=== PATIENT | female | born 1945 | race Caucasian/White ===

== ENCOUNTER 2017-09-01 11:33 | Inpatient (IN) | payer MEDICARE, OTHER ==
[~2017-09-01] VITALS: Ht 165.1 cm; Wt 70.7 kg
[~2017-09-01 11:33] MED LIST: ARAVA20 MG PO; METOPROLOL TART25 MG PO; PREDNISONE5 MG PO; XARELTO20 MG PO; ZOLOFT100 MG PO
[2017-09-01] MEDS ORDERED: PACERONE200 MG PO (12:06)
[2017-09-01] MEDS ORDERED: TOPROL XL100 MG PO (12:07)
[2017-09-01] MEDS ORDERED: ULTRAM50 MG PO (12:08)
[2017-09-01] MEDS ORDERED: CARTIA XT120 MG PO (12:08)
[2017-09-01] MEDS ORDERED: ELIQUIS5 MG PO (12:09)
--- NOTE | 2017-09-02 08:02 | EKG ---
[facility] [address] [place], [place] [address] Signed Atrial fibrillation Left bundle branch block Abnormal ECG When compared with ECG of 01-SEP-2017 12:01, (Unconfirmed) No significant change was found Confirmed by MADELIN COLVIN MD ([id number]) on 09/02/2017 8:02:37 AM Electronically Signed By: MADELIN COLVIN MD 09/02/17 0802 PATIENT NAME: KATTY QUINN DEBRA Electrocardiogram DATE OF : 45 PHYSICIAN: MADELIN COLVIN MD REPORT #: [id number] REPORT IS CONFIDENTIAL AND NOT TO BE RELEASED WITHOUT AUTHORIZATION
[2017-09-07] MEDS ORDERED: SULFAMETHOXAZO1 EAC1 PO (11:07)
== END 2017-09-07 16:06 | disposition home or self-care (01) | DRG 291 ==
LOC: ED 11:33 → CCU 16:25 → MS 09-04 16:00
PROVIDERS: ADMIT Internal Medicine
DX: I11.0 Hypertensive heart disease with heart failure (principal); J96.01 Acute respiratory failure with hypoxia; G93.40 Encephalopathy, unspecified; N39.0 Urinary tract infection, site not specified; I50.33 Acute on chronic diastolic (congestive) heart failure; K75.89 Other specified inflammatory liver diseases; I48.0 Paroxysmal atrial fibrillation; M06.9 Rheumatoid arthritis, unspecified; F41.9 Anxiety disorder, unspecified; B96.1 Klebsiella pneumoniae [K. pneumoniae] as the cause of diseases classified elsewhere; F17.210 Nicotine dependence, cigarettes, uncomplicated
CPT/HCPCS: 36415; 36600; 71010; 71020; 74177; 80048; 80053; 80069; 80076; 81001; 82803; 83605; 83690; 83735; 83880; 84100; 84425; 84439; 84443; 84484; 85025; 85610; 85730; 87040; 87077; 87088; 87186; 93005; 93010; 93306; 94640; 94660; 94667; 94668; 94762; 97110; 97116; 97161; J0295; J0696; J2405; J3475; J3480; J7040; J7120; J7512; Q9967

== ENCOUNTER 2019-07-27 13:53 | Emergency (ER) | payer MEDICARE, OTHER ==
[~2019-07-27] VITALS: Ht 167.6 cm; Wt 61.6 kg
[~2019-07-27 13:53] MED LIST changes: +CARTIA XT120 MG PO; +ELIQUIS5 MG PO; +PACERONE200 MG PO; +SULFAMETHOXAZO1 EAC1 PO; +TOPROL XL100 MG PO; +ULTRAM50 MG PO
[2019-07-27] MEDS ORDERED: NORCO 5-325 TA1 EACH PO (16:29)
== END 2019-07-27 17:19 | disposition home or self-care (01) ==
LOC: ED 13:53
DX: S59.202A Unspecified physeal fracture of lower end of radius, left arm, initial encounter for closed fracture (principal); X58.XXXA Exposure to other specified factors, initial encounter; I48.91 Unspecified atrial fibrillation; F17.200 Nicotine dependence, unspecified, uncomplicated; Z88.5 Allergy status to narcotic agent; Z91.048 Other nonmedicinal substance allergy status; Z79.899 Other long term (current) drug therapy; Z79.52 Long term (current) use of systemic steroids
CPT/HCPCS: 73110; 73130; 99283; 99406

== ENCOUNTER 2020-04-03 09:20 | Emergency (ER) | payer MEDICARE, OTHER ==
[~2020-04-03] VITALS: Ht 167.6 cm; Wt 61.2 kg
--- OUTSIDE RECORDS SUMMARY | ~2020-04-03 | XMS | Encounter Summary ---
Demographics + + + | Address | [address] | | | [place] [address] | + + + | Home Phone | | + + + | Preferred Language | Unknown | + + + | Marital Status | | + + + | Mormonism Affiliation | 1041 | + + + | Race | Unknown | + + + | Ethnic Group | Unknown | + + + Author + + + | Author | [facility] | | | and [place] | + + + | Organization | [facility] | | | and [place] | + + + | Address | Unknown | + + + | Phone | Unavailable | + + + Support + + + + + | Name | Relationship | Address | Phone | + + + + + | Juanita Espinal | ECON | [address] | | | | | [place] | | | | | [address] | | + + + + + Care Team Providers + +------+ + | Care Order Make Up Clerk Name | Role | Phone | + +------+ + | Hemanth Lima PCP | | | MD | | | + +------+ + Reason for Referral Evaluate & Treat (Routine) +--------+ + + + + + | Status | Reason | Specialty | Diagnoses / | Referred By | Referred To | | | | | Procedures | Contact | Contact | +--------+ + + + + + | Closed | Specialty | Podiatry | Diagnoses | [facility], | [facility], | | | Services | | Fracture of | Omi | Jaswant Huizar DPM | | | Required | | left foot, | MD Rm | [address] | | | | | closed, | [address] | [place] | | | | | initial | [place] | [place], [place] | | | | | encounter | [place], [place] | [address] | | | | | | [address] | Phone: | | | | | | Phone: | [phone] | | | | | | [phone] | Fax: | | | | | | Fax: | [phone] | | | | | | [phone] | | +--------+ + + + + + Evaluate & Treat (Routine) +--------+ + + + + + | Status | Reason | Specialty | Diagnoses / | Referred By | Referred To | | | | | Procedures | Contact | Contact | +--------+ + + + + + | Closed | Specialty | Orthopedic | Diagnoses | [place], | [place], | | | Services | Surgery | Fracture of | Omi | Chalino, DO | | | Required | | left foot, | MD Rm | [address] | | | | | closed, | [address] | [place] | | | | | initial | [place] | [place] | | | | | encounter | [place] | [address] | | | | | | [address] | Phone: | | | | | | Phone: | [phone] | | | | | | [phone] | Fax: | | | | | | Fax: | [phone] | | | | | | [phone] | | +--------+ + + + + + Reason for Visit + + + | Reason | Comments | + + + | Foot Pain | | + + + Encounter Details +--------+ + + + + | Date | Type | Department | Care Team | Description | +--------+ + + + + | 07/17/ | Emergency | [facility] | [facility]i Omi | Fracture of left | | 2017 | | [facility] | MD mR [address] | foot, closed, | | | | CENTER [address] | [address] [place] | initial encounter | | | | [place], [place] | [place] [address] | (Primary Dx); Fall, | | | | [address] | [phone] | initial encounter; | | | | [phone] | | Acute pain | +--------+ + + + + Social History + + + +--------+ + | Tobacco Use | Types | Packs/Day | Years | Date | | | | | Used | | + + + +--------+ + | Former Smoker | Cigarettes | 0.5 | 20 | Quit: 11/18/2016 | + + + +--------+ + + +---+---+---+ | Smokeless Tobacco: | | | | | Never Used | | | | + +---+---+---+ + + | Comments: On and off for 20yrs | + + + + +---------+ + | Alcohol Use | Drinks/Week | oz/Week | Comments | + + +---------+ + | No | 0 Standard drinks | 0.0 | | | | or equivalent | | | + + +---------+ + + + + | Sex Assigned at | Date Recorded | | | | + + + | Not on file | | + + + + + + + | Job Start Date | Occupation | Industry | + + + + | Not on file | Not on file | Not on file | + + + + + + + + | Travel History | Travel Start | Travel End | + + + + + + | No recent travel history available. | + + documented as of this encounter Last Filed Vital Signs + + + + + | Vital Sign | Reading | Time Taken | Comments | + + + + + | Blood Pressure | 149/69 | 07/17/2017 10:29 AM | | | | | PDT | | + + + + + | Pulse | 81 | 07/17/2017 10:29 AM | | | | | PDT | | + + + + + | Temperature | 36.8 C (98.3 F) | 07/17/2017 9:27 AM | | | | | PDT | | + + + + + | Respiratory Rate | 16 | 07/17/2017 10:29 AM | | | | | PDT | | + + + + + | Oxygen Saturation | 97% | 07/17/2017 10:29 AM | | | | | PDT | | + + + + + | Inhaled Oxygen | - | - | | | Concentration | | | | + + + + + | Weight | 68 kg (150 lb) | 07/17/2017 9:27 AM | | | | | PDT | | + + + + + | Height | - | - | | + + + + + | Body Mass Index | 24.21 | 07/17/2017 8:18 AM | | | | | PDT | | + + + + + documented in this encounter Functional Status + + + + | Functional Status | Response | Date of Assessment | + + + + | Are you deaf or do you have serious | No | 06/06/2017 | | difficulty hearing? | | | + + + + | Are you blind or do you have serious | No | 06/06/2017 | | difficulty seeing, even when wearing | | | | glasses? | | | + + + + | Do you have serious difficulty walking or | Yes | 06/06/2017 | | climbing stairs? (5 years old or older) | | | + + + + | Do you have difficulty dressing or bathing? | Yes | 06/06/2017 | | (5 years old or older) | | | + + + + | Because of a physical, mental, or emotional | Yes | 06/06/2017 | | condition, do you have difficulty doing | | | | errands alone such as visiting a doctor's | | | | office or shopping? [15 years old or | | | | older)] | | | + + + + + + + + | Cognitive Status | Response | Date of Assessment | + + + + | Because of a physical, mental, or emotional | Yes | 06/06/2017 | | condition, do you have serious difficulty | | | | concentrating, remembering, or making | | | | decisions? (5 years old or older) | | | + + + + documented as of this encounter Discharge Instructions AttachmentsThe following attachments cannot be sent through Care Everywhere.Reyes Mcbride )documented in this encounter Medications at Time of Discharge + + + +---------+ + + | Medication | Sig | Dispensed | Refills | Start | End Date | | | | | | Date | | + + + +---------+ + + | predniSONE | Take 5 mg by mouth | | 0 | | | | (DELTASONE) 5 mg | Daily. | | | | | | tablet | | | | | | + + + +---------+ + + | sertraline | Take 100 mg by mouth | | 0 | | | | (ZOLOFT) 100 mg | nightly. | | | | | | tablet | | | | | | + + + +---------+ + + | traMADol (ULTRAM) | Take 2 tablets by | 120 | 1 | 06/29/20 | | | 50 mg | mouth every 6 hours | tablet | | 17 | | | tabletIndications: | as needed for Pain. | | | | | | S/P lumbar fusion | | | | | | + + + +---------+ + + | VITAMIN D, | Take 100 Units by | | 0 | | | | CHOLECALCIFEROL, PO | mouth Daily. | | | | | + + + +---------+ + + | amiodarone | TAKE ONE TABLET BY | 60 | 0 | 07/03/20 | | | (PACERONE) 200 mg | MOUTH TWICE DAILY | tablet | | 17 | 7 | | tablet | | | | | | + + + +---------+ + + | CARTIA XT 120 MG | TAKE ONE CAPSULE BY | 30 | 0 | 07/03/20 | | | 24 hr capsule | MOUTH ONCE DAILY | capsule | | 17 | 7 | + + + +---------+ + + | ELIQUIS 5 MG | TAKE ONE TABLET BY | 60 | 0 | 07/03/20 | | | tablet | MOUTH TWICE DAILY | tablet | | 17 | 7 | + + + +---------+ + + | Magnesium 400 MG | Take 1 capsule by | | 0 | | | | CAPS | mouth Three times a | | | | 7 | | | week. | | | | | + + + +---------+ + + | metoprolol | Take 100 mg by mouth | | 0 | | | | succinate | nightly. | | | | 7 | | (TOPROL-XL) 100 mg | | | | | | | ER tablet | | | | | | + + + +---------+ + + | | Take 1 tablet by | 15 | 0 | 07/17/20 | | | oxyCODONE-acetaminop | mouth every 8 hours | tablet | | 17 | 7 | | hen (PERCOCET) 5-325 | as needed for Pain | | | | | | mg per tablet | for up to 5 days. | | | | | + + + +---------+ + + | rivaroxaban | Take 1 tablet by | 30 | 5 | 07/17/20 | | | (XARELTO) 20 mg | mouth Daily (with | tablet | | 17 | 7 | | tablet | dinner). | | | | | + + + +---------+ + + documented as of this encounter Plan of Treatment + + +--------+ + + | Name | Type | Priori | Associated Diagnoses | Order Schedule | | | | ty | | | + + +--------+ + + | Orthopedic Surgery, | Outpatient | Routin | Fracture of left | Ordered: 07/17/2017 | | External - AMB | Referral | e | foot, closed, | | | Referral | | | initial encounter | | + + +--------+ + + | Podiatry, External - | Outpatient | Routin | Fracture of left | Ordered: 07/17/2017 | | AMB Referral | Referral | e | foot, closed, | | | | | | initial encounter | | + + +--------+ + + documented as of this encounter Procedures + +--------+ + + + | Procedure Name | Priori | Date/Time | Associated Diagnosis | Comments | | | ty | | | | + +--------+ + + + | XR FOOT LEFT 3 + VW | STAT | 07/17/2017 | | Results for this | | | | 10:00 AM | | procedure are in the | | | | PDT | | results section. | + +--------+ + + + | XR ANKLE LEFT 3 + VW | STAT | 07/17/2017 | | Results for this | | | | 10:00 AM | | procedure are in the | | | | PDT | | results section. | + +--------+ + + + documented in this encounter Results XR Foot Left 3 + Vw (07/17/2017 10:00 AM PDT) + + | Specimen | + + | | + + + + + | Narrative | Performed At | + + + | CLINICAL INFORMATION: FOOT PAIN. COMPARISON: None available. | [facility] | | FINDINGS: 3 views of the left ankle. 3 views left foot | | | Moderately displaced fracture of the third metatarsal shaft, distal | | | aspect. Mildly displaced proximal metaphysis of the third metatarsal. | | | Possible nondisplaced fracture at the base of the fourth metatarsal. | | | No joint dislocation. Soft tissue swelling noted. Mild | | | degeneration at the first metatarsophalangeal joint. IMPRESSION | | | - Moderately displaced second metatarsal shaft fracture. Mildly | | | displaced third metatarsal metaphysis fracture and possible | | | nondisplaced fourth metatarsal base fracture. Dictated and Signed by: | | | Bert Farley MD Electronically signed: 07/17/2017 11:43 AM | | + + + + + | Procedure Note | + + | Jai Jeff Results In - 07/17/2017 11:46 AM PDT CLINICAL INFORMATION: FOOT PAIN. | | | | COMPARISON: None available. | | | | FINDINGS: | | 3 views of the left ankle. 3 views left foot | | | | Moderately displaced fracture of the third metatarsal shaft, distal aspect. | | Mildly displaced proximal metaphysis of the third metatarsal. Possible | | nondisplaced fracture at the base of the fourth metatarsal. | | | | No joint dislocation. | | | | Soft tissue swelling noted. | | | | Mild degeneration at the first metatarsophalangeal joint. | | | | | | IMPRESSION - Moderately displaced second metatarsal shaft fracture. Mildly | | displaced third metatarsal metaphysis fracture and possible nondisplaced fourth | | metatarsal base fracture. Dictated and Signed by: Bert Farley MD | | Electronically signed: 07/17/2017 11:43 AM | + + + +---------+ + + | Performing | Address | City/State/Zipcode | Phone Number | | Organization | | | | + +---------+ + + | [facility] | | | | + +---------+ + + XR Ankle Left 3 + Vw (07/17/2017 10:00 AM PDT) + + | Specimen | + + | | + + + + + | Narrative | Performed At | + + + | CLINICAL INFORMATION: FOOT PAIN. COMPARISON: None available. | [facility] | | FINDINGS: 3 views of the left ankle. 3 views left foot | | | Moderately displaced fracture of the third metatarsal shaft, distal | | | aspect. Mildly displaced proximal metaphysis of the third metatarsal. | | | Possible nondisplaced fracture at the base of the fourth metatarsal. | | | No joint dislocation. Soft tissue swelling noted. Mild | | | degeneration at the first metatarsophalangeal joint. IMPRESSION | | | - Moderately displaced second metatarsal shaft fracture. Mildly | | | displaced third metatarsal metaphysis fracture and possible | | | nondisplaced fourth metatarsal base fracture. Dictated and Signed by: | | | Bert Farley MD Electronically signed: 07/17/2017 11:43 AM | | + + + + + | Procedure Note | + + | Jai Jeff Results In - 07/17/2017 11:46 AM PDT CLINICAL INFORMATION: FOOT PAIN. | | | | COMPARISON: None available. | | | | FINDINGS: | | 3 views of the left ankle. 3 views left foot | | | | Moderately displaced fracture of the third metatarsal shaft, distal aspect. | | Mildly displaced proximal metaphysis of the third metatarsal. Possible | | nondisplaced fracture at the base of the fourth metatarsal. | | | | No joint dislocation. | | | | Soft tissue swelling noted. | | | | Mild degeneration at the first metatarsophalangeal joint. | | | | | | IMPRESSION - Moderately displaced second metatarsal shaft fracture. Mildly | | displaced third metatarsal metaphysis fracture and possible nondisplaced fourth | | metatarsal base fracture. Dictated and Signed by: Bert Farley MD | | Electronically signed: 07/17/2017 11:43 AM | + + + +---------+ + + | Performing | Address | City/State/Zipcode | Phone Number | | Organization | | | | + +---------+ + + | [facility] | | | | + +---------+ + + documented in this encounter Visit Diagnoses + + | Diagnosis | + + | Fracture of left foot, closed, initial encounter - Primary | + + | Fall, initial encounter | + + | Acute pain Other acute pain | + + documented in this encounter"
--- OUTSIDE RECORDS SUMMARY | ~2020-04-03 | XMS | Encounter Summary ---
Demographics + + + | Address | [address] | | | [place] [address] | + + + | Home Phone | | + + + | Preferred Language | Unknown | + + + | Marital Status | | + + + | Denominational Affiliation | 1041 | + + + | Race | Unknown | + + + | Ethnic Group | Unknown | + + + Author + + + | Author | [facility] | | | and [place] | + + + | Organization | [facility] | | | and [place] | + + + | Address | Unknown | + + + | Phone | Unavailable | + + + Support + + + + + | Name | Relationship | Address | Phone | + + + + + | Juanita Espinal | ECON | [address] | | | | | [place] | | | | | [address] | | + + + + + Care Team Providers + +------+ + | Care International Travel Consultant Name | Role | Phone | + +------+ + | Hemanth Lima PCP | | | MD | | | + +------+ + Reason for Visit Service/Procedure (Routine) +--------+--------+ + + + + | Status | Reason | Specialty | Diagnoses / | Referred By | Referred To | | | | | Procedures | Contact | Contact | +--------+--------+ + + + + | Closed | | Radiology | Diagnoses | | [facility] | | | | | Lumbar | [place], | [address] | | | | | radiculopath | Piotr Huizar MD | [place], | | | | | y | [address] | [place] | | | | | Procedures | [place] | [address] | | | | | [place] INJECT | [place], [place] | Phone: | | | | | ANES/STEROID | [address] | [phone] | | | | | FORAMEN | Phone: | Fax: | | | | | LUMBAR/SACRA | [phone] | [phone] | | | | | L W IMG | Fax: | | | | | | GUIDE ,1 | [phone] | | | | | | LEVEL [place] | | | | | | | INJECT | | | | | | | ANES/STEROID | | | | | | | FORAMEN | | | | | | | LUMBAR/SACRA | | | | | | | L W IMG | | | | | | | GUIDE ,EA | | | | | | | ADD LEVEL | | | | | | | [place] | | | | | | | TRIAMCINOLON | | | | | | | E ACET INJ | | | | | | | NOS, 10 MG | | | | | | | appt 08/14- | | | | | | | Left L5-S1, | | | | | | | Right S1 | | | | | | | TFESI | | | +--------+--------+ + + + + Encounter Details +--------+ + + + + | Date | Type | Department | Care Team | Description | +--------+ + + + + | 08/14/ | Hospital | [facility] | Bogdanowicz, | Lumbar | | 2016 | Encounter | MED CTR XRAY [address] | [place] [address] | radiculopathy; | | | | [address] [place] | [facility] | Spondylolisthesis of | | | | [place] [address] | [place] [address] | lumbar region; DDD | | | | [phone] | [phone] | (degenerative disc | | | | | | disease), lumbar; | | | | | [employer] | Lumbar foraminal | | | | | [place] | stenosis | +--------+ + + + + Social History + + + +--------+------+ | Tobacco Use | Types | Packs/Day | Years | Date | | | | | Used | | + + + +--------+------+ | Current Every Day | Cigarettes | 0.5 | 20 | | | Smoker | | | | | + + + +--------+------+ + +---+---+---+ | Smokeless Tobacco: | | [...] this encounter Last Filed Vital Signs + +---------+ + + | Vital Sign | Reading | Time Taken | Comments | + +---------+ + + | Blood Pressure | 183/82 | 08/14/2016 4:00 PM | | | | | PDT | | + +---------+ + + | Pulse | 94 | 08/14/2016 4:00 PM | | | | | PDT | | + +---------+ + + | Temperature | - | - | | + +---------+ + + | Respiratory Rate | - | - | | + +---------+ + + | Oxygen Saturation | - | - | | + +---------+ + + | Inhaled Oxygen | - | - | | | Concentration | | | | + +---------+ + + | Weight | - | - | | + +---------+ + + | Height | - | - | | + +---------+ + + | Body Mass Index | - | - | | + +---------+ + + documented in this encounter Medications at Time of Discharge + + + +---------+--------+ + | Medication | Sig | Dispensed | Refills | Start | End Date | | | | | | Date | | + + + +---------+--------+ + | predniSONE | Take 5 mg by mouth | | 0 | | | | (DELTASONE) 5 mg | Daily. | | | | | | tablet | | | | | | + + + +---------+--------+ + | sertraline | Take 100 mg by mouth | | 0 | | | | (ZOLOFT) 100 mg | nightly. | | | | | | tablet | | | | | | + + + +---------+--------+ + | VITAMIN D, | Take 100 Units by | | 0 | | | | CHOLECALCIFEROL, PO | mouth Daily. | | | | | + + + +---------+--------+ + | leflunomide | Take 20 mg by mouth | | 0 | | | | (ARAVA) 20 mg tablet | Daily. | | | | 7 | + + + +---------+--------+ + documented as of this encounter Plan of Treatment Not on filedocumented as of this encounter Procedures + +--------+ + + + | Procedure Name | Priori | Date/Time | Associated Diagnosis | Comments | | | ty | | | | + +--------+ + + + | FL EPIDURAL STEROID | Routin | 08/14/2016 | Lumbar | Results for this | | INJECTION LUMBAR | e | 4:15 PM | radiculopathy | procedure are in the | | TRANSFORAMINAL | | PDT | Spondylolisthesis of | results section. | | | | | lumbar region DDD | | | | | | (degenerative disc | | | | | | disease), lumbar | | | | | | Lumbar foraminal | | | | | | stenosis | | + +--------+ + + + documented in this encounter Results FL BEATA Lumbar Transforaminal (08/14/2016 4:15 PM PDT) + + | Specimen | + + | | + + + + + | Narrative | Performed At | + + + | 08/14/2016 Bilateral S1 Transforaminal Epidural Steroid Injection | [facility] | | Diagnosis: Lumbosacral radiculopathy ICD-10 Code M54.16 | [facility] | | Dorothea Calvo presents to the fluoroscopy suite for [facility] | | fluoroscopically-guided bilateral S1 transforaminal epidural steroid | - IMAGING | | injections as part of conservative management for chronic pain with | | | lumbosacral radiculopathy and degenerative disk disease. After | | | informed consent was obtained, the patient lay in the prone position | | | on the fluoroscopy table. The areas were identified under | | | fluoroscopic guidance. The areas were prepped and draped in sterile | | | fashion. A 25-gauge, 1.5-inch needle was inserted into each | | | region and approximately 3 mL of buffered 1% lidocaine was infused. | | | Then, a 22-gauge spinal needle was inserted into the superolateral | | | region of each S1 foramen and advanced into the epidural space | | | under fluoroscopic guidance. Confirmation into the epidural space | | | was obtained with infusion of approximately 1 mL of Omnipaque | | | contrast which showed epidural flow. Then, a combination of 2 mL | | | of 1% lidocaine and 2 mL of 6 mg/mL Celestone was infused divided | | | between the two sides. The patient tolerated the procedure well | | | without complications. Pre- and post-procedure blood pressures | | | were stable. The patient was given verbal as well as written | | | follow-up instructions. Prior to the start of the procedure, the | | | following were performed and/or verified, including correct patient | | | identity, correct site/side marked and visible, agreement on the | | | procedure to be done, correct patient positioning and an accurate | | | procedure consent form. Any safety precautions based on clinical | | | history and/or medication use have been addressed. I personally | | | performed the procedure above. Estimated blood loss: Minimal | | | Complications: None Findings: As expected Anesthesia: Local 1% | | | Lidocaine | | + + + + + + + + | Performing | Address | City/State/Zipcode | Phone Number | | Organization | | | | + + + + + | [facility] | [address] | [place], [place] | [phone] | | [facility] | | [address] | | | - IMAGING | | | | + + + + + documented in this encounter Visit Diagnoses + + | Diagnosis | + + | Lumbar radiculopathy Thoracic or lumbosacral neuritis or radiculitis, unspecified | + + | Spondylolisthesis of lumbar region Acquired spondylolisthesis | + + | DDD (degenerative disc disease), lumbar Degeneration of lumbar or lumbosacral | | intervertebral disc | + + | Lumbar foraminal stenosis Spinal stenosis, lumbar region, without neurogenic | | claudication | + + documented in this encounter Administered Medications + +--------+ +-------+------+------+ | Medication Order | MAR | Action | Dose | Rate | Site | | | Action | Date | | | | + +--------+ +-------+------+------+ | betamethasone (CELESTONE | Given | 08/14/20 | 12 mg | | | | SOLUSPAN) injection 12 mg 12 mg, | | 16 4:08 | | | | | Other, ONCE, [facility] 08/14/16 at | | PM PDT | | | | | 1615, For 1 dose, Shake well. Not | | | | | | | for IV use., | | | | | | + +--------+ +-------+------+------+ +---+---+ | | | +---+---+ + +-------+ +-------+---+---+ | iohexol (OMNIPAQUE 300) 300 | Given | 08/14/20 | 4 mLs | | | | mg/mL injection 4 mL 4 mL, | | 16 4:06 | | | | | Other, ONCE, [facility] 08/14/16 at 1615, | | PM PDT | | | | | For 1 dose | | | | | | + +-------+ +-------+---+---+ +---+---+ | | | +---+---+ + +-------+ +-------+---+---+ | lidocaine (PF) 1% injection 2 | Given | 08/14/20 | 2 mLs | | | | mL 2 mL, Other, ONCE, [facility] | | 16 4:08 | | | | | 08/14/16 at 1615, For 1 dose | | PM PDT | | | | + +-------+ +-------+---+---+ +---+---+ | | | +---+---+ + +-------+ +--------+---+---+ | lidocaine buffered 1% injection | Given | 08/14/20 | 10 mLs | | | | 10 mL 10 mL, Other, ONCE, [facility] | | 16 4:04 | | | | | 08/14/16 at 1615, For 1 dose | | PM PDT | | | | + +-------+ +--------+---+---+ +---+---+ | | | +---+---+ documented in this encounter"
--- OUTSIDE RECORDS SUMMARY | ~2020-04-03 | XMS | Encounter Summary ---
Demographics + + + | Address | [address] | | | [place] [address] | + + + | Home Phone | | + + + | Preferred Language | Unknown | + + + | Marital Status | | + + + | Temple Affiliation | 1041 | + + + | Race | Unknown | + + + | Ethnic Group | Unknown | + + + Author + + + | Author | [facility] | | | and [place] | + + + | Organization | [facility] | | | and [place] | + + + | Address | Unknown | + + + | Phone | Unavailable | + + + Support + + + + + | Name | Relationship | Address | Phone | + + + + + | Juanita Espinal | ECON | [address] | | | | | [place] | | | | | [address] | | + + + + + Care Team Providers + +------+ + | Care Dental Lab Technician Name | Role | Phone | + +------+ + | Hemanth Lima PCP | | | MD | | | + +------+ + Encounter Details +--------+ + + + + | Date | Type | Department | Care Team | Description | +--------+ + + + + | 07/23/ | Hospital | [facility] | Cornia, Jaswant T, | | | 2017 | Encounter | MED CTR OR INTRA OP | DPM [address] | | | | | [address] | [place], [place] | | | | | [place], [place] | [address] | | | | | [address] | [phone] | | | | | [phone] | | | +--------+ + + + + Social [...] + + + | Blood Pressure | 130/46 | 07/23/2017 2:45 PM | | | | | PDT | | + + + + + | Pulse | 57 | 07/23/2017 2:45 PM | | | | | PDT | | + + + + + | Temperature | 36.5 C (97.7 F) | 07/23/2017 2:27 PM | | | | | PDT | | + + + + + | Respiratory Rate | 16 | 07/23/2017 2:45 PM | | | | | PDT | | + + + + + | Oxygen Saturation | 95% | 07/23/2017 2:45 PM | | | | | PDT | | + + + + + | Inhaled Oxygen | - | - | | | Concentration | | | | + + + + + | Weight | 68.5 kg (151 lb) | 07/23/2017 11:36 AM | | | | | PDT | | + + + + + | Height | 170.2 cm (5' 7") | 07/23/2017 11:36 AM | | | | | PDT | | + + + + + | Body Mass Index | 23.65 | 07/23/2017 11:36 AM | | | | | PDT [...] documented as of this encounter Discharge Instructions Lilibeth Webster RN - 07/23/2017 Recovery After Procedural Sedation (Adult) You have been given medicine by vein to make you sleep during your surgery. This may have i ncluded both a pain medicine and sleeping medicine. Most of the effects have worn off. But y ou may still have some drowsiness for the next 6 to 8 hours. Home care Follow these guidelines when you get home: For the next 8 hours, you should be watched by a responsible adult. This person should m sarah sure your condition is not getting worse. Don't drink any alcoholfor the next [address], operate dangerous machinery, or make important business or personal decisio nsduring the next 24 hours. Note: Your healthcare provider may tell you not to take any medicine by mouth for pain or s leep in the next 4 hours. These medicines may react with the medicines you were given in the hospital. This could cause a much stronger response than usual. Follow-up care Follow up with your healthcare provider if you are not alert and back to your usual level o f activity within 12 hours. When to seek medical advice Call your healthcare provider right away if any of these occur: Drowsiness gets worse Weakness or dizziness gets worse Repeated vomiting You can't be awakened Date Last Reviewed: 09/02/[id number] The [employer]. [address] [place] [address]. All righ ts reserved. This information is not intended as a substitute for professional medical care. Always follow your healthcare professional's instructions. documented in this encounter Medications at Time [...] + + + | XR FOOT LEFT 2 VW | Routin | 07/23/2017 | | Results for this | | | e | 2:14 PM | | procedure are in the | | | | PDT | | results section. | + +--------+ + + + | FL FUNMI STATS NO | Routin | 07/23/2017 | | Results for this | | CHARGE | e | 2:14 PM | | procedure are in the | | | | PDT | | results section. | + +--------+ + + + | ORIF METATARSAL | | 07/23/2017 | Closed displaced | | | | | 1:08 PM | fracture of second | | | | | PDT | metatarsal bone of | | | | | | left foot, initial | | | | | | encounter | | + +--------+ + + + | CBC WITH | Routin | 07/23/2017 | | Results for this | | DIFFERENTIAL | e | 12:21 PM | | procedure are in the | | | | PDT | | results section. | + +--------+ + + + | BASIC METABOLIC | Routin | 07/23/2017 | | Results for this | | PANEL | e | 12:21 PM | | procedure are in the | | | | PDT | | results section. | + +--------+ + + + | ECG 12 LEAD | Routin | 07/23/2017 | | Results for this | | | e | 11:55 AM | | procedure are in the | | | | PDT | | results section. | + +--------+ + + + documented in this encounter Results XR Foot Left 2 Vw (07/23/2017 2:14 PM PDT) + + | Specimen | + + | | + + + + + | Narrative | Performed At | + + + | XR FOOT LEFT 2 VW 07/23/2017 1:40 PM HISTORY: intra op. | [facility] | | COMPARISON: None. FINDINGS: Intraoperative x-rays show placement | | | of ORIF hardware into the second metatarsal. IMPRESSION - ORIF | | | of second metatarsal. Dictated and Signed by: Ilya Garcia MD | | | Electronically signed: 07/23/2017 6:09 PM | | + + + + + | Procedure Note | + + | Jai Jeff Results In - 07/23/2017 6:12 PM PDT XR FOOT LEFT 2 VW 07/23/2017 1:40 PM | | | | HISTORY: intra op. | | | | COMPARISON: None. | | | | FINDINGS: | | Intraoperative x-rays show placement of ORIF hardware into the second | | metatarsal. | | | | IMPRESSION - | | ORIF of second metatarsal. | | | | Dictated and Signed by: Ilya Garcia MD | | Electronically signed: 07/23/2017 6:09 PM | + + + +---------+ + + | Performing | Address | City/State/Zipcode | Phone Number | | Organization | | | | + +---------+ + + | [facility] | | | | + +---------+ + + [place] C-Arm Stats No Charge (07/23/2017 2:14 PM PDT) + + | Specimen | + + | | + + + + + | Narrative | Performed At | + + + | No Radiologist interpretation, please see Chart Review. | [facility] | + + + + +---------+ + + | Performing | Address | City/State/Zipcode | Phone Number | | Organization | | | | + +---------+ + + | [facility] | | | | + +---------+ + + CBC with Differential (07/23/2017 12:21 PM PDT) + + + + + + | Component | Value | Ref Range | Performed | Pathologist | | | | | At | Signature | + + + + + + | WBC | 8.5 | 4.0 - 11.0 K/uL | [facility] | | | | | | [facility] | [facility] - | | | | | | [facility] | | + + + + + + | RBC | 3.83 | 3.70 - 5.20 | [facility] | | | | | M/uL [facility] | [facility] - | | | | | | [facility] | | + + + + + + | Hemoglobin | 11.4 (L) | 11.5 - 16.0 | [facility] | | | | | g/dL | [facility] | | | | [facility] - | | | | | | [facility]ORY | | + + + + + + | Hematocrit | 34.9 | 34.0 - 47.0 % | [facility] | | | | | | [facility] | | | [facility] | | | | | | [facility] | | + + + + + + | MCV | 90.9 | 83.0 - 101.0 fL | [facility] | | | | | | [facility] | [facility] | [facility] | | | | | [facility] - | | | | | | [facility]ATORY | | + + + + + + | MCH | 29.7 | 28.0 - 35.0 pg | [facility] | | | | | | [facility] | | | | | | [facility] | | | | | | [facility] - | | | | | | [facility]ATORY | | + + + + + + | MCHC | 32.7 | 32.0 - 36.0 | [facility] | | | | | g/dL | [facility] | [facility] | | | [facility] - | | | | | | [facility]ATORY | | + + + + + + | RDW-CV | 15.1 (H) | <15.0 % | [facility] | | | | | | [facility] | | | | | [facility] - | | | | | | [facility]ORY | | + + + + + + | Platelet | 277 | 140 - 440 K/uL | [facility] | | | Count | | | [facility] | | [facility] | [facility] | | | | | [facility] - | | | | | | [facility]ORY | | + + + + + + | MPV | 8.5 | fL | [facility] | | | | | | [facility] | [facility] | [facility] | | | | | [facility] - | | | | | | [facility]ORY | | + + + + + + | % | 77.5 | 45.0 - 82.0 % | [facility] | | | Neutrophils | | | [facility] | | [facility] | | [facility] | | | | | | [facility] - | | | | | | LAB[facility]ATORY | | + + + + + + | % | 13.2 (L) | 20.0 - 45.0 % | [facility] | | | Lymphocytes | | | [facility] | [facility] | [facility] | | | | | [facility] - | | | | | | LAB[facility]ATORY | | + + + + + + | % Monocytes | 8.0 | 4.0 - 12.0 % | [facility] | | | | | | [facility] | | | | | | [facility] | | | | | [facility] - | | | | | | LAB[facility]ATORY | | + + + + + + | % | 0.7 | 0.0 - 5.0 % | [facility] | | | Eosinophils | | | [facility] | | | | | | [facility] | | | | | | [facility] - | | | | | | LAB[facility]ATORY | | + + + + + + | % Basophils | 0.6 | 0.0 - 1.0 % | [facility] | | | | | | [facility] | [facility] | [facility] | | | | | [facility] - | | | | | | LAB[facility]ATORY | | + + + + + + | Absolute | 6.60 | 1.80 - 8.50 | [facility] | | | Neutrophils | | K/uL | [facility] | [facility] | [facility] | | | | | | [facility] - | | | | | | LAB[facility]ATORY | | + + + + + + | Absolute | 1.10 | 0.60 - 3.20 | [facility] | | | Lymphocytes | | K/uL | [facility] | | [facility] | | [facility] | | | | | | [facility] - | | | | | | LAB[facility]ATORY | | + + + + + + | Absolute | 0.70 | 0.00 - 1.00 | [facility] | | | Monocytes | | K/uL | [facility] | | | | | | [facility] | | | | | | [facility] - | | | | | | LAB[facility]ATORY | | + + + + + + | Absolute | 0.10 | 0.00 - 0.40 | [facility] | | | Eosinophils | | K/uL | [facility] | | | | | | [facility] | | | | | | [facility] - | | | | | | LAB[facility]ATORY | | + + + + + + | Absolute | 0.00 | 0.00 - 0.10 | [facility] | | | Basophils | | K/uL | [facility] | | | | | | [facility] | | | | | | [facility] - | | | | | | LABORATORY | | + + + + + + + + | Specimen | + + | Blood | + + + + + + + | Performing | Address | City/State/Zipcode | Phone Number | | Organization | | | | + + + + + | [facility] | [address] | [place] | [phone] | | [facility] | | [address] | | | - LABORATORY | | | | + + + + + Basic Metabolic Panel (07/23/2017 12:21 PM PDT) + + + + + + | Component | Value | Ref Range | Performed | Pathologist | | | | | At | Signature | + + + + + + | Na | 138 | 136 - 149 | [facility] | | | | | mmol/L | [facility] | | | | | [facility] | | | | [facility] - | | | | | | LAB[facility]ATORY | | + + + + + + | K | 3.5 | 3.5 - 5.1 | [facility] | | | | | mmol/L | [facility] | | | | | | [facility] | | | | | | [facility] - | | | | | | LAB[facility]ATORY | | + + + + + + | Cl | 104 | 98 - 109 mmol/L | [facility] | | | | | | [facility] | | | | | | [facility] | | | | | | [facility] - | | | | | | LAB[facility]ATORY | | + + + + + + | CO2 | 25 | 24 - 31 mmol/L | [facility] | | | | | | [facility] | | | | | | [facility] | | | | | | [facility] - | | | | | | LAB[facility]ATORY | | + + + + + + | Anion Gap | 9 | 3 - 16 mmol/L | [facility] | | | | | | [facility] | | | | | | [facility] | | | | | | [facility] - | | | | | | LAB[facility]ATORY | | + + + + + + | Glucose | 111 (H) | 70 - 109 mg/dL | [facility] | | | | | | [facility] | | | | | | [facility] | | | | | | [facility] - | | | | | | LABORATORY | | + + + + + + | BUN | 9 | 7 - 18 mg/dL | [facility] | | | | | | [facility] | | | | | | [facility] | | | | | | [facility] - | | | | | | LABORATORY | | + + + + + + | Creatinine | 0.61 | 0.60 - 1.30 | [facility] | | | | | mg/dL | [facility] | | | | | | [facility] | | | | | | CENTER - | | | | | | LABORATORY | | + + + + + + | eGFR if not | >60Comment: GLOMERULAR | >=60 | [facility] | | | | FILTRATION | mL/min/1.73m2 | [facility] | | | [place] | RATE,ESTIMATED | | MEDICAL | | | | mL/min/1.95t2Luwa than | | CENTER - | | | | 60 Chronic kidney | | LABORATORY | | | | disease,if found over a | | | | | | 3-month period.Less than | | | | | | 15 Kidney failureFor | | | | | | | | | | | | Americans,multiply the | | | | | | calculated GFR by 1.21. | | | | | | | | | | + + + + + + | Calcium | 9.1 | 8.3 - 10.5 | [facility] | | | | | mg/dL | [facility] | | | | | | [facility] | | | | | | CENTER - | | | | | | LABORATORY | | + + + + + + | BUN/Creatin | 14.8 | | [facility] | | | ine Ratio | | | [facility] | | | | | | [facility] | | | | | | CENTER - | | | | | | LABORATORY | | + + + + + + + + | Specimen | + + | Blood | + + + + + + + | Performing | Address | City/State/Zipcode | Phone Number | | Organization | | | | + + + + + | [facility] | [address] | [place] | [phone] | | [facility] | | [address] | | | - LABORATORY | | | | + + + + + ECG 12 lead (07/23/2017 11:55 AM PDT) + + + + + + | Component | Value | Ref Range | Performed | Pathologist | | | | | At | Signature | + + + + + + | VENTRICULAR | 55 | BPM | [facility] | | | RATE EKG | | | | | + + + + + + | ATRIAL RATE | 55 | BPM | [facility] | | + + + + + + | P-R | 148 | ms | [facility] | | | INTERVAL | | | | | + + + + + + | QRS | 78 | ms | [facility] | | | DURATION | | | | | + + + + + + | Q-T | 472 | ms | [facility] | | | INTERVAL | | | | | + + + + + + | Q-T | 451 | ms | [facility] | | | INTERVAL | | | | | | (CORRECTED) | | | | | + + + + + + | P WAVE AXIS | 74 | degrees | [facility] | | + + + + + + | QRS AXIS | 39 | degrees | [facility] | | + + + + + + | T AXIS | 61 | degrees | [facility] | | + + + + + + | INTERPRETAT | Sinus bradycardia with | | [facility] | | | ION TEXT | sinus arrhythmiaPossible | | | | | | Left atrial | | | | | | enlargementPossible | | | | | | Septal infarct , age | | | | | | undeterminedBorderline | | | | | | ECGWhen compared with | | | | | | ECG of 17-JUL-2017 | | | | | | 08:27,Criteria for | | | | | | Possible Septal infarct | | | | | | , age undetermined are | | | | | | now presentConfirmed by | | | | | | TRACIE RAMOS MD ([id number]) | | | | | | on 07/24/2017 6:58:49 AM | | | | + + + + + + + + | Specimen | + + | | + + + + + | Narrative | Performed At | + + + | | | + + + + +---------+ + + | Performing | Address | City/State/Zipcode | Phone Number | | Organization | | | | + +---------+ + + | [facility] | | | | + +---------+ + + documented in this encounter Visit Diagnoses Not on filedocumented in this encounter Administered Medications + +--------+---------+------+------+------+ | Medication Order | MAR | Action | Dose | Rate | Site | | | Action | Date | | | | + +--------+---------+------+------+------+ + +---+ | albuterol 2.5 mg/3 mL nebulizer | | | solution 2.5 mg 2.5 mg, | | | Nebulization, ONCE PRN, Wheezing, | | | Starting [facility] 07/23/17 at 1429, For | | | 1 dose, Notify anesthesia if | | | patient is wheezing and does not | | | have a history of asthma or COPD | | | or current smoking., | | | Recovery/Phase I | | + +---+ | | | + +---+ | albuterol-ipratropium (DUONEB) | | | 2.5-0.5 mg/3 mL nebulizer | | | solution 3 mL 3 mL, | | | Nebulization, ONCE PRN, Wheezing, | | | Starting [facility] 07/23/17 at 1129, For | | | 1 dose, Pre-op | | + +---+ | | | + +---+ | dextrose 50% injection 12.5-25 | | | g 12.5-25 g, Intravenous, EVERY | | | 15 MIN PRN, Low Blood Sugar, Give | | | 12.5g (25 mL) IV if blood | | | glucose 50-69 mg/dL. Give 25g | | | (50 mL) IV if blood glucose < 50, | | | Starting [facility] 07/23/17 at 1129, | | | Repeat in 15 min if blood glucose | | | remains < 70 mg/dL. Repeat | | | blood glucose in 30 min once | | | blood glucose > 70., Pre-op | | + +---+ | | | + +---+ | fentaNYL (PF) injection 25-50 | | | mcg 25-50 mcg, Intravenous, | | | EVERY 5 MIN PRN, Pain, Starting | | | [facility] 07/23/17 at 1429, Maximum total | | | dose 250 mcg. PACU IV Narcotic | | | Priority: Only use fentanyl for | | | immediate post-op pain (one dose) | | | or breakthrough pain when any | | | other IV narcotics ordered have | | | been ineffective (if ordered). | | | If both morphine and | | | hydromorphone are ordered, use | | | morphine first, and use | | | hydromorphone if morphine | | | ineffective., Recovery/Phase I | | + +---+ | | | + +---+ + +---------+ +---+-------+--------+ | lactated ringers (LR) infusion | New Bag | 07/23/20 | | 100 | Right | | at 10-100 mL/hr, Intravenous, | | 17 12:12 | | mL/hr | Arm | | CONTINUOUS, Starting [facility] 07/23/17 | | PM PDT | | | | | at 1145, TKO., Pre-op | | | | | | + +---------+ +---+-------+--------+ + +---+ | | | + +---+ | ondansetron (ZOFRAN ODT) | | | disintegrating tablet 4 mg 4 mg, | | | Oral, EVERY 6 HOURS PRN, Nausea, | | | Vomiting, Starting [facility] 07/23/17 at | | | 1429, First line agent, | | | Post-op/Phase II | | + +---+ | | | + +---+ | oxyCODONE (ROXICODONE) tablet | | | 2.5-10 mg 2.5-10 mg, Oral, EVERY | | | 3 HOURS PRN, Pain, Starting [facility] | | | 07/23/17 at 1429, First dose must | | | be the lowest dose, can titrate | | | to effective dose by repeat of | | | lowest dose every 60 minutes prn | | | pain, may not exceed maximum dose | | | ordered per interval. Use Pasero | | | Sedation Scale., Post-op/Phase | | | II | | + +---+ | | | + +---+ documented in this encounter
--- OUTSIDE RECORDS SUMMARY | ~2020-04-03 | XMS | Encounter Summary ---
Demographics + + + | Address | [address] | | | [place] [address] | + + + | Home Phone | | + + + | Preferred Language | Unknown | + + + | Marital Status | | + + + | Zoroastrianism Affiliation | 1041 | + + + | Race | Unknown | + + + | Ethnic Group | Unknown | + + + Author + + + | Author | [facility] | | | and [place] | + + + | Organization | [facility] | | | and [place] | + + + | Address | Unknown | + + + | Phone | Unavailable | + + + Support + + + + + | Name | Relationship | Address | Phone | + + + + + | Juanita Espinal | ECON | [address] | | | | | [place] | | | | | [address] | | + + + + + Care Team Providers + +------+ + | Care Mold Changer Name | Role | Phone | + [...] + + | Closed | Specialty | Physical | Diagnoses | Sucharda, | [facility] | | | Services | Therapy | S/P lumbar | Corbin E, | [facility] | | | Required | | fusion | PA-C [address] | | | | | Dizziness | [address] | [address] | | | | | Balance | [address] | [place], [place] | | | | | problem [facility] | [place], | [address] | | | | | - PT | [place] [address] | Phone: | | | | | Procedures | Phone: | [phone] | | | | | [facility] unable | [phone] | Fax: | | | | | to reach, VM | Fax: | [phone] | | | | | full | [phone] | | | | | | 08/17/18 [facility] | | | | | | | 08/10 | | | | | | | Pending Pt | | | | | | | call back | | | | | | | [facility] 08/03 | | | | | | | Called Pt x1 | | | | | | | [facility] 07/12 | | | | | | | HIM | | | +--------+ + + + + + Evaluate & Treat (Routine) +--------+ + + + + + | Status | Reason | Specialty | Diagnoses / | Referred By | Referred To | | | | | Procedures | Contact | Contact | +--------+ + + + + + | Closed | Specialty | Neurology | Diagnoses | Sucharda, | Cruz, | | | Services | | Dizziness | Corbin Pollock, | Marcelo Tan MD | | | Required | | Balance | PA-C [address] | | | | | problem | [address] | [place] | | | | | | [address] | [place] [address] | | | | | | [place], | [address] [place] | | | | | | [place] [address] | [place], [place] | | | | | | Phone: | [phone] Phone: | | | | | | [phone] | [phone] | | | | | | Fax: | Fax: | | | | | | [phone] | [phone] | +--------+ + + + + + Reason for Visit +---------+ + | Reason | Comments | +---------+ + | Post Op | 12M | +---------+ + Encounter Details +--------+---------+ + + + | Date | Type | Department | Care Team | Description | +--------+---------+ + + + | 06/29/ | Office | [facility] [place] | Corbin Boo, | S/P lumbar fusion | | 2018 | Visit | NEUROSURGERY [address] | PA-C [address] | (Primary Dx); | | | | [address] | [address] [place] | Dizziness; Balance | | | | [place], [place] | [place] [address] | problem | | | | [address] | [phone] | | | | | [phone] | | | +--------+---------+ + + + Social History + + [...] + + + | Blood Pressure | 164/72 | 06/29/2018 10:26 AM | | | | | PDT | | + + + + + | Pulse | 56 | 06/29/2018 10:26 AM | | | | | PDT | | + + + + + | Temperature | - | - | | + + + + + | Respiratory Rate | - | - | | + + + + + | Oxygen Saturation | - | - | | + + + + + | Inhaled Oxygen | - | - | | | Concentration | | | | + + + + + | Weight | 59 kg (130 lb) | 06/29/2018 10:26 AM | | | | | PDT | | + + + + + | Height | 167.6 cm (5' 6") | 06/29/2018 10:26 AM | | | | | PDT | | + + + + + | Body Mass Index | 20.98 | 06/29/2018 10:26 AM | | | | | PDT [...] + + documented as of this encounter Patient Instructions Patient Instructions Corbin Boo PA-C - 06/29/2018 9:45 AM PDTI am recommending joaquin t you go and see a neurologist for the evaluation of your severe dizziness. I will order PT for you which will help a little but most important is for you to see a amor rologist. Follow up with us on an as needed basis. documented in this encounter Progress Notes Corbin Boo PA-C - 06/29/2018 9:45 AM PDT Corbin Boo PA-C [address] [facility] [place] [place], [address] [place] [address] PHONE: FAX: NEUROSURGERY FOLLOW-UP CHIEF COMPLAINT: Chief Complaint Patient presents with Post Op 12M HISTORY OF PRESENT ILLNESS: The patient is a 73 y.o. female that had a lumbar fusion for b ack and bilateral leg symptoms on 05/26/2017. She returns and overall is doing well. The gregor prieto mentions that she has been without pain for the last year. Patient denies having any pain from surgery since the day she arrived at home. She was going to physical therapy gagnon clovis her daughter got really sick so she had to quit. She is hoping to get back into physical therapy. Physical therapy was very helpful for her and she was able to get up and walking. 3-4 months ago, patient felt she was doing well with small short walks on stable ground ins rishi of her house. She still has a lot of problems with her balance and dizziness and because of this she is unable to walk. She presents today in a wheelchair. She has to be able to ze ro in on something when she is standing so that she does not fall. When she is standing she is not able to turn otherwise she will fall. In the shower she had severe problems from dizz iness due to everything being white. Getting a dark shower curtain helped this quite a bit. She does have some right leg weakness and numbness however symptoms are stable and much bett er for her now than before surgery. The patient has been walking as much as she can tolerate. She is taking pain medications at this point. The patient has had no issues with her surgical site. PAST MEDICAL HISTORY: Past Medical History: Diagnosis Date Acute pansinusitis Atrial fibrillation ([facility]) 08-18-2016 Atypical chest pain Bilateral leg pain Contusion of knee with skin surface intact Right Anterior COPD (chronic obstructive pulmonary disease) ([facility]) Heart failure ([facility]) [place]AC [place] (hard of hearing) Hyperlipoproteinemia type Li-a Impacted cerumen of right ear Low back pain Lumbar foraminal stenosis 08/13/2016 Lumbar herniated disc L1/T2 Left Lumbar neuritis L3-L4, L4-L5, L5/S1 Lumbar spondylosis Lumbar stenosis Moderate major depression, single episode ([facility]) Neoplasm of uncertain behavior of skin PONV (postoperative nausea and vomiting) projectile vomitting waking up after surgery Primary localized osteoarthritis of left hip Rheumatoid arthritis involving multiple sites ([facility]) Sacroiliac pain Spinal stenosis, lumbar Lumbar canal with neurogenic claudication Spondylolisthesis of lumbar region L3/L4, L4/L5 TB (tuberculosis) Thoracic neuritis T1-T2 PAST SURGICAL HISTORY: Past Surgical History: Procedure Laterality Date APPENDECTOMY Cataract surgery 2008 Dr. Andrew Maldonado FOOT SURGERY Left 07/23/2017 Procedure: O.R.I.F. of Left 2nd Metatarsal Fracture; Surgeon: Jaswant Dolan DPM; Locati on: [facility] Anterior 05/26/2017 Procedure: L2-3, L3-4, L4-5 Lateral Anterior Interbody Fusion; L5-S1 Transforaminal Lumbar Interbody Fusion; Posterior Fusion @ L2-3, L3-4, L4-5, L5-S1; Surgeon: Edin Lynn MD; L ocation: [facility] OR Tumor in neck [facility] CURRENT MEDICATIONS: Current Outpatient Prescriptions Medication Sig Dispense Refill amiodarone (PACERONE) 200 mg tablet TAKE ONE TABLET BY MOUTH TWICE DAILY 180 tablet 3 apixaban (ELIQUIS) 5 mg tablet TAKE ONE TABLET BY MOUTH TWICE DAILY 60 tablet 5 CARTIA XT 120 MG 24 hr capsule TAKE ONE CAPSULE BY MOUTH ONCE DAILY 30 capsule 5 furosemide (LASIX) 20 mg tablet Take 20 mg by mouth. Three times weekly. metoprolol succinate (TOPROL-XL) 50 mg 24 hr tablet Take 1 tablet by mouth nightly. 90 tablet 3 predniSONE (DELTASONE) 5 mg tablet Take 5 mg by mouth Daily. sertraline (ZOLOFT) 100 mg tablet Take 100 mg by mouth nightly. spironolactone (ALDACTONE) 100 MG tablet Take 100 mg by mouth Daily. traMADol (ULTRAM) 50 mg tablet Take 2 tablets by mouth every 6 hours as needed for Pain . 120 tablet 1 VITAMIN D, CHOLECALCIFEROL, PO Take 100 Units by mouth Daily. No current facility-administered medications for this visit. ALLERGIES: Allergies Allergen Reactions Adhesive & Tape Other (See Comments) Blisters where tape & bandages Uncoded Nonscreenable Allergen Nausea And Vomiting Problems related to anesthetic when waking up Codeine Rash Nabumetone Diarrhea SOCIAL HISTORY: The patient reports that she quit smoking about 19 months ago. Her smoking use included Ci garettes. She has a 10.00 pack-year smoking history. She has never used smokeless tobacco. S he reports that she does not drink alcohol or use drugs. FAMILY HISTORY: Family History Problem Relation Age of Onset Tuberculosis Father 26 Cancer Mother 77 Alcohol abuse Mother No Known Problems Paternal Grandfather No Known Problems Paternal Grandmother No Known Problems Maternal Grandfather Lupus Maternal Grandmother Alcohol abuse Sister 2 sisters No Known Problems Brother Other (see comment) Sister Pancreatic cancer No Known Problems Child INTERIM PHYSICAL EXAMINATION: Blood pressure 164/72, pulse 56, height 1.676 m (5' 6"), weight 59 kg (130 lb), not current ly . Body mass index is 20.98 kg/m. REVIEW OF SYSTEMS GENERALLY: No fever, no night sweats, no anemia, no fatigue, no recent profound weight ch anges. EYES: No eye problems, no use of corrective lenses, no eye injury, no double vision, no bl indness. EARS, NOSE, AND THROAT: No changes in taste or smell, no hearing difficulty, no ringing in the ears, no ear drainage, no dizziness, no voice changes, no difficulty swallowing, no sig nificant snoring, no sleep apnea, no sinus problems, + major dental work. NEUROLOGICALLY: Please see the review of systems discussed above in the history of present illness. In addition, the patient has numbness/pain of legs, coordination difficulty , andre nge in walk. PSYCHIATRIC: + depression, no sleep disorders, + anxiety, no bipolar disorder, no psychoti c episodes. CARDIOVASCULAR: No heart attacks, no heart murmur, no heart fluttering, no chest pain, no ankle swelling. LUNG DISEASE: No shortness of breath, no cough, no tuberculosis, no bloody cough, no asth ma, no emphysema/COPD. GASTROINTESTINAL: No bowel disease, no nausea or vomiting, no rectal bleeding, no constipa tion, no stool incontinence, no liver disease, no gallbladder disease, no abdominal pain, no ulcers. KIDNEY DISEASE: No urinary frequency, no painful or difficult urination, no incontinence. ENDOCRINE: No diabetes, no thyroid disease, no osteopenia or osteoporosis, no breast drain age. SKIN: No breast lumps, no skin changes, no rashes, no itches. HEMATOLOGIC/LYMPHATIC: No enlarged lymph nodes, no easy or unusual bleeding, no personal h istory of cancer. RHEUMATOLOGIC: No joint arthritis, + rheumatoid arthritis. GENERAL: Dorothea Calvo is in no acute distress with unlabored respirations. SPINE: The patient s incisions are well healed. EXTREMITIES: No lower extremity edema. NEUROLOGICAL EXAMINATION: MENTAL STATUS: The patient is awake, alert, and oriented. She follows simple and complex commands MOTOR EXAM: Motor strength is 5/5. This is unchanged when compared to the preoperative exa m. SENSORY EXAM: The sensory examination is worsened when compared to the preoperative exam. Fairly significant to hypertensivity to right medial calf. When patient performed a rhomberg test she was very unsteady and had trouble self correctin g. She had to open her eyes and take a step to prevent falling. No pronator drift was apprec iated. RADIOGRAPHIC REVIEW: The patient s x-rays show stable instrumentation and alignment and were reviewed with the patient today. Increased bony fusion is noted but it is not complete. ASSESSMENT: Encounter Diagnoses Name Primary? S/P lumbar fusion Yes Dizziness Balance problem Past Medical History: Diagnosis Date Acute pansinusitis Atrial fibrillation (HCC) 08-18-2016 Atypical chest pain Bilateral leg pain Contusion of knee with skin surface intact Right Anterior COPD (chronic obstructive pulmonary disease) ([facility]) Heart failure ([facility]) [place] (hard of hearing) Hyperlipoproteinemia type Li-a Impacted cerumen of right ear Low back pain Lumbar foraminal stenosis 08/13/2016 Lumbar herniated disc L1/T2 Left Lumbar neuritis L3-L4, L4-L5, L5/S1 Lumbar spondylosis Lumbar stenosis Moderate major depression, single episode (HCC) Neoplasm of uncertain behavior of skin PONV (postoperative nausea and vomiting) projectile vomitting waking up after surgery Primary localized osteoarthritis of left hip Rheumatoid arthritis involving multiple sites (HCC) Sacroiliac pain Spinal stenosis, lumbar Lumbar canal with neurogenic claudication Spondylolisthesis of lumbar region L3/L4, L4/L5 TB (tuberculosis) Thoracic neuritis T1-T2 PLAN: Overall, the patient is doing okay. Most of the preoperative symptoms are resolving as exp ected. We discussed increasing the patient s activities now allowing up to a 75 pound lifting re striction. The patient should increase range of motion activities as tolerated. They shoul d continue regular exercise and strengthening with the hope that they can avoid additional s urgery. senior care pain medication should be continued and tapered by their primary care provider or pain management. I spoke with her extensively about seeing a neurologist. I feel this is h er best chance to identify the source of her dizziness and have intervention for her dizzine ss. Based on the patient's reaction in response I am somewhat suspicious whether she will u ltimately go or not. Physical therapy will likely help her a little but given her severe di zziness I feel that a neurologist will ultimately be necessary for her to truly be independe nt out of her wheelchair. He may then, it will depend on the neurologist workup and what he /she finds as the source of her dizziness. The patient no longer needs follow-up for this issue. They can contact us should new issue s develop. Thank you for allowing me to care for this patient. I, Corbin Boo PA-C, personally performed the services described in this documentati on, as scribed by CHAU Cruz, in my presence, and it is both accurate and comple te. Corbin Boo PA-C 06/29/18 ELECTRONICALLY SIGNED BY: Corbin Boo PA-C, 06/29/2018 10:58 documented in thi s encounter Plan of Treatment + + +--------+ + + | Name | Type | Priori | Associated Diagnoses | Order Schedule | | | | ty | | | + + +--------+ + + | * [facility] [place] | Outpatient | Routin | Dizziness Balance | Ordered: 06/29/2018 | | Neurology - [place] | Referral | e | problem | | + + +--------+ + + | Physical Therapy - | Outpatient | Routin | S/P lumbar fusion | Ordered: 06/29/2018 | | Ambulatory Referral | Referral | e | Dizziness Balance | | | | | | problem | | + + +--------+ + + documented as of this encounter Visit Diagnoses + + | Diagnosis | + + | S/P lumbar fusion - Primary Arthrodesis status | + + | Dizziness Dizziness and giddiness | + + | Balance problem Other symptoms involving nervous and musculoskeletal systems | + + documented in this encounter
--- OUTSIDE RECORDS SUMMARY | ~2020-04-03 | XMS | Encounter Summary ---
Demographics + + + | Address | [address] | | | [place] [address] | + + + | Home Phone | | + + + | Preferred Language | Unknown | + + + | Marital Status | | + + + | Restorationism Affiliation | 1041 | + + + | Race | Unknown | + + + | Ethnic Group | Unknown | + + + Author + + + | Author | [facility] | | | and [place] | + + + | Organization | [facility] | | | and [place] | + + + | Address | Unknown | + + + | Phone | Unavailable | + + + Support + + + + + | Name | Relationship | Address | Phone | + + + + + | Juanita Espinal | ECON | [address] | | | | | [place] | | | | | [address] | | + + + + + Care Team Providers + +------+ + | Care Personnel Security Assistant Name | Role | Phone | + +------+ + | Hemanth Lima PCP | | | MD | | | + +------+ + Reason for Visit + + + | Reason | Comments | + + + | Medication Refill | | + + + Encounter Details +--------+--------+ + + + | Date | Type | Department | Care Team | Description | +--------+--------+ + + + | 07/02/ | Refill | [facility] [place] | José Miguel Garcia | Medication Refill | | 2016 | | NEUROSURGERY [address] | TAMIKO Schultz [address] | | | | | [address] | [address] | | | | | [place], [place] | [place] | | | | | [address] | [address] | | | | | [phone] | | | +--------+--------+ + + + Social History + + [...] + + documented as of this encounter Functional Status + + + [...] Not on filedocumented as of this encounter Visit Diagnoses Not on filedocumented in this encounter"
--- OUTSIDE RECORDS SUMMARY | ~2020-04-03 | XMS | Encounter Summary ---
Demographics + + + | Address | [address] | | | [place] [address] | + + + | Home Phone | | + + + | Preferred Language | Unknown | + + + | Marital Status | | + + + | Hinduism Affiliation | 1041 | + + + | Race | Unknown | + + + | Ethnic Group | Unknown | + + + Author + + + | Author | [facility] | | | and [place] | + + + | Organization | [facility] | | | and [place] | + + + | Address | Unknown | + + + | Phone | Unavailable | + + + Support + + + + + | Name | Relationship | Address | Phone | + + + + + | Juanita Espinal | ECON | [address] | | | | | [place] | | | | | [address] | | + + + + + Care Team Providers + +------+ + | Care Nascar Racer Name | Role | Phone | + +------+ + | Hemanth Lima PCP | | | MD | | | + +------+ + Reason for Visit + + + | Reason | Comments | + + + | Follow-up | 12 week PO | + + + Encounter Details +--------+---------+ + + + | Date | Type | Department | Care Team | Description | +--------+---------+ + + + | 08/25/ | Office | [facility] | Edin Lynn MD | Status post lumbar | | 2017 | Visit | NEUROSURGERY [address] | [address] | spinal fusion | | | | [address] | [place] [address] | (Primary Dx); | | | | [place] | [phone] | Age-related | | | | [address] | | osteoporosis with | | | | [phone] | | current pathological | | | | | | fracture with | | | | | | delayed healing, | | | | | | subsequent encounter | +--------+---------+ + + + Social History [...] + + + | Blood Pressure | 167/69 | 08/25/2017 7:51 AM | | | | | PDT | | + + + + + | Pulse | 51 | 08/25/2017 7:51 AM | | | | | PDT | | + + + + + | Temperature | - | - | | + + + + + | Respiratory Rate | 16 | 08/25/2017 7:51 AM | | | | | PDT | | + + + + + | Oxygen Saturation | - | - | | + + + + + | Inhaled Oxygen | - | - | | | Concentration | | | | + + + + + | Weight | 68 kg (150 lb) | 08/25/2017 7:51 AM | | | | | PDT | | + + + + + | Height | 170.2 cm (5' 7") | 08/25/2017 7:51 AM | | | | | PDT | | + + + + + | Body Mass Index | 23.49 | 08/25/2017 7:51 AM | | | | | PDT [...] + + documented as of this encounter Progress Notes Edin Lynn MD - 08/25/2017 7:30 AM PDTFormatting of this note might be different from t he original. Edin Lynn MD [address] [facility], [address] [place] [address] NEUROSURGERY FOLLOW-UP CHIEF COMPLAINT: Chief Complaint Patient presents with Follow-up 12 week PO HISTORY OF PRESENT ILLNESS: The patient is a 72 y.o. female that had a L2-3, L3-4, L4-5 La teral Anterior Interbody Fusion; L5-S1 Transforaminal Lumbar Interbody Fusion; Posterior Fus ion @ L2-3, L3-4, L4-5, L5-S1 for back and bilateral leg symptoms for around in May 2017. She returns and overall is doing well. The patient complains of leg weakness and occasional thigh tingling. It is improved. The patient has not been walking as much as directed due to a fall and an ankle fracture. She will likely be out of her boot in 2 weeks. CURRENT MEDICATIONS: Current Outpatient Prescriptions Medication Sig Dispense Refill amiodarone (PACERONE) 200 mg tablet TAKE ONE TABLET BY MOUTH TWICE DAILY 60 tablet 5 apixaban (ELIQUIS) 5 mg tablet TAKE ONE TABLET BY MOUTH TWICE DAILY 60 tablet 5 dilTIAZem (CARTIA XT) 120 mg 24 hr capsule TAKE ONE CAPSULE BY MOUTH ONCE DAILY 30 caps ule 5 metoprolol succinate (TOPROL-XL) 100 mg ER tablet Take 100 mg by mouth nightly. predniSONE (DELTASONE) 5 mg tablet Take 5 mg by mouth Daily. sertraline (ZOLOFT) 100 mg tablet Take 100 mg by mouth nightly. traMADol (ULTRAM) 50 mg tablet Take 2 [...] patient reports that she quit smoking about 9 months ago. Her smoking use included Cig arettes. She has a 10.00 pack-year smoking history. She has never used smokeless tobacco. Sh e reports that she does not drink alcohol or use drugs. REVIEW OF SYSTEMS GENERALLY: No fever, no [...] snoring, no sleep apnea, no sinus problems, no major dental work. NEUROLOGICALLY: Please see the review of systems discussed above in the history of present illness. In addition, the patient has numbness/pain of legs. PSYCHIATRIC: No depression, no sleep disorders, no anxiety, no bipolar disorder, no psycho tic episodes. CARDIOVASCULAR: No heart attacks, no heart [...] no personal h istory of cancer. RHEUMATOLOGIC: + joint arthritis, no rheumatoid arthritis. INTERIM PHYSICAL EXAMINATION: Blood pressure 167/69, pulse 51, resp. rate 16, height 1.702 m (5' 7"), weight 68 kg (150 l b), not currently . Body mass index is 23.49 kg/m. GENERAL: Dorothea Calvo is in no acute distress with unlabored respirations. SPINE: The patient s incisions are healing well without drainage, significant erythema, o r discharge. EXTREMITIES: No lower extremity edema. NEUROLOGICAL EXAMINATION: MENTAL STATUS: The patient is awake, alert, and oriented. She follows simple and complex commands MOTOR EXAM: Motor strength is 4+ hip flexion, 4+ dorsiflexion on the left. This is improve d when compared to the preoperative exam. SENSORY EXAM: The sensory examination is improved when compared to the preoperative exam. RADIOGRAPHIC REVIEW: The patient s x-rays show stable instrumentation and alignment and were reviewed with the patient today. There is subsidence at L2-3 but it is overall stable since her 06/2017 films . ASSESSMENT: Encounter Diagnoses Name Primary? Status post lumbar spinal fusion Yes Age-related osteoporosis with current pathological fracture with delayed healing, subse quent encounter Past Medical History: Diagnosis Date Acute pansinusitis Atrial fibrillation ([facility]) 08-18-2016 Atypical chest pain Bilateral leg pain Contusion of knee with skin surface intact Right Anterior COPD (chronic obstructive pulmonary disease) ([facility]) HOONAH (hard of hearing) Hyperlipoproteinemia type Li-a Impacted cerumen of right ear Low back pain Lumbar foraminal stenosis 08/13/2016 Lumbar herniated disc L1/T2 Left Lumbar neuritis L3-L4, L4-L5, L5/S1 Lumbar spondylosis Lumbar stenosis Moderate major depression, single episode ([facility]) Neoplasm of uncertain behavior of skin PONV (postoperative nausea and vomiting) projectile vomitting waking up after surgery Primary localized osteoarthritis of left hip Rheumatoid arthritis involving multiple sites ([facility]) Sacroiliac pain Spinal stenosis, lumbar Lumbar canal with neurogenic claudication Spondylolisthesis of lumbar region L3/L4, L4/L5 TB (tuberculosis) Thoracic neuritis T1-T2 PLAN: Overall, the patient is doing fairly well. Her falls have slowed down her healing. The pa leigh annmelia can see some improvements but continues to recover from recent surgery. I increased the patient s activities continueing to allow 10 lbs and I would like her to wean her brace. They should continue regular exercise and strengthening with the hope that they can avoid additional surgery. ocean transportation intermediary pain medication should be continued and tapered by their primary care provider or pain management The patient needs to follow-up in 3 months with x-rays for re-evaluation. ELECTRONICALLY SIGNED BY: Edin Lynn MD, 08/25/2017 8:21 ectorJina RN - 08/25/2017 7:30 AM PDTREX Saenz OF SYSTEMS GENERALLY: No fever, no night [...] snoring, no sleep apnea, no sinus problems, no major dental work. NEUROLOGICALLY: Please see the review of systems discussed above in the history of present illness. In addition, the patient has numbness/pain of legs. PSYCHIATRIC: No depression, no sleep disorders, no anxiety, no bipolar disorder, no psycho tic episodes. CARDIOVASCULAR: No heart attacks, no heart [...] no personal h istory of cancer. RHEUMATOLOGIC: + joint arthritis, no rheumatoid arthritis. documented in thi s encounter Plan of Treatment Not on filedocumented as of this encounter Visit Diagnoses + + | Diagnosis | + + | Status post lumbar spinal fusion - Primary Arthrodesis status | + + | Age-related osteoporosis with current pathological fracture with delayed healing, | | subsequent encounter | + + documented in this encounter
--- OUTSIDE RECORDS SUMMARY | ~2020-04-03 | XMS | Encounter Summary ---
Demographics + + + | Address | [address] | | | [place] [address] | + + + | Home Phone | | + + + | Preferred Language | Unknown | + + + | Marital Status | | + + + | Jain Affiliation | 1041 | + + + | Race | Unknown | + + + | Ethnic Group | Unknown | + + + Author + + + | Author | [facility] | | | and [place] | + + + | Organization | [facility] | | | and [place] | + + + | Address | Unknown | + + + | Phone | Unavailable | + + + Support + + + + + | Name | Relationship | Address | Phone | + + + + + | Juanita Espinal | ECON | [address] | | | | | [place] | | | | | [address] | | + + + + + Care Team Providers + +------+ + | Care K 9 Handler/ Deputy Name | Role | Phone | + [...] Description | +--------+--------+ + + + | 01/31/ | Refill | [facility] | Isacc Sears, | Medication Refill | | 2018 | | CARDIOLOGY [address] | [address] | | | | | [place], | [place], | | | | | [place] [address] | [place] [address] | | | | | [phone] | [phone] | | | | | | | | +--------+--------+ + + + [...] + | Comments: On and off for 20 yrs | + + + + +---------+ + | Alcohol Use | Drinks/Week | oz/Week | Comments | + + +---------+ + | No | | | | + + +---------+ + [...]
--- OUTSIDE RECORDS SUMMARY | ~2020-04-03 | XMS | Encounter Summary ---
Demographics + + + | Address | [address] | | | [place] [address] | + + + | Home Phone | | + + + | Preferred Language | Unknown | + + + | Marital Status | | + + + | Yazdanism Affiliation | 1041 | + + + | Race | Unknown | + + + | Ethnic Group | Unknown | + + + Author + + + | Author | [facility] | | | and [place] | + + + | Organization | [facility] | | | and [place] | + + + | Address | Unknown | + + + | Phone | Unavailable | + + + Support + + + + + | Name | Relationship | Address | Phone | + + + + + | Juanita Espinal | ECON | [address] | | | | | [place] | | | | | [address] | | + + + + + Care Team Providers + +------+ + | Care Machine Cloth Measurer Name | Role | Phone | + +------+ + | Hemanth Lima PCP | | | MD | | | + +------+ + Encounter Details +--------+ + + + + | Date | Type | Department | Care Team | Description | +--------+ + + + + | 07/16/ | Abstract | [facility] [place] | Jeffry France | | | 2015 | | NEUROSURGERY [address] | [address] | | | | | [address] | [address] | | | | | [place], [place] | [place] [address] | | | | | [address] | [phone] | | | | | [phone] | | | +--------+ + + + [...]
--- OUTSIDE RECORDS SUMMARY | ~2020-04-03 | XMS | Encounter Summary ---
Demographics + + + | Address | [address] | | | [place] [address] | + + + | Home Phone | | + + + | Preferred Language | Unknown | + + + | Marital Status | | + + + | Faith Affiliation | 1041 | + + + | Race | Unknown | + + + | Ethnic Group | Unknown | + + + Author + + + | Author | [facility] | | | and [place] | + + + | Organization | [facility] | | | and [place] | + + + | Address | Unknown | + + + | Phone | Unavailable | + + + Support + + + + + | Name | Relationship | Address | Phone | + + + + + | Juanita Espinal | ECON | [address] | | | | | [place], [place] | | | | | [address] | | + + + + + Care Team Providers + +------+ + | Care Assisted Living Administrator Name | Role | Phone | + +------+ + | Hemanth Lima PCP | | | MD | | | + +------+ + Encounter Details +--------+ + + + + | Date | Type | Department | Care Team | Description | +--------+ + + + + | 02/04/ | Episode | [facility] [place] | Jeimy Sheehan | | | 2016 | Changes | NEUROSURGERY [address] | Dominick, Payroll Associate | | | | | [address] [facility] [address] | | | | | | [place] | | | | | | [address] | | | | | | [phone] | | | +--------+ + + + [...]
--- OUTSIDE RECORDS SUMMARY | ~2020-04-03 | XMS | Encounter Summary ---
Demographics + + + | Address | [address] | | | [place] [address] | + + + | Home Phone | | + + + | Preferred Language | Unknown | + + + | Marital Status | | + + + | Zoroastrian Affiliation | 1041 | + + + | Race | Unknown | + + + | Ethnic Group | Unknown | + + + Author + + + | Author | [facility] | | | and [place] | + + + | Organization | [facility] | | | and [place] | + + + | Address | Unknown | + + + | Phone | Unavailable | + + + Support + + + + + | Name | Relationship | Address | Phone | + + + + + | Juanita Espinal | ECON | [address] | | | | | [place] | | | | | [address] | | + + + + + Care Team Providers + +------+ + | Care Round Boner Name | Role | Phone | + +------+ + | Hemanth Lima PCP | | | MD | | | + +------+ + Encounter Details +--------+ + + + + | Date | Type | Department | Care Team | Description | +--------+ + + + + | 06/10/ | Orders Only | [facility] [place] | Edin Lynn MD | S/P lumbar fusion | | 2017 | | NEUROSURGERY [address] | [address] | (Primary Dx) | | | | [address] | [place] [address] | | | | | [place] | [phone] | | | | | [address] | | | | | | [phone] | | | +--------+ + + + [...] Not on filedocumented as of this encounter Results XR Lumbar Spine 2 or 3 Vw (11/27/2017 9:43 AM PST) + + | Specimen | + + | | + + + + + | Narrative | Performed At | + + + | EXAM:XR LUMBAR SPINE 2 OR 3 VW CLINICAL HISTORY: S/P lumbar | [facility] | | fusion COMPARISON: May 26, 2017 FINDINGS: Frontal and lateral | | | views. Posterior and interbody fusion changes from L2 through S1. | | | The hardware is intact. No change in position of the interbody | | | graft markers. No change in spinal alignment. Suggestion of | | | developing osseous fusion across the operative levels. Aneurysmal | | | dilatation of the calcified abdominal aorta. IMPRESSION - No | | | radiographic evidence for an interval complication. Dictated and | | | Signed by: Rao Jerry MD Electronically signed: 11/27/2017 | | | 11:01 AM | | + + + + + | Procedure Note | + + | Tomer, Jai Results In - 11/27/2017 11:04 AM PST EXAM:XR LUMBAR SPINE 2 OR 3 VW | | | | CLINICAL HISTORY: S/P lumbar fusion | | | | COMPARISON: May 26, 2017 | | | | FINDINGS: Frontal and lateral views. Posterior and interbody fusion changes | | from L2 through S1. The hardware is intact. No change in position of the | | interbody graft markers. No change in spinal alignment. Suggestion of | | developing osseous fusion across the operative levels. Aneurysmal dilatation of | | the calcified abdominal aorta. | | | | IMPRESSION - | | | | No radiographic evidence for an interval complication. | | | | Dictated and Signed by: Rao Jerry MD | | Electronically signed: 11/27/2017 11:01 AM | + + + +---------+ + + | Performing | Address | City/State/Zipcode | Phone Number | | Organization | | | | + +---------+ + + | [facility] | | | | + +---------+ + + documented in this encounter Visit Diagnoses + + | Diagnosis | + + | S/P lumbar fusion - Primary Arthrodesis status | + + documented in this encounter"
--- OUTSIDE RECORDS SUMMARY | ~2020-04-03 | XMS | Encounter Summary ---
Demographics + + + | Address | [address] | | | [place] [address] | + + + | Home Phone | | + + + | Preferred Language | Unknown | + + + | Marital Status | | + + + | Jew Affiliation | 1041 | + + + | Race | Unknown | + + + | Ethnic Group | Unknown | + + + Author + + + | Author | [facility] | | | and [place] | + + + | Organization | [facility] | | | and [place] | + + + | Address | Unknown | + + + | Phone | Unavailable | + + + Support + + + + + | Name | Relationship | Address | Phone | + + + + + | Juanita Espinal | ECON | [address] | | | | | [place] | | | | | [address] | | + + + + + Care Team Providers + +------+ + | Care Bow Maker Gift Wrapping Name | Role | Phone | + +------+ + | Hemanth Lima PCP | | | MD | | | + +------+ + Reason for Visit + + + | Reason | Comments | + + + | Neurosurgery | Moved Appt Down 30 Mins | | Appointment | | + + + Encounter Details +--------+ + + + + | Date | Type | Department | Care Team | Description | +--------+ + + + + | 04/26/ | Telephone | [facility] [place] | Edin Lynn MD | Neurosurgery | | 2018 | | NEUROSURGERY [address] | [address] | Appointment (Moved | | | | [address] | [place] [address] | Appt Down 30 Mins) | | | | [place] | [phone] | | | | | [address] | | | | | | [phone] | | | +--------+ + + + [...]
--- OUTSIDE RECORDS SUMMARY | ~2020-04-03 | XMS | Encounter Summary ---
Demographics + + + | Address | [address] | | | [place] [address] | + + + | Home Phone | | + + + | Preferred Language | Unknown | + + + | Marital Status | | + + + | Denominational Affiliation | 1041 | + + + | Race | Unknown | + + + | Ethnic Group | Unknown | + + + Author + + + | Author | [facility] | | | and [place] | + + + | Organization | [facility] | | | and [place] | + + + | Address | Unknown | + + + | Phone | Unavailable | + + + Support + + + + + | Name | Relationship | Address | Phone | + + + + + | Juanita Espinal | ECON | [address] | | | | | [place] | | | | | [address] | | + + + + + Care Team Providers + +------+ + | Care Sizing Sprayer Name | Role | Phone | + [...] Description | +--------+--------+ + + + | 01/01/ | Refill | [facility] [place] | Cam Francelas | Medication Refill | | 2018 | | NEUROSURGERY [address] | [address] | | | | | [address] | [address] | | | | | [place], [place] | [place] [address] | | | | | [address] | [phone] | | | | | [phone] | | | +--------+--------+ + + + [...]
--- OUTSIDE RECORDS SUMMARY | ~2020-04-03 | XMS | Clinical Summary ---
Demographics + + + | Address | [address] | | | [place] [address] | + + + | Home Phone | | + + + | Preferred Language | Unknown | + + + | Marital Status | | + + + | Pentecostal Affiliation | 1041 | + + + | Race | Unknown | + + + | Ethnic Group | Unknown | + + + Author + + + | Author | [facility] | | | and [place] | + + + | Organization | [facility] | | | and [place] | + + + | Address | Unknown | + + + | Phone | Unavailable | + + + Support + + + + + | Name | Relationship | Address | Phone | + + + + + | Juanita Espinal | ECON | [address] | | | | | [place] | | | | | [address] | | + + + + + Care Team Providers + +------+ + | Care Surveying Technician Name | Role | Phone | + +------+ + | Hemanth Lima PCP | | | MD | | | + +------+ + Allergies + + + + + + | Active Allergy | Reactions | Severity | Noted | Comments | | | | | Date | | + + + + + + | Adhesive & Tape | Other (See Comments) | Medium | 06/16/20 | Blisters where | | | | | 17 | tape & bandages | + + + + + + | Codeine | Rash | Low | 07/16/20 | | | | | | 16 | | + + + + + + | Nabumetone | Diarrhea | Low | | | + + + + + + | Uncoded | Nausea And Vomiting | Medium | 07/16/20 | Problems related | | Nonscreenable | | | 16 | to anesthetic when | | Allergen | | | | waking up | + + + + + + Medications + + + +---------+------+------+-------+ | Medication | Sig | Dispensed | Refills | Star | End | Statu | | | | | | t | Date | s | | | | | | Date | | | + + + +---------+------+------+-------+ | predniSONE | Take 5 mg by mouth | | 0 | | | Activ | | (DELTASONE) 5 mg | Daily. | | | | | e | | tablet | | | | | | | + + + +---------+------+------+-------+ | sertraline | Take 100 mg by mouth | | 0 | | | Activ | | (ZOLOFT) 100 mg | nightly. | | | | | e | | tablet | | | | | | | + + + +---------+------+------+-------+ | VITAMIN D, | Take 100 Units by | | 0 | | | Activ | | CHOLECALCIFEROL, PO | mouth Daily. | | | | | e | + + + +---------+------+------+-------+ | traMADol (ULTRAM) | Take 2 tablets by | 120 | 1 | 08/1 | | Activ | | 50 mg | mouth every 6 hours | tablet | | 4/20 | | e | | tabletIndications: | as needed for Pain. | | | 17 | | | | S/P lumbar fusion | | | | | | | + + + +---------+------+------+-------+ | apixaban (ELIQUIS) | TAKE ONE TABLET BY | 60 | 5 | 09/2 | | Activ | | 5 mg tablet | MOUTH TWICE DAILY | tablet | | 0/20 | | e | | | | | | 17 | | | + + + +---------+------+------+-------+ | spironolactone | Take 100 mg by mouth | | 0 | | | Activ | | (ALDACTONE) 100 MG | Daily. | | | | | e | | tablet | | | | | | | + + + +---------+------+------+-------+ | furosemide (LASIX) | Take 20 mg by mouth. | | 0 | | | Activ | | 20 mg tablet | Three times weekly. | | | | | e | + + + +---------+------+------+-------+ | metoprolol | Take 1 tablet by | 90 | 3 | 12/0 | | Activ | | succinate | mouth nightly. | tablet | | 5/20 | | e | | (TOPROL-XL) 50 mg 24 | | | | 17 | | | | hr tablet | | | | | | | + + + +---------+------+------+-------+ | CARTIA XT 120 MG | TAKE ONE CAPSULE BY | 30 | 5 | 04/2 | | Activ | | 24 hr capsule | MOUTH ONCE DAILY | capsule | | 4/20 | | e | | | | | | 18 | | | + + + +---------+------+------+-------+ | amiodarone | TAKE 1 TABLET BY | 60 | 0 | 03/1 | | Activ | | (PACERONE) 200 mg | MOUTH TWICE DAILY | tablet | | 8/20 | | e | | tablet | | | | 19 | | | + + + +---------+------+------+-------+ Active Problems + + + | Problem | Noted Date | + + + | S/P lumbar fusion | 06/29/2017 | + + + | Acute metabolic encephalopathy | 05/30/2017 | + + + | Depression, unspecified depression type | 05/30/2017 | + + + | Anxiety state, unspecified | 05/30/2017 | + + + | Delirium due to multiple etiologies | 05/30/2017 | + + + | Atrial fibrillation with RVR | 05/27/2017 | + + + + + | Overview: Echocardiogram 09/05/2016 shows a technically | | difficult with suboptimal views, overall left ventricular | | systolic function is normal with an EF between 65-70%, left | | ventricular wall thickness is normal. Echocardiogram 06/01/2017 | | shows mild left atrial dilatation, normal left ventricular size, | | wall thickness and motion, preserved left ventricular systolic | | function, LVEF is 70%, mild aortic valve insufficiency, mild | | mitral valve regurgitation, mild mitral annular calcification, | | normal right-sided pressure, normal IVC with normal respiratory | | collapse.Patient in Normal Sinus Rhythm for both May and | | July 2017 surgeries (back/foot) | + + + + + | Status post lumbar spinal fusion | 05/27/2017 | + + + | Spondylosis of cervical joint without myelopathy | 10/14/2016 | + + + | Foraminal stenosis of cervical region | 10/14/2016 | + + + | Lumbar foraminal stenosis | 08/13/2016 | + + + | Lumbar radiculopathy | 07/23/2016 | + + + | Spondylolisthesis of lumbar region | 07/23/2016 | + + + | Lumbar facet arthropathy | 07/23/2016 | + + + | Foraminal stenosis of lumbar region | 07/23/2016 | + + + | Other spondylosis, lumbar region | 07/23/2016 | + + + | DDD (degenerative disc disease), lumbar | 07/23/2016 | + + + | Hand weakness | 07/23/2016 | + + + | Hyperreflexia | 07/23/2016 | + + + | Osteoporosis | 07/23/2016 | + + + Immunizations + + + + | Name | Administration Dates | Next Due | + + + + | INFLUENZA 65 Y OR >, | 10/20/2017 | | | TRIVALENT HIGH-DOSE | | | + + + + Family History + + +--------+ + | Medical History | Relation | Name | Comments | + + +--------+ + | No known problems | Brother | | | + + +--------+ + | No known problems | Child | | | + + +--------+ + | No known problems | Daughter | Juanita | | | | | Espinal | | + + +--------+ + | Tuberculosis | Father | | | + + +--------+ + | No known problems | Maternal | | | | | Grandfath | | | | | er | | | + + +--------+ + | Lupus | Maternal | | | | | Grandmoth | | | | | er | | | + + +--------+ + | Alcohol abuse | Mother | | | + + +--------+ + | Cancer | Mother | | | + + +--------+ + | No known problems | Paternal | | | | | Grandfath | | | | | er | | | + + +--------+ + | No known problems | Paternal | | | | | Grandmoth | | | | | er | | | + + +--------+ + | Alcohol abuse | Sister | | 2 sisters | + + +--------+ + | Other (see comment) | Sister | | Pancreatic cancer | + + +--------+ + + +--------+ + + | Relation | Name | Status | Comments | + +--------+ + + | Brother | | Alive | | + +--------+ + + | Brother | | | | + +--------+ + + | Child | | Alive | | + +--------+ + + | Child | | | | + +--------+ + + | Daughter | Juanita | Alive | | | | Espinal | | | + +--------+ + + | Father | | | | | | | (Age | | | | | 26) | | + +--------+ + + | Maternal Grandfather | | | | + +--------+ + + | Maternal Grandmother | | | | | | | (Age | | | | | 83) | | + +--------+ + + | Mother | | | | | | | (Age | | | | | 77) | | + +--------+ + + | Paternal Grandfather | | Other | Not listed | + +--------+ + + | Paternal Grandmother | | Other | Not listed | + +--------+ + + | Sister | | Alive | | + +--------+ + + | Sister | | Alive | | + +--------+ + + | Sister | | | | + +--------+ + + | Sister | | | | + +--------+ + + Social History + + + [...] recent travel history available. | + + Last Filed Vital Signs + + + [...] + | Respiratory Rate | 16 | 10/20/2017 11:28 AM | | | | | PST | | + + + + + [...] | | + + + + + Plan of Treatment + + + + + | Health Maintenance | Due Date | Last Done | Comments | + + + + + | Hepatitis C | | | | | Screening | 5 | | | + + + + + | Vaccine: | | | | | Dtap/Tdap/Td (1 - | 6 | | | | Tdap) | | | | + + + + + | Vaccine: Zoster (1 | | | | | of 2) | 5 | | | + + + + + | Breast Cancer | | | | | Screening | 0 | | | + + + + + | Vaccine: | | | | | Pneumococcal 65+ (1 | 0 | | | | of 2 - PCV13) | | | | + + + + + | Adult Annual | | | | | Wellness Visit | 6 | | | + + + + + | Vaccine: Influenza | | 10/20/2017 | | | (Season Ended) | 0 | | | + + + + + | Colorectal Cancer | | 12/16/2010 | | | Screening | 1 | | | | (Colonoscopy) | | | | + + + + + Implants + +--------+--------+ +--------+--------+--------+ | Implanted | Type | Area | Manufacture | Device | Shelf | Model | | | | | r | | Expira | / | | | | | | Identi | tion | Serial | | | | | | fier | Date | / Lot | + +--------+--------+ +--------+--------+--------+ | Imp Spn Intbdy Xlw | Generi | Anteri | NUVASIVE - | | | [id number] | | [id number] - | c | or: | NVSV | | | 5 / / | | [id number]: Qty: 1 on | | Spine | | | | | | 05/26/2017 by Edin Lynn, | | Lumbar | | | | | | MD at [facility] | | | | | | | | [facility] | | | | | | | + +--------+--------+ +--------+--------+--------+ | Imp Spn Intbdy Xlw | Generi | Anteri | NUVASIVE - | | | [id number] | | [id number] - | c | or: | NVSV | | | 0 / / | | [id number]: Qty: 1 on | | Spine | | | | | | 05/26/2017 by Edin Lynn, | | Lumbar | | | | | | MD at [facility] | | | | | | | | [facility] | | | | | | | + +--------+--------+ +--------+--------+--------+ | Imp Spn Intbdy Xlw [id number] | Generi | N/A: | NUVASIVE - | | | [id number] | | - [id number]: Qty: 1 | c | Spine | NVSV | | | 0 / / | | on 05/26/2017 by Edin Lynn | | Lumbar | | | | | | MD J Luis at [facility] | | | | | | | | [facility] | | | | | | | + +--------+--------+ +--------+--------+--------+ | Yomi Ti Prebent Lordtc 140mm - | Generi | Anteri | NUVASIVE - | | | [id number] | | [id number]: Qty: 2 | c | or: | NVSV | | | 0 / / | | on 05/26/2017 by Edin Lynn | | Spine | | | | | | MD J Luis at [facility] | | Lumbar | | | | | | [facility] | | | | | | | + +--------+--------+ +--------+--------+--------+ | Tlif Oblique [id number] 12deg | Generi | Anteri | NUVASIVE - | | | [id number] | | - [id number]: Qty: 1 | c | or: | NVSV | | | 2 / / | | on 05/26/2017 by Edin Lynn | | Spine | | | | | | MD J Luis at [facility] | | Lumbar | | | | | | [facility] | | | | | | | + +--------+--------+ +--------+--------+--------+ | Putty Stark 10cc Dbm - | Graft | Anteri | MEDTRONIC - | | 02/09/ | [id number] | | [id number]: Qty: 1 | | or: | MEDT | | 2020 | | | on 05/26/2017 by Edin Lynn | | Spine | | | | /[id number] | | MD J Luis at [facility] | | Lumbar | | | | [id number] | | [facility] | | | | | | / | + +--------+--------+ +--------+--------+--------+ | Graft Infuse Bone Kit Xs - | Graft | Anteri | SOFAMOR | | 04/15/ | [id number] | | [id number]: Qty: 2 on | | or: | LEISAEK - DIV | | 2018 | 0 / | | 05/26/2017 by Edin Lynn, | | Spine | MEDTRONIC | | | /[id number] | | at [facility] | | Lumbar | - SFDK | | | [id number] | | [facility] | | | | | | | + +--------+--------+ +--------+--------+--------+ | Putasad Stark 5cc Dbm - | Graft | Anteri | MEDTRONIC - | | 09/15/ | [id number] | | [id number]: Qty: 1 | | or: | MEDT | | 2019 | /[id number] | | on 05/26/2017 by Edin Lynn | | Spine | | | | 0-077 | | MD J Luis at [facility] | | Lumbar | | | | / | | [facility] | | | | | | | + +--------+--------+ +--------+--------+--------+ | Plate Str Ti 2.4mm 6h - | Plate | Left: | JADRIANA RUSHING | | | 449.90 | | [id number]: Qty: 1 on | | Foot | SYNTHES - | | | / | | 07/23/2017 by Jaswant Dolan | | | SYNT | | | | | GURMEET Huizar at [facility] | | | | | | | | [facility] | | | | | | | + +--------+--------+ +--------+--------+--------+ | Screw Set - | Screw | Anteri | NUVASIVE - | | | [id number] | | [id number]: Qty: 10 | | or: | NVSV | | | 0 / / | | on 05/26/2017 by Edin Lynn | | Spine | | | | | | MD J Luis at [facility] | | Lumbar | | | | | | [facility] | | | | | | | + +--------+--------+ +--------+--------+--------+ | Screw Polyax Prcpt 5.5x55mm - | Screw | Anteri | NUVASIVE - | | | [id number] | | [id number]: Qty: 4 | | or: | NVSV | | | 5A / / | | on 05/26/2017 by Edin Lynn | | Spine | | | | | | MD J Luis at [facility] | | Lumbar | | | | | | [facility] | | | | | | | + +--------+--------+ +--------+--------+--------+ | Screw Polyax Prcpt 8.5x50mm - | Screw | Anteri | NUVASIVE - | | | [id number] | | [id number]: Qty: 2 | | or: | NVSV | | | 0A / / | | on 05/26/2017 by Edin Lynn | | Spine | | | | | | MD J Luis at [facility] | | Lumbar | | | | | | [facility] | | | | | | | + +--------+--------+ +--------+--------+--------+ | Screw Polyax Precept 6.5x50 - | Screw | Anteri | NUVASIVE - | | | [id number] | | [id number]: Qty: 2 | | or: | NVSV | | | 0A / / | | on 05/26/2017 by Edin Lynn | | Spine | | | | | | MD J Luis at [facility] | | Lumbar | | | | | | [facility] | | | | | | | + +--------+--------+ +--------+--------+--------+ | Screw Polyax Prcpt 7.5x50mm - | Screw | Anteri | NUVASIVE - | | | [id number] | | [id number]: Qty: 2 | | or: | NVSV | | | 0A / / | | on 05/26/2017 by Edin Lynn | | Spine | | | | | | MD J Luis at [facility] | | Lumbar | | | | | | [facility] | | | | | | | + +--------+--------+ +--------+--------+--------+ | Screw Crtx Slf-Tp Ti 2.4x14mm | Screw | Left: | GARTHBandar RUSHING | | | 401.51 | | - [id number]: Qty: 2 | | Foot | SYNTHES - | | | 4.96 / | | on 07/23/2017 by Magdaleno, | | | SYNT | | | / | | Jaswant Huizar DPM at [facility] | | | | | | | | [facility] | | | | | | | + +--------+--------+ +--------+--------+--------+ | Screw Crtx Slf-Tp Ti 2.4x10mm | Screw | Left: | JJHCS DEPUY | | | 401.51 | | - [id number]: Qty: 2 | | Foot | SYNTHES - | | | 0.96 / | | on 07/23/2017 by Magdaleno, | | | SYNT | | | / | | Jaswant Huizar DPM at [facility] | | | | | | | | [facility] | | | | | | | + +--------+--------+ +--------+--------+--------+ | Screw Crtx Slf-Tp Ti 2.4x11mm | Screw | Left: | JJHCS DEPUY | | | 401.51 | | - [id number]: Qty: 1 | | Foot | SYNTHES - | | | 1.96 / | | on 07/23/2017 by Magdaleno, | | | SYNT | | | / | | Jaswant T, DPM at [facility] | | | | | | | | [facility] | | | | | | | + +--------+--------+ +--------+--------+--------+ + +--------+--------+ +--------+--------+--------+ | Explanted | Type | Area | Manufacture | Device | Shelf | Model | | | | | r | | Expira | / | | | | | | Identi | tion | Serial | | | | | | fier | Date | / Lot | + +--------+--------+ +--------+--------+--------+ | Imp Spn Intbdy Xlw [id number] | Generi | Anteri | NUVASIVE - | | | [id number] | | - [id number]: Qty: 1 | c | or: | NVSV | | | 0 / / | | on 05/26/2017 at [facility] | | Spine | | | | | | [facility] | | Lumbar | | | | | | CENTER | | | | | | | + +--------+--------+ +--------+--------+--------+ Results Not on filefrom Last 3 Months Insurance + +--------+ +--------+ +---------+--------+ | Payer | Benefi | Subscriber | Effect | Phone | Address | Type | | | t Plan | ID | mason | | | | | | / | | Dates | | | | | | Group | | | | | | + +--------+ +--------+ +---------+--------+ | MEDICARE | MEDICA | [id number] | 01/15/20 | [phone] | | Medica | | | RE | | 10-Pre | 5 | | re | | | PART A | | sent | | | | | | AND B | | | | | | + +--------+ +--------+ +---------+--------+ | [employer] | [employer] | [id number] | 07/17/20 | [phone] | | Indemn | | HEALTH | LIFE | | 12-Pre | 4 | | ity | | | AND | | sent | | | | | | HEALTH | | | | | | + +--------+ +--------+ +---------+--------+ + +--------+ +--------+ + + | Guarantor Name | Accoun | Relation to | Date | Phone | Billing Address | | | t Type | Patient | of | | | | | | | | | | + +--------+ +--------+ + + | Dorothea Calvo | Person | Self [birth year] | [address] | | | al/Fam | | 1945 | [phone] | [place] | | | [place]ah | | | 2 (Home) | [phone] | + +--------+ +--------+ + + Advance Directives + + + + + | Type | Date Recorded | Patient | Explanation | | | | Sports Journalist | | + + + + + | Power of | | | | | Axle Bearing Polisher | | | | + + + + + | Advance | 06/29/2018 9:04 | | has j luis rogers/@ 'bandar office | | Directive | AM | | | + + + + + + + + + + | Code Status | Date | Date | Comments | | | Activated | Inactivated | | + + + + + | Full Code | 07/23/2017 | 07/23/2017 | | | | 2:29 PM | 5:19 PM | | + + + + + + + + +---+ | | | | | + + + +---+ | Full Code | 05/26/2017 | 06/06/2017 | | | | 4:27 PM | 4:35 PM | | + + + +---+
--- OUTSIDE RECORDS SUMMARY | ~2020-04-03 | XMS | Encounter Summary ---
Demographics + + + | Address | [address] | | | [place] [address] | + + + | Home Phone | | + + + | Preferred Language | Unknown | + + + | Marital Status | | + + + | Holiness Affiliation | 1041 | + + + | Race | Unknown | + + + | Ethnic Group | Unknown | + + + Author + + + | Author | [facility] | | | and [place] | + + + | Organization | [facility] | | | and [place] | + + + | Address | Unknown | + + + | Phone | Unavailable | + + + Support + + + + + | Name | Relationship | Address | Phone | + + + + + | Juanita Espinal | ECON | [address] | | | | | [place] | | | | | [address] | | + + + + + Care Team Providers + +------+ + | Care Cancer Program Director Name | Role | Phone | + +------+ + | Hemanth Lima PCP | | | MD | | | + +------+ + Reason for Visit + + + | Reason | Comments | + + + | Appointment | | + + + Encounter Details +--------+ + + + + | Date | Type | Department | Care Team | Description | +--------+ + + + + | 08/31/ | Telephone | [facility] | [place], | Appointment | | 2018 | | [facility] [address] | [address] | | | | | [place], | [place], | | | | | [place] [address] | [place] [address] | | | | | [phone] | [phone] | | | | | | | | +--------+ + + + [...]
--- OUTSIDE RECORDS SUMMARY | ~2020-04-03 | XMS | Encounter Summary ---
Demographics + + + | Address | [address] | | | [place] [address] | + + + | Home Phone | | + + + | Preferred Language | Unknown | + + + | Marital Status | | + + + | Mormon Affiliation | 1041 | + + + | Race | Unknown | + + + | Ethnic Group | Unknown | + + + Author + + + | Author | [facility] | | | and [place] | + + + | Organization | [facility] | | | and [place] | + + + | Address | Unknown | + + + | Phone | Unavailable | + + + Support + + + + + | Name | Relationship | Address | Phone | + + + + + | Juanita Espinal | ECON | [address] | | | | | [place] | | | | | [address] | | + + + + + Care Team Providers + +------+ + | Care Mail Service Coordinator Name | Role | Phone | + +------+ + | Hemanth Lima PCP | | | MD | | | + +------+ + Reason for Visit +---------+ + | Reason | Comments | +---------+ + | Therapy | | +---------+ + Encounter Details +--------+ + + + + | Date | Type | Department | Care Team | Description | +--------+ + + + + | 07/21/ | Telephone | [facility] | Edin Lynn MD | Therapy | | 2016 | | NEUROSURGERY [address] | | | | | [address] | [place] [address] | | | | | [place] | [phone] | | | | | [address] | | | | | | [phone] | | | +--------+ + + + [...]
--- OUTSIDE RECORDS SUMMARY | ~2020-04-03 | XMS | Encounter Summary ---
Demographics + + + | Address | [address] | | | [place] [address] | + + + | Home Phone | | + + + | Preferred Language | Unknown | + + + | Marital Status | | + + + | Jainism Affiliation | 1041 | + + + | Race | Unknown | + + + | Ethnic Group | Unknown | + + + Author + + + | Author | [facility] | | | and [place] | + + + | Organization | [facility] | | | and [place] | + + + | Address | Unknown | + + + | Phone | Unavailable | + + + Support + + + + + | Name | Relationship | Address | Phone | + + + + + | Juanita Espinal | ECON | [address] | | | | | [place], [place] | | | | | [address] | | + + + + + Care Team Providers + +------+ + | Care Environmental Field Services Technician Name | Role | Phone | + +------+ + | Hemanth Lima PCP | | | MD | | | + +------+ + Encounter Details +--------+ + + + + | Date | Type | Department | Care Team | Description | +--------+ + + + + | 08/05/ | Orders Only | [facility] | Sirena Cifuentes, | | | 2016 | | CARDIOLOGY [address] | RN | | | | | [place], | | | | | | [place] [address] | | | | | | [phone] | | | +--------+ + + + [...]
--- OUTSIDE RECORDS SUMMARY | ~2020-04-03 | XMS | Encounter Summary ---
Demographics + + + | Address | [address] | | | [place] [address] | + + + | Home Phone | | + + + | Preferred Language | Unknown | + + + | Marital Status | | + + + | Taoism Affiliation | 1041 | + + + | Race | Unknown | + + + | Ethnic Group | Unknown | + + + Author + + + | Author | [facility] | | | and [place] | + + + | Organization | [facility] | | | and [place] | + + + | Address | Unknown | + + + | Phone | Unavailable | + + + Support + + + + + | Name | Relationship | Address | Phone | + + + + + | Juanita Espinal | ECON | [address] | | | | | [place] | | | | | [address] | | + + + + + Care Team Providers + +------+ + | Care Sales Activity Manager Name | Role | Phone | + +------+ + | Hemanth Lima PCP | | | MD | | | + +------+ + Reason for Visit + + + | Reason | Comments | + + + | Pre-op Exam | | + + + Encounter Details +--------+---------+ + + + | Date | Type | Department | Care Team | Description | +--------+---------+ + + + | 05/01/ | Office | [facility] | Cam Francelas | Lumbar radiculopathy | | 2017 | Visit | NEUROSURGERY [address] | [address] | (Primary Dx); | | | | [address] | [address] | Spondylolisthesis of | | | | [place], [place] | [place] [address] | lumbar region; | | | | [address] | [phone] | Lumbar facet | | | | [phone] | | arthropathy; | | | | | | Foraminal stenosis | | | | | | of lumbar region; | | | | | | DDD (degenerative | | | | | | disc disease), | | | | | | lumbar | +--------+---------+ + + + Social History [...] + + + | Blood Pressure | 131/64 | 05/01/2017 11:24 AM | | | | | PDT | | + + + + + | Pulse | 76 | 05/01/2017 11:24 AM | | | | | PDT | | + + + + + | Temperature | - | - | | + + + + + | Respiratory Rate | 20 | 05/01/2017 11:24 AM | | | | | PDT | | + + + + + | Oxygen Saturation | - | - | | + + + + + | Inhaled Oxygen | - | - | | | Concentration | | | | + + + + + | Weight | 62.6 kg (138 lb) | 05/01/2017 11:24 AM | | | | | PDT | | + + + + + | Height | 165.1 cm (5' 5") | 05/01/2017 11:24 AM | | | | | PDT | | + + + + + | Body Mass Index | 22.96 | 05/01/2017 11:24 AM | | | | | PDT | | + + + + + documented in this encounter Progress Notes Nadia Roy RN - 05/01/2017 11:30 AM PDTPatient in office for pre op appointment. Nova ent advised at this time to stop: Arava (14 days prior). Patient verbalized understanding. A ll questions answered at this time. est, Jeffry Tyler PA-C - 05/01/2017 11:30 AM PDT Jeffry France PA-C [address] [facility], [address] [place] [address] FAX: NEUROSURGERY HISTORY AND PHYSICAL EXAMINATION CHIEF COMPLAINT: Chief Complaint Patient presents with Pre-op Exam HISTORY OF PRESENT ILLNESS: The patient is a 72 y.o. female who is previously seen in our office with with the complaint of back and bilateral leg pain symptoms that began Many years ago. Patient subsequently had a cervical MRI and x-rays. She was also sent to physiatry. The patient had a bone density study performed as well. Since we saw her last she also h ad an episode of atrial fibrillation. She is currently in sinus rhythm. The patient has qu it smoking. She quit in November. Since we saw her last she also has had increased pain in her back as well as in her legs. He lumbar brace we gave her some mild improvement of her symptoms The patient had S1 epidural steroid injections and actually did fairly well with those for about 2 days. She had dramatic improvement of her symptoms. Unfortunately, after 2 days ov er symptoms return. Patient's bone density shows osteopenia. The patient was instructed on some smoking cessation. She has been working with this. She has cut down dramatically on her nicotine intake but has not quit completely The patient describes having had low back pain for many years. He has noted gradual and wo rsening problems with low back pain which radiates into her legs. He started mostly on the right side but now his left side as well. She cares for her has fairly severe rheum atoid arthritis. Her abilities to do her usual routines have greatly suffered due to her pa in and her symptoms. The symptoms have been gradually worsening. She rates the pain as severe. The symptoms ar e continuous. She describes the pain as numbing, shooting, crushing and tight band. The patient describes leg symptoms that occur on both sides but worse on the right. The le g symptoms account for 50% of her symptoms. The leg symptoms are constant, and the symptoms travel from the Back to the anterior edwards on the right hand from the back to the posterior calf on the left. The patient also describes the loss of the ability to walk distances with out sitting. The leg pain becomes severe when she is up standing within just a few seconds of being upright. It will relieve fairly quickly when she lays down The patient does not report any change in bowel or bladder function recently. Her symptoms improve with rest and sitting. Her symptoms worsen with standing, walking, bending, twisting and light exertion. She has tried PT, Chiropractic, Steroids and Muscle relaxers. The patient is not currently taking nerve medication. These measures are no longer helping. PAST MEDICAL HISTORY: Past Medical History: Diagnosis Date Acute pansinusitis Atrial fibrillation ([facility]) 08-18-2016 Atypical chest pain Bilateral leg pain Contusion of knee with skin surface intact Right Anterior COPD (chronic obstructive pulmonary disease) ([facility]) Hyperlipoproteinemia type Li-a Impacted cerumen of right ear Low back pain Lumbar foraminal stenosis 08/13/2016 Lumbar herniated disc L1/T2 Left Lumbar neuritis L3-L4, L4-L5, L5/S1 Lumbar spondylosis Lumbar stenosis Moderate major depression, single episode ([facility]) Neoplasm of uncertain behavior of skin Primary localized osteoarthritis of left hip Rheumatoid arthritis involving multiple sites ([facility]) Sacroiliac pain Spinal stenosis, lumbar Lumbar canal with neurogenic claudication Spondylolisthesis of lumbar region L3/L4, L4/L5 TB (tuberculosis) Thoracic neuritis T1-T2 PAST SURGICAL HISTORY: Past Surgical History: Procedure Laterality Date APPENDECTOMY Cataract surgery 2008 Dr. Andrew Maldonado [facility] CURRENT MEDICATIONS: Current Outpatient Prescriptions Medication Sig Dispense Refill leflunomide (ARAVA) 20 mg tablet Take 20 mg by mouth Daily. Magnesium 400 MG CAPS Take by mouth. metoprolol succinate (TOPROL-XL) 100 mg ER tablet Take 100 mg by mouth every morning. predniSONE (DELTASONE) 5 mg tablet Take 5 mg by mouth Daily. sertraline (ZOLOFT) 100 mg tablet Take 100 mg by mouth nightly. VITAMIN D, CHOLECALCIFEROL, PO Take by mouth. No current facility-administered medications for this visit. ALLERGIES: Allergies Allergen Reactions Nabumetone Diarrhea Uncoded Nonscreenable Allergen Nausea And Vomiting Problems related to anesthetic when waking up Codeine Rash SOCIAL HISTORY: The patient reports that she quit smoking about 5 months ago. Her smoking use included Cig arettes. She has a 10.00 pack-year smoking history. She has never used smokeless tobacco. Sh irvin reports that she does not drink alcohol [...] Sister Pancreatic cancer No Known Problems Child REVIEW OF SYSTEMS GENERALLY: No fever, no [...] the patient has numbness/pain of legs, coordination difficulty. PSYCHIATRIC: No depression, no sleep disorders, no [...] istory of cancer. RHEUMATOLOGIC: No joint arthritis, no rheumatoid arthritis. PHYSICAL EXAMINATION: Blood pressure 131/64, pulse 76, resp. rate 20, height 1.651 m (5' 5"), weight 62.6 kg (138 lb). Body mass index is 22.96 kg/m. GENERAL: Dorothea Calvo is in no acute distress with unlabored respirations. The nova ent does appear uncomfortable throughout the exam today. HEENT: Head: Normocephalic/atraumatic with no areas of recent trauma. Eyes: Normal sclerae without icterus. Ears: No drainage or tenderness. Nasopharnyx: Clear without drainage. Oropharnyx: Clear without erythema. NECK (ANTERIOR): Supple and without palpable masses. CHEST: Clear to ausculation without crackles or wheeze. HEART: Regular rate and rhythm without murmurs. ABDOMEN: Soft, non-tender, non-distended, and without palpable masses. The patient is not o bese. SPINE: There is no tenderness of there cervical or thoracic spine. The lumbar spine shows there is no tenderness in the midline of the L2, L3, L4, L5, S1 leve ls. To palpation, there is significant bilateral myofascial tenderness. There is no significant pain to provacative testing of the SI joint. There is no major deformity noted. EXTREMITIES: No cyanosis, clubbing, or edema. Distal pulses are palpable. NEUROLOGICAL EXAM: MENTAL STATUS: The patient is awake, alert, and oriented. She follows simple and complex commands. Her speech is fluent, she comprehends speech well, and she repeats well. She has no apparent deficits with short or long-term memory. CRANIAL NERVES: Fundoscopic Exam: The optic disc is sharp. Normal vascular pattern is visualized II: Acuity is intact. Langston are full to confrontation. III, IV, : The pupils are reactive. Extraocular movements are intact. No ptosis is note d. V: Facial sensation is intact and symmetric. VII: Facial movements are symmetric. VIII: Hearing is intact bilaterally. IX, X: The uvula and palate move appropriately. XI: Shrug is equal bilaterally. XII: Tongue protrusion is midline. MOTOR EXAM: (5 IS NORMAL) * Indicates pain limited MUSCLE/ MOVEMENT: RIGHT LEFT Deltoids 5 5 Biceps 5 5 Triceps 5 5 Wrist Flexion 5 5 Wrist Extension 5 5 Median Intrinsics 5 5 Ulnar Intrinsics 5 5 Outplacement Consultant Strength 4+ 4+ Hip Flexion 5 5 Hip Extension 5 5 Knee Flexion 5 5 Knee Extension 5 5 Dorsiflexion 5 5 Extensor Hallicus Longus 5 5 Plantarflexion 5 5 SENSORY EXAM: Sensory exam shows no diminished sensation to light touch or pain throughout the upper and lower extremities. REFLEXES: (2 OR 2+ IS NORMAL) REFLEX: RIGHT LEFT BICEPS 3 3 BRACHIORADIALIS 3 3 TRICEPS 3 3 PATELLAR 2 3+ ACHILLES 3+ 3+ LARES'S ABSENT ABSENT PLANTAR DOWNGOING DOWNGOING GAIT: Gait is antalgic PERIPHERAL NERVE/MISC: Phalen is negative. Straight leg raise is negative bilaterally. Bert's test of the hips is negative bilaterally. TEST AND RADIOGRAPHIC REVIEW: The patient's imaging was reviewed in detail with the patient today during the visit. The patient cervical MRI shows degenerative changes which are most marked at C4-C7. His changes are noted at C5-6 and C6-7. She does have central stenosis at these areas but it is not se princess and there is a are normal cord signal changes noted. She has foraminal stenosis which are worse at C5-6 and C6-7. X-rays of her cervical spine show instability at C34 and C4-5 but no instability at C5-6 or C6-7 The MRI from 2016 shows severe degenerative changes from L2-S1. She has foraminal narrow ing which is noted at every level but worse at L4-5 on the right and L5-S1 on the left chest spondylolisthesis noted at L3-4 and L4-5 Lumbar x-rays show spondylolisthesis at L3-4 and L4-5 with no instability on flexion extens ion views. ASSESSMENT: NEUROSURGICAL DIAGNOSES: Encounter Diagnoses Name Primary? Lumbar radiculopathy Yes Spondylolisthesis of lumbar region Lumbar facet arthropathy Foraminal stenosis of lumbar region DDD (degenerative disc disease), lumbar GENERAL DIAGNOSES: Past Medical History: Diagnosis Date Acute pansinusitis Atrial fibrillation ([facility]) 08-18-2016 Atypical chest pain Bilateral leg pain Contusion of knee with skin surface intact Right Anterior COPD (chronic obstructive pulmonary disease) ([facility]) Hyperlipoproteinemia type Li-a Impacted cerumen of right ear Low back pain Lumbar foraminal stenosis 08/13/2016 Lumbar herniated disc L1/T2 Left Lumbar neuritis L3-L4, L4-L5, L5/S1 Lumbar spondylosis Lumbar stenosis Moderate major depression, single episode (HCC) Neoplasm of uncertain behavior of skin Primary localized osteoarthritis of left hip Rheumatoid arthritis involving multiple sites (HCC) Sacroiliac pain Spinal stenosis, lumbar Lumbar canal with neurogenic claudication Spondylolisthesis of lumbar region L3/L4, L4/L5 TB (tuberculosis) Thoracic neuritis T1-T2 PLAN: Dorotheaadrienne Calvo presented today, and it was a pleasure seeing this patient and assessin g her neurologic problems. Today we discussed lumbar fusion in the form of L2-S1 combination anterior and posterior ap proach. The patient presented today with her daughter and her granddaughter. All their que stions were answered today. The patient states that she is quite allergic to the adhesive on tape with the exception of paper tape. She gets hives and severe skin eruptions. The patient is on chronic steroids for her RA. She will most likely need stress steroids p ostoperatively We discussed the risks, alternatives, and benefits to surgical intervention with Ms. Calvo in clinic. These risks included but were not limited to , stroke, heart attack, numbn ess, weakness, paralysis, failure of fusion, failure of hardware, subsidence, adjacent segme nt degeneration, cerebrospinal fluid leak, bleeding, infection, injury to surrounding tissue s and organs, injury from positioning, injury to the nerves, difficulty with breathing, diff iculty with swallowing, difficulty with voice change, and need for additional surgery. Surgical options were discussed and the technique to be employed was described in detail to her. All her questions were answered. We discussed that the goal of the surgery is to prevent progression of her disease, but it is not considered a cure. We also discussed that although some patients may obtain 100% sym ptom relief, it is realistic to anticipate that some symptoms will continue postoperatively despite a successful surgery. We also discussed that there is no guarantee that surgery will provide improvement in her c ondition, and indeed may even worsen the symptoms. We also discussed that in the course of the procedure the operative plan may be altered to include more, less, or different levels d epending upon findings in order to provide her with the best possible outcome. I am prescribing a brace before surgery to improve her stability now to support her weak mu scles and to reduce pain by restricting mobility. For multiple (more than 1 level) fusions, I am also prescribing a bone growth stimulator po stoperatively. This is to improve the probability and rate of fusion. ELECTRONICALLY SIGNED BY: Jeffry France PA-C, 05/01/2017 12:02 documented in this encounter Plan of Treatment Not on filedocumented as of this encounter Visit Diagnoses + + | Diagnosis | + + | Lumbar radiculopathy - Primary Thoracic or lumbosacral neuritis or radiculitis, | | unspecified | + + | Spondylolisthesis of lumbar region Acquired spondylolisthesis | + + | Lumbar facet arthropathy Lumbosacral spondylosis without myelopathy | + + | Foraminal stenosis of lumbar region Spinal stenosis, lumbar region, without | | neurogenic claudication | + + | DDD (degenerative disc disease), lumbar Degeneration of lumbar or lumbosacral | | intervertebral disc | + + documented in this encounter
--- OUTSIDE RECORDS SUMMARY | ~2020-04-03 | XMS | Encounter Summary ---
Demographics + + + | Address | [address] | | | [place] [address] | + + + | Home Phone | | + + + | Preferred Language | Unknown | + + + | Marital Status | | + + + | Taoism Affiliation | 1041 | + + + | Race | Unknown | + + + | Ethnic Group | Unknown | + + + Author + + + | Author | [facility] | | | and [place] | + + + | Organization | [facility] | | | and [place] | + + + | Address | Unknown | + + + | Phone | Unavailable | + + + Support + + + + + | Name | Relationship | Address | Phone | + + + + + | Juanita Espinal | ECON | [address] | | | | | [place], [place] | | | | | [address] | | + + + + + Care Team Providers + +------+ + | Care Salesperson Parts Name | Role | Phone | + +------+ + | Hemanth Lima | PCP | | | MD | | | + +------+ + Encounter Details +--------+ + + + + | Date | Type | Department | Care Team | Description | +--------+ + + + + | 05/22/ | Episode | [facility] [place] | Fabrizio, | | | 2017 | Changes | NEUROSURGERY [address] | [address] | | | | | [address] | [employer] | | | | | [place], [place] | | | | | | [address] | | | | | | [phone] | | | +--------+ + + + [...]
--- OUTSIDE RECORDS SUMMARY | ~2020-04-03 | XMS | Encounter Summary ---
Demographics + + + | Address | [address] | | | [place] [address] | + + + | Home Phone | | + + + | Preferred Language | Unknown | + + + | Marital Status | | + + + | Hoahaoism Affiliation | 1041 | + + + | Race | Unknown | + + + | Ethnic Group | Unknown | + + + Author + + + | Author | [facility] | | | and [place] | + + + | Organization | [facility] | | | and [place] | + + + | Address | Unknown | + + + | Phone | Unavailable | + + + Support + + + + + | Name | Relationship | Address | Phone | + + + + + | Juanita Espinal | ECON | [address] | | | | | [place] | | | | | [address] | | + + + + + Care Team Providers + +------+ + | Care Pie Baker Name | Role | Phone | + +------+ + | Hemanth Lima PCP | | | MD | | | + +------+ + Reason for Visit +--------+ + | Reason | Comments | +--------+ + | Other | | +--------+ + Encounter Details +--------+ + + + + | Date | Type | Department | Care Team | Description | +--------+ + + + + | 12/02/ | Telephone | [facility] [place] | Jeffry France | Other | | 2017 | | NEUROSURGERY [address] | [address] | | | | | [address] | [address] | | | | | [place], [place] | [place] [address] | | | | | [address] | [phone] | | | | | [phone] | | | +--------+ + + + [...]
--- OUTSIDE RECORDS SUMMARY | ~2020-04-03 | XMS | Encounter Summary ---
Demographics + + + | Address | [address] | | | [place] [address] | + + + | Home Phone | | + + + | Preferred Language | Unknown | + + + | Marital Status | | + + + | Jainism Affiliation | 1041 | + + + | Race | Unknown | + + + | Ethnic Group | Unknown | + + + Author + + + | Author | [facility] | | | and [place] | + + + | Organization | [facility] | | | and [place] | + + + | Address | Unknown | + + + | Phone | Unavailable | + + + Support + + + + + | Name | Relationship | Address | Phone | + + + + + | Juanita Espinal | ECON | [address] | | | | | [place] | | | | | [address] | | + + + + + Care Team Providers + +------+ + | Care Director Payment Name | Role | Phone | + +------+ + | Hemanth Lima PCP | | | MD | | | + +------+ + Encounter Details +--------+ + + + + | Date | Type | Department | Care Team | Description | +--------+ + + + + | 08/13/ | Hospital | [facility] | Jeffry France | Hand weakness; | | 2016 | Encounter | MED CTR XRAY [address] | [address] | Hyperreflexia | | | | [place] | [address] | | | | | [place] [address] | [place] [address] | | | | | [phone] | [phone] | | | | | | | [...] + + documented as of this encounter Medications at Time of Discharge [...] + +--------+ + + + | XR CERVICAL SPINE 4 | Routin | 08/13/2016 | Hand weakness | Results for this | | OR 5 VWS | e | 2:12 PM | Hyperreflexia | procedure are in the | | | | PDT | | results section. | + +--------+ + + + documented in this encounter Results XR Cervical Spine 4 or 5 Vws (08/13/2016 2:12 PM PDT) + + | Specimen | + + | | + + + + + | Narrative | Performed At | + + + | EXAM: XR CERVICAL SPINE 4 OR 5 VWS HISTORY: Neck pain | [facility] | | TECHNIQUE: AP, lateral, odontoid views of the cervical spine | [facility] | | COMPARISON: Cervical spine MRI 08/07/2016 FINDINGS: Moderate | [facility] | | multilevel cervical degeneration most pronounced at C4-5 through C6-7. | - IMAGING | | There is minimal (~2 mm) anterolisthesis at C4-5 which is similar on | | | flexion and extension views. There is minimal (~2 mm | | | anterolisthesis at C3-4 on the flexion view which resolves on the | | | extension view. Alignment is otherwise normal. No fractures are | | | evident. Paraspinous soft tissues are unremarkable. IMPRESSION - | | | Multilevel cervical degeneration. There appears to be minimal | | | subluxation at the C3-4 level on flexion. CRITICAL VALUE: No | | | Dictated and Signed by: Jalen Unger MD Electronically signed: | | | 08/13/2016 2:21 PM | | + + + + + | Procedure Note | + + | Tomer, Rad Results In - 08/13/2016 2:24 PM PDT EXAM: XR CERVICAL SPINE 4 OR 5 VWS | | | | HISTORY: Neck pain | | | | TECHNIQUE: AP, lateral, odontoid views of the cervical spine | | | | COMPARISON: Cervical spine MRI 08/07/2016 | | | | FINDINGS: | | Moderate multilevel cervical degeneration most pronounced at C4-5 through C6-7. | | There is minimal (~2 mm) anterolisthesis at C4-5 which is similar on flexion | | and extension views. | | There is minimal (~2 mm anterolisthesis at C3-4 on the flexion view which | | resolves on the extension view. | | Alignment is otherwise normal. | | No fractures are evident. | | Paraspinous soft tissues are unremarkable. | | | | IMPRESSION - | | Multilevel cervical degeneration. There appears to be minimal subluxation at the | | C3-4 level on flexion. | | | | CRITICAL VALUE: No | | | | Dictated and Signed by: Jalen Unger MD | | Electronically signed: 08/13/2016 2:21 PM | + + + + + + + | Performing | Address | City/State/Zipcode | Phone Number | | Organization | | | | + + + + + | [facility] [address] | [address] | [place] | [phone] | | [facility] | | [address] | | | - IMAGING | | | | + + + + + documented in this encounter Visit Diagnoses + + | Diagnosis | + + | Hand weakness Muscle weakness (generalized) | + + | Hyperreflexia Abnormal reflex | + + documented in this encounter"
--- OUTSIDE RECORDS SUMMARY | ~2020-04-03 | XMS | Encounter Summary ---
Demographics + + + | Address | [address] | | | [place] [address] | + + + | Home Phone | | + + + | Preferred Language | Unknown | + + + | Marital Status | | + + + | Moravian Affiliation | 1041 | + + + | Race | Unknown | + + + | Ethnic Group | Unknown | + + + Author + + + | Author | [facility] | | | and [place] | + + + | Organization | [facility] | | | and [place] | + + + | Address | Unknown | + + + | Phone | Unavailable | + + + Support + + + + + | Name | Relationship | Address | Phone | + + + + + | Juanita Espinal | ECON | [address] | | | | | [place] | | | | | [address] | | + + + + + Care Team Providers + +------+ + | Care Library Serials Assistant Name | Role | Phone | [...] + | 08/31/ | Telephone | [facility] | [place], | Appointment | | 2018 | | [facility] [address] | [address] | | | | | [place], | [place], | | | | | [place] [address] | [place] [address] | | | | | [phone] | [phone] | | | | | | | [...]
--- OUTSIDE RECORDS SUMMARY | ~2020-04-03 | XMS | Encounter Summary ---
Demographics + + + | Address | [address] | | | [place] [address] | + + + | Home Phone | | + + + | Preferred Language | Unknown | + + + | Marital Status | | + + + | Buddhist Affiliation | 1041 | + + + | Race | Unknown | + + + | Ethnic Group | Unknown | + + + Author + + + | Author | [facility] | | | and [place] | + + + | Organization | [facility] | | | and [place] | + + + | Address | Unknown | + + + | Phone | Unavailable | + + + Support + + + + + | Name | Relationship | Address | Phone | + + + + + | Juanita Espinal | ECON | [address] | | | | | [place] | | | | | [address] | | + + + + + Care Team Providers + +------+ + | Care Custom Motorcycle Painter Name | Role | Phone | + [...] [address] | | | | | [place], [place] | [place] [address] | | | | | [address] | [phone] | | | | | [phone] | | | +--------+--------+ + + + [...]
--- OUTSIDE RECORDS SUMMARY | ~2020-04-03 | XMS | Encounter Summary ---
Demographics + + + | Address | [address] | | | [place] [address] | + + + | Home Phone | | + + + | Preferred Language | Unknown | + + + | Marital Status | | + + + | Uatsdin Affiliation | 1041 | + + + | Race | Unknown | + + + | Ethnic Group | Unknown | + + + Author + + + | Author | [facility] | | | and [place] | + + + | Organization | [facility] | | | and [place] | + + + | Address | Unknown | + + + | Phone | Unavailable | + + + Support + + + + + | Name | Relationship | Address | Phone | + + + + + | Juanita Espinal | ECON | [address] | | | | | [place], [place] | | | | | [address] | | + + + + + Care Team Providers + +------+ + | Care Criminal Intelligence Analyst Name | Role | Phone | + +------+ + | Hemanth Lima PCP | | | MD | | | + +------+ + Encounter Details +--------+ + + + + | Date | Type | Department | Care Team | Description | +--------+ + + + + | 10/15/ | Abstract | [facility] | Isacc Sears, | | | 2016 | | CARDIOLOGY [address] | MD [address] | | | | | [place], | [place], | | | | | [place] [address] | [place] [address] | | | | | [phone] | [phone] | | | | | | | [...] | + +--------+ + + + | EXTERNAL LAB: ALT | Routin | 09/06/2017 | | Results for this | | | e | | | procedure are in the | | | | | | results section. | + +--------+ + + + | EXTERNAL LAB: AST | Routin | 09/06/2017 | | Results for this | | | e | | | procedure are in the | | | | | | results section. | + +--------+ + + + | EXTERNAL LAB: BUN | Routin | 09/01/2017 | | Results for this | | | e | | | procedure are in the | | | | | | results section. | + +--------+ + + + | EXTERNAL LAB: | Routin | 09/01/2017 | | Results for this | | GLUCOSE | e | | | procedure are in the | | | | | | results section. | + +--------+ + + + | EXTERNAL LAB: | Routin | 09/01/2017 | | Results for this | | ALKALINE PHOSPHATASE | e | | | procedure are in the | | | | | | results section. | + +--------+ + + + | EXTERNAL LAB: | Routin | 09/01/2017 | | Results for this | | BILIRUBIN, TOTAL | e | | | procedure are in the | | | | | | results section. | + +--------+ + + + | EXTERNAL LAB: | Routin | 09/01/2017 | | Results for this | | ALBUMIN | e | | | procedure are in the | | | | | | results section. | + +--------+ + + + | EXTERNAL LAB: | Routin | 09/01/2017 | | Results for this | | PROTEIN, TOTAL | e | | | procedure are in the | | | | | | results section. | + +--------+ + + + | EXTERNAL LAB: | Routin | 09/01/2017 | | Results for this | | MAGNESIUM | e | | | procedure are in the | | | | | | results section. | + +--------+ + + + | EXTERNAL LAB: | Routin | 09/01/2017 | | Results for this | | CALCIUM | e | | | procedure are in the | | | | | | results section. | + +--------+ + + + | EXTERNAL LAB: CARBON | Routin | 09/01/2017 | | Results for this | | DIOXIDE | e | | | procedure are in the | | | | | | results section. | + +--------+ + + + | EXTERNAL LAB: | Routin | 09/01/2017 | | Results for this | | CHLORIDE | e | | | procedure are in the | | | | | | results section. | + +--------+ + + + | EXTERNAL LAB: | Routin | 09/01/2017 | | Results for this | | POTASSIUM | e | | | procedure are in the | | | | | | results section. | + +--------+ + + + | EXTERNAL LAB: SODIUM | Routin | 09/01/2017 | | Results for this | | | e | | | procedure are in the | | | | | | results section. | + +--------+ + + + | EXTERNAL LAB: CBC | Routin | 09/01/2017 | | Results for this | | | e | | | procedure are in the | | | | | | results section. | + +--------+ + + + | EXTERNAL LAB: EGFR | Routin | 09/01/2017 | | Results for this | | | e | | | procedure are in the | | | | | | results section. | + +--------+ + + + | EXTERNAL LAB: | Routin | 09/01/2017 | | Results for this | | CREATININE | e | | | procedure are in the | | | | | | results section. | + +--------+ + + + | CBC WITH | Routin | 09/01/2017 | | Results for this | | DIFFERENTIAL | e | | | procedure are in the | | | | | | results section. | + +--------+ + + + | COMPREHENSIVE | Routin | 09/01/2017 | | Results for this | | METABOLIC PANEL | e | | | procedure are in the | | | | | | results section. | + +--------+ + + + documented in this encounter Results External Lab: ALT (09/06/2017) + +---------+ + + + | Component | Value | Ref Range | Performed | Pathologist | | | | | At | Signature | + +---------+ + + + | ALT, | 128 (A) | 7 - 52 | EXTERNAL | | | External | | | LAB | | + +---------+ + + + + + | Resulting Agency Comment | + + | [facility] | + + + +---------+ + + | Performing | Address | City/State/Zipcode | Phone Number | | Organization | | | | + +---------+ + + | EXTERNAL LAB | | | | + +---------+ + + External Lab: AST (09/06/2017) + +--------+ + + + | Component | Value | Ref Range | Performed | Pathologist | | | | | At | Signature | + +--------+ + + + | AST, | 45 (A) | 13 - 39 | EXTERNAL | | | External | | | LAB | | + +--------+ + + + + + | Resulting Agency Comment | + + | [facility] | + + + +---------+ + + | Performing | Address | City/State/Zipcode | Phone Number | | Organization | | | | + +---------+ + + | EXTERNAL LAB | | | | + +---------+ + + CBC with Differential (09/01/2017) + +-------+ + + + | Component | Value | Ref Range | Performed | Pathologist | | | | | At | Signature | + +-------+ + + + | MCH | 28.0 | 26.0 - 33.0 pg | | | + +-------+ + + + | MCHC | 33.0 | 30.0 - 36.0 % | | | + +-------+ + + + | % Basophils | 0.8 | 1.0 % | | | + +-------+ + + + + + | Specimen | + + | Blood | + + Comprehensive Metabolic Panel (09/01/2017) + +-------+ + + + | Component | Value | Ref Range | Performed | Pathologist | | | | | At | Signature | + +-------+ + + + | Anion Gap | 20 | mmol/L | | | + +-------+ + + + | Bun/Creatin | 33.8 | | | | | ine | | | | | + +-------+ + + + | Globulin | 4.0 | | | | + +-------+ + + + | Albumin/Elvira | 0.8 | | | | | bulin Ratio | | | | | + +-------+ + + + + + | Specimen | + + | Blood | + + External Lab: LARISSA (09/01/2017) + +-------+ + + + | Component | Value | Ref Range | Performed | Pathologist | | | | | At | Signature | + +-------+ + + + | BUN, | 23 | | EXTERNAL | | | External | | | LAB | | + +-------+ + + + + + | Resulting Agency Comment | + + | [facility] | + + + +---------+ + + | Performing | Address | City/State/Zipcode | Phone Number | | Organization | | | | + +---------+ + + | EXTERNAL LAB | | | | + +---------+ + + External Lab: Glucose (09/01/2017) + +-------+ + + + | Component | Value | Ref Range | Performed | Pathologist | | | | | At | Signature | + +-------+ + + + | Glucose, | 128 | | EXTERNAL | | | External | | | LAB | | + +-------+ + + + + + | Resulting Agency Comment | + + | [facility] | + + + +---------+ + + | Performing | Address | City/State/Zipcode | Phone Number | | Organization | | | | + +---------+ + + | EXTERNAL LAB | | | | + +---------+ + + External Lab: Alkaline Phosphatase (09/01/2017) + +-------+ + + + | Component | Value | Ref Range | Performed | Pathologist | | | | | At | Signature | + +-------+ + + + | ALP, | 101 | | EXTERNAL | | | External | | | LAB | | + +-------+ + + + + + | Resulting Agency Comment | + + | [facility] | + + + +---------+ + + | Performing | Address | City/State/Zipcode | Phone Number | | Organization | | | | + +---------+ + + | EXTERNAL LAB | | | | + +---------+ + + External Lab: Bilirubin, Total (09/01/2017) + +-------+ + + + | Component | Value | Ref Range | Performed | Pathologist | | | | | At | Signature | + +-------+ + + + | Bilirubin, | 1.1 | | EXTERNAL | | | Total, | | | LAB | | | External | | | | | + +-------+ + + + + + | Resulting Agency Comment | + + | [facility] | + + + +---------+ + + | Performing | Address | City/State/Zipcode | Phone Number | | Organization | | | | + +---------+ + + | EXTERNAL LAB | | | | + +---------+ + + External Lab: Albumin (09/01/2017) + +-------+ + + + | Component | Value | Ref Range | Performed | Pathologist | | | | | At | Signature | + +-------+ + + + | Albumin, | 3.2 | | EXTERNAL | | | External | | | LAB | | + +-------+ + + + + + | Resulting Agency Comment | + + | [facility] | + + + +---------+ + + | Performing | Address | City/State/Zipcode | Phone Number | | Organization | | | | + +---------+ + + | EXTERNAL LAB | | | | + +---------+ + + External Lab: Protein, Total (09/01/2017) + +-------+ + + + | Component | Value | Ref Range | Performed | Pathologist | | | | | At | Signature | + +-------+ + + + | Protein, | 7.2 | | EXTERNAL | | | Total, | | | LAB | | | External | | | | | + +-------+ + + + + + | Resulting Agency Comment | + + | [facility] | + + + +---------+ + + | Performing | Address | City/State/Zipcode | Phone Number | | Organization | | | | + +---------+ + + | EXTERNAL LAB | | | | + +---------+ + + External Lab: Magnesium (09/01/2017) + +-------+ + + + | Component | Value | Ref Range | Performed | Pathologist | | | | | At | Signature | + +-------+ + + + | Magnesium, | 1.8 | | EXTERNAL | | | External | | | LAB | | + +-------+ + + + + + | Resulting Agency Comment | + + | [facility] | + + + +---------+ + + | Performing | Address | City/State/Zipcode | Phone Number | | Organization | | | | + +---------+ + + | EXTERNAL LAB | | | | + +---------+ + + External Lab: Calcium (09/01/2017) + +-------+ + + + | Component | Value | Ref Range | Performed | Pathologist | | | | | At | Signature | + +-------+ + + + | Calcium, | 9.1 | | EXTERNAL | | | External | | | LAB | | + +-------+ + + + + + | Resulting Agency Comment | + + | [facility] | + + + +---------+ + + | Performing | Address | City/State/Zipcode | Phone Number | | Organization | | | | + +---------+ + + | EXTERNAL LAB | | | | + +---------+ + + External Lab: Carbon Dioxide (09/01/2017) + +-------+ + + + | Component | Value | Ref Range | Performed | Pathologist | | | | | At | Signature | + +-------+ + + + | Carbon | 2 | | EXTERNAL | | | Dioxide, | | | LAB | | | External | | | | | + +-------+ + + + + + | Resulting Agency Comment | + + | [facility] | + + + +---------+ + + | Performing | Address | City/State/Zipcode | Phone Number | | Organization | | | | + +---------+ + + | EXTERNAL LAB | | | | + +---------+ + + External Lab: Chloride (09/01/2017) + +-------+ + + + | Component | Value | Ref Range | Performed | Pathologist | | | | | At | Signature | + +-------+ + + + | Chloride, | 96 | | EXTERNAL | | | External | | | LAB | | + +-------+ + + + + + | Resulting Agency Comment | + + | [facility] | + + + +---------+ + + | Performing | Address | City/State/Zipcode | Phone Number | | Organization | | | | + +---------+ + + | EXTERNAL LAB | | | | + +---------+ + + External Lab: Potassium (09/01/2017) + +-------+ + + + | Component | Value | Ref Range | Performed | Pathologist | | | | | At | Signature | + +-------+ + + + | Potassium, | 4.2 | | EXTERNAL | | | External | | | LAB | | + +-------+ + + + + + | Resulting Agency Comment | + + | [facility] | + + + +---------+ + + | Performing | Address | City/State/Zipcode | Phone Number | | Organization | | | | + +---------+ + + | EXTERNAL LAB | | | | + +---------+ + + External Lab: Sodium (09/01/2017) + +-------+ + + + | Component | Value | Ref Range | Performed | Pathologist | | | | | At | Signature | + +-------+ + + + | Sodium, | 132 | | EXTERNAL | | | External | | | LAB | | + +-------+ + + + + + | Resulting Agency Comment | + + | [facility] | + + + +---------+ + + | Performing | Address | City/State/Zipcode | Phone Number | | Organization | | | | + +---------+ + + | EXTERNAL LAB | | | | + +---------+ + + External Lab: CBC (09/01/2017) + +-------+ + + + | Component | Value | Ref Range | Performed | Pathologist | | | | | At | Signature | + +-------+ + + + | WBC, | 18.1 | | EXTERNAL | | | External | | | LAB | | + +-------+ + + + | HGB, | 11.6 | | EXTERNAL | | | External | | | LAB | | + +-------+ + + + | HCT, | 35.4 | | EXTERNAL | | | External | | | LAB | | + +-------+ + + + | PLT, | 384 | | EXTERNAL | | | External | | | LAB | | + +-------+ + + + | Neutrophils | 83.8 | | EXTERNAL | | | %, | | | LAB | | | External | | | | | + +-------+ + + + | Lymphocytes | 7.6 | | EXTERNAL | | | %, | | | LAB | | | External | | | | | + +-------+ + + + | Monocytes | 7.6 | | EXTERNAL | | | %, External | | | LAB | | + +-------+ + + + | Eosinophils | 0.2 | | EXTERNAL | | | %, | | | LAB | | | External | | | | | + +-------+ + + + | RBC, | 4.15 | | EXTERNAL | | | External | | | LAB | | + +-------+ + + + | MCV, | 85 | | EXTERNAL | | | External | | | LAB | | + +-------+ + + + | RDW, | 16.3 | | EXTERNAL | | | External | | | LAB | | + +-------+ + + + + + | Agus Agency Comment | + + | [facility] | + + + +---------+ + + | Performing | Address | City/State/Zipcode | Phone Number | | Organization | | | | + +---------+ + + | EXTERNAL LAB | | | | + +---------+ + + External Lab: eGFR (09/01/2017) + +-------+ + + + | Component | Value | Ref Range | Performed | Pathologist | | | | | At | Signature | + +-------+ + + + | eGFR, | 85 | | EXTERNAL | | | External | | | LAB | | + +-------+ + + + + + | Specimen | + + | Blood | + + + + | Resulting Agency Comment | + + | [facility] | + + + +---------+ + + | Performing | Address | City/State/Zipcode | Phone Number | | Organization | | | | + +---------+ + + | EXTERNAL LAB | | | | + +---------+ + + External Lab: Creatinine (09/01/2017) + +-------+ + + + | Component | Value | Ref Range | Performed | Pathologist | | | | | At | Signature | + +-------+ + + + | Creatinine, | 0.68 | | EXTERNAL | | | External | | | LAB | | + +-------+ + + + + + | Specimen | + + | Blood | + + + + | Resulting Agency Comment | + + | [facility] | + + + +---------+ + + | Performing | Address | City/State/Zipcode | Phone Number | | Organization | | | | + +---------+ + + | EXTERNAL LAB | | | | + +---------+ + + documented in this encounter Visit Diagnoses Not on filedocumented in this encounter"
--- OUTSIDE RECORDS SUMMARY | ~2020-04-03 | XMS | Encounter Summary ---
Demographics + + + | Address | [address] | | | [place] [address] | + + + | Home Phone | | + + + | Preferred Language | Unknown | + + + | Marital Status | | + + + | Amish Affiliation | 1041 | + + + | Race | Unknown | + + + | Ethnic Group | Unknown | + + + Author + + + | Author | [facility] | | | and [place] | + + + | Organization | [facility] | | | and [place] | + + + | Address | Unknown | + + + | Phone | Unavailable | + + + Support + + + + + | Name | Relationship | Address | Phone | + + + + + | Juanita Espinal | ECON | [address] | | | | | [place], [place] | | | | | [address] | | + + + + + Care Team Providers + +------+ + | Care Commercial Front Load Driver Name | Role | Phone | + +------+ + | Hemanth Lima | PCP | | | MD | | | + +------+ + Encounter Details +--------+ + + + + | Date | Type | Department | Care Team | Description | +--------+ + + + + | 06/24/ | Imaging | [facility] | Provider, | | | 2017 | Exam | [facility] | [address] | | | | | IMAGING [address] | [address] | | | | | [address] [place] | [place] [address] | | | | | [place] [address] | | | | | | [phone] | | | +--------+ + + + [...] + +--------+ + + + | XR LUMBAR SPINE 2 OR | Routin | 06/23/2017 | | Results for this | | 3 VW | e | 3:15 PM | | procedure are in the | | | | PDT | | results section. | + +--------+ + + + documented in this encounter Results XR Lumbar Spine 2 or 3 Vw (06/23/2017 3:15 PM PDT) + + | Specimen | + + | | + + + + + | Narrative | Performed At | + + + | External films for comparison only - no result from [facility]. | [facility] | + + + + +---------+ + + | Performing | Address | City/State/Zipcode | Phone Number | | Organization | | | | + +---------+ + + | [facility] | | | | + +---------+ + + documented in this encounter Visit Diagnoses Not on filedocumented in this encounter"
--- OUTSIDE RECORDS SUMMARY | ~2020-04-03 | XMS | Encounter Summary ---
Demographics + + + | Address | [address] | | | [place] [address] | + + + | Home Phone | | + + + | Preferred Language | Unknown | + + + | Marital Status | | + + + | Mandaen Affiliation | 1041 | + + + | Race | Unknown | + + + | Ethnic Group | Unknown | + + + Author + + + | Author | [facility] | | | and [place] | + + + | Organization | [facility] | | | and [place] | + + + | Address | Unknown | + + + | Phone | Unavailable | + + + Support + + + + + | Name | Relationship | Address | Phone | + + + + + | Juanita Espinal | ECON | [address] | | | | | [place] | | | | | [address] | | + + + + + Care Team Providers + +------+ + | Care Medical Van Driver Name | Role | Phone | + +------+ + | Hemanth Lima PCP | | | MD | | | + +------+ + Reason for Visit + + + | Reason | Comments | + + + | Back Pain | low back radiating into bilateral legs | + + + Evaluate & Treat (Routine) +--------+ + + + + + | Status | Reason | Specialty | Diagnoses / | Referred By | Referred To | | | | | Procedures | Contact | Contact | +--------+ + + + + + | Closed | Specialty | Physical | Diagnoses | [place], | Charleen, | | | Services | Medicine and | Lumbar | Jeffry | Piotr Huizar MD | | | Required | Rehabilitatio | radiculopath | TAMIKO Tyler | [address] | | | | n | y | [address] | [facility] | | | | | Spondylolist | [address] | [place], [place] | | | | | hesis of | [place], [place] | [address] Phone: | | | | | lumbar | [phone] | [phone] | | | | | region | Phone: | Fax: | | | | | Lumbar facet | [phone] | [phone] | | | | | arthropathy | Fax: | | | | | | Foraminal | [phone] | | | | | | stenosis of | | | | | | | lumbar | | | | | | | region | | | | | | | Other | | | | | | | spondylosis, | | | | | | | lumbar | | | | | | | region DDD | | | | | | | (degenerativ | | | | | | | e disc | | | | | | | disease), | | | | | | | lumbar | | | +--------+ + + + + + Encounter Details +--------+---------+ + + + | Date | Type | Department | Care Team | Description | +--------+---------+ + + + | 08/13/ | Office | [facility] | Carolyn, | Lumbar radiculopathy | | 2016 | Visit | PHYSIATRY [address] | [address] | (Primary Dx); | | | | [address] | [address] | Spondylolisthesis of | | | | [place], [place] | [place] [address] | lumbar region; DDD | | | | [address] | [phone] | (degenerative disc | | | | [phone] | | disease), lumbar; | | | | | | Lumbar foraminal | | | | | | stenosis | +--------+---------+ + + + Social History [...] + + + | Blood Pressure | 144/73 | 08/13/2016 12:48 PM | | | | | PDT | | + + + + + | Pulse | 75 | 08/13/2016 12:48 PM | | | | | PDT [...] Weight | 62.6 kg (138 lb) | 08/13/2016 12:48 PM | | | | | PDT | | + + + + + | Height | 165.1 cm (5' 5") | 08/13/2016 12:48 PM | | | | | PDT | | + + + + + | Body Mass Index | 22.96 | 08/13/2016 12:48 PM | | | | | PDT | | + + + + + documented in this encounter Patient Instructions Patient Instructions Rachelle Leon PA-C - 08/13/2016 1:19 PM PDT1) Epidural injecti on with Dr. Dorman Degenerative Disc Disease (DDD): Degenerative Disc Disease is a term used to describe normal wear and tear of the spine joaquin t occurs with age. The discs between the vertebras (bones) are made of fluid and cartilage that allows you to flex, bend, and twist, they also absorbs shock. Throughout the years, th barbara discs can become flattened and the space between your vertebras become closer together. This can cause disc herniation, spinal stenosis, and arthritis, along with other complicati ons. Foraminal Stenosis/Radicular Pain: Foraminal stenosis is a narrowing of the spinal foramen, the hole through which passes a s willam nerve as it exits the spine. It is usually a form of degenerative spine disease which occurs slowly over time with wear and tear of the spinal column. Arthritic changes of the s pine, a herniated discs, soft tissue swelling and bony growth can all impinge on the formal foramen and compress the nerve. Because the narrowing (stenosis) of the foramen pinches a nerve, the primary symptoms relat ed to this disorder is directly related to that nerve which is affected. This obviously vari es depending on which foramina are involved. The pinched nerve can lead to basically two cl asses of symptoms. Symptoms include pain in the distribution of that nerve as well as numbne ss, tingling and or weakness can occur. Steroids are a very strong anti-inflammatory, this helps reduce pain by reducing swelling. Complications of steroids are bleeding, infection, and an increase of blood sugars if you are diabetic. detention risk can lead to osteoporosis which is why we limited the number of injections to 3 times per year. With an epidural injection, the nerve root that comes out of the spine and travels down your leg is targeted. The procedure is about 20 minutes long . You will lie on your back while x-rays are taken. Once the region is marked, it is numbe d and then injected with steroids. Follow-up at the hospital thirty minutes before your scheduled procedure to allow for time to check in. You may eat and drink as usual on the day of the procedure. If you are scheduled for an epidural injection do not take any blood thinning medications f or at least 5-7 days prior to your procedure unless you have been instructed by another phys ician not to discontinue blood thinning medications. If you are having a procedure other than an epidural injection (i.e. facet injection, media l branch block, SI joint injection or other joint injection) it is not absolutely necessary to discontinue blood thinning medications but doing so will decrease the risk of bruising or bleeding. If you have had a prior stroke, DVT or PE or if you are taking blood thinning medication be cause you have atrial fibrillation, a prosthetic cardiac valve replacement or heart stenting do not stop taking your blood thinning medications unless you have permission from your car diologist or primary care provider. All other medications should be taken as usual on the day of the procedure. Common blood thinning medications include: Aspirin (a baby aspirin is o.k.) Ibuprofen (Advil or Motrin) Naproxen (Aleve) Nabumetone (Relafen) Clopidogrel (Plavix) Dipyridamole/ASA (Aggrenox) Warfarin (Coumadin) Dabigatran (Pradaxa) Rivaroxaban (Xarelto) There are many others. If you have questions about your medications and whether or not you should stop any medications please contact our office. If you are having an epidural injection or if you take any medication for relaxation/sedati on on the day of the procedure you must provide a hazardous materials driver to take you home. For all procedur es it is recommended that someone else drive you home. documented in this encounter Progress Notes Rachelle Leon PA-C - 08/13/2016 12:42 PM PDTFormatting of this note might be differe nt from the original. CHIEF COMPLAINT: Chief Complaint Patient presents with Back Pain low back radiating into bilateral legs HISTORY OF PRESENT ILLNESS: The patient is a 71 y.o. female being seen today for complaint s of back pain with radiation into the bilateral lower extremities that began over three yea rs ago but has progressively worsened. She reports in the last 6 months her symptoms have s everely worsened to the point where she has no quality of life. She describes the pain as a crushing, numbing, sharp and tight band feeling. She rates the pain as severe. Her symptoms worsen with standing and walking. Her symptoms improve with s itting on her love seat with her legs elevated. The patient describes leg symptoms that occur on both sides but worse on the right. The l eg symptoms account for 50% of her symptoms. The leg symptoms are constant, and the sympto ms travel from the back to the anterior edwards and lower leg on the right hand from the back t o the posterior calf on the left. The patient does describe numbness of the legs. She does report weakness of the right leg . She does not have bowel and bladder dysfunction. She does not have saddle anesthesia. She has tried PT, Chiropractic, Steroids and Muscle relaxers. The patient is not currentl y taking nerve medication. These measures are no longer helping. Patient's medications, allergies, past medical, surgical, social and family histories were reviewed and updated as appropriate. PAST MEDICAL HISTORY: Past Medical History Diagnosis Date TB (tuberculosis) Lumbar stenosis Low back pain Bilateral leg pain Acute pansinusitis Atypical chest pain Impacted cerumen of right ear COPD (chronic obstructive pulmonary disease) (HCC) Contusion of knee with skin surface intact Right Anterior Lumbar herniated disc L1/T2 Left Hyperlipoproteinemia type Li-a Spondylolisthesis of lumbar region L3/L4, L4/L5 Moderate major depression, single episode (HCC) Primary localized osteoarthritis of left hip Rheumatoid arthritis involving multiple sites ([facility]) Sacroiliac pain Thoracic neuritis T1-T2 Lumbar neuritis L3-L4, L4-L5, L5/S1 Lumbar spondylosis Neoplasm of uncertain behavior of skin Spinal stenosis, lumbar Lumbar canal with neurogenic claudication Lumbar foraminal stenosis 08/13/2016 PAST SURGICAL HISTORY: Past Surgical History Procedure Laterality Date [facility]ste[facility] [address] [facility] Cataract surgery [address] Dr. Andrew Maldonado Appendectomy CURRENT MEDICATIONS: Current Outpatient Prescriptions Medication Sig Dispense Refill leflunomide (ARAVA) 20 mg tablet Take 20 mg by mouth Daily. predniSONE (DELTASONE) 5 mg tablet Take 5 [...] SOCIAL HISTORY: The patient reports that she has been smoking Cigarettes. She has a 10 pack-year smoking history. She has never used smokeless tobacco. She reports that she does not drink alcohol o r use illicit drugs. FAMILY HISTORY: Family History Problem Relation Age of Onset Tuberculosis Father 26 Cancer Mother 77 Alcohol abuse Mother Alcohol abuse Sister 2 sisters No Known Problems Brother Other (see comment) Sister Pancreatic cancer No Known Problems Child No Known Problems Paternal Grandfather No Known Problems Paternal Grandmother No Known Problems Maternal Grandfather Lupus Maternal Grandmother REVIEW OF SYSTEMS: GENERALLY: No fever, chills, no night sweats, no weight gain, + weight loss, no anemia, n o fatigue. EYES: + eye problems, no impaired sight, no eye glasses/contacts, no eye injury, no double vision, no transient blindness. EARS, NOSE, THROAT and MOUTH: No change in sense taste/smell, + hearing difficulty, no rin ging in ears, no drainage from ears, no ear injury, no dizziness, no voice change, no diffic ulty swallowing, no snoring, no sleep apnea/CPAP, + sinus trouble, no dental work. NEUROMUSCULAR: No numbness/pain of arms, + numbness/pain of legs, no awake with numbness/p ain, no weakness, no muscle aching, no coordination difficulty, + change in walk, no head in jury, no neck injury, no back injury, no pain in neck, + pain in back, no stroke, no faintin g spells, no loss of consciousness, no tremor/shaking, no seizures, no headaches, + migraine s, no memory loss, no speech difficulty, no confusion, no numbness of face. PSYCHIATRIC: + depression, no difficulty sleeping, no anxiety, no bipolar disorder. CARDIOVASCULAR/PULMONARY: No heart attack, no heart murmur, + fluttering heart, no shortne ss of breath, no cough, no Tuberculosis, no chest pain, no swelling ankles, no bloody coughi ng, no asthma, no COPD/emphysema. GASTROINTESTINAL: No bowel disease, no nausea/vomiting, no rectal bleeding/hemorroids, no constipation, no fecal/stool incontinence, no liver/gallbladder disease, no abdominal pain. KIDNEY DISEASE: No frequent urination, no painful/difficult with urination, no urinary inco ntinence, no bladder problems, no impotence, no irregular period, no vaginal discharge. ENDOCRINE: No diabetes, no thyroid disease, no osteoporosis/osteopenia, no drainage from br easts. INTEGUMENTARY/SKIN: No lump in breasts, no skin disease or skin changes, no rash/itch. HEMATOLOGIC: No enlarged lymph nodes, no ease or unusual bleeding, no cancer. RHEUMATOLOGIC: + joint pain/arthritis, + Rheumatoid Arthritis PHYSICAL EXAMINATION: Filed Vitals: 08/13/16 1248 BP: 144/73 Pulse: 75 PainSc: 8 PainLoc: Back Body mass index is 22.96 kg/(m^2). GENERAL: The patient is well developed and well nourished. She does appear uncomfortable w hen seated. HEENT: HEAD/FACE: EYES: EARS: NASOPHARNYX: OROPHARNYX: Normocephalic and atraumatic. There are no areas of recent trauma. Normal sclerae without icterus. No drainage or tenderness. Clear without drainage. Clear without erythema. SKIN Limited skin exam shows no significant rashes or lesions. There are not scars in the lumbar region. CHEST: The patient is in no acute respiratory distress with unlabored respirations. HEART: There is not lower extremity edema. ABDOMEN: The patient is not overweight. NEUROLOGIC: The patient is awake, alert, and oriented to time, place, person. She follows simple and complex commands. Her speech is fluent. She comprehends speech well. She has no apparent deficits with short or long term care pharmacist memory. She has appropriate fund of knowledge Cranial nerves 2-12 appear grossly intact. Sensory exam does show diminished sensation to light touch in the lower extremities. REFLEX: RIGHT LEFT PATELLAR 3+ 3+ ACHILLES 2+ 2+ MUSCULOSKELETAL There is no major palpable deformity of the spine. Straight leg raise and slump-sit are positive bilaterally. Bert's maneuver and impingem ent testing were negative for any groin pain. There was no tenderness to palpation over th e greater trochanters or sacral sulci. The patient localized the majority of the pain to th e L5/S1 region. Lumbar facet loading was positive. Strength testing showed 5/5 strength th roughout the lower extremities with weakness to the right dorsiflexion 4-/5. The patient wa s able to heel and toe walk without difficulty. There was no redness, effusion, warmth or jovanni int line tenderness in the knees or ankles. RADIOGRAPHIC REVIEW: The patient's imaging was reviewed in detail with the patient today during the visit. The MRI from 2016 shows severe degenerative changes from L2-S1. She has foraminal narrowing wh ich is noted at every level but worse at L4-5 on the right and L5-S1 on the left chest spond ylolisthesis noted at L3-4 and L4-5 Lumbar x-rays show spondylolisthesis at L3-4 and L4-5 with no instability on flexion extens ion views. Her DEXA scan shows normal range of the lumbar spine, osteopenia of the femur. ASSESSMENT: 1. Lumbar radiculopathy 2. Spondylolisthesis of lumbar region 3. DDD (degenerative disc disease), lumbar 4. Lumbar foraminal stenosis PLAN: 1. The patient has had significant conservative care including medications (NSAIDS and abigail cotics), PT (multiple sessions over the years) and campground caretaker. Unfortunately she cont inues to have significant discomfort. It appears to me that the pain is primarily coming fr om the foraminal stenosis. I did feel that she would be a good candidate for interventional procedures and I offered a right L5/S1 and left S1 TFESI. 2.Medications have been reviewed at today's visit with no changes made at this time. She d oesn't like taking medications, they seem to not work. 3. She is following up with Dr. Lynn next week to go over her cervical MRI, DEXA scan and ho w she does with the epidural injection. 4. We discussed if the injections work we can do them every 4 months, however she most lik inga needs surgery. ELECTRONICALLY SIGNED BY: Rachelle Leon PA-C, 08/13/2016 CC: Clarence documented in t his encounter Plan of Treatment Not on filedocumented as of this encounter Procedures + +--------+ + + + | Procedure Name | Priori | Date/Time | Associated Diagnosis | Comments | | | ty | | | | + +--------+ + + + | IMAGING REPORT - | | 08/07/2016 | | Results for this | | EXTERNAL SCAN | | 12:00 AM | | procedure are in the [...] Bilateral S1 Transforaminal Epidural Steroid Injection | [facility] | | Diagnosis: Lumbosacral radiculopathy ICD-10 Code M54.16 | [facility] | | Dorothea Calvo presents to the fluoroscopy suite for [facility] | | fluoroscopically-guided bilateral S1 transforaminal epidural [...] | + + + + + | [address] | [address] | [place] | [phone] | | [facility] | | [address] | | | - IMAGING | | | | + + + + + IMAGING REPORT - EXTERNAL SCAN (08/07/2016 12:00 AM PDT) + + + | Narrative | Performed At | + + + | Ordered by an | | | unspecified provider. | | + + + documented in this encounter [...]
--- OUTSIDE RECORDS SUMMARY | ~2020-04-03 | XMS | Encounter Summary ---
Demographics + + + | Address | [address] | | | [place] [address] | + + + | Home Phone | | + + + | Preferred Language | Unknown | + + + | Marital Status | | + + + | Baptism Affiliation | 1041 | + + + | Race | Unknown | + + + | Ethnic Group | Unknown | + + + Author + + + | Author | [facility] | | | and [place] | + + + | Organization | [facility] | | | and [place] | + + + | Address | Unknown | + + + | Phone | Unavailable | + + + Support + + + + + | Name | Relationship | Address | Phone | + + + + + | Juanita Espinal | ECON | [address] | | | | | [place] | | | | | [address] | | + + + + + Care Team Providers + +------+ + | Care Hardwood Floor Sander Name | Role | Phone | + +------+ + | Hemanth Lima PCP | | | MD | | | + +------+ + Reason for Visit + + + | Reason | Comments | + + + | Surgery Appointment | clarification | + + + Encounter Details +--------+ + + + + | Date | Type | Department | Care Team | Description | +--------+ + + + + | 01/30/ | Telephone | [facility] | Edin Lynn MD | Surgery Appointment | | 2017 | | NEUROSURGERY [address] | [address] | (clarification ) | | | | [address] | [place] [address] | | | | | [place] | [phone] | | | | | [address] | | | | | | [phone] | | | +--------+ + + + [...]
--- OUTSIDE RECORDS SUMMARY | ~2020-04-03 | XMS | Encounter Summary ---
Demographics + + + | Address | [address] | | | [place] [address] | + + + | Home Phone | | + + + | Preferred Language | Unknown | + + + | Marital Status | | + + + | Anabaptist Affiliation | 1041 | + + + | Race | Unknown | + + + | Ethnic Group | Unknown | + + + Author + + + | Author | [facility] | | | and [place] | + + + | Organization | [facility] | | | and [place] | + + + | Address | Unknown | + + + | Phone | Unavailable | + + + Support + + + + + | Name | Relationship | Address | Phone | + + + + + | Juanita Espinal | ECON | [address] | | | | | [place] | | | | | [address] | | + + + + + Care Team Providers + +------+ + | Care Home Sales Consultant Name | Role | Phone | + +------+ + | Hemanth Lima PCP | | | MD | | | + +------+ + Encounter Details +--------+ + + + + | Date | Type | Department | Care Team | Description | +--------+ + + + + | 06/29/ | Hospital | [facility] | Edin Lynn MD | Status post lumbar | | 2018 | Encounter | MED CTR XRAY [address] | spinal fusion | | | | [address] | [place] [address] | | | | | [place] [address] | [phone] | | | | | [phone] | | | +--------+ + + + [...] + + + +---------+ + + | apixaban (ELIQUIS) | TAKE ONE TABLET BY | 60 | 5 | 08/05/20 | | | 5 mg tablet | MOUTH TWICE DAILY | tablet | | 17 | | + + + +---------+ + + | CARTIA XT 120 MG | TAKE ONE CAPSULE BY | 30 | 5 | 03/09/20 | | | 24 hr capsule | MOUTH ONCE DAILY | capsule | | 18 | | + + + +---------+ + + | furosemide (LASIX) | Take 20 mg by mouth. | | 0 | | | | 20 mg tablet | Three times weekly. | | | | | + + + +---------+ + + | metoprolol | Take 1 tablet by | 90 | 3 | 10/20/20 | | | succinate | mouth nightly. | tablet | | 17 | | | (TOPROL-XL) 50 mg 24 | | | | | | | hr tablet | [...] + + + +---------+ + + | spironolactone | Take 100 mg by mouth | | 0 | | | | (ALDACTONE) 100 MG | Daily. [...] amiodarone | TAKE ONE TABLET BY | 180 | 3 | 02/23/20 | | | (PACERONE) 200 mg | MOUTH TWICE DAILY | tablet | | 18 | 9 | | tablet | | | | [...] LUMBAR SPINE 2 OR | Routin | 06/29/2018 | Status post lumbar | Results for this | | 3 VW | e | 9:18 AM | spinal fusion | procedure are in the | | | | PDT | | results section. | + +--------+ + + + documented in this encounter Results XR Lumbar Spine 2 or 3 Vw (06/29/2018 9:18 AM PDT) + + | Specimen | + + | | + + + + + | Narrative | Performed At | + + + | CLINICAL INFORMATION: post lumbar fusion. COMPARISON: | [facility] | | 11/27/2017. FINDINGS: AP and lateral views of the lumbosacral | | | spine. Posterior pedicle screw and hanh fusion changes at L2-S1 | | | with stable positioning of the interbody graft markers. Stable | | | subsidence at L3 superior endplate. Interval increased sclerosis | | | consistent with progression of bony fusion. No evidence of hardware | | | complication. Stable lumbar alignment. Normal height of the | | | vertebral bodies. IMPRESSION - No radiographic evidence of | | | interval complication. Dictated and Signed by: Bert Farley | | | Electronically signed: 06/29/2018 11:24 AM | | + + + + + | Procedure Note | + + | Jai Jeff Results In - 06/29/2018 11:27 AM PDT | | CLINICAL INFORMATION: post lumbar fusion. | | | | COMPARISON: 11/27/2017. | | | | FINDINGS: | | AP and lateral views of the lumbosacral spine. | | | | Posterior pedicle screw and hanh fusion changes at L2-S1 with stable positioning | | of the interbody graft markers. Stable subsidence at L3 superior endplate. | | Interval increased sclerosis consistent with progression of bony fusion. No | | evidence of hardware complication. | | | | Stable lumbar alignment. Normal height of the vertebral bodies. | | | | IMPRESSION - No radiographic evidence of interval complication. | | | | Dictated and Signed by: Bert Farley MD | | Electronically signed: 06/29/2018 11:24 AM | + + + +---------+ + + | Performing | Address | City[facility] | Phone Number | | Organization | | | | + +---------+ + + | [facility] | | | | + +---------+ + + documented in this encounter Visit Diagnoses + + | Diagnosis | + + | Status post lumbar spinal fusion Arthrodesis status | + + documented in this encounter"
--- OUTSIDE RECORDS SUMMARY | ~2020-04-03 | XMS | Encounter Summary ---
Demographics + + + | Address | [address] | | | [place] [address] | + + + | Home Phone | | + + + | Preferred Language | Unknown | + + + | Marital Status | | + + + | Gnosticism Affiliation | 1041 | + + + | Race | Unknown | + + + | Ethnic Group | Unknown | + + + Author + + + | Author | [facility] | | | and [place] | + + + | Organization | [facility] | | | and [place] | + + + | Address | Unknown | + + + | Phone | Unavailable | + + + Support + + + + + | Name | Relationship | Address | Phone | + + + + + | Juanita Espinal | ECON | [address] | | | | | [place] | | | | | [address] | | + + + + + Care Team Providers + +------+ + | Care Pump Runner Name | Role | Phone | + +------+ + | Hemanth Lima PCP | | | MD | | | + +------+ + Encounter Details +--------+ + + + + | Date | Type | Department | Care Team | Description | +--------+ + + + + | 07/03/ | Orders Only | [facility] | Jeffry [place] | Lumbar stenosis | | 2016 | | NEUROSURGERY [address] | [address] | (Primary Dx) | | | | [address] | [address] | | | | | [place], [place] | [place] [address] | | | | | [address] | [phone] | | | | | [phone] | | | +--------+ + + + + Social History + +-------+ +--------+------+ | Tobacco Use | Types | Packs/Day | Years | Date | | | | | Used | | + +-------+ +--------+------+ | Never Assessed | | | | | + +-------+ +--------+------+ + + + | Sex Assigned at [...] of this encounter Plan of Treatment + +---------+--------+ + + | Name | Type | Priori | Associated Diagnoses | Order Schedule | | | | ty | | | + +---------+--------+ + + | XR Lumbar Spine 4 + | Imaging | Routin | Lumbar stenosis | Expected: 07/13/2016 | | Vw | | e | | (Approximate), | | | | | | Expires: 07/02/2017 | + +---------+--------+ + + documented as of this encounter Visit Diagnoses + + | Diagnosis | + + | Lumbar stenosis - Primary Spinal stenosis, lumbar region, without neurogenic | | claudication | + + documented in this encounter"
--- OUTSIDE RECORDS SUMMARY | ~2020-04-03 | XMS | Encounter Summary ---
Demographics + + + | Address | [address] | | | [place] [address] | + + + | Home Phone | | + + + | Preferred Language | Unknown | + + + | Marital Status | | + + + | Mormonism Affiliation | 1041 | + + + | Race | Unknown | + + + | Ethnic Group | Unknown | + + + Author + + + | Author | [facility] | | | and [place] | + + + | Organization | [facility] | | | and [place] | + + + | Address | Unknown | + + + | Phone | Unavailable | + + + Support + + + + + | Name | Relationship | Address | Phone | + + + + + | Juanita Espinal | ECON | [address] | | | | | [place] | | | | | [address] | | + + + + + Care Team Providers + +------+ + | Care Camp Director Name | Role | Phone | + +------+ + | Hemanth Lima PCP | | | MD | | | + +------+ + Encounter Details +--------+ + + + + | Date | Type | Department | Care Team | Description | +--------+ + + + + | 05/01/ | Hospital | [facility] | Edin Lynn MD | Lumbar | | 2017 | Encounter | MED CTR XRAY [address] | [address] | radiculopathy; | | | | [place] | [facility] [place] [address] | Spondylolisthesis of | | | | [place] [address] | [phone] | lumbar region; | | | | [phone] | | Lumbar facet | | | | | Prince Lewis MD | arthropathy; | | | | | [address] | Foraminal stenosis | | | | | [place], [place] | of lumbar region; | | | | | [address] | Other spondylosis, | | | | | | lumbar region; DDD | | | | | | (degenerative disc | | | | | | disease), lumbar; | | | | | | Hand weakness; | | | | | | Hyperreflexia; | | | | | | Osteoporosis; Lumbar | | | | | | foraminal stenosis; | | | | | | Spondylosis of | | | | | | cervical joint | | | | | | without myelopathy; | | | | | | Foraminal stenosis | | | | | | of cervical region | +--------+ + + + + Social [...] 7 | + + + +---------+--------+ + | Magnesium 400 MG | Take 1 capsule by | | 0 | | | | CAPS | mouth Three times a | | | | 7 | | | week. | | | | | + + + +---------+--------+ + | metoprolol | Take 100 mg by mouth | | 0 | | | | succinate | nightly. | | | | 7 | | (TOPROL-XL) 100 mg | | | | | | | ER tablet | | | | | | + + + +---------+--------+ + documented as of this encounter Plan of Treatment Not on filedocumented as of this encounter Procedures + +--------+ + + + | Procedure Name | Priori | Date/Time | Associated Diagnosis | Comments | | | ty | | | | + +--------+ + + + | XR CHEST PA AND | Routin | 05/01/2017 | Lumbar | Results for this | | LATERAL | e | 1:38 PM | radiculopathy | procedure are in the | | | | PDT | Spondylolisthesis of | results section. | | | | | lumbar region | | | | | | Lumbar facet | | | | | | arthropathy | | | | | | Foraminal stenosis | | | | | | of lumbar region | | | | | | Other spondylosis, | | | | | | lumbar region DDD | | | | | | (degenerative disc | | | | | | disease), lumbar | | | | | | Hand weakness | | | | | | Hyperreflexia | | | | | | Osteoporosis Lumbar | | | | | | foraminal stenosis | | | | | | Spondylosis of | | | | | | cervical joint | | | | | | without myelopathy | | | | | | Foraminal stenosis | | | | | | of cervical region | | + +--------+ + + + documented in this encounter Results XR Chest PA and Lateral (05/01/2017 1:38 PM PDT) + + | Specimen | + + | | + + + + + | Narrative | Performed At | + + + | PA AND LATERAL CHEST 05/01/2017 1:37 PM CLINICAL HISTORY: | [facility] | | preoperative clearance COMPARISON: None available FINDINGS: | [facility] | | There is calcification of the thoracic aorta and likely the subclavian [facility] | | arteries as well. The cardiomediastinal silhouette and pulmonary | - IMAGING | | vasculature are otherwise unremarkable. The lungs appear somewhat | | | hyperinflated but are otherwise clear, without pneumothorax or | | | pleural effusion. Generalized osteopenia is suggested. | | | Degenerative changes of the shoulders are noted. An ovoid density | | | projecting adjacent to the proximal left humeral diaphysis is | | | non-specific. IMPRESSION - 1. SUSPECT PULMONARY | | | HYPERINFLATION AND OBSTRUCTIVE LUNG DISEASE. Dictated and Signed | | | by: Jossue Grayson MD Electronically signed: 05/01/2017 2:35 PM | | + + + + + | Procedure Note | + + | Tomer, Rad Results In - 05/01/2017 2:39 PM PDT PA AND LATERAL CHEST 05/01/2017 1:37 PM | | | | CLINICAL HISTORY: preoperative clearance | | | | COMPARISON: None available | | | | FINDINGS: There is calcification of the thoracic aorta and likely the subclavian | | arteries as well. The cardiomediastinal silhouette and pulmonary vasculature | | are otherwise unremarkable. The lungs appear somewhat hyperinflated but are | | otherwise clear, without pneumothorax or pleural effusion. Generalized | | osteopenia is suggested. Degenerative changes of the shoulders are noted. An | | ovoid density projecting adjacent to the proximal left humeral diaphysis is | | non-specific. | | | | IMPRESSION - | | | | 1. SUSPECT PULMONARY HYPERINFLATION AND OBSTRUCTIVE LUNG DISEASE. | | | | Dictated and Signed by: Jossue Grayson MD | | Electronically signed: 05/01/2017 2:35 PM | + + + + + + + | Performing | Address | City/State/Zipcode | Phone Number | | Organization | | | | + + + + + | [facility] | [address] [place] [address] | [place] | [phone] | | [facility] | | [address] | | | - IMAGING | | [...] | neurogenic claudication | + + | Other spondylosis, lumbar region | + + | DDD (degenerative disc disease), lumbar Degeneration of lumbar or lumbosacral | | intervertebral disc | + + | Hand weakness Muscle weakness (generalized) | + + | Hyperreflexia Abnormal reflex | + + | Osteoporosis Osteoporosis, unspecified | + + | Lumbar foraminal stenosis Spinal stenosis, lumbar region, without neurogenic | | claudication | + + | Spondylosis of cervical joint without myelopathy Cervical spondylosis without | | myelopathy | + + | Foraminal stenosis of cervical region Spinal stenosis in cervical region | + + documented in this encounter"
--- OUTSIDE RECORDS SUMMARY | ~2020-04-03 | XMS | Encounter Summary ---
Demographics + + + | Address | [address] | | | [place] [address] | + + + | Home Phone | | + + + | Preferred Language | Unknown | + + + | Marital Status | | + + + | Islam Affiliation | 1041 | + + + | Race | Unknown | + + + | Ethnic Group | Unknown | + + + Author + + + | Author | [facility] | | | and [place] | + + + | Organization | [facility] | | | and [place] | + + + | Address | Unknown | + + + | Phone | Unavailable | + + + Support + + + + + | Name | Relationship | Address | Phone | + + + + + | Juanita Espinal | ECON | [address] | | | | | [place] | | | | | [address] | | + + + + + Care Team Providers + +------+ + | Care Biomedical Equipment Tech Name | Role | Phone | + [...] | Lumbar | [place], | [address] | | | | | radiculopath | Piotr Huizar MD | [place], | | | | | y | [address] | [place] | | | | | Procedures | [place] | [address] | | | | | [place] INJECT | [place] | Phone: | | | | | ANES/STEROID | [address] | [phone] | | | | | FORAMEN | Phone: | Fax: | | | | | LUMBAR/SACRA | [phone] | [phone] | | | | | L [address] IMG | Fax: | | | | | | GUIDE ,1 | [phone] | | | | | | [place] | | | | | | | [...] | | | | | | | [place] | | | | | | | [...] + + | 08/14/ | Hospital | [facility] | Bogdanowicz, | Lumbar | | 2016 | Encounter | MED CTR XRAY [address] | [address] | radiculopathy; | | | | [place] | [facility] [address] | Spondylolisthesis of | | | | [place] [address] | [place] [address] | lumbar region; DDD | | | | [phone] | [phone] | (degenerative disc | | | | | | disease), lumbar; | | | | | [place] | Lumbar foraminal | | | [...] Diagnosis: Lumbosacral radiculopathy ICD-10 Code M54.16 | [facility] | | Dorothea Calvo presents to the fluoroscopy suite for [facility] | | fluoroscopically-guided bilateral S1 transforaminal epidural [...] + | [facility] | [address] | [place], [place] | [phone] | | [facility] | | [address] | | | - IMAGING | | [...] | | | | | Other, ONCE, [facility] 08/14/16 at | | PM PDT | [...] | | | | | Other, ONCE, [facility] 08/14/16 at 1615, | | PM PDT [...]
--- OUTSIDE RECORDS SUMMARY | ~2020-04-03 | XMS | Encounter Summary ---
Demographics + + + | Address | [address] | | | [place] [address] | + + + | Home Phone | | + + + | Preferred Language | Unknown | + + + | Marital Status | | + + + | Cheondoism Affiliation | 1041 | + + + | Race | Unknown | + + + | Ethnic Group | Unknown | + + + Author + + + | Author | [facility] | | | and [place] | + + + | Organization | [facility] | | | and [place] | + + + | Address | Unknown | + + + | Phone | Unavailable | + + + Support + + + + + | Name | Relationship | Address | Phone | + + + + + | Juanita Espinal | ECON | [address] | | | | | [place] | | | | | [address] | | + + + + + Care Team Providers + +------+ + | Care Cut Off Saw Tender Metal Name | Role | Phone | + [...] [address] | | | | | [place], [place] | [place] [address] | | | | | [address] | [phone] | | | | | [phone] | | | +--------+ + + + [...]
--- OUTSIDE RECORDS SUMMARY | ~2020-04-03 | XMS | Encounter Summary ---
Demographics + + + | Address | [address] | | | [place] [address] | + + + | Home Phone | | + + + | Preferred Language | Unknown | + + + | Marital Status | | + + + | Orthodox Affiliation | 1041 | + + + | Race | Unknown | + + + | Ethnic Group | Unknown | + + + Author + + + | Author | [facility] | | | and [place] | + + + | Organization | [facility] | | | and [place] | + + + | Address | Unknown | + + + | Phone | Unavailable | + + + Support + + + + + | Name | Relationship | Address | Phone | + + + + + | Juanita Espinal | ECON | [address] | | | | | [place] | | | | | [address] | | + + + + + Care Team Providers + +------+ + | Care Pharmaceutical Plant Operator Name | Role | Phone | + +------+ + | Hemanth Lmia PCP | | | MD | | | + +------+ + Encounter Details +--------+ + + + + | Date | Type | Department | Care Team | Description | +--------+ + + + + | 08/13/ | Abstract | [facility] [place] | Marcelo Cruz, | | | 2017 | | [facility] | MD [address] [facility] | | | | | [address], | [place] [address] | | | | | [address] [place] | [place] | | | | | [place] [address] | [address] | | | | | [phone] | | | +--------+ + + + [...]
--- OUTSIDE RECORDS SUMMARY | ~2020-04-03 | XMS | Encounter Summary ---
Demographics + + + | Address | [address] | | | [place] [address] | + + + | Home Phone | | + + + | Preferred Language | Unknown | + + + | Marital Status | | + + + | Episcopalian Affiliation | 1041 | + + + | Race | Unknown | + + + | Ethnic Group | Unknown | + + + Author + + + | Author | [facility] | | | and [place] | + + + | Organization | [facility] | | | and [place] | + + + | Address | Unknown | + + + | Phone | Unavailable | + + + Support + + + + + | Name | Relationship | Address | Phone | + + + + + | Juanita Espinal | ECON | [address] | | | | | [place] | | | | | [address] | | + + + + + Care Team Providers + +------+ + | Care Wireless Internet Installer Name | Role | Phone | + +------+ + | Hemanth Lima PCP | | | MD | | | + +------+ + Reason for Visit + + + | Reason | Comments | + + + | Procedure | | + + + Encounter Details +--------+ + + + + | Date | Type | Department | Care Team | Description | +--------+ + + + + | 05/22/ | Telephone | [facility] [place] | Edin Lynn MD | Procedure | | 2016 | | NEUROSURGERY [address] | [address] | | | | | [address] | [place] [address] | | | | | [place] | [phone] | | | | | [address] | | | | | | [phone] | | | +--------+ + + + [...]
--- OUTSIDE RECORDS SUMMARY | ~2020-04-03 | XMS | Encounter Summary ---
Demographics + + + | Address | [address] | | | [place] [address] | + + + | Home Phone | | + + + | Preferred Language | Unknown | + + + | Marital Status | | + + + | Roman Catholic Affiliation | 1041 | + + + | Race | Unknown | + + + | Ethnic Group | Unknown | + + + Author + + + | Author | [facility] | | | and [place] | + + + | Organization | [facility] | | | and [place] | + + + | Address | Unknown | + + + | Phone | Unavailable | + + + Support + + + + + | Name | Relationship | Address | Phone | + + + + + | Juanita Espinal | ECON | [address] | | | | | [place] | | | | | [address] | | + + + + + Care Team Providers + +------+ + | Care Claims Collector Name | Role | Phone | + +------+ + | Hemanth Lima PCP | | | MD | | | + +------+ + Encounter Details +--------+ + + + + | Date | Type | Department | Care Team | Description | +--------+ + + + + | 11/27/ | [facility] | [facility] | Edin Lynn MD | S/P lumbar fusion | | 2018 | Encounter | MED CTR XRAY [address] | [address] | | | | | [place] | [place] [address] | | | | | [place] [address] | [phone] | | | | | [phone] | | | +--------+ + + + [...] | 5 | 08/05/20 | | | (PACERONE) 200 mg | MOUTH TWICE DAILY | tablet | | 17 | 8 | | tablet | | | | | | + + + +---------+ + + | dilTIAZem (CARTIA | TAKE ONE CAPSULE BY | 30 | 5 | 08/05/20 | | | XT) 120 mg 24 hr | MOUTH ONCE DAILY | capsule | | 17 | 8 | | capsule | | | | | | + [...] LUMBAR SPINE 2 [place] | Routin | 11/27/2017 | S/P lumbar fusion | Results for this | | 3 VW | e | 9:43 AM | | procedure are in the | | | | PST | | results section. | + +--------+ [...] + | Jai Jeff Results In - 11/27/2017 11:04 AM PST [...] + + | Performing | Address | City/State/[facility] | Phone Number | | Organization | | | | + +---------+ + + | [facility] | | | | + +---------+ + + documented in this encounter Visit Diagnoses + + | Diagnosis | + + | S/P lumbar fusion Arthrodesis status | + + documented in this encounter"
--- OUTSIDE RECORDS SUMMARY | ~2020-04-03 | XMS | Encounter Summary ---
Demographics + + + | Address | [address] | | | [place] [address] | + + + | Home Phone | | + + + | Preferred Language | Unknown | + + + | Marital Status | | + + + | Spiritism Affiliation | 1041 | + + + | Race | Unknown | + + + | Ethnic Group | Unknown | + + + Author + + + | Author | [facility] | | | and [place] | + + + | Organization | [facility] | | | and [place] | + + + | Address | Unknown | + + + | Phone | Unavailable | + + + Support + + + + + | Name | Relationship | Address | Phone | + + + + + | Juanita Espinal | ECON | [address] | | | | | [place] | | | | | [address] | | + + + + + Care Team Providers + +------+ + | Care Advanced Manager Name | Role | Phone | + +------+ + | Hemanth Lima PCP | | | MD | | | + +------+ + Reason for Visit + + + | Reason | Comments | + + + | New Patient | | + + + | Hospital Follow-up | | + + + | Atrial Fibrillation | | + + + Evaluate & Treat (Routine) +--------+--------+ + + + + | Status | Reason | Specialty | Diagnoses / | Referred By | Referred To | | | | | Procedures | Contact | Contact | +--------+--------+ + + + + | Closed | | Cardiology | Diagnoses | [facility] | MD Sarah | MD Sarah | | | | | discharge | [address] [place] [address] | [address] [place] [address] | | | | | follow-up | [address] | [address] 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 | | | | | | | CONSULTED BY | | | | | | | [facility] | | | | | | | HOSP. | | | +--------+--------+ + + + + Encounter Details +--------+---------+ + + + | Date | Type | Department | Care Team | Description | +--------+---------+ + + + | 07/17/ | Office | [facility] | Sarah Sears, | Atrial fibrillation, | | 2017 | Visit | CARDIOLOGY [address] | MD [address] [place] | unspecified type | | | | [place], | [place], | ([facility]) (Primary Dx) | | | | [place] [address] | [place] [address] | | | | | [phone] | [phone] | | | | | | | | +--------+---------+ + + + [...] + + + | Blood Pressure | 130/60 | 07/17/2017 8:34 AM | right | | | | PDT | | + + + + + | Pulse | 64 | 07/17/2017 8:18 AM | | | | | PDT | | + + + + + | Temperature | - | - | | + + + + + | Respiratory Rate | 16 | 07/17/2017 8:18 AM | | | | | PDT | | + + + + + | Oxygen Saturation | - | - | | + + + + + | Inhaled Oxygen | - | - | | | Concentration | | | | + + + + + | Weight | - | - | | + + + + + | Height | 167.6 cm (5' 6") | 07/17/2017 8:18 AM | | | [...] of this encounter Patient Instructions Patient Instructions Sirena Cifuentes RN - 07/17/2017 8:30 AM PDT1. Start Xarelto 20mg - take one tablet by mouth one time daily 2. Follow up appointment: 3 months Provider: Date: Check-In Time: documented in this encounter Progress Notes Sarah Sears MD - 07/17/2017 8:30 AM PDTFormatting of this note might be different f rom the original. PATIENT NAME: Dorothea Calvo : 1945: AGE: 72 y.o. REFERRED BY: Sarah Sears PRIMARY CARE: Hemanth Lima MD NEW PATIENT OFFICE VISIT Date of Service: 07/17/17 HISTORY OF PRESENT ILLNESS: Dorothea Calvo is a 72 y.o. female with a history of persistent atrial fibrillation, s willam stenosis, rheumatoid arthritis, and hypertension. She is being seen today for hosptial follow up. Patient was in her usual state of health until, 05/26/2017 she was admitted to the hospital for back surgery seen by SHAUN Barnhart. At that time she was found to be in Atrial Fib rillation. She was put on amiodarone. Anticoagulation did not start because of the recent back surgery. Today, patient presents with her ankle wrapped. She reports that she fell early this mornin g when she tripped and injured her foot. Patient currently lives by herself in her home in [place], [place]. Patient is physically active and exercises regularly by doing aqua-therapy 2 d ays a week, 45 minute sessions. There is no chest pain or chest discomfort both at rest and on exertion. Patient denies breathlessness. There is no palpitation dizziness or lighthea dedness. Patient can sleep on one pillow at night without difficulty breathing. CURRENT PROBLEMS Patient Active Problem List Diagnosis Lumbar radiculopathy Spondylolisthesis of lumbar region Lumbar facet arthropathy Foraminal stenosis of lumbar region Other spondylosis, lumbar region DDD (degenerative disc disease), lumbar Hand weakness Hyperreflexia Osteoporosis Lumbar foraminal stenosis Spondylosis of cervical joint without myelopathy Foraminal stenosis of cervical region Atrial fibrillation with RVR Status post lumbar spinal fusion Acute metabolic encephalopathy Depression, unspecified depression type Anxiety state, unspecified Delirium due to multiple etiologies S/P lumbar fusion MEDICAL, SURGICAL, AND PERSONAL HISTORY Past Surgical History: Procedure Laterality Date APPENDECTOMY Cataract surgery 2008 Dr. Andrew Maldonado [facility]terior 05/26/2017 Procedure: L2-3, L3-4, L4-5 Lateral Anterior Interbody Fusion; L5-S1 Transforaminal Lumbar Interbody Fusion; Posterior Fusion @ L2-3, L3-4, L4-5, L5-S1; Surgeon: Edin Lynn MD; L ocation: [facility] Tumor in neck [facility] Family History Problem Relation Age of Onset Tuberculosis Father 26 Cancer Mother 77 Alcohol abuse Mother No Known Problems Paternal Grandfather No Known Problems Paternal Grandmother No Known Problems Maternal Grandfather Lupus Maternal Grandmother Alcohol abuse Sister 2 sisters No Known Problems Brother Other (see comment) Sister Pancreatic cancer No Known Problems Child Family Status Relation Status Father at age 26 Mother at age 77 Brother Alive Sister Alive Sister Alive Child Alive Paternal Grandfather Other Not listed Paternal Grandmother Other Not listed Maternal Grandfather Maternal Grandmother at age 83 Sister Brother Sister Child Social History Social History Marital status: Spouse name: N/A Number of children: 1 Years of education: 16 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 Social History Main Topics Smoking status: Former Smoker Packs/day: 0.50 Years: 20.00 Types: Cigarettes Quit date: 11/18/2016 Smokeless tobacco: Never Used Comment: On and off for 20yrs Alcohol use No Drug use: No Sexual activity: No Other Topics Concern None Social History Narrative None CURRENT MEDICATIONS Current Outpatient Prescriptions Medication Sig Dispense Refill amiodarone (PACERONE) 200 mg tablet TAKE ONE TABLET BY MOUTH TWICE DAILY 60 tablet 0 CARTIA XT 120 MG 24 hr capsule TAKE ONE CAPSULE BY MOUTH ONCE DAILY 30 capsule 0 ELIQUIS 5 MG tablet TAKE ONE TABLET BY MOUTH TWICE DAILY 60 tablet 0 Magnesium 400 MG CAPS Take 1 capsule by mouth Three times a week. metoprolol succinate (TOPROL-XL) 100 mg ER tablet [...] No current facility-administered medications for this visit. ALLERGIES Allergies Allergen Reactions Adhesive & Tape Other (See Comments) Blisters where tape & bandages Uncoded Nonscreenable Allergen Nausea And Vomiting Problems related to anesthetic when waking up Codeine Rash Nabumetone Diarrhea ROS Review of Systems Constitutional: Positive for malaise/fatigue. Negative for chills, diaphoresis, fever and w eight loss. HENT: Negative for congestion, hearing loss, nosebleeds and tinnitus. Eyes: Negative for blurred vision and double vision. Respiratory: Negative for shortness of breath. Cardiovascular: Positive for chest pain and leg swelling. Negative for palpitations. Gastrointestinal: Positive for diarrhea. Negative for blood in stool, constipation, nausea and vomiting. Genitourinary: Negative for dysuria, frequency, hematuria and urgency. Musculoskeletal: Positive for back pain and falls. Negative for joint pain, myalgias and ne ck pain. Skin: Negative for itching and rash. Neurological: Positive for weakness. Negative for dizziness, tingling, tremors, speech nice ge, seizures and loss of consciousness. Endo/Heme/Allergies: Does not bruise/bleed easily. Psychiatric/Behavioral: Positive for memory loss. The patient is nervous/anxious and has in somnia. OBJECTIVE: PHYSICAL EXAM BP 130/60 Comment: right | Pulse 64 | Resp 16 | Ht 1.676 m (5' 6") Physical Exam Constitutional: Female individual arrives in a wheelchair, accompanied by her daughter, showing no acute di stress. Musculoskeletal: She exhibits edema (trace swelling on left ankle, wrapped). ECG: Normal sinus rhythm. LAB RESULTS: LIPID No results found for: CHOL, TRIG, HDL, LDL, CHOLHDL, LDLEX, HDLEX, TRIGEX, CHOLEX CHEMISTRY Lab Results Component Value Date GLU 95 06/06/2017 NA 139 06/06/2017 K 3.2 (L) 06/06/2017 CL 103 06/06/2017 CO2 28 06/06/2017 CALCIUM 8.2 (L) 06/06/2017 ALKPHOS 100 05/30/2017 AST 66 (H) 05/30/2017 ALT 52 (H) 05/30/2017 BILITOT 0.8 05/30/2017 CREA 0.61 06/06/2017 BUN 8 06/06/2017 HEMATOLOGY Lab Results Component Value Date WBC 10.9 05/30/2017 HGB 9.7 (L) 05/30/2017 HCT 28.8 (L) 05/30/2017 PLT 177 05/30/2017 I reviewed records from SHAUN Barnhart for hospitalization,including H&P, Discharge [facility] and lab reports on 05/26/2017-06/06/2017. Referred to supervisor cutting and sewing room. ASSESSMENT: 1. Persistent atrial fibrillation with rapid ventricular response A.Echocardiogram 09/05/2016 shows a technically difficult with suboptimal views, overall left ventricular systolic function is normal with an EF between 65-70%, left ventricular wal l thickness is normal. B. Patient developed atrial fibrillation on 05/27/17 one day after lumbar surgery and was seen bythe hospitalist, Dr. Resendiz. She was treated on the rate control strategy with a combination of IV diltiazem and metoprolol. Patient failed to respond to the rate con trol strategy so she was loaded with 1 g of IV amiodaroneon 05/31/70, continuing with oral loading dose of 400 mg twice a day. In the past 48 hours, patient continued to go in and o ut of atrial fibrillation with rapid ventricular response, heart rate of 140-150 bpm. She had been receiving additional 150 mg of IV amiodarone 4. C. Echocardiogram from 06/01/17 showed Mild left atrial dilatation. Normal left ventricular size, wall thickness and motion. Preserved left ventricular systolic function. LVEF is 70%. Mild aortic valve insufficiency. Mild mitral valve regurgitation. Mild mitral annular calci fication. Normal right-sided pressure. Normal IVC with normal respiratory collapse. D. She is in sinus rhythm. She is on rhythm control with amiodarone. She is doing pretty well from cardiac standpoint and she has no specific cardiac There is no signs and symptoms of overt congestive heart failure. She is in a class I of [place] Heart Association functional class. There is trace swelling on left ankle on phy sical examination. She is now on rhythm control strategy with amiodarone Risk of stroke is reviewed today; herrisk factors are Hx of HTN (1), Age 65 to 74 (1) a nd Female Gender (1), giving hayde [id number] 3, estimating a 3= 3.2%risk of stroke per year in atrial fibrillation. Risk of bleed on anticoagulant is also reviewed today; h errisk factors are HTN (1) and >64 YO (1) , giving hayde HAS-BLED score of 2, patient i s at 2-3= Intermediate Risk (4.1-5.8%) for risk of bleed. ESC guidelines recommend antic oagulation for scores of 1 or greater. ACC guidelines recommend anticoagulation for scores of 2 or greater. She will be starting Xarelto today. 2. History of spinal stenosis A. She underwentL2-3, L3-4, L4-5 Lateral Anterior Interbody Fusion; L5-S1 Transforam inal Lumbar Interbody Fusion; Posterior Fusion @ L2-3, L3-4, L4-5, L5-S1; Surgeon: Edin Lynn MD; on 05/26/17. 3. Rheumatoid arthritis A. On chronic steroid, hypertension, paroxysmal atrial fibrillation, COPD. 4. Hypertension A. Today's blood pressure was well controlled. PLAN: 1. I spend time at length talking about natural course, treatment and prognosis of atrial fibrillation. 2. Start taking Xarelto 20 mg daily. 3. I recommend a therapeutic lifestyle change including walking 30 minutes a day, choosing healthy choices of diet. 4. Follow up in 3 months. Richie Alfaro am acting as a scribe on behalf of, and in the presence of Suwong Wongsuwan, MD. I have reviewed and edited this note. Alejandra Alfaro [facility] 07/17/2017 I, Sarah Sears MD, personally performed the services described in this documentation, as scribed in my presence and it is both accurate and complete. Alejandra Alfaro [facility] 07/17/2017 8:39 Electronically signed by: Sarah Sears MD [facility] 07/17/2017 Portions of this chart may have been created with [employer] voice recognition software. Occasi onal wrong-word or sound-alike substitutions may have occurred due to the inherent munson itations of voice recognition software. Please read the chart carefully and recognize, using context, where these substitutions have occurred. documented in this encounter Plan of Treatment Not on filedocumented as of this encounter Procedures + +--------+ + + + | Procedure Name | Priori | Date/Time | Associated Diagnosis | Comments | | | ty | | | | + +--------+ + + + | ECG 12 LEAD | Routin | 07/17/2017 | Atrial | Results for this | | | e | 8:27 AM | fibrillation, | procedure are in the | | | | PDT | unspecified type | results section. | | | | | (HCC) | | + +--------+ + + + documented in this encounter Results ECG 12 lead (07/17/2017 8:27 AM PDT) + + + + + + | Component | Value | Ref Range | Performed | Pathologist | | | | | At | Signature | + + + + + + | VENTRICULAR | 64 | BPM | [facility] | | | RATE EKG | | | | | + + + + + + | ATRIAL RATE | 64 | BPM | [facility] | | + + + + + + | P-R | 140 | ms | [facility] | | | INTERVAL | | | | | + + + + + + | QRS | 78 | ms | [facility] | | | DURATION | | | | | + + + + + + | Q-T | 424 | ms | [facility] | | | INTERVAL | | | | | + + + + + + | Q-T | 437 | ms | [facility] | | | INTERVAL | | | | | | (CORRECTED) | | | | | + + + + + + | P WAVE AXIS | 69 | degrees | [facility] | | + + + + + + | QRS AXIS | 46 | degrees | [facility] | | + + + + + + | T AXIS | 64 | degrees | [facility] | | + + + + + + | INTERPRETAT | Normal sinus | | [facility] | | | ION TEXT | rhythmNormal ECGWhen | | | | | | compared with ECG of | | | | | | 31-MAY-2017 14:13,No | | | | | | significant change was | | | | | | foundConfirmed by | | | | | | SARAH SEARS MD | | | | | | ([id number]) on 07/17/2017 | | | | | | 3:40:26 PM | | | | + + + [...] + | Diagnosis | + + | Atrial fibrillation, unspecified type (HCC) - Primary | + + documented in this encounter
--- OUTSIDE RECORDS SUMMARY | ~2020-04-03 | XMS | Encounter Summary ---
Demographics + + + | Address | [address] | | | [place] [address] | + + + | Home Phone | | + + + | Preferred Language | Unknown | + + + | Marital Status | | + + + | Tenriism Affiliation | 1041 | + + + | Race | Unknown | + + + | Ethnic Group | Unknown | + + + Author + + + | Author | [facility] | | | and [place] | + + + | Organization | [facility] | | | and [place] | + + + | Address | Unknown | + + + | Phone | Unavailable | + + + Support + + + + + | Name | Relationship | Address | Phone | + + + + + | Juanita Espinal | ECON | [address] | | | | | [place] | | | | | [address] | | + + + + + Care Team Providers + +------+ + | Care Xerox Machine Mechanic Name | Role | Phone | + +------+ + | Hemanth Lima PCP | | | MD | | | + +------+ + Reason for Visit + + + | Reason | Comments | + + + | Medication Question | | + + + Encounter Details +--------+--------+ + + + | Date | Type | Department | Care Team | Description | +--------+--------+ + + + | 08/05/ | Refill | [facility] [place] | Jeffry France | Medication Question | | 2016 | | NEUROSURGERY [address] | [address] | | | | | [address] | [address] | | | | | [place], [place] | [place] [address] | | | | | [address] | [phone] | | | | | [phone] | | | +--------+--------+ + + + [...]
--- OUTSIDE RECORDS SUMMARY | ~2020-04-03 | XMS | Encounter Summary ---
Demographics + + + | Address | [address] | | | [place] [address] | + + + | Home Phone | | + + + | Preferred Language | Unknown | + + + | Marital Status | | + + + | Mandaen Affiliation | 1041 | + + + | Race | Unknown | + + + | Ethnic Group | Unknown | + + + Author + + + | Author | [facility] | | | and [place] | + + + | Organization | [facility] | | | and [place] | + + + | Address | Unknown | + + + | Phone | Unavailable | + + + Support + + + + + | Name | Relationship | Address | Phone | + + + + + | Juanita Espinal | ECON | [address] | | | | | [place] | | | | | [address] | | + + + + + Care Team Providers + +------+ + | Care Surg Physician Asst Name | Role | Phone | + +------+ + | Hemanth Lima PCP | | | MD | | | + +------+ + Reason for Visit +---------+ + | Reason | Comments | +---------+ + | Post Op | Sx: 05/26/17 | +---------+ + Encounter Details +--------+---------+ + + + | Date | Type | Department | Care Team | Description | +--------+---------+ + + + | 11/27/ | Office | [facility] | Edin Lynn MD | S/P lumbar fusion | | 2018 | Visit | NEUROSURGERY [address] | [address] | (Primary Dx); | | | | [address] | [place] [address] | Spondylolisthesis of | | | | [place] | [phone] | lumbar region; | | | | [address] | | Lumbar | | | | [phone] | Jeffry France | radiculopathy; | | | | | [address] | Lumbar foraminal | | | | | [address] | stenosis; Lumbar | | | | | [place] [address] | facet arthropathy | | | | | [phone] | | | | | | | [...] + + + | Blood Pressure | 138/56 | 11/27/2017 9:54 AM | | | | | PST | | + + + + + | Pulse | 55 | 11/27/2017 9:54 AM | | | | | PST [...] + + + + | Weight | 62.1 kg (137 lb) | 11/27/2017 9:54 AM | | | | | PST | | + + + + + | Height | 167.6 cm (5' 6") | 11/27/2017 9:54 AM | | | | | PST | | + + + + + | Body Mass Index | 22.11 | 11/27/2017 9:54 AM | | | | | PST [...] documented as of this encounter Progress Notes Jeffry France PA-C - 11/27/2017 9:30 AM PSTFormatting of this note might be differ ent from the original. Jeffry France PA-C and Edin Lynn MD [address] [place] [address], [address] [place] [id number] NEUROSURGERY FOLLOW-UP CHIEF COMPLAINT: Chief Complaint Patient presents with Post Op Sx: 05/26/17 HISTORY OF PRESENT ILLNESS: The patient is a 72 y.o. female that had a L2-3, L3-4, L4-5 La teral Anterior Interbody Fusion; L5-S1 Transforaminal Lumbar Interbody Fusion; Posterior Fus ion @ L2-3, L3-4, L4-5, L5-S1 for back and bilateral leg symptoms for around 6 months ago. She returns and overall is doing well. The patient complains of right leg hypersensitivity that she describes as sore and tender to palpation this is improving significantly however. She localizes a majority of her pain in the anterior portion of her right thigh. She report s her overall pain post operatively is greatly improved to pre operative symptoms. The shay ent has not been walking as much as directed due to several falls, with one of her falls re sulting in an ankle fracture. She describes making slow progress towards walking again, but reports she has severe and unanticipated balance difficulties. The patient reports she has h ad less and less falls over time. The patient presents in office today in a wheelchair, but reports she has begun to use a walker. She reports overall her symptoms continue to improve, including short term memory. CURRENT MEDICATIONS: , Current Outpatient Prescriptions Medication Sig Dispense Refill amiodarone (PACERONE) 200 mg tablet TAKE ONE TABLET BY MOUTH TWICE DAILY 60 tablet 5 apixaban (ELIQUIS) 5 mg tablet TAKE ONE TABLET BY MOUTH TWICE DAILY 60 tablet 5 dilTIAZem (CARTIA XT) 120 mg 24 hr capsule TAKE ONE CAPSULE BY MOUTH ONCE DAILY 30 caps ule 5 furosemide (LASIX) 20 mg tablet Take [...] patient reports that she quit smoking about a year ago. Her smoking use included Cigar ettes. She has a 10.00 pack-year smoking history. [...] RHEUMATOLOGIC: No joint arthritis, no rheumatoid arthritis. INTERIM PHYSICAL EXAMINATION: Blood pressure 138/56, pulse 55, height 1.676 m (5' 6"), weight 62.1 kg (137 lb), not curre ntly . Body mass index is 22.11 kg/m. GENERAL: Dorothea Calvo is in no [...] preoperative exam. SENSORY EXAM: The sensory examination shows hypersensitivity to touch of the anterior porti on of the thighs bilaterally, behind her knees, and down her legs bilaterally. RADIOGRAPHIC REVIEW: The patient s x-rays show stable instrumentation and alignment and were reviewed with the patient today. There is subsidence at L2-3 but it is overall stable since her 06/2017 films . ASSESSMENT: Encounter Diagnoses Name Primary? S/P lumbar fusion Yes Spondylolisthesis of lumbar region Lumbar radiculopathy Lumbar foraminal stenosis Lumbar facet arthropathy Past Medical History: Diagnosis Date Acute pansinusitis Atrial fibrillation ([facility]) 08-18-2016 Atypical chest pain Bilateral leg pain Contusion of knee with skin surface intact Right Anterior COPD (chronic obstructive pulmonary disease) ([facility]) Heart failure ([facility]) [place] (hard of hearing) Hyperlipoproteinemia type Li-a Impacted cerumen of right ear Low back pain Lumbar foraminal stenosis 08/13/2016 Lumbar herniated disc L1/T2 Left Lumbar neuritis L3-L4, L4-L5, L5/S1 Lumbar spondylosis Lumbar stenosis Moderate major depression, single episode ([facility]) Neoplasm of uncertain behavior of skin PONV (postoperative nausea and vomiting) projectile vomitting waking up after surgery Primary localized osteoarthritis of left hip Rheumatoid arthritis involving multiple sites (HCC) Sacroiliac pain Spinal stenosis, lumbar Lumbar canal with neurogenic claudication Spondylolisthesis of lumbar region L3/L4, L4/L5 TB (tuberculosis) Thoracic neuritis T1-T2 PLAN: Overall, the patient is doing fairly well. Most of the preoperative symptoms are resolvin g as expected now. I increased the patient s activities now allowing 15 pound lifting. They should continue regular exercise and strengthening with the hope that they can avoid additional surgery. S he is still working with PT. detention pain medication does not appear to be needed. The patient needs to follow-up in 6 months with x-rays for re-evaluation. ELECTRONICALLY SIGNED BY: Jeffry France PA-C and Edin Lynn MD, 11/27/2017 10:15 I, Jeffry France PA-C, personally performed the services described in this documentation , as scribed by Minerva Covarrubias CMA in my presence, and it is both accurate and complete. Jeffry France PA-C 11/27/2017 documented in this encou nter Plan of Treatment Not on filedocumented as of this encounter Visit Diagnoses + + | Diagnosis | + + | S/P lumbar fusion - Primary Arthrodesis status | + + | Spondylolisthesis of lumbar region Acquired spondylolisthesis | + + | Lumbar radiculopathy Thoracic or lumbosacral neuritis or radiculitis, unspecified | + + | Lumbar foraminal stenosis Spinal stenosis, lumbar region, without neurogenic | | claudication | + + | Lumbar facet arthropathy Lumbosacral spondylosis without myelopathy | + + documented in this encounter
--- OUTSIDE RECORDS SUMMARY | ~2020-04-03 | XMS | Encounter Summary ---
Demographics + + + | Address | [address] | | | [place] [address] | + + + | Home Phone | | + + + | Preferred Language | Unknown | + + + | Marital Status | | + + + | Advent Affiliation | 1041 | + + + | Race | Unknown | + + + | Ethnic Group | Unknown | + + + Author + + + | Author | [facility] | | | and [place] | + + + | Organization | [facility] | | | and [place] | + + + | Address | Unknown | + + + | Phone | Unavailable | + + + Support + + + + + | Name | Relationship | Address | Phone | + + + + + | Juanita Espinal | ECON | [address] | | | | | [place] | | | | | [address] | | + + + + + Care Team Providers + +------+ + | Care Ecosystem Ecology Professor Name | Role | Phone | + +------+ + | Hemanth Lima | PCP | | | MD | | | + +------+ + Encounter Details +--------+ + + + + | Date | Type | Department | Care Team | Description | +--------+ + + + + | 08/12/ | Hospital | [facility] | Jeffry [place] | Osteoporosis | | 2016 | Encounter | [facility] | [address] | | | | | [address] | | | | | | [place], [place] | [place] [address] | | | | | [address] | [phone] | | | | | [phone] | | | +--------+ + + + [...] | + +--------+ + + + | DEXA BONE DENSITY | Routin | 08/12/2016 | Osteoporosis | Results for this | | STUDY Letty ABBOTT | e | 10:46 AM | | procedure are in the | | ASSESSMENT | | PDT | | results section. | + +--------+ + + + documented in this encounter Results DEXA Bone Density W Vern[facility]a FX Assessment (08/12/2016 10:46 AM PDT) + + | Specimen | + + | | + + + + + | Narrative | Performed At | + + + | DEXA BONE DENSITY STUDY W [facility]CTOR HUGO FX ASSESSMENT 08/12/2016 10:46 AM | [facility] | | HISTORY: OSTEOPOROSIS. COMPARISON: None. PROTOCOL: Bone | [facility] | | mineral density was calculated with dual absorption x-ray technique. | MEDICAL CENTER | | FINDINGS: Bone mineral density for the left femoral neck is 0.699 | - IMAGING | | g/cm2, corresponding to a T score of -1.3 and a Z score of 0.5. The | | | bone mineral density for the entire left hip is 0.934 g/cm2, | | | corresponding to a T score of -0.1 and a Z score of 1.5. Bone | | | mineral density for the lumbar spine measured from L1 to L4 is 1.249 | | | g/cm2, corresponding to a T score of 1.8 and a Z score of 4.0. Please | | | note that bone mineral density of the lumbar spine may be | | | overestimated due to the presence of multilevel lumbar degeneration. | | | IMPRESSION - Bone mineral density for the left femoral neck | | | corresponds to World Health Organization classification of | | | osteopenia. Total bone mineral density for the L1 to L4 region of | | | the lumbar spine corresponds to World Health Organization | | | classification of normal. Please note that bone mineral density of | | | the lumbar spine may be overestimated due to the presence of | | | multilevel lumbar degeneration. World Health Organization | | | Classification Normal: T score at or above | | | -1 SD Osteopenia: T score between -1 and -2.5 SD | | | Osteoporosis: T score at or below -2.5 SD Dictated and | | | Signed by: Jalen Ungre MD Electronically signed: 08/12/2016 11:51 | | | AM | | + + + + + | Procedure Note | + + | Tomer, Rad Results In - 08/12/2016 11:54 AM PDT DEXA BONE DENSITY STUDY W [facility] | | ASSESSMENT 08/12/2016 10:46 AMHISTORY: OSTEOPOROSIS.COMPARISON: None.PROTOCOL: Bone | | mineral density was calculated with dual absorption x-raytechnique.FINDINGS:Bone mineral | | density for the left femoral neck is 0.699 g/cm2, corresponding toa T score of -1.3 and | | a Z score of 0.5. The bone mineral density for the entireleft hip is 0.934 g/cm2, | | corresponding to a T score of -0.1 and a Z score of1.5. Bone mineral density for the | | lumbar spine measured from L1 to L4 is 1.249 g/cm2,corresponding to a T score of 1.8 and | | a Z score of 4.0. Please note that bonemineral density of the lumbar spine may be | | overestimated due to the presence ofmultilevel lumbar degeneration.IMPRESSION -Bone | | mineral density for the left femoral neck corresponds to World HealthOrganization | | classification of osteopenia.Total bone mineral density for the L1 to L4 region of the | | lumbar spinecorresponds to World Health Organization classification of normal. Please | | notethat bone mineral density of the lumbar spine may be overestimated due to | | thepresence of multilevel lumbar degeneration.World Health Organization | | ClassificationNormal: T score at or above -1 SDOsteopenia: T | | score between -1 and -2.5 SDOsteoporosis: T score at or below -2.5 SDDictated | | and Signed by: Jalen Unger MD Electronically signed: 08/12/2016 11:51 AM | |mineral density of the lumbar spine may be overestimated due to the presence of | |multilevel lumbar degeneration. | | | |IMPRESSION - | |Bone mineral density for the left femoral neck corresponds to World Health | |Organization classification of osteopenia. | | | |Total bone mineral density for the L1 to L4 region of the lumbar spine | |corresponds to World Health Organization classification of normal. Please note | |that bone mineral density of the lumbar spine may be overestimated due to the | |presence of multilevel lumbar degeneration. | | | |World Health Organization Classification | |Normal: T score at or above -1 SD | |Osteopenia: T score between -1 and -2.5 SD | |Osteoporosis: T score at or below -2.5 SD | | | |Dictated and Signed by: Jalen Unger MD | | Electronically signed: 08/12/2016 11:51 AM | + + + + + + + | Performing | Address | City/State/Zipcode | Phone Number | | Organization | | | | + + + + + | [facility] | [address] | [place] | [phone] | | [facility] | | [address] | | | - IMAGING | | | | + + + + + documented in this encounter Visit Diagnoses + + | Diagnosis | + + | Osteoporosis Osteoporosis, unspecified | + + documented in this encounter"
--- OUTSIDE RECORDS SUMMARY | ~2020-04-03 | XMS | Encounter Summary ---
Demographics + + + | Address | [address] | | | [place] [address] | + + + | Home Phone | | + + + | Preferred Language | Unknown | + + + | Marital Status | | + + + | Temple Affiliation | 1041 | + + + | Race | Unknown | + + + | Ethnic Group | Unknown | + + + Author + + + | Author | [facility] | | | and [place] | + + + | Organization | [facility] | | | and [place] | + + + | Address | Unknown | + + + | Phone | Unavailable | + + + Support + + + + + | Name | Relationship | Address | Phone | + + + + + | Juanita Espinal | ECON | [address] | | | | | [place] | | | | | [address] | | + + + + + Care Team Providers + +------+ + | Care Clothing Consultant Name | Role | Phone | + +------+ + | Hemanth Lima PCP | | | MD | | | + +------+ + Encounter Details +--------+ + + + + | Date | Type | Department | Care Team | Description | +--------+ + + + + | 07/23/ | Hospital | [facility] | Cornia, Jaswant T, | | | 2017 | Encounter | MED CTR XRAY [address] | DPM [address] | | | | | [place] | [place], [place] | | | | | [place] [address] | [address] | | | | | [phone] | [phone] | | | | | | | [...] | + +--------+ + + + | MEME CHOUDHARY STATS NO | Routin | 07/23/2017 | | Results for this | | CHARGE | e | 2:14 PM | | procedure are in the | | | | PDT | | results section. | + +--------+ + + + documented in this encounter Results MEME Woodard Statbandar No Charge (07/23/2017 2:14 PM PDT) + [...]
--- OUTSIDE RECORDS SUMMARY | ~2020-04-03 | XMS | Encounter Summary ---
Demographics + + + | Address | [address] | | | [place] [address] | + + + | Home Phone | | + + + | Preferred Language | Unknown | + + + | Marital Status | | + + + | Congregational Affiliation | 1041 | + + + | Race | Unknown | + + + | Ethnic Group | Unknown | + + + Author + + + | Author | [facility] | | | and [place] | + + + | Organization | [facility] | | | and [place] | + + + | Address | Unknown | + + + | Phone | Unavailable | + + + Support + + + + + | Name | Relationship | Address | Phone | + + + + + | Juanita Espinal | ECON | [address] | | | | | [place] | | | | | [address] | | + + + + + Care Team Providers + +------+ + | Care Filling And Packing Supervisor Name | Role | Phone | + +------+ + | Hemanth Lima PCP | | | MD | | | + +------+ + Encounter Details +--------+ + + + + | Date | Type | Department | Care Team | Description | +--------+ + + + + | 11/27/ | [facility] | [facility] | Edin Lynn MD | S/P lumbar fusion | | 2018 | Encounter | MED CTR XRAY [address] | [address] | | | | | [place] | [place] [address] | | | | | [place] [address] | [phone] | | | | | [phone] | | | +--------+ + + + [...] + + | Performing | Address | City/[facility] | Phone Number | | Organization | | | | + +---------+ + + | [facility] | | | | + +---------+ + + documented in this encounter Visit Diagnoses + + | Diagnosis | + + | S/P lumbar fusion Arthrodesis status | + + documented in this encounter"
--- OUTSIDE RECORDS SUMMARY | ~2020-04-03 | XMS | Encounter Summary ---
Demographics + + + | Address | [address] | | | [place] [address] | + + + | Home Phone [...] Organization | [facility] | | | and [place] | + + + | Address | Unknown | + + + | Phone | Unavailable | + + + Support + + + + + | Name | Relationship | Address | Phone | + + + + + | Juanita Espinal | ECON | [address] | | | | | [place] | | | | | [address] | | + + + + + Care Team Providers + +------+ + | Care Job Placement Specialist Name | Role | Phone | + +------+ + | Hemanth Lima PCP | | | MD | | | + +------+ + Reason for Visit + + + | Reason | Comments | + + + | Post Op | PO Call | + + + | Neurosurgery | | | Appointment | | + + + Encounter Details +--------+ + + + + | Date | Type | Department | Care Team | Description | +--------+ + + + + | 06/08/ | Telephone | [facility] | Edin Lynn MD | Post Op (PO Call); | | 2016 | | NEUROSURGERY [address] | Neurosurgery | | | | [address] | [place] [address] | Appointment | | | | [place] | [phone] | | | | | [address] | | | | | | [phone] | | | +--------+ + + + [...]
--- OUTSIDE RECORDS SUMMARY | ~2020-04-03 | XMS | Encounter Summary ---
Demographics + + + | Address | [address] | | | [place] [address] | + + + | Home Phone | | + + + | Preferred Language | Unknown | + + + | Marital Status | | + + + | Nondenominational Affiliation | 1041 | + + + | Race | Unknown | + + + | Ethnic Group | Unknown | + + + Author + + + | Author | [facility] | | | and [place] | + + + | Organization | [facility] | | | and [place] | + + + | Address | Unknown | + + + | Phone | Unavailable | + + + Support + + + + + | Name | Relationship | Address | Phone | + + + + + | Juanita Espinal | ECON | [address] | | | | | [place] | | | | | [address] | | + + + + + Care Team Providers + +------+ + | Care Pipe Fitter Welding Name | Role | Phone | + +------+ + | Hemanth Lima PCP | | | MD | | | + +------+ + Encounter Details +--------+ + + + + | Date | Type | Department | Care Team | Description | +--------+ + + + + | 07/23/ | Hospital | [facility] | Cornia, Jaswant T, | | | 2017 | Encounter | MED CTR XRAY [address] | DPM [address] | | | | | [place] | [place], [place] | | | | | [place] [address] | [address] | | | | | [phone] | [phone] | | | | | | | [...]
--- OUTSIDE RECORDS SUMMARY | ~2020-04-03 | XMS | Encounter Summary ---
Demographics + + + | Address | [address] | | | [place] [address] | + + + | Home Phone | | + + + | Preferred Language | Unknown | + + + | Marital Status | | + + + | Jehovah'S Witness Affiliation | 1041 | + + + | Race | Unknown | + + + | Ethnic Group | Unknown | + + + Author + + + | Author | [facility] | | | and [place] | + + + | Organization | [facility] | | | and [place] | + + + | Address | Unknown | + + + | Phone | Unavailable | + + + Support + + + + + | Name | Relationship | Address | Phone | + + + + + | Juanita Espinal | ECON | [address] | | | | | [place] | | | | | [phone] | | + + + + + Care Team Providers + +------+ + | Care Plush Finisher Name | Role | Phone | + +------+ + | Hemanth Lima PCP | | | MD | | | + +------+ + Reason for Visit Auth/Cert +--------+--------+ + + + + | Status | Reason | Specialty | Diagnoses / | Referred By | Referred To | | | | | Procedures | Contact | Contact | +--------+--------+ + + + + | | | | Diagnoses | | | | | | | Lumbar | | | | | | | radiculopath | | | | | | | y (M54.16), | | | | | | | Spondylolist | | | | | | | hesis of | | | | | | | lumbar | | | | | | | region | | | | | | | (M43.16), | | | | | | | Lumbar facet | | | | | | | arthropathy | | | | | | | (M12.88), | | | | | | | Foraminal | | | | | | | stenosis of | | | | | | | lumbar | | | | | | | region | | | | | | | (M99.83), | | | | | | | Other | | | | | | | spondylosis, | | | | | | | lumbar | | | | | | | region | | | | | | | (M47.896), | | | | | | | DDD | | | | | | | (degenerativ | | | | | | | e disc | | | | | | | disease), | | | | | | | lumbar | | | | | | | (M51.36), | | | | | | | Lumbar | | | | | | | foraminal | | | | | | | stenosis | | | | | | | (M99.83) | | | | | | | Procedures | | | | | | | [place] ARTHDSIS | | | | | | | POST/POSTERO | | | | | | | LATRL/POSTIN | | | | | | | TERBODY | | | | | | | LUMBAR [place] | | | | | | | SPINE | | | | | | | FUSN,POST | | | | | | | TECH,EA | | | | | | | ADDNL SGMT | | | | | | | [place] SPINE | | | | | | | FUSN,POST | | | | | | | TECH,EA | | | | | | | ADDNL SGMT | | | | | | | [place] SPINE | | | | | | | FUSN,POST | | | | | | | TECH,EA | | | | | | | ADDNL SGMT | | | | | | | [place] LUMBAR | | | | | | | SPINE | | | | | | | FUSION,ANTER | | | | | | | APPRCH [place] | | | | | | | SPINAL | | | | | | | FUSION,ANT,E | | | | | | | A ADNL LEVEL | | | | | | | [place] SPINAL | | | | | | | FUSION,ANT,E | | | | | | | A ADNL LEVEL | | | | | | | POSTERIOR | | | | | | | SEGMENTAL | | | | | | | INSTRUMENTAT | | | | | | | ION 3-6 VRT | | | | | | | SEG | | | | | | | LAMINEC/FACE | | | | | | | TECT/FORAMIN | | | | | | | ,LUMBAR 1 | | | | | | | SEG [place] | | | | | | | LAMINEC/FACE | | | | | | | TECT/FORAMIN | | | | | | | ,EACH ADDNL | | | | | | | [place] | | | | | | | LAMINEC/FACE | | | | | | | TECT/FORAMIN | | | | | | | ,EACH ADDNL | | | | | | | [place] INSJ | | | | | | | BIOMCHN DEV | | | | | | | INTERVERTEBR | | | | | | | AL DSC SPC | | | | | | | W/ARTHRD [place] | | | | | | | INSJ | | | | | | | BIOMCHN DEV | | | | | | | INTERVERTEBR | | | | | | | AL DSC SPC | | | | | | | W/ARTHRD [place] | | | | | | | INSJ | | | | | | | BIOMCHN DEV | | | | | | | INTERVERTEBR | | | | | | | AL DSC SPC | | | | | | | W/ARTHRD [place] | | | | | | | ALLOGRAFT | | | | | | | FOR SPINE | | | | | | | SURGERY ONLY | | | | | | | MORSELIZED | | | | | | | L2-3, L3-4, | | | | | | | L4-5 | | | | | | | Lateral | | | | | | | Anterior | | | | | | | Interbody | | | | | | | Fusion; | | | | | | | L5-S1 | | | | | | | Transforamin | | | | | | | al Lumbar | | | | | | | Interbody | | | | | | | Fusion; | | | | | | | Posterior | | | | | | | Fusion @ | | | | | | | L2-3, L3-4, | | | | | | | L4-5, L5-S1 | | | +--------+--------+ + + + + Encounter Details +--------+ + + + + | Date | Type | Department | Care Team | Description | +--------+ + + + + | 05/26/ | Hospital | [facility] | Edin Lynn MD | Gait abnormality | | 2017 - | Encounter | MED CTR SURGICAL | [address] | (Primary Dx); Atrial | | | | [address] | [place] [address] | fibrillation with | | 06/06/ | | [place] [id number] | [phone] | RVR (HCC); Status | | 2016 | | [phone] | | post lumbar spinal | | | | | | fusion; Anxiety | | | | | | state, unspecified; | | | | | | Delirium due to | | | | | | multiple etiologies; | | | | | | Depression, | | | | | | unspecified | | | | | | depression type | +--------+ + + + + Social [...] + + + | Blood Pressure | 156/78 | 06/06/2017 7:34 AM | | | | | PDT | | + + + + + | Pulse | 67 | 06/06/2017 7:40 AM | | | | | PDT | | + + + + + | Temperature | 36 C (96.8 F) | 06/06/2017 7:34 AM | | | | | PDT | | + + + + + | Respiratory Rate | 16 | 06/06/2017 7:40 AM | | | | | PDT | | + + + + + | Oxygen Saturation | 90% | 06/06/2017 7:40 AM | | | | | PDT | | + + + + + | Inhaled Oxygen | - | - | | | Concentration | | | | + + + + + | Weight | 74.7 kg (164 lb 10.9 | 06/02/2017 3:55 AM | | | | oz) | PDT | | + + + + + | Height | 165.1 cm (5' 5") | 05/26/2017 4:30 PM | | | | | PDT | | + + + + + | Body Mass Index | 27.4 | 05/26/2017 4:30 PM | | | | | PDT [...] + documented as of this encounter Discharge Summaries José Miguel Garcia PA-C - 06/06/2017 8:39 AM PDTFormatting of this note might be diffe rent from the original. DISCHARGE SUMMARY Pt. Name/Age/: Dorothea Debra Calvo 72 y.o. 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 Patient was transferred to PACU and then to the neurosurgical floor. The patient mccann d some cardiac issues and hospitalist was consulted. This now controlled with medications. T he patient mobilized well with physical therapy and occupational therapy. She was started on eliquis for prophylaxis and antibiotics for cellulitis. Appropriate discharge plans were m brady in line with her progress and mobility and she was ultimately discharged to home . Medications Reconciled upon Discharge are: Discharge Medications New Medications Details amiodarone 200 mg tablet Take 1 tablet by mouth 2 times daily. aka: PACERONE amoxicillin 500 MG capsule Take 1 capsule by mouth 2 times daily for 10 days. aka: AMOXIL apixaban 5 mg tablet Take 1 tablet by mouth 2 times daily. aka: ELIQUIS dilTIAZem 120 mg 24 hr capsule Take 1 capsule by mouth Daily. aka: CARDIZEM CD lactulose 10 g/15 mL solution Take 30 mLs by mouth Daily as needed. traMADol 50 mg tablet Take 2 tablets by mouth every 6 hours as needed for Pain. aka: ULTRAM Unchanged Medications Details leflunomide 20 mg tablet Take 20 mg by mouth Daily. aka: ARAVA Magnesium 400 MG Caps Take 1 capsule by mouth Three times a week. metoprolol succinate 100 mg ER tablet Take 100 mg by mouth every morning. aka: TOPROL-XL predniSONE 5 mg tablet Take 5 mg by mouth Daily. aka: DELTASONE sertraline 100 mg tablet Take 100 mg by mouth nightly. aka: ZOLOFT VITAMIN D (CHOLECALCIFEROL) PO Take 100 Units by mouth Daily. Condition on Discharge: Stable Disposition: Patient was discharged to home Follow-Up Plans: Follow-up with: Dr. Lynn's office in 4 weeks Follow-up with primary care physician as needed. Diet: Resume regular diet Activity: Continue to follow guidelines and precautions as previously discussed. Brace: C brace Electronically signed by: José Miguel Garcia, 06/06/2017 8:39 [facility] documented in this encounter Discharge Instructions Instructions José Miguel Garcia PA-C - 06/06/2017Discharge Instructions for Lumbar Fusi on You had a lumbar fusion. During this procedure, your doctor locked together (fused) some of the bones in your spine. This limits the movement of these bones to help relieve your pain. Here s what you need to know about home care following a spinal fusion. Activity Arrange your household to keep the items you need within reach. Remove electrical cords, throw rugs, and anything else that may cause you to fall. Use a walkeror handrails until your balance, flexibility, and strength improve. And re member to ask for help from others when you need it. Free up your hands so that you can use them to keep balance. Use a daniel pack, apron, or pockets to carry things. Be sure not to carry too much at once. Don t bend or twist at the waist, or raise your hands over your head for the first two weeks after your surgery. Don t lift anything heavier than 5 pounds for the first four weeks after surgery. Don t sit for more than30 to 45 minutes at a time. Take frequent short walks. They a re the aguilar to your recovery. As your back feels better please gradually increase the distanc e you walk as discussed with your provider. Don t drive until your doctor says it s OK. And never drive while you are taking opi oid pain medication. Nap if you are tired, but don t stay in bed all day. Use chairs with arms. The arms make it easier for you to stand up and sit down. If you have not yet received instructions about physical therapy, ask your doctor about them. Incision care Check your incision daily for redness, tenderness, or drainage. Don t soak your wound in water (no hot tubs, bathtubs, swimming pools) until your doct or says it s OK. As long as you keep your incision dry you can shower as desired. After 5 days you may le t shower water run over the incision but do not submerse the incision under water until afte r you see your provider. Gently pat the incision dry. Don t rub it, or apply creams or lot ions. And if you feel unsteady while standing to shower, use a shower stool or chair. Other home care Use nonslip bath mats, grab bars, an elevated toilet seat, and a shower chair in your ba throom. Take your medication exactly as directed. Don t take nonsteroidal anti-inflammatory medications (NSAIDs), such as ibuprofen. The y may delay or prevent proper fusion of the spine. If you smoke, stop! This will be one of the most important things you can do to help you recover from surgery. Wear your back brace, if one was prescribed, as directed by your doctor. Follow-up Most patients will be seen approximately 4 weeks after surgery. Be sure to get your 1 mo nth post op x-rays prior to your 1 month post op appointment before your appointment. [id number] [employer]. [address] [place] [address], [place] [address]. All [facility] reserved. This information is not intended [...] + +---------+ + + | amiodarone | Take 1 tablet by | 60 | 0 | 06/06/20 | | | (PACERONE) 200 mg | mouth 2 times daily. | tablet | | 17 | 7 | | tablet | | | | | | + + + +---------+ + + | amoxicillin | Take 1 capsule by | 20 | 0 | 06/06/20 | | | (AMOXIL) 500 MG | mouth 2 times daily | capsule | | 17 | 7 | | capsule | for 10 days. | | | | | + + + +---------+ + + | apixaban (ELIQUIS) | Take 1 tablet by | 60 | 0 | 06/06/20 | | | 5 mg tablet | mouth 2 times daily. | tablet | | 17 | 7 | + + + +---------+ + + | dilTIAZem | Take 1 capsule by | 30 | 0 | 06/06/20 | | | (CARDIZEM CD) 120 mg | mouth Daily. | capsule | | 17 | 7 | | 24 hr capsule | | | | | | + + + +---------+ + + | lactulose 10 g/15 | Take 30 mLs by mouth | 240 mL | 2 | 06/06/20 | | | mL solution | Daily as needed. | | | 17 | 7 | + + + +---------+ + + | leflunomide | Take 20 mg by mouth | | 0 | | | | (ARAVA) 20 mg tablet | Daily. | | | | 7 | + + + +---------+ [...] (ULTRAM) | Take 2 tablets by | 90 | 1 | 06/06/20 | | | 50 mg tablet | mouth every 6 hours | tablet | | 17 | 7 | | | as needed for Pain. | | | | | + + + +---------+ + + documented as of this encounter Progress Notes José Miguel Garcia PA-C - 06/06/2017 8:21 AM PDTFormatting of this note might be diffe rent from the original. [facility] NEUROSURGERY PROGRESS NOTE PATIENT NAME: Dorothea Calvo AGE: 72 y.o. DATE OF SERVICE: 06/06/2017 8:21 S: The patient is improving. Her pain is under control with medication. She is keeping her spirits up working towards rehab. She is voiding well. Passing flatus. She feels comfortable to d/c to SNF once accepted. O: CURRENT MEDICATIONS: Current Facility-Administered Medications Medication Dose Route Frequency Provider Last Rate Last Dose acetaminophen (TYLENOL) tablet 650 mg 650 mg Oral Q4H PRN José Miguel Garcia PA-C 650 mg at 06/04/172003 amiodarone (PACERONE) tablet 400 mg 400 mg Oral BID Yann Au MD 400 mg at 05/17 ampicillin-sulbactam (UNASYN) 3 g in sodium chloride 0.9% 100 mL IVPB 3 g Intravenous 4 times per day Yann Au MD 200 mL/hr at 06/06/17 0628 3 g at 06/06/17 0628 apixaban (ELIQUIS) tablet 5 mg 5 mg Oral BID Isacc Saers MD 5 mg at 06/05/17 2 131 bisacodyl (DULCOLAX) suppository 10 mg 10 mg Rectal Daily PRN SHAUN Vasquez calcium carbonate (TUMS) chewable tablet 1,000 mg 1,000 mg Oral Q2H PRN José Miguel Garcia PA-C dilTIAZem (CARDIZEM CD) 24 hr capsule 120 mg 120 mg Oral Daily Yann Au MD 120 mg at 06/05/17 0903 diphenhydrAMINE (BENADRYL) injection 12.5 mg 12.5 mg Intravenous Q4H PRN José Miguel Garcia PA-C Or diphenhydrAMINE (BENADRYL) tablet 25 mg 25 mg Oral Q4H PRN José Miguel Garcia PA-C 25 mg at 05/28/17 0205 Or diphenhydrAMINE (BENADRYL) 12.5 mg/5 mL liquid 25 mg 25 mg Oral Q4H PRN José Miguel Garcia PA-C docusate sodium (COLACE) capsule 100 mg 100 mg Oral BID José Miguel Garcia PA-C 1 00 mg at 06/05/17 0903 enalaprilat (VASOTEC) injection 1.25 mg 1.25 mg Intravenous Q6H PRN José Miguel martinez PA-C 1.25 mg at 05/26/17 1859 HYDROmorphone (DILAUDID) injection 0.25-0.5 mg 0.25-0.5 mg Intravenous Q1H PRN Yann Au MD 0.5 mg at 05/29/17 0147 labetalol (TRANDATE) 5 mg/mL injection 10 mg 10 mg Intravenous Q10 Min PRN José Miguel Roman PA-C 10 mg at 05/26/17 1813 lactulose liquid 30 mL 30 mL Oral Daily PRN José Miguel Garcia PA-C magnesium hydroxide (MILK OF MAGNESIA) 400 mg/5 mL suspension 30 mL 30 mL Oral BID PRN José Miguel Garcia PA-C 30 mL at 05/28/17 0038 magnesium oxide (MAG-OX) tablet 400 mg 400 mg Oral Daily Garrison Resendiz DO 400 mg at 06/05/17 0903 menthol (HALLS COUGH DROP) lozenge 1 lozenge 1 lozenge Buccal Q2H PRN José Miguel leblanc PA-C metoclopramide (REGLAN) 5 mg/mL injection 10 mg 10 mg Intravenous Q6H PRN SHAUN Lea 10 mg at 05/26/17 1829 metoclopramide (REGLAN) tablet 10 mg 10 mg Oral Q4H PRN José Miguel Garcia PA-C OLANZapine zydis (zyPREXA ZYDIS) disintegrating tablet 5 mg 5 mg Oral Nightly Jarad Montes MD 5 mg at 06/05/17 2131 ondansetron (ZOFRAN ODT) disintegrating tablet 4 mg 4 mg Oral Q6H PRN José Miguel leblanc PA-C ondansetron (ZOFRAN) injection 4 mg 4 mg Intravenous Q6H PRN SELIN Vasquez 4 mg at 05/29/17 1218 phenol (CHLORASEPTIC) spray 1-2 spray 1-2 spray Mouth/Throat Q3H PRN José Miguel chang PA-C polyethylene glycol (MIRALAX) powder 17 g 17 g Oral Daily José Miguel Garcia PA-C 17 g at 06/01/17 0858 predniSONE (DELTASONE) tablet 10 mg 10 mg Oral Daily Yann Au MD 10 mg at 05/17 12/02 0903 prochlorperazine (COMPAZINE) injection 10 mg 10 mg Intravenous Q6H PRN SHAUN Marrero 10 mg at 05/27/17 0607 prochlorperazine (COMPAZINE) tablet 5 mg 5 mg Oral Q6H PRN José Miguel Garcia PA-C promethazine (PHENERGAN) tablet 12.5-25 mg 12.5-25 mg Oral Q6H PRN Edin Lynn MD Or promethazine (PHENERGAN) (IV ONLY) injection 6.25 mg 6.25 mg Intravenous Q6H PRN Edin Lynn MD 6.25 mg at 05/27/17 0755 Or promethazine (PHENERGAN) (IM ONLY) injection 6.25 mg 6.25 mg Intramuscular Q6H PRN Darrick Lynn MD Or promethazine (PHENERGAN) suppository 12.5-25 mg 12.5-25 mg Rectal Q6H PRN Edin Lynn MD saliva substitute (BIOTENE ORALBALANCE DRY MOUTH) gel GEL Mouth/Throat Q30 Min PRN Lexi Montes MD senna (SENOKOT) tablet 8.6 mg 8.6 mg Oral BID PRN José Miguel Garcia PA-C 8.6 mg at 05/28/17 0038 sertraline (ZOLOFT) tablet 100 mg 100 mg Oral Nightly José Miguel Garcia PA-C 100 mg at 06/05/17 2131 traMADol (ULTRAM) tablet 100 mg 100 mg Oral Q6H PRN Yann Au MD 100 mg at 05/17 01/02 0656 ALLERGIES: Allergies Allergen Reactions Adhesive & Tape Other (See Comments) Blisters where tape & bandages Uncoded Nonscreenable Allergen Nausea And Vomiting Problems related to anesthetic when waking up Codeine Rash Nabumetone Diarrhea PHYSICAL EXAMINATION: Temp: [36 C (96.8 F)-36.5 C (97.7 F)] 36 C (96.8 F) Pulse: [66-80] 66 Resp: [16-20] 17 BP: (138-156)/(71-78) 156/78 Intake/Output Summary (Last 24 hours) at 06/06/17 0821 Last data filed at 06/06/17 0731 Gross per 24 hour Intake 1760 ml Output 2350 ml Net -590 ml GENERAL: Dorothea Calvo is in no acute distress with unlabored respirations. HEENT: HEAD/FACE: EYES: Normocephalic and atraumatic. Small lump on scalp. No Blood Normal sclerae without icterus. CHEST: Clear. HEART: Regular by palpation, normal rate EXTREMITIES: No edema or swelling. SCD's BACK: The back incisions are dressed. NEUROLOGICAL EXAM: MENTAL STATUS: The patient is awake, alert, and oriented x 2. She follows simple commands. She speech is fluent, her comprehends speech well, and her repeats well. She has no apparent deficits with short or nursing home memory. MOTOR EXAM: Motor strength is stable 4+/5 R DF and HF SENSORY EXAM: Sensory exam is stable 24 HOUR LABS: All Component Based Labs None ASSESSMENT: NEUROSURGICAL DIAGNOSES: S/p lumbar fusion A Fib Mental status changes improved HOSPITAL/GENERAL DIAGNOSES: Past Medical History: Diagnosis Date Acute pansinusitis Atrial fibrillation ([facility]) 08-18-2016 Atypical chest pain Bilateral leg pain Contusion of knee with skin surface intact Right Anterior COPD (chronic obstructive pulmonary disease) ([facility]) Hyperlipoproteinemia type Li-a Impacted cerumen of right ear Low back pain Lumbar foraminal stenosis 08/13/2016 Lumbar herniated disc L1/T2 Left Lumbar neuritis L3-L4, L4-L5, L5/S1 Lumbar spondylosis Lumbar stenosis Moderate major depression, single episode ([facility]) Neoplasm of uncertain behavior of skin PONV (postoperative nausea and vomiting) projectile vomitting waking up after surgery Primary localized osteoarthritis of left hip Rheumatoid arthritis involving multiple sites ([facility]) Sacroiliac pain Spinal stenosis, lumbar Lumbar canal with neurogenic claudication Spondylolisthesis of lumbar region L3/L4, L4/L5 TB (tuberculosis) Thoracic neuritis T1-T2 PLAN: S/p lumbar fusion, Hospital day 11 - Neurologically stable and pain control is appropriate. - Metabolic encephalopathy in the setting of altered mental status, increasing confusion an d agitation and treated with frequent staff checks, family at bedside, and stopping several medications.Metabolic encephalopathy in the setting of altered mental status, improved - Afib with tachycardia - improved with amiodarone, diltiazem, appreciate medicine service help - Mobilize, PT/OT - SCD's. - Working on BM/bowel function. Encouraged activity and medications to assist - Disp: Neurologically stable. Plan for d/c home today with outpatient therapy for follow u p. ELECTRONICALLY SIGNED BY: José Miguel Garcia PA-C, 06/06/2017 8:21 eamy, Jarad Marroquin MD - 06/05/2017 1:4 9 PM PDT [facility] H[facility]ITAL[facility] PROGRESS NOTE Patient: Dorothea Calvo : 1945: Age: 72 y.o. MedRec: [id number] PCP: Hemanth Lima MD Admission date: 05/26/2017 Hospital day # : 10 Physician author: Jarad Montes MD Today: 06/05/2017 Allergies: Allergies Allergen Reactions Adhesive & Tape Other (See Comments) Blisters where tape & bandages Uncoded Nonscreenable Allergen Nausea And Vomiting Problems related to anesthetic when waking up Codeine Rash Nabumetone Diarrhea Current Medications: Current Facility-Administered Medications Medication Dose Route Frequency Provider Last Rate Last Dose acetaminophen (TYLENOL) tablet 650 mg 650 mg Oral Q4H PRN José Miguel Garcia PA-C 650 mg at 06/04/172003 amiodarone (PACERONE) tablet 400 mg 400 mg Oral BID Yann Au MD 400 mg at 05/17 12/02 0902 ampicillin-sulbactam (UNASYN) 3 g in sodium chloride 0.9% 100 mL IVPB 3 g Intravenous 4 times per day Yann Au MD 200 mL/hr at 06/05/17 0532 3 g at 06/05/17 0532 apixaban (ELIQUIS) tablet 5 mg 5 mg Oral BID Isacc Sears MD 5 mg at 06/05/17 0 903 bisacodyl (DULCOLAX) suppository 10 mg 10 mg Rectal Daily PRN SHAUN Vasquez calcium carbonate (TUMS) chewable tablet 1,000 mg 1,000 mg Oral Q2H PRN José Miguel Garcia PA-C dilTIAZem (CARDIZEM CD) 24 hr capsule 120 mg 120 mg Oral Daily Yann Au MD 120 mg at 06/05/17 0903 diphenhydrAMINE (BENADRYL) injection 12.5 mg 12.5 mg Intravenous Q4H PRN José Miguel Garcia PA-C Or diphenhydrAMINE (BENADRYL) tablet 25 mg 25 mg Oral Q4H PRN José Miguel Garcia PA-C 25 mg at 05/28/17 0205 Or diphenhydrAMINE (BENADRYL) 12.5 mg/5 mL liquid 25 mg 25 mg Oral Q4H PRN José Miguel Garcia PA-C docusate sodium (COLACE) capsule 100 mg 100 mg Oral BID José Miguel Garcia PA-C 1 00 mg at 06/05/17 0903 enalaprilat (VASOTEC) injection 1.25 mg 1.25 mg Intravenous Q6H PRN José Miguel martinez PA-C 1.25 mg at 05/26/17 1859 HYDROmorphone (DILAUDID) injection 0.25-0.5 mg 0.25-0.5 mg Intravenous Q1H PRN Yann Au MD 0.5 mg at 05/29/17 0147 labetalol (TRANDATE) 5 mg/mL injection 10 mg 10 mg Intravenous Q10 Min PRN José Miguel Roman PA-C 10 mg at 05/26/17 1813 lactulose liquid 30 mL 30 mL Oral Daily PRN José Miguel Garcia PA-C magnesium hydroxide (MILK OF MAGNESIA) 400 mg/5 mL suspension 30 mL 30 mL Oral BID PRN José Miguel Garcia PA-C 30 mL at 05/28/17 0038 magnesium oxide (MAG-OX) tablet 400 mg 400 mg Oral Daily Garrison Resendiz DO 400 mg at 06/05/17 0903 menthol (HALLS COUGH DROP) lozenge 1 lozenge 1 lozenge Buccal Q2H PRN José Miguel leblanc PA-C metoclopramide (REGLAN) 5 mg/mL injection 10 mg 10 mg Intravenous Q6H PRN SHAUN Lea 10 mg at 05/26/17 182 metoclopramide (REGLAN) tablet 10 mg 10 mg Oral Q4H PRN José Miguel Garcia PA-C OLANZapine zydis (zyPREXA ZYDIS) disintegrating tablet 5 mg 5 mg Oral Nightly Jarad Montes MD 5 mg at 06/04/172001 ondansetron (ZOFRAN ODT) disintegrating tablet 4 mg 4 mg Oral Q6H PRN José Miguel leblanc PA-C ondansetron (ZOFRAN) injection 4 mg 4 mg Intravenous Q6H PRN SELIN Vasquez 4 mg at 05/29/17 1218 phenol (CHLORASEPTIC) spray 1-2 spray 1-2 spray Mouth/Throat Q3H PRN José Miguel chang PA-C polyethylene glycol (MIRALAX) powder 17 g 17 g Oral Daily José Miguel Garcia PA-C 17 g at 06/01/17 0858 predniSONE (DELTASONE) tablet 10 mg 10 mg Oral Daily Yann Au MD 10 mg at 05/17 12/02 0903 prochlorperazine (COMPAZINE) injection 10 mg 10 mg Intravenous Q6H PRN SHAUN Marrero 10 mg at 05/27/17 0607 prochlorperazine (COMPAZINE) tablet 5 mg 5 mg Oral Q6H PRN José Miguel Garcia PA-C promethazine (PHENERGAN) tablet 12.5-25 mg 12.5-25 mg Oral Q6H PRN Edin Lynn MD Or promethazine (PHENERGAN) (IV ONLY) injection 6.25 mg 6.25 mg Intravenous Q6H PRN Edin Lynn MD 6.25 mg at 05/27/17 0755 Or promethazine (PHENERGAN) (IM ONLY) injection 6.25 mg 6.25 mg Intramuscular Q6H PRN Darrick Lynn MD Or promethazine (PHENERGAN) suppository 12.5-25 mg 12.5-25 mg Rectal Q6H PRN Edin Lynn MD saliva substitute (BIOTENE ORALBALANCE DRY MOUTH) gel GEL Mouth/Throat Q30 Min PRN Lexi Montes MD senna (SENOKOT) tablet 8.6 mg 8.6 mg Oral BID PRN José Miguel Garcia PA-C 8.6 mg at 05/28/17 0038 sertraline (ZOLOFT) tablet 100 mg 100 mg Oral Nightly José Miguel Garcia PA-C 100 mg at 06/04/172000 traMADol (ULTRAM) tablet 100 mg 100 mg Oral Q6H PRN Yann Au MD 100 mg at 05/17 12/02 0559 Current Infusions: Objective Data Hematology and anemia Recent Labs Lab 05/30/17 033 WBC 10.9 HGB 9.7* HCT 28.8* PLT 177 NEUPCT 70.7 MONPCT 11.1 No results for input(s): PROTIME, INR, PTT in the last 168 hours. Recent Labs Lab 05/30/17 033 TSH 2.37 Inflammatory markers No results for input(s): LACTATE, PROCALCITONI, CRP, ESR in the last 168 hours. Chemistry Recent Labs Lab 06/05/17 0601 06/04/17 0604 06/03/17 0526 05/30/17 033 GLU 103 110* 106 < > 126* NA 142 136 138 < > 133* K 3.4* 3.3* 3.7 < > 4.1 CL 106 100 101 < > 102 CO2 29 28 29 < > 26 ANIONGAP 7 8 8 < > 5 BUN 7 4* 8 < > 12 CREA 0.66 0.52* 0.54* < > 0.46* GFRNONAA >60 >60 >60 < > >60 CALCIUM 8.4 8.0* 8.2* < > 8.1* ALBUMIN -- -- -- -- 2.5* TOTALPROTEIN -- -- -- -- 6.0 BILITOT -- -- -- -- 0.8 ALKPHOS -- -- -- -- 100 ALT -- -- -- -- 52* AST -- -- -- -- 66* < > = values in this interval not displayed. Recent Labs Lab 05/31/17 2303 MG 1.8 No results for input(s): AMYLASE, LIPASE in the last 168 hours. No results for input(s): TRIG, CHOL, HDL, LDL in the last 168 hours. No results for input(s): AMMONIA in the last 168 hours. Cardiology & Digoxin Recent Labs Lab 06/02/17 0341 06/01/17 0346 BNP 162* 423* ABG No results for input(s): PHART, PO2ART, GAD4VFR, UWY8GRC, BEART, L1ILRDRI in the last 168 h ours. No results for input(s): SPECSOURCE, PHPOCB, PCO2, PO2, HCO3, TCO2, BEART, PCVT1VBC in the last 168 hours. Drug of overdose and abuse No results for input(s): ALCOHOL, ACTMN, SALICYLATE in the last 168 hours. No results for input(s): AMPHEQUAL, BARBITURATE, BENZSCR, CANNIBSCR, AMPHETAMINE, METHADSCR , OPIATESCR in the last 168 hours. Urinalysis Recent Labs Lab 06/04/171940 GLUCOSEU Negative WBCUA 2-5* RBCUA 0-2 SQUAMEPIUA 25-50* BACTERIAUA Negative Point of care glucose No results for input(s): POCGLU in the last 168 hours. Micro results (more choices using dot micro) Microbiology Results (72 hrs) No results found for the last 72 hours. Radiology results (more choices using dot risresults) Xr Hip Right 2-3 Views Result Date: 06/04/2017 RIGHT HIP AND PELVIS: 06/04/2017 1:16 PM CLINICAL HISTORY: Right hip/groin pain COMPARISON: None FINDINGS: AP view the pelvis and frog leg view of the right hip. No fracture or focal b karen destructive change. Femoral acetabular relationships are within normal limits. Mild join t space narrowing, similar to the left. Mild sclerosis of the subchondral bone of the acetab ulum. Small joint marginal osteophytes on the humeral head. Mild narrowing and sclerosis of the sacroiliac joints bilaterally. Symphysis pubis is unremarkable. Lower lumbar fusion nice ges are present. Iliac and femoral artery vascular calcifications. No other soft tissue abno rmalities. IMPRESSION - 1. 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 No radiographic changes to suggest fracture, but if mechanism injury or clinical signs suggest fracture, further evaluation with advanced imaging could be performed to assess for radiographically occult fracture. Dictated and Signed by: Edi Cotto MD Electronically signed: 06/04/2017 2:10 PM Serial weights: Filed Weights: 05/26/17 0622 05/26/17 1630 05/27/17 2344 05/29/17 0135 Weight: 72.1 kg (159 lb) 72.1 kg (159 lb) 75.7 kg (166 lb 14.2 oz) 81.2 kg (179 lb 0.2 oz) 05/30/17 0400 05/31/17 0500 06/02/17 0355 Weight: 81.5 kg (179 lb 10.8 oz) 75 kg (165 lb 5.5 oz) 74.7 kg (164 lb 10.9 oz) Most recent weight: Input and output 2 shifts and 3 shifts: Wt Readings from Last 1 Encounters: 06/02/17 74.7 kg (164 lb 10.9 oz) I/O last 24 Hours: In: 2190 [P.O.:1990; IV Piggyback:200] Out: 1650 [Urine:1650] I/O last 3 completed shifts: In: 2790 [P.O.:2590; IV Piggyback:200] Out: 2450 [Urine:2450] Vitals Ranges: Temp: [36.2 C (97.2 F)-36.9 C (98.4 F)] 36.3 C (97.3 F) Pulse: [64-102] 70 Resp: [18-20] 18 BP: (138-174)/(60-72) 150/67 Vitals: Temp: 36.3 C (97.3 F) BP: 150/67 Pulse: 70 Resp: 18 SpO2: 95 % SpO2 95 % on nasal cannula at flow rate 2L/min (dot meyvdiogo) Subjective CC Admit May [address] Lynn, complicated by A fib with RVR and delerium She says is eating better Says won't go to [place] (says if not [facility] rehab then home with family support) No N/V constipation Discussed hip xray. She says that "Dr France" talked to her about her hip area pain earlier UA negative (2-5 WBC considered negative) ROS See above Exam General Alert NAD Cardiac RRR / sys and tele reviewed earlier still has PAF but overall decent control Extremities Lung Clear and not labored Abdominal + BS soft NT under the brace Neuro alert and fluent (dot meyexam) Assessment and Hospital Course (dot meyprob vs meyprobap) Active Hospital Problems Diagnosis Atrial fibrillation with RVR This morning in [place], has had Amiodarone load Dr Roberts consulting (he signed off on ) and says will followup in 2-4 weeks Is on Apixaban Amiodarone oral 400 mg bid started on the On should drop the amiodarone to 200 mg po daily still PAF on tele overall acceptable Echo this admit EF 70 percent, mild valve disease, was not fluid overloaded on the Status post lumbar spinal fusion May 26 Dr Lynn Right hip/groin pain on possibly related to lumbar sgy but will xray right hip hip xray no fracture yes DJD Chronic Prednisone use (presume for her RA) 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 Left arm IV site swelling (thrombus) Dr Hall saw her and felt it was resolving (after sp ontaneous draining) does recommend warm compresses and antibiotics for several days Acute metabolic encephalopathy Depression, unspecified depression type Anxiety state, unspecified Delirium due to multiple etiologies Zyprexa had helped and Montes restarting on at 9 pm low dose 5 mg Tele Psych consult on (patient has developed cognitive deficits over the pasty year an d delerium here) with recommend Zyprexa low dose (seroquel other option less cardiac effects ) is improved but impulsive, She says PCP is Dr Lima in [place] Resolved Hospital Problems Diagnosis No resolved problems to display. (dot meyaddendum tdnorefesh nownorefresh) (dot meyvent) (dot malnutattest is attestation for malnutrition) Plan Placement vs home pending Tele ended (dot meyaddendum tdnorefesh nownorefresh) (dot meytime meycritical meysign) Jarad Montes MD 06/05/2017 13:50 [facility] Reference. This is NOT part of the patient's formal assessment section. In the assessment or plan section of notes the author may date some of the subsections with a number such as "" or "" to indicate the date of that entry or event. In the example below the 1st line is the original entry and the subsequent lines indicate flowing updates to the subsection: Example assessment subsection (such as CHF or CP or Pneumonia) Patient is improved today with resolution of symptoms Worse with recurrence of symptoms requiring further testing Portions of this chart may have been created with Send[employer] voice recognition software. Occasi onal wrong-word or sound-alike substitutions may have occurred due to the inherent munson itations of voice recognition software. Please read the chart carefully and recognize, using context, where these substitutions have occurred Jeffry Arevalo PA-C - 06/05/2017 7:39 AM PDT [facility] NEUROSURGERY PROGRESS NOTE PATIENT NAME: Dorothea Calvo AGE: 72 y.o. DATE OF SERVICE: 06/05/2017 7:39 S: The patient did better yesterday. Pain is reasonably controlled. We have [facility]. The patient has been voiding and is passing flatus. O: CURRENT MEDICATIONS: Current Facility-Administered Medications Medication Dose Route Frequency Provider Last Rate Last Dose acetaminophen (TYLENOL) tablet 650 mg 650 mg Oral Q4H PRN José Miguel Garcia PA-C 650 mg at 06/04/172003 amiodarone (PACERONE) tablet 400 mg 400 mg Oral BID Yann Au MD 400 mg at 05/17 ampicillin-sulbactam (UNASYN) 3 g in sodium chloride 0.9% 100 mL IVPB 3 g Intravenous 4 times per day Yann Au MD 200 mL/hr at 06/05/17 0532 3 g at 06/05/17 0532 apixaban (ELIQUIS) tablet 5 mg 5 mg Oral BID Isacc Sears MD 5 mg at 06/04/17 2 001 bisacodyl (DULCOLAX) suppository 10 mg 10 mg Rectal Daily PRN SHAUN Vasquez calcium carbonate (TUMS) chewable tablet 1,000 mg 1,000 mg Oral Q2H PRN José Miguel Garcia PA-C dilTIAZem (CARDIZEM CD) 24 hr capsule 120 mg 120 mg Oral Daily Yann Au MD 120 mg at 06/04/17 0957 diphenhydrAMINE (BENADRYL) injection 12.5 mg 12.5 mg Intravenous Q4H PRN José Miguel Garcia PA-C Or diphenhydrAMINE (BENADRYL) tablet 25 mg 25 mg Oral Q4H PRN José Miguel Garcia PA-C 25 mg at 05/28/17 0205 Or diphenhydrAMINE (BENADRYL) 12.5 mg/5 mL liquid 25 mg 25 mg Oral Q4H PRN José Miguel Garcia PA-C docusate sodium (COLACE) capsule 100 mg 100 mg Oral BID José Miguel Garcia PA-C 1 00 mg at 06/03/17 0908 enalaprilat (VASOTEC) injection 1.25 mg 1.25 mg Intravenous Q6H PRN José Miguel martinez PA-C 1.25 mg at 05/26/17 1859 HYDROmorphone (DILAUDID) injection 0.25-0.5 mg 0.25-0.5 mg Intravenous Q1H PRN Yann Au MD 0.5 mg at 05/29/17 0147 labetalol (TRANDATE) 5 mg/mL injection 10 mg 10 mg Intravenous Q10 Min PRN José Miguel Roman PA-C 10 mg at 05/26/17 1813 lactulose liquid 30 mL 30 mL Oral Daily PRN José Miguel Garcia PA-C magnesium hydroxide (MILK OF MAGNESIA) 400 mg/5 mL suspension 30 mL 30 mL Oral BID PRN José Miguel Garcia PA-C 30 mL at 05/28/17 0038 magnesium oxide (MAG-OX) tablet 400 mg 400 mg Oral Daily Garrisonla nena Resendiz DO 400 mg at 06/04/17 0957 menthol (HALLS COUGH DROP) lozenge 1 lozenge 1 lozenge Buccal Q2H PRN José Miguel leblanc PA-C metoclopramide (REGLAN) 5 mg/mL injection 10 mg 10 mg Intravenous Q6H PRN SHAUN Lea 10 mg at 05/26/17 182 metoclopramide (REGLAN) tablet 10 mg 10 mg Oral Q4H PRN José Miguel Garcia PA-C OLANZapine zydis (zyPREXA ZYDIS) disintegrating tablet 5 mg 5 mg Oral Nightly Jarad Montes MD 5 mg at 06/04/172001 ondansetron (ZOFRAN ODT) disintegrating tablet 4 mg 4 mg Oral Q6H PRN José Miguel leblanc PA-C ondansetron (ZOFRAN) injection 4 mg 4 mg Intravenous Q6H PRN SELIN Vasquez 4 mg at 05/29/17 1218 phenol (CHLORASEPTIC) spray 1-2 spray 1-2 spray Mouth/Throat Q3H PRN José Miguel chang PA-C polyethylene glycol (MIRALAX) powder 17 g 17 g Oral Daily José Miguel Garcia PA-C 17 g at 06/01/17 0858 predniSONE (DELTASONE) tablet 10 mg 10 mg Oral Daily Yann Au MD 10 mg at 05/17 0957 prochlorperazine (COMPAZINE) injection 10 mg 10 mg Intravenous Q6H PRN SHAUN Marrero 10 mg at 05/27/17 0607 prochlorperazine (COMPAZINE) tablet 5 mg 5 mg Oral Q6H PRN José Miguel Garcia PA-C promethazine (PHENERGAN) tablet 12.5-25 mg 12.5-25 mg Oral Q6H PRN Edin Lynn MD Or promethazine (PHENERGAN) (IV ONLY) injection 6.25 mg 6.25 mg Intravenous Q6H PRN Edin Lynn MD 6.25 mg at 05/27/17 0755 Or promethazine (PHENERGAN) (IM ONLY) injection 6.25 mg 6.25 mg Intramuscular Q6H PRN Darrick Lynn MD Or promethazine (PHENERGAN) suppository 12.5-25 mg 12.5-25 mg Rectal Q6H PRN Edin Lynn MD saliva substitute (BIOTENE ORALBALANCE DRY MOUTH) gel GEL Mouth/Throat Q30 Min PRN Lexi Montes MD senna (SENOKOT) tablet 8.6 mg 8.6 mg Oral BID PRN José Miguel Garcia PA-C 8.6 mg at 05/28/17 0038 sertraline (ZOLOFT) tablet 100 mg 100 mg Oral Nightly José Miguel Garcia PA-C 100 mg at 06/04/172000 traMADol (ULTRAM) tablet 100 mg 100 mg Oral Q6H PRN Yann Au MD 100 mg at 05/17 12/02 0559 ALLERGIES: Allergies Allergen Reactions Adhesive & Tape Other (See Comments) Blisters where tape & bandages Uncoded Nonscreenable Allergen Nausea And Vomiting Problems related to anesthetic when waking up Codeine Rash Nabumetone Diarrhea PHYSICAL EXAMINATION: Temp: [36 C (96.8 F)-37 C (98.6 F)] 36.3 C (97.3 F) Pulse: [64-102] 70 Resp: [16-20] 18 BP: (138-183)/(60-72) 138/60 Intake/Output Summary (Last 24 hours) at 06/05/17 0739 Last data filed at 06/05/17 0532 Gross per 24 hour Intake 2190 ml Output 1650 ml Net 540 ml GENERAL: Dorothea Calvo is in no acute distress with unlabored respirations. HEENT: HEAD/FACE: EYES: Normocephalic and atraumatic. Small lump on scalp. No Blood Normal sclerae without icterus. CHEST: Clear. HEART: Regular by palpation, normal rate EXTREMITIES: No edema or swelling. SCD's BACK: The back incisions are dressed. NEUROLOGICAL EXAM: MENTAL STATUS: The patient is awake, alert, and oriented x 2. She follows simple commands. She speech is fluent, her comprehends speech well, and her repeats well. She has no apparent deficits with short or manager long term care memory. MOTOR EXAM: Motor strength is stable 4+/5 R DF and HF SENSORY EXAM: Sensory exam is stable 24 HOUR LABS: All Component Based Labs None ASSESSMENT: NEUROSURGICAL DIAGNOSES: S/p lumbar fusion A Fib Mental status changes improved HOSPITAL/GENERAL DIAGNOSES: Past Medical History: Diagnosis Date Acute pansinusitis Atrial fibrillation ([facility]) 08-18-2016 Atypical chest pain Bilateral leg pain Contusion of knee with skin surface intact Right Anterior COPD (chronic obstructive pulmonary disease) ([facility]) Hyperlipoproteinemia type Li-a Impacted cerumen of right ear Low back pain Lumbar foraminal stenosis 08/13/2016 Lumbar herniated disc L1/T2 Left Lumbar neuritis L3-L4, L4-L5, L5/S1 Lumbar spondylosis Lumbar stenosis Moderate major depression, single episode ([facility]) Neoplasm of uncertain behavior of skin PONV (postoperative nausea and vomiting) projectile vomitting waking up after surgery Primary localized osteoarthritis of left hip Rheumatoid arthritis involving multiple sites (HCC) Sacroiliac pain Spinal stenosis, lumbar Lumbar canal with neurogenic claudication Spondylolisthesis of lumbar region L3/L4, L4/L5 TB (tuberculosis) Thoracic neuritis T1-T2 PLAN: S/p lumbar fusion, Hospital day 10 - Neurologically stable and pain control is appropriate. - Metabolic encephalopathy in the setting of altered mental status, increasing confusion an d agitation and treated with frequent staff checks, family at bedside, and stopping several medications.Metabolic encephalopathy in the setting of altered mental status, iimproved - Afib with tachycardia - improved with amiodarone, diltiazem, appreciate medicine service help - Mobilize, PT/OT - SCD's - Working on BM/bowel function. Encouraged activity and medications to assist - Disp: stable from our standpoint.. Consider local SNF rehab or Inpatient rehab today or tomorrow ELECTRONICALLY SIGNED BY: Jeffry France PA-C, 06/05/2017 7:39 José Miguel Gusman PA-C - 06/04/2017 4:10 PM [facility] called and spoke with SHAWN Herzog. She is worried the patient may have a UTI that is causing this new altered mental status. She has been working with Dorothea for adriana e time in the hospital and noticed a shift in the way she acts. Dorothea is forgetting her p recautions and acting restless. I will order a UA for evaluation. Jarad Strange MD - 06/04/2017 12:33 P M PDT [place] HOSPITALIST PROGRESS NOTE Patient: Dorothea Calvo : 1945: Age: 72 y.o. MedRec: [id number] PCP: Hemanth Lima MD Admission date: 05/26/2017 Hospital day # : 9 Physician author: Jarad Montes MD Today: 06/04/2017 Allergies: Allergies Allergen Reactions Adhesive & Tape Other (See Comments) Blisters where tape & bandages Uncoded Nonscreenable Allergen Nausea And Vomiting Problems related to anesthetic when waking up Codeine Rash Nabumetone Diarrhea Current Medications: Current Facility-Administered Medications Medication Dose Route Frequency Provider Last Rate Last Dose acetaminophen (TYLENOL) tablet 650 mg 650 mg Oral Q4H PRN José Miguel Garcia PA-C 650 mg at 06/03/17 1540 amiodarone (PACERONE) tablet 400 mg 400 mg Oral BID Yann Au MD 400 mg at 05/17 0956 ampicillin-sulbactam (UNASYN) 3 g in sodium chloride 0.9% 100 mL IVPB 3 g Intravenous 4 times per day Yann Au MD 200 mL/hr at 06/04/17 0535 3 g at 06/04/17 0535 apixaban (ELIQUIS) tablet 5 mg 5 mg Oral BID Isacc Sears MD 5 mg at 06/04/17 0 957 bisacodyl (DULCOLAX) suppository 10 mg 10 mg Rectal Daily PRN SHAUN Vasquez calcium carbonate (TUMS) chewable tablet 1,000 mg 1,000 mg Oral Q2H PRN José Miguel Garcia PA-C dilTIAZem (CARDIZEM CD) 24 hr capsule 120 mg 120 mg Oral Daily Yann Au MD 120 mg at 06/04/17 0957 diphenhydrAMINE (BENADRYL) injection 12.5 mg 12.5 mg Intravenous Q4H PRN José Miguel Garcia PA-C Or diphenhydrAMINE (BENADRYL) tablet 25 mg 25 mg Oral Q4H PRN José Miguel Garcia PA-C 25 mg at 05/28/17 0205 Or diphenhydrAMINE (BENADRYL) 12.5 mg/5 mL liquid 25 mg 25 mg Oral Q4H PRN José Miguel Garcia PA-C docusate sodium (COLACE) capsule 100 mg 100 mg Oral BID José Miguel Garcia PA-C 1 00 mg at 06/03/17 0908 enalaprilat (VASOTEC) injection 1.25 mg 1.25 mg Intravenous Q6H PRN José Miguel martinez PA-C 1.25 mg at 05/26/17 1859 HYDROmorphone (DILAUDID) injection 0.25-0.5 mg 0.25-0.5 mg Intravenous Q1H PRN Yann Au MD 0.5 mg at 05/29/17 0147 labetalol (TRANDATE) 5 mg/mL injection 10 mg 10 mg Intravenous Q10 Min PRN José Miguel Roman PA-C 10 mg at 05/26/17 1813 lactulose liquid 30 mL 30 mL Oral Daily PRN José Miguel Garcia PA-C magnesium hydroxide (MILK OF MAGNESIA) 400 mg/5 mL suspension 30 mL 30 mL Oral BID PRN José Miguel Garcia PA-C 30 mL at 05/28/17 0038 magnesium oxide (MAG-OX) tablet 400 mg 400 mg Oral Daily Garrison Resendiz DO 400 mg at 06/04/17 0957 menthol (HALLS COUGH DROP) lozenge 1 lozenge 1 lozenge Buccal Q2H PRN José Miguel leblanc PA-C metoclopramide (REGLAN) 5 mg/mL injection 10 mg 10 mg Intravenous Q6H PRN SHAUN Lea 10 mg at 05/26/17 1829 metoclopramide (REGLAN) tablet 10 mg 10 mg Oral Q4H PRN José Miguel Garcia PA-C OLANZapine zydis (zyPREXA ZYDIS) disintegrating tablet 5 mg 5 mg Oral Nightly Jarad Montes MD 5 mg at 06/03/17 2046 ondansetron (ZOFRAN ODT) disintegrating tablet 4 mg 4 mg Oral Q6H PRN José Miguel leblanc PA-C ondansetron (ZOFRAN) injection 4 mg 4 mg Intravenous Q6H PRN SELIN Vasquez 4 mg at 05/29/17 1218 phenol (CHLORASEPTIC) spray 1-2 spray 1-2 spray Mouth/Throat Q3H PRN José Miguel chang PA-C polyethylene glycol (MIRALAX) powder 17 g 17 g Oral Daily José Miguel Garcia PA-C 17 g at 06/01/17 0858 predniSONE (DELTASONE) tablet 10 mg 10 mg Oral Daily Yann Au MD 10 mg at 05/17 0957 prochlorperazine (COMPAZINE) injection 10 mg 10 mg Intravenous Q6H PRN SHAUN Marrero 10 mg at 05/27/17 0607 prochlorperazine (COMPAZINE) tablet 5 mg 5 mg Oral Q6H PRN José Miguel Garcia PA-C promethazine (PHENERGAN) tablet 12.5-25 mg 12.5-25 mg Oral Q6H PRN Edin Lynn MD Or promethazine (PHENERGAN) (IV ONLY) injection 6.25 mg 6.25 mg Intravenous Q6H PRN Edin Lynn MD 6.25 mg at 05/27/17 0755 Or promethazine (PHENERGAN) (IM ONLY) injection 6.25 mg 6.25 mg Intramuscular Q6H PRN Darrick Lynn MD Or promethazine (PHENERGAN) suppository 12.5-25 mg 12.5-25 mg Rectal Q6H PRN Edin Lynn MD saliva substitute (BIOTENE ORALBALANCE DRY MOUTH) gel GEL Mouth/Throat Q30 Min PRN Lexi Montes MD senna (SENOKOT) tablet 8.6 mg 8.6 mg Oral BID PRN José Miguel Garcia PA-C 8.6 mg at 05/28/17 0038 sertraline (ZOLOFT) tablet 100 mg 100 mg Oral Nightly José Miguel Garcia PA-C 100 mg at 06/03/17 2046 traMADol (ULTRAM) tablet 100 mg 100 mg Oral Q6H PRN Yann Au MD 100 mg at 05/17 0535 Current Infusions: Objective Data Hematology and anemia Recent Labs Lab 05/30/17 0336 WBC 10.9 HGB 9.7* HCT 28.8* PLT 177 NEUPCT 70.7 MONPCT 11.1 No results for input(s): PROTIME, INR, PTT in the last 168 hours. Recent Labs Lab 05/30/17 0337 TSH 2.37 Inflammatory markers No results for input(s): LACTATE, PROCALCITONI, CRP, ESR in the last 168 hours. Chemistry Recent Labs Lab 06/04/17 0604 06/03/17 0526 07/34005/30/17 0337 GLU 110* 106 110* < > 126* NA 136 138 136 < > 133* K 3.3* 3.7 3.6 < > 4.1 CL 100 101 96* < > 102 CO2 28 29 31 < > 26 ANIONGAP 8 8 9 < > 5 BUN 4* 8 14 < > 12 CREA 0.52* 0.54* 0.56* < > 0.46* GFRNONAA >60 >60 >60 < > >60 CALCIUM 8.0* 8.2* 8.1* < > 8.1* ALBUMIN -- -- -- -- 2.5* TOTALPROTEIN -- -- -- -- 6.0 BILITOT -- -- -- -- 0.8 ALKPHOS -- -- -- -- 100 ALT -- -- -- -- 52* AST -- -- -- -- 66* < > = values in this interval not displayed. Recent Labs Lab 05/31/17 2303 MG 1.8 No results for input(s): AMYLASE, LIPASE in the last 168 hours. No results for input(s): TRIG, CHOL, HDL, LDL in the last 168 hours. No results for input(s): AMMONIA in the last 168 hours. Cardiology & Digoxin Recent Labs Lab 06/02/1734006/01/17 0346 BNP 162* 423* ABG No results for input(s): PHART, PO2ART, HJH6ZHB, RRM5FUN, BEART, T5BSEASC in the last 168 h ours. No results for input(s): SPECSOURCE, PHPOCB, PCO2, PO2, HCO3, TCO2, BEART, [id number] in the last 168 hours. Drug of overdose and abuse No results for input(s): ALCOHOL, ACTMN, SALICYLATE in the last 168 hours. No results for input(s): AMPHEQUAL, BARBITURATE, BENZSCR, CANNIBSCR, AMPHETAMINE, METHADSCR , OPIATESCR in the last 168 hours. Urinalysis No results for input(s): GLUCOSEU, WBCUA, RBCUA, SQUAMEPIUA, BACTERIAUA, CULTIF in the last 168 hours. Point of care glucose No results for input(s): POCGLU in the last 168 hours. Micro results (more choices using dot micro) Microbiology Results (72 hrs) Procedure Component Value Units Date/Time Culture, Wound, Smear [[id number]] Collected: 06/01/17 1731 Order Status: Completed Lab Status: Final result Updated: 06/03/17 1012 Specimen: Wound from Arm Culture No Growth Gram Stain Result 3+ White Blood Cells 1+ Epithelial cells No organisms seen Radiology results (more choices using dot risresults) No results found. Serial weights: Filed Weights: 05/26/17 0622 05/26/17 1630 05/27/17 2344 05/29/17 0135 Weight: 72.1 kg (159 lb) 72.1 kg (159 lb) 75.7 kg (166 lb 14.2 oz) 81.2 kg (179 lb 0.2 oz) 05/30/17 0400 05/31/17 0500 06/02/17 0355 Weight: 81.5 kg (179 lb 10.8 oz) 75 kg (165 lb 5.5 oz) 74.7 kg (164 lb 10.9 oz) Most recent weight: Input and output 2 shifts and 3 shifts: Wt Readings from Last 1 Encounters: 06/02/17 74.7 kg (164 lb 10.9 oz) I/O last 24 Hours: In: 600 [P.O.:600] Out: 1900 [Urine:1900] I/O last 3 completed shifts: In: 1112 [P.O.:900; I.V.:107; IV Piggyback:105] Out: 2900 [Urine:2900] Vitals Ranges: Temp: [36 C (96.8 F)-37 C (98.6 F)] 37 C (98.6 F) Pulse: [73-79] 73 Resp: [16-20] 18 BP: (133-183)/(62-88) 139/67 Vitals: Temp: 37 C (98.6 F) BP: 139/67 Pulse: (70) Resp: (18) SpO2: 94 % SpO2 94 % on nasal cannula at flow rate 2L/min (dot meyvent) Subjective CC Admit May [address] Lynn, complicated by A fib with RVR and delerium Says not hungry and some GI upset but says no N/V Says hurts and points towards right groin, and says right knee numb since sgy (she thinks) Denies constipation, says BM last NOC ROS See above Exam General Alert NAD Cardiac RRR 1/6 sys and tele reviewed earlier OK Extremities no sig oedema, right knee no pain on ROM right hip pain on extreme rotation and tender in the right groin vs hip area but not hernia Lung Mild rhonchi in bases Abdominal + BS soft NT under the brae Neuro alert and fluent (dot meyexam) Assessment and Hospital Course (dot meyprob vs meyprobap) Active Hospital Problems Diagnosis Atrial fibrillation with RVR This morning in [place], has had Amiodarone load Dr Roberts consulting (he signed off on ) and says will followup in 2-4 weeks Is on Apixaban Amiodarone oral 400 mg bid started on the On should drop the amiodarone to 200 mg po daily Echo this admit EF 70 percent, mild valve disease, was not fluid overloaded on the Status post lumbar spinal fusion May 26 Dr Lynn Right hip/groin pain on possibly related to lumbar sgy but will xray right hip Chronic Prednisone use (presume for her RA) 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 Left arm IV site swelling (thrombus) Dr Hall saw her and felt it was resolving (after sp ontaneous draining) does recommend warm compresses and antibiotics for several days Acute metabolic encephalopathy Depression, unspecified depression type Anxiety state, unspecified Delirium due to multiple etiologies Zyprexa had helped and Montes restarting on at 9 pm low dose 5 mg Tele Psych consult on (patient has developed cognitive deficits over the pasty year an d delerium here) with recommend Zyprexa low dose (seroquel other option less cardiac effects ) is improved but impulsive, She says PCP is Dr Lima in [place] Resolved Hospital Problems Diagnosis No resolved problems to display. (dot meyaddendum tdnorefesh nownorefresh) (dot meyvent) (dot malnutattest is attestation for malnutrition) Plan Right hip xray today I spoke with Dr Taveras and Dr Lynn I would favor her going to Rehab here Addendum (06/04/2017 18:27) I modified the UA order to allow microscopic and culture if indicated, one therapist though t patient had regressed with behavior (dot meyaddendum tdnorefesh nownorefresh) (dot meytime meycritical meysign) Jarad Montes MD 06/04/2017 12:33 [facility] Reference. This is NOT part of the patient's formal assessment section. In the assessment or plan section of notes the author may date some of the subsections with a number such as "" or "" to indicate the date of that entry or event. In the example below the 1st line is the original entry and the subsequent lines indicate flowing updates to the subsection: Example assessment subsection (such as CHF or CP or Pneumonia) Patient is improved today with resolution of symptoms Worse with recurrence of symptoms requiring further testing Portions of this chart may have been created with Sendio voice recognition software. Occasi onal wrong-word or sound-alike substitutions may have occurred due to the inherent munson itations of voice recognition software. Please read the chart carefully and recognize, using context, where these substitutions have occurred eyer, Jarad Marroquin MD - 06/03/2017 6:54 PM PDT [facility]ITAL[facility] PROGRESS NOTE Patient: Dorothea Calvo : 1945: Age: 72 y.o. MedRec: [id number] PCP: Hemanth Lima MD Admission date: 05/26/2017 Hospital day # : 8 Physician author: Jarad Montes MD Today: 06/03/2017 Allergies: Allergies Allergen Reactions Adhesive & Tape Other (See Comments) Blisters where tape & bandages Uncoded Nonscreenable Allergen Nausea And Vomiting Problems related to anesthetic when waking up Codeine Rash Nabumetone Diarrhea Current Medications: Current Facility-Administered Medications Medication Dose Route Frequency Provider Last Rate Last Dose acetaminophen (TYLENOL) tablet 650 mg 650 mg Oral Q4H PRN José Miguel Garcia PA-C 650 mg at 06/03/17 1540 amiodarone (PACERONE) tablet 400 mg 400 mg Oral BID Yann Au MD 400 mg at 05/16 08/02 0907 ampicillin-sulbactam (UNASYN) 3 g in sodium chloride 0.9% 100 mL IVPB 3 g Intravenous 4 times per day Yann Au MD 200 mL/hr at 06/03/17 1800 3 g at 06/03/17 1800 apixaban (ELIQUIS) tablet 5 mg 5 mg Oral BID Isacc Sears MD 5 mg at 06/03/17 0 908 bisacodyl (DULCOLAX) suppository 10 mg 10 mg Rectal Daily PRN SHAUN Vasquez calcium carbonate (TUMS) chewable tablet 1,000 mg 1,000 mg Oral Q2H PRN José Miguel Garcia PA-C dilTIAZem (CARDIZEM CD) 24 hr capsule 120 mg 120 mg Oral Daily Yann Au MD 120 mg at 06/03/17 0908 diphenhydrAMINE (BENADRYL) injection 12.5 mg 12.5 mg Intravenous Q4H PRN José Miguel Garcia PA-C Or diphenhydrAMINE (BENADRYL) tablet 25 mg 25 mg Oral Q4H PRN José Miguel Garcia PA-C 25 mg at 05/28/17 0205 Or diphenhydrAMINE (BENADRYL) 12.5 mg/5 mL liquid 25 mg 25 mg Oral Q4H PRN José Miguel Garcia PA-C docusate sodium (COLACE) capsule 100 mg 100 mg Oral BID José Miguel Garcia PA-C 1 00 mg at 06/03/17 0908 enalaprilat (VASOTEC) injection 1.25 mg 1.25 mg Intravenous Q6H PRN José Miguel martinez PA-C 1.25 mg at 05/26/17 1859 HYDROmorphone (DILAUDID) injection 0.25-0.5 mg 0.25-0.5 mg Intravenous Q1H PRN Yann Au MD 0.5 mg at 05/29/17 0147 labetalol (TRANDATE) 5 mg/mL injection 10 mg 10 mg Intravenous Q10 Min PRN José Miguel Roman PA-C 10 mg at 05/26/17 1813 lactulose liquid 30 mL 30 mL Oral Daily PRN José Miguel Garcia PA-C magnesium hydroxide (MILK OF MAGNESIA) 400 mg/5 mL suspension 30 mL 30 mL Oral BID PRN José Miguel Garcia PA-C 30 mL at 05/28/17 0038 magnesium oxide (MAG-OX) tablet 400 mg 400 mg Oral Daily Garrisonla nena Resendiz DO 400 mg at 06/03/17 0907 menthol (HALLS COUGH DROP) lozenge 1 lozenge 1 lozenge Buccal Q2H PRN José Miguel leblanc PA-C metoclopramide (REGLAN) 5 mg/mL injection 10 mg 10 mg Intravenous Q6H PRN SHAUN Lea 10 mg at 05/26/17 1829 metoclopramide (REGLAN) tablet 10 mg 10 mg Oral Q4H PRN José Miguel Garcia PA-C OLANZapine zydis (zyPREXA ZYDIS) disintegrating tablet 5 mg 5 mg Oral Nightly Jarad Montes MD 5 mg at 06/02/172036 ondansetron (ZOFRAN ODT) disintegrating tablet 4 mg 4 mg Oral Q6H PRN José Miguel leblanc PA-C ondansetron (ZOFRAN) injection 4 mg 4 mg Intravenous Q6H PRN SELIN Vasquez 4 mg at 05/29/17 1218 phenol (CHLORASEPTIC) spray 1-2 spray 1-2 spray Mouth/Throat Q3H PRN José Miguel chang PA-C polyethylene glycol (MIRALAX) powder 17 g 17 g Oral Daily José Miguel Garcia PA-C 17 g at 06/01/17 0858 predniSONE (DELTASONE) tablet 10 mg 10 mg Oral Daily Yann Au MD 10 mg at 05/16 08/02 0908 prochlorperazine (COMPAZINE) injection 10 mg 10 mg Intravenous Q6H PRN SHAUN Marrero 10 mg at 05/27/17 0607 prochlorperazine (COMPAZINE) tablet 5 mg 5 mg Oral Q6H PRN José Miguel Garcia PA-C promethazine (PHENERGAN) tablet 12.5-25 mg 12.5-25 mg Oral Q6H PRN Edin Lynn MD Or promethazine (PHENERGAN) (IV ONLY) injection 6.25 mg 6.25 mg Intravenous Q6H PRN Edin Lynn MD 6.25 mg at 05/27/17 0755 Or promethazine (PHENERGAN) (IM ONLY) injection 6.25 mg 6.25 mg Intramuscular Q6H PRN Darrick Lynn MD Or promethazine (PHENERGAN) suppository 12.5-25 mg 12.5-25 mg Rectal Q6H PRN Edin Lynn MD saliva substitute (BIOTENE ORALBALANCE DRY MOUTH) gel GEL Mouth/Throat Q30 Min PRN Lexi Montes MD senna (SENOKOT) tablet 8.6 mg 8.6 mg Oral BID PRN José Miguel Garcia PA-C 8.6 mg at 05/28/17 0038 sertraline (ZOLOFT) tablet 100 mg 100 mg Oral Nightly José Miguel Garcia PA-C 100 mg at 06/02/17 2037 traMADol (ULTRAM) tablet 100 mg 100 mg Oral Q6H PRN Yann Au MD 100 mg at 05/16 08/02 1048 Current Infusions: Objective Data Hematology and anemia Recent Labs Lab 05/30/17 0336 WBC 10.9 HGB 9.7* HCT 28.8* PLT 177 NEUPCT 70.7 MONPCT 11.1 No results for input(s): PROTIME, INR, PTT in the last 168 hours. Recent Labs Lab 05/30/17 0337 TSH 2.37 Inflammatory markers No results for input(s): LACTATE, PROCALCITONI, CRP, ESR in the last 168 hours. Chemistry Recent Labs Lab 06/03/17 0526 06/02/17 0341 06/01/17 0346 05/30/17 0337 GLU 106 110* 122* -- 126* NA 138 136 134* -- 133* K 3.7 3.6 4.1 < > 4.1 CL 101 96* 97* -- 102 CO2 29 31 30 -- 26 ANIONGAP 8 9 7 -- 5 BUN 8 14 12 -- 12 CREA 0.54* 0.56* 0.56* -- 0.46* GFRNONAA >60 >60 >60 -- >60 CALCIUM 8.2* 8.1* 8.2* -- 8.1* ALBUMIN -- -- -- -- 2.5* TOTALPROTEIN -- -- -- -- 6.0 BILITOT -- -- -- -- 0.8 ALKPHOS -- -- -- -- 100 ALT -- -- -- -- 52* AST -- -- -- -- 66* < > = values in this interval not displayed. Recent Labs Lab 05/31/17 2303 05/28/17 0826 05/27/17 2304 MG 1.8 2.0 1.8 No results for input(s): AMYLASE, LIPASE in the last 168 hours. No results for input(s): TRIG, CHOL, HDL, LDL in the last 168 hours. No results for input(s): AMMONIA in the last 168 hours. Cardiology & Digoxin Recent Labs Lab 06/02/17 0341 06/01/17 0346 BNP 162* 423* ABG No results for input(s): PHART, PO2ART, REX1HZM, QFM3TFO, BEART, P2UMRMUK in the last 168 h ours. No results for input(s): SPECSOURCE, PHPOCB, PCO2, PO2, HCO3, TCO2, BEART, EQCB3YLT in the last 168 hours. Drug of overdose and abuse No results for input(s): ALCOHOL, ACTMN, SALICYLATE in the last 168 hours. No results for input(s): AMPHEQUAL, BARBITURATE, BENZSCR, CANNIBSCR, AMPHETAMINE, METHADSCR , OPIATESCR in the last 168 hours. Urinalysis No results for input(s): GLUCOSEU, WBCUA, RBCUA, SQUAMEPIUA, BACTERIAUA, CULTIF in the last 168 hours. Point of care glucose No results for input(s): POCGLU in the last 168 hours. Micro results (more choices using dot micro) Microbiology Results (72 hrs) Procedure Component Value Units Date/Time Culture, Wound, Smear [[id number]] Collected: 06/01/17 2206 Order Status: Completed Lab Status: Final result Updated: 06/03/17 1012 Specimen: Wound from Arm Culture No Growth Gram Stain Result 3+ White Blood Cells 1+ Epithelial cells No organisms seen Radiology results (more choices using dot risresults) No results found. Serial weights: Filed Weights: 05/26/17 0622 05/26/17 1630 05/27/17 2344 05/29/17 0135 Weight: 72.1 kg (159 lb) 72.1 kg (159 lb) 75.7 kg (166 lb 14.2 oz) 81.2 kg (179 lb 0.2 oz) 05/30/17 0400 05/31/17 0500 06/02/17 0355 Weight: 81.5 kg (179 lb 10.8 oz) 75 kg (165 lb 5.5 oz) 74.7 kg (164 lb 10.9 oz) Most recent weight: Input and output 2 shifts and 3 shifts: Wt Readings from Last 1 Encounters: 06/02/17 74.7 kg (164 lb 10.9 oz) I/O last 24 Hours: In: 1412 [P.O.:1100; I.V.:107; IV Piggyback:205] Out: 1600 [Urine:1600] I/O last 3 completed shifts: In: 2061 [P.O.:1750; I.V.:107; IV Piggyback:205] Out: 1974 [Urine:1974] Vitals Ranges: Temp: [36.4 C (97.5 F)-37.3 C (99.1 F)] 36.4 C (97.5 F) Pulse: [69-79] 79 Resp: [16] 16 BP: (133-172)/(62-80) 133/62 Vitals: Temp: 36.4 C (97.5 F) BP: 133/62 Pulse: 79 Resp: 16 SpO2: 94 % SpO2 94 % on nasal cannula at flow rate 2L/min (dot meyvent) Subjective CC Admit May [address] Lynn, complicated by A fib with RVR and delerium Using nasal O2 while asleep not during day anymore and not doing BIPAP hates it Was impulsive and fell last NOC Walked 200 feet No N/V Not agitated Daughter Juanita in BM today ROS See above Exam General Alert NAD Cardiac RRR 1/6 sys and tele reviewed earlier OK Extremities no sig oedema but has clot left forearm is small and not hot/red and has tiny a reas right upper and lower forearm probaby prior IV sites mild inflammation Lung Mild rhonchi in bases Abdominal + BS Neuro alert and fluent (dot meyexam) Assessment and Hospital Course (dot meyprob vs meyprobap) Active Hospital Problems Diagnosis Atrial fibrillation with RVR This morning in SR, has had Amiodarone load Dr Roberts consulting (he signed off on ) and says will followup in 2-4 weeks Is on Apixaban Amiodarone oral 400 mg bid started on the On should drop the amiodarone to 200 mg po daily Echo this admit EF 70 percent, mild valve disease, was not fluid overloaded on the Status post lumbar spinal fusion May 26 Dr Lynn Chronic Prednisone use (presume for her RA) 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 Left arm IV site swelling (thrombus) Dr Hall saw her and felt it was resolving (after sp ontaneous draining) does recommend warm compresses and antibiotics for several days Acute metabolic encephalopathy Depression, unspecified depression type Anxiety state, unspecified Delirium due to multiple etiologies Zyprexa had helped and Simon restarting on at 9 pm low dose 5 mg Tele Psych consult on (patient has developed cognitive deficits over the pasty year an d delerium here) with recommend Zyprexa low dose (seroquel other option less cardiac effects ) is improved but impulsive, She says PCP is Dr Lima in [place] Resolved Hospital Problems Diagnosis No resolved problems to display. (dot meyaddendum tdnorefesh nownorefresh) (dot meyvent) (dot malnutattest is attestation for malnutrition) Plan Improving nicely Daughter says goal of [facility] Rehab (dot meyaddendum tdnorefesh nownorefresh) (dot meytime meycritical meysign) Jarad Montes MD 06/03/2017 18:54 [facility] Reference. This is NOT part of the patient's formal assessment section. In the assessment or plan section of notes the author may date some of the subsections with a number such as "" or "" to indicate the date of that entry or event. In the example below the 1st line is the original entry and the subsequent lines indicate flowing updates to the subsection: Example assessment subsection (such as CHF or CP or Pneumonia) Patient is improved today with resolution of symptoms 24th Worse with recurrence of symptoms requiring further testing Portions of this chart may have been created with Sendio voice recognition software. Occasi onal wrong-word or sound-alike substitutions may have occurred due to the inherent munson itations of voice recognition software. Please read the chart carefully and recognize, using context, where these substitutions have occurred Macie St RN - 06/03/2017 6:28 PM PDTPatient has history of frequent falls. Patient moved closer to [employer] station, room 326 for her safety. Call light in place, bed alarm on. Daughter by bedside . Jeffry Arevalo PA-C - 06/03/2017 7:48 AM PDTFormatting of this note might be different from the [facility] NEUROSURGERY PROGRESS NOTE PATIENT NAME: Dorothea Calvo AGE: 72 y.o. DATE OF SERVICE: 06/03/2017 7:48 S: The patient had a fall last evening when getting OOB. Mechanical fall by history. Hit head but no LOC. Seems appropriate this AM. Hopeful for Inpatient rehab The patient has been voiding and is passing flatus. O: CURRENT MEDICATIONS: Current Facility-Administered Medications Medication Dose Route Frequency Provider Last Rate Last Dose acetaminophen (TYLENOL) tablet 650 mg 650 mg Oral Q4H PRN José Miguel Garcia PA-C 650 mg at 06/01/17 0740 amiodarone (PACERONE) tablet 400 mg 400 mg Oral BID Yann Au MD 400 mg at 05/16 ampicillin-sulbactam (UNASYN) 3 g in sodium chloride 0.9% 100 mL IVPB 3 g Intravenous 4 times per day Yann Au MD 200 mL/hr at 06/03/17 0641 3 g at 06/03/17 0641 apixaban (ELIQUIS) tablet 5 mg 5 mg Oral BID Isacc Sears MD 5 mg at 06/02/17 2 037 bisacodyl (DULCOLAX) suppository 10 mg 10 mg Rectal Daily PRN SHAUN Vasquez calcium carbonate (TUMS) chewable tablet 1,000 mg 1,000 mg Oral Q2H PRN José Miguel Garcia PA-C dilTIAZem (CARDIZEM CD) 24 hr capsule 120 mg 120 mg Oral Daily Yann Au MD 120 mg at 06/02/17 0812 diphenhydrAMINE (BENADRYL) injection 12.5 mg 12.5 mg Intravenous Q4H PRN José Miguel Garcia PA-C Or diphenhydrAMINE (BENADRYL) tablet 25 mg 25 mg Oral Q4H PRN José Miguel Garcia PA-C 25 mg at 05/28/17 0205 Or diphenhydrAMINE (BENADRYL) 12.5 mg/5 mL liquid 25 mg 25 mg Oral Q4H PRN José Miguel Garcia PA-C docusate sodium (COLACE) capsule 100 mg 100 mg Oral BID José Miguel Garcia PA-C 1 00 mg at 06/01/17 2034 enalaprilat (VASOTEC) injection 1.25 mg 1.25 mg Intravenous Q6H PRN José Miguel martinez PA-C 1.25 mg at 05/26/17 1859 HYDROmorphone (DILAUDID) injection 0.25-0.5 mg 0.25-0.5 mg Intravenous Q1H PRN Yann Au MD 0.5 mg at 05/29/17 0147 labetalol (TRANDATE) 5 mg/mL injection 10 mg 10 mg Intravenous Q10 Min PRN José Miguel Roman PA-C 10 mg at 05/26/17 1813 lactulose liquid 30 mL 30 mL Oral Daily PRN José Miguel Garcia PA-C magnesium hydroxide (MILK OF MAGNESIA) 400 mg/5 mL suspension 30 mL 30 mL Oral BID PRN José Miguel Garcia PA-C 30 mL at 05/28/17 0038 magnesium oxide (MAG-OX) tablet 400 mg 400 mg Oral Daily Garrisonl anena Resendiz DO 400 mg at 06/02/17 0812 menthol (HALLS COUGH DROP) lozenge 1 lozenge 1 lozenge Buccal Q2H PRN José Miguel leblanc PA-C metoclopramide (REGLAN) 5 mg/mL injection 10 mg 10 mg Intravenous Q6H PRN SHAUN Lea 10 mg at 05/26/17 1829 metoclopramide (REGLAN) tablet 10 mg 10 mg Oral Q4H PRN José Miguel Garcia PA-C OLANZapine zydis (zyPREXA ZYDIS) disintegrating tablet 5 mg 5 mg Oral Nightly Jarad Montes MD 5 mg at 06/02/172036 ondansetron (ZOFRAN ODT) disintegrating tablet 4 mg 4 mg Oral Q6H PRN José Miguel leblanc PA-C ondansetron (ZOFRAN) injection 4 mg 4 mg Intravenous Q6H PRN SELIN Vasquez 4 mg at 05/29/17 1218 phenol (CHLORASEPTIC) spray 1-2 spray 1-2 spray Mouth/Throat Q3H PRN José Miguel chang PA-C polyethylene glycol (MIRALAX) powder 17 g 17 g Oral Daily José Miguel Garcia PA-C 17 g at 06/01/17 0858 predniSONE (DELTASONE) tablet 10 mg 10 mg Oral Daily Yann Au MD 10 mg at 05/16 07/02 0812 prochlorperazine (COMPAZINE) injection 10 mg 10 mg Intravenous Q6H PRN SHAUN Marrero 10 mg at 05/27/17 0607 prochlorperazine (COMPAZINE) tablet 5 mg 5 mg Oral Q6H PRN José Miguel Garcia PA-C promethazine (PHENERGAN) tablet 12.5-25 mg 12.5-25 mg Oral Q6H PRN Edin Lynn MD Or promethazine (PHENERGAN) (IV ONLY) injection 6.25 mg 6.25 mg Intravenous Q6H PRN Edin Lynn MD 6.25 mg at 05/27/17 0755 Or promethazine (PHENERGAN) (IM ONLY) injection 6.25 mg 6.25 mg Intramuscular Q6H PRN Darrick Lynn MD Or promethazine (PHENERGAN) suppository 12.5-25 mg 12.5-25 mg Rectal Q6H PRN Edin Lynn MD senna (SENOKOT) tablet 8.6 mg 8.6 mg Oral BID PRN José Miguel Garcia PA-C 8.6 mg at 05/28/17 0038 sertraline (ZOLOFT) tablet 100 mg 100 mg Oral Nightly José Miguel Garcia PA-C 100 mg at 06/02/172036 traMADol (ULTRAM) tablet 100 mg 100 mg Oral Q6H PRN Yann Au MD 100 mg at 05/16 08/02 0347 ALLERGIES: Allergies Allergen Reactions Adhesive & Tape Other (See Comments) Blisters where tape & bandages Uncoded Nonscreenable Allergen Nausea And Vomiting Problems related to anesthetic when waking up Codeine Rash Nabumetone Diarrhea PHYSICAL EXAMINATION: Temp: [36.7 C (98.1 F)-37.3 C (99.1 F)] 36.7 C (98.1 F) Pulse: [68-79] 78 Resp: [14-20] 16 BP: (119-172)/(56-80) 145/66 Intake/Output Summary (Last 24 hours) at 06/03/17 0748 Last data filed at 06/03/17 0542 Gross per 24 hour Intake 1412 ml Output 1600 ml Net -188 ml GENERAL: Dorothea Calvo is in no acute distress with unlabored respirations. HEENT: HEAD/FACE: EYES: Normocephalic and atraumatic. Small lump on scalp. No Blood Normal sclerae without icterus. CHEST: Clear. HEART: Irregular, normal rate EXTREMITIES: No edema or swelling. SCD's BACK: The back incisions are dressed. NEUROLOGICAL EXAM: MENTAL STATUS: The patient is awake, alert, and oriented x 2. She follows simple commands. She speech is fluent, her comprehends speech well, and her repeats well. She has no apparent deficits with short or nursing home memory. MOTOR EXAM: Motor strength is stable 4+/5 R DF and HF SENSORY EXAM: Sensory exam is stable 24 HOUR LABS: All Component Based Labs None ASSESSMENT: NEUROSURGICAL DIAGNOSES: S/p lumbar fusion HOSPITAL/GENERAL DIAGNOSES: Past Medical History: Diagnosis Date Acute pansinusitis Atrial fibrillation (HCC) 08-18-2016 Atypical chest pain Bilateral leg pain Contusion of knee with skin surface intact Right Anterior COPD (chronic obstructive pulmonary disease) ([facility]) Hyperlipoproteinemia type Li-a Impacted cerumen of right ear Low back pain Lumbar foraminal stenosis 08/13/2016 Lumbar herniated disc L1/T2 Left Lumbar neuritis L3-L4, L4-L5, L5/S1 Lumbar spondylosis Lumbar stenosis Moderate major depression, single episode ([facility]) Neoplasm of uncertain behavior of skin PONV (postoperative nausea and vomiting) projectile vomitting waking up after surgery Primary localized osteoarthritis of left hip Rheumatoid arthritis involving multiple sites ([facility]) Sacroiliac pain Spinal stenosis, lumbar Lumbar canal with neurogenic claudication Spondylolisthesis of lumbar region L3/L4, L4/L5 TB (tuberculosis) Thoracic neuritis T1-T2 PLAN: S/p lumbar fusion, Hospital day 8 - Neurologically stable and pain control is appropriate. - Metabolic encephalopathy in the setting of altered mental status, increasing confusion an d agitation and treated with frequent staff checks, family at bedside, and stopping several medications.Metabolic encephalopathy in the setting of altered mental status, increasing con fusion and agitation and treated with frequent staff checks, family at bedside, and stopping several medications. She had a psychiatric evaluation yesterday. - Afib with tachycardia - improved with amiodarone, diltiazem, appreciate medicine - Mobilize, PT/OT - SCD's - Working on BM/bowel function. Encouraged activity and medications to assist - Disp: Eval for IPR given all of her medical issues and inability to follow restrictions c urrently but may have to consider a SNF given no rehab availability.hope for an opening in i npatient rehab ELECTRONICALLY SIGNED BY: Jeffry France PA-C, 06/03/2017 7:48 Raisa Wei PharmD - 06/02/2017 11:08 PM PDT PHARMACY SERVICES: ADMISSION MEDICATION REVIEW Dorothea Calvo is a 72 y.o. female admitted on 05/26/17. Patient is a reliable historian. Location of Patient when reviewed: x Medical Floor Patient s prior to admit medication and over the counter (OTC) medications/herbal supplem ents list obtained from: x Verbal interview x Patient ABLE to recall name, strength, and directions x Pharmacy list names: [facility] insurance reported information Vaccines up to date? 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 DATE OF SERVICE: 06/02/2017 17:40 S: The patient had an another episode of afib and also had another bout of delirium yesterd ay. Pleasant today. Ambulated in the halls. The patient has been voiding and is passing flatus. O: CURRENT MEDICATIONS: Current Facility-Administered Medications Medication Dose Route Frequency Provider Last Rate Last Dose acetaminophen (TYLENOL) tablet 650 mg 650 mg Oral Q4H PRN José Miguel Garcia PA-C 650 mg at 06/01/17 0740 amiodarone (PACERONE) tablet 400 mg 400 mg Oral BID Yann Au MD 400 mg at 05/16 07/02 0812 ampicillin-sulbactam (UNASYN) 3 g in sodium chloride 0.9% 100 mL IVPB 3 g Intravenous 4 times per day Yann Au MD 200 mL/hr at 06/02/17 1402 3 g at 06/02/17 1402 apixaban (ELIQUIS) tablet 5 mg 5 mg Oral BID Isacc Sears MD bisacodyl (DULCOLAX) suppository 10 mg 10 mg Rectal Daily PRN SHAUN Vasquez calcium carbonate (TUMS) chewable tablet 1,000 mg 1,000 mg Oral Q2H PRN José Miguel Garcia PA-C dilTIAZem (CARDIZEM CD) 24 hr capsule 120 mg 120 mg Oral Daily Yann Au MD 120 mg at 06/02/17 0812 diphenhydrAMINE (BENADRYL) injection 12.5 mg 12.5 mg Intravenous Q4H PRN José Miguel Garcia PA-C Or diphenhydrAMINE (BENADRYL) tablet 25 mg 25 mg Oral Q4H PRN José Miguel Garcia PA-C 25 mg at 05/28/17 0205 Or diphenhydrAMINE (BENADRYL) 12.5 mg/5 mL liquid 25 mg 25 mg Oral Q4H PRN José Miguel Garcia PA-C docusate sodium (COLACE) capsule 100 mg 100 mg Oral BID José Miguel Garcia PA-C 1 00 mg at 06/01/17 2034 enalaprilat (VASOTEC) injection 1.25 mg 1.25 mg Intravenous Q6H PRN José Miguel martinez PA-C 1.25 mg at 05/26/17 1859 HYDROmorphone (DILAUDID) injection 0.25-0.5 mg 0.25-0.5 mg Intravenous Q1H PRN Yann Au MD 0.5 mg at 05/29/17 0147 labetalol (TRANDATE) 5 mg/mL injection 10 mg 10 mg Intravenous Q10 Min PRN José Miguel Roman PA-C 10 mg at 05/26/17 1813 lactulose liquid 30 mL 30 mL Oral Daily PRN José Miguel Garcia PA-C magnesium hydroxide (MILK OF MAGNESIA) 400 mg/5 mL suspension 30 mL 30 mL Oral BID PRN José Miguel Garcia PA-C 30 mL at 05/28/17 0038 magnesium oxide (MAG-OX) tablet 400 mg 400 mg Oral Daily Garrison Resendiz DO 400 mg at 06/02/17 0812 menthol (HALLS COUGH DROP) lozenge 1 lozenge 1 lozenge Buccal Q2H PRN José Miguel Hood Ku pfer, PA-C metoclopramide (REGLAN) 5 mg/mL injection 10 mg 10 mg Intravenous Q6H PRN SHAUN Lea 10 mg at 05/26/17 1829 metoclopramide (REGLAN) tablet 10 mg 10 mg Oral Q4H PRN José Miguel Garcia PA-C OLANZapine zydis (zyPREXA ZYDIS) disintegrating tablet 5 mg 5 mg Oral Nightly Jarad Montes MD ondansetron (ZOFRAN ODT) disintegrating tablet 4 mg 4 mg Oral Q6H PRN José Miguel leblanc PA-C ondansetron (ZOFRAN) injection 4 mg 4 mg Intravenous Q6H PRN SELIN Vasquez 4 mg at 05/29/17 1218 pharmacy consult: karoline Other Pharmacy Consult Jarad Montes MD phenol (CHLORASEPTIC) spray 1-2 spray 1-2 spray Mouth/Throat Q3H PRN José Miguel chang PA-C polyethylene glycol (MIRALAX) powder 17 g 17 g Oral Daily José Miguel Garcia PA-C 17 g at 06/01/17 0858 predniSONE (DELTASONE) tablet 10 mg 10 mg Oral Daily Yann Au MD 10 mg at 05/16 07/02 0812 prochlorperazine (COMPAZINE) injection 10 mg 10 mg Intravenous Q6H PRN SHAUN Marrero 10 mg at 05/27/17 0607 prochlorperazine (COMPAZINE) tablet 5 mg 5 mg Oral Q6H PRN José Miguel Garcia PA-C promethazine (PHENERGAN) tablet 12.5-25 mg 12.5-25 mg Oral Q6H PRN Edin Lynn MD Or promethazine (PHENERGAN) (IV ONLY) injection 6.25 mg 6.25 mg Intravenous Q6H PRN Edin Lynn MD 6.25 mg at 05/27/17 0755 Or promethazine (PHENERGAN) (IM ONLY) injection 6.25 mg 6.25 mg Intramuscular Q6H PRN Darrick Lynn MD Or promethazine (PHENERGAN) suppository 12.5-25 mg 12.5-25 mg Rectal Q6H PRN Edin Lynn MD senna (SENOKOT) tablet 8.6 mg 8.6 mg Oral BID PRN José Miguel Garcia PA-C 8.6 mg at 05/28/17 0038 sertraline (ZOLOFT) tablet 100 mg 100 mg Oral Nightly José Miguel Garcia PA-C 100 mg at 06/01/172033 traMADol (ULTRAM) tablet 100 mg 100 mg Oral Q6H PRN Yann Au MD 100 mg at 05/16 07/02 0809 ALLERGIES: Allergies Allergen Reactions Adhesive & Tape Other (See Comments) Blisters where tape & bandages Uncoded Nonscreenable Allergen Nausea And Vomiting Problems related to anesthetic when waking up Codeine Rash Nabumetone Diarrhea PHYSICAL EXAMINATION: Temp: [36.6 C (97.9 F)-37 C (98.6 F)] 37 C (98.6 F) Pulse: [65-91] 68 Resp: [12-22] 16 BP: (119-146)/(56-96) 132/56 Intake/Output Summary (Last 24 hours) at 06/02/17 1740 Last data filed at 06/02/17 1500 Gross per 24 hour Intake 1690 ml Output 2050 ml Net -360 ml GENERAL: Dorothea Calvo is in no acute distress with unlabored respirations. HEENT: HEAD/FACE: EYES: Normocephalic and atraumatic. There are no areas of recent trauma. Normal sclerae without icterus. CHEST: Clear. HEART: Irregular, normal rate EXTREMITIES: No edema or swelling. SCD's BACK: The back incisions are dressed. NEUROLOGICAL EXAM: MENTAL STATUS: The patient is awake, alert, and oriented x 2. She follows simple commands. She speech is fluent, her comprehends speech well, and her repeats well. She has no apparent deficits with short or nursing home memory. MOTOR EXAM: Motor strength is stable 4+/5 R DF and HF SENSORY EXAM: Sensory exam is stable 24 HOUR LABS: All Component Based Labs None ASSESSMENT: NEUROSURGICAL DIAGNOSES: S/p lumbar fusion HOSPITAL/GENERAL DIAGNOSES: Past Medical History: Diagnosis Date Acute pansinusitis Atrial fibrillation ([facility]) 08-18-2016 Atypical chest pain Bilateral leg pain Contusion of knee with skin surface intact Right Anterior COPD (chronic obstructive pulmonary disease) ([facility]) Hyperlipoproteinemia type Li-a Impacted cerumen of right [...] L4/L5 TB (tuberculosis) Thoracic neuritis T1-T2 PLAN: S/p lumbar fusion, Hospital day 7 - Neurologically stable and pain control is appropriate. - Metabolic encephalopathy in the setting of altered mental status, increasing confusion an d agitation and treated with frequent staff checks, family at bedside, and stopping several medications.Metabolic encephalopathy in the setting of altered mental status, increasing con fusion and agitation and treated with frequent staff checks, family at bedside, and stopping several medications. She had a psychiatric evaluation yesterday. - Afib with tachycardia - improved with amiodarone, diltiazem, appreciate medicine - Mobilize, PT/OT - SCD's - Working on BM/bowel function. Encouraged activity and medications to assist - Disp: Eval for IPR given all of her medical issues and inability to follow restrictions c urrently but may have to consider a SNF given no rehab availability. Will make that decisio n once she is stable for the floor. ELECTRONICALLY SIGNED BY: Edin Lynn MD, 06/02/2017 17:40 Jarad Strange MD - 06/02/2017 7:50 AM PDTFormattin g of this note might be different from the original. [facility] HOSPITALIST PROGRESS NOTE Patient: Dorothea Calvo : 1945: Age: 72 y.o. MedRec: [id number] PCP: Hemanth Lima MD Admission date: 05/26/2017 Hospital day # : 7 Physician author: Jarad Montes MD Today: 06/02/2017 Allergies: Allergies Allergen Reactions Adhesive & Tape Other (See Comments) Blisters where tape & bandages Uncoded Nonscreenable Allergen Nausea And Vomiting Problems related to anesthetic when waking up Codeine Rash Nabumetone Diarrhea Current Medications: Current Facility-Administered Medications Medication Dose Route Frequency Provider Last Rate Last Dose acetaminophen (TYLENOL) tablet 650 mg 650 mg Oral Q4H PRN José Miguel Garcia PA-C 650 mg at 06/01/17 0740 amiodarone (PACERONE) tablet 400 mg 400 mg Oral BID Yann Au MD 400 mg at 05/16 ampicillin-sulbactam (UNASYN) 3 g in sodium chloride 0.9% 100 mL IVPB 3 g Intravenous 4 times per day Yann Au MD 200 mL/hr at 06/02/17 0614 3 g at 06/02/17 0614 apixaban (ELIQUIS) tablet 5 mg 5 mg Oral BID Isacc Sears MD bisacodyl (DULCOLAX) suppository 10 mg 10 mg Rectal Daily PRN SHAUN Vasquez calcium carbonate (TUMS) chewable tablet 1,000 mg 1,000 mg Oral Q2H PRN José Miguel Garcia PA-C dilTIAZem (CARDIZEM CD) 24 hr capsule 120 mg 120 mg Oral Daily Yann Au MD 120 mg at 06/01/17 1729 diphenhydrAMINE (BENADRYL) injection 12.5 mg 12.5 mg Intravenous Q4H PRN José Miguel Garcia PA-C Or diphenhydrAMINE (BENADRYL) tablet 25 mg 25 mg Oral Q4H PRN José Miguel Garcia PA-C 25 mg at 05/28/17 0205 Or diphenhydrAMINE (BENADRYL) 12.5 mg/5 mL liquid 25 mg 25 mg Oral Q4H PRN José Miguel Garcia PA-C docusate sodium (COLACE) capsule 100 mg 100 mg Oral BID José Miguel Garcia PA-C 1 00 mg at 06/01/172033 enalaprilat (VASOTEC) injection 1.25 mg 1.25 mg Intravenous Q6H PRN José Miguel martinez PA-C 1.25 mg at 05/26/17 1859 furosemide (LASIX) injection 20 mg 20 mg Intravenous BID (8 and 16) Yann Au MD 20 mg at 06/01/17 1600 HYDROmorphone (DILAUDID) injection 0.25-0.5 mg 0.25-0.5 mg Intravenous Q1H PRN Yann Au MD 0.5 mg at 05/29/17 0147 labetalol (TRANDATE) 5 mg/mL injection 10 mg 10 mg Intravenous Q10 Min PRN José Miguel Roman PA-C 10 mg at 05/26/17 1813 lactulose liquid 30 mL 30 mL Oral Daily PRN José Miguel Garcia PA-C magnesium hydroxide (MILK OF MAGNESIA) 400 mg/5 mL suspension 30 mL 30 mL Oral BID PRN José Miguel Garcia PA-C 30 mL at 05/28/17 0038 magnesium oxide (MAG-OX) tablet 400 mg 400 mg Oral Daily Garrison Resendiz DO 400 mg at 06/01/17 0858 menthol (HALLS COUGH DROP) lozenge 1 lozenge 1 lozenge Buccal Q2H PRN José Miguel leblanc PA-C metoclopramide (REGLAN) 5 mg/mL injection 10 mg 10 mg Intravenous Q6H PRN SHAUN Lea 10 mg at 05/26/17 1829 metoclopramide (REGLAN) tablet 10 mg 10 mg Oral Q4H PRN José Miguel Garcia PA-C ondansetron (ZOFRAN ODT) disintegrating tablet 4 mg 4 mg Oral Q6H PRN José Miguel leblanc PA-C ondansetron (ZOFRAN) injection 4 mg 4 mg Intravenous Q6H PRN SELIN Vasquez 4 mg at 05/29/17 1218 phenol (CHLORASEPTIC) spray 1-2 spray 1-2 spray Mouth/Throat Q3H PRN José Miguel chang PA-C polyethylene glycol (MIRALAX) powder 17 g 17 g Oral Daily José Miguel Garcia PA-C 17 g at 06/01/17 0858 potassium chloride (K-DUR) ER tablet 20 mEq 20 mEq Oral BID PC Yann Au MD 20 mEq at 06/01/17 0857 predniSONE (DELTASONE) tablet 10 mg 10 mg Oral Daily Yann Au MD 10 mg at 05/16 06/01 0857 prochlorperazine (COMPAZINE) injection 10 mg 10 mg Intravenous Q6H PRN SHAUN Marrero 10 mg at 05/27/17 0607 prochlorperazine (COMPAZINE) tablet 5 mg 5 mg Oral Q6H PRN José Miguel Garcia PA-C promethazine (PHENERGAN) tablet 12.5-25 mg 12.5-25 mg Oral Q6H PRN Edin Lynn MD Or promethazine (PHENERGAN) (IV ONLY) injection 6.25 mg 6.25 mg Intravenous Q6H PRN Edin Lynn MD 6.25 mg at 05/27/17 0755 Or promethazine (PHENERGAN) (IM ONLY) injection 6.25 mg 6.25 mg Intramuscular Q6H PRN Darrick Lynn MD Or promethazine (PHENERGAN) suppository 12.5-25 mg 12.5-25 mg Rectal Q6H PRN Edin Lynn MD senna (SENOKOT) tablet 8.6 mg 8.6 mg Oral BID PRN José Miguel Garcia PA-C 8.6 mg at 05/28/17 0038 sertraline (ZOLOFT) tablet 100 mg 100 mg Oral Nightly José Miguel Garcia PA-C 100 mg at 06/01/17 2034 traMADol (ULTRAM) tablet 100 mg 100 mg Oral Q6H PRN Yann Au MD 100 mg at 05/16 07/02 0151 Current Infusions: Objective Data Hematology and anemia Recent Labs Lab 05/30/17 0336 05/27/17 1649 WBC 10.9 12.3* HGB 9.7* 10.2* HCT 28.8* 31.0* PLT 177 185 NEUPCT 70.7 80.4 MONPCT 11.1 10.5 No results for input(s): PROTIME, INR, PTT in the last 168 hours. Recent Labs Lab 05/30/17 0337 TSH 2.37 Inflammatory markers No results for input(s): LACTATE, PROCALCITONI, CRP, ESR in the last 168 hours. Chemistry Recent Labs Lab 06/02/17 0341 06/01/17 0346 05/31/17 2303 05/30/17 0337 05/27/17 1649 GLU 110* 122* -- 126* < > 131* NA 136 134* -- 133* < > 135* K 3.6 4.1 3.8 4.1 < > 3.0* CL 96* 97* -- 102 < > 101 CO2 31 30 -- 26 < > 26 ANIONGAP 9 7 -- 5 < > 8 BUN 14 12 -- 12 < > 9 CREA 0.56* 0.56* -- 0.46* < > 0.49* GFRNONAA >60 >60 -- >60 < > >60 CALCIUM 8.1* 8.2* -- 8.1* < > 8.0* ALBUMIN -- -- -- 2.5* -- 2.9* TOTALPROTEIN -- -- -- 6.0 -- 6.1 BILITOT -- -- -- 0.8 -- 0.7 ALKPHOS -- -- -- 100 -- 55 ALT -- -- -- 52* -- 31 AST -- -- -- 66* -- 54* < > = values in this interval not displayed. Recent Labs Lab 05/31/17 2303 05/28/17 0826 05/27/17 2304 MG 1.8 2.0 1.8 No results for input(s): AMYLASE, LIPASE in the last 168 hours. No results for input(s): TRIG, CHOL, HDL, LDL in the last 168 hours. No results for input(s): AMMONIA in the last 168 hours. Cardiology & Digoxin Recent Labs Lab 06/02/17 03406/01/17 034 BNP 162* 423* ABG No results for input(s): PHART, PO2ART, MHA1DBI, PXR5IMT, BEART, H2IVPDDT in the last 168 h ours. No results for input(s): SPECSOURCE, PHPOCB, PCO2, PO2, HCO3, TCO2, BEART, [id number] in the last 168 hours. Drug of overdose and abuse No results for input(s): ALCOHOL, ACTMN, SALICYLATE in the last 168 hours. No results for input(s): AMPHEQUAL, BARBITURATE, BENZSCR, CANNIBSCR, AMPHETAMINE, METHADSCR , OPIATESCR in the last 168 hours. Urinalysis Recent Labs Lab 05/27/17 1843 GLUCOSEU Negative WBCUA 0-2 RBCUA 0-2 SQUAMEPIUA 15-25* BACTERIAUA Negative Point of care glucose No results for input(s): POCGLU in the last 168 hours. Micro results (more choices using dot micro) Microbiology Results (72 hrs) Procedure Component Value Units Date/Time Culture, Wound, Smear [[id number]] Collected: 06/01/171730 Order Status: Sent Lab Status: In process Updated: 06/01/171736 Specimen: Wound from Arm Radiology results (more choices using dot risresults) Xr Chest Ap Portable Result Date: 06/01/2017 PORTABLE CHEST X-RAY: 06/01/2017 5:08 AM CLINICAL HISTORY:PAF COMPARISON: 05/27/2017 at 1612 hours FINDINGS:Low volume inspiration exam. Heart size is normal. Chronic aortic arch calcif ication. No mediastinal widening. Pulmonary vasculature is within normal limits. Small amoun t of patchy airspace density in both lung bases, consistent with low volume and possible ate lectasis. No other areas of abnormal lung density. No effusion or pneumothorax. No acute bon y abnormality. IMPRESSION -Low volume inspiration exam with small amount of patchy bilateral basilar airspace density, consistent with atelectasis. Dictated and Signed by: Edi ridley MD Electronically signed: 06/01/2017 7:27 AM Serial weights: Filed Weights: 05/26/17 0622 05/26/17 1630 05/27/17 2344 05/29/17 0135 Weight: 72.1 kg (159 lb) 72.1 kg (159 lb) 75.7 kg (166 lb 14.2 oz) 81.2 kg (179 lb 0.2 oz) 05/30/17 0400 05/31/17 0500 06/02/17 0355 Weight: 81.5 kg (179 lb 10.8 oz) 75 kg (165 lb 5.5 oz) 74.7 kg (164 lb 10.9 oz) Most recent weight: Input and output 2 shifts and 3 shifts: Wt Readings from Last 1 Encounters: 06/02/17 74.7 kg (164 lb 10.9 oz) I/O last 24 Hours: In: 1946 [P.O.:1946] Out: 2650 [Urine:2650] I/O last 3 completed shifts: In: 3614 [P.O.:3464; I.V.:100; IV Piggyback:50] Out: 3500 [Urine:3500] Vitals Ranges: Temp: [36.4 C (97.5 F)-37 C (98.6 F)] 36.6 C (97.9 F) Pulse: [63-142] 70 Resp: [12-24] 13 BP: (101-146)/(60-96) 134/96 Vitals: Temp: 36.6 C (97.9 F) BP: (!) 134/96 Pulse: 70 Resp: 13 SpO2: 96 % SpO2 96 % on nasal cannula at flow rate 1L/min (dot meyvent) Subjective CC Admit May [address] Lynn, complicated by A fib with RVR and delerium She says Dr Roberts told her she can go home today No N/V nor SOB She detested the BiPAP/CPAP is currently on NC ROS See above Exam General Alert NAD Cardiac RRR 1/6 sys Extremities no sig oedema but has clot left forearm is small and not hot/red Lung clear and not labored Abdominal + BS Neuro alert and fluent (dot meyexam) Assessment and Hospital Course (dot meyprob vs meyprobap) Active Hospital Problems Diagnosis Atrial fibrillation with RVR This morning in SR, has had Amiodarone load Dr Roberts consulting (he signed off on ) and says will followup in 2-4 weeks Is on Apixaban Amiodarone oral 400 mg bid started on the Echo this admit EF 70 percent, mild valve disease, was not fluid overloaded on the Status post lumbar spinal fusion May 26 Dr Lynn Chronic Prednisone use (presume for her RA) 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 Left arm IV site swelling (thrombus) Dr Hall saw her and felt it was resolving (after sp ontaneous draining) does recommend warm compresses and antibiotics for several days Acute metabolic encephalopathy Depression, unspecified depression type Anxiety state, unspecified Delirium due to multiple etiologies Max had helped and Montes restarting on at 9 pm low dose 5 mg Tele Psych consult on (patient has developed cognitive deficits over the pasty year an d delerium here) with recommend Zyprexa low dose (seroquel other option less cardiac effects ) She says PCP is Dr Lima in [place] Resolved Hospital Problems Diagnosis No resolved problems to display. (dot meyaddendum tdnorefesh nownorefresh) (dot meyvent) (dot malnutattest is attestation for malnutrition) Plan Zyprexa 5 mg every 9 pm Stopped IV lasix given exam and Echo Pharmacy reviewed [employer]JUN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 med list Time spent with the patient (of which more than 50% was in counseling and/or coordination t he patient's care as outlined above) in minutes exceeded 35 minutes. (dot meyaddendum tdnorefesh nownorefresh) (dot meytime meycritical meysign) Jarad Montes MD 06/02/2017 7:50 [facility] Reference. This is NOT part of the patient's formal assessment section. In the assessment or plan section of notes the author may date some of the subsections with a number such as "23" or "23" to indicate the date of that entry or event. In the example below the 1st line is the original entry and the subsequent lines indicate flowing updates to the subsection: Example assessment subsection (such as CHF or CP or Pneumonia) Patient is improved today with resolution of symptoms 24th Worse with recurrence of symptoms requiring further testing Portions of this chart may have been created with [employer] voice recognition software. Occasi onal wrong-word or sound-alike substitutions may have occurred due to the inherent munson itations of voice recognition software. Please read the chart carefully and recognize, using context, where these substitutions have occurred Isacc Madrid MD - 06/02/2017 7:47 AM PDT PATIENT NAME: Dorothea Calvo : 1945: AGE: 72 y.o. ADMISSION DATE: 05/26/2017 HOSPITAL DAY NUMBER: [id number] PRIMARY CARE: Hemanth Lima MD CONSULTING PROVIDER: Isacc Sears MD CARDIOLOGY PROGRESS NOTE DATE OF SERVICE: 06/02/17 SUBJECTIVE: Patient was added on diltiazem 120 mg twice a day to slow down the heart rate and initiated on Lovenox for stroke prevention. She has converted to sinus rhythm and has been doing wel l from cardiac standpoint. There is no chest pain or chest discomfort both at rest and on ex ertion. Patient denies breathlessness. There is no palpitation dizziness or lightheadednes s. There is no ankle or leg swelling. Patient can sleep on one pillow at night without dif ficulty breathing. Her main complaint today is thigh spasm CURRENT SCHEDULED MEDS: amiodarone 400 mg Oral BID ampicillin-sulbactam 3 g Intravenous 4 times per day apixaban 5 mg Oral BID dilTIAZem 120 mg Oral Daily docusate sodium 100 mg Oral BID furosemide 20 mg Intravenous BID (8 and 16) magnesium oxide 400 mg Oral Daily polyethylene glycol 17 g Oral Daily potassium chloride 20 mEq Oral BID PC predniSONE 10 mg Oral Daily sertraline 100 mg Oral Nightly IV INFUSIONS: OBJECTIVE: PHYSICAL EXAM Latest VS: BP (!) 134/96 | Pulse 70 | Temp 36.6 C (97.9 F) (Oral) | Resp 13 | Ht 1 .651 m (5' 5") | Wt 74.7 kg (164 lb 10.9 oz) | SpO2 96% | ? No | BMI 27.40 kg/m Admit Weight: Weight: 72.1 kg (159 lb) Current weight: Weight: 74.7 kg (164 lb 10.9 oz) Vital sign ranges for last 24hrs: Input and output for last 24hrs: Temp: [36.4 C (97.5 F)-37 C (98.6 F)] 36.6 C (97.9 F) Pulse: [63-142] 70 Resp: [12-24] 13 BP: (101-146)/(60-96) 134/96 SpO2 Av.1 % Min: 90 % Max: 100 % Flow (L/min) Av Min: 1 Max: 1 05/31 1901 - 06/02 0700 In: 3614 [P.O.:3464; I.V.:100] Out: 3500 [Urine:3500] Constitutional General appearance: Female individual, well developed, well nourished, well groomed, n o acute distress Cardiovascular Palp/Percussion: PMI in 5th ICS at MCL; no lifts, thrills, palp S3 or S4. Auscultation: normal S1 S2; no gallop or rub or click Murmur: none Carotid arteries: pulses 2+, symmetric, no bruits Abdominal aorta: no enlargement or bruits Pedal pulses: pulses 2+, symmetric Peripheral circulation: no cyanosis, clubbing, edema, or varicosities Gastrointestinal Abdomen: soft, non-tender Liver and spleen: no enlargement Mental Status/Neurological Orientation: oriented to time, place, and person Affect/Mood: no depression, anxiety, or agitation Respiratory Respiratory effort: no intercostal retractions or use of accessory muscles Auscultation: no rales, rhonchi, or wheezes LABS Recent Results (from the past 24 hour(s)) ECHO Complete Collection Time: 06/01/17 11:36 Result Value Ref Range LVEF-TTE TRANSTHORACIC ECHO 70 B Type Natriuretic Peptide Collection Time: 06/02/17 3:41 Result Value Ref Range BNP 162 (H) <100 pg/mL Basic Metabolic Panel Collection Time: 06/02/17 3:41 Result Value Ref Range NA 136 136 - 149 mmol/L K 3.6 3.5 - 5.1 mmol/L CL 96 (L) 98 - 109 mmol/L CO2 31 24 - 31 mmol/L ANION GAP 9 3 - 16 mmol/L GLUCOSE 110 (H) 70 - 109 mg/dL BUN 14 7 - 18 mg/dL Creatinine, Serum/Plasma 0.56 (L) 0.60 - 1.30 mg/dL eGFR if not >60 >=60 mL/min/1.73m2 CALCIUM 8.1 (L) 8.3 - 10.5 mg/dL BUN/CREA 25.0 Extra Lavender Top Tube Collection Time: 06/02/17 3:41 Result Value Ref Range Extra Lavender Top Tube Done ECG: Telemetry shows Normal sinus rhythm, heart rate of 80 bpm. ASSESSMENT: 1. Persistent atrial fibrillation with rapid ventricular response A. Patient developed atrial fibrillation on 05/27/17 one day after lumbar surgery and was seen by the hospitalist, Dr. Resendiz. She was treated on the rate control strategy with a combination of IV diltiazem and metoprolol. Patient failed to respond to the rate control strategy so she was loaded with 1 g of IV amiodarone on 05/31/70, continuing with oral loadin g dose of 400 mg twice a day. In the past 48 hours, patient continued to go in and out of a trial fibrillation with rapid ventricular response, heart rate of 140-150 bpm. She had been receiving additional 150 mg of IV amiodarone 4. B. Echocardiogram from showed Mild left atrial dilatation. Normal left ventricula r size, wall thickness and motion. Preserved left ventricular systolic function. LVEF is 70% . Mild aortic valve insufficiency. Mild mitral valve regurgitation. Mild mitral annular calc ification. Normal right-sided pressure. Normal IVC with normal respiratory collapse. C. Patient was added on diltiazem 120 mg twice a day to slow down the heart rate and init iated on Lovenox for stroke prevention. She has converted to sinus rhythm and has been doin g well from cardiac standpoint. There is no signs and symptoms of overt congestive heart failure. He is in a class I of [place] [employer] functional class. There is no fluid retention on physical examin ation. Rate versus rhythm control strategy was discussed with patient. She is now on rhythm con trol strategy with amiodarone Risk of stroke is reviewed today; her risk factors are Hx of HTN (1), Age 65 to 74 (1) an d Female Gender (1), giving her a [id number] of 3, estimating a 3= 3.2% risk of stroke per year in atrial fibrillation. Risk of bleed on anticoagulant is also reviewed today; her ri sk factors are HTN (1) and >64 YO (1) , giving her a HAS-BLED score of 2, patient is at 2-3 = Intermediate Risk (4.1-5.8%) for risk of bleed. ESC guidelines recommend anticoagulation for scores of 1 or greater. ACC guidelines recommend anticoagulation for scores of 2 or gr eater. She was put on Lovenox subcutaneous twice a day. 2. History of spinal stenosis A. She underwent L2-3, L3-4, L4-5 Lateral Anterior Interbody Fusion ; L5-S1 Transforaminal Lumbar Interbody Fusion; Posterior Fusion @ L2-3, L3-4, L4-5, L5-S1; Surgeon: Edin Lynn MD; on 7/11/17. B. Her main complaint today is thigh spasm. 3. Rheumatoid arthritis A. On chronic steroid, hypertension, paroxysmal atrial fibrillation, COPD. 4. Hypertension A. good blood pressure control. PLAN: 1. Switch Lovenox to Eliquis 5 mg twice a day. 2. Patient stable from cardiac standpoint so I will sign off. 3. Follow-up in 2-4 weeks. Portions of this report were transcribed using voice recognition software. Every effort wa s made to ensure accuracy; however, inadvertent computerized skylights assembler errors may be pre sent. Electronically signed by: Isacc Sears MD 06/02/2017 7:47 est, Jeffry Tyler PA-C - 06/01/2017 2:26 PM PDT [facility] NEUROSURGERY PROGRESS NOTE PATIENT NAME: Dorothea Calvo AGE: 72 y.o. DATE OF SERVICE: 06/01/2017 14:26 S: continuing to work on her A-Fib. Considering anticoagulation Pleasant today. The patient has been voiding and is passing flatus. O: CURRENT MEDICATIONS: Current Facility-Administered Medications Medication Dose Route Frequency Provider Last Rate Last Dose acetaminophen (TYLENOL) tablet 650 mg 650 mg Oral Q4H PRN José Miguel Garcia PA-C 650 mg at 06/01/17 0740 amiodarone (PACERONE) tablet 400 mg 400 mg Oral BID Yann Au MD 400 mg at 05/16 06/01 0857 bisacodyl (DULCOLAX) suppository 10 mg 10 mg Rectal Daily PRN SHAUN Vasquez calcium carbonate (TUMS) chewable tablet 1,000 mg 1,000 mg Oral Q2H PRN José Miguel Garcia PA-C diphenhydrAMINE (BENADRYL) injection 12.5 mg 12.5 mg Intravenous Q4H PRN José Miguel Garcia PA-C Or diphenhydrAMINE (BENADRYL) tablet 25 mg 25 mg Oral Q4H PRN José Miguel Garcia PA-C 25 mg at 05/28/17 0205 Or diphenhydrAMINE (BENADRYL) 12.5 mg/5 mL liquid 25 mg 25 mg Oral Q4H PRN José Miguel Garcia PA-C docusate sodium (COLACE) capsule 100 mg 100 mg Oral BID José Miguel Garcia PA-C 1 00 mg at 06/01/17 0857 enalaprilat (VASOTEC) injection 1.25 mg 1.25 mg Intravenous Q6H PRN José Miguel martinez PA-C 1.25 mg at 05/26/17 1859 furosemide (LASIX) injection 20 mg 20 mg Intravenous BID (8 and 16) Yann Au MD 20 mg at 06/01/17 0800 HYDROmorphone (DILAUDID) injection 0.25-0.5 mg 0.25-0.5 mg Intravenous Q1H PRN Yann Au MD 0.5 mg at 05/29/17 0147 labetalol (TRANDATE) 5 mg/mL injection 10 mg 10 mg Intravenous Q10 Min PRN José Miguel Roman PA-C 10 mg at 05/26/17 1813 lactulose liquid 30 mL 30 mL Oral Daily PRN José Miguel Garcia PA-C magnesium hydroxide (MILK OF MAGNESIA) 400 mg/5 mL suspension 30 mL 30 mL Oral BID PRN José Miguel Garcia PA-C 30 mL at 05/28/17 0038 magnesium oxide (MAG-OX) tablet 400 mg 400 mg Oral Daily Garrisonla nena Resendiz, DO 400 mg at 06/01/17 0858 menthol (HALLS COUGH DROP) lozenge 1 lozenge 1 lozenge Buccal Q2H PRN José Miguel leblanc PA-C metoclopramide (REGLAN) 5 mg/mL injection 10 mg 10 mg Intravenous Q6H PRN SHAUN Lea 10 mg at 05/26/17 1829 metoclopramide (REGLAN) tablet 10 mg 10 mg Oral Q4H PRN José Miguel Garcia PA-C OLANZapine zydis (zyPREXA ZYDIS) disintegrating tablet 5 mg 5 mg Oral Nightly Edin Lynn MD Stopped at 05/31/17 2100 ondansetron (ZOFRAN ODT) disintegrating tablet 4 mg 4 mg Oral Q6H PRN José Miguel leblanc PA-C ondansetron (ZOFRAN) injection 4 mg 4 mg Intravenous Q6H PRN SELIN Vasquez 4 mg at 05/29/17 1218 phenol (CHLORASEPTIC) spray 1-2 spray 1-2 spray Mouth/Throat Q3H PRN José Miguel chang PA-C polyethylene glycol (MIRALAX) powder 17 g 17 g Oral Daily José Miguel Garcia PA-C 17 g at 06/01/17 0858 potassium chloride (K-DUR) ER tablet 20 mEq 20 mEq Oral BID PC Yann Au MD 20 mEq at 06/01/17 0857 predniSONE (DELTASONE) tablet 10 mg 10 mg Oral Daily Yann Au MD 10 mg at 05/16 06/01 0857 prochlorperazine (COMPAZINE) injection 10 mg 10 mg Intravenous Q6H PRN SHAUN Marrero 10 mg at 05/27/17 0607 prochlorperazine (COMPAZINE) tablet 5 mg 5 mg Oral Q6H PRN José Miguel Garcia PA-C promethazine (PHENERGAN) tablet 12.5-25 mg 12.5-25 mg Oral Q6H PRN Edin Lynn MD Or promethazine (PHENERGAN) (IV ONLY) injection 6.25 mg 6.25 mg Intravenous Q6H PRN Edin Lynn MD 6.25 mg at 05/27/17 0755 Or promethazine (PHENERGAN) (IM ONLY) injection 6.25 mg 6.25 mg Intramuscular Q6H PRN Darrick Lynn MD Or promethazine (PHENERGAN) suppository 12.5-25 mg 12.5-25 mg Rectal Q6H PRN Edin Lynn MD senna (SENOKOT) tablet 8.6 mg 8.6 mg Oral BID PRN José Miguel Garcia PA-C 8.6 mg at 05/28/17 0038 sertraline (ZOLOFT) tablet 100 mg 100 mg Oral Nightly José Miguel Garcia PA-C 100 mg at 05/31/172002 traMADol (ULTRAM) tablet 100 mg 100 mg Oral Q6H PRN Yann Au MD 100 mg at 05/16 06/01 0633 ALLERGIES: Allergies Allergen Reactions Adhesive & Tape Other (See Comments) Blisters where tape & bandages Uncoded Nonscreenable Allergen Nausea And Vomiting Problems related to anesthetic when waking up Codeine Rash Nabumetone Diarrhea PHYSICAL EXAMINATION: Temp: [36.2 C (97.2 F)-37.3 C (99.2 F)] 36.2 C (97.2 F) Pulse: [63-149] 63 Resp: [13-26] 13 BP: (101-153)/(59-89) 115/81 Intake/Output Summary (Last 24 hours) at 06/01/17 1426 Last data filed at 06/01/17 1029 Gross per 24 hour Intake 2488 ml Output 2700 ml Net -212 ml GENERAL: Dorothea Calvo is in no acute distress with unlabored respirations. HEENT: HEAD/FACE: EYES: Normocephalic and atraumatic. There are no areas of recent trauma. Normal sclerae without icterus. CHEST: Clear. HEART: Irregular, normal rate EXTREMITIES: No edema or swelling. SCD's BACK: The back incisions are dress and a drain is in place with expected output. NEUROLOGICAL EXAM: MENTAL STATUS: The patient is awake, alert, and oriented x 2. She follows simple commands. She speech is fluent, her comprehends speech well, and her repeats well. She has no apparent deficits with short or manager long term care memory. MOTOR EXAM: Motor strength is stable 4+/5 R DF and HF SENSORY EXAM: Sensory exam is stable 24 HOUR LABS: All Component Based Labs None ASSESSMENT: NEUROSURGICAL DIAGNOSES: S/p lumbar fusion HOSPITAL/GENERAL DIAGNOSES: Past Medical History: Diagnosis Date Acute pansinusitis Atrial fibrillation ([facility]) 08-18-2016 Atypical chest pain Bilateral leg pain Contusion of knee with skin surface intact Right Anterior COPD (chronic obstructive pulmonary disease) ([facility]) Hyperlipoproteinemia type Li-a Impacted cerumen of right ear Low back pain Lumbar foraminal stenosis 08/13/2016 Lumbar herniated disc L1/T2 Left Lumbar neuritis L3-L4, L4-L5, L5/S1 Lumbar spondylosis Lumbar stenosis Moderate major depression, single episode ([facility]) Neoplasm of uncertain behavior of skin PONV (postoperative nausea and vomiting) projectile vomitting waking up after surgery Primary localized osteoarthritis of left hip Rheumatoid arthritis involving multiple sites (HCC) Sacroiliac pain Spinal stenosis, lumbar Lumbar canal with neurogenic claudication Spondylolisthesis of lumbar region L3/L4, L4/L5 TB (tuberculosis) Thoracic neuritis T1-T2 PLAN: S/p lumbar fusion, Hospital day 6 - Neurologically stable and pain control is appropriate. - Metabolic encephalopathy in the setting of altered mental status, increasing confusion an d agitation and treated with frequent staff checks, family at bedside, and stopping several medications.Metabolic encephalopathy in the setting of altered mental status, increasing con fusion and agitation and treated with frequent staff checks, family at bedside, and stopping several medications. She had a psychiatric evaluation yesterday. - Afib with tachycardia - improved with amiodarone, appreciate medicine - BP improved. Contionue to monitor. Manual cuff seems more accurate - Mobilize, PT/OT - SCD's - Working on BM/bowel function. Encouraged activity and medications to assist - Disp: Eval for IPR given all of her medical issues and inability to follow restrictions c urrently - OK from a surgical stand point for anticoagulation. Concerns about fall risk. Discussed with medicine team. Likely start lovenox ELECTRONICALLY SIGNED BY: Jeffry France PA-C, 06/01/2017 14:26 Yann Dumont MD - 06/01/2017 10:32 A M PDT [facility] Hospitalist Progress Note Dorothea Calvo is a 72 y.o. female ASSESSMENT and PLAN: 1. Atrial fibrillation with RVR This patient has a previous history of paroxysmal atrial fibrillation. Echocardiography ob tained today from [facility] shows a LVEF of 0.65-0.7 with poor acoustic windows on [facility] in 08/2016. Echo was repeated today because of the persistence of atrial fibrillation with results currently pending. TSH is normal. The patient has received a 1 g IV load of a miodarone from 05/29-05/30 starting at 7 PM. Overnight on the at about 4 AM she received 150 mg bolus with 3 subsequent boluses last being given last night at about 11 PM, receivin g a total of 1600 mg IV thus far IV and being continued on 400 mg twice daily orally since c ompletion of the IV load. With delirium she has required Zyprexa but with the rapid A. fib last night we held Zyprexa. Delirium has resolved nicely thus far. Cardiology will assess this a.m. and repeat echo has been performed with results pending. Her BNP is mildly elevated with a chest x-ray showing some increased vascularity and thus 20 g of furosemide IV is given. 2. Postoperative delirium and agitation Patient postop delirium has markedly improved. Thus far has had a waxing and waning course and thus may recur thus will likely reinstitute Zyprexa once we have control of A. Fib. 3. History of chronic corticosteroid use Patient with improvement will be converted back to prednisone 10 mg daily SUBJECTIVE: Patient currently denies shortness of breath, chest pain, or other complaints. She state s she can feel the palpitations. She is alert and appropriate.. VITALS: Temp: 36.2 C (97.2 F), Pulse: 139, Resp: 16, BP: 115/81, SpO2 97 % on nasal cannula wit h humidification at flow rate 1L/min Temp Min: 36.2 C (97.2 F) Max: 37.3 C (99.2 F) Weight: 72.1 kg (159 lb) Intake/Output Summary (Last 24 hours) at 06/01/17 1032 Last data filed at 06/01/17 1029 Gross per 24 hour Intake 2488 ml Output 2700 ml Net -212 ml PHYSICAL EXAM: Cardiovascular: irregular rate and rhythm Respiratory: Clear bilaterally Abdomen: soft and nontender Neuro: without obvious paranoia. I did not test her orientation. Patient is appropriate and interacting well with the nursing staff . DIAGNOSTIC STUDIES: Available data and images were reviewed personally. Significant results and findings are a ddressed here or in the Assessment and Plan. Lab Results Component Value Date HGB 9.7 (L) 05/30/2017 HCT 28.8 (L) 05/30/2017 PLT 177 05/30/2017 WBC 10.9 05/30/2017 Lab Results Component Value Date NA 134 (L) 06/01/2017 K 4.1 06/01/2017 CL 97 (L) 06/01/2017 CO2 30 06/01/2017 CREA 0.56 (L) 06/01/2017 BUN 12 06/01/2017 MG 1.8 05/31/2017 BNP 423 (H) 06/01/2017 No results found for: POCGLU No results found for: POCGLU Xr Chest Ap Portable Result Date: 06/01/2017 PORTABLE CHEST X-RAY: 06/01/2017 5:08 AM CLINICAL HISTORY:PAF COMPARISON: 05/27/2017 at 1612 hours FINDINGS:Low volume inspiration exam. Heart size is normal. Chronic aortic arch calcif ication. No mediastinal widening. Pulmonary vasculature is within normal limits. Small amoun t of patchy airspace density in both lung bases, consistent with low volume and possible ate lectasis. No other areas of abnormal lung density. No effusion or pneumothorax. No acute bon y abnormality. IMPRESSION -Low volume inspiration exam with small amount of patchy bilateral basilar airspace density, consistent with atelectasis. Dictated and Signed by: Edi ridley MD Electronically signed: 06/01/2017 7:27 AM Total time of approximately 30 minutes was spent with the patient and/or patient's family, and/or on the patient's floor/unit, of which more than 50% was spent counseling and/or coord ination the patient's care as outlined above. Yann Au 06/01/2017 10:32 [facility] Portions of this chart may have been created with [employer] voice recognition software. Occasi onal wrong-word or sound-alike substitutions may have occurred due to the inherent munson itations of voice recognition software. Please read the chart carefully and recognize, using context, where these substitutions have occurred Garrison Jaffe DO - 05/31/2017 10:55 PM PDT [facility] BRIEF NIGHT COVERAGE NOTE Patient: Dorothea Calvo : 1945: Age: 72 y.o. MedRec: [id number] Admission date: 05/26/2017 Hospital day # : 5 Physician author: Garrison Resendiz DO Today: 05/31/2017 NIGHT HOSPITALIST COVERAGE NOTE Patient has been in and out of A. fib all day with heart rates in 130s to 140s, she require d 2 more boluses of 150 mg IV amiodarone throughout the day, but after last dose given at ab out 5:50 PM, patient still remains in A. fib in 140s to 150s, on the monitoring specialist she tri ed to convert to sinus rhythm for a few seconds and then would go back into A. fib. Patient has received complete infusion of amiodarone earlier in admission and is currently on oral amiodarone 400 mg by mouth twice a day. Assessment/Plan: Discussed case with Dr. Roberts, electronic lab technician systems protection technician, who recommended to con tinue with additional 150 mg IV Amiodarone boluses, patient may get 2-3 more boluses as need ed. Dr. Roberts also suggested consideration of adding either beta jorje or calcium channel b locker and also getting an echo in a.m. & if patient still doesn't convert out of A. Fib the n next plan will be to send patient for ablation. Will give 150 mg IV Amiodarone bolus x1 now. Will also check Mg/K levels now and replace if Mg < 2 or K < 4. Continue with cardiac monitoring. I will order an Echo for am as one hasn' t been done on this admission. Patient is also c/o right sided radicular pain from her back into right upper thigh, its sh eran, worse with movement. Will have nurse treat patient's pain as it might be contributing t o patient's poor rate control. Garrison Resendiz DO 05/31/2017 22:56 [facility] Portions of this chart may have been created with [employer] voice recognition software. Occasi onal wrong-word or sound-alike substitutions may have occurred due to the inherent munson itations of voice recognition software. Please read the chart carefully and recognize, using context, where these substitutions have occurred ADDENDUM: Patient's potassium came back 3.8 and magnesium 1.8, hence will give 40 oral potassium and 2 g IV magnesium rider. Garrison Resendiz DO 05/31/2017 23:53 [facility] Garrison Resendiz DO at 017 11:53 PM Yann Dumont MD - 05/31/2017 8:13 PM PDT [facility] Hospitalist Progress Note Dorothea Calvo is a 72 y.o. female ASSESSMENT and PLAN: 1. Atrial fibrillation with RVR This patient has a previous history of paroxysmal atrial fibrillation. She has had repeate d daily bouts of A. fib which has responded to amiodarone. She received a one-day infusion on 05/29 starting at 7 PM and on the evening of 05/30 was converted to 400 mg by mouth twice a day. She received 150 mg bolus this a.m. at 4:30 am for recurrent A. fib with conversion a fter approximately an hour. Subsequently today at 12:30pm she had A. fib lasting about an h our and received another 150 mg bolus with conversion and finally at around 5 PM this evenin g had recurrent A. fib receiving another 150 mg bolus. Given the problem with recurrence I am going to check a chest x-ray in the morning and obtain echocardiography. I'm going to ho ld her Zyprexa until we have conversion to sinus rhythm. 2. Postoperative delirium and agitation Patient postop delirium yesterday was significantly worse and resulted in her receiving 5 m g of Zyprexa orally at about 4 PM and then a 2.5 mg dose last night. Today she's been very appropriate. 3. History of chronic corticosteroid use Patient with improvement will be converted back to prednisone 10 mg daily SUBJECTIVE: Patient up or she can feel her atrial fibrillation but is denying chest pain shortness of breath or other problems associated with it.. VITALS: Temp: 37.3 C (99.1 F), Pulse: 146, Resp: 22, BP: 141/81, SpO2 95 % on nasal cannula wit h humidification at flow rate 1L/min Temp Min: 37.1 C (98.8 F) Max: 37.3 C (99.1 F) Weight: 72.1 kg (159 lb) Intake/Output Summary (Last 24 hours) at 05/31/172012 Last data filed at 05/31/17 1846 Gross per 24 hour Intake 1100 ml Output 3375 ml Net -2275 ml PHYSICAL EXAM: Cardiovascular: regular rate and rhythm Respiratory: Clear bilaterally Abdomen: soft and nontender Neuro: without obvious paranoia. I did not test her orientation. Patient is appropriate and interacting well with the nursing staff . DIAGNOSTIC STUDIES: Available data and images were reviewed personally. Significant results and findings are a ddressed here or in the Assessment and Plan. Lab Results Component Value Date HGB 9.7 (L) 05/30/2017 HCT 28.8 (L) 05/30/2017 PLT 177 05/30/2017 WBC 10.9 05/30/2017 Lab Results Component Value Date NA 133 (L) 05/30/2017 K 4.1 05/30/2017 CL 102 05/30/2017 CO2 26 05/30/2017 CREA 0.46 (L) 05/30/2017 BUN 12 05/30/2017 MG 2.0 05/28/2017 No results found for: POCGLU No results found for: POCGLU No results found. Total time of approximately 30 minutes was spent with the patient and/or patient's family, and/or on the patient's floor/unit, of which more than 50% was spent counseling and/or coord ination the patient's care as outlined above. Yann Au 05/31/2017 20:13 [facility] Portions of this chart may have been created with [employer] voice recognition software. Occasi onal wrong-word or sound-alike substitutions may have occurred due to the inherent munson itations of voice recognition software. Please read the chart carefully and recognize, using context, where these substitutions have occurred Edin Traylor MD - 9:49 AM PDT [facility] NEUROSURGERY PROGRESS NOTE PATIENT NAME: Dorothea Calvo AGE: 72 y.o. DATE OF SERVICE: 05/31/2017 9:49 S: The patient had an another episode of afib and also had another bout of delirium yesterd ay. Pleasant today. The patient has been voiding and is passing flatus. O: CURRENT MEDICATIONS: Current Facility-Administered Medications Medication Dose Route Frequency Provider Last Rate Last Dose acetaminophen (TYLENOL) tablet 650 mg 650 mg Oral Q4H JAZIELN José Miguel Garcia PA-C 650 mg at 05/28/17 0205 amiodarone (PACERONE) tablet 400 mg 400 mg Oral BID Yann Au MD 400 mg at 05/16 05/02 0830 bisacodyl (DULCOLAX) suppository 10 mg 10 mg Rectal Daily PRN SHAUN Vasquez calcium carbonate (TUMS) chewable tablet 1,000 mg 1,000 mg Oral Q2H PRN José Miguel Garcia PA-C dilTIAZem (CARDIZEM) 1 mg/mL in sodium chloride 0.9% 125 mL infusion 5-15 mg/hr Intrav enous Titrated Garrison Resendiz, DO Stopped at 05/29/17 0716 diphenhydrAMINE (BENADRYL) injection 12.5 mg 12.5 mg Intravenous Q4H PRN José Miguel Garcia PA-C Or diphenhydrAMINE (BENADRYL) tablet 25 mg 25 mg Oral Q4H PRN José Miguel Garcia PA-C 25 mg at 05/28/17 0205 Or diphenhydrAMINE (BENADRYL) 12.5 mg/5 mL liquid 25 mg 25 mg Oral Q4H PRN José Miguel Garcia PA-C docusate sodium (COLACE) capsule 100 mg 100 mg Oral BID José Miguel Garcia PA-C 1 00 mg at 05/31/17 0830 enalaprilat (VASOTEC) injection 1.25 mg 1.25 mg Intravenous Q6H PRN José Miguel martinez PA-C 1.25 mg at 05/26/17 1859 furosemide (LASIX) injection 20 mg 20 mg Intravenous BID (8 and 16) Yann Au MD 20 mg at 05/31/17 0830 HYDROmorphone (DILAUDID) injection 0.25-0.5 mg 0.25-0.5 mg Intravenous Q1H PRN Yann Au MD 0.5 mg at 05/29/17 0147 labetalol (TRANDATE) 5 mg/mL injection 10 mg 10 mg Intravenous Q10 Min PRN José Miguel Roman PA-C 10 mg at 05/26/17 1813 lactulose liquid 30 mL 30 mL Oral Daily PRN José Miguel Garcia PA-C leflunomide (ARAVA) tablet 20 mg 20 mg Oral Daily José Miguel Garcia PA-C 20 mg a t 05/31/17 0830 magnesium hydroxide (MILK OF MAGNESIA) 400 mg/5 mL suspension 30 mL 30 mL Oral BID PRN José Miguel Garcia PA-C 30 mL at 05/28/17 0038 magnesium oxide (MAG-OX) tablet 400 mg 400 mg Oral Daily Garrison Resendiz DO 400 mg at 05/31/17 0830 menthol (HALLS COUGH DROP) lozenge 1 lozenge 1 lozenge Buccal Q2H PRN José Miguel leblanc PA-C metoclopramide (REGLAN) 5 mg/mL injection 10 mg 10 mg Intravenous Q6H PRN SHAUN Lea 10 mg at 05/26/17 1829 metoclopramide (REGLAN) tablet 10 mg 10 mg Oral Q4H PRN José Miguel Garcia PA-C OLANZapine zydis (zyPREXA ZYDIS) disintegrating tablet 5 mg 5 mg Oral Nightly Edin Lynn MD ondansetron (ZOFRAN ODT) disintegrating tablet 4 mg 4 mg Oral Q6H PRN José Miguel leblanc PA-C ondansetron (ZOFRAN) injection 4 mg 4 mg Intravenous Q6H PRN SELIN Vasquez 4 mg at 05/29/17 1218 phenol (CHLORASEPTIC) spray 1-2 spray 1-2 spray Mouth/Throat Q3H PRN José Miguel chang PA-C polyethylene glycol (MIRALAX) powder 17 g 17 g Oral Daily José Miguel Garcia PA-C 17 g at 05/30/17 0841 potassium chloride (K-DUR) ER tablet 20 mEq 20 mEq Oral BID PC Yann Au MD 20 mEq at 05/31/17 0830 predniSONE (DELTASONE) tablet 10 mg 10 mg Oral Daily Yann Au MD 10 mg at 05/16 05/02 0830 prochlorperazine (COMPAZINE) injection 10 mg 10 mg Intravenous Q6H PRN SHAUN Marrero 10 mg at 05/27/17 0607 prochlorperazine (COMPAZINE) tablet 5 mg 5 mg Oral Q6H PRN José Miguel Garcia PA-C promethazine (PHENERGAN) tablet 12.5-25 mg 12.5-25 mg Oral Q6H PRN Edin Lynn MD Or promethazine (PHENERGAN) (IV ONLY) injection 6.25 mg 6.25 mg Intravenous Q6H PRN Edin Lynn MD 6.25 mg at 05/27/17 0755 Or promethazine (PHENERGAN) (IM ONLY) injection 6.25 mg 6.25 mg Intramuscular Q6H PRN Darrick Lynn MD Or promethazine (PHENERGAN) suppository 12.5-25 mg 12.5-25 mg Rectal Q6H PRN Edin Lynn MD senna (SENOKOT) tablet 8.6 mg 8.6 mg Oral BID PRN José Miguel Garcia PA-C 8.6 mg at 05/28/17 0038 sertraline (ZOLOFT) tablet 100 mg 100 mg Oral Nightly José Miguel Garcia PA-C 100 mg at 05/30/172011 traMADol (ULTRAM) tablet 100 mg 100 mg Oral Q6H PRN Yann Au MD 100 mg at 05/16 04/01 2313 ALLERGIES: Allergies Allergen Reactions Adhesive & Tape Other (See Comments) Blisters where tape & bandages Uncoded Nonscreenable Allergen Nausea And Vomiting Problems related to anesthetic when waking up Codeine Rash Nabumetone Diarrhea PHYSICAL EXAMINATION: Temp: [37.2 C (99 F)-37.3 C (99.1 F)] 37.2 C (99 F) Pulse: [66-146] 85 Resp: [15-29] 18 BP: (127-166)/(54-73) 127/54 Intake/Output Summary (Last 24 hours) at 05/31/17 0949 Last data filed at 05/31/17 0905 Gross per 24 hour Intake 1153 ml Output 3875 ml Net -2722 ml GENERAL: Dorothea Calvo is in no acute distress with unlabored respirations. HEENT: HEAD/FACE: EYES: Normocephalic and atraumatic. There are no areas of recent trauma. Normal sclerae without icterus. CHEST: Clear. HEART: Irregular, normal rate EXTREMITIES: No edema or swelling. SCD's BACK: The back incisions are dress and a drain is in place with expected output. NEUROLOGICAL EXAM: MENTAL STATUS: The patient is awake, alert, and oriented x 2. She follows simple commands. She speech is fluent, her comprehends speech well, and her repeats well. She has no apparent deficits with short or nursing home memory. MOTOR EXAM: Motor strength is stable 4+/5 R DF and HF SENSORY EXAM: Sensory exam is stable 24 HOUR LABS: All Component Based Labs None ASSESSMENT: NEUROSURGICAL DIAGNOSES: S/p lumbar fusion HOSPITAL/GENERAL DIAGNOSES: Past Medical History: Diagnosis Date Acute pansinusitis Atrial fibrillation ([facility]) 08-18-2016 Atypical chest pain Bilateral leg pain Contusion of knee with skin surface intact Right Anterior COPD (chronic obstructive pulmonary disease) ([facility]) Hyperlipoproteinemia type Li-a Impacted cerumen of right ear Low back pain Lumbar foraminal stenosis 08/13/2016 Lumbar herniated disc L1/T2 Left Lumbar neuritis L3-L4, L4-L5, L5/S1 Lumbar spondylosis Lumbar stenosis Moderate major depression, single episode ([facility]) Neoplasm of uncertain behavior of skin PONV (postoperative nausea and vomiting) projectile vomitting waking up after surgery Primary localized osteoarthritis of left hip Rheumatoid arthritis involving multiple sites ([facility]) Sacroiliac pain Spinal stenosis, lumbar Lumbar canal with neurogenic claudication Spondylolisthesis of lumbar region L3/L4, L4/L5 TB (tuberculosis) Thoracic neuritis T1-T2 PLAN: S/p lumbar fusion, Hospital day 5 - Neurologically stable and pain control is appropriate. - Metabolic encephalopathy in the setting of altered mental status, increasing confusion an d agitation and treated with frequent staff checks, family at bedside, and stopping several medications.Metabolic encephalopathy in the setting of altered mental status, increasing con fusion and agitation and treated with frequent staff checks, family at bedside, and stopping several medications. She had a psychiatric evaluation yesterday. - Afib with tachycardia - improved with amiodarone, appreciate medicine - BP improved. Contionue to monitor. Manual cuff seems more accurate - Mobilize, PT/OT - SCD's - Working on BM/bowel function. Encouraged activity and medications to assist - Disp: Eval for IPR given all of her medical issues and inability to follow restrictions c urrently ELECTRONICALLY SIGNED BY: Edin Lynn MD, 05/31/2017 9:49 Garrison Jaffe DO - 05/31/2017 4:22 AM PDTFormatti ng of this note might be different from the original. [facility] BRIEF NIGHT COVERAGE NOTE Patient: Dorothea Calvo : 1945: Age: 72 y.o. MedRec: [id number] Admission date: 05/26/2017 Hospital day # : 5 Physician author: Garrison Resendiz DO Today: 05/31/2017 NIGHT HOSPITALIST COVERAGE NOTE Patient went back into atrial fibrillation with heart rates up to 130s at around 3:41 AM. Plan: Patient completed the initial IV infusion of amiodarone yesterday evening and was sta rted on oral amiodarone. Will load patient with additional 150 mg IV amiodarone bolus 1. We'll monitor patient's response and reassess. Garrison Resendiz DO 05/31/2017 4:22 [facility] Portions of this chart may have been created with [employer] voice recognition software. Occasi onal wrong-word or sound-alike substitutions may have occurred due to the inherent munson itations of voice recognition software. Please read the chart carefully and recognize, using context, where these substitutions have occurred ADDENDUM: S/p Amiodarone bolus patient has now converted back to sinus rhythm with heart rates in the 60s to 70s at 5:08. Patient is more alert this am per nurse, asking appropriate questions a nd answers appropriately, doesn't recall what happened since the surgery. Plan: c/w oral Amiodarone. Garrison Resendiz DO 05/31/2017 5:08 [facility] Yann Dumont MD - 05/30/2017 3:58 PM PDTHospitalist follow-up Patient today has had increasing problems again with visual hallucinosis. By report she mccann d surgery on the and post surgery was complaining of some double vision but had a negat mason head CT. He received a single dose of morphine on the night of the . She was start ed on IV methyl carbamol receiving 3 IV doses, 2 on the and 1 on the . On the afte rnoon of the she was agitated with hallucinosis that would come and go. On the morning of the the patient was initially pleasant but then became markedly progressively agita karyn by noon and did require a total of 10 mg of IV Haldol to control agitation associated wi hallucinosis. Patient also received IV corticosteroids noting her chronic 5 mg prednison e dosing. Yesterday she was converted back to oral prednisone at 10 mg daily. This morning at 8 AM she received a dose of oral methyl carbamoyl. On review of her record she received tramadol both on the after having periods of agitation and subsequently yesterday and today. The patient currently is verbalizing to me and she has concern about wanting to get out of here but she is not become frankly agitated and paranoid as of yet. On the she was ve rbally abusive to the nursing staff, requesting to air when she spoke to that they call the police, and demanded on leaving in moved and twisted such that she was placing her surgery a t risk. He did respond to significant dose of haloperidol failing with 1 mg then 2 mg doses 2 but with a 5 mg dose became sedated and on awakening was appropriate and had a good day yesterday. At this point I'm going to discontinue her methyl carbamoyl. Her EKG does not show QTC pro longation on amiodarone and thus we could try more Haldol necessary but I'm going to see if the telemetry psychiatry document management consultant is available prior to medicating her. I would like to a void chronic neuroleptic agents because of her amiodarone need and the attendant risk for ar rhythmia. Her TSH is normal and her head CT from 05/26 was unremarkable. Currently she woul d require significant sedation to proceed with any other type of imaging.Electronically sign ed by Yann Au MD at 05/30/2017 4:05 PM PDTYam, Edin Rincon MD - 05/30/2017 8:27 AM PDT [facility] NEUROSURGERY PROGRESS NOTE PATIENT NAME: Dorothea Calvo AGE: 72 y.o. DATE OF SERVICE: 05/30/2017 8:28 S: The patient fell this AM. Tachycardia returned and is requiring amiodarone now. She is doing OK neurologically this AM CT of the last night was OK. Vision is fine this AM The patient has been voiding and is passing flatus. O: CURRENT MEDICATIONS: Current Facility-Administered Medications Medication Dose Route Frequency Provider Last Rate Last Dose acetaminophen (TYLENOL) tablet 650 mg 650 mg Oral Q4H PRN José Miguel Garcia PA-C 650 mg at 05/28/17 0205 amiodarone (CORDARONE) 1.8 mg/mL in dextrose 5% 500 mL infusion 0.5 mg/min Intravenous Titrated Yann Au MD 16.7 mL/hr at 05/30/17 0203 0.5 mg/min at 05/30/17 0203 amiodarone (PACERONE) tablet 400 mg 400 mg Oral BID Yann Au MD bisacodyl (DULCOLAX) suppository 10 mg 10 mg Rectal Daily PRN SHAUN Vasquez calcium carbonate (TUMS) chewable tablet 1,000 mg 1,000 mg Oral Q2H PRN José Miguel Garcia PA-C dilTIAZem (CARDIZEM) 1 mg/mL in sodium chloride 0.9% 125 mL infusion 5-15 mg/hr Intrav enous Titrated Garrison Resendiz DO Stopped at 05/29/17 0716 diphenhydrAMINE (BENADRYL) injection 12.5 mg 12.5 mg Intravenous Q4H PRN José Miguel Garcia PA-C Or diphenhydrAMINE (BENADRYL) tablet 25 mg 25 mg Oral Q4H PRN José Miguel Garcia PA-C 25 mg at 05/28/17 0205 Or diphenhydrAMINE (BENADRYL) 12.5 mg/5 mL liquid 25 mg 25 mg Oral Q4H PRN José Miguel Garcia PA-C docusate sodium (COLACE) capsule 100 mg 100 mg Oral BID José Miguel Garcia PA-C 1 00 mg at 05/29/17 2200 enalaprilat (VASOTEC) injection 1.25 mg 1.25 mg Intravenous Q6H PRN José Miguel martinez PA-C 1.25 mg at 05/26/17 1859 furosemide (LASIX) injection 20 mg 20 mg Intravenous BID (8 and 16) Yann Au MD HYDROmorphone (DILAUDID) injection 0.25-0.5 mg 0.25-0.5 mg Intravenous Q1H PRN Yann Au MD 0.5 mg at 05/29/17 0147 labetalol (TRANDATE) 5 mg/mL injection 10 mg 10 mg Intravenous Q10 Min PRN José Miguel Roman PA-C 10 mg at 05/26/17 1813 lactulose liquid 30 mL 30 mL Oral Daily PRN José Miguel Garcia PA-C leflunomide (ARAVA) tablet 20 mg 20 mg Oral Daily José Miguel Garcia PA-C 20 mg a t 05/29/17 0832 magnesium hydroxide (MILK OF MAGNESIA) 400 mg/5 mL suspension 30 mL 30 mL Oral BID PRN José Miguel Garcia PA-C 30 mL at 05/28/17 0038 magnesium oxide (MAG-OX) tablet 400 mg 400 mg Oral Daily Garrison Resendiz DO 400 mg at 05/29/17 0827 menthol (HALLS COUGH DROP) lozenge 1 lozenge 1 lozenge Buccal Q2H PRN José Miguel leblanc PA-C methocarbamol (ROBAXIN) tablet 750 mg 750 mg Oral Q8H PRN José Miguel Garcia PA-C metoclopramide (REGLAN) 5 mg/mL injection 10 mg 10 mg Intravenous Q6H PRN SHAUN Lea 10 mg at 05/26/17 1829 metoclopramide (REGLAN) tablet 10 mg 10 mg Oral Q4H PRN José Miguel Garcia PA-C ondansetron (ZOFRAN ODT) disintegrating tablet 4 mg 4 mg Oral Q6H PRN José Miguel leblanc PA-C ondansetron (ZOFRAN) injection 4 mg 4 mg Intravenous Q6H PRN SELIN Vasquez 4 mg at 05/29/17 1218 phenol (CHLORASEPTIC) spray 1-2 spray 1-2 spray Mouth/Throat Q3H PRN José Miguel chang PA-C polyethylene glycol (MIRALAX) powder 17 g 17 g Oral Daily José Miguel Garcia PA-C potassium chloride (K-DUR) ER tablet 20 mEq 20 mEq Oral BID PC Yann Au MD 20 mEq at 05/29/17 1741 predniSONE (DELTASONE) tablet 10 mg 10 mg Oral Daily Yann Au MD 10 mg at 05/16 03/02 1218 prochlorperazine (COMPAZINE) injection 10 mg 10 mg Intravenous Q6H PRN SHAUN Marrero 10 mg at 05/27/17 0607 prochlorperazine (COMPAZINE) tablet 5 mg 5 mg Oral Q6H PRN José Miguel Garcia PA-C promethazine (PHENERGAN) tablet 12.5-25 mg 12.5-25 mg Oral Q6H PRN Edin Lynn MD Or promethazine (PHENERGAN) (IV ONLY) injection 6.25 mg 6.25 mg Intravenous Q6H PRN Edin Lynn MD 6.25 mg at 05/27/17 0755 Or promethazine (PHENERGAN) (IM ONLY) injection 6.25 mg 6.25 mg Intramuscular Q6H PRN Darrick Lynn MD Or promethazine (PHENERGAN) suppository 12.5-25 mg 12.5-25 mg Rectal Q6H PRN Edin Lynn MD senna (SENOKOT) tablet 8.6 mg 8.6 mg Oral BID PRN José Miguel Garcia PA-C 8.6 mg at 05/28/17 0038 sertraline (ZOLOFT) tablet 100 mg 100 mg Oral Nightly José Miguel Garcia PA-C 100 mg at 05/29/17 2200 traMADol (ULTRAM) tablet 100 mg 100 mg Oral Q6H PRN Yann Au MD ALLERGIES: Allergies Allergen Reactions Adhesive & Tape Other (See Comments) Blisters where tape & bandages Uncoded Nonscreenable Allergen Nausea And Vomiting Problems related to anesthetic when waking up Codeine Rash Nabumetone Diarrhea PHYSICAL EXAMINATION: Temp: [36 C (96.8 F)-37.6 C (99.7 F)] 37 C (98.6 F) Pulse: [61-140] 62 Resp: [15-28] 15 BP: (115-151)/(47-92) 143/66 Intake/Output Summary (Last 24 hours) at 05/30/17 0828 Last data filed at 05/30/17 0400 Gross per 24 hour Intake 1910 ml Output 2250 ml Net -340 ml GENERAL: Dorothea Calvo is in no acute distress with unlabored respirations. HEENT: HEAD/FACE: EYES: Normocephalic and atraumatic. There are no areas of recent trauma. Normal sclerae without icterus. CHEST: Clear. HEART: Irregular, normal rate EXTREMITIES: No edema or swelling. SCD's BACK: The back incisions are dress and a drain is in place with expected output. NEUROLOGICAL EXAM: MENTAL STATUS: The patient is awake, alert, and oriented. She follows simple and complex commands. She speech is fluent, her comprehends speech well, and her repeats well. She has no apparent deficits with short or manager long term care memory. MOTOR EXAM: Motor strength is stable 4+/5 R DF SENSORY EXAM: Sensory exam is stable 24 HOUR LABS: All Component Based Labs None ASSESSMENT: NEUROSURGICAL DIAGNOSES: S/p lumbar fusion HOSPITAL/GENERAL DIAGNOSES: Past Medical History: Diagnosis Date Acute pansinusitis Atrial fibrillation ([facility]) 08-18-2016 Atypical chest pain Bilateral leg pain Contusion of knee with skin surface intact Right Anterior COPD (chronic obstructive pulmonary disease) ([facility]) Hyperlipoproteinemia type Li-a Impacted cerumen of right ear Low back pain Lumbar foraminal stenosis 08/13/2016 Lumbar herniated disc L1/T2 Left Lumbar neuritis L3-L4, L4-L5, L5/S1 Lumbar spondylosis Lumbar stenosis Moderate major depression, single episode ([facility]) Neoplasm of uncertain behavior of skin PONV (postoperative nausea and vomiting) projectile vomitting waking up after surgery Primary localized osteoarthritis of left hip Rheumatoid arthritis involving multiple sites ([facility]) Sacroiliac pain Spinal stenosis, lumbar Lumbar canal with neurogenic claudication Spondylolisthesis of lumbar region L3/L4, L4/L5 TB (tuberculosis) Thoracic neuritis T1-T2 PLAN: S/p lumbar fusion, Hospital day 4 - Neurologically stable and pain control is appropriate. - Metabolic encephalopathy in the setting of altered mental status, increasing confusion an d agitation and treated with frequent staff checks, family at bedside, and stopping several medications.Metabolic encephalopathy in the setting of altered mental status, increasing con fusion and agitation and treated with frequent staff checks, family at bedside, and stopping several medications; now improving - Afib with tachycardia - improved with amiodarone, appreciate medicine - BP improved. Contionue to monitor. Manual cuff seems more accurate - Mobilize, PT/OT - SCD's - Working on BM/bowel function. Encouraged activity and medications to assist - Disp: Likely home in 1-2 days depending on medical progress ELECTRONICALLY SIGNED BY: Edin Lynn MD, 05/30/2017 8:28 arYann rodriguez MD - 05/30/2017 7:47 AM PDT [facility] Hospitalist Progress Note Dorothea Calvo is a 72 y.o. female ASSESSMENT and PLAN: 1. Atrial fibrillation with RVR This patient has a previous history of paroxysmal atrial fibrillation. She has had repeate d daily bouts of A. fib rates have suppressed with metoprolol diltiazem however rates have b een in the 1:30 to 150 range making her at markedly increased risk for falls. Last night am iodarone started with IV bolus and infusion at around 6:30 pm when she had yet another spell of A. fib. This a.m. she had one hour of atrial fibrillation with somewhat slower rates on amiodarone at 120. Otherwise she's remained suppressed. Metoprolol and diltiazem have bee n discontinued. 2. Postoperative delirium and agitation Patient postop delirium has resolved. Currently patient is only on tramadol and when neces elsy hydromorphone for pain with her last hydromorphone being given more than 24 hours ago. Going to increase her tramadol from 5200 mg and see if this is adequate. 3. History of chronic corticosteroid use Patient with improvement will be converted back to prednisone 10 mg daily SUBJECTIVE: Patient reports that she had a controlled fall last night. Apparently she was using her walker with the INVESTOR RELATIONS DIRECTOR on one side and nurse on the other in the patient's legs gave out and th helped her to the ground. VITALS: Temp: 37 C (98.6 F), Pulse: 62, Resp: 15, BP: 143/66, SpO2 98 % on nasal cannula at roxanne w rate 1.5L/min Temp Min: 36 C (96.8 F) Max: 37.6 C (99.7 F) Weight: 72.1 kg (159 lb) Intake/Output Summary (Last 24 hours) at 05/30/17 0747 Last data filed at 05/30/17 0400 Gross per 24 hour Intake 2120 ml Output 2250 ml Net -130 ml PHYSICAL EXAM: Cardiovascular: regular rate and rhythm Respiratory: Clear bilaterally Abdomen: soft and nontender Neuro: without obvious paranoia. I did not test her orientation. Patient is more approp riate and interacting with the nursing staff well. DIAGNOSTIC STUDIES: Available data and images were reviewed personally. Significant results and findings are a ddressed here or in the Assessment and Plan. Lab Results Component Value Date HGB 9.7 (L) 05/30/2017 HCT 28.8 (L) 05/30/2017 PLT 177 05/30/2017 WBC 10.9 05/30/2017 Lab Results Component Value Date NA 133 (L) 05/30/2017 K 4.1 05/30/2017 CL 102 05/30/2017 CO2 26 05/30/2017 CREA 0.46 (L) 05/30/2017 BUN 12 05/30/2017 MG 2.0 05/28/2017 No results found for: POCGLU No results found for: POCGLU No results found. Total time of approximately 30 minutes was spent with the patient and/or patient's family, and/or on the patient's floor/unit, of which more than 50% was spent counseling and/or coord ination the patient's care as outlined above. Yann Au 05/30/2017 7:47 [facility] Portions of this chart may have been created with [employer] voice recognition software. Occasi onal wrong-word or sound-alike substitutions may have occurred due to the inherent munson itations of voice recognition software. Please read the chart carefully and recognize, using context, where these substitutions have occurred Yann Dumont MD - 0 05/29/2017 11:51 AM PDT [facility] Hospitalist Progress Note Dorothea Calvo is a 72 y.o. female ASSESSMENT and PLAN: 1. Atrial fibrillation with RVR This patient has a previous history of paroxysmal atrial fibrillation. She has had recurre nt bouts of A. fib most recently early this a.m. Patient is currently 4 L positive and I'm going to start diuresis and saline lock her IV. We will increase diltiazem to twice daily c ontinuing metoprolol at 100 mg daily. For further A. fib will likely initiate amiodarone. 2. Postoperative delirium and agitation Patient became significantly agitated today and did require repeated doses of haldol IV. S he received a total of 10 mg IV before we could get control of her agitation. At this point this a.m. patient remains calm and appropriate with her last dose of Haldol given yesterday in the early to mid day associated with her episode of severe agitation. We'll not at this point placed on routine Seroquel. Note there is nothing on exam to suggest concern relativ e to Warnicke's encephalopathy i.e. no ocular motor symptoms and the patient denies a histor y of alcohol use as she did prior to admission 3. History of chronic corticosteroid use Patient with proven will be converted back to prednisone 10 mg daily SUBJECTIVE: Patient VITALS: Temp: 36.4 C (97.5 F), Pulse: 64, Resp: 22, BP: 115/54, SpO2 92 % on room air at flow r ate 1L/min Temp Min: 35.9 C (96.6 F) Max: 37.5 C (99.5 F) Weight: 72.1 kg (159 lb) Intake/Output Summary (Last 24 hours) at 05/29/17 1154 Last data filed at 05/29/17 1000 Gross per 24 hour Intake 3375 ml Output 660 ml Net 2715 ml PHYSICAL EXAM: Cardiovascular: regular rate and rhythm Respiratory: Clear bilaterally Abdomen: soft and nontender Extremities: without operative and without obvious paranoia. I did not test her orientati on. DIAGNOSTIC STUDIES: Available data and images were reviewed personally. Significant results and findings are a ddressed here or in the Assessment and Plan. Lab Results Component Value Date HGB 10.2 (L) 05/27/2017 HCT 31.0 (L) 05/27/2017 PLT 185 05/27/2017 WBC 12.3 (H) 05/27/2017 Lab Results Component Value Date NA 137 05/28/2017 K 3.8 05/28/2017 CL 104 05/28/2017 CO2 26 05/28/2017 CREA 0.47 (L) 05/28/2017 BUN 9 05/28/2017 MG 2.0 05/28/2017 No results found for: POCGLU No results found for: POCGLU Xr Chest Ap Portable Result Date: 05/27/2017 SINGLE AP CHEST 05/27/2017 4:31 PM CLINICAL HISTORY: post op confusion COMPARISON: Chest rad iographs May 01 FINDINGS: There is thoracic aortic calcification. The cardiomediastinal si lhouette and pulmonary vasculature are otherwise unremarkable. Mild basilar reticular opaci ty favors atelectasis in the setting of slightly low lung volumes. The lungs are clear else where without visible pneumothorax or pleural effusion. Lumbar fusion hardware is minimally imaged. Bones and soft tissues are otherwise unremarkable. IMPRESSION - 1. MILD BASILAR RETICULAR OPACITY FAVORING ATELECTASIS IN THE SETTING OF LOW LUNG VOLUMES. Dictated and Sign ed by: Jossue Grayson MD Electronically signed: 05/27/2017 5:42 PM Total time of approximately 30 minutes was spent with the patient and/or patient's family, and/or on the patient's floor/unit, of which more than 50% was spent counseling and/or coord ination the patient's care as outlined above. Yann Au 05/29/2017 11:54 [facility] Portions of this chart may have been created with [employer] voice recognition software. Occasi onal wrong-word or sound-alike substitutions may have occurred due to the inherent munson itations of voice recognition software. Please read the chart carefully and recognize, using context, where these substitutions have occurred A ESTHERSuCorbin ferrer PA - 05/29/2017 8:21 AM PDT [facility] NEUROSURGERY PROGRESS NOTE PATIENT NAME: Dorothea Calvo AGE: 72 y.o. DATE OF SERVICE: 05/29/2017 8:23 S: Patient is doing well this AM. However, she was completely appropriate yesterday AM as w sayda. Ultimately she required dosing with dilaudid yesterday and this seemed to help. Pain is overall well controlled except for the incision on her right side is much mor tender. She f eels the brace is rubbing on this. Otherwise she has no CC. The patient has been voiding but no flatus or BM. O: CURRENT MEDICATIONS: Current Facility-Administered Medications Medication Dose Route Frequency Provider Last Rate Last Dose acetaminophen (TYLENOL) tablet 650 mg 650 mg Oral Q4H PRN José Miguel Garcia PA-C 650 mg at 05/28/17 0205 bisacodyl (DULCOLAX) suppository 10 mg 10 mg Rectal Daily PRN SHAUN Vasquez calcium carbonate (TUMS) chewable tablet 1,000 mg 1,000 mg Oral Q2H PRN José Miguel Garcia PA-C dilTIAZem (CARDIZEM CD) 24 hr capsule 120 mg 120 mg Oral Daily Yann Au MD 120 mg at 05/28/17 1722 dilTIAZem (CARDIZEM) 1 mg/mL in sodium chloride 0.9% 125 mL infusion 5-15 mg/hr Intrav enous Titrated Garrison Resendiz DO Stopped at 05/29/17 0716 diphenhydrAMINE (BENADRYL) injection 12.5 mg 12.5 mg Intravenous Q4H PRN José Miguel Garcia PA-C Or diphenhydrAMINE (BENADRYL) tablet 25 mg 25 mg Oral Q4H PRN José Miguel Garcia PA-C 25 mg at 05/28/17 0205 Or diphenhydrAMINE (BENADRYL) 12.5 mg/5 mL liquid 25 mg 25 mg Oral Q4H PRN José Miguel Garcia PA-C docusate sodium (COLACE) capsule 100 mg 100 mg Oral BID José Miguel Garcia PA-C 1 00 mg at 05/28/172000 enalaprilat (VASOTEC) injection 1.25 mg 1.25 mg Intravenous Q6H PRN José Miguel martinez PA-C 1.25 mg at 05/26/17 1859 haloperidol lactate (HALDOL) injection 2-5 mg 2-5 mg Intravenous RT Q1H PRN Yann rodriguez MD 5 mg at 05/28/17 1313 hydrocortisone (PF) (solu-CORTEF) injection 50 mg 50 mg Intravenous 3 times per day Shaun Au MD 50 mg at 05/29/17 0533 HYDROmorphone (DILAUDID) injection 0.25-0.5 mg 0.25-0.5 mg Intravenous Q1H PRN Yann Au MD 0.5 mg at 05/29/17 0147 labetalol (TRANDATE) 5 mg/mL injection 10 mg 10 mg Intravenous Q10 Min PRN José Miguel Roman PA-C 10 mg at 05/26/17 1813 lactulose liquid 30 mL 30 mL Oral Daily PRN José Miguel Garcia PA-C leflunomide (ARAVA) tablet 20 mg 20 mg Oral Daily José Miguel Garcia PA-C 20 mg a t 05/28/17 1722 magnesium hydroxide (MILK OF MAGNESIA) 400 mg/5 mL suspension 30 mL 30 mL Oral BID PRN José Miguel Garcia PA-C 30 mL at 05/28/17 0038 magnesium oxide (MAG-OX) tablet 400 mg 400 mg Oral Daily Garrison Resendiz DO 400 mg at 05/28/17 0613 menthol (HALLS COUGH DROP) lozenge 1 lozenge 1 lozenge Buccal Q2H PRN José Miguel leblanc PA-C methocarbamol (ROBAXIN) tablet 750 mg 750 mg Oral Q8H PRN José Miguel Garcia PA-C metoclopramide (REGLAN) 5 mg/mL injection 10 mg 10 mg Intravenous Q6H PRN SHAUN Lea 10 mg at 05/26/17 1829 metoclopramide (REGLAN) tablet 10 mg 10 mg Oral Q4H PRN José Miguel Garcia PA-C metoprolol succinate (TOPROL-XL) ER tablet 100 mg 100 mg Oral RAJWINDER Garcia PA-C 100 mg at 05/29/17 0612 ondansetron (ZOFRAN ODT) disintegrating tablet 4 mg 4 mg Oral Q6H PRN José Miguel leblanc PA-C ondansetron (ZOFRAN) injection 4 mg 4 mg Intravenous Q6H PRN SELIN Vasquez 4 mg at 05/26/17 2248 phenol (CHLORASEPTIC) spray 1-2 spray 1-2 spray Mouth/Throat Q3H PRN José Miguel chang PA-C polyethylene glycol (MIRALAX) powder 17 g 17 g Oral Daily José Miguel Garcia PA-C potassium chloride (K-DUR) ER tablet 20 mEq 20 mEq Oral BID SHAUN Chapman 20 mEq at 05/28/172000 predniSONE (DELTASONE) tablet 5 mg 5 mg Oral Daily José Miguel Garcia PA-C 5 mg a t 05/28/17 0831 prochlorperazine (COMPAZINE) injection 10 mg 10 mg Intravenous Q6H PRN SHAUN Marrero 10 mg at 05/27/17 0607 prochlorperazine (COMPAZINE) tablet 5 mg 5 mg Oral Q6H PRN José Miguel Garcia PA-C promethazine (PHENERGAN) tablet 12.5-25 mg 12.5-25 mg Oral Q6H PRN Edin Lynn MD Or promethazine (PHENERGAN) (IV ONLY) injection 6.25 mg 6.25 mg Intravenous Q6H PRN Edin Lynn MD 6.25 mg at 05/27/17 0755 Or promethazine (PHENERGAN) (IM ONLY) injection 6.25 mg 6.25 mg Intramuscular Q6H PRN Darrick Lynn MD Or promethazine (PHENERGAN) suppository 12.5-25 mg 12.5-25 mg Rectal Q6H PRN Edin Lynn MD senna (SENOKOT) tablet 8.6 mg 8.6 mg Oral BID PRN José Miguel Garcia PA-C 8.6 mg at 05/28/17 0038 sertraline (ZOLOFT) tablet 100 mg 100 mg Oral Nightly José Miguel Garcia PA-C 100 mg at 05/28/172000 sodium chloride 0.9% (NS) infusion Intravenous Continuous José Miguel Garcia PA-C 100 mL/hr at 05/28/17 1523 traMADol (ULTRAM) tablet 50 mg 50 mg Oral Q6H PRN SHAUN Chapman 50 mg at 05/16 01/02 2212 ALLERGIES: Allergies Allergen Reactions Adhesive & Tape Other (See Comments) Blisters where tape & bandages Uncoded Nonscreenable Allergen Nausea And Vomiting Problems related to anesthetic when waking up Codeine Rash Nabumetone Diarrhea PHYSICAL EXAMINATION: Temp: [35.9 C (96.6 F)-37.5 C (99.5 F)] 37.2 C (99 F) Pulse: [61-142] 140 Resp: [14-25] 23 BP: (90-148)/(46-91) 106/54 Intake/Output Summary (Last 24 hours) at 05/29/17 0823 Last data filed at 05/29/17 0718 Gross per 24 hour Intake 3555 ml Output 680 ml Net 2875 ml GENERAL: Dorothea Calvo is in no acute distress with unlabored respirations. I jada d on a 7-8 minute conversation with her and she seemed completely lucid and appropriate. No evidence of ongoing confusion at this time. HEENT: HEAD/FACE: EYES: Normocephalic and atraumatic. There are no areas of recent trauma. Normal sclerae without icterus. CHEST: Clear. HEART: Regular. EXTREMITIES: No edema or swelling. SCD's BACK: The back incisions are dress and a drain is in place with expected output. NEUROLOGICAL EXAM: MENTAL STATUS: The patient is awake, alert, and oriented. She follows simple and complex commands. She speech is fluent, her comprehends speech well, and her repeats well. She has no apparent deficits with short or manager long term care memory. MOTOR EXAM: Motor strength is stable 4+/5 Rt DF SENSORY EXAM: Sensory exam is stable 24 HOUR LABS: All Component Based Labs None ASSESSMENT: NEUROSURGICAL DIAGNOSES: S/p lumbar fusion HOSPITAL/GENERAL DIAGNOSES: Past Medical History: Diagnosis Date Acute pansinusitis Atrial fibrillation ([facility]) 08-18-2016 Atypical chest pain Bilateral leg pain Contusion of knee with skin surface intact Right Anterior COPD (chronic obstructive pulmonary disease) ([facility]) Hyperlipoproteinemia type Li-a Impacted cerumen of right [...] L4/L5 TB (tuberculosis) Thoracic neuritis T1-T2 PLAN: S/p lumbar fusion, Hospital day 3 - Neurologically stable and pain control is appropriate. -medically stable. Patient has been in a normal rhythm in the ICU.Unfurtunately she continu es to cycle in and out of delirious episodes irrational behavior and not following her preca utions regarding movement. Has displayed poor judgement as a result of her delirium. We will see how she does today. -Thank you hospitalist team for your help. - Mobilize, PT/OT - SCD's - Working on BM/bowel function. Encouraged activity and medications to assist - No drain is present - Disp: Likely home in 1-2 days Depends now on hospitalists opinion for when she is safe to DC home. ELECTRONICALLY SIGNED BY: SHAUN Gooden, 05/29/2017 8:23 Yann Dumont MD - 05/28/2017 6:33 PM PDTF ormatting of this note might be different from the original. [facility] Hospitalist Progress Note Dorothea Calvo is a 72 y.o. female ASSESSMENT and PLAN: 1. Atrial fibrillation with RVR This patient has a previous history of paroxysmal atrial fibrillation. We did discuss her risk factors for developing A. fib including her recent surgery chest x-ray not showing sign ificant volume overload albeit the patient otherwise knows is +2.4 L. He is on metoprolol 1 00 mg daily and today with recurrent versus of A. fib showed flutter at 130 to 150. This di d respond to a diltiazem drip in addition to being helped by suppression of her agitation wi th delirium. I'm going to add Cardizem CD 120 mg daily to her regimen. I did discuss with the patient t he option of anticoagulation would certainly will be considered in the future but currently is not appropriate given recent surgery and confusion. 2. Postoperative delirium and agitation Patient became significantly agitated today and did require repeated doses of haldol IV. S he received a total of 10 mg IV before we get control of her agitation. A patient currently is much more sedated but arouses easily and toxin no longer is manifesting agitation. For now we'll continue when necessary Haldol albeit should this persist will consider starting o ral Seroquel 3. History of chronic corticosteroid use Patient with agitation did receive 100 mg of hydrocortisone as a stress dose with a history of 5 mg prednisone given chronically. She was dropped to 50 mg every 8 hours and tomorrow will likely move to 10 mg of prednisone if she continues to show improvement. SUBJECTIVE: Patient this morning was initially somewhat guarded and then became frankly belligerent a nd verbally abusive. She currently is much more settled down and denies shortness of breath abdominal discomfort or other significant uncontrolled pains. The patient had her pain med s held initially because of delirium yesterday and after control of agitation with the patie nt appearing to be in significant discomfort we did start hydromorphone 0.25-0.5 mg when nec essary. VITALS: Temp: 37.1 C (98.8 F), Pulse: 63, Resp: 17, BP: 137/54, SpO2 98 % on nasal cannula at f low rate 2L/min Temp Min: 35.9 C (96.6 F) Max: 37.5 C (99.5 F) Weight: 72.1 kg (159 lb) Intake/Output Summary (Last 24 hours) at 05/28/17 1833 Last data filed at 05/28/17 1800 Gross per 24 hour Intake 2710 ml Output 412 ml Net 2298 ml PHYSICAL EXAM: Cardiovascular: Irregular rate and rhythm Respiratory: Clear bilaterally Abdomen: soft and nontender Extremities: without edema Neurological: Patient combative and would not comply to testing. She did move all 4 extre mities. She would not agree to orientation testing but clearly appeared to have her thyroid and confusion about her location DIAGNOSTIC STUDIES: Available data and images were reviewed personally. Significant results and findings are a ddressed here or in the Assessment and Plan. Lab Results Component Value Date HGB 10.2 (L) 05/27/2017 HCT 31.0 (L) 05/27/2017 PLT 185 05/27/2017 WBC 12.3 (H) 05/27/2017 Lab Results Component Value Date NA 137 05/28/2017 K 3.8 05/28/2017 CL 104 05/28/2017 CO2 26 05/28/2017 CREA 0.47 (L) 05/28/2017 BUN 9 05/28/2017 MG 2.0 05/28/2017 No results found for: POCGLU No results found for: POCGLU Ct Head Wo Contrast Result Date: 05/27/2017 CT HEAD WO CONTRAST 05/26/2017 8:56 PM HISTORY: post op hypertension with double vision. COM PARISON: None. PROTOCOL: Axial images of the head were obtained along with coronal and sagit corinne reformations. FINDINGS: There is mild age-related brain volume loss with enlargement of the ventricles, cisterns, and sulci. A minimal amount of periventricular white matter hypode nsity are present, consistent with small vessel ischemic disease. The brain parenchyma demon strates no evidence for acute infarct, mass lesion, or hemorrhage. The brainstem is unremark able. The cerebellum is normal. The pituitary gland is grossly normal. Mild atherosclerosis are visualized of the carotid and vertebral arteries. Bilateral ocular prostheses are visual ized. Moderate mucosal thickening are in the ethmoid sinuses. There is a small mucus retenti on cyst in the posterior aspect of the left maxillary sinus. Minimal mucosal thickening is i n the left maxillary sinus. Mastoid air cells are normal. Calvarium, temporal bones, and sku ll base structures are unremarkable. IMPRESSION - No acute findings. Senescent changes. A pr eliminary report was sent by [employer] with no significant discrepancy. Dictated and S igned by: Ilya Garcia MD Electronically signed: 05/27/2017 8:24 AM Xr Chest Ap Portable Result Date: 05/27/2017 SINGLE AP CHEST 05/27/2017 4:31 PM CLINICAL HISTORY: post op confusion COMPARISON: Chest rad iographs May 01 FINDINGS: There is thoracic aortic calcification. The cardiomediastinal si lhouette and pulmonary vasculature are otherwise unremarkable. Mild basilar reticular opaci ty favors atelectasis in the setting of slightly low lung volumes. The lungs are clear else where without visible pneumothorax or pleural effusion. Lumbar fusion hardware is minimally imaged. Bones and soft tissues are otherwise unremarkable. IMPRESSION - 1. MILD BASILAR RETICULAR OPACITY FAVORING ATELECTASIS IN THE SETTING OF LOW LUNG VOLUMES. Dictated and Sign ed by: Jossue Grayson MD Electronically signed: 05/27/2017 5:42 PM Total time of approximately 30 minutes was spent with the patient and/or patient's family, and/or on the patient's floor/unit, of which more than 50% was spent counseling and/or coord ination the patient's care as outlined above. Yann Au 05/28/2017 18:33 [facility] Portions of this chart may have been created with [employer] voice recognition software. Occasi onal wrong-word or sound-alike substitutions may have occurred due to the inherent munson itations of voice recognition software. Please read the chart carefully and recognize, using context, where these substitutions have occurred uCorbin ferrer PA - 05/28/2017 8:12 AM PDT [facility] NEUROSURGERY PROGRESS NOTE PATIENT NAME: Dorothea Calvo AGE: 72 y.o. DATE OF SERVICE: 05/28/2017 8:13 S: Patient is doing well this AM. She went into A-fib with RVR last night and was transferr ed to ICU. She is in normal sinus rhythm this AM and Dr. Au is planning on transferring her down to again. Pain is overall well controlled except for the incision on her right s rishi is much mor tender. She feels the brace is rubbing on this. Otherwise she has no CC. The patient has been voiding but no flatus or BM. O: CURRENT MEDICATIONS: Current Facility-Administered Medications Medication Dose Route Frequency Provider Last Rate Last Dose acetaminophen (TYLENOL) tablet 650 mg 650 mg Oral Q4H PRN José Miguel Garcia PA-C 650 mg at 05/28/17 0205 bisacodyl (DULCOLAX) suppository 10 mg 10 mg Rectal Daily PRN SHAUN Vasquez calcium carbonate (TUMS) chewable tablet 1,000 mg 1,000 mg Oral Q2H PRN José Miguel Garcia PA-C dilTIAZem (CARDIZEM) 1 mg/mL in sodium chloride 0.9% 125 mL infusion 5-15 mg/hr Intrav enous Titrated Garrison Resendiz DO Stopped at 05/28/17 0239 dilTIAZem (CARDIZEM) 5 mg/mL injection Stopped at 05/28/17 0030 dilTIAZem (CARDIZEM) injection 10 mg 10 mg Intravenous Once Garrison Resendiz DO Sto pped at 05/28/17 0237 diphenhydrAMINE (BENADRYL) injection 12.5 mg 12.5 mg Intravenous Q4H PRN José Miguel Garcia PA-C Or diphenhydrAMINE (BENADRYL) tablet 25 mg 25 mg Oral Q4H PRN José Miguel Garcia PA-C 25 mg at 05/28/17 0205 Or diphenhydrAMINE (BENADRYL) 12.5 mg/5 mL liquid 25 mg 25 mg Oral Q4H PRN José Miguel Garcia PA-C docusate sodium (COLACE) capsule 100 mg 100 mg Oral BID José Miguel Garcia PA-C 1 00 mg at 05/27/17 2212 enalaprilat (VASOTEC) injection 1.25 mg 1.25 mg Intravenous Q6H PRN José Miguel martinez PA-C 1.25 mg at 05/26/17 1859 labetalol (TRANDATE) 5 mg/mL injection 10 mg 10 mg Intravenous Q10 Min PRN José Miguel Roman PA-C 10 mg at 05/26/17 1813 lactulose liquid 30 mL 30 mL Oral Daily PRN José Miguel Garcia PA-C leflunomide (ARAVA) tablet 20 mg 20 mg Oral Daily José Miguel Garcia PA-C magnesium hydroxide (MILK OF MAGNESIA) 400 mg/5 mL suspension 30 mL 30 mL Oral BID PRN José Miguel Garcia PA-C 30 mL at 05/28/17 0038 magnesium oxide (MAG-OX) tablet 400 mg 400 mg Oral Daily Garrison Resendiz DO 400 mg at 05/28/17 0613 menthol (HALLS COUGH DROP) lozenge 1 lozenge 1 lozenge Buccal Q2H PRN José Miguel leblanc PA-C methocarbamol (ROBAXIN) tablet 750 mg 750 mg Oral Q8H PRN José Miguel Garcia PA-C metoclopramide (REGLAN) 5 mg/mL injection 10 mg 10 mg Intravenous Q6H PRN SHAUN Lea 10 mg at 05/26/17 1829 metoclopramide (REGLAN) tablet 10 mg 10 mg Oral Q4H PRN José Miguel Garcia PA-C metoprolol succinate (TOPROL-XL) ER tablet 100 mg 100 mg Oral QAM José Miguel Garcia PA-C 100 mg at 05/27/17 0755 ondansetron (ZOFRAN ODT) disintegrating tablet 4 mg 4 mg Oral Q6H PRN José Miguel leblanc PA-C ondansetron (ZOFRAN) injection 4 mg 4 mg Intravenous Q6H PRN SELIN Vasquez 4 mg at 05/26/17 2248 phenol (CHLORASEPTIC) spray 1-2 spray 1-2 spray Mouth/Throat Q3H PRN José Miguel chang PA-C polyethylene glycol (MIRALAX) powder 17 g 17 g Oral Daily José Miguel Garcia PA-C potassium chloride (K-DUR) ER tablet 20 mEq 20 mEq Oral BID SHAUN Chapman 20 mEq at 05/27/17 2212 predniSONE (DELTASONE) tablet 5 mg 5 mg Oral Daily José Miguel Garcia PA-C 5 mg a t 05/27/17 0755 prochlorperazine (COMPAZINE) injection 10 mg 10 mg Intravenous Q6H PRN SHAUN Marrero 10 mg at 05/27/17 0607 prochlorperazine (COMPAZINE) tablet 5 mg 5 mg Oral Q6H PRN José Miguel Garcia PA-C promethazine (PHENERGAN) tablet 12.5-25 mg 12.5-25 mg Oral Q6H PRN Edin Lynn MD Or promethazine (PHENERGAN) (IV ONLY) injection 6.25 mg 6.25 mg Intravenous Q6H PRN Edin Lynn MD 6.25 mg at 05/27/17 0755 Or promethazine (PHENERGAN) (IM ONLY) injection 6.25 mg 6.25 mg Intramuscular Q6H PRN Darrick Lynn MD Or promethazine (PHENERGAN) suppository 12.5-25 mg 12.5-25 mg Rectal Q6H PRN Edin Lynn MD senna (SENOKOT) tablet 8.6 mg 8.6 mg Oral BID PRN José Miguel Garcia PA-C 8.6 mg at 05/28/17 0038 sertraline (ZOLOFT) tablet 100 mg 100 mg Oral Nightly José Miguel Garcia PA-C 100 mg at 05/27/17 2212 sodium chloride 0.9% (NS) infusion Intravenous Continuous José Miguel Garcia PA-C 100 mL/hr at 05/28/17 0451 1,000 mL at 05/28/17 0451 traMADol (ULTRAM) tablet 50 mg 50 mg Oral Q6H PRN SHAUN Chapman 50 mg at 05/16 01/02 2212 ALLERGIES: Allergies Allergen Reactions Adhesive & Tape Other (See Comments) Blisters where tape & bandages Uncoded Nonscreenable Allergen Nausea And Vomiting Problems related to anesthetic when waking up Codeine Rash Nabumetone Diarrhea PHYSICAL EXAMINATION: Temp: [36.3 C (97.3 F)-37.5 C (99.5 F)] 36.3 C (97.3 F) Pulse: [74-154] 82 Resp: [15-24] 19 BP: (108-188)/(54-112) 129/64 Intake/Output Summary (Last 24 hours) at 05/28/17 0813 Last data filed at 05/28/17 0418 Gross per 24 hour Intake 2080 ml Output 532 ml Net 1548 ml GENERAL: Dorothea Calvo is in no acute distress with unlabored respirations. I jada d on a 7-8 minute conversation with her and she seemed completely lucid and appropriate. No evidence of ongoing confusion at this time. HEENT: HEAD/FACE: EYES: Normocephalic and atraumatic. There are no areas of recent trauma. Normal sclerae without icterus. CHEST: Clear. HEART: Regular. EXTREMITIES: No edema or swelling. SCD's BACK: The back incisions are dress and a drain is in place with expected output. NEUROLOGICAL EXAM: MENTAL STATUS: The patient is awake, alert, and oriented. She follows simple and complex commands. She speech is fluent, her comprehends speech well, and her repeats well. She has no apparent deficits with short or nursing home memory. MOTOR EXAM: Motor strength is stable 4+/5 Rt DF SENSORY EXAM: Sensory exam is stable 24 HOUR LABS: All Component Based Labs None ASSESSMENT: NEUROSURGICAL DIAGNOSES: S/p lumbar fusion HOSPITAL/GENERAL DIAGNOSES: Past Medical History: Diagnosis Date Acute pansinusitis Atrial fibrillation ([facility]) 08-18-2016 Atypical chest pain Bilateral leg pain Contusion of knee with skin surface intact Right Anterior COPD (chronic obstructive pulmonary disease) ([facility]) Hyperlipoproteinemia type Li-a Impacted cerumen of right ear Low back pain Lumbar foraminal stenosis 08/13/2016 Lumbar herniated disc L1/T2 Left Lumbar neuritis L3-L4, L4-L5, L5/S1 Lumbar spondylosis Lumbar stenosis Moderate major depression, single episode ([facility]) Neoplasm of uncertain behavior of skin PONV (postoperative nausea and vomiting) projectile vomitting waking up after surgery Primary localized osteoarthritis of left hip Rheumatoid arthritis involving multiple sites ([facility]) Sacroiliac pain Spinal stenosis, lumbar Lumbar canal with neurogenic claudication Spondylolisthesis of lumbar region L3/L4, L4/L5 TB (tuberculosis) Thoracic neuritis T1-T2 PLAN: S/p lumbar fusion, Hospital day 2 - Neurologically stable and pain control is appropriate. -medically stable. Patient has been in a normal rhythm in the ICU. I have spoken with Dr. Miguelangel medina and he is planning on moving her down to 3E later This AM. She seems much more lucid this AM. Hopefully this continues. If she goes to 3E I do notthik she needs a sitter but wou ld benefit from a room close to the RN station. - Mobilize, PT/OT - SCD's - Working on BM/bowel function. Encouraged activity and medications to assist - Drain output is low and it can be removed now - Disp: Likely home in 1-2 days ELECTRONICALLY SIGNED BY: SHAUN Gooden, 05/28/2017 8:13 Chantal Phillips RN - 05/27/2017 11:14 PM PDT Report given to MJ Martinez. Pt to be transferred to step down unit now. Corbin Bell PA - 05/27/2017 4:46 PM P DT [facility] NEUROSURGERY PROGRESS NOTE PATIENT NAME: Dorothea Calvo AGE: 72 y.o. DATE OF SERVICE: 05/27/2017 16:53 S: patient is doing OK this AM. BP is better. some nausea. During AM rounds patient was apparently fine and appropriate. As day progressed she reportedly became more confused and a gitated. She reportedly waxes and wanes out of this state. I got there at about 16;15 and al though I could tell there was some confusion by the questions and statements she made she wa s fairly lucid and A&O times 3. Her daughter was at her bedside and reports that 20 minutes to my arrival she was much worse. Staff confirms this and reports agitation as well with judy portillo. She was commenting about people in the room that were not there and was found doing typin g motion even though there was no typewriter. She reportedly needed to use the restroom this AM and staff was "too slow" to get to her so she got up on her own. Unfortunately this resu lted in a unwitnessed fall. Patient did not complain of any increased back pain as a result of this. She states she did not hit her head and there was no apparent signs of trauma to h er head. She does report that her knee is a little sore from the fall and reports it was her right leg that gave out on her that caused the fall. Her daughter states she is a "lightwei ght" when it comes to medication and typically only takes trama dol at home. She has not rec eived any pain meds since 1:00 AM on 05/27. The patient has been voiding but no flatus or BM. O: CURRENT MEDICATIONS: Current Facility-Administered Medications Medication Dose Route Frequency Provider Last Rate Last Dose acetaminophen (TYLENOL) tablet 650 mg 650 mg Oral Q4H PRN José Miguel Garcia PA-C bisacodyl (DULCOLAX) suppository 10 mg 10 mg Rectal Daily PRN SHAUN Vasquez calcium carbonate (TUMS) chewable tablet 1,000 mg 1,000 mg Oral Q2H PRN José Miguel Garcia PA-C diphenhydrAMINE (BENADRYL) injection 12.5 mg 12.5 mg Intravenous Q4H PRN José Miguel Garcia PA-C Or diphenhydrAMINE (BENADRYL) tablet 25 mg 25 mg Oral Q4H PRN José Miguel Garcia PA-C Or diphenhydrAMINE (BENADRYL) 12.5 mg/5 mL liquid 25 mg 25 mg Oral Q4H PRN José Miguel Garcia PA-C docusate sodium (COLACE) capsule 100 mg 100 mg Oral BID José Miguel Garcia PA-C enalaprilat (VASOTEC) injection 1.25 mg 1.25 mg Intravenous Q6H PRN José Miguel martinez PA-C 1.25 mg at 05/26/17 185 labetalol (TRANDATE) 5 mg/mL injection 10 mg 10 mg Intravenous Q10 Min PRN José Miguel Roman PA-C 10 mg at 05/26/171812 lactulose liquid 30 mL 30 mL Oral Daily PRN José Miguel Garcia PA-C leflunomide (ARAVA) tablet 20 mg 20 mg Oral Daily José Miguel Garcia PA-C magnesium hydroxide (MILK OF MAGNESIA) 400 mg/5 mL suspension 30 mL 30 mL Oral BID PRN José Miguel Garcia PA-C menthol (HALLS COUGH DROP) lozenge 1 lozenge 1 lozenge Buccal Q2H PRN José Miguel leblanc PA-C methocarbamol (ROBAXIN) tablet 750 mg 750 mg Oral Q8H PRN José Miguel Garcia PA-C metoclopramide (REGLAN) 5 mg/mL injection 10 mg 10 mg Intravenous Q6H PRN SHAUN Lea 10 mg at 07/11/17 1829 metoclopramide (REGLAN) tablet 10 mg 10 mg Oral Q4H PRN José Miguel Garcia PA-C metoprolol succinate (TOPROL-XL) ER tablet 100 mg 100 mg Oral QAM José Miguel Garcia PA-C 100 mg at 05/27/17 0755 ondansetron (ZOFRAN ODT) disintegrating tablet 4 mg 4 mg Oral Q6H PRN José Miguel leblanc PA-C ondansetron (ZOFRAN) injection 4 mg 4 mg Intravenous Q6H PRN SELIN Vasquez 4 mg at 05/26/17 2248 phenol (CHLORASEPTIC) spray 1-2 spray 1-2 spray Mouth/Throat Q3H PRN José Miguel chang PA-C polyethylene glycol (MIRALAX) powder 17 g 17 g Oral Daily José Miguel Garcia PA-C predniSONE (DELTASONE) tablet 5 mg 5 mg Oral Daily José Miguel Garcia PA-C 5 mg a t 05/27/17 0755 prochlorperazine (COMPAZINE) injection 10 mg 10 mg Intravenous Q6H PRN SHAUN Marrero 10 mg at 05/27/17 0607 prochlorperazine (COMPAZINE) tablet 5 mg 5 mg Oral Q6H PRN José Miguel Garcia PA-C promethazine (PHENERGAN) tablet 12.5-25 mg 12.5-25 mg Oral Q6H PRN Edin Lynn MD Or promethazine (PHENERGAN) (IV ONLY) injection 6.25 mg 6.25 mg Intravenous Q6H PRN Edin Lynn MD 6.25 mg at 05/27/17 0755 Or promethazine (PHENERGAN) (IM ONLY) injection 6.25 mg 6.25 mg Intramuscular Q6H PRN Darrick Lynn MD Or promethazine (PHENERGAN) suppository 12.5-25 mg 12.5-25 mg Rectal Q6H PRN Edin Lynn MD senna (SENOKOT) tablet 8.6 mg 8.6 mg Oral BID PRN José Miguel Garcia PA-C sertraline (ZOLOFT) tablet 100 mg 100 mg Oral Nightly José Miguel Garcia PA-C sodium chloride 0.9% (NS) infusion Intravenous Continuous José Miguel Garcia PA-C 100 mL/hr at 05/26/17 1643 traMADol (ULTRAM) tablet 50 mg 50 mg Oral Q6H PRN SHAUN Chapman ALLERGIES: Allergies Allergen Reactions Adhesive & Tape Other (See Comments) Blisters where tape & bandages Uncoded Nonscreenable Allergen Nausea And Vomiting Problems related to anesthetic when waking up Codeine Rash Nabumetone Diarrhea PHYSICAL EXAMINATION: Temp: [35.6 C (96 F)-37.5 C (99.5 F)] 37.5 C (99.5 F) Pulse: [53-83] 83 Resp: [12-22] 18 BP: (112-204)/(65-88) 170/78 Intake/Output Summary (Last 24 hours) at 05/27/17 1653 Last data filed at 05/27/17 1616 Gross per 24 hour Intake 1977 ml Output 2120 ml Net -143 ml GENERAL: Dorothea Calvo is in no acute distress with unlabored respirations. She is A &O x3 and carries on an appropriate conversation answering all questions appropriately. A fe w minutes later she began making comments about her surroundings that conveyed confusion and a lack of appreciation as to where we were at. HEENT: HEAD/FACE: EYES: Normocephalic and atraumatic. There are no areas of recent trauma. Normal sclerae without icterus. CHEST: Clear. HEART: Regular. EXTREMITIES: No edema or swelling. SCD's BACK: The back incisions are dress and a drain is in place with expected output. NEUROLOGICAL EXAM: MENTAL STATUS: The patient is awake, alert, and oriented. She follows simple and complex commands. She speech is fluent, her comprehends speech well, and her repeats well. She has apparent deficits with short term memory. MOTOR EXAM: Motor strength is stable 4+/5 Rt DF SENSORY EXAM: Sensory exam is stable 24 HOUR LABS: All Component Based Labs None ASSESSMENT: NEUROSURGICAL DIAGNOSES: S/p lumbar fusion Altered mental status HOSPITAL/GENERAL DIAGNOSES: Past Medical History: Diagnosis Date Acute pansinusitis Atrial fibrillation ([facility]) 08-18-2016 Atypical chest pain Bilateral leg pain Contusion of knee with skin surface intact Right Anterior COPD (chronic obstructive pulmonary disease) ([facility]) Hyperlipoproteinemia type Li-a Impacted cerumen of right ear Low back pain Lumbar foraminal stenosis 08/13/2016 Lumbar herniated disc L1/T2 Left Lumbar neuritis L3-L4, L4-L5, L5/S1 Lumbar spondylosis Lumbar stenosis Moderate major depression, single episode ([facility]) Neoplasm of uncertain behavior of skin PONV (postoperative nausea and vomiting) projectile vomitting waking up after surgery Primary localized osteoarthritis of left hip Rheumatoid arthritis involving multiple sites ([facility]) Sacroiliac pain Spinal stenosis, lumbar Lumbar canal with neurogenic claudication Spondylolisthesis of lumbar region L3/L4, L4/L5 TB (tuberculosis) Thoracic neuritis T1-T2 PLAN: S/p lumbar fusion, Hospital day 1 - Neurologically stable and pain control is appropriate. - BP improving. Contionue to monitor. Manual cuff seems more accurate. With new onset of altered mental status I am ordering CBC, UA, CMP, blood cultures, chest x-ray, and EKG. I wo uld order a CT but she just had one last night. She did have an unwitnessed fall but thee ar e no signs of any trauma to her head. If all other work up is negative I will discuss ruth xiao another CT of head with Dr. Lynn. In the meantime I have stopped all narcotics and flexeril. She has tramadol ordered PRN and I have asked that they use this only if pain is getting significant. Patient has been receiving her home steroid dose of steroids + hydrocortisone. Will conside r if confusion is potentially attributable to this depending on work up. - Mobilize, PT/OT - SCD's - Working on BM/bowel function. Encouraged activity and medications to assist - Drain output is as expected. Continue drain - Disp: Likely home in 1-2 days ELECTRONICALLY SIGNED BY: SHAUN Gooden, 05/27/2017 16:[address] RN - 05/27/2017 8:45 AM P BRENNANhis RN was called into room. Patient found sitting on floor by bed with bed alarm on. Pat nikki stated that she needed to go to the bathroom and didn't want to bother staff so had att empted to get up on her own to go to bathroom. Initial vitals were 144/65, pulse was 83, sat s 97 on 3L [place], with respirations at 20. Corbin Boo notified by Mj Fernandez. Notify Corbin if increased back pain or need of sitter. No injuries noted. Electronically signed by: Macie Mccullough RN 05/27/2017 9:11 A ESTHERWest, Jeffry Tyler PA-C - 05/27/2017 7:27 AM PDT . [facility] NEUROSURGERY PROGRESS NOTE PATIENT NAME: Dorothea Calvo AGE: 72 y.o. DATE OF SERVICE: 05/27/2017 7:27 S: patient is doing OK this AM. BP is better. some nausea. CT of the last night was OK. Vision is fine this AM The patient has been voiding but no flatus or BM. O: CURRENT MEDICATIONS: Current Facility-Administered Medications Medication Dose Route Frequency Provider Last Rate Last Dose acetaminophen (TYLENOL) tablet 650 mg 650 mg Oral Q4H PRN José Miguel Garcia PA-C bisacodyl (DULCOLAX) suppository 10 mg 10 mg Rectal Daily PRN SHAUN Vaqsuez calcium carbonate (TUMS) chewable tablet 1,000 mg 1,000 mg Oral Q2H PRN José Miguel Garcia PA-C cyclobenzaprine (FLEXERIL) tablet 10 mg 10 mg Oral Q8H PRN José Miguel Garcia PA-C diphenhydrAMINE (BENADRYL) injection 12.5 mg 12.5 mg Intravenous Q4H PRN José Miguel Garcia PA-C Or diphenhydrAMINE (BENADRYL) tablet 25 mg 25 mg Oral Q4H PRN José Miguel Garcia PA-C Or diphenhydrAMINE (BENADRYL) 12.5 mg/5 mL liquid 25 mg 25 mg Oral Q4H PRN José Miguel Garcia PA-C docusate sodium (COLACE) capsule 100 mg 100 mg Oral BID José Miguel Garcia PA-C enalaprilat (VASOTEC) injection 1.25 mg 1.25 mg Intravenous Q6H PRN José Miguel martinez PA-C 1.25 mg at 05/26/17 1859 HYDROmorphone (DILAUDID) injection 0.2-0.4 mg 0.2-0.4 mg Intravenous Q3H PRN Edin Robins am, MD labetalol (TRANDATE) 5 mg/mL injection 10 mg 10 mg Intravenous Q10 Min PRN José Miguel Roman PA-C 10 mg at 05/26/17 1813 lactulose liquid 30 mL 30 mL Oral Daily PRN José Miguel Garcia PA-C leflunomide (ARAVA) tablet 20 mg 20 mg Oral Daily José Miguel Garcia PA-C magnesium hydroxide (MILK OF MAGNESIA) 400 mg/5 mL suspension 30 mL 30 mL Oral BID PRN José Miguel Garcia PA-C menthol (HALLS COUGH DROP) lozenge 1 lozenge 1 lozenge Buccal Q2H PRN José Miguel leblanc PA-C methocarbamol (ROBAXIN) tablet 750 mg 750 mg Oral Q8H PRN José Miguel Garcia PA-C metoclopramide (REGLAN) 5 mg/mL injection 10 mg 10 mg Intravenous Q6H PRN SHAUN Lea 10 mg at 05/26/17 1829 metoclopramide (REGLAN) tablet 10 mg 10 mg Oral Q4H PRN José Miguel Garcia PA-C metoprolol succinate (TOPROL-XL) ER tablet 100 mg 100 mg Oral QAM José Miguel Garcia PA-C 100 mg at 05/26/17 1811 morphine injection 1-2 mg 1-2 mg Intravenous Q1H PRN José Miguel Garcia PA-C 1 mg at 05/27/17 0111 ondansetron (ZOFRAN ODT) disintegrating tablet 4 mg 4 mg Oral Q6H PRN José Miguel leblanc PA-C ondansetron (ZOFRAN) injection 4 mg 4 mg Intravenous Q6H PRN SELIN Vasquez 4 mg at 05/26/17 2248 oxyCODONE (ROXICODONE) tablet 10-20 mg 10-20 mg Oral Q4H PRN SELIN Vasquez phenol (CHLORASEPTIC) spray 1-2 spray 1-2 spray Mouth/Throat Q3H PRN José Miguel chang PA-C polyethylene glycol (MIRALAX) powder 17 g 17 g Oral Daily José Miguel Garcia PA-C predniSONE (DELTASONE) tablet 5 mg 5 mg Oral Daily José Miguel Garcia PA-C prochlorperazine (COMPAZINE) injection 10 mg 10 mg Intravenous Q6H PRN SHAUN Marrero 10 mg at 05/27/17 0607 prochlorperazine (COMPAZINE) tablet 5 mg 5 mg Oral Q6H PRN José Miguel Garcia PA-C promethazine (PHENERGAN) tablet 12.5-25 mg 12.5-25 mg Oral Q6H PRN Edin Lynn MD Or promethazine (PHENERGAN) (IV ONLY) injection 6.25 mg 6.25 mg Intravenous Q6H PRN Edin Lynn MD Or promethazine (PHENERGAN) (IM ONLY) injection 6.25 mg 6.25 mg Intramuscular Q6H PRN Darrick Lynn MD Or promethazine (PHENERGAN) suppository 12.5-25 mg 12.5-25 mg Rectal Q6H PRN Edin Lynn MD senna (SENOKOT) tablet 8.6 mg 8.6 mg Oral BID PRN José Miguel Garcia PA-C sertraline (ZOLOFT) tablet 100 mg 100 mg Oral Nightly José Miguel Garcia PA-C sodium chloride 0.9% (NS) infusion Intravenous Continuous José Miguel Garcia PA-C 100 mL/hr at 05/26/17 1643 ALLERGIES: Allergies Allergen Reactions Adhesive & Tape Other (See Comments) Blisters where tape & bandages Uncoded Nonscreenable Allergen Nausea And Vomiting Problems related to anesthetic when waking up Codeine Rash Nabumetone Diarrhea PHYSICAL EXAMINATION: Temp: [35.6 C (96 F)-37.4 C (99.3 F)] 35.6 C (96 F) Pulse: [53-93] 62 Resp: [11-24] 16 BP: (112-229)/(64-102) 142/72 Intake/Output Summary (Last 24 hours) at 05/27/17 0795 Last data filed at 05/27/17 0607 Gross per 24 hour Intake 2597 ml Output 2800 ml Net -203 ml GENERAL: Dorothea Calvo is in no acute distress with unlabored respirations. HEENT: HEAD/FACE: EYES: Normocephalic and atraumatic. There are no areas of recent trauma. Normal sclerae without icterus. CHEST: Clear. HEART: Regular. EXTREMITIES: No edema or swelling. SCD's BACK: The back incisions are dress and a drain is in place with expected output. NEUROLOGICAL EXAM: MENTAL STATUS: The patient is awake, alert, and oriented. She follows simple and complex commands. She speech is fluent, her comprehends speech well, and her repeats well. She has no apparent deficits with short or nursing home memory. MOTOR EXAM: Motor strength is stable 4+/5 Rt DF SENSORY EXAM: Sensory exam is stable 24 HOUR LABS: All Component Based Labs None ASSESSMENT: NEUROSURGICAL DIAGNOSES: S/p lumbar fusion HOSPITAL/GENERAL DIAGNOSES: Past Medical History: Diagnosis Date Acute pansinusitis Atrial fibrillation ([facility]) 08-18-2016 Atypical chest pain Bilateral leg pain Contusion of knee with skin surface intact Right Anterior COPD (chronic obstructive pulmonary disease) ([facility]) Hyperlipoproteinemia type Li-a Impacted cerumen of right ear Low back pain Lumbar foraminal stenosis 08/13/2016 Lumbar herniated disc L1/T2 Left Lumbar neuritis L3-L4, L4-L5, L5/S1 Lumbar spondylosis Lumbar stenosis Moderate major depression, single episode ([facility]) Neoplasm of uncertain behavior of skin PONV (postoperative nausea and vomiting) projectile vomitting waking up after surgery Primary localized osteoarthritis of left hip Rheumatoid arthritis involving multiple sites ([facility]) Sacroiliac pain Spinal stenosis, lumbar Lumbar canal with neurogenic claudication Spondylolisthesis of lumbar region L3/L4, L4/L5 TB (tuberculosis) Thoracic neuritis T1-T2 PLAN: S/p lumbar fusion, Hospital day 1 - Neurologically stable and pain control is appropriate. - BP improving. Contionue to monitor. Manual cuff seems more accurate - Mobilize, PT/OT - SCD's - Working on BM/bowel function. Encouraged activity and medications to assist - Drain output is as expected. Continue drain - Disp: Likely home in 1-2 days ELECTRONICALLY SIGNED BY: Jeffry France PA-C, 05/27/2017 7:27 Edin Traylor MD - 05/26/2017 9:48 PM P DTSeen on night rounds. Diplopia resolved. C/o right side pain and also back pain. N/V persists. CT no acute findings. A/P: Adjust nausea medications and pain medications. Edin Lynn Corbin Bell PA - 05/26/2017 8:17 PM PDTI received a call earlier today about patient having nausea and vomit ing. She only had oral medication ordered. Patient has a pre op history of previous post op nausea and vomiting, so I was not too concerned about that. I was then told she was experien cing some double vision as she was waking up from anesthesia. However, since she was just wa bharathi up I did not worry about that too much initially either. I then got a call about 7:30 s tating she was having some significant hypertension issues. It had been climbing and RN gave 10 of labetalol. Blood pressure continued to go up so they gave another 10mg. After this th e rechecked it again and machine told them systolic was 210. At this poing they gave vasotec and called me at around 7:30. I asked them if they checked BP manually or machine and the s aid machine. I then asked them to check in manually in 10 min and call me. They did this and blood pressure was "down" to 112/70 and pulse 53. At this point I am wondering if the previ ous blood pressures were really that high. In either case patient was still complaining of d ouble vision. RN stated other suarez was normal from a neuro standpoint other than some weakne ss in right leg and numbness in right leg. My biggest concern was the ongoing double vision. I called and spoke with hospitalist to discuss case. iT was decided to get a stat non contr ast CT tonight to RO any significant acute event. If (-) and symptoms persist, I will talk to Dr. Lynn tomorrow about possible MRI if he feels this is appropriate. Otherwise our goal f or tonight will be to keep her systolic pressure under 150mm Hg. If it goes above this, Rn i s to call Dr Resendiz and he is aware of this plan. We will also need to get a stat read from the radiologist, [facility] umshauna in this encounter Plan of Treatment + +------+--------+ + + | Name | Type | Priori | Associated Diagnoses | Order Schedule | | | | ty | | | + +------+--------+ + + | DME: Walker | DME | Routin | Gait abnormality | DME 1 Time for 1 | | | | e | | Occurrences starting | | | | | | 05/26/2017 until | | | | | | 05/26/2017 | + +------+--------+ + + documented as of this encounter Procedures + +--------+ + + + | Procedure Name | Priori | Date/Time | Associated Diagnosis | Comments | | | ty | | | | + +--------+ + + + | ECHO-EXTERNAL SCAN | | 06/12/2017 | | Results for this | | | | 12:00 AM | | procedure are in the | | | | PDT | | results section. | + +--------+ + + + | EXTRA LAVENDER TOP | Routin | 06/06/2017 | | Results for this | | TUBE | e | 6:23 AM | | procedure are in the | | | | PDT | | results section. | + +--------+ + + + | BASIC METABOLIC | Routin | 06/06/2017 | | Results for this | | PANEL | e | 6:23 AM | | procedure are in the | | | | PDT | | results section. | + +--------+ + + + | EXTRA LAVENDER TOP | Routin | 06/05/2017 | | Results for this | | TUBE | e | 6:44 AM | | procedure are in the | | | | PDT | | results section. | + +--------+ + + + | BASIC METABOLIC | Routin | 06/05/2017 | | Results for this | | PANEL | e | 6:01 AM | | procedure are in the | | | | PDT | | results section. | + +--------+ + + + | URINALYSIS WITH | Routin | 06/04/2017 | | Results for this | | MICROSCOPIC WITH | e | 7:41 PM | | procedure are in the | | CULTURE IF INDICATED | | PDT | | results section. | + +--------+ + + + | XR HIP RIGHT 2-3 | STAT | 06/04/2017 | | Results for this | | VIEWS | | 1:31 PM | | procedure are in the | | | | PDT | | results section. | + +--------+ + + + | EXTRA LAVENDER TOP | Routin | 06/04/2017 | | Results for this | | TUBE | e | 6:51 AM | | procedure are in the | | | | PDT | | results section. | + +--------+ + + + | BASIC METABOLIC | Routin | 06/04/2017 | | Results for this | | PANEL | e | 6:04 AM | | procedure are in the | | | | PDT | | results section. | + +--------+ + + + | BASIC METABOLIC | Routin | 06/03/2017 | | Results for this | | PANEL | e | 5:26 AM | | procedure are in the | | | | PDT | | results section. | + +--------+ + + + | EXTRA LAVENDER TOP | Routin | 06/02/2017 | | Results for this | | TUBE | e | 3:41 AM | | procedure are in the | | | | PDT | | results section. | + +--------+ + + + | B TYPE NATRIURETIC | Routin | 06/02/2017 | | Results for this | | PEPTIDE | e | 3:41 AM | | procedure are in the | | | | PDT | | results section. | + +--------+ + + + | BASIC METABOLIC | Routin | 06/02/2017 | | Results for this | | PANEL | e | 3:41 AM | | procedure are in the | | | | PDT | | results section. | + +--------+ + + + | CULTURE, WOUND, | Routin | 06/01/2017 | | Results for this | | SMEAR | e | 5:31 PM | | procedure are in the | | | | PDT | | results section. | + +--------+ + + + | ECHO COMPLETE | Routin | 06/01/2017 | | Results for this | | | e | 11:36 AM | | procedure are in the | | | | PDT | | results section. | + +--------+ + + + | XR CHEST AP PORTABLE | Routin | 06/01/2017 | | Results for this | | | e | 5:17 AM | | procedure are in the | | | | PDT | | results section. | + +--------+ + + + | EXTRA LAVENDER TOP | Routin | 06/01/2017 | | Results for this | | TUBE | e | 3:46 AM | | procedure are in the | | | | PDT | | results section. | + +--------+ + + + | B TYPE NATRIURETIC | Routin | 06/01/2017 | | Results for this | | PEPTIDE | e | 3:46 AM | | procedure are in the | | | | PDT | | results section. | + +--------+ + + + | BASIC METABOLIC | Routin | 06/01/2017 | | Results for this | | PANEL | e | 3:46 AM | | procedure are in the | | | | PDT | | results section. | + +--------+ + + + | POTASSIUM | STAT | 05/31/2017 | | Results for this | | | | 11:03 PM | | procedure are in the | | | | PDT | | results section. | + +--------+ + + + | MAGNESIUM | STAT | 05/31/2017 | | Results for this | | | | 11:03 PM | | procedure are in the | | | | PDT | | results section. | + +--------+ + + + | ECG 12 LEAD | Routin | 05/31/2017 | | Results for this | | | e | 2:13 PM | | procedure are in the | | | | PDT | | results section. | + +--------+ + + + | ECG 12 LEAD | Routin | 05/31/2017 | | Results for this | | | e | 12:04 PM | | procedure are in the | | | | PDT | | results section. | + +--------+ + + + | ECG 12 LEAD | JOSE DAVID | 05/30/2017 | | Results for this | | | | 3:50 PM | | procedure are in the | | | | PDT | | results section. | + +--------+ + + + | ECG 12 LEAD | Timed | 05/30/2017 | | Results for this | | | | 5:56 AM | | procedure are in the | | | | PDT | | results section. | + +--------+ + + + | TSH | Routin | 05/30/2017 | | Results for this | | | e | 3:37 AM | | procedure are in the | | | | PDT | | results section. | + +--------+ + + + | COMPREHENSIVE | Routin | 05/30/2017 | | Results for this | | METABOLIC PANEL | e | 3:37 AM | | procedure are in the | | | | PDT | | results section. | + +--------+ + + + | CBC WITH | Routin | 05/30/2017 | | Results for this | | DIFFERENTIAL | e | 3:36 AM | | procedure are in the | | | | PDT | | results section. | + +--------+ + + + | ECG 12 LEAD | Routin | 05/29/2017 | | Results for this | | | e | 6:46 PM | | procedure are in the | | | | PDT | | results section. | + +--------+ + + + | EXTRA LAVENDER TOP | Routin | 05/28/2017 | | Results for this | | TUBE | e | 8:26 AM | | procedure are in the | | | | PDT | | results section. | + +--------+ + + + | MAGNESIUM | Routin | 05/28/2017 | | Results for this | | | e | 8:26 AM | | procedure are in the | | | | PDT | | results section. | + +--------+ + + + | BASIC METABOLIC | Routin | 05/28/2017 | | Results for this | | PANEL | e | 8:26 AM | | procedure are in the | | | | PDT | | results section. | + +--------+ + + + | ECG 12 LEAD | STAT | 05/28/2017 | | Results for this | | | | 12:27 AM | | procedure are in the | | | | PDT | | results section. | + +--------+ + + + | CULTURE, MRSA | Routin | 05/27/2017 | | Results for this | | | e | 11:42 PM | | procedure are in the | | | | PDT | | results section. | + +--------+ + + + | POTASSIUM | STAT | 05/27/2017 | | Results for this | | | | 11:04 PM | | procedure are in the | | | | PDT | | results section. | + +--------+ + + + | MAGNESIUM | STAT | 05/27/2017 | | Results for this | | | | 11:04 PM | | procedure are in the | | | | PDT | | results section. | + +--------+ + + + | ECG 12 LEAD | STAT | 05/27/2017 | | Results for this | | | | 10:20 PM | | procedure are in the | | | | PDT | | results section. | + +--------+ + + + | URINALYSIS WITH | Routin | 05/27/2017 | | Results for this | | MICROSCOPIC WITH | e | 6:43 PM | | procedure are in the | | CULTURE IF INDICATED | | PDT | | results section. | + +--------+ + + + | CULTURE, BLOOD | STAT | 05/27/2017 | | Results for this | | | | 4:59 PM | | procedure are in the | | | | PDT | | results section. | + +--------+ + + + | CULTURE, BLOOD | STAT | 05/27/2017 | | Results for this | | | | 4:49 PM | | procedure are in the | | | | PDT | | results section. | + +--------+ + + + | CBC WITH | Routin | 05/27/2017 | | Results for this | | DIFFERENTIAL | e | 4:49 PM | | procedure are in the | | | | PDT | | results section. | + +--------+ + + + | COMPREHENSIVE | Routin | 05/27/2017 | | Results for this | | METABOLIC PANEL | e | 4:49 PM | | procedure are in the | | | | PDT | | results section. | + +--------+ + + + | XR CHEST AP PORTABLE | Routin | 05/27/2017 | | Results for this | | | e | 4:31 PM | | procedure are in the | | | | PDT | | results section. | + +--------+ + + + | ECG 12 LEAD | Routin | 05/27/2017 | | Results for this | | | e | 4:20 PM | | procedure are in the | | | | PDT | | results section. | + +--------+ + + + | CT HEAD WO CONTRAST | Routin | 05/26/2017 | | Results for this | | | e | 8:56 PM | | procedure are in the | | | | PDT | | results section. | + +--------+ + + + | XR LUMBAR SPINE 2 OR | STAT | 05/26/2017 | | Results for this | | 3 VW | | 4:09 PM | | procedure are in the | | | | PDT | | results section. | + +--------+ + + + | FL FUNMI STATS NO | Routin | 05/26/2017 | | Results for this | | CHARGE | e | 12:10 PM | | procedure are in the | | | | PDT | | results section. | + +--------+ + + + | FUSION LUMBAR W/ | | 05/26/2017 | Lumbar | | | LATERAL APPROACH | | 7:56 AM | radiculopathy | | | (XLIF) | | PDT | (M54.16), | | | | | | Spondylolisthesis of | | | | | | lumbar region | | | | | | (M43.16), Lumbar | | | | | | facet arthropathy | | | | | | (M12.88), Foraminal | | | | | | stenosis of lumbar | | | | | | region (M99.83), | | | | | | Other spondylosis, | | | | | | lumbar region | | | | | | (M47.896), DDD | | | | | | (degenerative disc | | | | | | disease), lumbar | | | | | | (M51.36), Lumbar | | | | | | foraminal stenosis | | | | | | (M99.83) | | + +--------+ + + + +---+--------+ | | Case | | | Notes | | | | | | Origin | | | al | | | Reques | | | t | | | Inform | | | ation | | | Sent | | | Over | | | 05/22/ | | | 2016:N | | | euromo | | | nitori | | | ng: | | | Neurov | | | isionM | | | IS; | | | Side: | | | Instru | | | ments: | | | | | | C-arm, | | | | | | Drill, | | | | | | Micros | | | cope, | | | MetrxI | | | mplant | | | s: | | | XLIF | | | Precep | | | t TLIF | | | cages | | | | | | Biolog | | | ics: | | | BMP | | | Grafto | | | n | | | Instru | | | mentat | | | ion | | | Rep to | | | | | | Notify | | | : Pedro | | | | | | Conkli | | | n (Nuv | | | | | | asive) | | | | | | Table: | | | | | | Jackso | | | n [place] | | | | | | FrameE | | | st | | | time: | | | 240 | | | via | | | MaryGr | | | john | | | (Lync) | | | on | | | 05/22 | | | @ 1228 | +---+--------+ | | | | | Specia | | | l | | | Needs | | | Pedro | | | (Nuvas | | | mason) - | | | XLIF, | | | | | | Precep | | | t, | | | TLIF | | | CagesT | | | able: | | | Jackso | | | n [place]ham | +---+--------+ documented in this encounter Results ECHO-EXTERNAL SCAN (06/12/2017 12:00 AM PDT) + + + | Narrative | Performed At | + + + | Ordered by an | | | unspecified provider. | | + + + Extra Lavender Top Tube (06/06/2017 6:23 AM PDT) + +-------+ + + + | Component | Value | Ref Range | Performed | Pathologist | | | | | At | Signature | + +-------+ + + + | Extra | Done | | [facility] | | | Lavender | | | [facility] | | | Top Tube | | | [facility]ICAL | | | | | | CENTER - | | | | | | LABORATORY | | + +-------+ + + + + + | Specimen | + + | Blood | + + + + + + + | Performing | Address | City/State/Zipcode | Phone Number | | Organization | | | | + + + + + | [facility] | [address] | [place] | [phone] | | [facility] | | [address] | | | - LABORATORY | | | | + + + + + Basic Metabolic Panel (06/06/2017 6:23 AM PDT) + + + + + + | Component | Value | Ref Range | Performed | Pathologist | | | | | At | Signature | + + + + + + | Na | 139 | 136 - 149 | [facility] | | | | | mmol/L | [facility] | | | | | | MEDICAL | | | | | | CENTER - | | | | | | LABORATORY | | + + + + + + | K | 3.2 (L) | 3.5 - 5.1 | [facility] | | | | | mmol/L | [facility] | | | | | | MEDICAL | | | | | | CENTER - | | | | | | LABORATORY | | + + + + + + | Cl | 103 | 98 - 109 mmol/L | [facility] | | | | | | [facility] | | | | | | MEDICAL | | | | | | CENTER - | | | | | | LABORATORY | | + + + + + + | CO2 | 28 | 24 - 31 mmol/L | [facility] | | | | | | [facility] | | | | | | [facility] | | | | | | CENTER - | | | | | | LABORATORY | | + + + + + + | Anion Gap | 8 | 3 - 16 mmol/L | [facility] | | | | | | [facility] | | | | | | [facility] | | | | | | CENTER - | | | | | | LABORATORY | | + + + + + + | Glucose | 95 | 70 - 109 mg/dL | [facility] | | | | | | [facility] | | | | | | [facility] | | | | | | CENTER - | | | | | | LABORATORY | | + + + + + + | BUN | 8 | 7 - 18 mg/dL | [facility] | | | | | | [facility] | | | | | | [facility] | | | | | | CENTER - | | | | | | LABORATORY | | + + + + + + | Creatinine | 0.61 | 0.60 - 1.30 | [facility] | | | | | mg/dL | [facility] | | | | | | MEDICAL | | | | | | CENTER - | | | | | | LABORATORY | | + + + + + + | eGFR if not | >60Comment: GLOMERULAR | >=60 | [facility] | | | | FILTRATION | mL/min/1.73m2 | [facility] | | | CYPRIOT | RATE,ESTIMATED | | MEDICAL | | | | mL/min/1.78h9Zvhs than | | CENTER - | | [...] + + + + | Calcium | 8.2 (L) | 8.3 - 10.5 | [facility] | | | | | mg/dL | [facility] | | | | | | [facility] | | | | | | CENTER - | | | | | | LABORATORY | | + + + + + + | BUN/Creatin | 13.1 | | [facility] | | | ine Ratio | | | [facility] | | | | | | [...] + + | [facility] | [address] | [place] | [phone] | | [facility] | | [address] | | | - LABORATORY | | | | + + + + + Extra Lavender Top Tube (06/05/2017 6:44 AM PDT) + +-------+ + + + | Component | Value | Ref Range | Performed | Pathologist | | | | | At | Signature | + +-------+ + + + | Extra | Done | | [facility] | | | Lavender | | | [facility] | | | Top Tube | | | MEDICAL | | | | | | CENTER - | | | | | | LABORATORY | | + +-------+ + + + + + | Specimen | + + | Blood | + + + + + + + | Performing | Address | City/State/Zipcode | Phone Number | | Organization | | | | + + + + + | [facility] | [address] | [place] | [phone] | | [facility] | | [address] | | | - LABORATORY | | | | + + + + + Basic Metabolic Panel (06/05/2017 6:01 AM PDT) + + + + + + | Component | Value | Ref Range | Performed | Pathologist | | | | | At | Signature | + + + + + + | Na | 142 | 136 - 149 | [facility] | | | | | mmol/L | [facility] | | | | | | MEDICAL | | | | | | CENTER - | | | | | | LABORATORY | | + + + + + + | K | 3.4 (L) | 3.5 - 5.1 | [facility] | | | | | mmol/L | [facility] | | | | | | MEDICAL | | | | | | CENTER - | | | | | | LABORATORY | | + + + + + + | Cl | 106 | 98 - 109 mmol/L | [facility] | | | | | | [facility] | | | | | | [facility] | | | | | | CENTER - | | | | | | LABORATORY | | + + + + + + | CO2 | 29 | 24 - 31 mmol/L | [facility] | | | | | | [facility] | | | | | | MEDICAL | | | | | | CENTER - | | | | | | LABORATORY | | + + + + + + | Anion Gap | 7 | 3 - 16 mmol/L | [facility] | | | | | | [facility] | | | | | | MEDICAL | | | | | | CENTER - | | | | | | LABORATORY | | + + + + + + | Glucose | 103 | 70 - 109 mg/dL | [facility] | | | | | | [facility] | | | | | | MEDICAL | | | | | | CENTER - | | | | | | LABORATORY | | + + + + + + | BUN | 7 | 7 - 18 mg/dL | [facility] | | | | | | [facility] | | | | | | MEDICAL | | | | | | CENTER - | | | | | | LABORATORY | | + + + + + + | Creatinine | 0.66 | 0.60 - 1.30 | [facility] | | | | | mg/dL | [facility] | | | | | | MEDICAL | | | | | | CENTER - | | | | | | LABORATORY | | + + + + + + | eGFR if not | >60Comment: GLOMERULAR | >=60 | [facility] | | | | FILTRATION | mL/min/1.73m2 | [facility] | | | CYPRIOT | RATE,ESTIMATED | | MEDICAL | | | | mL/min/1.08n6Lfnd than | | CENTER - | | [...] + + + + | Calcium | 8.4 | 8.3 - 10.5 | [facility] | | | | | mg/dL | [facility] | | | | | | [facility] | | | | | | CENTER - | | | | | | LABORATORY | | + + + + + + | BUN/Creatin | 10.6 | | [facility] | | | ine [...] | + + + + + | [facility] | [address] | [place] | [phone] | | [facility] | | [address] | | | - LABORATORY | | | | + + + + + Urinalysis with Microscopic with Culture if Indicated (06/04/2017 7:41 PM PDT) + + + + + + | Component | Value | Ref Range | Performed | Pathologist | | | | | At | Signature | + + + + + + | Color, | Yellow | Light Yellow, | [facility] | | | Urine | | Yellow, Straw | [facility] | | | | | | MEDICAL | | | | | | CENTER - | | | | | | LABORATORY | | + + + + + + | Clarity | Hazy (A) | Clear | [facility] | | | | | | [facility] | | | | | | MEDICAL | | | | | | CENTER - | | | | | | LABORATORY | | + + + + + + | pH, Urine | 6.0 | 5.0 - 8.0 | [facility] | | | | | | [facility] | | | | | | MEDICAL | | | | | | CENTER - | | | | | | LABORATORY | | + + + + + + | Specific | 1.021 | 1.001 - 1.030 | [facility] | | | [place], | | | [facility] | | | Urine | | | MEDICAL | | | | | | CENTER - | | | | | | LABORATORY | | + + + + + + | Protein, | Negative | Negative | [facility] | | | Urine | | | [facility] | | | | | | MEDICAL | | | | | | CENTER - | | | | | | LABORATORY | | + + + + + + | Blood, | Negative | Negative | [facility] | | | Urine | | | [facility] | | | | | | MEDICAL | | | | | | CENTER - | | | | | | LABORATORY | | + + + + + + | Glucose, | Negative | Negative | [facility] | | | Urine | | | [facility] | | | | | | MEDICAL | | | | | | CENTER - | | | | | | LABORATORY | | + + + + + + | Ketones, | Negative | Negative | [facility] | | | Urine | | | [facility] | | | | | | MEDICAL | | | | | | CENTER - | | | | | | LABORATORY | | + + + + + + | Bilirubin, | Negative | Negative | [facility] | | | Urine | | | [facility] | | | | | | MEDICAL | | | | | | CENTER - | | | | | | LABORATORY | | + + + + + + | Nitrite, | Negative | Negative | [facility] | | | Urine | | | [facility] | | | | | | MEDICAL | | | | | | CENTER - | | | | | | LABORATORY | | + + + + + + | Leukocyte | Negative | Negative | [facility] | | | Esterase, | | | [facility] | | | Urine | | | MEDICAL | | | | | | CENTER - | | | | | | LABORATORY | | + + + + + + | Urobilinoge | Negative | 0.2 mg/dL, 1.0 | [facility] | | | n, Urine | | mg/dL, Negative | [facility] | | | | | | MEDICAL | | | | | | CENTER - | | | | | | LABORATORY | | + + + + + + | White Blood | 2-5 (A) | 0 - 2 /HPF | [facility] | | | Cells, | | | [facility] | | | Urine | | | MEDICAL | | | | | | CENTER - | | | | | | LABORATORY | | + + + + + + | Red Blood | 0-2 | 0 - 2 /HPF | [facility] | | | Cells, | | | [facility] | | | Urine | | | MEDICAL | | | | | | CENTER - | | | | | | LABORATORY | | + + + + + + | Squamous | 25-50 (A) | 0 - 2 /LPF | [facility] | | | Epithelial | | | [facility] | | | Cells, | | | MEDICAL | | | Urine | | | CENTER - | | | | | | LABORATORY | | + + + + + + | Bacteria, | Negative | Negative /HPF | [facility] | | | Urine | | | [facility] | | | | | | MEDICAL | | | | | | CENTER - | | | | | | LABORATORY | | + + + + + + | Mucus, | Present (A) | Negative /LPF | [facility] | | | Urine | | | [facility] | | | | | | MEDICAL | | | | | | CENTER - | | | | | | LABORATORY | | + + + + + + | Hyaline | 0-2 | 0 - 2 /LPF | [facility] | | | Casts, | | | [facility] | | | Urine | | | MEDICAL | | | | | | CENTER - | | | | | | LABORATORY | | + + + + + + | Urine | Urine Culture Not | | [facility] | | | Comment | Indicated | | [facility] | | | | | | MEDICAL | | | | | | CENTER - | | | | | | LABORATORY | | + + + + + + + + | Specimen | + + | Urine - Urine | | specimen obtained by | | clean catch | | procedure (specimen) | + + + + + + + | Performing | Address | City/State/Zipcode | Phone Number | | Organization | | | | + + + + + | [facility] | [address] | [place] | [phone] | | [facility] | | [id number] | | | - LABORATORY | | | | + + + + + XR Hip Right 2-3 Views (06/04/2017 1:31 PM PDT) + + | Specimen | + + | | + + + + + | Narrative | Performed At | + + + | RIGHT HIP AND PELVIS: 06/04/2017 1:16 PM CLINICAL HISTORY: Right | | | hip/groin pain COMPARISON: None FINDINGS: AP view the pelvis | | | and frog leg view of the right hip. No fracture or focal bony | | | destructive change. Femoral acetabular relationships are within | | | normal limits. Mild joint space narrowing, similar to the left. Mild | | | sclerosis of the subchondral bone of the acetabulum. Small joint | | | marginal osteophytes on the humeral head. Mild narrowing and | | | sclerosis of the sacroiliac joints bilaterally. Symphysis pubis is | | | unremarkable. Lower lumbar fusion changes are present. Iliac and | | | femoral artery vascular calcifications. No other soft tissue | | | abnormalities. IMPRESSION - 1. 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 No radiographic changes to | | | suggest fracture, but if mechanism injury or clinical signs suggest | | | fracture, further evaluation with advanced imaging could be performed | | | to assess for radiographically occult fracture. Dictated and | | | Signed by: Edi Cotto MD Electronically signed: 06/04/2017 2:10 | | | PM | | + + + + + | Procedure Note | + + | Tomer, Rad Results In - 06/04/2017 2:13 PM PDT RIGHT HIP AND PELVIS: 06/04/2017 1:16 PM | | | | CLINICAL HISTORY: Right hip/groin pain | | | | COMPARISON: None | | | | FINDINGS: AP view the pelvis and frog leg view of the right hip. | | | | No fracture or focal bony destructive change. Femoral acetabular relationships | | are within normal limits. Mild joint space narrowing, similar to the left. Mild | | sclerosis of the subchondral bone of the acetabulum. Small joint marginal | | osteophytes on the humeral head. | | | | Mild narrowing and sclerosis of the sacroiliac joints bilaterally. Symphysis | | pubis is unremarkable. Lower lumbar fusion changes are present. | | | | Iliac and femoral artery vascular calcifications. No other soft tissue | | abnormalities. | | | | IMPRESSION - | | 1. Mild to moderate osteoarthrosis of the right femoral acetabular joint. No | | radiographic changes to suggest fracture, but if mechanism injury or clinical | | signs suggest fracture, further evaluation with advanced imaging could be | | performed to assess for radiographically occult fracture. | | | | Dictated and Signed by: Edi Cotto MD | | Electronically signed: 06/04/2017 2:10 PM | + + Extra Lavender Top Tube (06/04/2017 6:51 AM PDT) + +-------+ + + + | Component | Value | Ref Range | Performed | Pathologist | | | | | At | Signature | + +-------+ + + + | Extra | Done | | [facility] | | | Lavender | | | [facility] | | | Top Tube | | | MEDICAL | | | | | | CENTER - | | | | | | LABORATORY | | + +-------+ + + + + + | Specimen | + + | Blood | + + + + + + + | Performing | Address | City/State/Zipcode | Phone Number | | Organization | | | | + + + + + | [facility] | [address] | [place] | [phone] | | [facility] | | [address] | | | - LABORATORY | | | | + + + + + Basic Metabolic Panel (06/04/2017 6:04 AM PDT) + + + + + + | Component | Value | Ref Range | Performed | Pathologist | | | | | At | Signature | + + + + + + | Na | 136 | 136 - 149 | [facility] | | | | | mmol/L | [facility] | | | | | | MEDICAL | | | | | | CENTER - | | | | | | LABORATORY | | + + + + + + | K | 3.3 (L) | 3.5 - 5.1 | [facility] | | | | | mmol/L | [facility] | | | | | | MEDICAL | | | | | | CENTER - | | | | | | LABORATORY | | + + + + + + | Cl | 100 | 98 - 109 mmol/L | [facility] | | | | | | [facility] | | | | | | MEDICAL | | | | | | CENTER - | | | | | | LABORATORY | | + + + + + + | CO2 | 28 | 24 - 31 mmol/L | [facility] | | | | | | [facility] | | | | | | [facility]ICAL | | | | | | CENTER - | | | | | | LABORATORY | | + + + + + + | Anion Gap | 8 | 3 - 16 mmol/L | [facility] | | | | | | [facility] | | | | | | [facility]ICAL | | | | | | CENTER - | | | | | | LABORATORY | | + + + + + + | Glucose | 110 (H) | 70 - 109 mg/dL | [facility] | | | | | | [facility] | | | | | | MED[facility] | | | | | | CENTER - | | | | | | LABORATORY | | + + + + + + | BUN | 4 (L) | 7 - 18 mg/dL | [facility] | | | | | | [facility] | | | | | | MEDICAL | | | | | | CENTER - | | | | | | LABORATORY | | + + + + + + | Creatinine | 0.52 (L) | 0.60 - 1.30 | [facility] | | | | | mg/dL | [facility] | | | | | | MEDICAL | | | | | | CENTER - | | | | | | LABORATORY | | + + + + + + | eGFR if not | >60Comment: GLOMERULAR | >=60 | [facility] | | | | FILTRATION | mL/min/1.73m2 | [facility] | | | CYPRIOT | RATE,ESTIMATED | | MEDICAL | | | | mL/min/1.45j9Lojh than | | CENTER - | | [...] + + + + | Calcium | 8.0 (L) | 8.3 - 10.5 | [facility] | | | | | mg/dL | [facility] | | | | | | MEDICAL | | | | | | CENTER - | | | | | | LABORATORY | | + + + + + + | BUN/Creatin | 7.7 | | [facility] | | | ine [...] + + | [facility] | [address] | [place] | [phone] | | [facility] | | [address] | | | - LABORATORY | | | | + + + + + Basic Metabolic Panel (06/03/2017 5:26 AM PDT) + + + + + [...] + + + + | K | 3.7 | 3.5 - 5.1 | [facility] | | | | | mmol/L | [facility] | | | | | | MEDICAL | | | | | | CENTER - | | | | | | LABORATORY | | + + + + + + | Cl | 101 | 98 - 109 mmol/L | [facility] | | | | | | [facility] | | | | | | MEDICAL | | | | | | CENTER - | | | | | | LABORATORY | | + + + + + + | CO2 | 29 | 24 - 31 mmol/L | [facility] | | | | | | [facility] | | | | | | MEDICAL | | | | | | CENTER - | | | | | | LABORATORY | | + + + + + + | Anion Gap | 8 | 3 - 16 mmol/L | [facility] | | | | | | [facility] | | | | | | MEDICAL | | | | | | CENTER - | | | | | | LABORATORY | | + + + + + + | Glucose | 106 | 70 - 109 mg/dL | [facility] | | | | | | [facility] | | | | | | MEDICAL | | | | | | CENTER - | | | | | | LABORATORY | | + + + + + + | BUN | 8 | 7 - 18 mg/dL | [facility] | | | | | | [facility] | | | | | | MEDICAL | | | | | | CENTER - | | | | | | LABORATORY | | + + + + + + | Creatinine | 0.54 (L) | 0.60 - 1.30 | [facility] | | | | | mg/dL | [facility] | | | [facility] | | [facility] | | | | | | CENTER - | | | | | | LABORATORY | | + + + + + + | eGFR if not | >60Comment: GLOMERULAR | >=60 | [facility] | | | | FILTRATION | mL/min/1.73m2 | [facility] | | | CYPRIOT | RATE,ESTIMATED | | MEDICAL | | | | mL/min/1.72u1Gfou than | | CENTER - | | [...] + + + + | Calcium | 8.2 (L) | 8.3 - 10.5 | [facility] | | | | | mg/dL | [facility] | | | | | | MEDICAL | | | | | | CENTER - | | | | | | LABORATORY | | + + + + + + | BUN/Creatin | 14.8 | | [facility] | | | ine Ratio | | | [facility] | | [...] + | [facility] | [address] | [place], [place] | [phone] | | [facility] | | [address] | | | - LABORATORY | | | | + + + + + Extra Lavender Top Tube (06/02/2017 3:41 AM PDT) + +-------+ + + + | Component | Value | Ref Range | Performed | Pathologist | | | | | At | Signature | + +-------+ + + + | Extra | Done | | [facility] | | | Lavender | | | [facility] | | | Top Tube | | | MEDICAL | | | | | | CENTER - | | | | | | LABORATORY | | + +-------+ + + + + + | Specimen | + + | Blood | + + + + + + + | Performing | Address | City/State/Zipcode | Phone Number | | Organization | | | | + + + + + | [facility] | [address] | [place] | [phone] | | [facility] | | [address] | | | - LABORATORY | | | | + + + + + Basic Metabolic Panel (06/02/2017 3:41 AM PDT) + + + + + + | Component | Value | Ref Range | Performed | Pathologist | | | | | At | Signature | + + + + + + | Na | 136 | 136 - 149 | [facility] | | | | | mmol/L | [facility] | | | | | | MEDICAL | | | | | | CENTER - | | | | | | LABORATORY | | + + + + + + | K | 3.6 | 3.5 - 5.1 | [facility] | | | | | mmol/L | [facility] | | | | | | MEDICAL | | | | | | CENTER - | | | | | | LABORATORY | | + + + + + + | Cl | 96 (L) | 98 - 109 mmol/L | [facility] | | | | | | [facility] | | | | | | MEDICAL | | | | | | CENTER - | | | | | | LABORATORY | | + + + + + + | CO2 | 31 | 24 - 31 mmol/L | [facility] [...] + + + + | Glucose | 110 (H)Comment: This is | 70 - 109 mg/dL | [facility] | | | | an appended report. | | [facility] | | | | These results have been | | MEDICAL | | | | appended to a previously | | CENTER - | | | | preliminary verified | | LABORATORY | | | | report. | | | | + + + + + + | BUN | 14 | 7 - 18 mg/dL | [facility] | | | | | | [facility] | | | | | | MEDICAL | | | | | | CENTER - | | | | | | LABORATORY | | + + + + + + | Creatinine | 0.56 (L)Comment: This is | 0.60 - 1.30 | [facility] | | | | an appended report. | mg/dL | [facility] | | | | These results have been | | MEDICAL | | | | appended to a previously | | CENTER - | | | | preliminary verified | | LABORATORY | | | | report. | | | | + + + + + + | eGFR if not | >60Comment: GLOMERULAR | >=60 | [facility] | | | | FILTRATION | mL/min/1.73m2 | [facility] | | | CYPRIOT | RATE,ESTIMATED | | MEDICAL | | | | mL/min/1.45z0Swth than | | CENTER - | | [...] 1.21. | | | | | | This is an appended | | | | | | report. These results | | | | | | have been appended to a | | | | | | previously preliminary | | | | | | verified report. | | | | + + + + + + | Calcium | 8.1 (L) | 8.3 - 10.5 | [facility] | | | | | mg/dL | [facility] | | | | | | MEDICAL | | | | | | CENTER - | | | | | | LABORATORY | | + + + + + + | BUN/Creatin | 25.0Comment: This is an | | [facility] | | | ine Ratio | appended report. These | | [facility] | | | | results have been | | MEDICAL | | | | appended to a previously | | CENTER - | | | | preliminary verified | | LABORATORY | | | | report. | | | | + + + + + + + + | Specimen | + + | Blood | + + + + + + + | Performing | Address | City/State/Zipcode | Phone Number | | Organization | | | | + + + + + | [facility] | [address] | [place] | [phone] | | [facility] | | [address] | | | - LABORATORY | | | | + + + + + B Type Natriuretic Peptide (06/02/2017 3:41 AM PDT) + +---------+ + + + | Component | Value | Ref Range | Performed | Pathologist | | | | | At | Signature | + +---------+ + + + | BNP | 162 (H) | <100 pg/mL | [facility] | [facility] | | | [facility] | | | | | | MEDICAL | | | | | | CENTER - | | | | | | LABORATORY | | + +---------+ + + + + + | Specimen | + + | Blood | + + + + + + + | Performing | Address | City/State/Zipcode | Phone Number | | Organization | | | | + + + + + | [facility] | [address] | [place] | [phone] | | [facility] | | [address] | | | - LABORATORY | | | | + + + + + Culture, Wound, Smear (06/01/2017 5:31 PM PDT) + + + + + + | Component | Value | Ref Range | Performed | Pathologist | | | | | At | Signature | + + + + + + | Culture | No Growth | | [facility] | | | | | | [facility] | | | | | | MEDICAL | | | | | | CENTER - | | | | | | LABORATORY | | + + + + + + | Gram Stain | 3+ White Blood Cells | | [facility] | | | Result | | | [facility] | | | | | | MEDICAL | | | | | | CENTER - | | | | | | LABORATORY | | + + + + + + | Gram Stain | 1+ Epithelial cells | | [facility] | | | Result | | | [facility] | | | | | | MEDICAL | | | | | | CENTER - | | | | | | LABORATORY | | + + + + + + | Gram Stain | No organisms seen | | [facility] | | | Result | | | [facility] | | | | | | MEDICAL | | | | | | CENTER - | | | | | | LABORATORY | | + + + + + + + + | Specimen | + + | Wound - Entire upper | | arm (body | | structure) | + + + + + + + | Performing | Address | City/State/Zipcode | Phone Number | | Organization | | | | + + + + + | [facility] | [address] | [place] | [phone] | | [facility] | | [address] | | | - LABORATORY | | | | + + + + + ECHO Complete (06/01/2017 11:36 AM PDT) + +-------+ + + + | Component | Value | Ref Range | Performed | Pathologist | | | | | At | Signature | + +-------+ + + + | LVEF-TTE | 70 | | | | | TRANSTHORAC | | | | | | IC ECHO | | | | | + +-------+ + + + + + | Specimen | + + | | + + + +-- + | Narrative | P erformed At | + +-- + | Transthoracic | | | Echocardiography Report (TTE) Demographics Patient Name UMESH | | | DOROTHEA Room Number 455 DEBRA | | | Patient Number [id number] Date of Study | | | 06/01/2017 Visit Number [id number] | | | Referring Physician MARCO Means Number 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 Procedure | | | dateDate: 06/01/2017Start: 11:02 AM Technical Quality: Limited | | | visualizationStudy Location: ICUIndications: Atrial Fibrillation | | | 427.31/I48.91.Patient Status: RoutineHeight: 67 inchesWeight: 155 | | | poundsBSA: 1.81 m^2BMI: 24.28 kg/m^2Rhythm: Atrial fibrillation | | | ConclusionsSummary1. Mild left atrial dilatation.2. Normal left | | | ventricular size, wall thickness and motion. Preserved leftventricular | | | systolic function. LVEF is 70%.3. Mild aortic valve insufficiency.4. | | | Mild mitral valve regurgitation.5. Mild mitral annular | | | calcification.6. Normal right-sided pressure.7. Normal IVC with normal | | | respiratory collapse. | | | Signature | | | | | | PM | | | -------- FindingsMitral ValveMitral valve appears structurally and | | | functionally normal.Mild mitral regurgitation.Mild mitral annular | | | calcification is present.Aortic ValveAortic valve appears | | | trileaflet.Mild aortic regurgitation is noted.Tricuspid | | | ValveStructurally normal tricuspid valve without significant stenosis | | | orregurgitation. Left AtriumThe left atrium is mildly dilated.Left | | | VentricleLeft ventricle is normal in size and function. Ejection | | | fraction isestimated at 70 %.Right AtriumNormal right atrium.Right | | | VentricleNormal right ventricular size.Right ventricle global systolic | | | function is normal.TAPSE = 1.6 cm.Pericardial EffusionNo evidence of | | | pericardial effusion. MiscellaneousNormal aortic root.The IVC appears | | | normal.IVC respiratory change in dimension > 50%. Valves Aortic Valve | | | Structures Left Atrium LA A/P Dimension: 3.77 cm | | | LA Area: 19.63 cm^2 LA Vol/BSA Index: 27 mL/m^2 | | | LA Volume: 48.46 ml | | | EF Eydaienat77% Left | | | Ventricle Diastolic Dimension: 4.83 cm Systolic | | | Dimension: 3.43 cm Septum Diastolic: 0.8 cm PW Diastolic: 0.9 cm EF | | | Calculated: 71% Miscellaneous Aorta Aortic Root: 2.96 cm Ascending | | | Aorta: 3.15 cm | | |7. Normal IVC with normal respiratory collapse. | | | | | |Signature | | | | | | Electronically signed by ISACC SEARS MD(Interpreting physician) on | | | 06/01/2017 01:04 PM | | | | | | | | |Findings | | |Mitral Valve | | |Mitral valve appears structurally and functionally normal. | | |Mild mitral regurgitation. | | |Mild mitral annular calcification is present. | | |Aortic Valve | | |Aortic valve appears trileaflet. | | |Mild aortic regurgitation is noted. | | |Tricuspid Valve | | |Structurally normal tricuspid valve without significant stenosis or | | |regurgitation. | | | | | |Left Atrium | | |The left atrium is mildly dilated. | | |Left Ventricle | | |Left ventricle is normal in size and function. Ejection fraction is | | |estimated at 70 %. | | |Right Atrium | | |Normal right atrium. | | |Right Ventricle | | |Normal right ventricular size. | | |Right ventricle global systolic function is normal. | | |TAPSE = 1.6 cm. | | |Pericardial Effusion | | |No evidence of pericardial effusion. | | | | | |Miscellaneous | | |Normal aortic root. | | |The IVC appears normal. | | |IVC respiratory change in dimension > 50%. | | | | | |Valves | | | | | | Aortic Valve | | | | | |Structures | | | | | | Left Atrium | | | | | | LA A/P Dimension: 3.77 cm LA Area: 19.63 cm^2 | | | LA Vol/BSA Index: 27 mL/m^2 LA Volume: 48.46 ml | | | EF Movivrdqq49% | | | | | | Left Ventricle | | | | | | Diastolic Dimension: 4.83 cm Systolic Dimension: 3.43 cm | | | Septum Diastolic: 0.8 cm | | | PW Diastolic: 0.9 cm | | | EF Calculated: 71% | | | | | | Miscellaneous | | | | | | Aorta | | | | | | Aortic Root: 2.96 cm | | | Ascending Aorta: 3.15 cm | | | | | + +-- + + + | Procedure Note | + + | Tomer, Rad Results In - 06/01/2017 1:04 PM PDT Transthoracic Echocardiography Report | | (TTE) Demographics Patient Name UMESH ALANIZ Room Number 455 | | DEBRA Patient Number [id number] Date of Study 06/01/2017 Visit Number | | [id number] Referring Physician MARCO Means | | Number 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 Mild left atrial dilatation.2. Normal left ventricular | | size, wall thickness and motion. Preserved leftventricular systolic function. LVEF is | | 70%.3. Mild aortic valve insufficiency.4. Mild mitral valve regurgitation.5. Mild mitral | | annular calcification.6. Normal right-sided pressure.7. Normal IVC with normal | | respiratory | | collapse.Signature | | ------ Electronically signed by ISACC SEARS MD(Interpreting physician) on | | 06/01/2017 01:04 | | PM FindingsMi | | tral ValveMitral valve appears structurally and functionally normal.Mild mitral | | regurgitation.Mild mitral annular calcification is present.Aortic ValveAortic valve | | appears trileaflet.Mild aortic regurgitation is noted.Tricuspid ValveStructurally normal | | tricuspid valve without significant stenosis orregurgitation.Left AtriumThe left atrium | | is mildly dilated.Left VentricleLeft ventricle is normal in size and function. Ejection | | fraction isestimated at 70 %.Right AtriumNormal right atrium.Right VentricleNormal | | right ventricular size.Right ventricle global systolic function is normal.TAPSE = 1.6 | | cm.Pericardial EffusionNo evidence of pericardial effusion.MiscellaneousNormal aortic | | root.The IVC appears normal.IVC respiratory change in dimension > 50%.Valves Aortic | | ValveStructures Left Atrium LA A/P Dimension: 3.77 cm LA Area: | | 19.63 cm^2 LA Vol/BSA Index: 27 mL/m^2 LA Volume: 48.46 ml | | EF Ahqtbgcfl59% Left Ventricle Diastolic Dimension: | | 4.83 cm Systolic Dimension: 3.43 cm Septum Diastolic: 0.8 cm PW Diastolic: 0.9 | | cm EF Calculated: 71% Miscellaneous Aorta Aortic Root: 2.96 cm Ascending Aorta: 3.15 cm | |Patient Status: Routine | |Height: 67 inchesWeight: 155 poundsBSA: 1.81 m^2BMI: 24.28 kg/m^2 | |Rhythm: Atrial fibrillation | | | |Conclusions | |Summary | |1. Mild left atrial dilatation. | |2. Normal left ventricular size, wall thickness and motion. Preserved left | |ventricular systolic function. LVEF is 70%. | |3. Mild aortic valve insufficiency. | |4. Mild mitral valve regurgitation. | |5. Mild mitral annular calcification. | |6. Normal right-sided pressure. | |7. Normal IVC with normal respiratory collapse. | | | |Signature | | | | Electronically signed by ISACC SEARS MD(Interpreting physician) on | | 06/01/2017 01:04 PM | | | | | |Findings | |Mitral Valve | |Mitral valve appears structurally and functionally normal. | |Mild mitral regurgitation. | |Mild mitral annular calcification is present. | |Aortic Valve | |Aortic valve appears trileaflet. | |Mild aortic regurgitation is noted. | |Tricuspid Valve | |Structurally normal tricuspid valve without significant stenosis or | |regurgitation. | | | |Left Atrium | |The left atrium is mildly dilated. | |Left Ventricle | |Left ventricle is normal in size and function. Ejection fraction is | |estimated at 70 %. | |Right Atrium | |Normal right atrium. | |Right Ventricle | |Normal right ventricular size. | |Right ventricle global systolic function is normal. | |TAPSE = 1.6 cm. | |Pericardial Effusion | |No evidence of pericardial effusion. | | | |Miscellaneous | |Normal aortic root. | |The IVC appears normal. | |IVC respiratory change in dimension > 50%. | | | |Valves | | | | Aortic Valve | | | |Structures | | | | Left Atrium | | | | LA A/P Dimension: 3.77 cm LA Area: 19.63 cm^2 | | LA Vol/BSA Index: 27 mL/m^2 LA Volume: 48.46 ml | | EF Uofyrnmnf18% | | | | Left Ventricle | | | | Diastolic Dimension: 4.83 cm Systolic Dimension: 3.43 cm | | Septum Diastolic: 0.8 cm | | PW Diastolic: 0.9 cm | | EF Calculated: 71% | | | | Miscellaneous | | | | Aorta | | | | Aortic Root: 2.96 cm | | Ascending Aorta: 3.15 cm | + + XR Chest AP Portable (06/01/2017 5:17 AM PDT) + + | Specimen | + + | | + + + + + | Narrative | Performed At | + + + | PORTABLE CHEST X-RAY: 06/01/2017 5:08 AM CLINICAL HISTORY:PAF | [facility] | | COMPARISON: 05/27/2017 at 1612 hours FINDINGS:Low volume | | | inspiration exam. Heart size is normal. Chronic aortic arch | | | calcification. No mediastinal widening. Pulmonary vasculature is | | | within normal limits. Small amount of patchy airspace density in | | | both lung bases, consistent with low volume and possible atelectasis. | | | No other areas of abnormal lung density. No effusion or | | | pneumothorax. No acute bony abnormality. IMPRESSION -Low | | | volume inspiration exam with small amount of patchy bilateral basilar | | | airspace density, consistent with atelectasis. Dictated and | | | Signed by: Edi Cotto MD Electronically signed: 06/01/2017 7:27 | | | AM | | + + + + + | Procedure Note | + + | Tomer, Rad Results In - 06/01/2017 7:30 AM PDT PORTABLE CHEST X-RAY: 06/01/2017 5:08 AM | | | | CLINICAL HISTORY:PAF | | | | COMPARISON: 05/27/2017 at 1612 hours | | | | FINDINGS:Low volume inspiration exam. | | | | Heart size is normal. Chronic aortic arch calcification. No mediastinal | | widening. Pulmonary vasculature is within normal limits. | | | | Small amount of patchy airspace density in both lung bases, consistent with low | | volume and possible atelectasis. No other areas of abnormal lung density. No | | effusion or pneumothorax. | | | | No acute bony abnormality. | | | | IMPRESSION -Low volume inspiration exam with small amount of patchy bilateral | | basilar airspace density, consistent with atelectasis. | | | | Dictated and Signed by: Edi Cotto MD | | Electronically signed: 06/01/2017 7:27 AM | + + + +---------+ + + | Performing | Address | City/State/Zipcode | Phone Number | | Organization | | | | + +---------+ + + | [facility] | | | | + +---------+ + + Extra Lavender Top Tube (06/01/2017 3:46 AM PDT) + +-------+ + + + | Component | Value | Ref Range | Performed | Pathologist | | | | | At | Signature | + +-------+ + + + | Extra | Done | | [facility] | | | Lavender | | | [facility] | | | Top Tube | | | MEDICAL | | | | | | CENTER - | | | | | | LABORATORY | | + +-------+ + + + + + | Specimen | + + | Blood | + + + + + + + | Performing | Address | City/State/Zipcode | Phone Number | | Organization | | | | + + + + + | [facility] | [address] | [place] | [phone] | | [facility] | | [address] | | | - LABORATORY | | | | + + + + + Basic Metabolic Panel (06/01/2017 3:46 AM PDT) + + + + + + | Component | Value | Ref Range | Performed | Pathologist | | | | | At | Signature | + + + + + + | Na | 134 (L) | 136 - 149 | [facility] | | | | | mmol/L | [facility] | | | | | | MEDICAL | | | | | | CENTER - | | | | | | LABORATORY | | + + + + + + | K | 4.1 | 3.5 - 5.1 | [facility] | | | | | mmol/L | [facility] | | | | | | MEDICAL | | | | | | CENTER - | | | | | | LABORATORY | | + + + + + + | Cl | 97 (L) | 98 - 109 mmol/L | [facility] | | | | | | [facility] | | | | | | MEDICAL | | | | | | CENTER - | | | | | | LABORATORY | | + + + + + + | CO2 | 30 | 24 - 31 mmol/L | [facility] | | | | | | [facility] | | | | | | MEDICAL | | | | | | CENTER - | | | | | | LABORATORY | | + + + + + + | Anion Gap | 7 | 3 - 16 mmol/L | [facility] | | | | | | [facility] | | | | | | MEDICAL | | | | | | CENTER - | | | | | | LABORATORY | | + + + + + + | Glucose | 122 (H) | 70 - 109 mg/dL | [facility] | | | | | | [facility] | | | | | | MEDICAL | | | | | | CENTER - | | | | | | LABORATORY | | + + + + + + | BUN | 12 | 7 - 18 mg/dL | [facility] | | | | | | [facility] | | | | | | MEDICAL | | | | | | CENTER - | | | | | | LABORATORY | | + + + + + + | Creatinine | 0.56 (L) | 0.60 - 1.30 | [facility] | | | | | mg/dL | [facility] | | | | | | MEDICAL | | | | | | CENTER - | | | | | | LABORATORY | | + + + + + + | eGFR if not | >60Comment: GLOMERULAR | >=60 | [facility] | | | | FILTRATION | mL/min/1.73m2 | [facility] | | | CYPRIOT | RATE,ESTIMATED | | MEDICAL | | | | mL/min/1.04g9Zkor than | | CENTER - | | [...] + + + + | Calcium | 8.2 (L) | 8.3 - 10.5 | [facility] | | | | | mg/dL | [facility] | | | | | | MEDICAL | | | | | | CENTER - | | | | | | LABORATORY | | + + + + + + | BUN/Creatin | 21.4 | | [facility] | | | ine Ratio | | | [facility] | | [...] + | [facility] | [address] | [place] | [phone] | | [facility] | | [address] | | | - LABORATORY | | | | + + + + + B Type Natriuretic Peptide (06/01/2017 3:46 AM PDT) + +---------+ + + + | Component | Value | Ref Range | Performed | Pathologist | | | | | At | Signature | + +---------+ + + + | BNP | 423 (H) | <100 pg/mL | [facility] | | | | | | [facility] | | | | | | MEDICAL | | | | | | CENTER - | | | | | | LABORATORY | | + +---------+ + + + + + | Specimen | + + | Blood | + + + + + + + | Performing | Address | City/State/Zipcode | Phone Number | | Organization | | | | + + + + + | [facility] | [address] | [place] | [phone] | | [facility] | | [address] | | | - LABORATORY | | | | + + + + + Magnesium (05/31/2017 11:03 PM PDT) + +-------+ + + + | Component | Value | Ref Range | Performed | Pathologist | | | | | At | Signature | + +-------+ + + + | Magnesium | 1.8 | 1.8 - 2.5 mg/dL | [facility] | | | | | | [facility] | | | | | | [facility]ICAL | | | | | | CENTER - | | | | | | LABORATORY | | + +-------+ + + + + + | Specimen | + + | Blood | + + + + + + + | Performing | Address | City/State/Zipcode | Phone Number | | Organization | | | | + + + + + | [facility] | [address] | [place] | [phone] | | [facility] | | [address] | | | - LABORATORY | | | | + + + + + Potassium (05/31/2017 11:03 PM PDT) + +-------+ + + + | Component | Value | Ref Range | Performed | Pathologist | | | | | At | Signature | + +-------+ + + + | K | 3.8 | 3.5 - 5.1 | [facility] | | | | | mmol/L | [facility] | | | | | | MEDICAL | | | | | | CENTER - | | | | | | LABORATORY | | + +-------+ + + + + + | Specimen | + + | Blood | + + + + + + + | Performing | Address | City/State/Zipcode | Phone Number | | Organization | | | | + + + + + | [facility] | [address] | [place] | [phone] | | [facility] | | [address] | | | - LABORATORY | | | | + + + + + ECG 12 lead (05/31/2017 2:13 PM PDT) + + + + + + | Component | Value | Ref Range | Performed | Pathologist | | | | | At | Signature | + + + + + + | VENTRICULAR | 72 | BPM | [facility] | | | RATE EKG | | | | | + + + + + + | ATRIAL RATE | 72 | BPM | [facility] | | + + + + + + | P-R | 124 | ms | [facility] | | | INTERVAL | | | | | + + + + + + | QRS | 80 | ms | [facility] | | | DURATION | | | | | + + + + + + | Q-T | 388 | ms | [facility] | | | INTERVAL | | | | | + + + + + + | Q-T | 424 | ms | [facility] | | | INTERVAL | | | | | | (CORRECTED) | | | | | + + + + + + | P WAVE AXIS | 59 | degrees | [facility] | | + + + + + + | QRS AXIS | 29 | degrees | [facility] | | + + + + + + | T AXIS | 57 | degrees | [facility] | | + + + + + + | INTERPRETAT | Normal sinus | | [facility] | | | ION TEXT | rhythmNormal ECGWhen | | | | | | compared with ECG of | | | | | | 31-MAY-2017 12:04, | | | | | | (Unconfirmed)Sinus | | | | | | rhythm has replaced | | | | | | Atrial fibrillationVent. | | | | | | rate has decreased BY | | | | | | 68 BPMST segments have | | | | | | normalized Confirmed by | | | | | | TRACIE RAMOS MD ([id number]) | | | | | | on 06/01/2017 6:22:31 AM | | | | | | | [...] | | | + +---------+ + + ECG 12 lead (05/31/2017 12:04 PM PDT) + + + + + + | Component | Value | Ref Range | Performed | Pathologist | | | | | At | Signature | + + + + + + | VENTRICULAR | 140 | BPM | [facility] | | | RATE EKG | | | | | + + + + + + | QRS | 82 | ms | [facility] | | | DURATION | | | | | + + + + + + | Q-T | 262 | ms | [facility] | | | INTERVAL | | | | | + + + + + + | Q-T | 399 | ms | [facility] | | | INTERVAL | | | | | | (CORRECTED) | | | | | + + + + + + | QRS AXIS | 40 | degrees | [facility] | | + + + + + + | T AXIS | -150 | degrees | [facility] | | + + + + + + | INTERPRETAT | Atrial fibrillation with | | [facility] | | | ION TEXT | rapid ventricular | | | | | | response with premature | | | | | | ventricular or | | | | | | aberrantly conducted | | | | | | complexes . 4 | | | | | | consecutive | | | | | | ventricular | | | | | | versussupraventricular | | | | | | with abberant | | | | | | cconduction complexesST | | | | | | depression, consider | | | | | | subendocardial | | | | | | injuryNonspecific T wave | | | | | | abnormalityAbnormal | | | | | | ECGWhen compared with | | | | | | ECG of 05/30/17 at | | | | | | 15:50atrial fibrillation | | | | | | has replaced sinus | | | | | | rhythmPVCs versus | | | | | | aberrantly conducted | | | | | | supraventricular | | | | | | complexes are now | | | | | | presentST depression is | | | | | | now presentConfirmed by | | | | | | TRACIE RAMOS MD ([id number]) | | | | | | on 06/01/2017 6:21:43 AM | | | | + + [...] | | | + +---------+ + + ECG 12 lead (05/30/2017 3:50 PM PDT) + + + + + + | Component | Value | Ref Range | Performed | Pathologist | | | | | At | Signature | + + + + + + | VENTRICULAR | 70 | BPM | [facility] | | | RATE EKG | | | | | + + + + + + | ATRIAL RATE | 70 | BPM | [facility] | | + + + + + + | P-R | 118 | ms | [facility] | | | INTERVAL | | | | | + + + + + + | QRS | 76 | ms | [facility] | | | DURATION | | | | | + + + + + + | Q-T | 402 | ms | [facility] | | | INTERVAL | | | | | + + + + + + | Q-T | 434 | ms | [facility] | | | INTERVAL | | | | | | (CORRECTED) | | | | | + + + + + + | P WAVE AXIS | 57 | degrees | [facility] | | + + + + + + | QRS AXIS | 49 | degrees | [facility] | | + + + + + + | T AXIS | 55 | degrees | [facility] | | + + + + + + | INTERPRETAT | Normal sinus rhythm with | | [facility] | | | ION TEXT | sinus arrhythmiaShort | | | | | | [place] intervalNonspecific | | | | | | ST abnormalityAbnormal | | | | | | ECGWhen compared with | | | | | | ECG of 30-MAY-2017 | | | | | | 05:56,Sinus rhythm has | | | | | | replaced Atrial | | | | | | fibrillationVent. rate | | | | | | has decreased BY 60 | | | | | | BPMNonspecific ST | | | | | | abnormality in lateral | | | | | | leads has shown a trend | | | | | | toward | | | | | | normalizationConfirmed | | | | | | by TRACIE RAMOS MD | | | | | | ([id number]) on 05/31/2017 | | | | | | 7:37:50 AM | | | | + + [...] | | | + +---------+ + + ECG 12 lead (05/30/2017 5:56 AM PDT) + + + + + + | Component | Value | Ref Range | Performed | Pathologist | | | | | At | Signature | + + + + + + | VENTRICULAR | 130 | BPM | [facility] | | | RATE EKG | | | | | + + + + + + | QRS | 82 | ms | [facility] | | | DURATION | | | | | + + + + + + | Q-T | 274 | ms | [facility] | | | INTERVAL | | | | | + + + + + + | Q-T | 403 | ms | [facility] | | | INTERVAL | | | | | | (CORRECTED) | | | | | + + + + + + | QRS AXIS | 69 | degrees | [facility] | | + + + + + + | T AXIS | 48 | degrees | [facility] | | + + + + + + | INTERPRETAT | Atrial fibrillation with | | [facility] | | | ION TEXT | rapid ventricular | | | | | | responseNonspecific ST | | | | | | and T wave abnormality | | | | | | :cannot exclude | | | | | | ischemiaAbnormal ECGWhen | | | | | | compared with ECG of | | | | | | 29-MAY-2017 18:46, | | | | | | (Unconfirmed)No | | | | | | significant change was | | | | | | foundConfirmed by | | | | | | TRACIE RAMOS MD ([id number]) | | | | | | on 05/30/2017 7:31:29 AM | | | | + + [...] | | | + +---------+ + + TSH (05/30/2017 3:37 AM PDT) + + + + + + | Component | Value | Ref Range | Performed | Pathologist | | | | | At | Signature | + + + + + + | TSH | 2.37Comment: All TSH | 0.34 - 5.60 | [facility] | | | | samples are screened | uIU/mL | [facility] | | | | using a 2nd Generation | | MEDICAL | | | | test, and are reflexed | | CENTER - | | | | to a 3rd Generation test | | LABORATORY | | | | if indicated. | | | | + + + + + + + + | Specimen | + + | Blood | + + + + + + + | Performing | Address | City/State/Zipcode | Phone Number | | Organization | | | | + + + + + | [facility] | [address] | [place] | [phone] | | [facility] | | [address] | | | - LABORATORY | | | | + + + + + Comprehensive Metabolic Panel (05/30/2017 3:37 AM PDT) + + + + + + | Component | Value | Ref Range | Performed | Pathologist | | | | | At | Signature | + + + + + + | Na | 133 (L) | 136 - 149 | [facility] | | | | | mmol/L | [facility] | | | | | | MEDICAL | | | | | | CENTER - | | | | | | LABORATORY | | + + + + + + | K | 4.1 | 3.5 - 5.1 | [facility] | | | | | mmol/L | [facility] | | | | | | MEDICAL | | | | | | CENTER - | | | | | | LABORATORY | | + + + + + + | Cl | 102 | 98 - 109 mmol/L | [facility] | | | | | | [facility] | | | | | | MEDICAL | | | | | | CENTER - | | | | | | LABORATORY | | + + + + + + | CO2 | 26 | 24 - 31 mmol/L | [facility] | | | | | | [facility] | | | | | | MEDICAL | | | | | | CENTER - | | | | | | LABORATORY | | + + + + + + | Anion Gap | 5 | 3 - 16 mmol/L | [facility] | | | | | | [facility] | | | | | | MEDICAL | | | | | | CENTER - | | | | | | LABORATORY | | + + + + + + | Glucose | 126 (H) | 70 - 109 mg/dL | [facility] | | | | | | [facility] | | | | | | MEDICAL | | | | | | CENTER - | | | | | | LABORATORY | | + + + + + + | BUN | 12 | 7 - 18 mg/dL | [facility] | | | | | | [facility] | | | | | | MEDICAL | | | | | | CENTER - | | | | | | LABORATORY | | + + + + + + | Creatinine | 0.46 (L) | 0.60 - 1.30 | [facility] | | | | | mg/dL | [facility] | | | | | | [facility] | | | | | | CENTER - | | | | | | LABORATORY | | + + + + + + | eGFR if not | >60Comment: GLOMERULAR | >=60 | [facility] | | | | FILTRATION | mL/min/1.73m2 | [facility] | | | CYPRIOT | RATE,ESTIMATED | | MEDICAL | | | | mL/min/1.67r7Rezw than | | CENTER - | | [...] + + + + | Calcium | 8.1 (L) | 8.3 - 10.5 | [facility] | | | | | mg/dL | [facility] | | | | | | MEDICAL | | | | | | CENTER - | | | | | | LABORATORY | | + + + + + + | Albumin | 2.5 (L) | 3.2 - 5.0 g/dL | [facility] | | | | | | [facility] | | | | | | MEDICAL | | | | | | CENTER - | | | | | | LABORATORY | | + + + + + + | Bilirubin | 0.8 | 0.1 - 1.5 mg/dL | [facility] | | | Total | | | [facility] | | | | | | MEDICAL | | | | | | CENTER - | | | | | | LABORATORY | | + + + + + + | Total | 6.0 | 6.0 - 7.8 g/dL | [facility] | | | Protein | | | [facility] | | | | | | MEDICAL | | | | | | CENTER - | | | | | | LABORATORY | | + + + + + + | AST | 66 (H) | 10 - 42 U/L | [facility] | | | | | | [facility] | | | | | | MEDICAL | | | | | | CENTER - | | | | | | LABORATORY | | + + + + + + | ALT | 52 (H) | 6 - 45 U/L | [facility] | | | | | | [facility] | | | | | | MEDICAL | | | | | | CENTER - | | | | | | LABORATORY | | + + + + + + | Alkaline | 100 | 40 - 110 U/L | [facility] | | | Phosphatase | | | [facility] | | | | | | MEDICAL | | | | | | CENTER - | | | | | | LABORATORY | | + + + + + + | Globulin | 3.5 | 2.1 - 3.8 g/dL | [facility] | | | | | | [facility] | | | | | | MEDICAL | | | | | | CENTER - | | | | | | LABORATORY | | + + + + + + | Albumin/Elvira | 0.7 (L) | 0.8 - 2.0 | [facility] | | | bulin Ratio | | | [facility] | | | | | | MEDICAL | | | | | | CENTER - | | | | | | LABORATORY | | + + + + + + | BUN/Creatin | 26.1 | | [facility] | | | ine Ratio | | | [facility] | | [...] + + | [facility] | [address] | [place] | [phone] | | [facility] | | [address] | | | - LABORATORY | | | | + + + + + CBC with Differential (05/30/2017 3:36 AM PDT) + + + + + + | Component | Value | Ref Range | Performed | Pathologist | | | | | At | Signature | + + + + + + | WBC | 10.9 | 4.0 - 11.0 K/uL | [facility] | | | | | | [facility] | | | | | | MEDICAL | | | | | | CENTER - | | | | | | LABORATORY | | + + + + + + | RBC | 3.09 (L) | 3.70 - 5.20 | [facility] | | | | | M/uL | [facility] | | | | | | MEDICAL | | | | | | CENTER - | | | | | | LABORATORY | | + + + + + + | Hemoglobin | 9.7 (L) | 11.5 - 16.0 | [facility] | | | | | g/dL | [facility] | | | | | | MEDICAL | | | | | | CENTER - | | | | | | LABORATORY | | + + + + + + | Hematocrit | 28.8 (L) | 34.0 - 47.0 % | [facility] | | | | | | [facility] | | | | | | MEDICAL | | | | | | CENTER - | | | | | | LABORATORY | | + + + + + + | MCV | 93.2 | 83.0 - 101.0 fL | [facility] | | | | | | [facility] | | | | | | MEDICAL | | | | | | CENTER - | | | | | | LABORATORY | | + + + + + + | MCH | 31.4 | 28.0 - 35.0 pg | [facility] | | | | | | [facility] | | | | | | MEDICAL | | | | | | CENTER - | | | | | | LABORATORY | | + + + + + + | MCHC | 33.7 | 32.0 - 36.0 | [facility] | | | | | g/dL | [facility] | | | | | | MEDICAL | | | | | | CENTER - | | | | | | LABORATORY | | + + + + + + | RDW-CV | 14.1 | <15.0 % | [facility] | | | | | | [facility] | | | | | | MEDICAL | | | | | | CENTER - | | | | | | LABORATORY | | + + + + + + | Platelet | 177 | 140 - 440 K/uL | [facility] | | | Count | | | [facility] | | | | | | MEDICAL | | | | | | CENTER - | | | | | | LABORATORY | | + + + + + + | MPV | 8.6 | fL | [facility] | | | | | | [facility] | | | | | | MEDICAL | | | | | | CENTER - | | | | | | LABORATORY | | + + + + + + | % | 70.7 | 45.0 - 82.0 % | [facility] | | | Neutrophils | | | [facility] | | | | | | MEDICAL | | | | | | CENTER - | | | | | | LABORATORY | | + + + + + + | % | 17.5 (L) | 20.0 - 45.0 % | [facility] | | | Lymphocytes | | | [facility] | | | | | | MEDICAL | | | | | | CENTER - | | | | | | LABORATORY | | + + + + + + | % Monocytes | 11.1 | 4.0 - 12.0 % | [facility] [...] + + + | % Basophils | 0.0 | 0.0 - 1.0 % | [facility] | | | | | | [facility] | | | | | | MEDICAL | | | | | | CENTER - | | | | | | LABORATORY | | + + + + + + | Absolute | 7.70 | 1.80 - 8.50 | [facility] | | | Neutrophils | | K/uL | [facility] | | | | | | MEDICAL | | | | | | CENTER - | | | | | | LABORATORY | | + + + + + + | Absolute | 1.90 | 0.60 - 3.20 | [facility] | | | Lymphocytes | | K/uL | [facility] | | | | | | MEDICAL | | | | | | CENTER - | | | | | | LABORATORY | | + + + + + + | Absolute | 1.20 (H) | 0.00 - 1.00 | [facility] | [...] | Basophils | | K/uL | [facility] | [...] | + + + + + | [facility] | [address] | [place] | [phone] | | [facility] | | [address] | | | - LABORATORY | | | | + + + + + ECG 12 lead (05/29/2017 6:46 PM PDT) + + + + + + | Component | Value | Ref Range | Performed | Pathologist | | | | | At | Signature | + + + + + + | VENTRICULAR | 126 | BPM | [facility] | | | RATE EKG | | | | | + + + + + + | QRS | 80 | ms | [facility] | | | DURATION | | | | | + + + + + + | Q-T | 266 | ms | [facility] | | | INTERVAL | | | | | + + + + + + | Q-T | 385 | ms | [facility] | | | INTERVAL | | | | | | (CORRECTED) | | | | | + + + + + + | QRS AXIS | 59 | degrees | [facility] | | + + + + + + | T AXIS | -18 | degrees | [facility] | | + + + + + + | INTERPRETAT | Atrial fibrillation with | | [facility] | | | ION TEXT | rapid ventricular | | | | | | response with premature | | | | | | ventricular or | | | | | | aberrantly conducted | | | | | | complexesNonspecific ST | | | | | | and T wave | | | | | | abnormalityAbnormal | | | | | | ECGWhen compared with | | | | | | ECG of 28-MAY-2017 | | | | | | 00:27,Atrial | | | | | | fibrillation has | | | | | | replaced Sinus | | | | | | rhythmVent. rate has | | | | | | increased BY 48 BPM | | | | | | Confirmed by RACHEL DAS, | | | | | | TRACIE ([id number]) on | | | | | | 05/30/2017 7:30:56 AM | | | | + + [...] | | | + +---------+ + + Extra Lavender Top Tube (05/28/2017 8:26 AM PDT) + +-------+ + + + | Component | Value | Ref Range | Performed | Pathologist | | | | | At | Signature | + +-------+ + + + | Extra | Done | | [facility] | | | Lavender | | | [facility] | | | Top Tube | | | MEDICAL | | | | | | CENTER - | | | | | | LABORATORY | | + +-------+ + + + + + | Specimen | + + | Blood | + + + + + + + | Performing | Address | City/State/Zipcode | Phone Number | | Organization | | | | + + + + + | [facility] | [address] | [place] | [phone] | | [facility] | | [address] | | | - LABORATORY | | | | + + + + + Magnesium (05/28/2017 8:26 AM PDT) + +-------+ + + + | Component | Value | Ref Range | Performed | Pathologist | | | | | At | Signature | + +-------+ + + + | Magnesium | 2.0 | 1.8 - 2.5 mg/dL | [facility] | | | | | | [facility] | | | | | | MEDICAL | | | | | | CENTER - | | | | | | LABORATORY | | + +-------+ + + + + + | Specimen | + + | Blood | + + + + + + + | Performing | Address | City/State/Zipcode | Phone Number | | Organization | | | | + + + + + | [facility] | [address] | [place] | [phone] | | [facility] | | [address] | | | - LABORATORY | | | | + + + + + Basic Metabolic Panel (05/28/2017 8:26 AM PDT) + + + + + + | Component | Value | Ref Range | Performed | Pathologist | | | | | At | Signature | + + + + + + | Na | 137 | 136 - 149 | [facility] | | | | | mmol/L | [facility] | | | | | | MEDICAL | | | | | | CENTER - | | | | | | LABORATORY | | + + + + + + | K | 3.8 | 3.5 - 5.1 | [facility] | [...] + + + + | CO2 | 26 | 24 - 31 mmol/L | [facility] | | | | | | [facility] | | | | | | MEDICAL | | | | | | CENTER - | | | | | | LABORATORY | | + + + + + + | Anion Gap | 7 | 3 - 16 mmol/L | [facility] | | | | | | [facility] | | | | | | MEDICAL | | | | | | CENTER - | | | | | | LABORATORY | | + + + + + + | Glucose | 137 (H) | 70 - 109 mg/dL | [facility] | | | | | | [facility] | | | | | | MEDICAL | | | | | | CENTER - | | | | | | LABORATORY | | + + + + + + | BUN | 9 | 7 - 18 mg/dL | [facility] | | | | | | [facility] | | | | | | MEDICAL | | | | | | CENTER - | | | | | | LABORATORY | | + + + + + + | Creatinine | 0.47 (L) | 0.60 - 1.30 | [facility] | | | | | mg/dL | [facility] | | | | | | MEDICAL | | | | | | CENTER - | | | | | | LABORATORY | | + + + + + + | eGFR if not | >60Comment: GLOMERULAR | >=60 | [facility] | | | | FILTRATION | mL/min/1.73m2 | [facility] | | | CYPRIOT | RATE,ESTIMATED | | MEDICAL | | | | mL/min/1.85c5Yewp than | | CENTER - | | [...] + + + + | Calcium | 8.0 (L) | 8.3 - 10.5 | [facility] | | | | | mg/dL | [facility] | | | | | | MEDICAL | | | | | | CENTER - | | | | | | LABORATORY | | + + + + + + | BUN/Creatin | 19.1 | | [facility] | | | ine [...] | + + + + + | [facility] | [address] | [place] | [phone] | | [facility] | | [address] | | | - LABORATORY | | | | + + + + + ECG 12 lead (05/28/2017 12:27 AM PDT) + + + + + + | Component | Value | Ref Range | Performed | Pathologist | | | | | At | Signature | + + + + + + | VENTRICULAR | 78 | BPM | [facility] | | | RATE EKG | | | | | + + + + + + | ATRIAL RATE | 78 | BPM | [facility] | | + + + + + + | P-R | 130 | ms | [facility] | | | INTERVAL | | | | | + + + + + + | QRS | 82 | ms | [facility] | | | DURATION | | | | | + + + + + + | Q-T | 408 | ms | [facility] | | | INTERVAL | | | | | + + + + + + | Q-T | 465 | ms | [facility] | | | INTERVAL | | | | | | (CORRECTED) | | | | | + + + + + + | P WAVE AXIS | 71 | degrees | [facility] | | + + + + + + | QRS AXIS | 53 | degrees | [facility] | | + + + + + + | T AXIS | 81 | degrees | [facility] | | + + + + + + | INTERPRETAT | Poor data quality, | | [facility] | | | ION TEXT | interpretation may be | | | | | | adversely affectedleads | | | | | | V5 and V6 cannot be | | | | | | interpretedSinus rhythm | | | | | | with marked sinus | | | | | | arrhythmiaAbnormal | | | | | | ECGWhen compared with | | | | | | ECG of 27-MAY-2017 | | | | | | 22:20, | | | | | | (Unconfirmed)Sinus | | | | | | rhythm has replaced | | | | | | Atrial fibrillationVent. | | | | | | rate has decreased BY | | | | | | [address] | | | | | | abnormalities have shown | | | | | | a trend towards | | | | | | normalizationConfirmed | | | | | | by TRACIE RAMOS MD | | | | | | ([id number]) on 05/28/2017 | | | | | | 6:19:42 AM | | | | + + [...] | | | + +---------+ + + Culture, MRSA (05/27/2017 11:42 PM PDT) + + + + + + | Component | Value | Ref Range | Performed | Pathologist | | | | | At | Signature | + + + + + + | Culture | Negative for MRSA by | | [facility] | | | | chromogenic agar method | | [facility] | | | [facility] | | MEDICAL | | | | | | CENTER - | | | | | | LABORATORY | | + + + + + + | Culture | 1+ Staphylococcus | | [facility] | | | | coagulase positive | | [facility] | | | | | | MEDICAL | | | | | | CENTER - | | | | | | LABORATORY | | + + + + + + + + | Specimen | + + | Respiratory - Both | | anterior nares (body | | structure) | + + + + + + + | Performing | Address | City/State/Zipcode | Phone Number | | Organization | | | | + + + + + | [facility] | [address] | [place] | [phone] | | [facility] | | [address] | | | - LABORATORY | | | | + + + + + Potassium (05/27/2017 11:04 PM PDT) + +---------+ + + + | Component | Value | Ref Range | Performed | Pathologist | | | | | At | Signature | + +---------+ + + + | K | 3.0 (L) | 3.5 - 5.1 | [facility] | | | | | mmol/L | [facility] | | | | | | [facility] | | | | | | [facility] - | | | | | | LABORATORY | | + +---------+ + + + + + | Specimen | + + | Blood | + + + + + + + | Performing | Address | City/State/Zipcode | Phone Number | | Organization | | | | + + + + + | [facility] | [address] | [place] | [phone] | | [facility] | | [address] | | | - LABORATORY | | | | + + + + + Magnesium (05/27/2017 11:04 PM PDT) + +-------+ + + + | Component | Value | Ref Range | Performed | Pathologist | | | | | At | Signature | + +-------+ + + + | Magnesium | 1.8 | 1.8 - 2.5 mg/dL | [facility] | | | | | | [facility] | | | | | | MEDICAL | | | | | | CENTER - | | | | | | LABORATORY | | + +-------+ + + + + + | Specimen | + + | Blood | + + + + + + + | Performing | Address | City/State/Zipcode | Phone Number | | Organization | | | | + + + + + | [facility] | [address] | [place] | [phone] | | [facility] | | [address] | | | - LABORATORY | | | | + + + + + ECG 12 lead (05/27/2017 10:20 PM PDT) + + + + + + | Component | Value | Ref Range | Performed | Pathologist | | | | | At | Signature | + + + + + + | VENTRICULAR | 148 | BPM | [facility] | | | RATE EKG | | | | | + + + + + + | QRS | 72 | ms | [facility] | | | DURATION | | | | | + + + + + + | Q-T | 308 | ms | [facility] | | | INTERVAL | | | | | + + + + + + | Q-T | 483 | ms | [facility] | | | INTERVAL | | | | | | (CORRECTED) | | | | | + + + + + + | QRS AXIS | 41 | degrees | [facility] | | + + + + + + | T AXIS | 152 | degrees | [facility] | | + + + + + + | INTERPRETAT | Atrial fibrillation with | | [facility] | | | ION TEXT | rapid ventricular | | | | | | responseST abnormalities | | | | | | which may be related | | | | | | to rate and/or | | | | | | ischemia/infarctionAbnor | | | | | | mal ECGWhen compared | | | | | | with ECG of 27-MAY-2017 | | | | | | 16:20, | | | | | | (Unconfirmed)Atrial | | | | | | fibrillation has | | | | | | replaced Sinus | | | | | | rhythmVent. rate has | | | | | | increased BY 70 BPMST | | | | | | abnormalities are more | | | | | | prominentReconfirmed by | | | | | | TRACIE RAMOS MD ([id number]) | | | | | | on 05/28/2017 6:20:16 AM | | | | + + [...] | | | + +---------+ + + Urinalysis with Microscopic with Culture if Indicated (05/27/2017 6:43 PM PDT) + + + + + + | Component | Value | Ref Range | Performed | Pathologist | | | | | At | Signature | + + + + + + | Color, | Yellow | Light Yellow, | [facility] | | | Urine | | Yellow, Straw | [facility] | | | | | | MEDICAL | | | | | | CENTER - | | | | | | LABORATORY | | + + + + + + | Clarity | Hazy (A) | Clear | [facility] | | | | | | [facility] | | | | | | [facility] | | | | | | CENTER - | | | | | | LABORATORY | | + + + + + + | pH, Urine | 5.0 | 5.0 - 8.0 | [facility] | | | | | | [facility] | | | | | | [facility] | | | | | | [facility] - | | | | | | LABORATORY | | + + + + + + | Specific | 1.017 | 1.001 - 1.030 | [facility] | | | [place], | | | [facility] | | | Urine | | | MEDICAL | | | | | | CENTER - | | | | | | LABORATORY | | + + + + + + | Protein, | Negative | Negative | [facility] | | | Urine | | | [facility] | | | | | | MEDICAL | | | | | | CENTER - | | | | | | LABORATORY | | + + + + + + | Blood, | Small (A) | Negative | [facility] | | | Urine | | | [facility] | | | | | | MEDICAL | | | | | | CENTER - | | | | | | LABORATORY | | + + + + + + | Glucose, | Negative | Negative | [facility] | | | Urine | | | [facility] | | | | | | MEDICAL | | | | | | CENTER - | | | | | | LABORATORY | | + + + + + + | Ketones, | Negative | Negative | [facility] | | | Urine | | | [facility] | | | | | [facility] | | | | [facility] - | | | | | | LABORATORY | | + + + + + + | Bilirubin, | Negative | Negative | [facility] | | | Urine | | | [facility] | | [facility] | | [facility] | | | | [facility] - | | | | | | LABORATORY | | + + + + + + | Nitrite, | Negative | Negative | [facility] | | | Urine | | | [facility] | | | | | | [facility] | | | | | [facility] - | | | | | | LABORATORY | | + + + + + + | Leukocyte | Negative | Negative | [facility] | | | Esterase, | | | [facility] | | | Urine | | | [facility] | | | | | | [facility] - | | | | | | LABORATORY | | + + + + + + | Urobilinoge | Negative | 0.2 mg/dL, 1.0 | [facility] | | | n, Urine | | mg/dL, Negative | [facility] | | | | | | [facility] | | | | | | [facility] - | | | | | | LABORATORY | | + + + + + + | White Blood | 0-2 | 0 - 2 /HPF | [facility] | | | Cells, | | | [facility] | | | Urine | | | MEDICAL | | | | | | CENTER - | | | | | | LABORATORY | | + + + + + + | Red Blood | 0-2 | 0 - 2 /HPF | [facility] | | | Cells, | | | [facility] | | | Urine | | | MEDICAL | | | | | | CENTER - | | | | | | LABORATORY | | + + + + + + | Squamous | 15-25 (A) | 0 - 2 /LPF | [facility] | | | Epithelial | | | [facility] | | | Cells, | | | MEDICAL | | | Urine | | | CENTER - | | | | | | LABORATORY | | + + + + + + | Bacteria, | Negative | Negative /HPF | [facility] | | | Urine | | | [facility] | | | | | | [facility] | | | | | | C[facility] - | | | | | | LABORATORY | | + + + + + + | Urine | Urine Culture Not | | [facility] | | | Comment | Indicated | | [facility] | | | | | | [facility] | | | | | | [facility] - | | | | | | LABORATORY | | + + + + + + + + | Specimen | + + | Urine | + + + + + + + | Performing | Address | City/State/Zipcode | Phone Number | | Organization | | | | + + + + + | [facility] | [address] | [place], [place] | [phone] | | [facility] | | [address] | | | - LABORATORY | | | | + + + + + Culture, Blood (05/27/2017 4:59 PM PDT) + + + + + + | Component | Value | Ref Range | Performed | Pathologist | | | | | At | Signature | + + + + + + | Culture | No Growth | | [facility] | | | | | | [facility] | | | | | | [facility] | | | | | | [facility] - | | | | | | LABORATORY | | + + + + + + + + | Specimen | + + | Blood - Peripheral | | blood specimen | | (specimen) | + + + + + + + | Performing | Address | City/State/Zipcode | Phone Number | | Organization | | | | + + + + + | [facility] | [address] | [place] | [phone] | | [facility] | | [address] | | | - LABORATORY | | | | + + + + + Culture, Blood (05/27/2017 4:49 PM PDT) + + + + + + | Component | Value | Ref Range | Performed | Pathologist | | | | | At | Signature | + + + + + + | Culture | No Growth | | [facility] | | | | | | [facility] | | [facility] | [facility] | | | | | | [facility] - | | | | | | LABORATORY | | + + + + + + + + | Specimen | + + | Blood - Peripheral | | blood specimen | | (specimen) | + + + + + + + | Performing | Address | City/State/Zipcode | Phone Number | | Organization | | | | + + + + + | [facility] | [address] | [place] | [phone] | | [facility] | | [address] | | | - LABORATORY | | | | + + + + + Comprehensive Metabolic Panel (05/27/2017 4:49 PM PDT) + + + + + + | Component | Value | Ref Range | Performed | Pathologist | | | | | At | Signature | + + + + + + | Na | 135 (L) | 136 - 149 | [facility] | | | | | mmol/L | [facility] | | [facility] | [facility] | | | | | | [facility] - | | | | | | LABORATORY | | + + + + + + | K | 3.0 (L) | 3.5 - 5.1 | [facility] | | | | | mmol/L | [facility] | | | | | | [facility] | | | | | | CENTER - | | | | | | LABORATORY | | + + + + + + | Cl | 101 | 98 - 109 mmol/L | [facility] | | | | | | [facility] | | | | | | [facility] | | | | | | CENTER - | | | | | | LABORATORY | | + + + + + + | CO2 | 26 | 24 - 31 mmol/L | [facility] | | | | | | [facility] | | | | | | [facility] | | | | | | CENTER - | | | | | | LABORATORY | | + + + + + + | Anion Gap | 8 | 3 - 16 mmol/L | [facility] | | | | | | [facility] | | | | | [facility] | | | | | | C[facility] - | | | | | | LABORATORY | | + + + + + + | Glucose | 131 (H) | 70 - 109 mg/dL | [facility] | | | | | | [facility] | | | | | | [facility] | | | | | | C[facility] - | | | | | | LABORATORY | | + + + + + + | BUN | 9 | 7 - 18 mg/dL | [facility] | | | | | | [facility] | | | | | | [facility] | | | | | | C[facility] - | | | | | | LABORATORY | | + + + + + + | Creatinine | 0.49 (L) | 0.60 - 1.30 | [facility] | | | | | mg/dL | [facility] | | | | | | [facility] | | | | | | CENTER - | | | | | | LABORATORY | | + + + + + + | eGFR if not | >60Comment: GLOMERULAR | >=60 | [facility] | | | | FILTRATION | mL/min/1.73m2 | [facility] | | | CYPRIOT | RATE,ESTIMATED | | MEDICAL | | | | mL/min/1.96i5Fyco than | | CENTER - | | [...] + + + + | Calcium | 8.0 (L) | 8.3 - 10.5 | [facility] | | | | | mg/dL | [facility] | | | | | | [facility] | | | | | | CENTER - | | | | | | LABORATORY | | + + + + + + | Albumin | 2.9 (L) | 3.2 - 5.0 g/dL | [facility] | | | | | | [facility] | | | | | | [facility] | | | | | | CENTER - | | | | | | LABORATORY | | + + + + + + | Bilirubin | 0.7 | 0.1 - 1.5 mg/dL | [facility] | | | Total | | | [facility] | | | | | | [facility] | | | | | | CENTER - | | | | | | LABORATORY | | + + + + + + | Total | 6.1 | 6.0 - 7.8 g/dL | [facility] | | | Protein | | | [facility] | | | | | | [facility] | | | | | | CENTER - | | | | | | LABORATORY | | + + + + + + | AST | 54 (H) | 10 - 42 U/L | [facility] | | | | | | [facility] | | | | | | [facility] | | | | | | CENTER - | | | | | | LABORATORY | | + + + + + + | ALT | 31 | 6 - 45 U/L | [facility] | | | | | | [facility] | | | | | | [facility] | | | | | | CENTER - | | | | | | LABORATORY | | + + + + + + | Alkaline | 55 | 40 - 110 U/L | [facility] | | | Phosphatase | | | [facility] | | | | | | [facility] | | | | | | CENTER - | | | | | | LABORATORY | | + + + + + + | Globulin | 3.2 | 2.1 - 3.8 g/dL | [facility] | | | | | | [facility] | | | | | | [facility] | | | | | | C[facility] - | | | | | | LABORATORY | | + + + + + + | Albumin/Elvira | 0.9 | 0.8 - 2.0 | [facility] | | | bulin Ratio | | | [facility] | | | | | | [facility] | | | | | | CENTER - | | | | | | LABORATORY | | + + + + + + | BUN/Creatin | 18.4 | | [facility] | | | ine Ratio | | | [facility] | | [...] | + + + + + | [facility] | [address] | [place] | [phone] | | [facility] | | [address] | | | - LABORATORY | | | | + + + + + CBC with Differential (05/27/2017 4:49 PM PDT) + + + + + + | Component | Value | Ref Range | Performed | Pathologist | | | | | At | Signature | + + + + + + | WBC | 12.3 (H) | 4.0 - 11.0 K/uL | [facility] | [facility] - | | | | | | LAB[facility]ATORY | | + + + + + + | RBC | 3.32 (L) | 3.70 - 5.20 | [facility] | | | | | M/uL | [facility] | | | | | [facility] | | | | | | CENTER - | | | | | | LABORATORY | | + + + + + + | Hemoglobin | 10.2 (L) | 11.5 - 16.0 | [facility] | | | | | g/dL | [facility] | | | | | | [facility] | | | | | | CENTER - | | | | | | LABORATORY | | + + + + + + | Hematocrit | 31.0 (L) | 34.0 - 47.0 % | [facility] | | | | | | [facility] | | | | | | [facility] | | | | | | CENTER - | | | | | | LABORATORY | | + + + + + + | MCV | 93.4 | 83.0 - 101.0 fL | [facility] | | | | | | [facility] | | | | | | [facility] | | | | | | C[facility] - | | | | | | LABORATORY | | + + + + + + | MCH | 30.6 | 28.0 - 35.0 pg | [facility] | | | | | | [facility] | | | | | | [facility] | | | | | | CENTER - | | | | | | LABORATORY | | + + + + + + | MCHC | 32.8 | 32.0 - 36.0 | [facility] | | | | | g/dL | [facility] | | | | | | [facility] | | | | | | CENTER - | | | | | | LABORATORY | | + + + + + + | RDW-CV | 14.4 | <15.0 % | [facility] | | | | | | [facility] | | | | | | [facility] | | | | | | CENTER - | | | | | | LABORATORY | | + + + + + + | Platelet | 185 | 140 - 440 K/uL | [facility] | | | Count | | | [facility] | | | | | | [facility] | | | | | | CENTER - | | | | | | LABORATORY | | + + + + + + | MPV | 8.1 | fL | [facility] | | | | | | [facility] | | | | | | [facility] | | | | | | CENTER - | | | | | | LABORATORY | | + + + + + + | % | 80.4 | 45.0 - 82.0 % | [facility] | | | Neutrophils | | | [facility] | | | | | | [facility] | | | | | | CENTER - | | | | | | LABORATORY | | + + + + + + | % | 8.3 (L) | 20.0 - 45.0 % | [facility] | | | Lymphocytes | | | [facility] | | | | | | [facility]ICAL | | | | | | CENTER - | | | | | | LABORATORY | | + + + + + + | % Monocytes | 10.5 | 4.0 - 12.0 % | [facility] | | | | | | [facility] | | | | | | [facility] | | | | | | CENTER - | | | | | | LABORATORY | | + + + + + + | % | 0.4 | 0.0 - 5.0 % | [facility] | | | Eosinophils | | | [facility] | | | | | | [facility] | | | | | | CENTER - | | | | | | LABORATORY | | + + + + + + | % Basophils | 0.4 | 0.0 - 1.0 % | [facility] | | | | | | [facility] | | | | | | [facility] | | | | | | CENTER - | | | | | | LABORATORY | | + + + + + + | Absolute | 9.90 (H) | 1.80 - 8.50 | [facility] | | | Neutrophils | | K/uL | [facility] | | | | | | [facility] | | | | | | CENTER - | | | | | | LABORATORY | | + + + + + + | Absolute | 1.00 | 0.60 - 3.20 | [facility] | | | Lymphocytes | | K/uL | [facility] | | | | | | [facility] | | | | | | CENTER - | | | | | | LABORATORY | | + + + + + + | Absolute | 1.30 (H) | 0.00 - 1.00 | [facility] | [...] | Basophils | | K/uL | [facility] | [...] + + | [facility] | [address] | [place] | [phone] | | [facility] | | [address] | | | - LABORATORY | | | | + + + + + XR Chest AP Portable (05/27/2017 4:31 PM PDT) + + | Specimen | + + | | + + + + + | Narrative | Performed At | + + + | SINGLE AP CHEST 05/27/2017 4:31 PM CLINICAL HISTORY: post op | [facility] | | confusion COMPARISON: Chest radiographs May 01 FINDINGS: | | | There is thoracic aortic calcification. The cardiomediastinal | | | silhouette and pulmonary vasculature are otherwise unremarkable. | | | Mild basilar reticular opacity favors atelectasis in the setting of | | | slightly low lung volumes. The lungs are clear elsewhere without | | | visible pneumothorax or pleural effusion. Lumbar fusion hardware is | | | minimally imaged. Bones and soft tissues are otherwise | | | unremarkable. IMPRESSION - 1. MILD BASILAR RETICULAR | | | OPACITY FAVORING ATELECTASIS IN THE SETTING OF LOW LUNG VOLUMES. | | | Dictated and Signed by: Jossue Grayson MD Electronically signed: | | | 05/27/2017 5:42 PM | | + + + + + | Procedure Note | + + | Tomer, Rad Results In - 05/27/2017 5:45 PM PDT SINGLE AP CHEST 05/27/2017 4:31 PM | | | | CLINICAL HISTORY: post op confusion | | | | COMPARISON: Chest radiographs May 01 | | | | FINDINGS: There is thoracic aortic calcification. The cardiomediastinal | | silhouette and pulmonary vasculature are otherwise unremarkable. Mild basilar | | reticular opacity favors atelectasis in the setting of slightly low lung | | volumes. The lungs are clear elsewhere without visible pneumothorax or pleural | | effusion. Lumbar fusion hardware is minimally imaged. Bones and soft tissues | | are otherwise unremarkable. | | | | IMPRESSION - | | | | 1. MILD BASILAR RETICULAR OPACITY FAVORING ATELECTASIS IN THE SETTING OF LOW | | LUNG VOLUMES. | | | | Dictated and Signed by: Jossue Grayson MD | | Electronically signed: 05/27/2017 5:42 PM | + + + +---------+ + + | Performing | Address | City/State/Zipcode | Phone Number | | Organization | | | | + +---------+ + + | [facility] | | | | + +---------+ + + ECG 12 lead (05/27/2017 4:20 PM PDT) + + + + + + | Component | Value | Ref Range | Performed | Pathologist | | | | | At | Signature | + + + + + + | VENTRICULAR | 78 | BPM | [facility] | | | RATE EKG | | | | | + + + + + + | ATRIAL RATE | 78 | BPM | [facility] | | + + + + + + | P-R | 132 | ms | [facility] | | | INTERVAL | | | | | + + + + + + | QRS | 74 | ms | [facility] | | | DURATION | | | | | + + + + + + | Q-T | 386 | ms | [facility] | | | INTERVAL | | | | | + + + + + + | Q-T | 440 | ms | [facility] | | | INTERVAL | | | | | | (CORRECTED) | | | | | + + + + + + | P WAVE AXIS | 61 | degrees | [facility] | | + + + + + + | QRS AXIS | 42 | degrees | [facility] | | + + + + + + | T AXIS | 77 | degrees | [facility] | | + + + + + + | INTERPRETAT | Normal sinus rhythm with | | [facility] | | | ION TEXT | sinus | | | | | | arrhythmiaNonspecific ST | | | | | | abnormalityAbnormal | | | | | | ECGWhen compared with | | | | | | ECG of 01-MAY-2017 | | | | | | 13:13,Vent. rate has | | | | | | increased BY 27 | | | | | | BPMnonspecific ST | | | | | | abnormalities are now | | | | | | presentConfirmed by | | | | | | TRACIE RAMOS MD ([id number]) | | | | | | on 05/28/2017 6:17:57 AM | | | | + + [...] | | | + +---------+ + + CT Head wo Contrast (05/26/2017 8:56 PM PDT) + + | Specimen | + + | | + + + + + | Narrative | Performed At | + + + | CT HEAD WO CONTRAST 05/26/2017 8:56 PM HISTORY: post op | [facility] | | hypertension with double vision. COMPARISON: None. PROTOCOL: | | | Axial images of the head were obtained along with coronal and sagittal | | | reformations. FINDINGS: There is mild age-related brain volume | | | loss with enlargement of the ventricles, cisterns, and sulci. A | | | minimal amount of periventricular white matter hypodensity are | | | present, consistent with small vessel ischemic disease. The brain | | | parenchyma demonstrates no evidence for acute infarct, mass lesion, or | | | hemorrhage. The brainstem is unremarkable. The cerebellum is normal. | | | The pituitary gland is grossly normal. Mild atherosclerosis are | | | visualized of the carotid and vertebral arteries. Bilateral ocular | | | prostheses are visualized. Moderate mucosal thickening are in the | | | ethmoid sinuses. There is a small mucus retention cyst in the | | | posterior aspect of the left maxillary sinus. Minimal mucosal | | | thickening is in the left maxillary sinus. Mastoid air cells are | | | normal. Calvarium, temporal bones, and skull base structures are | | | unremarkable. IMPRESSION - No acute findings. Senescent | | | changes. A preliminary report was sent by [employer] with no | | | significant discrepancy. Dictated and Signed by: Ilya Garcai MD | | | Electronically signed: 05/27/2017 8:24 AM | | + + + + + | Procedure Note | + + | Tomer, Rad Results In - 05/27/2017 8:[address] HEAD WO CONTRAST 05/26/2017 8:56 PM | | | | HISTORY: post op hypertension with double vision. | | | | COMPARISON: None. | | | | PROTOCOL: Axial images of the head were obtained along with coronal and sagittal | | reformations. | | | | FINDINGS: | | There is mild age-related brain volume loss with enlargement of the ventricles, | | cisterns, and sulci. A minimal amount of periventricular white matter | | hypodensity are present, consistent with small vessel ischemic disease. The | | brain parenchyma demonstrates no evidence for acute infarct, mass lesion, or | | hemorrhage. The brainstem is unremarkable. The cerebellum is normal. The | | pituitary gland is grossly normal. | | | | Mild atherosclerosis are visualized of the carotid and vertebral arteries. | | | | Bilateral ocular prostheses are visualized. Moderate mucosal thickening are in | | the ethmoid sinuses. There is a small mucus retention cyst in the posterior | | aspect of the left maxillary sinus. Minimal mucosal thickening is in the left | | maxillary sinus. Mastoid air cells are normal. | | | | Calvarium, temporal bones, and skull base structures are unremarkable. | | | | IMPRESSION - | | No acute findings. | | | | Senescent changes. | | | | A preliminary report was sent by [employer] with no significant | | discrepancy. | | | | Dictated and Signed by: Ilya Garcia MD | | Electronically signed: 05/27/2017 8:24 AM | + + + +---------+ + + | Performing | Address | City/State/Zipcode | Phone Number | | Organization | | | | + +---------+ + + | [facility] | | | | + +---------+ + + XR Lumbar Spine 2 or 3 Vw (05/26/2017 4:09 PM PDT) + + | Specimen | + + | | + + + + + | Narrative | Performed At | + + + | XR LUMBAR SPINE 2 OR 3 VW 05/26/2017 4:09 PM HISTORY: post op | [facility] | | lumbar surgery. COMPARISON: 07/15/2016 FINDINGS: Interval PLIF | | | and placement of interbody spacers extending from L2 through S1, | | | without evidence of immediate postoperative complication. Vertebral | | | body heights and lumbar alignment is maintained. Vascular | | | calcifications are noted. Expected postsurgical soft tissue changes | | | are seen. IMPRESSION - Interval PLIF and placement of interbody | | | spacers extending from L2 through S1, without evidence of immediate | | | postoperative complication. Dictated and Signed by: Rafael | | | MD Zbigniew Electronically signed: 05/26/2017 4:19 PM | | + + + + + | Procedure Note | + + | Tomer, Rad Results In - 05/26/2017 4:22 PM PDT XR LUMBAR SPINE 2 OR 3 VW 05/26/2017 | | 4:09 PMHISTORY: post op lumbar surgery.COMPARISON: 07/15/2016FINDINGS:Interval PLIF and | | placement of interbody spacers extending from L2 through S1,without evidence of | | immediate postoperative complication.Vertebral body heights and lumbar alignment is | | maintained.Vascular calcifications are noted.Expected postsurgical soft tissue changes | | are seen. IMPRESSION -Interval PLIF and placement of interbody spacers extending from L2 | | through S1,without evidence of immediate postoperative complication.Dictated and Signed | | by: Rafael Coy MD Electronically signed: 05/26/2017 4:19 PM | |without evidence of immediate postoperative complication. | |Vertebral body heights and lumbar alignment is maintained. | |Vascular calcifications are noted. | |Expected postsurgical soft tissue changes are seen. | | | |IMPRESSION - | |Interval PLIF and placement of interbody spacers extending from L2 through S1, | |without evidence of immediate postoperative complication. | | | |Dictated and Signed by: Rafael Coy MD | | Electronically signed: 05/26/2017 4:19 PM | + + + +---------+ + + | Performing | Address | City/State/Zipcode | Phone Number | | Organization | | | | + +---------+ + + | [facility] | | | | + +---------+ + + FL C-Arm Stats No Charge (05/26/2017 12:10 PM PDT) + + | Specimen | [...] + | Diagnosis | + + | Gait abnormality - Primary Abnormality of gait | + + | Atrial fibrillation with RVR (HCC) Atrial fibrillation | + + | Status post lumbar spinal fusion Arthrodesis status | + + | Anxiety state, unspecified | + + | Delirium due to multiple etiologies | + + | Depression, unspecified depression type | + + | Acute metabolic encephalopathy | + + | Anxiety state, unspecified | + + documented in this encounter Administered Medications + +--------+ +--------+------+------+ | Medication Order | MAR | Action | Dose | Rate | Site | | | Action | Date | | | | + +--------+ +--------+------+------+ | acetaminophen (TYLENOL) tablet | Given | 06/04/20 | 650 mg | | | | 650 mg 650 mg, Oral, EVERY 4 | | 17 8:04 | | | | | HOURS PRN, Pain, Fever, Starting | | PM PDT | | | | | 05/26/17 at 1626 | | | | | | + +--------+ +--------+------+------+ +-------+ +--------+---+---+ | Given | 06/03/20 | 650 mg | | | | | 17 3:40 | | | | | | PM PDT | | | | +-------+ +--------+---+---+ | Given | 06/01/20 | 650 mg | | | | | 17 7:40 | | | | | | AM PDT | | | | +-------+ +--------+---+---+ +---+---+ | | | +---+---+ + +-------+ +--------+---+---+ | acetaminophen (TYLENOL) tablet | Given | 05/26/20 | 975 mg | | | | 975 mg 975 mg (rounded from | | 17 6:51 | | | | | 1,000 mg), Oral, ONCE, Tue | | AM PDT | | | | | 05/26/17 at 0645, For 1 dose, | | | | | | | Pre-op | | | | | | + +-------+ +--------+---+---+ +---+---+ | | | +---+---+ + +---------+ + +-------+---+ | amiodarone (CORDARONE) 1.8 | New Bag | 05/29/20 | 1 mg/min | 33.3 | | | mg/mL in dextrose 5% 500 mL | | 17 7:04 | | mL/hr | | | infusion 1 mg/min (33.3333 | | PM PDT | | | | | mL/hr, rounded to 33.3 mL/hr), at | | | | | | | 33.3 mL/hr, Intravenous, | | | | | | | TITRATED, Starting 05/29/17 at | | | | | | | 1900, For 6 hours, Use 0.22 | | | | | | | micron filter for | | | | | | | administration., | | | | | | + +---------+ + +-------+---+ +---+---+ | | | +---+---+ + +---------+ +--------+-------+---+ | amiodarone (CORDARONE) 1.8 | New Bag | 05/30/20 | 0.5 | 16.7 | | | mg/mL in dextrose 5% 500 mL | | 17 2:03 | mg/min | mL/hr | | | infusion 0.5 mg/min (16.6667 | | AM PDT | | | | | mL/hr, rounded to 16.7 mL/hr), at | | | | | | | 16.7 mL/hr, Intravenous, | | | | | | | TITRATED, Starting Thu05/30/17 at | | | | | | | 0104, For 18 hours, Use 0.22 | | | | | | | micron filter for | | | | | | | administration., | | | | | | + +---------+ +--------+-------+---+ +---+---+ | | | +---+---+ + +-------+ +--------+---+---+ | amiodarone (PACERONE) tablet | Given | 06/06/20 | 400 mg | | | | 400 mg 400 mg, Oral, 2 TIMES | | 17 8:37 | | | | | DAILY, First dose on 05/30/17 | | AM PDT | | | | | at 1900 | | | | | | + +-------+ +--------+---+---+ +-------+ +--------+---+---+ | Given | 06/05/20 | 400 mg | | | | | 17 9:31 | | | | | | PM PDT | | | | +-------+ +--------+---+---+ | Given | 06/05/20 | 400 mg | | | | | 17 9:02 | | | | | | AM PDT | | | | +-------+ +--------+---+---+ +---+---+ | | | +---+---+ + +-------+ +--------+-------+---+ | amiodarone in dextrose | Given | 05/29/20 | 150 mg | 600 | | | (NEXTERONE) 150 mg/100 mL bolus | | 17 6:49 | | mL/hr | | | 150 mg 150 mg, Intravenous, | | PM PDT | | | | | Administer over 10 Minutes, ONCE, | | | | | | | 05/29/17 at 1900, For 1 dose, | | | | | | | For Rhythm Control, | | | | | | + +-------+ +--------+-------+---+ +---+---+ | | | +---+---+ + +-------+ +--------+-------+---+ | amiodarone in dextrose | Given | 05/31/20 | 150 mg | 600 | | | (NEXTERONE) 150 mg/100 mL bolus | | 17 4:26 | | mL/hr | | | 150 mg 150 mg, Intravenous, | | AM PDT | | | | | Administer over 10 Minutes, ONCE, | | | | | | | 05/31/17 at 0430, For 1 dose, | | | | | | | Use 0.22 micron filter for | | | | | | | administration., | | | | | | + +-------+ +--------+-------+---+ +---+---+ | | | +---+---+ + +-------+ +--------+-------+---+ | amiodarone in dextrose | Given | 05/31/20 | 150 mg | 600 | | | (NEXTERONE) 150 mg/100 mL bolus | | 17 12:38 | | mL/hr | | | 150 mg 150 mg, Intravenous, | | PM PDT | | | | | Administer over 10 Minutes, ONCE, | | | | | | | 05/31/17 at 1245, For 1 dose, | | | | | | | Use 0.22 micron filter for | | | | | | | administration., | | | | | | + +-------+ +--------+-------+---+ +---+---+ | | | +---+---+ + +-------+ +--------+-------+---+ | amiodarone in dextrose | Given | 05/31/20 | 150 mg | 600 | | | (NEXTERONE) 150 mg/100 mL bolus | | 17 5:50 | | mL/hr | | | 150 mg 150 mg, Intravenous, | | PM PDT | | | | | Administer over 10 Minutes, ONCE, | | | | | | | [place] 05/31/17 at 1800, For 1 dose, | | | | | | | Use 0.22 micron filter for | | | | | | | administration., | | | | | | + +-------+ +--------+-------+---+ +---+---+ | | | +---+---+ + +-------+ +--------+-------+---+ | amiodarone in dextrose | Given | 05/31/20 | 150 mg | 600 | | | (NEXTERONE) 150 mg/100 mL bolus | | 17 10:49 | | mL/hr | | | 150 mg 150 mg, Intravenous, | | PM PDT | | | | | Administer over 10 Minutes, ONCE, | | | | | | | [place] 05/31/17 at 2315, For 1 dose, | | | | | | | Use 0.22 micron filter for | | | | | | | administration., | | | | | | + +-------+ +--------+-------+---+ + +---+ | | | + +---+ | amiodarone in dextrose | | | (NEXTERONE) 150 mg/100 mL bolus | | | Starting Thu05/29/17 at 1847, For | | | 1 dose, [place]: shanna | | | override, | | + +---+ | | | + +---+ + +---------+ +-----+-------+---+ | ampicillin-sulbactam (UNASYN) 3 | New Bag | 06/06/20 | 3 g | 200 | | | g in sodium chloride 0.9% 100 mL | | 17 6:28 | | mL/hr | | | IVPB 3 g, Intravenous, | | AM PDT | | | | | Administer over 30 Minutes, EVERY | | | | | | | 6 HOURS (4 times per day), First | | | | | | | dose on Thu06/01/17 at 1930, | | | | | | | Pharmacist may adjust Activate | | | | | | | system and mix before use., | | | | | | | Indications: Cellulitis | | | | | | + +---------+ +-----+-------+---+ +---------+ +-----+-------+---+ | New Bag | 06/06/20 | 3 g | 200 | | | | 17 12:57 | | mL/hr | | | | AM PDT | | | | +---------+ +-----+-------+---+ | New Bag | 06/05/20 | 3 g | 200 | | | | 17 5:30 | | mL/hr | | | | PM PDT | | | | +---------+ +-----+-------+---+ +---+---+ | | | +---+---+ + +-------+ +------+---+---+ | apixaban (ELIQUIS) tablet 5 mg | Given | 06/06/20 | 5 mg | | | | 5 mg, Oral, 2 TIMES DAILY, First | | 17 8:37 | | | | | dose on Thu06/02/17 at 0900 | | AM PDT | | | | + +-------+ +------+---+---+ +-------+ +------+---+---+ | Given | 06/05/20 | 5 mg | | | | | 17 9:31 | | | | | | PM PDT | | | | +-------+ +------+---+---+ | Given | 06/05/20 | 5 mg | | | | | 17 9:03 | | | | | | AM PDT | | | | +-------+ +------+---+---+ +---+---+ | | | +---+---+ + +---------+ +-----+-------+---+ | ceFAZolin in saline (ANCEF) | New Bag | 05/27/20 | 2 g | 100 | | | IVPB 2 g 2 g, Intravenous, | | 17 12:57 | | mL/hr | | | Administer over 30 Minutes, EVERY | | AM PDT | | | | | 8 HOURS INTERVAL, First dose on | | | | | | | 05/26/17 at 1645, For 2 doses, | | | | | | | Start 8 hours after previous | | | | | | | dose. Last dose to be given | | | | | | | within 24 hours of surgery end | | | | | | | time. Keep in refrigerator., | | | | | | | Post-op/Phase II, Indications: | | | | | | | Surgical Prophylaxis | | | | | | + +---------+ +-----+-------+---+ +---------+ +-----+-------+---+ | New Bag | 05/26/20 | 2 g | 100 | | | | 17 5:20 | | mL/hr | | | | PM PDT | | | | +---------+ +-----+-------+---+ +---+---+ | | | +---+---+ + +-------+ +--------+---+---+ | dilTIAZem (CARDIZEM CD) 24 hr | Given | 05/29/20 | 120 mg | | | | capsule 120 mg 120 mg, Oral, | | 17 8:28 | | | | | DAILY, First dose on [facility] 05/28/17 | | AM PDT | | | | | at 1345 | | | | | | + +-------+ +--------+---+---+ +-------+ +--------+---+---+ | Given | 05/28/20 | 120 mg | | | | | 17 5:22 | | | | | | PM PDT | | | | +-------+ +--------+---+---+ +---+---+ | | | +---+---+ + +-------+ +--------+---+---+ | dilTIAZem (CARDIZEM CD) 24 hr | Given | 06/06/20 | 120 mg | | | | capsule 120 mg 120 mg, Oral, | | 17 8:37 | | | | | DAILY, First dose on Thu06/01/17 | | AM PDT | | | | | at 1645 | | | | | | + +-------+ +--------+---+---+ +-------+ +--------+---+---+ | Given | 06/05/20 | 120 mg | | | | | 17 9:03 | | | | | | AM PDT | | | | +-------+ +--------+---+---+ | Given | 06/04/20 | 120 mg | | | | | 17 9:57 | | | | | | AM PDT | | | | +-------+ +--------+---+---+ +---+---+ | | | +---+---+ + + + + + +---+ | dilTIAZem (CARDIZEM) 1 mg/mL in | Rate/Dos | 05/29/20 | 10 mg/hr | 10 mL/hr | | | sodium chloride 0.9% 125 mL | e Change | 17 6:13 | | | | | infusion 5-15 mg/hr (5-15 | | AM PDT | | | | | mL/hr), at 5-15 mL/hr, | | | | | | | Intravenous, TITRATED, Starting | | | | | | | [facility] 05/28/17 at 0000, Initial | | | | | | | dose: 5 mg/hr, Goal: HR less than | | | | | | | 100 | | | | | | + + + + + +---+ + + + + +---+ | Rate/Dose Change | 05/29/20 | 15 mg/hr | 15 mL/hr | | | | 17 5:33 | | | | | | AM PDT | | | | + + + + +---+ | Rate/Dose Change | 05/29/20 | 10 mg/hr | 10 mL/hr | | | | 17 5:16 | | | | | | AM PDT | | | | + + + + +---+ + +---+ | | | + +---+ | dilTIAZem (CARDIZEM) 5 mg/mL | | | injection Starting [facility] 05/28/17 | | | at 0953, For 1 dose, MARITA, | | | GENO: shanna corona, | | + +---+ | | | + +---+ + +-------+ +-------+---+---+ | dilTIAZem (CARDIZEM) injection | Given | 05/28/20 | 15 mg | | | | 15 mg 15 mg, Intravenous, ONCE, | | 17 9:50 | | | | | [facility] 05/28/17 at 1015, For 1 dose, | | AM PDT | | | | | Keep in refrigerator., | | | | | | + +-------+ +-------+---+---+ +---+---+ | | | +---+---+ + +-------+ +-------+---+---+ | dilTIAZem (CARDIZEM) injection | Given | 05/28/20 | 25 mg | | | | 25 mg 25 mg, Intravenous, ONCE, | | 17 10:07 | | | | | [facility] 05/28/17 at 1030, For 1 dose, | | AM PDT | | | | | Keep in refrigerator., | | | | | | + +-------+ +-------+---+---+ + +---+ | | | + +---+ | diphenhydrAMINE (BENADRYL) 12.5 | | | mg/5 mL liquid 25 mg 25 mg, | | | Oral, EVERY 4 HOURS PRN, Itching, | | | Starting Thu05/26/17 at 1626, | | | Oral route is preferred., | | + +---+ | | | + +---+ | diphenhydrAMINE (BENADRYL) | | | injection 12.5 mg 12.5 mg, | | | Intravenous, EVERY 4 HOURS PRN, | | | Itching, Starting Thu05/26/17 at | | | 1626, Oral route is preferred., | | + +---+ | | | + +---+ + +-------+ +-------+---+---+ | diphenhydrAMINE (BENADRYL) | Given | 05/28/20 | 25 mg | | | | tablet 25 mg 25 mg, Oral, EVERY | | 17 2:05 | | | | | 4 HOURS PRN, Itching, Starting | | AM PDT | | | | | Thu05/26/17 at 1626, Oral route | | | | | | | is preferred., | | | | | | + +-------+ +-------+---+---+ +---+---+ | | | +---+---+ + +-------+ +--------+---+---+ | docusate sodium (COLACE) | Given | 06/05/20 | 100 mg | | | | capsule 100 mg 100 mg, Oral, 2 | | 17 9:03 | | | | | TIMES DAILY, First dose on Thu | | AM PDT | | | | | 05/26/17 at 2100, First line agent | | | | | | | for constipation, | | | | | | + +-------+ +--------+---+---+ +-------+ +--------+---+---+ | Given | 06/03/20 | 100 mg | | | | | 17 9:08 | | | | | | AM PDT | | | | +-------+ +--------+---+---+ | Given | 06/01/20 | 100 mg | | | | | 17 8:34 | | | | | | PM PDT | | | | +-------+ +--------+---+---+ +---+---+ | | | +---+---+ + +-------+ +---------+---+---+ | enalaprilat (VASOTEC) injection | Given | 05/26/20 | 1.25 mg | | | | 1.25 mg 1.25 mg, Intravenous, | | 17 6:59 | | | | | EVERY 6 HOURS PRN, SBP > 160, | | PM PDT | | | | | Starting 05/26/17 at 1626 | | | | | | + +-------+ +---------+---+---+ +---+---+ | | | +---+---+ + +-------+ +-------+---+ + | enoxaparin (LOVENOX) 80 mg/0.8 | Given | 06/01/20 | 70 mg | | Abdomen- | | mL injection 70 mg 70 mg, | | 17 7:40 | | | RLQ | | Subcutaneous, EVERY 12 HOURS (2 | | PM PDT | | | | | times per day), First dose on Mon | | | | | | | 06/01/17 at 1900 | | | | | | + +-------+ +-------+---+ + +---+---+ | | | +---+---+ + +-------+ +-------+---+---+ | furosemide (LASIX) injection 20 | Given | 05/29/20 | 20 mg | | | | mg 20 mg, Intravenous, ONCE, | | 17 12:18 | | | | | 05/29/17 at 1215, For 1 dose | | PM PDT | | | | + +-------+ +-------+---+---+ +---+---+ | | | +---+---+ + +-------+ +-------+---+---+ | furosemide (LASIX) injection 20 | Given | 06/01/20 | 20 mg | | | | mg 20 mg, Intravenous, 2 TIMES | | 17 4:00 | | | | | DAILY 0800 & 1600, First dose on | | PM PDT | | | | | 05/30/17 at 0815 | | | | | | + +-------+ +-------+---+---+ +-------+ +-------+---+---+ | Given | 06/01/20 | 20 mg | | | | | 17 8:00 | | | | | | AM PDT | | | | +-------+ +-------+---+---+ | Given | 05/31/20 | 20 mg | | | | | 17 4:30 | | | | | | PM PDT | | | | +-------+ +-------+---+---+ +---+---+ | | | +---+---+ + +-------+ +-------+---+---+ | furosemide (LASIX) injection 20 | Given | 06/01/20 | 20 mg | | | | mg 20 mg, Intravenous, ONCE, | | 17 7:41 | | | | | 06/01/17 at 0745, For 1 dose | | AM PDT | | | | + +-------+ +-------+---+---+ +---+---+ | | | +---+---+ + +-------+ +--------+---+---+ | gabapentin (NEURONTIN) capsule | Given | 05/26/20 | 600 mg | | | | 600 mg 600 mg, Oral, ONCE, Tue | | 17 6:51 | | | | | 05/26/17 at 0645, For 1 dose, | | AM PDT | | | | | Pre-op | | | | | | + +-------+ +--------+---+---+ +---+---+ | | | +---+---+ + +-------+ +------+---+---+ | haloperidol lactate (HALDOL) | Given | 05/28/20 | 1 mg | | | | injection 1-2 mg 1-2 mg, | | 17 10:41 | | | | | Intravenous, RT EVERY 1 HOUR PRN, | | AM PDT | | | | | Agitation, Starting [facility] 05/28/17 | | | | | | | at 1022 | | | | | | + +-------+ +------+---+---+ +---+---+ | | | +---+---+ + +-------+ +------+---+---+ | haloperidol lactate (HALDOL) | Given | 05/28/20 | 5 mg | | | | injection 2-5 mg 2-5 mg, | | 17 1:13 | | | | | Intravenous, RT EVERY 1 HOUR PRN, | | PM PDT | | | | | Agitation, Starting [facility] 05/28/17 | | | | | | | at 1047, May give a total of 5 mg | | | | | | | IV/hr until control of delerium, | | | | | | | | | | | | | + +-------+ +------+---+---+ +-------+ +--------+---+---+ | Given | 05/28/20 | 2.5 mg | | | | | 17 11:54 | | | | | | AM PDT | | | | +-------+ +--------+---+---+ | Given | 05/28/20 | 2 mg | | | | | 17 11:15 | | | | | | AM PDT | | | | +-------+ +--------+---+---+ +---+---+ | | | +---+---+ + +-------+ +--------+---+---+ | hydrocortisone (PF) | Given | 05/28/20 | 100 mg | | | | (solu-CORTEF) injection 100 mg | | 17 11:14 | | | | | 100 mg, Intravenous, ONCE, [facility] | | AM PDT | | | | | 05/28/17 at 1115, For 1 dose, Mix | | | | | | | with 2 mL sterile water to make | | | | | | | 50 mg/mL., | | | | | | + +-------+ +--------+---+---+ +---+---+ | | | +---+---+ + +-------+ +-------+---+---+ | hydrocortisone (PF) | Given | 05/26/20 | 25 mg | | | | (solu-CORTEF) injection 25 mg 25 | | 17 10:15 | | | | | mg, Intravenous, EVERY 12 HOURS | | PM PDT | | | | | (2 times per day), First dose on | | | | | | | 05/26/17 at 2100, For 1 dose, | | | | | | | Mix with 2 mL sterile water to | | | | | | | make 50 mg/mL., Post-op/Phase II | | | | | | + +-------+ +-------+---+---+ +---+---+ | | | +---+---+ + +-------+ +-------+---+---+ | hydrocortisone (PF) | Given | 05/29/20 | 50 mg | | | | (solu-CORTEF) injection 50 mg 50 | | 17 5:33 | | | | | mg, Intravenous, EVERY 8 HOURS | | AM PDT | | | | | (3 times per day), First dose on | | | | | | | [facility] 05/28/17 at 1900, Mix with 2 | | | | | | | mL sterile water to make 50 | | | | | | | mg/mL., | | | | | | + +-------+ +-------+---+---+ +-------+ +-------+---+---+ | Given | 05/28/20 | 50 mg | | | | | 17 7:59 | | | | | | PM PDT | | | | +-------+ +-------+---+---+ +---+---+ | | | +---+---+ + +-------+ +---------+---+---+ | HYDROmorphone (DILAUDID) | Given | 05/26/20 | 0.25 mg | | | | injection 0.2-0.5 mg 0.2-0.5 mg, | | 17 1:06 | | | | | Intravenous, EVERY 5 MIN PRN, | | PM PDT | | | | | Pain, Starting Thu05/26/17 at | | | | | | | 1201, Maximum total dose 4 mg. | | | | | | | PACU IV Narcotic Priority: Only | | | | | | | use fentanyl for immediate | | | | | | | post-op pain (one dose) or | | | | | | | breakthrough pain when any other | | | | | | | IV narcotics ordered have been | | | | | | | ineffective (if ordered). If | | | | | | | both morphine and hydromorphone | | | | | | | are ordered, use morphine first, | | | | | | | and use hydromorphone if morphine | | | | | | | ineffective., Recovery/Phase I | | | | | | + +-------+ +---------+---+---+ +-------+ +---------+---+---+ | Given | 05/26/20 | 0.25 mg | | | | | 17 12:57 | | | | | | PM PDT | | | | +-------+ +---------+---+---+ +---+---+ | | | +---+---+ + +-------+ +--------+---+---+ | HYDROmorphone (DILAUDID) | Given | 05/29/20 | 0.5 mg | | | | injection 0.25-0.5 mg 0.25-0.5 | | 17 1:47 | | | | | mg, Intravenous, EVERY 1 HOUR | | AM PDT | | | | | PRN, Pain, Starting [facility] 05/28/17 | | | | | | | at 1158 | | | | | | + +-------+ +--------+---+---+ +-------+ +--------+---+---+ | Given | 05/28/20 | 0.5 mg | | | | | 17 7:49 | | | | | | PM PDT | | | | +-------+ +--------+---+---+ | Given | 05/28/20 | 0.5 mg | | | | | 17 1:26 | | | | | | PM PDT | | | | +-------+ +--------+---+---+ +---+---+ | | | +---+---+ + +-------+ +-------+---+---+ | labetalol (TRANDATE) 5 mg/mL | Given | 05/26/20 | 10 mg | | | | injection 10 mg 10 mg, | | 17 6:13 | | | | | Intravenous, EVERY 10 MIN PRN, | | PM PDT | | | | | PRN SBP >160 with P >70, Starting | | | | | | | 05/26/17 at 1626 | | | | | | + +-------+ +-------+---+---+ +-------+ +-------+---+---+ | Given | 05/26/20 | 10 mg | | | | | 17 5:28 | | | | | | PM PDT | | | | +-------+ +-------+---+---+ +---+---+ | | | +---+---+ + +-------+ +------+---+---+ | labetalol (TRANDATE) 5 mg/mL | Given | 05/26/20 | 5 mg | | | | injection 5 mg 5 mg, | | 17 1:48 | | | | | Intravenous, EVERY 5 MIN PRN, For | | PM PDT | | | | | SBP > 180, DBP > 100, Starting | | | | | | | 05/26/17 at 1232, Hold if HR < | | | | | | | 60. Maximum total dose 300mg. | | | | | | | Notify anesthesia if patient | | | | | | | requires more than 50mg., | | | | | | | Recovery/Phase I | | | | | | + +-------+ +------+---+---+ +-------+ +------+---+---+ | Given | 05/26/20 | 5 mg | | | | | 17 1:37 | | | | | | PM PDT | | | | +-------+ +------+---+---+ | Given | 05/26/20 | 5 mg | | | | | 17 1:27 | | | | | | PM PDT | | | | +-------+ +------+---+---+ +---+---+ | | | +---+---+ + +---------+ +---+---+---+ | lactated ringers (LR) infusion | New Bag | 05/26/20 | | | | | at 100 mL/hr, Intravenous, | | 17 11:31 | | | | | CONTINUOUS, Starting 05/26/17 | | AM PDT | | | | | at 0645, Pre-op | | | | | | + +---------+ +---+---+---+ +---------+ +--------+-------+--------+ | New Bag | 05/26/20 | | | | | | 17 7:53 | | | | | | AM PDT | | | | +---------+ +--------+-------+--------+ | New Bag | 05/26/20 | 1,000 | 100 | Right | | | 17 6:58 | mLs | mL/hr | Arm | | | AM PDT | | | | +---------+ +--------+-------+--------+ +---+---+ | | | +---+---+ + +-------+ +-------+---+---+ | leflunomide (ARAVA) tablet 20 | Given | 05/31/20 | 20 mg | | | | mg 20 mg, Oral, DAILY, First | | 17 8:30 | | | | | dose on Thu05/27/17 at 0900, | | AM PDT | | | | | Hazardous: Use appropriate | | | | | | | handling precautions., | | | | | | + +-------+ +-------+---+---+ +-------+ +-------+---+---+ | Given | 05/30/20 | 20 mg | | | | | 17 8:41 | | | | | | AM PDT | | | | +-------+ +-------+---+---+ | Given | 05/29/20 | 20 mg | | | | | 17 8:32 | | | | | | AM PDT | | | | +-------+ +-------+---+---+ +---+---+ | | | +---+---+ + +-------+ +--------+---+---+ | magnesium hydroxide (MILK OF | Given | 05/28/20 | 30 mLs | | | | MAGNESIA) 400 mg/5 mL suspension | | 17 12:38 | | | | | 30 mL 30 mL, Oral, 2 TIMES DAILY | | AM PDT | | | | | PRN, Constipation, Starting Tue | | | | | | | 05/26/17 at 1626, If docusate, | | | | | | | senna, and polyethylene glycol | | | | | | | ineffective x 24 hours or not | | | | | | | ordered, | | | | | | + +-------+ +--------+---+---+ +---+---+ | | | +---+---+ + +-------+ +--------+---+---+ | magnesium oxide (MAG-OX) tablet | Given | 06/06/20 | 400 mg | | | | 400 mg 400 mg, Oral, DAILY, | | 17 8:37 | | | | | First dose (after last | | AM PDT | | | | | modification) on [facility] 05/28/17 at | | | | | | | 0600 | | | | | | + +-------+ +--------+---+---+ +-------+ +--------+---+---+ | Given | 06/05/20 | 400 mg | | | | | 17 9:03 | | | | | | AM PDT | | | | +-------+ +--------+---+---+ | Given | 06/04/20 | 400 mg | | | | | 17 9:57 | | | | | | AM PDT | | | | +-------+ +--------+---+---+ +---+---+ | | | +---+---+ + +---------+ +-----+ +---+ | magnesium sulfate 2 g/50 mL | New Bag | 06/01/20 | 2 g | 25 mL/hr | | | IVPB 2 g 2 g, Intravenous, | | 17 12:59 | | | | | Administer over 120 Minutes, | | AM PDT | | | | | ONCE, 06/01/17 at 0015, For 1 | | | | | | | dose, Infuse over 2 hours., | | | | | | + +---------+ +-----+ +---+ +---+---+ | | | +---+---+ + +---------+ +--------+--------+---+ | methocarbamol (ROBAXIN) 750 mg | New Bag | 05/27/20 | 750 mg | 143.3 | | | in sodium chloride 0.9% 100 mL | | 17 6:07 | | mL/hr | | | IVPB 750 mg, Intravenous, | | AM PDT | | | | | Administer over 45 Minutes, EVERY | | | | | | | 8 HOURS INTERVAL, First dose on | | | | | | | [facility] 05/26/17 at 1345, For 3 doses, | | | | | | | Post-op/Phase II | | | | | | + +---------+ +--------+--------+---+ +---------+ +--------+--------+---+ | New Bag | 05/26/20 | 750 mg | 143.3 | | | | 17 10:16 | | mL/hr | | | | PM PDT | | | | +---------+ +--------+--------+---+ | New Bag | 05/26/20 | 750 mg | 143.3 | | | | 17 3:27 | | mL/hr | | | | PM PDT | | | | +---------+ +--------+--------+---+ +---+---+ | | | +---+---+ + +-------+ +--------+---+---+ | methocarbamol (ROBAXIN) tablet | Given | 05/30/20 | 750 mg | | | | 750 mg 750 mg, Oral, EVERY 8 | | 17 8:41 | | | | | HOURS PRN, Muscle spasms, | | AM PDT | | | | | Starting 05/26/17 at 1626, For | | | | | | | 3 doses | | | | | | + +-------+ +--------+---+---+ +---+---+ | | | +---+---+ + +-------+ +-------+---+---+ | metoclopramide (REGLAN) 5 mg/mL | Given | 05/26/20 | 10 mg | | | | injection 10 mg 10 mg, | | 17 6:29 | | | | | Intravenous, EVERY 6 HOURS PRN, | | PM PDT | | | | | Nausea, Vomiting, Starting Thu | | | | | | | 05/26/17 at 1746, Protect from | | | | | | | light., | | | | | | + +-------+ +-------+---+---+ +---+---+ | | | +---+---+ + +-------+ +--------+---+---+ | metoprolol succinate | Given | 05/29/20 | 100 mg | | | | (TOPROL-XL) ER tablet 100 mg 100 | | 17 6:12 | | | | | mg, Oral, EVERY MORNING, First | | AM PDT | | | | | dose on Thu05/26/17 at 1645 | | | | | | + +-------+ +--------+---+---+ +-------+ +--------+---+---+ | Given | 05/28/20 | 100 mg | | | | | 17 8:30 | | | | | | AM PDT | | | | +-------+ +--------+---+---+ | Given | 05/27/20 | 100 mg | | | | | 17 7:55 | | | | | | AM PDT | | | | +-------+ +--------+---+---+ +---+---+ | | | +---+---+ + +-------+ +-------+---+---+ | metoprolol succinate | Given | 05/26/20 | 50 mg | | | | (TOPROL-XL) ER tablet 50 mg 50 | | 17 7:25 | | | | | mg, Oral, DAILY, First dose on | | AM PDT | | | | | 05/26/17 at 0730, Tablet may | | | | | | | be cut where scored but do not | | | | | | | crush., Pre-op | | | | | | + +-------+ +-------+---+---+ +---+---+ | | | +---+---+ + +-------+ +------+---+---+ | morphine injection 1-2 mg 1-2 | Given | 05/27/20 | 1 mg | | | | mg, Intravenous, EVERY 1 HOUR | | 17 1:11 | | | | | PRN, Pain, Starting Tu05/26/17 | | AM PDT | | | | | at 1626, If oral route not an | | | | | | | option. Slow IV push, not faster | | | | | | | than 2mg/minute. First dose must | | | | | | | be lowest dose, titrate to | | | | | | | effective dose by repeat of | | | | | | | lowest dose every 30 minutes prn | | | | | | | pain, may not exceed maximum dose | | | | | | | ordered per interval. Use | | | | | | | Pasero Sedation Scale., | | | | | | | Post-op/Phase II | | | | | | + +-------+ +------+---+---+ +-------+ +------+---+---+ | Given | 05/26/20 | 1 mg | | | | | 17 6:41 | | | | | | PM PDT | | | | +-------+ +------+---+---+ +---+---+ | | | +---+---+ + +-------+ +--------+---+---+ | OLANZapine zydis (zyPREXA | Given | 05/30/20 | 2.5 mg | | | | ZYDIS) disintegrating tablet 2.5 | | 17 8:11 | | | | | mg 2.5 mg, Oral, ONCE, Sat | | PM PDT | | | | | 05/30/17 at 2100, For 1 dose | | | | | | + +-------+ +--------+---+---+ +---+---+ | | | +---+---+ + +-------+ +------+---+---+ | OLANZapine zydis (zyPREXA | Given | 05/30/20 | 5 mg | | | | ZYDIS) disintegrating tablet 5 mg | | 17 4:34 | | | | | 5 mg, Oral, NIGHTLY, First dose | | PM PDT | | | | | on 05/30/17 at 1645 | | | | | | + +-------+ +------+---+---+ +---+---+ | | | +---+---+ + +-------+ +------+---+---+ | OLANZapine zydis (zyPREXA | Given | 06/05/20 | 5 mg | | | | ZYDIS) disintegrating tablet 5 mg | | 17 9:31 | | | | | 5 mg, Oral, NIGHTLY, First dose | | PM PDT | | | | | on Thu06/02/17 at 2100 | | | | | | + +-------+ +------+---+---+ +-------+ +------+---+---+ | Given | 06/04/20 | 5 mg | | | | | 17 8:02 | | | | | | PM PDT | | | | +-------+ +------+---+---+ | Given | 06/03/20 | 5 mg | | | | | 17 8:46 | | | | | | PM PDT | | | | +-------+ +------+---+---+ +---+---+ | | | +---+---+ + +-------+ +------+---+---+ | ondansetron (ZOFRAN) injection | Given | 05/26/20 | 4 mg | | | | 4 mg 4 mg, Intravenous, ONCE | | 17 12:52 | | | | | PRN, Nausea, Starting Thu05/26/17 | | PM PDT | | | | | at 1201, For 1 dose, | | | | | | | Recovery/Phase I | | | | | | + +-------+ +------+---+---+ +---+---+ | | | +---+---+ + +-------+ +------+---+---+ | ondansetron (ZOFRAN) injection | Given | 05/29/20 | 4 mg | | | | 4 mg 4 mg, Intravenous, EVERY 6 | | 17 12:18 | | | | | HOURS PRN, Nausea, Vomiting, | | PM PDT | | | | | Starting Thu05/26/17 at 1626, | | | | | | | First line agent Use PO option | | | | | | | unless NPO status or unable to | | | | | | | tolerate, | | | | | | + +-------+ +------+---+---+ +-------+ +------+---+---+ | Given | 05/26/20 | 4 mg | | | | | 17 10:48 | | | | | | PM PDT | | | | +-------+ +------+---+---+ +---+---+ | | | +---+---+ + +-------+ +------+---+---+ | polyethylene glycol (MIRALAX) | Given | 06/01/20 | 17 g | | | | powder 17 g 17 g, Oral, DAILY, | | 17 8:58 | | | | | First dose on Thu05/26/17 at | | AM PDT | | | | | 1645, If docusate and senna | | | | | | | ineffective or not ordered, | | | | | | + +-------+ +------+---+---+ +-------+ +------+---+---+ | Given | 05/30/20 | 17 g | | | | | 17 8:41 | | | | | | AM PDT | | | | +-------+ +------+---+---+ +---+---+ | | | +---+---+ + +-------+ +--------+---+---+ | potassium chloride (K-DUR) ER | Given | 05/29/20 | 20 mEq | | | | tablet 20 mEq 20 mEq, Oral, 2 | | 17 8:30 | | | | | TIMES DAILY, First dose on Thu | | AM PDT | | | | | 05/27/17 at 2100 | | | | | | + +-------+ +--------+---+---+ +-------+ +--------+---+---+ | Given | 05/28/20 | 20 mEq | | | | | 17 8:01 | | | | | | PM PDT | | | | +-------+ +--------+---+---+ | Given | 05/28/20 | 20 mEq | | | | | 17 8:31 | | | | | | AM PDT | | | | +-------+ +--------+---+---+ +---+---+ | | | +---+---+ + +-------+ +--------+---+---+ | potassium chloride (K-DUR) ER | Given | 06/01/20 | 20 mEq | | | | tablet 20 mEq 20 mEq, Oral, 2 | | 17 8:57 | | | | | TIMES DAILY AFTER MEALS, First | | AM PDT | | | | | dose on Thu05/29/17 at 1215, OK | | | | | | | to substitute liquid formulation | | | | | | | if better tolerated., | | | | | | + +-------+ +--------+---+---+ +-------+ +--------+---+---+ | Given | 05/31/20 | 20 mEq | | | | | 17 6:48 | | | | | | PM PDT | | | | +-------+ +--------+---+---+ | Given | 05/31/20 | 20 mEq | | | | | 17 8:30 | | | | | | AM PDT | | | | +-------+ +--------+---+---+ +---+---+ | | | +---+---+ + +-------+ +--------+---+---+ | potassium chloride (K-DUR) ER | Given | 06/01/20 | 40 mEq | | | | tablet 40 mEq 40 mEq, Oral, | | 17 12:59 | | | | | ONCE, 06/01/17 at 0015, For 1 | | AM PDT | | | | | dose, OK to substitute liquid | | | | | | | formulation if better tolerated., | | | | | | | | | | | | | + +-------+ +--------+---+---+ +---+---+ | | | +---+---+ + +-------+ +--------+---+---+ | potassium chloride 20 mEq/15 mL | Given | 05/28/20 | 40 mEq | | | | liquid 40 mEq 40 mEq, Oral, | | 17 5:29 | | | | | ONCE, [facility] 05/28/17 at 0530, For 1 | | AM PDT | | | | | dose, Give with 4 oz. of water or | | | | | | | other liquid., | | | | | | + +-------+ +--------+---+---+ +---+---+ | | | +---+---+ + +-------+ +-------+---+---+ | predniSONE (DELTASONE) tablet | Given | 06/06/20 | 10 mg | | | | 10 mg 10 mg, Oral, DAILY, First | | 17 8:38 | | | | | dose (after last modification) on | | AM PDT | | | | | [facility] 05/29/17 at 1215 | | | | | | + +-------+ +-------+---+---+ +-------+ +-------+---+---+ | Given | 06/05/20 | 10 mg | | | | | 17 9:03 | | | | | | AM PDT | | | | +-------+ +-------+---+---+ | Given | 06/04/20 | 10 mg | | | | | 17 9:57 | | | | | | AM PDT | | | | +-------+ +-------+---+---+ +---+---+ | | | +---+---+ + +-------+ +------+---+---+ | predniSONE (DELTASONE) tablet 5 | Given | 05/29/20 | 5 mg | | | | mg 5 mg, Oral, DAILY, First | | 17 8:30 | | | | | dose on Thu05/27/17 at 0900 | | AM PDT | | | | + +-------+ +------+---+---+ +-------+ +------+---+---+ | Given | 05/28/20 | 5 mg | | | | | 17 8:31 | | | | | | AM PDT | | | | +-------+ +------+---+---+ | Given | 05/27/20 | 5 mg | | | | | 17 7:55 | | | | | | AM PDT | | | | +-------+ +------+---+---+ +---+---+ | | | +---+---+ + +-------+ +-------+---+---+ | prochlorperazine (COMPAZINE) | Given | 05/27/20 | 10 mg | | | | injection 10 mg 10 mg, | | 17 6:07 | | | | | Intravenous, EVERY 6 HOURS PRN, | | AM PDT | | | | | Nausea, Vomiting, Starting Tue | | | | | | | 05/26/17 at 1746 | | | | | | + +-------+ +-------+---+---+ + +---+ | | | + +---+ | promethazine (PHENERGAN) (IM | | | ONLY) injection 6.25 mg 6.25 mg, | | | Intramuscular, EVERY 6 HOURS | | | PRN, Nausea, Vomiting, Starting | | | 05/26/17 at 2146, Vesicant. | | | Give by deep IM injection into a | | | large muscle., | | + +---+ | | | + +---+ + +-------+ +---------+---+---+ | promethazine (PHENERGAN) (IV | Given | 05/27/20 | 6.25 mg | | | | ONLY) injection 6.25 mg 6.25 mg, | | 17 7:55 | | | | | Intravenous, EVERY 6 HOURS PRN, | | AM PDT | | | | | Nausea, Vomiting, Starting Tue | | | | | | | 05/26/17 at 2146, Nayeli. When | | | | | | | ordered IV push: Dilute to | | | | | | | 10-20mL with NS. Give over 2-3 | | | | | | | minutes into large vein. Do not | | | | | | | give in hand/wrist or foot/ankle | | | | | | | vein. Max dose 12.5mg if giving | | | | | | | peripherally., | | | | | | + +-------+ +---------+---+---+ + +---+ | | | + +---+ | promethazine (PHENERGAN) | | | suppository 12.5-25 mg 12.5-25 | | | mg, Rectal, EVERY 6 HOURS PRN, | | | Nausea, Vomiting, Starting Tue | | | 05/26/17 at 2146, Keep in | | | refrigerator., | | + +---+ | | | + +---+ | promethazine (PHENERGAN) tablet | | | 12.5-25 mg 12.5-25 mg, Oral, | | | EVERY 6 HOURS PRN, Nausea, | | | Vomiting, Starting 05/26/17 at | | | 2146 | | + +---+ | | | + +---+ | saliva substitute (BIOTENE | | | ORALBALANCE DRY MOUTH) gel GEL | | | Mouth/Throat, EVERY 30 MIN PRN, | | | Discomfort, Dry mouth, Starting | | | 06/03/17 at 1554 | | + +---+ | | | + +---+ + +---------+ +---------+---+ + | scopolamine (TRANSDERM-SCOP) 1 | Patch | 05/26/20 | 1 patch | | Ear-Behi | | mg/3 days 1 patch 1 patch, | Applied | 17 7:28 | | | nd Left | | Transdermal, ONCE, 05/26/17 at | | AM PDT | | | | | 0645, For 1 dose, Apply to | | | | | | | mastoid process, Pre-op | | | | | | + +---------+ +---------+---+ + +---+---+ | | | +---+---+ + +-------+ +--------+---+---+ | senna (SENOKOT) tablet 8.6 mg | Given | 05/28/20 | 8.6 mg | | | | 8.6 mg, Oral, 2 TIMES DAILY PRN, | | 17 12:38 | | | | | Constipation, Starting Thu | | AM PDT | | | | | 05/26/17 at 1626, If docusate | | | | | | | ineffective or not ordered, | | | | | | + +-------+ +--------+---+---+ +---+---+ | | | +---+---+ + +-------+ +--------+---+---+ | sertraline (ZOLOFT) tablet 100 | Given | 06/05/20 | 100 mg | | | | mg 100 mg, Oral, NIGHTLY, First | | 17 9:31 | | | | | dose on Thu05/26/17 at 2100 | | PM PDT | | | | + +-------+ +--------+---+---+ +-------+ +--------+---+---+ | Given | 06/04/20 | 100 mg | | | | | 17 8:01 | | | | | | PM PDT | | | | +-------+ +--------+---+---+ | Given | 06/03/20 | 100 mg | | | | | 17 8:46 | | | | | | PM PDT | | | | +-------+ +--------+---+---+ +---+---+ | | | +---+---+ + +---------+ +---+-------+---+ | sodium chloride 0.9% (NS) | New Bag | 05/28/20 | | 100 | | | infusion at 100 mL/hr, | | 17 3:23 | | mL/hr | | | Intravenous, CONTINUOUS, Starting | | PM PDT | | | | | Thu05/26/17 at 1645 | | | | | | + +---------+ +---+-------+---+ +---------+ +--------+-------+---+ | New Bag | 05/28/20 | 1,000 | 100 | | | | 17 4:51 | mLs | mL/hr | | | | AM PDT | | | | +---------+ +--------+-------+---+ | New Bag | 05/27/20 | 1,000 | 100 | | | | 17 5:55 | mLs | mL/hr | | | | PM PDT | | | | +---------+ +--------+-------+---+ +---+---+ | | | +---+---+ + +-------+ +--------+---+---+ | traMADol (ULTRAM) tablet 100 mg | Given | 06/06/20 | 100 mg | | | | 100 mg, Oral, EVERY 6 HOURS | | 17 6:56 | | | | | PRN, Pain, Starting 05/30/17 | | AM PDT | | | | | at 0822, Max 400mg/day, | | | | | | + +-------+ +--------+---+---+ +-------+ +--------+---+---+ | Given | 06/05/20 | 100 mg | | | | | 17 9:31 | | | | | | PM PDT | | | | +-------+ +--------+---+---+ | Given | 06/05/20 | 100 mg | | | | | 17 3:26 | | | | | | PM PDT | | | | +-------+ +--------+---+---+ +---+---+ | | | +---+---+ + +-------+ +-------+---+---+ | traMADol (ULTRAM) tablet 50 mg | Given | 05/30/20 | 50 mg | | | | 50 mg, Oral, EVERY 6 HOURS PRN, | | 17 1:41 | | | | | Pain, Starting 05/27/17 at | | AM PDT | | | | | 1612 | | | | | | + +-------+ +-------+---+---+ +-------+ +-------+---+---+ | Given | 05/29/20 | 50 mg | | | | | 17 4:08 | | | | | | PM PDT | | | | +-------+ +-------+---+---+ | Given | 05/29/20 | 50 mg | | | | | 17 8:27 | | | | | | AM PDT | | | | +-------+ +-------+---+---+ +---+---+ | | | +---+---+ documented in this encounter
--- OUTSIDE RECORDS SUMMARY | ~2020-04-03 | XMS | Encounter Summary ---
Demographics + + + | Address | [address] | | | [place] [address] | + + + | Home Phone | | + + + | Preferred Language | Unknown | + + + | Marital Status | | + + + | Zoroastrianism Affiliation | 1041 | + + + | Race | Unknown | + + + | Ethnic Group | Unknown | + + + Author + + + | Author | [facility] | | | and [place] | + + + | Organization | [facility] | | | and [place] | + + + | Address | Unknown | + + + | Phone | Unavailable | + + + Support + + + + + | Name | Relationship | Address | Phone | + + + + + | Juanita Espinal | ECON | [address] | | | | | [place] | | | | | [address] | | + + + + + Care Team Providers + +------+ + | Care Lithographed Plate Inspector Name | Role | Phone | + [...] + + + + | 08/13/ | Telephone | [facility] [place] | Jeffry France | Other | | 2016 | | NEUROSURGERY [address] | [address] | | | | | [address] | [address] | | | | | [place], [place] | [place] [address] | | | | | [address] | [phone] | | | | | [phone] | | | +--------+ + + + [...]
--- OUTSIDE RECORDS SUMMARY | ~2020-04-03 | XMS | Encounter Summary ---
Demographics + + + | Address | [address] | | | [place] [address] | + + + | Home Phone | | + + + | Preferred Language | Unknown | + + + | Marital Status | | + + + | Christian Affiliation | 1041 | + + + | Race | Unknown | + + + | Ethnic Group | Unknown | + + + Author + + + | Author | [facility] | | | and [place] | + + + | Organization | [facility] | | | and [place] | + + + | Address | Unknown | + + + | Phone | Unavailable | + + + Support + + + + + | Name | Relationship | Address | Phone | + + + + + | Juanita Espinal | ECON | [address] | | | | | [place] | | | | | [address] | | + + + + + Care Team Providers + +------+ + | Care Quality Assurance Inspector Name | Role | Phone | + +------+ + | Hemanth Lima PCP | | | MD | | | + +------+ + Encounter Details +--------+ + + + + | Date | Type | Department | Care Team | Description | +--------+ + + + + | 05/01/ | Preadmit | [facility] | Edin Lynn MD | Preoperative | | 2017 | Visit | [facility] | [address] | clearance (Primary | | | | CLINIC [address] | [place] [address] | Dx); Lumbar | | | | [place] | [phone] | radiculopathy; | | | | [address] | | Spondylolisthesis of | | | | | | lumbar region; | | | | | | Lumbar facet | | | | | | arthropathy; | | | | | | Foraminal stenosis | | | | | | of lumbar region; | | | | | | Other [...] + | CULTURE, MRSA | Routin | 05/01/2017 | Preoperative | Results for this | | | e | 1:16 PM | clearance | procedure are in the | | | | PDT | | results section. | + +--------+ + + + | CBC WITH | Routin | 05/01/2017 | Lumbar | Results for this | | DIFFERENTIAL | e | 1:16 PM | radiculopathy | procedure are in [...] + | BASIC METABOLIC | Routin | 05/01/2017 | Lumbar | Results for this | | PANEL | e | 1:16 PM | radiculopathy | procedure are in [...] | ECG 12 LEAD | Routin | 05/01/2017 | Lumbar | Results for this | | | e | 1:13 PM | radiculopathy | procedure are in [...] + + documented in this encounter Results CBC with Differential (05/01/2017 1:16 PM PDT) + +-------+ + + + | Component | Value | Ref Range | Performed | Pathologist | | | | | At | Signature | + +-------+ + + + | WBC | 8.3 | 4.0 - 11.0 K/uL | [facility] | [facility] | | | | | | [facility] | | | | | | [facility] - | | | | | | LABORATORY | | + +-------+ + + + | RBC | 4.26 | 3.70 - 5.20 | [facility] | | | | | M/uL | [facility] | | | | | | [facility] | | | | | | C[facility] - | | | | | | LABORATORY | | + +-------+ + + + | Hemoglobin | 13.1 | 11.5 - 16.0 | [facility] | | | | | g/dL | [facility] | | | | | | [facility] | | | | | | CENTER - | | | | | | LABORATORY | | + +-------+ + + + | Hematocrit | 39.1 | 34.0 - 47.0 % | [facility] | | | | | [facility] | | | | | | [facility] | | | | | | C[facility] - | | | | | | LABORATORY | | + +-------+ + + + | MCV | 91.7 | 83.0 - 101.0 fL | [facility] | | | | | [facility] | | | | | | [facility] | | | | | | C[facility] - | | | | | | LABORATORY | | + +-------+ + + + | MCH | 30.8 | 28.0 - 35.0 pg | [facility] | | | | | [facility] | | | | | | [facility] | | | | | | C[facility] - | | | | | | LABORATORY | | + +-------+ + + + | MCHC | 33.6 | 32.0 - 36.0 | [facility] | | | | | g/dL | [facility] | | | | | | [facility] | | | | | | CENTER - | | | | | | LABORATORY | | + +-------+ + + + | RDW-CV | 14.0 | <15.0 % | [facility] | | | | | [facility] | | | | | | [facility] | | | | | | CENTER - | | | | | | LABORATORY | | + +-------+ + + + | Platelet | 209 | 140 - 440 K/uL | [facility] | | | Count | | | [facility] | | | | | | [facility]ICAL | | | | | | CENTER - | | | | | | LABORATORY | | + +-------+ + + + | MPV | 7.9 | fL | [facility] | | | | | | [facility] | | | | | | [facility] | | | | | | CENTER - | | | | | | LABORATORY | | + +-------+ + + + | % | 55.6 | 45.0 - 82.0 % | [facility] | | | Neutrophils | | | [facility] | | | | | | MEDICAL | | | | | | CENTER - | | | | | | LABORATORY | | + +-------+ + + + | % | 28.5 | 20.0 - 45.0 % | [facility] | | | Lymphocytes | | | [facility] | | | | | | MEDICAL | | | | | | CENTER - | | | | | | LABORATORY | | + +-------+ + + + | % Monocytes | 12.0 | 4.0 - 12.0 % | [facility] | | | | | | [facility] | | | | | | [facility]ICAL | | | | | | CENTER - | | | | | | LABORATORY | | + +-------+ + + + | % | 3.3 | 0.0 - 5.0 % | [facility] [...] | + +-------+ + + + | Absolute | 4.60 | 1.80 - 8.50 | [facility] | | | Neutrophils | | K/uL | [facility] | | | | | | MEDICAL | | | | | | CENTER - | | | | | | LABORATORY | | + +-------+ + + + | Absolute | 2.40 | 0.60 - 3.20 | [facility] | | | Lymphocytes | | K/uL | [facility] | | | | | | MEDICAL | | | | | | CENTER - | | | | | | LABORATORY | | + +-------+ + + + | Absolute | 1.00 | 0.00 - 1.00 | [facility] | | | Monocytes | | K/uL | [facility] | | | | | | MEDICAL | | | | | | CENTER - | | | | | | LABORATORY | | + +-------+ + + + | Absolute | 0.30 | 0.00 - 0.40 | [facility] | | | Eosinophils | | K/uL | [facility] | | | | | | MEDICAL | | | | | | CENTER - | | | | | | LABORATORY | | + +-------+ + + + | Absolute | 0.10 | 0.00 - 0.10 | [facility] | [...] + | [facility] | [address] | [place] | [phone] | | [facility] | | [address] | | | - LABORATORY | | | | + + + + + Basic Metabolic Panel (05/01/2017 1:16 PM PDT) + + + + + + | Component | Value | Ref Range | Performed | Pathologist | | | | | At | Signature | + + + + + + | Na | 140 | 136 - 149 | [facility] | [...] + + + + | Cl | 105 | 98 - 109 mmol/L | [facility] [...] + + + | Anion Gap | 6 | 3 - 16 mmol/L | [facility] | | | | | | [facility] | | | | | | MEDICAL | | | | | | CENTER - | | | | | | LABORATORY | | + + + + + + | Glucose | 88 | 70 - 109 mg/dL | [facility] [...] mL/min/1.73m2 | [facility] | | | [facility] | RATE,ESTIMATED | | MEDICAL | | | | mL/min/1.53e9Ctcx than | | CENTER - | | [...] + + + + | Calcium | 9.3 | 8.3 - 10.5 | [facility] | | | | | mg/dL | [facility] | | | | | | MEDICAL | | | | | | CENTER - | | | | | | LABORATORY | | + + + + + + | BUN/Creatin | 29.8 | | [facility] | | | ine [...] [address] | [place] | [phone] | | [facility] | | [address] | | | - LABORATORY | | | | + + + + + Culture, MRSA (05/01/2017 1:16 PM PDT) + + + + + + | Component | Value | Ref Range | Performed | Pathologist | | | | | At | Signature | + + + + + + | Culture | Negative for MRSA by | | [facility] | | | | chromogenic agar method | | [facility] | | | | | [facility] | | | | | | CENTER - | | | | | | LABORATORY | | + + + + + + | Culture | 1+ Coagulase positive | | [facility] | | | | StaphylococcusComment: | | [facility] | | | | Not MRSA | | MEDICAL | | | | [...] + | [facility] | [address] | [place] | [phone] | | [facility] | | [address] | | | - LABORATORY | | | | + + + + + ECG 12 lead (05/01/2017 1:13 PM PDT) + + + + + + | Component | Value | Ref Range | Performed | Pathologist | | | | | At | Signature | + + + + + + | VENTRICULAR | 51 | BPM | [facility] | | | RATE EKG | | | | | + + + + + + | ATRIAL RATE | 51 | BPM | [facility] | | + + + + + + | P-R | 134 | ms | [facility] | | | INTERVAL | | | | | + + + + + + | QRS | 76 | ms | [facility] | | | DURATION | | | | | + + + + + + | Q-T | 430 | ms | [facility] | | | INTERVAL | | | | | + + + + + + | Q-T | 396 | ms | [facility] | | | INTERVAL | | | | | | (CORRECTED) | | | | | + + + + + + | P WAVE AXIS | 71 | degrees | [facility] | | + + + + + + | QRS AXIS | 30 | degrees | [facility] | | + + + + + + | T AXIS | 65 | degrees | [facility] | | + + + + + + | INTERPRETAT | Sinus | | [facility] | | | ION TEXT | bradycardiaOtherwise | | | | | | normal ECGNo previous | | | | | | ECGs availableConfirmed | | | | | | by TRACIE RAMOS MD | | | | | | ([id number]) on 05/04/2017 | | | | | | 6:58:31 AM | | | | + + [...] + | Diagnosis | + + | Preoperative clearance - Primary Preoperative examination, unspecified | + + | Lumbar radiculopathy Thoracic [...]
--- OUTSIDE RECORDS SUMMARY | ~2020-04-03 | XMS | Encounter Summary ---
Demographics + + + | Address | [address] | | | [place] [address] | + + + | Home Phone | | + + + | Preferred Language | Unknown | + + + | Marital Status | | + + + | Hinduism Affiliation | 1041 | + + + | Race | Unknown | + + + | Ethnic Group | Unknown | + + + Author + + + | Author | [facility] | | | and [place] | + + + | Organization | [facility] | | | and [place] | + + + | Address | Unknown | + + + | Phone | Unavailable | + + + Support + + + + + | Name | Relationship | Address | Phone | + + + + + | Juanita Espinal | ECON | [address] | | | | | [place] | | | | | [address] | | + + + + + Care Team Providers + +------+ + | Care Production Officer Name | Role | Phone | + +------+ + | Hemanth Lima PCP | | | MD | | | + +------+ + Encounter Details +--------+ + + + + | Date | Type | Department | Care Team | Description | +--------+ + + + + | 02/03/ | Orders Only | [facility] [place] | Edin Lynn MD | Lumbar radiculopathy | | 2017 | | NEUROSURGERY [address] | [address] | (Primary Dx); | | | | [address] | [place] [address] | Spondylolisthesis of | | | | [place], [place] | [phone] | lumbar region; | | | | [address] | | Lumbar facet | | | | [phone] | | arthropathy; | | | | [...] | | | | | stenosis | +--------+ + + + [...]
--- OUTSIDE RECORDS SUMMARY | ~2020-04-03 | XMS | Encounter Summary ---
Demographics + + + | Address | [address] | | | [place] [address] | + + + | Home Phone | | + + + | Preferred Language | Unknown | + + + | Marital Status | | + + + | Church Affiliation | 1041 | + + + | Race | Unknown | + + + | Ethnic Group | Unknown | + + + Author + + + | Author | [facility] | | | and [place] | + + + | Organization | [facility] | | | and [place] | + + + | Address | Unknown | + + + | Phone | Unavailable | + + + Support + + + + + | Name | Relationship | Address | Phone | + + + + + | Juanita Espinal | ECON | [address] | | | | | [place], [place] | | | | | [address] | | + + + + + Care Team Providers + +------+ + | Care Network Management Specialist Name | Role | Phone | + +------+ + | Hemanth Lima | PCP | | | MD | | | + +------+ + Encounter Details +--------+ + + + + | Date | Type | Department | Care Team | Description | +--------+ + + + + | 08/25/ | Imaging | [facility] | Provider, | | | 2017 | Exam | [facility] | [address] | | | | | IMAGING [address] | [address] | | | | | [address] | [place] [address] | | | | | [place] [address] | | | | | | [phone] | | | +--------+ + + + [...] LUMBAR SPINE 2 OR | Routin | 08/24/2017 | | Results for this | | 3 VW | e | 1:25 PM | | procedure are in the | | | | PDT | | results section. | + +--------+ + + + documented in this encounter Results XR Lumbar Spine 2 or 3 Vw (08/24/2017 1:25 PM PDT) + + | Specimen | + + | | + + + + + | Narrative | Performed At | + + + | External films | [facility] | | for comparison only - no result from [place]. | | + + + + +---------+ + + | Performing | Address | City/State/Zipcode | Phone Number | | Organization | | | | + +---------+ + + | [facility] | | | | + +---------+ + + documented in this encounter Visit Diagnoses Not on filedocumented in this encounter"
--- OUTSIDE RECORDS SUMMARY | ~2020-04-03 | XMS | Encounter Summary ---
Demographics + + + | Address | [address] | | | [place] [address] | + + + | Home Phone | | + + + | Preferred Language | Unknown | + + + | Marital Status | | + + + | Christianity Affiliation | 1041 | + + + | Race | Unknown | + + + | Ethnic Group | Unknown | + + + Author + + + | Author | [facility] | | | and [place] | + + + | Organization | [facility] | | | and [place] | + + + | Address | Unknown | + + + | Phone | Unavailable | + + + Support + + + + + | Name | Relationship | Address | Phone | + + + + + | Juanita Espinal | ECON | [address] | | | | | [place] | | | | | [address] | | + + + + + Care Team Providers + +------+ + | Care Assembler Insulator Name | Role | Phone | + [...] Telephone | [facility] [place] | Edin Lnyn MD | Therapy | | 2016 | | NEUROSURGERY [address] | [address] | | | | | [address] | [place] [address] | | | | | [place] | [phone] | | | | | [address] | | | | | | [phone] | | | +--------+ + + + [...]
--- OUTSIDE RECORDS SUMMARY | ~2020-04-03 | XMS | Encounter Summary ---
Demographics + + + | Address | [address] | | | [place] [address] | + + + | Home Phone | | + + + | Preferred Language | Unknown | + + + | Marital Status | | + + + | Advent Affiliation | 1041 | + + + | Race | Unknown | + + + | Ethnic Group | Unknown | + + + Author + + + | Author | [facility] | | | and [place] | + + + | Organization | [facility] | | | and [place] | + + + | Address | Unknown | + + + | Phone | Unavailable | + + + Support + + + + + | Name | Relationship | Address | Phone | + + + + + | Juanita Espinal | ECON | [address] | | | | | [place] | | | | | [address] | | + + + + + Care Team Providers + +------+ + | Care Marine Technician Name | Role | Phone | [...] | | | | CLINIC [address] | [place] [address] | Dx); Lumbar | | | | [place] | [phone] | radiculopathy; | | | | [address] | | Spondylolisthesis of | | | [...] + | [facility] | [address] | [place] | [phone] | | [facility] | | [address] | | | - LABORATORY | | [...] mL/min/1.73m2 | [facility] | | | [facility] | RATE,ESTIMATED | | MEDICAL | | | | mL/min/1.96i6Cokq than | | CENTER - | | [...] [address] | [place] | [phone] | | [facility] | | [address] | | | - LABORATORY | | [...] + | [facility] | [address] | [place] | [phone] | | [facility] | | [address] | | | - LABORATORY | | [...] MD | | | | | | ([id number]) on 05/04/2017 | | | | | [...]
--- OUTSIDE RECORDS SUMMARY | ~2020-04-03 | XMS | Encounter Summary ---
Demographics + + + | Address | [address] | | | [place] [address] | + + + | Home Phone | | + + + | Preferred Language | Unknown | + + + | Marital Status | | + + + | Samaritan Affiliation | 1041 | + + + | Race | Unknown | + + + | Ethnic Group | Unknown | + + + Author + + + | Author | [facility] | | | and [place] | + + + | Organization | [facility] | | | and [place] | + + + | Address | Unknown | + + + | Phone | Unavailable | + + + Support + + + + + | Name | Relationship | Address | Phone | + + + + + | Juanita Espinal | ECON | [address] | | | | | [place] | | | | | [address] | | + + + + + Care Team Providers + +------+ + | Care Lace Stripper Name | Role | Phone | + +------+ + | Hemanth Lima PCP | | | MD | | | + +------+ + Reason for Visit +---------+ + | Reason | Comments | +---------+ + | Post Op | 4w PO | +---------+ + Encounter Details +--------+---------+ + + + | Date | Type | Department | Care Team | Description | +--------+---------+ + + + | 06/29/ | Office | [facility] | [place] | S/P lumbar fusion | | 2017 | Visit | NEUROSURGERY [address] | [address] | (Primary Dx); | | | | [address] | [address] | Spondylolisthesis of | | | | [place], [place] | [place] [address] | lumbar region; | | | | [address] | [phone] | Lumbar facet | | | | [phone] | | arthropathy; | | | | | | Foraminal stenosis | | | | | | of lumbar region | +--------+---------+ + + + Social History [...] + + + | Blood Pressure | 150/70 | 06/29/2017 9:28 AM | | | | | PDT | | + + + + + | Pulse | 55 | 06/29/2017 9:28 AM | | | | | PDT | | + + + + + | Temperature | - | - | | + + + + + | Respiratory Rate | 16 | 06/29/2017 9:28 AM | | | | | PDT | | + + + + + | Oxygen Saturation | - | - | | + + + + + | Inhaled Oxygen | - | - | | | Concentration | | | | + + + + + | Weight | 69.4 kg (153 lb) | 06/29/2017 9:28 AM | | | | | PDT | | + + + + + | Height | 165.1 cm (5' 5") | 06/29/2017 9:28 AM | | | | | PDT | | + + + + + | Body Mass Index | 25.46 | 06/29/2017 9:28 AM | | | | | PDT [...] of this encounter Patient Instructions Patient Instructions Sasha Lopez, Electronic Train Control Technician - 06/29/2017 9:00 AM PDTI would li ke you to continue with using your lumbar brace at all times for the next 4 weeks. After th at you may remove it at night while you are sleeping. Please continue to use it at all othe r times until you are seen in the office. documented in this encounter Progress Notes Jeffry France PA-C - 06/29/2017 9:00 AM PDTFormatting of this note might be differ ent from the original. Jeffry France PA-C [address] [facility], [address] [place] [address] FAX: NEUROSURGERY FOLLOW-UP CHIEF COMPLAINT: Chief Complaint Patient presents with Post Op 4w PO HISTORY OF PRESENT ILLNESS: The patient is a 72 y.o. female that had a L2-3, L3-4, L4-5 La teral Anterior Interbody Fusion; L5-S1 Transforaminal Lumbar Interbody Fusion; Posterior Fus ion @ L2-3, L3-4, L4-5, L5-S1 for back and bilateral leg symptoms for around 4 weeks ago. S he returns and overall is doing well. The patient complains of leg weakness, burning, and t ingling. The patient has not been walking as much as directed. She is still taking pain m edications at this point. The patient has had no issues with her surgical site. Patient's d ariane states the patient has fallen 17 times since having surgery they believe this is due to leg weakness. She is currently doing outpatient aquatic therapy for strengthening. The p atient states she continuous to recover from surgery and if it wasn't for the leg weakness s he would feel completly recovered. CURRENT MEDICATIONS: Current Outpatient Prescriptions Medication Sig Dispense Refill amiodarone (PACERONE) 200 mg tablet Take 1 tablet by mouth 2 times daily. 60 tablet 0 apixaban (ELIQUIS) 5 mg tablet Take 1 tablet by mouth 2 times daily. 60 tablet 0 dilTIAZem (CARDIZEM CD) 120 mg 24 hr capsule Take 1 capsule by mouth Daily. 30 capsule 0 lactulose 10 g/15 mL solution Take 30 mLs by mouth Daily as needed. 240 mL 2 leflunomide (ARAVA) 20 mg tablet Take 20 mg by mouth Daily. Magnesium 400 MG CAPS Take 1 capsule [...] patient reports that she quit smoking about 7 months ago. Her smoking use included Cig arettes. She has a 10.00 pack-year smoking history. She has never used smokeless tobacco. irvin reports that she does not drink alcohol or use drugs. INTERIM PHYSICAL EXAMINATION: Blood pressure 150/70, pulse 55, resp. rate 16, height 1.651 m (5' 5"), weight 69.4 kg (153 lb), not currently . Body mass index is 25.46 kg/m. GENERAL: Dorothea Calvo is in no acute distress with unlabored respirations. SPINE: The patient s incisions are healing well without drainage, significant erythema, o r discharge. EXTREMITIES: No lower extremity edema. NEUROLOGICAL EXAMINATION: MENTAL STATUS: The patient is awake, alert, and oriented. She follows simple and complex commands MOTOR EXAM: Motor strength is 4 hip flexion, 4+ dorsiflexion on the left. This is improved when compared to the preoperative exam. SENSORY EXAM: The sensory examination is improved when compared to the preoperative exam. REVIEW OF SYSTEMS GENERALLY: No fever, no [...] present illness. In addition, the patient has numbness and pain of legs, awake with numbness and p ain, weakness, migraine. PSYCHIATRIC: No depression, no sleep disorders, no [...] RHEUMATOLOGIC: No joint arthritis, no rheumatoid arthritis. RADIOGRAPHIC REVIEW: The patient s x-rays show stable instrumentation and alignment and were reviewed with the patient today. There have been no interval changes since the immediate postoperative films . Complete fusion has not yet occurred, but this is normal and would not be expected at thi s time. ASSESSMENT: Encounter Diagnoses Name Primary? S/P lumbar fusion Yes Spondylolisthesis of lumbar region Lumbar facet arthropathy Foraminal stenosis of lumbar region Past Medical History: Diagnosis Date Acute pansinusitis Atrial fibrillation ([facility]) 08-18-2016 Atypical chest pain Bilateral leg pain Contusion of knee with skin surface intact Right Anterior COPD (chronic obstructive pulmonary disease) ([facility]) Hyperlipoproteinemia type Li-a Impacted cerumen of right ear Low back pain Lumbar foraminal stenosis 08/13/2016 Lumbar herniated disc L1/T2 Left Lumbar neuritis L3-L4, L4-L5, L5/S1 Lumbar spondylosis Lumbar stenosis Moderate major depression, single episode ([facility]) Neoplasm of uncertain behavior of skin PONV (postoperative nausea and vomiting) projectile vomitting waking up after surgery Primary localized osteoarthritis of left hip Rheumatoid arthritis involving multiple sites ([facility]) Sacroiliac pain Spinal stenosis, lumbar Lumbar canal with neurogenic claudication Spondylolisthesis of lumbar region L3/L4, L4/L5 TB (tuberculosis) Thoracic neuritis T1-T2 PLAN: Overall, the patient is doing fairly well. The patient can see some improvements but ayesha nues to recover from recent surgery. I increased the patient s activities now allowing 10 lbs. They should continue regular e xercise and strengthening with the hope that they can avoid additional surgery. We discussed that we can provide pain medications for up to 90 days after their surgical da te. We discussed the need to continue tapering pain medication. If they need longer term p ain medication, they should begin working on either pain management or with the primary care provider. The patient is to continue wearing her back brace for another month, after that month she c an stop wearing her brace at bedtime. I am hoping to see improvement over the coming weeks to months and plan to continue to foll ow this patient. The patient will follow-up in clinic in around 8 weeks for re-evaluation. ELECTRONICALLY SIGNED BY: Jeffry France PA-C, 06/29/2017 10:40 I, Jeffry France PA-C, personally performed the services described in this documentation , as scribed by Sasha Lopez CMA in my presence, and it is both accurate and complete. Jeffry France PA-C 06/29/2017 documented in this encounter Plan of Treatment Not on filedocumented as of this encounter Procedures + +--------+ + + + | Procedure Name | Priori | Date/Time | Associated Diagnosis | Comments | | | ty | | | | + +--------+ + + + | IMAGING REPORT - | | 06/23/2017 | | Results for this | | EXTERNAL SCAN | | 12:00 AM | | procedure are in the | | | | PDT | | results section. | + +--------+ + + + documented in this encounter Results IMAGING REPORT - EXTERNAL SCAN (06/23/2017 12:00 AM PDT) + + + | [...] | | neurogenic claudication | + + documented in this encounter
--- OUTSIDE RECORDS SUMMARY | ~2020-04-03 | XMS | Encounter Summary ---
Demographics + + + | Address | [address] | | | [place] [address] | + + + | Home Phone | | + + + | Preferred Language | Unknown | + + + | Marital Status | | + + + | Denominational Affiliation | 1041 | + + + | Race | Unknown | + + + | Ethnic Group | Unknown | + + + Author + + + | Author | [facility] | | | and [place] | + + + | Organization | [facility] | | | and [place] | + + + | Address | Unknown | + + + | Phone | Unavailable | + + + Support + + + + + | Name | Relationship | Address | Phone | + + + + + | Juanita Espinal | ECON | [address] | | | | | [place] | | | | | [address] | | + + + + + Care Team Providers + +------+ + | Care Weathercaster Name | Role | Phone | + +------+ + | Hemanth Lima PCP | | | MD | | | + +------+ + Encounter Details +--------+---------+ + + + | Date | Type | Department | Care Team | Description | +--------+---------+ + + + | 07/23/ | Surgery | [facility] | Jaswant Dolan, | [facility] Left 2nd | | 2017 | | MED CTR OR INTRA OP | DPM [address] | Metatarsal Fracture | | | | [address] | [place], [place] | | | | | [place], [place] | [address] | | | | | [address] | [phone] | | | | | [phone] | | | +--------+---------+ + + + [...] You can't be awakened Date Last Reviewed: 09/02/[id number] [employer]. [address] [place] [address]. All righ ts reserved. This information is [...] tablets by | 120 | 1 | 06/29/ | | | 50 mg | mouth [...] | | | | M/uL | [facility] | | | | | | MEDICAL | | | | | | CENTER - | | | | | | LABORATORY | | + + + + + + | Hemoglobin | 11.4 (L) | 11.5 - 16.0 | [facility] | | | | | g/dL | [facility] | | | | [...] | | | | | g/dL | [facility] | | | | | [...] [address] | [place] | [phone] | | [facility] | | [address] | | | - LABORATORY | | [...] (H) | 70 - 109 mg/dL | [facility] | | | | | | [facility] | | | | | | MEDICAL | | | | | | CENTER - | | | | | | LABORATORY | | + + + + + + | BUN | 9 | 7 - 18 mg/dL | [facility] | | | | | | [facility] | | | | | | MEDICAL | | | | | | CENTER - | | | | | | LABORATORY | | + + + + + + | Creatinine | 0.61 | 0.60 - 1.30 | [facility] | | | | | mg/dL | [facility] | | | | | | MEDICAL | | | | | | CENTER - | | | | | | LABORATORY | | + + + + + + | eGFR if not | >60Comment: GLOMERULAR | >=60 | [facility] | | | | FILTRATION | mL/min/1.73m2 | [facility] | | | [facility] | RATE,ESTIMATED | | MEDICAL | | | | mL/min/1.10e3Sssv than | | CENTER - | | [...] [address] | [place] | [phone] | | [facility] | | [address] | | | - LABORATORY | | [...] | | | | TRACIE RAMOS MD ([id number]) | | | | | | on [...] + | Diagnosis | + + | Closed displaced fracture of second metatarsal bone of left foot, initial encounter | + + documented in this encounter Administered Medications + +--------+---------+------+------+------+ | Medication Order | MAR | Action | Dose | Rate | Site | | | Action | Date | | | | + +--------+---------+------+------+------+ + +---+ | albuterol 2.5 mg/3 mL nebulizer | | | solution 2.5 mg 2.5 mg, | | | Nebulization, ONCE PRN, Wheezing, | | | Starting [facility] 07/23/17 at 1429, For | | | [...] ONCE PRN, Wheezing, | | | Starting [facility] 07/23/17 at 1129, For | | | 1 dose, Pre-op | | + +---+ | | | + +---+ + +-------+ +--------+---+ + | bupivacaine (MARCAINE) 0.5% | Given | 07/23/20 | 10 mLs | | Surgical | | injection PRN, Starting [facility] | | 17 1:24 | | | Site | | 07/23/17 at 1324, Intra-op | | PM PDT | | | | + +-------+ +--------+---+ + + +---+ | | | + +---+ | dextrose 50% injection 12.5-25 | | | g 12.5-25 g, Intravenous, EVERY | | | 15 MIN PRN, Low Blood Sugar, Give | | | 12.5g (25 mL) IV if blood | | | glucose 50-69 mg/dL. Give 25g | | | (50 mL) IV if blood glucose < 50, | | | Starting [facility] 07/23/17 at 1129, | | | Repeat [...] MIN PRN, Pain, Starting | | | [facility] 07/23/17 at 1429, Maximum total | | [...] | | | | + +---------+ +---+-------+--------+ +---+---+ | | | +---+---+ + +-------+ +--------+---+ + | lidocaine (PF) 1% injection | Given | 07/23/20 | 10 mLs | | Surgical | | PRN, Starting [facility] 07/23/17 at 1324, | | 17 1:24 | | | Site | | Intra-op | | PM PDT | | | | + +-------+ +--------+---+ + + +---+ | | | + +---+ | ondansetron (ZOFRAN ODT) | | | disintegrating tablet 4 mg 4 mg, | | | Oral, EVERY 6 HOURS PRN, Nausea, | | | Vomiting, Starting [facility] 07/23/17 at | | | 1429, First [...]
--- OUTSIDE RECORDS SUMMARY | ~2020-04-03 | XMS | Encounter Summary ---
Demographics + + + | Address | [address] | | | [place] [address] | + + + | Home Phone | | + + + | Preferred Language | Unknown | + + + | Marital Status | | + + + | Baptist Affiliation | 1041 | + + + | Race | Unknown | + + + | Ethnic Group | Unknown | + + + Author + + + | Author | [facility] | | | and [place] | + + + | Organization | [facility] | | | and [place] | + + + | Address | Unknown | + + + | Phone | Unavailable | + + + Support + + + + + | Name | Relationship | Address | Phone | + + + + + | Juanita Espinal | ECON | [address] | | | | | [place] | | | | | [address] | | + + + + + Care Team Providers + +------+ + | Care Ornamental Ironworker Helper Name | Role | Phone | + +------+ + | Hemanth Lima PCP | | | MD | | | + +------+ + Encounter Details +--------+ + + + + | Date | Type | Department | Care Team | Description | +--------+ + + + + | 07/23/ | Hospital | [facility] | Cornia, Jaswant T, | | | 2017 | Encounter | MED CTR XRAY [address] | DPM [address] | | | | | [place] | [place], [place] | | | | | [place] [address] | [address] | | | | | [phone] | [phone] | | | | | | | [...]
--- OUTSIDE RECORDS SUMMARY | ~2020-04-03 | XMS | Encounter Summary ---
Demographics + + + | Address | [address] | | | [place] [address] | + + + | Home Phone | | + + + | Preferred Language | Unknown | + + + | Marital Status | | + + + | Gnosticist Affiliation | 1041 | + + + | Race | Unknown | + + + | Ethnic Group | Unknown | + + + Author + + + | Author | [facility] | | | and [place] | + + + | Organization | [facility] | | | and [place] | + + + | Address | Unknown | + + + | Phone | Unavailable | + + + Support + + + + + | Name | Relationship | Address | Phone | + + + + + | Juanita Espinal | ECON | [address] | | | | | [place] | | | | | [address] | | + + + + + Care Team Providers + +------+ + | Care Director Oncology Name | Role | Phone | + [...] Description | +--------+--------+ + + + | 02/22/ | Refill | [facility] | Isacc Sears, | Medication Refill | | 2017 | | CARDIOLOGY [address] | [address] | | | | | [place], | [place], | | | | | [place] [address] | [place] [address] | | | | | [phone] | [phone] | | | | | | | [...]
--- OUTSIDE RECORDS SUMMARY | ~2020-04-03 | XMS | Encounter Summary ---
Demographics + + + | Address | [address] | | | [place] [address] | + + + | Home Phone | | + + + | Preferred Language | Unknown | + + + | Marital Status | | + + + | Buddhism Affiliation | 1041 | + + + | Race | Unknown | + + + | Ethnic Group | Unknown | + + + Author + + + | Author | [facility] | | | and [place] | + + + | Organization | [facility] | | | and [place] | + + + | Address | Unknown | + + + | Phone | Unavailable | + + + Support + + + + + | Name | Relationship | Address | Phone | + + + + + | Juanita Espinal | ECON | [address] | | | | | [place], [place] | | | | | [address] | | + + + + + Care Team Providers + +------+ + | Care Technical Operations Manager Name | Role | Phone | + +------+ + | Hemanth Lima | PCP | | | MD | | | + +------+ + Encounter Details +--------+ + + + + | Date | Type | Department | Care Team | Description | +--------+ + + + + | 02/06/ | Episode | [facility] [place] | Fabrizio, | | | 2017 | Changes | NEUROSURGERY [address] | [address] | | | | | [address] | Ip/Mosaic Technician | | | | | [place], [place] | | | | | | [address] | | | | | | [phone] | | | +--------+ + + + [...]
--- OUTSIDE RECORDS SUMMARY | ~2020-04-03 | XMS | Encounter Summary ---
Demographics + + + | Address | [address] | | | [place] [address] | + + + | Home Phone | | + + + | Preferred Language | Unknown | + + + | Marital Status | | + + + | Anglican Affiliation | 1041 | + + + | Race | Unknown | + + + | Ethnic Group | Unknown | + + + Author + + + | Author | [facility] | | | and [place] | + + + | Organization | [facility] | | | and [place] | + + + | Address | Unknown | + + + | Phone | Unavailable | + + + Support + + + + + | Name | Relationship | Address | Phone | + + + + + | Juanita Espinal | ECON | [address] | | | | | [place] | | | | | [address] | | + + + + + Care Team Providers + +------+ + | Care Choir Leader Name | Role | Phone | + [...] + | 02/22/ | Refill | [facility] [place] | Cam Francelas | Medication Refill | | 2018 | | NEUROSURGERY [address] | [address] | | | | | [address] | [address] | | | | | [place], [place] | [place] [address] | | | | | [address] | [phone] | | | | | [phone] | | | +--------+--------+ + + + [...]
--- OUTSIDE RECORDS SUMMARY | ~2020-04-03 | XMS | Encounter Summary ---
Demographics + + + | Address | [address] | | | [place] [address] | + + + | Home Phone | | + + + | Preferred Language | Unknown | + + + | Marital Status | | + + + | Druze Affiliation | 1041 | + + + | Race | Unknown | + + + | Ethnic Group | Unknown | + + + Author + + + | Author | [facility] | | | and [place] | + + + | Organization | [facility] | | | and [place] | + + + | Address | Unknown | + + + | Phone | Unavailable | + + + Support + + + + + | Name | Relationship | Address | Phone | + + + + + | Juanita Espinal | ECON | [address] | | | | | [place] | | | | | [address] | | + + + + + Care Team Providers + +------+ + | Care Garden Equipment Mechanic Name | Role | Phone | + +------+ + | Hemanth Lima PCP | | | MD | | | + +------+ + Reason for Visit +--------+ + | Reason | Comments | +--------+ + | Other | Discuss surgery | +--------+ + Encounter Details +--------+---------+ + + + | Date | Type | Department | Care Team | Description | +--------+---------+ + + + | 01/23/ | Office | [facility] | Jeffry France | Spondylolisthesis of | | 2017 | Visit | NEUROSURGERY [address] | [address] | lumbar region | | | | [address] | [address] | (Primary Dx); Lumbar | | | | [place] | [place] [address] | radiculopathy; | | | | [address] | [phone] | Lumbar foraminal | | | | [phone] | | stenosis; Lumbar | | | | | | facet arthropathy; | | | | | | [...] + + + | Blood Pressure | 153/80 | 2017 9:34 AM | | | | | PST | | + + + + + | Pulse | 78 | 2017 9:34 AM | | | | | PST [...] Weight | 62.6 kg (138 lb) | 2017 9:34 AM | | | | | PST | | + + + + + | Height | 165.1 cm (5' 5") | 2017 9:34 AM | | | | | PST | | + + + + + | Body Mass Index | 22.96 | 2017 9:34 AM | | | | | PST | | + + + + + documented in this encounter Patient Instructions Patient Instructions Jeffry France PA-C - 2017 10:16 AM PSTToday we decided t hat I would review the images of your lumbar and cervical spine with . Today we discu ssed possibility of moving forward with authorizing and scheduling surgery L2-S1 surgery. T his is pending Dr. martinez's review. Early part of this next week I will review the images with him and we will contact you with his recommendations. Thank you for quitting smoking. Ple ase continue to be free of smoking as this is critical to the postoperative healing. We wi ll contact you by of next week. If you have not heard from our office please conta ct us. We discussed and will attempt to arrange a lumbar fusion. I favored an anterior fusion wit h posterior instrumentation. Your insurance provider may or may not approve the procedure, but I feel it is medically necessary and appropriate. We discussed a number of important issues including risks, benefits, and alternatives. A spine class is usually available sometime before your surgery. These classes are very us eful in preparing for spinal surgery. I would encourage you to attend one. After surgery, it is critical that you do not start or resume smoking and also that you rustam id taking any and all anti-inflammatory medications like ibuprofen, Motrin, naproxen, Aleve, Celebrex, diclofenac, Mobic, meloxicam, and many others. The bone is much less likely to h eal if you do not avoid these. It is usually best not to take these or smoke for 6 months. You can research this procedure more at: [email or web address] Choose your Diagnosis first and then choose XLIF under the [employer] [facility] Options link. documented in this encounter Progress Notes eJffry France PA-C - 2017 10:15 AM PSTFormatting of this note might be differ ent from the original. Jeffry France PA-C [address] [facility], [address] [place] [address] FAX: NEUROSURGERY HISTORY AND PHYSICAL EXAMINATION CHIEF COMPLAINT: Chief Complaint Patient presents with Other Discuss surgery HISTORY OF PRESENT ILLNESS: The patient is [...] longer helping. PAST MEDICAL HISTORY: Past Medical History Diagnosis Date TB (tuberculosis) Lumbar stenosis Low back pain Bilateral leg pain Acute pansinusitis Atypical chest pain Impacted cerumen of right ear COPD (chronic obstructive pulmonary disease) ([facility]) Contusion of knee with skin surface intact Right Anterior Lumbar herniated disc L1/T2 Left Hyperlipoproteinemia type Li-a Spondylolisthesis of lumbar region L3/L4, L4/L5 Moderate major depression, single episode (HCC) Primary localized osteoarthritis of left hip Rheumatoid arthritis involving multiple sites ([facility]) Sacroiliac pain Thoracic neuritis T1-T2 Lumbar neuritis L3-L4, L4-L5, L5/S1 Lumbar spondylosis Neoplasm of uncertain behavior of skin Spinal stenosis, lumbar Lumbar canal with neurogenic claudication Lumbar foraminal stenosis 08/13/2016 Atrial fibrillation (HCC) 08-18-2016 PAST SURGICAL HISTORY: Past Surgical History Procedure Laterality Date [facility]ste[facility] Cataract surgery 2008 Dr. Andrew Maldonado Appendectomy CURRENT MEDICATIONS: Current Outpatient Prescriptions Medication Sig Dispense Refill leflunomide (ARAVA) 20 mg tablet Take 20 mg by mouth Daily. Magnesium 400 MG CAPS Take by mouth. metoprolol succinate (TOPROL-XL) 100 mg ER tablet Take 100 mg by mouth Daily. predniSONE (DELTASONE) 5 [...] patient reports that she quit smoking about 2 months ago. Her smoking use included Cig arettes. She has a 10 pack-year smoking history. She has never used smokeless tobacco. She r eports that she does not drink alcohol or use illicit drugs. FAMILY HISTORY: Family History Problem Relation Age of Onset Tuberculosis Father 26 Cancer Mother 77 Alcohol abuse Mother Alcohol abuse Sister 2 sisters No Known Problems Brother Other (see comment) Sister Pancreatic cancer No Known Problems Child No Known Problems Paternal Grandfather No Known Problems Paternal Grandmother No Known Problems Maternal Grandfather Lupus Maternal Grandmother REVIEW OF SYSTEMS GENERALLY: No fever, no night sweats, no anemia, no fatigue, + recent profound weight andre nges. EYES: + eye problems, no use of corrective lenses, no eye injury, no double vision, no bli ndness. EARS, NOSE, AND THROAT: No changes in taste or smell, + hearing difficulty, no ringing in the ears, no ear drainage, no dizziness, no voice changes, no difficulty swallowing, no sign ificant snoring, no sleep apnea, no sinus problems, no major dental work. NEUROLOGICALLY: Please see the review of systems discussed above in the history of present illness. In addition, the patient has numbness/pain of legs, change in walk, pain in back, migraine. PSYCHIATRIC: + depression, no sleep disorders, no anxiety, no bipolar disorder, no psychot ic episodes. CARDIOVASCULAR: No heart attacks, no heart murmur, + heart fluttering, no chest pain, no a nkle swelling. LUNG DISEASE: No shortness of breath, [...] istory of cancer. RHEUMATOLOGIC: + joint arthritis, + rheumatoid arthritis. PHYSICAL EXAMINATION: Blood pressure 153/80, pulse 78, height 1.651 m (5' 5"), weight 62.596 kg (138 lb). Body ma ss index is 22.96 kg/(m^2). GENERAL: Dorothea Calvo is in no acute distress with unlabored respirations. The shay ent does appear uncomfortable throughout the exam [...] has no apparent deficits with short or laborer marine terminal memory. CRANIAL NERVES: Fundoscopic Exam: The optic [...] Intrinsics 5 5 Ulnar Intrinsics 5 5 Cabin Cleaner Strength 4+ 4+ Hip Flexion 5 5 [...] ASSESSMENT: NEUROSURGICAL DIAGNOSES: Encounter Diagnoses Name Primary? Spondylolisthesis of lumbar region Yes Lumbar radiculopathy Lumbar foraminal stenosis Lumbar facet arthropathy Foraminal stenosis of lumbar region DDD (degenerative disc disease), lumbar GENERAL DIAGNOSES: Past Medical History Diagnosis Date TB (tuberculosis) [...] left hip Rheumatoid arthritis involving multiple sites ([facility]) Sacroiliac pain Thoracic neuritis T1-T2 Lumbar neuritis L3-L4, L4-L5, L5/S1 Lumbar spondylosis Neoplasm of uncertain behavior of skin Spinal stenosis, lumbar Lumbar canal with neurogenic claudication Lumbar foraminal stenosis 08/13/2016 Atrial fibrillation ([facility]) 08-18-2016 PLAN: Dorothea Calvo presented today, and it was a pleasure seeing this patient and assessin g her neurologic problems. The patient is congratulated on quitting smoking. We will review the images early part of next week and make formal recommendations regarding surgery. We will contact her next week. If Dr. martinez is in agreement we will plan to move forward with authorizing and scheduling L2 through S1 lumbar fusion. If she has not heard from us by of next week she will contact our office ELECTRONICALLY SIGNED BY: Jeffry France PA-C, 2017 10:18 I have reviewed the MRI and images with . We would like to begin the process of aut horizing and scheduling L2-S1 fusion. L2-L5 LAIF with right-sided approach as well as L5-S1 TLIF and posterior instrumentation and fusion documented in this encounter Plan of Treatment Not on filedocumented as of this encounter Visit Diagnoses + + | Diagnosis | + + | Spondylolisthesis of lumbar region - Primary Acquired spondylolisthesis | + + | Lumbar [...]
--- OUTSIDE RECORDS SUMMARY | ~2020-04-03 | XMS | Encounter Summary ---
Demographics + + + | Address | [address] | | | [place] [address] | + + + | Home Phone | | + + + | Preferred Language | Unknown | + + + | Marital Status | | + + + | Tenriism Affiliation | 1041 | + + + | Race | Unknown | + + + | Ethnic Group | Unknown | + + + Author + + + | Author | [facility] | | | and [place] | + + + | Organization | [facility] | | | and [place] | + + + | Address | Unknown | + + + | Phone | Unavailable | + + + Support + + + + + | Name | Relationship | Address | Phone | + + + + + | Juanita Espinal | ECON | [address] | | | | | [place] | | | | | [address] | | + + + + + Care Team Providers + +------+ + | Care Telephone Betting Clerk Name | Role | Phone | [...] | 08/05/ | Refill | [facility] [place] | Jeffry France | Medication Question | | 2016 | | NEUROSURGERY [address] | [address] | | | | | [address] | [place] [address] | | | | | [place], [place] | [place] [address] | | | | | [address] | [phone] | | | | | [phone] | | | +--------+--------+ + + + [...]
--- OUTSIDE RECORDS SUMMARY | ~2020-04-03 | XMS | Encounter Summary ---
Demographics + + + | Address | [address] | | | [place] [address] | + + + | Home Phone | | + + + | Preferred Language | Unknown | + + + | Marital Status | | + + + | Latter-Day Affiliation | 1041 | + + + | Race | Unknown | + + + | Ethnic Group | Unknown | + + + Author + + + | Author | [facility] | | | and [place] | + + + | Organization | [facility] | | | and [place] | + + + | Address | Unknown | + + + | Phone | Unavailable | + + + Support + + + + + | Name | Relationship | Address | Phone | + + + + + | Juanita Espinal | ECON | [address] | | | | | [place] | | | | | [address] | | + + + + + Care Team Providers + +------+ + | Care Director Television News Name | Role | Phone | + [...] | | [address] | [place] [address] | Appt Down 30 Mins) | | | | [place] | [phone] | | | | | [address] | | | | | | [phone] | | | +--------+ + + + [...]
--- OUTSIDE RECORDS SUMMARY | ~2020-04-03 | XMS | Encounter Summary ---
Demographics + + + | Address | [address] | | | [place] [address] | + + + | Home Phone | | + + + | Preferred Language | Unknown | + + + | Marital Status | | + + + | Gnosticist Affiliation | 1041 | + + + | Race | Unknown | + + + | Ethnic Group | Unknown | + + + Author + + + | Author | [facility] | | | and [place] | + + + | Organization | [facility] | | | and [place] | + + + | Address | Unknown | + + + | Phone | Unavailable | + + + Support + + + + + | Name | Relationship | Address | Phone | + + + + + | Juanita Espinal | ECON | [address] | | | | | [place] | | | | | [address] | | + + + + + Care Team Providers + +------+ + | Care Buhr Dresser Name | Role | Phone | + [...] | | [address] | [place] [address] | Appointment | | | | [place] | [phone] | | | | | [address] | | | | | | [phone] | | | +--------+ + + + [...]
--- OUTSIDE RECORDS SUMMARY | ~2020-04-03 | XMS | Encounter Summary ---
Demographics + + + | Address | [address] | | | [place] [address] | + + + | Home Phone | | + + + | Preferred Language | Unknown | + + + | Marital Status | | + + + | Catholic Affiliation | 1041 | + + + | Race | Unknown | + + + | Ethnic Group | Unknown | + + + Author + + + | Author | [facility] | | | and [place] | + + + | Organization | [facility] | | | and [place] | + + + | Address | Unknown | + + + | Phone | Unavailable | + + + Support + + + + + | Name | Relationship | Address | Phone | + + + + + | Juanita Espinal | ECON | [address] | | | | | [place] | | | | | [address] | | + + + + + Care Team Providers + +------+ + | Care Cotton Ginner Name | Role | Phone | + [...] Description | +--------+--------+ + + + | 03/09/ | Refill | [facility] | Isacc Sears, | Medication Refill | | 2017 | | CARDIOLOGY [address] | [address] [place] | | | | | [place], | [place], | | | | | [place] [address] | [place] [address] | | | | | [phone] | [phone] | | | | | | | [...]
--- OUTSIDE RECORDS SUMMARY | ~2020-04-03 | XMS | Encounter Summary ---
Demographics + + + | Address | [address] | | | [place] [address] | + + + | Home Phone | | + + + | Preferred Language | Unknown | + + + | Marital Status | | + + + | Advent Affiliation | 1041 | + + + | Race | Unknown | + + + | Ethnic Group | Unknown | + + + Author + + + | Author | [facility] | | | and [place] | + + + | Organization | [facility] | | | and [place] | + + + | Address | Unknown | + + + | Phone | Unavailable | + + + Support + + + + + | Name | Relationship | Address | Phone | + + + + + | Juanita Espinal | ECON | [address] | | | | | [place] | | | | | [address] | | + + + + + Care Team Providers + +------+ + | Care Whittling Room Operator Name | Role | Phone | [...] | | [address] | [place] [address] | | | | | [place] | [phone] | | | | | [address] | | | | | | [phone] | | | +--------+ + + + [...]
--- OUTSIDE RECORDS SUMMARY | ~2020-04-03 | XMS | Encounter Summary ---
Demographics + + + | Address | [address] | | | [place] [address] | + + + | Home Phone | | + + + | Preferred Language | Unknown | + + + | Marital Status | | + + + | Scientologist Affiliation | 1041 | + + + | Race | Unknown | + + + | Ethnic Group | Unknown | + + + Author + + + | Author | [facility] | | | and [place] | + + + | Organization | [facility] | | | and [place] | + + + | Address | Unknown | + + + | Phone | Unavailable | + + + Support + + + + + | Name | Relationship | Address | Phone | + + + + + | Juanita Espinal | ECON | [address] | | | | | [place] | | | | | [address] | | + + + + + Care Team Providers + +------+ + | Care Steam Service Inspector Name | Role | Phone | + +------+ + | Hemanth Lima PCP | | | MD | | | + +------+ + Encounter Details +--------+ + + + + | Date | Type | Department | Care Team | Description | +--------+ + + + + | 02/06/ | Orders Only | [facility] [place] | Edin Lynn MD | Lumbar radiculopathy | | 2017 | | NEUROSURGERY [address] | [address] | (Primary Dx); | | | | [address] | [place] [address] | Spondylolisthesis of | | | | [place], [place] | [phone] | lumbar region; | | | | [address] | | Lumbar facet | | | | [phone] | | arthropathy; | | | | [...] filedocumented as of this encounter Results XR Chest PA and [...] thoracic aorta and likely the subclavian | [facility] | | arteries as well. The cardiomediastinal [...] + | [address] | [address] | [place] | [phone] | | [facility] | | [address] | | | - IMAGING | | | | + + + + + CBC with Differential (05/01/2017 1:16 PM PDT) [...] | | | | g/dL | [facility] | | | | | | MED[facility] [...] [facility] | | | | | [facility] | | | [...] | | Lymphocytes | | K/uL | [facility] | | | | | | MEDICAL | | | | | | CENTER - | | | | | | LABORATORY | | + +-------+ + + + | Absolute | 1.00 | 0.00 - 1.00 | [facility] | | | Monocytes | | K/uL | [facility] | | | | | | MEDICAL | | | | | | CENTER - | | | | | | LABORATORY | | + +-------+ + + + | Absolute | 0.30 | 0.00 - 0.40 | [facility] | | | Eosinophils | | K/uL | [facility] | [...] + | [facility] | [address] | [place], [place] | [phone] | | [facility] | | [address] | | | - LABORATORY | | [...] mL/min/1.73m2 | [facility] | | | MONGOLIAN | RATE,ESTIMATED | | MEDICAL | | | | mL/min/1.63m7Rwpk than | | CENTER - | | [...] | | ine Ratio | | | [facility] | | [...] [address] | [place] | [phone] | | [facility] | | [address] | | | - LABORATORY | | [...] MD | | | | | | ([id number]) on 05/04/2017 | | | | | [...]
--- OUTSIDE RECORDS SUMMARY | ~2020-04-03 | XMS | Encounter Summary ---
Demographics + + + | Address | [address] | | | [place] [address] | + + + | Home Phone | | + + + | Preferred Language | Unknown | + + + | Marital Status | | + + + | Bahai Affiliation | 1041 | + + + | Race | Unknown | + + + | Ethnic Group | Unknown | + + + Author + + + | Author | [facility] | | | and [place] | + + + | Organization | [facility] | | | and [place] | + + + | Address | Unknown | + + + | Phone | Unavailable | + + + Support + + + + + | Name | Relationship | Address | Phone | + + + + + | Juanita Espinal | ECON | [address] | | | | | [place] | | | | | [address] | | + + + + + Care Team Providers + +------+ + | Care Multi Craft Maintenance Technician Name | Role | Phone | [...] | Specialty | Physical | Diagnoses | Jose, | [facility] | | | Services | Therapy / | S/P lumbar | José Miguel Schultz, | Pt Op [address] | | | Required | Rehabilitatio | fusion Gait | PA-C [address] | [place] | | | | n | abnormality | [address] | [place], | | | | | | [address] | [place] [address] | | | | | | [place], | Phone: | | | | | | [place] [address] | [phone] | | | | | | Phone: | Fax: | | | | | | [phone] | [phone] | | | | | | Fax: | | | | | | | [phone] | | +--------+ + + + + + Encounter Details +--------+ + + + + | Date | Type | Department | Care Team | Description | +--------+ + + + + | 06/06/ | Orders Only | [facility] [place] | José Miguel Garcia | S/P lumbar fusion | | 2017 | | NEUROSURGERY [address] | [address] | (Primary Dx); Gait | | | | [address] | [address] | abnormality | | | | [place], [place] | [place], [place] | | | | | [address] | [address] | | | | | [phone] | | | +--------+ + + + [...] | + + +--------+ + + | Ambulatory referral | Outpatient | Routin | S/P lumbar fusion | Ordered: 06/06/2017 | | to Physical Therapy | Referral | e | Gait abnormality | | + + +--------+ + + documented as of this encounter Visit Diagnoses + + | Diagnosis | + + | S/P lumbar fusion - Primary Arthrodesis status | + + | Gait abnormality Abnormality of gait | + + documented in this encounter"
--- OUTSIDE RECORDS SUMMARY | ~2020-04-03 | XMS | Encounter Summary ---
Demographics + + + | Address | [address] | | | [place] [address] | + + + | Home Phone | | + + + | Preferred Language | Unknown | + + + | Marital Status | | + + + | Yazdanism Affiliation | 1041 | + + + | Race | Unknown | + + + | Ethnic Group | Unknown | + + + Author + + + | Author | [facility] | | | and [place] | + + + | Organization | [facility] | | | and [place] | + + + | Address | Unknown | + + + | Phone | Unavailable | + + + Support + + + + + | Name | Relationship | Address | Phone | + + + + + | Juanita Espinal | ECON | [address] | | | | | [place], [place] | | | | | [address] | | + + + + + Care Team Providers + +------+ + | Care Technical Inspector Name | Role | Phone | [...] | RN | | | | | [place], | | | | | | [place] [address] | | | | | | [phone] | | | +--------+ + + + [...]
--- OUTSIDE RECORDS SUMMARY | ~2020-04-03 | XMS | Encounter Summary ---
Demographics + + + | Address | [address] | | | [place] [address] | + + + | Home Phone | | + + + | Preferred Language | Unknown | + + + | Marital Status | | + + + | Mormonism Affiliation | 1041 | + + + | Race | Unknown | + + + | Ethnic Group | Unknown | + + + Author + + + | Author | [facility] | | | and [place] | + + + | Organization | [facility] | | | and [place] | + + + | Address | Unknown | + + + | Phone | Unavailable | + + + Support + + + + + | Name | Relationship | Address | Phone | + + + + + | Juanita Espinal | ECON | [address] | | | | | [place] | | | | | [address] | | + + + + + Care Team Providers + +------+ + | Care Manager Care Name | Role | Phone | + [...] [address] | | | | | [place], [place] | [place] [address] | | | | | [address] | [phone] | | | | | [phone] | | | +--------+ + + + [...]
--- OUTSIDE RECORDS SUMMARY | ~2020-04-03 | XMS | Encounter Summary ---
Demographics + + + | Address | [address] | | | [place] [address] | + + + | Home Phone | | + + + | Preferred Language | Unknown | + + + | Marital Status | | + + + | Latter-Day Affiliation | 1041 | + + + | Race | Unknown | + + + | Ethnic Group | Unknown | + + + Author + + + | Author | [facility] | | | and [place] | + + + | Organization | [facility] | | | and [place] | + + + | Address | Unknown | + + + | Phone | Unavailable | + + + Support + + + + + | Name | Relationship | Address | Phone | + + + + + | Juanita Espinal | ECON | [address] | | | | | [place] | | | | | [address] | | + + + + + Care Team Providers + +------+ + | Care Autocad Draftsman Name | Role | Phone | + +------+ + | Hemanth Lima PCP | | | MD | | | + +------+ + Reason for Visit + + + | Reason | Comments | + + + | Lab Order | | + + + Encounter Details +--------+ + + + + | Date | Type | Department | Care Team | Description | +--------+ + + + + | 10/14/ | Telephone | [facility] | Isacc Sears, | Lab Order | | 2016 | | [facility] [address] | [place] [address] | | | | | [place], | [place], | | | | | [place] [address] | [place] [address] | | | | | [phone] | [phone] | | | | | | | [...] of this encounter Plan of Treatment + +------+--------+ + + | Name | Type | Priori | Associated Diagnoses | Order Schedule | | | | ty | | | + +------+--------+ + + | Lipid Panel | Lab | Routin | Atrial | Expected: | | | | e | fibrillation with | 10/15/2017, Expires: | | | | | RVR ([facility]) Encounter | 10/15/2018 | | | | | for lipid screening | | | | | | for cardiovascular | | | | | | disease | | + +------+--------+ + + documented as of this encounter Visit Diagnoses + + | Diagnosis | + + | Atrial fibrillation with RVR ([facility]) - Primary Atrial fibrillation | + + | Encounter for lipid screening for cardiovascular disease | + + documented in this encounter"
--- OUTSIDE RECORDS SUMMARY | ~2020-04-03 | XMS | Clinical Summary ---
Demographics + + + | Address | [address] | | | [place] [address] | + + + | Home Phone [...] Organization | [facility] | | | and [place] | + + + | Address | Unknown | + + + | Phone | Unavailable | + + + Support + + + + + | Name | Relationship | Address | Phone | + + + + + | Juanita Espinal | ECON | [address] | | | | | [place] | | | | | [address] | | + + + + + Care Team Providers + +------+ + | Care Interior Decorator Painting Name | Role | Phone | + [...] Anteri | NUVASIVE - | | | [id number] | | [id number] - | c | or: | NVSV | | | 5 / / | | [id number]: Qty: 1 on | | Spine | | | | | | 05/26/2017 by Edin Lynn, | | Lumbar | | | | | | MD at [facility] | | | | | | | | [facility] | | | | | | | + +--------+--------+ +--------+--------+--------+ | Imp Spn Intbdy Xlw | Generi | Anteri | NUVASIVE - | | | [id number] | | [id number] - | c | or: | NVSV | | | 0 / / | | [id number]: Qty: 1 on | | Spine | | | | | | 05/26/2017 by Edin Lynn, | | Lumbar | | | | | | MD at [facility] | | | | | | | | [facility] | | | | | | | + +--------+--------+ +--------+--------+--------+ | Imp Spn Intbdy Xlw [id number] | Generi | N/A: | NUVASIVE - | | | [id number] | | - [id number]: Qty: 1 | c | Spine | NVSV | | | 0 / / | | on 05/26/2017 by Edin Lynn | | Lumbar | | | | | | MD J Luis at [facility] | | | | | | | | [facility] | | | | | | | + +--------+--------+ +--------+--------+--------+ | Yomi Ti Prebent Lordtc 140mm - | Generi | Anteri | NUVASIVE - | | | [id number] | | [id number]: Qty: 2 | c | or: | NVSV | | | 0 / / | | on 05/26/2017 by Edin Lynn | | Spine | | | | | | MD J Luis at [facility] | | Lumbar | | | | | | [facility] | | | | | | | + +--------+--------+ +--------+--------+--------+ | Tlif Oblique [id number] 12deg | Generi | Anteri | NUVASIVE - | | | [id number] | | - [id number]: Qty: 1 | c | or: | NVSV | | | 2 / / | | on 05/26/2017 by Edin Lynn | | Spine | | | | | | MD J Luis at [facility] | | Lumbar | | | | | | [facility] | | | | | | | + +--------+--------+ +--------+--------+--------+ | Putty Reno 10cc Dbm - | Graft | Anteri | MEDTRONIC - | | 02/09/ | [id number] | | [id number]: Qty: 1 | | or: | MEDT | | 2020 | | | on 05/26/2017 by Edin Lynn | | Spine | | | | /[id number] | | MD J Luis at [facility] | | Lumbar | | | | 9-016 | | [facility] | | | | | | / | + +--------+--------+ +--------+--------+--------+ | Graft Infuse Bone Kit Xs - | Graft | Anteri | SOFAMOR | | 04/15/ | [id number] | | [id number]: Qty: 2 on | | or: | LEISAEK - DIV | | 2018 | 0 / | | 05/26/2017 by Edin Lynn, | | Spine | MEDTRONIC | | | /[id number] | | at [facility] | | Lumbar | - SFDK | | | 53AAD | | [facility] | | | | | | | + +--------+--------+ +--------+--------+--------+ | Putasad Reno 5cc Dbm - | Graft | Anteri | MEDTRONIC - | | 09/15/ | [id number] | | [id number]: Qty: 1 | | or: | MEDT | | 2019 | /[id number] | | on 05/26/2017 by Edin Lynn | | Spine | | | | 0-077 | | MD J Luis at [facility] | | Lumbar | | | | / | | [facility] | | | | | | | + +--------+--------+ +--------+--------+--------+ | Plate Str Ti 2.4mm 6h - | Plate | Left: | JADRIANA RUSHING | | | 449.90 | | [id number]: Qty: 1 on | | Foot | SYNTHES - | | | / | | 07/23/2017 by Jaswant Dolan | | | SYNT | | | | | GURMEET Huizar at [facility] | | | | | | | | [facility] | | | | | | | + +--------+--------+ +--------+--------+--------+ | Screw Set - | Screw | Anteri | NUVASIVE - | | | [id number] | | [id number]: Qty: 10 | | or: | NVSV | | | 0 / / | | on 05/26/2017 by Edin Lynn | | Spine | | | | | | MD J Luis at [facility] | | Lumbar | | | | | | [facility] | | | | | | | + +--------+--------+ +--------+--------+--------+ | Screw Polyax Prcpt 5.5x55mm - | Screw | Anteri | NUVASIVE - | | | [id number] | | [id number]: Qty: 4 | | or: | NVSV | | | 5A / / | | on 05/26/2017 by Edin Lynn | | Spine | | | | | | MD J Luis at [facility] | | Lumbar | | | | | | [facility] | | | | | | | + +--------+--------+ +--------+--------+--------+ | Screw Polyax Prcpt 8.5x50mm - | Screw | Anteri | NUVASIVE - | | | [id number] | | [id number]: Qty: 2 | | or: | NVSV | | | 0A / / | | on 05/26/2017 by Edin Lynn | | Spine | | | | | | MD J Luis at [facility] | | Lumbar | | | | | | [facility] | | | | | | | + +--------+--------+ +--------+--------+--------+ | Screw Polyax Precept 6.5x50 - | Screw | Anteri | NUVASIVE - | | | [id number] | | [id number]: Qty: 2 | | or: | NVSV | | | 0A / / | | on 05/26/2017 by Edin yLnn | | Spine | | | | | | MD J Luis at [facility] | | Lumbar | | | | | | [facility] | | | | | | | + +--------+--------+ +--------+--------+--------+ | Screw Polyax Prcpt 7.5x50mm - | Screw | Anteri | NUVASIVE - | | | [id number] | | [id number]: Qty: 2 | | or: | NVSV | | | 0A / / | | on 05/26/2017 by Edin Lynn | | Spine | | | | | | MD J Luis at [facility] | | Lumbar | | | | | | [facility] | | | | | | | + +--------+--------+ +--------+--------+--------+ | Screw Crtx Slf-Tp Ti 2.4x14mm | Screw | Left: | GARTHBandar RUSHING | | | 401.51 | | - [id number]: Qty: 2 | | Foot | SYNTHES - | | | 4.96 / | | on 07/23/2017 by Magdaleno, | | | SYNT | | | / | | Jaswant Huizar DPM at [facility] | | | | | | | | [facility] | | | | | | | + +--------+--------+ +--------+--------+--------+ | Screw Crtx Slf-Tp Ti 2.4x10mm | Screw | Left: | JJHCS DEPUY | | | 401.51 | | - [id number]: Qty: 2 | | Foot | SYNTHES - | | | 0.96 / | | on 07/23/2017 by Magdaleno, | | | SYNT | | | / | | Jaswant Huizar DPM at [facility] | | | | | | | | [facility] | | | | | | | + +--------+--------+ +--------+--------+--------+ | Screw Crtx Slf-Tp Ti 2.4x11mm | Screw | Left: | JJHCS DEPUY | | | 401.51 | | - [id number]: Qty: 1 | | Foot | SYNTHES - | | | 1.96 / | | on 07/23/2017 by Magdaleno, | | | SYNT | | | / | | Jaswant T, DPM at [facility] | | | | | | | | [facility] | | | | | | | [...] +--------+--------+ +--------+--------+--------+ | Imp Spn Intbdy Xlw [id number] | Generi | Anteri | NUVASIVE - | | | [id number] | | - [id number]: Qty: 1 | c | or: | NVSV | | | 0 / / | | on [facility]/26/2017 at [facility] | Spine | | | | | | [facility] | | Lumbar | | | | [...] +--------+ +---------+--------+ | MEDICARE | MEDICA | [id number] | 01/15/20 | [phone] | | Medica | | | RE | | 10-Pre | 5 | | re | | | PART A | | sent | | | | | | AND B | | | | | | + +--------+ +--------+ +---------+--------+ | [employer] | [facility]BEL | [id number] | 07/17/20 | [phone] | | Indemn | | HEALTH | [...] Person | Self | [birth year] | [address] | | | al/Fam | | 1945 | [phone] | [place] | | | sarah | | | 2 (Home) | [address] | + +--------+ +--------+ + + Advance Directives + + + + + | Type | Date Recorded | Patient | Explanation | | | | Modeler | | + + + + + | Power of | | | | | Chainer | | | | + + + [...]
--- OUTSIDE RECORDS SUMMARY | ~2020-04-03 | XMS | Encounter Summary ---
Demographics + + + | Address | [address] | | | [place] [address] | + + + | Home Phone | | + + + | Preferred Language | Unknown | + + + | Marital Status | | + + + | Episcopal Affiliation | 1041 | + + + | Race | Unknown | + + + | Ethnic Group | Unknown | + + + Author + + + | Author | [facility] | | | and [place] | + + + | Organization | [facility] | | | and [place] | + + + | Address | Unknown | + + + | Phone | Unavailable | + + + Support + + + + + | Name | Relationship | Address | Phone | + + + + + | Juanita Espinal | ECON | [address] | | | | | [place] | | | | | [address] | | + + + + + Care Team Providers + +------+ + | Care Forensic Engineer Name | Role | Phone | + +------+ + | Hemanth Lima PCP | | | MD | | | + +------+ + Encounter Details +--------+ + + + + | Date | Type | Department | Care Team | Description | +--------+ + + + + | 07/23/ | Anesthesia | [facility] | Kenan Burns, | | | 2017 | Event | MED CTR OR INTRA OP | MD [address] | | | | | [address] | [place] | | | | | [place] | [address] | | | | | [address] | | | | | | [phone] | | | +--------+ + + + + Anesthesia Record + + + + + | Procedure Name | Responsible | Anesthesia Start | Anesthesia Stop Time | | | Anesthesiologist | Time | | + + + + + | O.R.I.F. of Left 2nd | Kenan Burns MD | 07/23/17 1305 | 07/23/17 1428 | | Metatarsal Fracture | | | | | (Left Toe) | | | | + + + + + +----+---+ + + | Da | T | Event | Comment | | te | i | | | | | m | | | | | e | | | +----+---+ + + | 09 | 1 | | | | /0 | 2 | | | | 7/ | 5 | | | | 20 | 3 | | | | 17 | | | | +----+---+ + + | | 1 | An Checkout | Pre-use anesthesia machine/equipment checkout. | | | 2 | | | | | 5 | | | | | 3 | | | +----+---+ + + | | 1 | An Start | Reassessment prior to anesthesia induction/procedure. | | | 3 | | | | | 0 | | | | | 5 | | | +----+---+ + + | | 1 | Antibiotic | | | | 3 | Given | | | | 0 | | | | | 5 | | | +----+---+ + + | | 1 | An | | | | 3 | Induction | | | | 1 | | | | | 2 | | | +----+---+ + + | | 1 | Block Start | | | | 3 | | | | | 1 | | | | | 2 | | | +----+---+ + + | | 1 | AN Block | | | | 3 | End | | | | 1 | | | | | 7 | | | +----+---+ + + | | 1 | An Patient | | | | 3 | Move | | | | 2 | | | | | 3 | | | +----+---+ + + | | 1 | An Tourn | 250mmHg | | | 3 | Inflated | | | | 2 | | | | | 3 | | | +----+---+ + + | | 1 | First | | | | 3 | Inc/Proc St | | | | 2 | | | | | 5 | | | +----+---+ + + | | 1 | an stop | | | | 4 | data | | | | 2 | | | | | 4 | | | +----+---+ + + | | 1 | An Stop | Patient handed off to recovery nurse. | | | 2 | | | | | 8 | | | +----+---+ + + +------+ | Meds | +------+ + +--------+ | Name | Total | + +--------+ | lidocaine 2% | 70 mg | + +--------+ | propofol | 140 mg | + +--------+ | fentaNYL injection (2 mL) | 75 mcg | + +--------+ | ceFAZolin in saline (ANCEF) IVPB | 2 g | | 2 g | | + +--------+ | lactated ringers (LR) infusion | 650 mL | + +--------+ + + | Name | + + | N2O Flow Rate (L/Min) | + + | O2 Flow Rate (L/Min) | + + | Insp O2 | + + | Exp SEV | + + | Air Flow Rate (L/Min) | + + + + | No blood administrations on file. | + + +--------+ + + + | Type | Details | Placement | Removal | +--------+ + + + | Brace/ | 07/17/17; 1041; (left walking | 07/17/17 1041 by | 07/23/17 1509 by Yann | | Orthot | boot); 07/23/17; 1509 | Keiry Lyman, | Raina Yeh RN | | ic/Ort | | RN | | | hosis | | | | +--------+ + + + | Periph | 07/23/17; 1211; Right; Wrist; | 07/23/17 1211 by | 07/23/17 1509 by Yann | | eral | ajku-xwd-porevz catheter system; | Ruby Chen, Janie Yeh RN | | IV | 20 gauge, 1 1/2 in length; | RN | | | | distraction, intradermal | | | | | injection, topical anesthetic | | | | | spray applied; 07/23/17; 1509 | | | +--------+ + + + | Read | 07/23/17; 1331; Left; foot; | 07/23/17 1331 by | 07/23/17 1509 by Yann | | only - | orthopedic foot boot used from | Ivanna Shultz RN | Raina Yeh RN | | | office ; 07/23/17; 1509 | | | | Incisi | | | | | on | | | | +--------+ + + + documented in this encounter Social History + + + +--------+ + [...] filedocumented in this encounter Administered Medications + +--------+ +------+------+------+ | Medication Order | MAR | Action | Dose | Rate | Site | | | Action | Date | | | | + +--------+ +------+------+------+ | ceFAZolin in saline (ANCEF) | Given | 07/23/20 | 2 g | | | | IVPB 2 g 2 g, Intravenous, | | 17 1:05 | | | | | Administer over 30 Minutes, Prior | | PM PDT | | | | | to Incision, Starting Bia 07/23/17 | | | | | | | at 1129, For 1 dose, Give within | | | | | | | one hour prior to incision. Keep | | | | | | | in refrigerator., Pre-op, | | | | | | | Indications: Surgical Prophylaxis | | | | | | + +--------+ +------+------+------+ +---+---+ | | | +---+---+ + +-------+ +--------+---+---+ | fentaNYL (PF) injection | Given | 07/23/20 | 25 mcg | | | | Intravenous, PRN, Pain, Starting | | 17 2:02 | | | | | Bia 07/23/17 at 1324, Anesthesia | | PM PDT | | | | | Intra-op | | | | | | + +-------+ +--------+---+---+ +-------+ +--------+---+---+ | Given | 07/23/20 | 25 mcg | | | | | 17 1:33 | | | | | | PM PDT | | | | +-------+ +--------+---+---+ | Given | 07/23/20 | 25 mcg | | | | | 17 1:24 | | | | | | PM PDT | | | | +-------+ +--------+---+---+ +---+---+ | | | +---+---+ + +-------+ +-------+---+---+ | lidocaine (PF) 2% injection | Given | 07/23/20 | 70 mg | | | | Intravenous, PRN, Starting Bia | | 17 1:12 | | | | | 07/23/17 at 1312, Anesthesia | | PM PDT | | | | | Intra-op | | | | | | + +-------+ +-------+---+---+ +---+---+ | | | +---+---+ + +-------+ +-------+---+---+ | propofol (DIPRIVAN) injection | Given | 07/23/20 | 10 mg | | | | Intravenous, PRN, Starting Bia | | 17 2:07 | | | | | 07/23/17 at 1312, Anesthesia | | PM PDT | | | | | Intra-op | | | | | | + +-------+ +-------+---+---+ +-------+ +-------+---+---+ | Given | 07/23/20 | 10 mg | | | | | 17 2:05 | | | | | | PM PDT | | | | +-------+ +-------+---+---+ | Given | 07/23/20 | 20 mg | | | | | 17 1:59 | | | | | | PM PDT | | | | +-------+ +-------+---+---+ +---+---+ | | | +---+---+ documented in this encounter"
--- OUTSIDE RECORDS SUMMARY | ~2020-04-03 | XMS | Encounter Summary ---
Demographics + + + | Address | [address] | | | [place] [address] | + + + | Home Phone [...] Organization | [facility] | | | and [place] | + + + | Address | Unknown | + + + | Phone | Unavailable | + + + Support + + + + + | Name | Relationship | Address | Phone | + + + + + | Juanita Espinal | ECON | [address] | | | | | [place] | | | | | [address] | | + + + + + Care Team Providers + +------+ + | Care Supervisor Veneer Name | Role | Phone | + +------+ + | Hemanth Lima PCP | | | MD | | | + +------+ + Encounter Details +--------+ + + + + | Date | Type | Department | Care Team | Description | +--------+ + + + + | 07/23/ | Anesthesia | [facility] | Kenan Burns, | | | 2017 | Event | MED CTR OR INTRA OP | MD [address] | | | | | [address] | [place] | | | | | [place] | [address] | | | | | [address] | | | | | | [phone] | | | +--------+ + + + [...] 1509 by Yann | | eral | rxsd-htz-vacalu catheter system; | Ruby Chen, Janie Yeh [...]
--- OUTSIDE RECORDS SUMMARY | ~2020-04-03 | XMS | Encounter Summary ---
Demographics + + + | Address | [address] | | | [place] [address] | + + + | Home Phone | | + + + | Preferred Language | Unknown | + + + | Marital Status | | + + + | Uatsdin Affiliation | 1041 | + + + | Race | Unknown | + + + | Ethnic Group | Unknown | + + + Author + + + | Author | [facility] | | | and [place] | + + + | Organization | [facility] | | | and [place] | + + + | Address | Unknown | + + + | Phone | Unavailable | + + + Support + + + + + | Name | Relationship | Address | Phone | + + + + + | Juanita Espinal | ECON | [address] | | | | | [place] | | | | | [address] | | + + + + + Care Team Providers + +------+ + | Care Hydrodynamicist Name | Role | Phone | + +------+ + | Hemanth Lima PCP | | | MD | | | + +------+ + Encounter Details +--------+ + + + + | Date | Type | Department | Care Team | Description | +--------+ + + + + | 07/23/ | Hospital | [facility] | Cornia, Jaswant T, | | | 2017 | Encounter | MED CTR OR INTRA OP | DPM [address] | | | | | [address] | [place], [place] | | | | | [place], [place] | [address] | | | | | [address] | [phone] | | | | | [phone] | | | +--------+ + + + [...] You can't be awakened Date Last Reviewed: 09/02/201619994672-5394 The [employer]. [address] [place] [address]. All righ ts reserved. This information is [...] [address] | [place] | [phone] | | [facility] | | [address] | | | - LABORATORY | | [...] | 0.61 | 0.60 - 1.30 | [facility] | | | | | mg/dL [...] mL/min/1.73m2 | [facility] | | | [facility] | RATE,ESTIMATED | | MEDICAL | | | | mL/min/1.72z5Tlae than | | CENTER - | | [...] + | [address] | [address] | [place] | [phone] | | [facility] | | [address] | | | - LABORATORY | | [...] | | | | TRACIE RAMOS MD ([id number]) | | | | | | on [...] ONCE PRN, Wheezing, | | | Starting [facility] 07/23/17 at 1429, For | | | [...] ONCE PRN, Wheezing, | | | Starting [facility] 07/23/17 at 1129, For | | | [...] glucose < 50, | | | Starting [facility] 07/23/17 at 1129, | | | Repeat [...] MIN PRN, Pain, Starting | | | [facility] 07/23/17 at 1429, Maximum total | | [...]
--- OUTSIDE RECORDS SUMMARY | ~2020-04-03 | XMS | Encounter Summary ---
Demographics + + + | Address | [address] | | | [place] [address] | + + + | Home Phone [...] | [facility] | | | and [place] | + + + | Address | Unknown | + + + | Phone | Unavailable | + + + Support + + + + + | Name | Relationship | Address | Phone | + + + + + | Juanita Espinal | ECON | [address] | | | | | [place] | | | | | [address] | | + + + + + Care Team Providers + +------+ + | Care Fermentation Scientist Name | Role | Phone | + [...] + | 02/22/ | Refill | [facility] | Isacc Sears, | Medication Refill | | 2017 | | CARDIOLOGY [address] | | | | | [place], | [place], | | | | | [place] [address] | [place] [address] | | | | | [phone] | [phone] | | | | | | | [...]
--- OUTSIDE RECORDS SUMMARY | ~2020-04-03 | XMS | Encounter Summary ---
Demographics + + + | Address | [address] | | | [place] [address] | + + + | Home Phone | | + + + | Preferred Language | Unknown | + + + | Marital Status | | + + + | Sabianist Affiliation | 1041 | + + + | Race | Unknown | + + + | Ethnic Group | Unknown | + + + Author + + + | Author | [facility] | | | and [place] | + + + | Organization | [facility] | | | and [place] | + + + | Address | Unknown | + + + | Phone | Unavailable | + + + Support + + + + + | Name | Relationship | Address | Phone | + + + + + | Juanita Espinal | ECON | [address] | | | | | [place], [place] | | | | | [address] | | + + + + + Care Team Providers + +------+ + | Care Station Baggage Agent Name | Role | Phone | + [...] | | | [address] | [place] [address] | | | | | [place] [address] | | | | | | [phone] | | | +--------+ + + + [...] for comparison only - no result from [facility]. | | + + + + +---------+ + + | Performing | Address | City/State/Zipcode | Phone Number | | Organization | | | | + +---------+ + + | [facility] | | | | + +---------+ + + documented in this encounter Visit Diagnoses Not on filedocumented in this encounter"
--- OUTSIDE RECORDS SUMMARY | ~2020-04-03 | XMS | Encounter Summary ---
Demographics + + + | Address | [address] | | | [place] [address] | + + + | Home Phone [...] Organization | [facility] | | | and [place] | + + + | Address | Unknown | + + + | Phone | Unavailable | + + + Support + + + + + | Name | Relationship | Address | Phone | + + + + + | Juanita Espinal | ECON | [address] | | | | | [place] | | | | | [address] | | + + + + + Care Team Providers + +------+ + | Care Video Games Mechanic Name | Role | Phone | + +------+ + | Hemanth Lima | PCP | | | MD | | | + +------+ + Encounter Details +--------+ + + + + | Date | Type | Department | Care Team | Description | +--------+ + + + + | 08/12/ | Hospital | [facility] | Jeffry France | Osteoporosis | | 2016 | Encounter | MED CTR MAMMOGRAPHY | [address] | | | | | [address] | | | | | | [place], [place] | [place] [address] | | | | | [address] | [phone] | | | | | [phone] | | | +--------+ + + + [...] HISTORY: OSTEOPOROSIS. COMPARISON: None. PROTOCOL: Bone | [facility] | | mineral density was calculated with [...] and | | | Signed by: Jalen Unger MD Electronically signed: 08/12/2016 11:51 | | [...] [address] | [place] | [phone] | | [facility] | | [address] | | | - IMAGING | | | | + + + + + documented in this encounter Visit Diagnoses + + | Diagnosis | + + | Osteoporosis Osteoporosis, unspecified | + + documented in this encounter"
--- OUTSIDE RECORDS SUMMARY | ~2020-04-03 | XMS | Encounter Summary ---
Demographics + + + | Address | [address] | | | [place] [address] | + + + | Home Phone | | + + + | Preferred Language | Unknown | + + + | Marital Status | | + + + | Denominational Affiliation | 1041 | + + + | Race | Unknown | + + + | Ethnic Group | Unknown | + + + Author + + + | Author | [facility] | | | and [place] | + + + | Organization | [facility] | | | and [place] | + + + | Address | Unknown | + + + | Phone | Unavailable | + + + Support + + + + + | Name | Relationship | Address | Phone | + + + + + | Juanita Espinal | ECON | [address] | | | | | [place] | | | | | [address] | | + + + + + Care Team Providers + +------+ + | Care Mental Health Nurse Name | Role | Phone | + +------+ + | Hemanth Lima PCP | | | MD | | | + +------+ + Encounter Details +--------+ + + + + | Date | Type | Department | Care Team | Description | +--------+ + + + + | 06/30/ | Orders Only | [facility] | [facility] | Stenosis, spinal, | | 2016 | | NEUROSURGERY [address] | [address] | lumbar (Primary Dx) | | | | [address] | [address] | | | | | [place], [place] | [place] [address] | | | | | [address] | [phone] | | | | | [phone] | | | +--------+ + + + [...] 4 + | Imaging | Routin | Stenosis, spinal, | Expected: 07/10/2016 | | Vw | | e | lumbar | (Approximate), | | | | | | Expires: 06/29/2017 | + +---------+--------+ + + documented as of this encounter Visit Diagnoses + + | Diagnosis | + + | Stenosis, spinal, lumbar - Primary Spinal stenosis, lumbar region, without neurogenic | | claudication | + + documented in this encounter"
--- OUTSIDE RECORDS SUMMARY | ~2020-04-03 | XMS | Encounter Summary ---
Demographics + + + | Address | [address] | | | [place] [address] | + + + | Home Phone [...] Organization | [facility] | | | and [place] | + + + | Address | Unknown | + + + | Phone | Unavailable | + + + Support + + + + + | Name | Relationship | Address | Phone | + + + + + | Juanita Espinal | ECON | [address] | | | | | [place] | | | | | [address] | | + + + + + Care Team Providers + +------+ + | Care Barrel Filler Head Name | Role | Phone | + +------+ + | Hemanth Lima PCP | | | MD | | | + +------+ + Encounter Details +--------+ + + + + | Date | Type | Department | Care Team | Description | +--------+ + + + + | 08/13/ | Hospital | [facility] | Jeffry France | Hand weakness; | | 2016 | Encounter | MED CTR XRAY [address] | [address] | Hyperreflexia | | | | [place] | [address] | | | | | [place] [address] | [place] [address] | | | | | [phone] | [phone] | | | | | | | [...] odontoid views of the cervical spine | [facility] | | COMPARISON: Cervical spine MRI 08/07/2016 [...] [address] | [place] | [phone] | | [facility] | | [address] | | | - IMAGING | | | | + + + + + documented in this encounter Visit Diagnoses + + | Diagnosis | + + | Hand weakness Muscle weakness (generalized) | + + | Hyperreflexia Abnormal reflex | + + documented in this encounter"
--- OUTSIDE RECORDS SUMMARY | ~2020-04-03 | XMS | Encounter Summary ---
Demographics + + + | Address | [address] | | | [place] [address] | + + + | Home Phone | | + + + | Preferred Language | Unknown | + + + | Marital Status | | + + + | Druze Affiliation | 1041 | + + + | Race | Unknown | + + + | Ethnic Group | Unknown | + + + Author + + + | Author | [facility] | | | and [place] | + + + | Organization | [facility] | | | and [place] | + + + | Address | Unknown | + + + | Phone | Unavailable | + + + Support + + + + + | Name | Relationship | Address | Phone | + + + + + | Juanita Espinal | ECON | [address] | | | | | [place] | | | | | [address] | | + + + + + Care Team Providers + +------+ + | Care Dust Sampler Name | Role | Phone | + +------+ + | Hemanth Lima PCP | | | MD | | | + +------+ + Encounter Details +--------+ + + + + | Date | Type | Department | Care Team | Description | +--------+ + + + + | 06/30/ | Orders Only | [facility] | Cam Francelas | Stenosis, spinal, | | 2016 | | NEUROSURGERY [address] | [address] | lumbar (Primary Dx) | | | | [address] | [address] | | | | | [place], [place] | [place] [address] | | | | | [address] | [phone] | | | | | [phone] | | | +--------+ + + + [...]
--- OUTSIDE RECORDS SUMMARY | ~2020-04-03 | XMS | Encounter Summary ---
Demographics + + + | Address | [address] | | | [place] [address] | + + + | Home Phone | | + + + | Preferred Language | Unknown | + + + | Marital Status | | + + + | Religion Affiliation | 1041 | + + + | Race | Unknown | + + + | Ethnic Group | Unknown | + + + Author + + + | Author | [facility] | | | and [place] | + + + | Organization | [facility] | | | and [place] | + + + | Address | Unknown | + + + | Phone | Unavailable | + + + Support + + + + + | Name | Relationship | Address | Phone | + + + + + | Juanita Espinal | ECON | [address] | | | | | [place] | | | | | [address] | | + + + + + Care Team Providers + +------+ + | Care In Service Educator Name | Role | Phone | + +------+ + | Hemanth Lima PCP | | | MD | | | + +------+ + Reason for Visit +--------+ + | Reason | Comments | +--------+ + | Other | post injection symptoms | +--------+ + Encounter Details +--------+ + + + + | Date | Type | Department | Care Team | Description | +--------+ + + + + | 08/22/ | Telephone | [facility] | Piotr Villaseñor | Other (post | | 2016 | | PHYSIATRY [address] | [address] | injection symptoms) | | | | [address] | [place], [place] | | | | | [place], [place] | [address] | | | | | [address] | | | | | | [phone] | | | +--------+ + + + [...]
--- OUTSIDE RECORDS SUMMARY | ~2020-04-03 | XMS | Encounter Summary ---
Demographics + + + | Address | [address] | | | [place] [address] | + + + | Home Phone [...] | Organization | [facility] | | | and [place] | + + + | Address | Unknown | + + + | Phone | Unavailable | + + + Support + + + + + | Name | Relationship | Address | Phone | + + + + + | Juanita Espinal | ECON | [address] | | | | | [place] | | | | | [address] | | + + + + + Care Team Providers + +------+ + | Care Knife Setter Grinder Machine Name | Role | Phone | + [...] + + | 06/29/ | Office | [facility] | [place], [place]ry | S/P lumbar fusion | | 2017 | Visit | NEUROSURGERY [address] | [address] | (Primary Dx); | | | | [address] | [address] | Spondylolisthesis of | | | | [place], [place] | [place] [address] | lumbar region; | | | | [address] | [phone] | Lumbar facet | | | | [phone] | | arthropathy; | | | | [...] encounter Patient Instructions Patient Instructions Sasha Lopez, Java Technical Architect - 06/29/2017 9:00 AM PDTI would li [...] from the original. Jeffry France PA-C [address] [facility], [address] [place] [address] FAX: NEUROSURGERY FOLLOW-UP CHIEF COMPLAINT: [...] Date Acute pansinusitis Atrial fibrillation ([facility]) 08-18-2016 Atypical chest pain Bilateral leg pain Contusion of knee with skin surface intact Right Anterior COPD (chronic obstructive pulmonary disease) ([facility]) Hyperlipoproteinemia type Li-a Impacted cerumen of right ear Low back pain Lumbar foraminal stenosis 08/13/2016 Lumbar herniated disc L1/T2 Left Lumbar neuritis L3-L4, L4-L5, L5/S1 Lumbar spondylosis Lumbar stenosis Moderate major depression, single episode ([facility]) Neoplasm of uncertain behavior of skin PONV [...]
--- OUTSIDE RECORDS SUMMARY | ~2020-04-03 | XMS | Encounter Summary ---
Demographics + + + | Address | [address] | | | [place] [address] | + + + | Home Phone [...] | Organization | [facility] | | | and [place] | + + + | Address | Unknown | + + + | Phone | Unavailable | + + + Support + + + + + | Name | Relationship | Address | Phone | + + + + + | Juanita Espinal | ECON | [address] | | | | | [place] | | | | | [address] | | + + + + + Care Team Providers + +------+ + | Care Trauma Director Name | Role | Phone | [...] fusion Gait | PA-C [address] | [place] | | | | n | abnormality | [address] | [place], | | | | | | [address] | [place] [address] | | | | | | [place], | Phone: | | | | | | [place] [address] | [phone] | | | | | | Phone: | Fax: | | | | | | [phone] | [phone] | | | | | | Fax: | | | | | | | [phone] | | +--------+ + + + + [...] 50 | abnormality | | | | [place], [place] | [place], [place] | | | | | [address] | [address] | | | | | [phone] | | | +--------+ + + + [...]
--- OUTSIDE RECORDS SUMMARY | ~2020-04-03 | XMS | Encounter Summary ---
Demographics + + + | Address | [address] | | | [place] [address] | + + + | Home Phone | | + + + | Preferred Language | Unknown | + + + | Marital Status | | + + + | Latter-Day Affiliation | 1041 | + + + | Race | Unknown | + + + | Ethnic Group | Unknown | + + + Author + + + | Author | [facility] | | | and [place] | + + + | Organization | [facility] | | | and [place] | + + + | Address | Unknown | + + + | Phone | Unavailable | + + + Support + + + + + | Name | Relationship | Address | Phone | + + + + + | Juanita Espinal | ECON | [address] | | | | | [place] | | | | | [address] | | + + + + + Care Team Providers + +------+ + | Care Infection Prevention Practitioner Name | Role | Phone | + +------+ + | Hemanth Lima PCP | | | MD | | | + +------+ + Reason for Visit + + + | Reason | Comments | + + + | Follow-up | Review MRI and XRay | + + + Encounter Details +--------+---------+ + + + | Date | Type | Department | Care Team | Description | +--------+---------+ + + + | 10/14/ | Office | [facility] | Cam Francelas | Spondylolisthesis of | | 2016 | Visit | NEUROSURGERY [address] | [address] | lumbar region | | | | [address] | [address] | (Primary Dx); Other | | | | [place], [place] | [place] [address] | spondylosis, lumbar | | | | [address] | [phone] | region; | | | | [phone] | | Osteoporosis; Lumbar | | | | | | foraminal stenosis; | | | | | | Lumbar | | | | | | radiculopathy; | | | | | | Spondylosis of | | | | | | cervical joint | | | | | | without myelopathy; | | | | | | Foraminal stenosis | | | | | | of cervical region | +--------+---------+ + + + Social [...] + + + | Blood Pressure | 157/81 | 10/14/2016 10:04 AM | | | | | PST | | + + + + + | Pulse | 64 | 10/14/2016 10:04 AM | | | | | PST [...] + + + + | Weight | 64 kg (141 lb 3.2 | 10/14/2016 10:04 AM | | | | oz) | PST | | + + + + + | Height | 165.1 cm (5' 5") | 10/14/2016 10:04 AM | | | | | PST | | + + + + + | Body Mass Index | 23.5 | 10/14/2016 10:04 AM | | | | | PST | | + + + + + documented in this encounter Progress Notes Jefrfy France PA-C - 10/14/2016 10:52 AM PSTFormatting of this note might be differ ent from the original. Jeffry France PA-C [address] [facility], [address] [place], [place] [address] FAX: NEUROSURGERY HISTORY AND PHYSICAL EXAMINATION CHIEF COMPLAINT: Chief Complaint Patient presents with Follow-up Review MRI and XRay HISTORY OF PRESENT ILLNESS: The patient is a 71 y.o. female who is previously seen in our office with with the complaint of back and bilateral leg pain symptoms that began Many years ago. Patient subsequently had a cervical MRI and x-rays. She was also sent to physiatry. The patient had a bone density study performed as well. She is here to review review the r esults. Since we saw her last she also had an episode of atrial fibrillation. The patient had S1 epidural steroid injections [...] right ear COPD (chronic obstructive pulmonary disease) ([facility]) Contusion of knee with skin surface intact Right Anterior Lumbar herniated disc L1/T2 Left Hyperlipoproteinemia type Li-a Spondylolisthesis of lumbar region L3/L4, L4/L5 Moderate major depression, single episode ([facility]) Primary localized osteoarthritis of left hip Rheumatoid arthritis involving multiple sites ([facility]) Sacroiliac pain Thoracic neuritis T1-T2 Lumbar neuritis L3-L4, L4-L5, L5/S1 Lumbar spondylosis Neoplasm of uncertain behavior of skin Spinal stenosis, lumbar Lumbar canal with neurogenic claudication Lumbar foraminal stenosis 08/13/2016 Atrial fibrillation ([facility]) 08-18-2016 PAST SURGICAL HISTORY: Past Surgical History Procedure Laterality Date [facility]ste[facility] 04[facility] Cataract surgery 2008 Dr. Andrew [...] + rheumatoid arthritis. PHYSICAL EXAMINATION: Blood pressure 157/81, pulse 64, height 1.651 m (5' 5"), weight 64.048 kg (141 lb 3.2 oz). Body mass index is 23.5 kg/(m^2). GENERAL: Dorothea Calvo is in no [...] has no apparent deficits with short or terminal gauger supervisor memory. CRANIAL NERVES: Fundoscopic Exam: The optic [...] Intrinsics 5 5 Ulnar Intrinsics 5 5 Java Front End Web Developer Strength 4+ 4+ Hip Flexion 5 5 [...] Name Primary? Spondylolisthesis of lumbar region Yes Other spondylosis, lumbar region Osteoporosis Lumbar foraminal stenosis Lumbar radiculopathy Spondylosis of cervical joint without myelopathy Foraminal stenosis of cervical region GENERAL DIAGNOSES: Past Medical History Diagnosis Date TB (tuberculosis) Lumbar stenosis Low back pain Bilateral leg pain Acute pansinusitis Atypical chest pain Impacted cerumen of right ear COPD (chronic obstructive pulmonary disease) ([facility]) Contusion of knee with skin surface intact Right Anterior Lumbar herniated disc L1/T2 Left Hyperlipoproteinemia type Li-a Spondylolisthesis of lumbar region L3/L4, L4/L5 Moderate major depression, single episode ([facility]) Primary localized osteoarthritis of left hip Rheumatoid arthritis involving multiple sites ([facility]) Sacroiliac pain Thoracic neuritis T1-T2 Lumbar neuritis L3-L4, L4-L5, L5/S1 Lumbar spondylosis Neoplasm of uncertain behavior of skin Spinal stenosis, lumbar Lumbar canal with neurogenic claudication Lumbar foraminal stenosis 08/13/2016 Atrial fibrillation (H[facility]) 08-18-2016 PLAN: Dorothea Calvo presented today, and it was a pleasure seeing this patient and ferdinand g her neurologic problems. The patient continue to work on her smoking cessation. She has changes of her cervical spi ne but no severe stenosis. She is most troubled though by her low back symptoms. She had i nitial significant improvements after her injection but unfortunately had no lasting relief. Patient is confident that she can quit smoking. Today we discussed the possibility of L2- S1 lumbar fusion with combined anterior and posterior approach. Once the patient has quit s moking she will contact our office and she will set up an appointment to follow-up with me t o check on her progress at that time we can make further recommendations about possible surg claudia on her lumbar spine. She should continue working with her primary care provider as dire cted I am recommending that she begin bracing now to help and assist with her current pain sympt oms. The bracing will continue after surgery as discussed with the patient. ELECTRONICALLY SIGNED BY: Jeffry France PA-C, 10/14/2016 10:52 documented in this encounter Plan of Treatment Not on filedocumented as of this encounter Visit Diagnoses + + | Diagnosis | + + | Spondylolisthesis of lumbar region - Primary Acquired spondylolisthesis | + + | Other spondylosis, lumbar region | + + | Osteoporosis Osteoporosis, unspecified | + + | Lumbar foraminal stenosis Spinal stenosis, lumbar region, without neurogenic | | claudication | + + | Lumbar radiculopathy Thoracic or lumbosacral neuritis or radiculitis, unspecified | + + | Spondylosis of cervical joint without myelopathy Cervical spondylosis without | | myelopathy | + + | Foraminal stenosis of cervical region Spinal stenosis in cervical region | + + documented in this encounter
--- OUTSIDE RECORDS SUMMARY | ~2020-04-03 | XMS | Encounter Summary ---
Demographics + + + | Address | [address] | | | [place] [address] | + + + | Home Phone | | + + + | Preferred Language | Unknown | + + + | Marital Status | | + + + | Sikh Affiliation | 1041 | + + + | Race | Unknown | + + + | Ethnic Group | Unknown | + + + Author + + + | Author | [facility] | | | and [place] | + + + | Organization | [facility] | | | and [place] | + + + | Address | Unknown | + + + | Phone | Unavailable | + + + Support + + + + + | Name | Relationship | Address | Phone | + + + + + | Juanita Espinal | ECON | [address] | | | | | [place] | | | | | [address] | | + + + + + Care Team Providers + +------+ + | Care Global Supply Chain Director Name | Role | Phone | [...] | | [address] | [place] [address] | | | | | [place] | [phone] | | | | | [address] | | | | | | [phone] | | | +--------+ + + + [...]
--- OUTSIDE RECORDS SUMMARY | ~2020-04-03 | XMS | Encounter Summary ---
Demographics + + + | Address | [address] | | | [place] [address] | + + + | Home Phone | | + + + | Preferred Language | Unknown | + + + | Marital Status | | + + + | Adventism Affiliation | 1041 | + + + | Race | Unknown | + + + | Ethnic Group | Unknown | + + + Author + + + | Author | [facility] | | | and [place] | + + + | Organization | [facility] | | | and [place] | + + + | Address | Unknown | + + + | Phone | Unavailable | + + + Support + + + + + | Name | Relationship | Address | Phone | + + + + + | Juanita Espinal | ECON | [address] | | | | | [place] | | | | | [address] | | + + + + + Care Team Providers + +------+ + | Care Wire Harness Design Engineer Name | Role | Phone | + +------+ + | Hemanth Lima PCP | | | MD | | | + +------+ + Encounter Details +--------+ + + + + | Date | Type | Department | Care Team | Description | +--------+ + + + + | 05/01/ | Hospital | [facility] | Edin Lynn MD | Lumbar | | 2017 | Encounter | MED CTR XRAY [address] | [address] | radiculopathy; | | | | [place] | [facility] [place] [address] | Spondylolisthesis of | | | | [place] [address] | [phone] | lumbar region; | | | | [phone] | | Lumbar facet | | | | | Prince Lewis MD | arthropathy; | | | | | [address] | Foraminal stenosis | | | | | [place], [place] | of lumbar region; | | | | | [address] | Other spondylosis, | | | | [...] + | [address] | [address] | [place] | [phone] | | [facility] | | [address] | | | - IMAGING | | [...]
--- OUTSIDE RECORDS SUMMARY | ~2020-04-03 | XMS | Encounter Summary ---
Demographics + + + | Address | [address] | | | [place] [address] | + + + | Home Phone | | + + + | Preferred Language | Unknown | + + + | Marital Status | | + + + | Muslim Affiliation | 1041 | + + + | Race | Unknown | + + + | Ethnic Group | Unknown | + + + Author + + + | Author | [facility] | | | and [place] | + + + | Organization | [facility] | | | and [place] | + + + | Address | Unknown | + + + | Phone | Unavailable | + + + Support + + + + + | Name | Relationship | Address | Phone | + + + + + | Juanita Espinal | ECON | [address] | | | | | [place] | | | | | [address] | | + + + + + Care Team Providers + +------+ + | Care Insurance Coordinator Name | Role | Phone | + +------+ + | Hemanth Lima PCP | | | MD | | | + +------+ + Encounter Details +--------+ + + + + | Date | Type | Department | Care Team | Description | +--------+ + + + + | 06/29/ | Hospital | [facility] | Edin Lynn MD | Status post lumbar | | 2018 | Encounter | MED CTR XRAY [address] | [address] | spinal fusion | | | | [place] | [place] [address] | | | | | [place] [address] | [phone] | | | | | [phone] | | | +--------+ + + + [...] + | Performing | Address | City/State/[facility] | Phone Number | | Organization | | | | + +---------+ + + | [facility] | | | | + +---------+ + + documented in this encounter Visit Diagnoses + + | Diagnosis | + + | Status post lumbar spinal fusion Arthrodesis status | + + documented in this encounter"
--- OUTSIDE RECORDS SUMMARY | ~2020-04-03 | XMS | Encounter Summary ---
Demographics + + + | Address | [address] | | | [place] [address] | + + + | Home Phone [...] | [facility] | | | and [place] | + + + | Address | Unknown | + + + | Phone | Unavailable | + + + Support + + + + + | Name | Relationship | Address | Phone | + + + + + | Juanita Espinal | ECON | [address] | | | | | [place] | | | | | [address] | | + + + + + Care Team Providers + +------+ + | Care Excavation Laborer Name | Role | Phone | + [...] | | [address] | [place] [address] | | | | | [place] | [phone] | | | | | [address] | | | | | | [phone] | | | +--------+ + + + [...]
--- OUTSIDE RECORDS SUMMARY | ~2020-04-03 | XMS | Encounter Summary ---
Demographics + + + | Address | [address] | | | [place] [address] | + + + | Home Phone | | + + + | Preferred Language | Unknown | + + + | Marital Status | | + + + | Oriental Orthodox Affiliation | 1041 | + + + | Race | Unknown | + + + | Ethnic Group | Unknown | + + + Author + + + | Author | [facility] | | | and [place] | + + + | Organization | [facility] | | | and [place] | + + + | Address | Unknown | + + + | Phone | Unavailable | + + + Support + + + + + | Name | Relationship | Address | Phone | + + + + + | Juanita Espinal | ECON | [address] | | | | | [place] | | | | | [address] | | + + + + + Care Team Providers + +------+ + | Care Winch Runner Name | Role | Phone | [...] + + | 05/01/ | Office | [facility] | Cam Francelas | Lumbar radiculopathy | | 2017 | Visit | NEUROSURGERY [address] | [address] | (Primary Dx); | | | | [address] | [address] | Spondylolisthesis of | | | | [place], [place] | [place] [address] | lumbar region; | | | | [address] | [phone] | Lumbar facet | | | | [phone] | | arthropathy; | | | | [...] 11:30 AM PDT Jeffry France PA-C [address] [facility], [address] [place] [address] FAX: NEUROSURGERY HISTORY AND PHYSICAL EXAMINATION CHIEF [...] History: Diagnosis Date Acute pansinusitis Atrial fibrillation ([facility]) 08-18-2016 Atypical chest pain Bilateral leg pain Contusion of knee with skin surface intact Right Anterior COPD (chronic obstructive pulmonary disease) ([facility]) Hyperlipoproteinemia type Li-a Impacted cerumen of right ear Low back pain Lumbar foraminal stenosis 08/13/2016 Lumbar herniated disc L1/T2 Left Lumbar neuritis L3-L4, L4-L5, L5/S1 Lumbar spondylosis Lumbar stenosis Moderate major depression, single episode ([facility]) Neoplasm of uncertain behavior of skin Primary localized osteoarthritis of left hip Rheumatoid arthritis involving multiple sites ([facility]) Sacroiliac pain Spinal stenosis, lumbar Lumbar canal with neurogenic claudication Spondylolisthesis of lumbar region L3/L4, L4/L5 TB (tuberculosis) Thoracic neuritis T1-T2 PAST SURGICAL HISTORY: Past Surgical History: Procedure Laterality Date APPENDECTOMY Cataract surgery 2008 Dr. Andrew Maldonado HYSTERECTOMY 04/1971 [facility] CURRENT MEDICATIONS: Current Outpatient Prescriptions Medication Sig [...] has no apparent deficits with short or retirement memory. CRANIAL NERVES: Fundoscopic Exam: The optic [...] Intrinsics 5 5 Ulnar Intrinsics 5 5 Artist Manager Strength 4+ 4+ Hip Flexion 5 5 [...] History: Diagnosis Date Acute pansinusitis Atrial fibrillation ([facility]) 08-18-2016 Atypical chest pain Bilateral leg pain Contusion of knee with skin surface intact Right Anterior COPD (chronic obstructive pulmonary disease) ([facility]) Hyperlipoproteinemia type Li-a Impacted cerumen of right [...]
--- OUTSIDE RECORDS SUMMARY | ~2020-04-03 | XMS | Encounter Summary ---
Demographics + + + | Address | [address] | | | [place] [address] | + + + | Home Phone [...] | Organization | [facility] | | | and [place] | + + + | Address | Unknown | + + + | Phone | Unavailable | + + + Support + + + + + | Name | Relationship | Address | Phone | + + + + + | Juanita Espinal | ECON | [address] | | | | | [place] | | | | | [address] | | + + + + + Care Team Providers + +------+ + | Care Supervisor Coil Winding Name | Role | Phone | + [...] [address] | | | | | [place], [place] | [place] [address] | | | | | [address] | [phone] | | | | | [phone] | | | +--------+ + + + [...]
--- OUTSIDE RECORDS SUMMARY | ~2020-04-03 | XMS | Encounter Summary ---
Demographics + + + | Address | [address] | | | [place] [address] | + + + | Home Phone | | + + + | Preferred Language | Unknown | + + + | Marital Status | | + + + | Spiritism Affiliation | 1041 | + + + | Race | Unknown | + + + | Ethnic Group | Unknown | + + + Author + + + | Author | [facility] | | | and [place] | + + + | Organization | [facility] | | | and [place] | + + + | Address | Unknown | + + + | Phone | Unavailable | + + + Support + + + + + | Name | Relationship | Address | Phone | + + + + + | Juanita Espinal | ECON | [address] | | | | | [place] | | | | | [address] | | + + + + + Care Team Providers + +------+ + | Care Grounds Cleaner Name | Role | Phone | + [...] | | | | | discharge | [address] [place] [address] | [address] [place] [address] | | | | | follow-up | [address] | [address] | | | | | Atrial | [place], | [place], | | | | | fibrillation | [place] [address] | [place] [address] | | | | | with RVR | Phone: | Phone: | | | | | (HCC) | [phone] | [phone] | | | | | Procedures | Fax: | Fax: | | | | | [facility] | [phone] | [phone] | | | | | CLINIC. | [...] + + | 07/17/ | Office | [facility] | Sarah Sears, | Atrial fibrillation, | | 2017 | Visit | CARDIOLOGY [address] | MD [address] | unspecified type | | | | [address], | [place], | ([facility]) (Primary Dx) | | | | [place] [address] | [place] [address] | | | | | [phone] | [phone] | | | | | | | [...] lives by herself in her home in [place], [place]. 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 Referred to bankruptcy legal assistant. ASSESSMENT: 1. Persistent atrial fibrillation with rapid [...] She is in a class I of [place] [employer] functional class. There is trace swelling on left ankle on phy sical examination. She is now on rhythm control strategy with amiodarone Risk of stroke is reviewed today; herrisk factors are Hx of HTN (1), Age 65 to 74 (1) a nd Female Gender (1), giving hayde [id number] 3, estimating a 3= 3.2%risk of stroke [...] reviewed and edited this note. Alejandra Alfaro [facility] 07/17/2017 I, Sarah Sears MD, personally performed the services described in this documentation, as scribed in my presence and it is both accurate and complete. Alejandra Alfaro [facility] 07/17/2017 8:39 Electronically signed by: Sarah Sears MD [facility] 07/17/2017 Portions of this chart may have been created with [employer] voice recognition software. Occasi onal wrong-word or [...] MD | | | | | | ([id number]) on 07/17/2017 | | | | | [...]
--- OUTSIDE RECORDS SUMMARY | ~2020-04-03 | XMS | Encounter Summary ---
Demographics + + + | Address | [address] | | | [place] [address] | + + + | Home Phone | | + + + | Preferred Language | Unknown | + + + | Marital Status | | + + + | Druze Affiliation | 1041 | + + + | Race | Unknown | + + + | Ethnic Group | Unknown | + + + Author + + + | Author | [facility] | | | and [place] | + + + | Organization | [facility] | | | and [place] | + + + | Address | Unknown | + + + | Phone | Unavailable | + + + Support + + + + + | Name | Relationship | Address | Phone | + + + + + | Juanita Espinal | ECON | [address] | | | | | [place] | | | | | [address] | | + + + + + Care Team Providers + +------+ + | Care Supervisor Facepiece Line Name | Role | Phone | + +------+ + | Hemanth Lima PCP | | | MD | | | + +------+ + Encounter Details +--------+---------+ + + + | Date | Type | Department | Care Team | Description | +--------+---------+ + + + | 07/23/ | Surgery | [facility] | Jaswant Dolan, | [facility] Left 2nd | | 2017 | | MED CTR OR INTRA OP | DPM [address] | Metatarsal Fracture | | | | [address] | [place], [place] | | | | | [place], [place] | [address] | | | | | [address] | [phone] | | | | | [phone] | | | +--------+---------+ + + + [...] You can't be awakened Date Last Reviewed: 09/02/201619993042-5222 [employer]. [address] [place] [address]. All righ ts reserved. This information is [...] [address] | [place] | [phone] | | [facility] | | [address] | | | - LABORATORY | | [...] (H) | 70 - 109 mg/dL | [facility] | | | | | | [facility] | | | | | | MEDICAL | | | | | | CENTER - | | | | | | LABORATORY | | + + + + + + | BUN | 9 | 7 - 18 mg/dL | [facility] | | | | | | [facility] | | | | | | MEDICAL | | | | | | CENTER - | | | | | | LABORATORY | | + + + + + + | Creatinine | 0.61 | 0.60 - 1.30 | [place] | | | | | mg/dL | [facility] | | | | | | MEDICAL | | | | | | CENTER - | | | | | | LABORATORY | | + + + + + + | eGFR if not | >60Comment: GLOMERULAR | >=60 | [facility] | | | | FILTRATION | mL/min/1.73m2 | [facility] | | | SLOVENIAN | RATE,ESTIMATED | | MEDICAL | | | | mL/min/1.54n1Ctlz than | | CENTER - | | [...] [address] | [place] | [phone] | | [facility] | | [address] | | | - LABORATORY | | [...] | | | | TRACIE RAMOS MD ([id number]) | | | | | | on [...] ONCE PRN, Wheezing, | | | Starting [facility] [place] [facility] 07/23/17 at 1429, For | | [...] ONCE PRN, Wheezing, | | | Starting [facility] [place] [facility] 07/23/17 at 1129, For | | | 1 dose, Pre-op | | + +---+ | | | + +---+ + +-------+ +--------+---+ + | bupivacaine (MARCAINE) 0.5% | Given | 07/23/20 | 10 mLs | | Surgical | | injection PRN, Starting [facility] [place] [facility] | | 17 1:24 | | | [...] glucose < 50, | | | Starting [facility] [place] [facility] 07/23/17 at 1129, | | | [...] | | Surgical | | PRN, Starting [facility] [place] [facility] 07/23/17 at 1324, | | 17 1:24 | | | Site | | Intra-op | | PM PDT | | | | + +-------+ +--------+---+ + + +---+ | | | + +---+ | ondansetron (ZOFRAN ODT) | | | disintegrating tablet 4 mg 4 mg, | | | Oral, EVERY 6 HOURS PRN, Nausea, | | | Vomiting, Starting [facility] [place] [facility] 07/23/17 at | | | 1429, First [...]
--- OUTSIDE RECORDS SUMMARY | ~2020-04-03 | XMS | Encounter Summary ---
Demographics + + + | Address | [address] | | | [place] [address] | + + + | Home Phone | | + + + | Preferred Language | Unknown | + + + | Marital Status | | + + + | Voodoo Affiliation | 1041 | + + + | Race | Unknown | + + + | Ethnic Group | Unknown | + + + Author + + + | Author | [facility] | | | and [place] | + + + | Organization | [facility] | | | and [place] | + + + | Address | Unknown | + + + | Phone | Unavailable | + + + Support + + + + + | Name | Relationship | Address | Phone | + + + + + | Juanita Espinal | ECON | [address] | | | | | [place] | | | | | [address] | | + + + + + Care Team Providers + +------+ + | Care Margarine Churn Operator Name | Role | Phone | [...] | | | | | | | TX ARTHDSIS | | | | | | | POST/POSTERO | | | | | | | LATRL/POSTIN | | | | | | | TERBODY | | | | | | | LUMBAR TX | | | | | | | SPINE | | | | | | | FUSN,POST | | | | | | | TECH,EA | | | | | | | ADDNL SGMT | | | | | | | TX SPINE | | | | | | | FUSN,POST | | | | | | | TECH,EA | | | | | | | ADDNL SGMT | | | | | | | TX SPINE | | | | | | | FUSN,POST | | | | | | | TECH,EA | | | | | | | ADDNL SGMT | | | | | | | TX LUMBAR | | | | | | | SPINE | | | | | | | FUSION,ANTER | | | | | | | APPRCH TX | | | | | | | SPINAL | | | | | | | FUSION,ANT,E | | | | | | | A ADNL LEVEL | | | | | | | TX SPINAL | | | | | | [...] | | | | | | SEG TX | | | | | | | LAMINEC/FACE | | | | | | | TECT/FORAMIN | | | | | | | ,EACH ADDNL | | | | | | | TX | | | | | | | LAMINEC/FACE | | | | | | | TECT/FORAMIN | | | | | | | ,EACH ADDNL | | | | | | | TX INSJ | | | | | | | BIOMCHN DEV | | | | | | | INTERVERTEBR | | | | | | | AL DSC SPC | | | | | | | W/ARTHRD TX | | | | | | | INSJ | | | | | | | BIOMCHN DEV | | | | | | | INTERVERTEBR | | | | | | | AL DSC SPC | | | | | | | W/ARTHRD TX | | | | | | | INSJ | | | | | | | BIOMCHN DEV | | | | | | | INTERVERTEBR | | | | | | | AL DSC SPC | | | | | | | W/ARTHRD TX | | | | | | | [...] + + + + | 05/26/ | Anesthesia | [facility] | Carroll Serna, | | | 2017 | Event | MED CTR OR INTRA OP | DO [address] | | | | | [address] | [place] | | | | | [place] | [address] | | | | | [address] | | | | | | [phone] | Serafin Huerta, | | | | | | MD [address] | | | | | | [place] | | | | | | [address] | | | | | | | | +--------+ + + + + Anesthesia Record + + + + + | Procedure Name | Responsible | Anesthesia Start | Anesthesia Stop Time | | | Anesthesiologist | Time | | + + + + + | L2-3, L3-4, L4-5 | Carroll Serna DO | 05/26/17 0756 | 05/26/17 1223 | | Lateral Anterior | | | | | Interbody Fusion; | | | | | L5-S1 Transforaminal | | | | | Lumbar Interbody | | | | | Fusion; Posterior | | | | | Fusion @ L2-3, L3-4, | | | | | L4-5, L5-S1 | | | | | (Anterior Back) | | | | + + + + + +----+---+ + + | Da | T | Event | Comment | | te | i | | | | | m | | | | | e | | | +----+---+ + + | 07 | 0 | | | | /1 | 7 | | | | 1/ | 1 | | | | 20 | 4 | | | | 17 | | | | +----+---+ + + | | 0 | An Checkout | Pre-use anesthesia machine/equipment checkout. | | | 7 | | | | | 5 | | | | | 6 | | | +----+---+ + + | | 0 | An Start | Reassessment prior to anesthesia induction/procedure. | | | 7 | | | | | 5 | | | | | 6 | | | +----+---+ + + | | 0 | Preoxygenat | | | | 7 | ed | | | | 5 | | | | | 9 | | | +----+---+ + + | | 0 | Pre-Procedu | | | | 7 | ral Timeout | | | | 5 | Completed | | | | 9 | | | +----+---+ + + | | 0 | Antibiotic | | | | 8 | Given | | | | 0 | | | | | 0 | | | +----+---+ + + | | 0 | An | | | | 8 | Induction | | | | 0 | | | | | 1 | | | +----+---+ + + | | 0 | An | | | | 8 | Intubation | | | | 0 | | | | | 2 | | | +----+---+ + + | | 0 | AN Bite | | | | 8 | Block | | | | 0 | | | | | 3 | | | +----+---+ + + | | 0 | Lathrop | | | | 8 | 43-degrees | | | | 2 | | | | | 0 | | | +----+---+ + + | | 0 | AN No | TOF 4/4 with sustained tetanus. | | | 8 | Residual | | | | 2 | NMB | | | | 4 | | | +----+---+ + + | | 0 | First | | | | 8 | Inc/Proc St | | | | 2 | | | | | 5 | | | +----+---+ + + | | 1 | Breathing | | | | 2 | Spontaneous | | | | 1 | ly | | | | 5 | | | +----+---+ + + | | 1 | Oropharynx | | | | 2 | Suctioned | | | | 1 | | | | | 5 | | | +----+---+ + + | | 1 | an stop | | | | 2 | data | | | | 1 | | | | | 6 | | | +----+---+ + + | | 1 | An Stop | Patient handed off to recovery nurse. | | | 2 | | | | | 3 | | | +----+---+ + + +------+ | Meds | +------+ + + + | Name | Total | + + + | propofol (DIPRIVAN) injection | 130 mg | | (bolus) (20 mL) | | + + + | lidocaine 2% | 80 mg | + + + | succinylcholine | 100 mg | + + + | ondansetron | 4 mg | + + + | dexamethasone | 10 mg | + + + | HYDROmorphone | 2 mg | + + + | ePHEDrine | 10 mg | + + + | ceFAZolin in saline (ANCEF) IVPB | 2 g | | 2 g | | + + + | lactated ringers (LR) infusion | 1,300 mL | + + + + + | Name | + + [...] Removal | +--------+ + + + | Urethr | 05/26/17; indicated due to | 05/26/17 0000 by | 05/26/17 1208 by | | al | specific surgical procedure; All | Candice Akbar RN | Babar Torres RN | | Cathet | elements; All elements; All | | | | er | elements; indwelling double lumen | | | | | catheter; 100% silicone; 16; | | | | | None; 1; 10; 10; tubing intact, | | | | | urethral catheter removed; | | | | | expected removal post discharge; | | | | | 07/11/17; 1208 | | | +--------+ + + + | Periph | 05/26/17; 712; Right; Mid; | 05/26/17712 by | 05/26/171999 by | | eral | Forearm; 18 gauge, 1 11/17 in | Karen Jin RN | Fiona Rincon | | IV | length; distraction, topical | | [facility] | | | anesthetic spray applied, | | | | | tolerated well, appears | | | | | comfortable; catheter/device | | | | | intact, site symptomatic; | | | | | 05/26/17; 1999 | | | +--------+ + + + | Airway | Placement Date: 05/26/17; | 05/26/17801 by | 05/27/17 0000 by | | | Placement Time: 801 (created via | Carroll Serna DO | Cassidy Mahan RN | | | procedure documentation); Mask | | | | | Ventilation: EZ; Airway Grade: 1; | | | | | Successful Technique: video | | | | | scope; Laryngoscope Blade Size: | | | | | 3; Attempts: 1; Airway Type: | | | | | endotracheal; Size: 6.5; Airway | | | | | Tube Secured At: 22; Trauma: | | | | | none; Other Equipment: stylette; | | | | | Placement Check: exhaled CO2 | | | | | detection device, bilateral chest | | | | | rise, suprasternal notch | | | | | palpation; Removal Date: 05/27/17 | | | +--------+ + + + | Read | 05/26/17; 1040; Right; flank; | 05/26/17 1040 by | 06/06/17 1408 by | | only - | healing within expectations; | Babar Torres RN | Maury Machuca RN | | | 06/06/17; 1408 | | | | Incisi | | | | | on | | | | +--------+ + + + | Read | 05/26/17; 1040; Bilateral; back; | 05/26/17 1040 by | 06/06/17 1409 by | | only - | short term use; 06/06/17; 1409 | Babar Torres RN | Maury Machuca RN | | | | | | | Incisi | | | | | on | | | | +--------+ + + + | Drain/ | 05/26/17; 1208; #1; Right; back; | 05/26/17 1208 by | 05/28/17 0900 by | | Device | collapsible closed device; 10fr | Babar Torres RN | Cassidy Mahan RN | | Site | yuniel taylor; expected removal | | | | | post discharge; 05/28/17; 0900 | | | +--------+ + + + [...] | + +--------+ + + + | ANE AIRWAY NOTE | Routin | 05/26/2017 | | Results for this | | | e | 8:08 AM | | procedure are in the | | | | PDT | | results section. | + +--------+ + + + documented in this encounter Results Anesthesia Airway Note (05/26/2017 8:08 AM PDT) + + + | Narrative | Performed At | + + + | Carroll Serna DO 05/26/2017 8:08 Anesthesia | | | Airway Placement 05/26/2017 8:02 Preprocedure check: patient | | | identified, oxygen, airway assessed, suction, airway equipment | | | checked and patient reassessment prior to induction Mask ventilation: | | | easy Successful technique: videoscope Laryngoscope blade size: | | | 3 Airway grade: 1 (Full view of glottis) Other equipment: | | | stylette Attempts: 1 Airway type: endotracheal Size: 6.5 Cuffed: | | | cuffed Route, reference point: right side of mouth Tube depth: 22 cm | | | Tube secured with: adhesive tape Trauma: none Tube placement | | | verification: bilateral chest rise, carbon dioxide detection and | | | suprasternal notch palpation Performing provider: CARROLL SERNA | | | LE Electronically Signed by: Carroll Serna DO | | | ESig date/time: 05/26/2017 8:08 | | | | | + + + + + | Procedure Note | + + | Carroll Serna DO - 05/26/2017 8:08 AM PDT Anesthesia Airway Placement05/26/2017 | | 8:02Preprocedure check: patient identified, oxygen, airway assessed, suction, airway | | equipment checked and patient reassessment prior to inductionMask ventilation: | | easySuccessful technique: videoscopeLaryngoscope blade size: 3 Airway grade: 1 (Full | | view of glottis)Other equipment: styletteAttempts: 1Airway type: endotrachealSize: | | 6.5Cuffed: cuffedRoute, reference point: right side of mouthTube depth: 22 cmTube | | secured with: adhesive tapeTrauma: noneTube placement verification: bilateral chest | | rise, carbon dioxide detection and suprasternal notch palpationPerforming provider: | | CARROLL SERNAlectronically Signed by: Carroll Serna DO | | ESig date/time: 05/26/2017 8:08 | |Airway type: endotracheal | |Size: 6.5 | |Cuffed: cuffed | |Route, reference point: right side of mouth | |Tube depth: 22 cm | |Tube secured with: adhesive tape | |Trauma: none | |Tube placement verification: bilateral chest rise, carbon dioxide detection and suprasterna l notch palpation | |Performing provider: CARROLL SERNA | | | | | |Electronically Signed by: Carroll Serna DO ESig date/time : 05/26/2017 8:08 | | | + + documented in this encounter Visit Diagnoses Not on filedocumented in this encounter Administered Medications + +--------+ +------+------+------+ | Medication Order | MAR | Action | Dose | Rate | Site | | | Action | Date | | | | + +--------+ +------+------+------+ | ceFAZolin in saline (ANCEF) | Given | 05/26/20 | 2 g | | | | IVPB 2 g 2 g, Intravenous, | | 17 8:00 | | | | | Administer over 30 Minutes, Prior | | AM PDT | | | | | to Incision, Starting Thu | | | | | | | 05/26/17 at 0616, For 1 dose, | | | | | | | Administer within 1 hour of | | | | | | | surgical incision. Keep in | | | | | | | refrigerator., Pre-op, | | | | | | | Indications: Surgical Prophylaxis | | | | | | + +--------+ +------+------+------+ +---+---+ | | | +---+---+ + +-------+ +-------+---+---+ | dexamethasone (DECADRON) 10 | Given | 05/26/20 | 10 mg | | | | mg/mL injection Intravenous, | | 17 8:02 | | | | | PRN, Starting Thu05/26/17 at | | AM PDT | | | | | 0802, Anesthesia Intra-op | | | | | | + +-------+ +-------+---+---+ +---+---+ | | | +---+---+ + +-------+ +-------+---+---+ | ePHEDrine 50 mg/mL injection | Given | 05/26/20 | 10 mg | | | | PRN, Starting Thu05/26/17 at | | 17 8:24 | | | | | 0824, Anesthesia Intra-op | | AM PDT | | | | + +-------+ +-------+---+---+ +---+---+ | | | +---+---+ + +-------+ +--------+---+---+ | HYDROmorphone (DILAUDID) 2 | Given | 05/26/20 | 0.5 mg | | | | mg/mL injection Intravenous, | | 17 11:31 | | | | | PRN, Pain, Starting Thu05/26/17 | | AM PDT | | | | | at 0759, Anesthesia Intra-op | | | | | | + +-------+ +--------+---+---+ +-------+ +--------+---+---+ | Given | 05/26/20 | 0.5 mg | | | | | 17 9:59 | | | | | | AM PDT | | | | +-------+ +--------+---+---+ | Given | 05/26/20 | 0.4 mg | | | | | 17 [...] lidocaine (PF) 2% injection | Given | 05/26/20 | 80 mg | | | | Intravenous, PRN, Starting Thu | | 17 8:01 | | | | | 05/26/17 at 0801, Anesthesia | | AM PDT | | | | | Intra-op | | | | | | + +-------+ +-------+---+---+ +---+---+ | | | +---+---+ + +-------+ +------+---+---+ | ondansetron (ZOFRAN) injection | Given | 05/26/20 | 4 mg | | | | Intravenous, PRN, Nausea, | | 17 8:02 | | | | | Vomiting, Starting 05/26/17 at | | AM PDT | | | | | 0802, Anesthesia Intra-op | | | | | | + +-------+ +------+---+---+ +---+---+ | | | +---+---+ + +-------+ +--------+---+---+ | propofol (DIPRIVAN) injection | Given | 05/26/20 | 130 mg | | | | Intravenous, PRN, Starting Tue | | 17 8:01 | | | | | 05/26/17 at 0801, Anesthesia | | AM PDT | | | | | Intra-op | | | | | | + +-------+ +--------+---+---+ +---+---+ | | | +---+---+ + +-------+ +--------+---+---+ | succinylcholine (ANECTINE) | Given | 05/26/20 | 100 mg | | | | injection Intravenous, PRN, | | 17 8:01 | | | | | Starting 05/26/17 at 0801, | | AM PDT | | | | | Anesthesia Intra-op | | | | | | + +-------+ +--------+---+---+ +---+---+ | | | +---+---+ documented in this encounter"
--- OUTSIDE RECORDS SUMMARY | ~2020-04-03 | XMS | Encounter Summary ---
Demographics + + + | Address | [address] | | | [place] [address] | + + + | Home Phone | | + + + | Preferred Language | Unknown | + + + | Marital Status | | + + + | Jewish Affiliation | 1041 | + + + | Race | Unknown | + + + | Ethnic Group | Unknown | + + + Author + + + | Author | [facility] | | | and [place] | + + + | Organization | [facility] | | | and [place] | + + + | Address | Unknown | + + + | Phone | Unavailable | + + + Support + + + + + | Name | Relationship | Address | Phone | + + + + + | Juanita Espinal | ECON | [address] | | | | | [place] | | | | | [address] | | + + + + + Care Team Providers + +------+ + | Care Community Health Program Coordinator Name | Role | Phone | + +------+ + | Hemanth Lima PCP | | | MD | | | + +------+ + Reason for Visit + + + | Reason | Comments | + + + | Records Request | | + + + Encounter Details +--------+ + + + + | Date | Type | Department | Care Team | Description | +--------+ + + + + | 07/23/ | Telephone | [facility] | Cam Franc[place]as | Records Request | | 2016 | | NEUROSURGERY [address] | [address] | | | | | [facility] [address] | | | | | [place], [place] | [place] [address] | | | | | [address] | [phone] | | | | | [phone] | | | +--------+ + + + [...] on filedocumented as of this encounter Results DEXA Bone Density [facility] [place] FX Assessment (08/12/2016 10:46 AM PDT) + + | Specimen | + + | | + + + + + | Narrative | Performed At | + + + | DEXA BONE DENSITY STUDY [facility] ASSESSMENT 08/12/2016 10:46 AM | [facility] | | HISTORY: OSTEOPOROSIS. COMPARISON: None. PROTOCOL: Bone | [facility] | | mineral density was [...] + | Jai Jeff Results In - 08/12/2016 11:54 AM PDT DEXA BONE DENSITY STUDY [facility] | | ASSESSMENT 08/12/2016 10:46 AMHISTORY: OSTEOPOROSIS.COMPARISON: [...] + | [facility] | [address] | [place], [place] | [phone] | | [facility] | | [address] | | | - IMAGING | | | | + + + + + documented in this encounter Visit Diagnoses + + | Diagnosis | + + | Osteoporosis - Primary Osteoporosis, unspecified | + + documented in this encounter"
--- OUTSIDE RECORDS SUMMARY | ~2020-04-03 | XMS | Encounter Summary ---
Demographics + + + | Address | [address] | | | [place] [address] | + + + | Home Phone | | + + + | Preferred Language | Unknown | + + + | Marital Status | | + + + | Druze Affiliation | 1041 | + + + | Race | Unknown | + + + | Ethnic Group | Unknown | + + + Author + + + | Author | [facility] | | | and [place] | + + + | Organization | [facility] | | | and [place] | + + + | Address | Unknown | + + + | Phone | Unavailable | + + + Support + + + + + | Name | Relationship | Address | Phone | + + + + + | Juanita Espinal | ECON | [address] | | | | | [place] | | | | | [address] | | + + + + + Care Team Providers + +------+ + | Care Advanced Clinical Specialist Name | Role | Phone | [...] | | encounter | [place], [place] | [address] | | | | | | [address] | Phone: | | | | | | Phone: | [phone] | | | | | | [phone] | Fax: | | | | | | Fax: | [phone] | | | | | | [phone] | | +--------+ + + + + [...] | initial | ST [place] | [place] | | | | | encounter | [place] | [address] | | | | | | [address] | Phone: | | | | | | Phone: | [phone] | | | | | | [phone] | Fax: | | | | | | Fax: | [phone] | | | | | | [phone] | | +--------+ + + + + [...] | | [facility] EM[facility] | MD Rm [address] | foot, closed, | | | | CENTER [address] | [address] [place] | initial encounter | | | | [place], [place] | [place] [address] | (Primary Dx); Fall, | | | | [address] | [phone] | initial encounter; | | | | [phone] | | Acute pain | +--------+ + [...]
--- OUTSIDE RECORDS SUMMARY | ~2020-04-03 | XMS | Encounter Summary ---
Demographics + + + | Address | [address] | | | [place] [address] | + + + | Home Phone [...] | Organization | [facility] | | | and [place] | + + + | Address | Unknown | + + + | Phone | Unavailable | + + + Support + + + + + | Name | Relationship | Address | Phone | + + + + + | Juanita Espinal | ECON | [address] | | | | | [place] | | | | | [address] | | + + + + + Care Team Providers + +------+ + | Care Copyright Expert Name | Role | Phone | + [...] + + | 10/14/ | Office | [facility] | Cam Francelas | Spondylolisthesis of | | 2016 | Visit | NEUROSURGERY [address] | [address] | lumbar region | | | | [address] | (Primary Dx); Other | | | | [place], [place] | [place] [address] | spondylosis, lumbar | | | | [address] | [phone] | region; | | | | [phone] | | Osteoporosis; Lumbar | | | [...] + documented in this encounter Progress Notes Jeffry France PA-C - 10/14/2016 10:52 AM PSTFormatting of this note might be differ ent from the original. 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 Moderate major depression, single episode ([facility]) Primary localized osteoarthritis of left hip Rheumatoid arthritis involving multiple sites ([facility]) Sacroiliac pain Thoracic neuritis T1-T2 Lumbar neuritis L3-L4, L4-L5, L5/S1 Lumbar spondylosis Neoplasm of uncertain behavior of skin Spinal stenosis, lumbar Lumbar canal with neurogenic claudication Lumbar foraminal stenosis 08/13/2016 Atrial fibrillation ([facility]) 08-18-2016 PAST SURGICAL HISTORY: Past Surgical History Procedure Laterality Date Hysterectomy 04[facility] Cataract surgery 2008 Dr. [...] has no apparent deficits with short or intermediate accountant memory. CRANIAL NERVES: Fundoscopic Exam: The optic [...] 5 5 Ulnar Intrinsics 5 5 Java Groovy Developer Strength 4+ 4+ Hip Flexion 5 [...] ear COPD (chronic obstructive pulmonary disease) ([facility]) Contusion of knee with skin surface intact Right Anterior Lumbar herniated disc L1/T2 Left Hyperlipoproteinemia type Li-a Spondylolisthesis of lumbar region L3/L4, L4/L5 Moderate major depression, single episode ([facility]) Primary localized osteoarthritis of left hip Rheumatoid arthritis involving multiple sites ([facility]) Sacroiliac pain Thoracic neuritis T1-T2 Lumbar neuritis [...]
--- OUTSIDE RECORDS SUMMARY | ~2020-04-03 | XMS | Encounter Summary ---
Demographics + + + | Address | [address] | | | [place] [address] | + + + | Home Phone [...] Organization | [facility] | | | and [place] | + + + | Address | Unknown | + + + | Phone | Unavailable | + + + Support + + + + + | Name | Relationship | Address | Phone | + + + + + | Juanita Espinal | ECON | [address] | | | | | [place] | | | | | [address] | | + + + + + Care Team Providers + +------+ + | Care Punch Molder Name | Role | Phone | + [...] + + | 01/23/ | Office | [facility] | Jeffry France | Spondylolisthesis of | | 2017 | Visit | NEUROSURGERY [address] | [address] | lumbar region | | | | [address] | [address] | (Primary Dx); Lumbar | | | | [place] | [place] [address] | radiculopathy; | | | | [address] | [phone] | Lumbar foraminal | | | | [phone] | | stenosis; Lumbar | | | [...] You can research this procedure more at: [email or web address] Choose your Diagnosis first and then choose XLIF under the [employer] Surgical Options link. documented in this encounter Progress Notes Jeffry France PA-C - 2017 10:15 AM PSTFormatting of this note might be differ ent from the original. Jeffry France PA-C [address] [facility] [place] [address] FAX: NEUROSURGERY HISTORY AND PHYSICAL EXAMINATION CHIEF [...] right ear COPD (chronic obstructive pulmonary disease) ([facility]) Contusion of knee with skin surface intact Right Anterior Lumbar herniated disc L1/T2 Left Hyperlipoproteinemia type Li-a Spondylolisthesis of lumbar region L3/L4, L4/L5 Moderate major depression, single episode (HCC) Primary localized osteoarthritis of left hip Rheumatoid arthritis involving multiple sites ([facility]) Sacroiliac pain Thoracic neuritis T1-T2 Lumbar neuritis L3-L4, L4-L5, L5/S1 Lumbar spondylosis Neoplasm of uncertain behavior of skin Spinal stenosis, lumbar Lumbar canal with neurogenic claudication Lumbar foraminal stenosis 08/13/2016 Atrial fibrillation (HCC) 08-18-2016 PAST SURGICAL HISTORY: Past Surgical History Procedure Laterality Date Hysterectomy 04[facility] Cataract surgery [address] Dr[address] Andrew [...] has no apparent deficits with short or rodent exterminator memory. CRANIAL NERVES: Fundoscopic Exam: The optic [...] Intrinsics 5 5 Ulnar Intrinsics 5 5 Metal Furniture Panel Coverer Strength 4+ 4+ Hip Flexion 5 5 [...] left hip Rheumatoid arthritis involving multiple sites ([facility]) Sacroiliac pain Thoracic neuritis T1-T2 Lumbar neuritis L3-L4, L4-L5, L5/S1 Lumbar spondylosis Neoplasm of uncertain behavior of skin Spinal stenosis, lumbar Lumbar canal with neurogenic claudication Lumbar foraminal stenosis 08/13/2016 Atrial fibrillation ([facility]) 08-18-2016 PLAN: Dorothea Calvo presented today, and [...]
--- OUTSIDE RECORDS SUMMARY | ~2020-04-03 | XMS | Encounter Summary ---
Demographics + + + | Address | [address] | | | [place] [address] | + + + | Home Phone | | + + + | Preferred Language | Unknown | + + + | Marital Status | | + + + | Presybeterian Affiliation | 1041 | + + + | Race | Unknown | + + + | Ethnic Group | Unknown | + + + Author + + + | Author | [facility] | | | and [place] | + + + | Organization | [facility] | | | and [place] | + + + | Address | Unknown | + + + | Phone | Unavailable | + + + Support + + + + + | Name | Relationship | Address | Phone | + + + + + | Juanita Espinal | ECON | [address] | | | | | [place], [place] | | | | | [address] | | + + + + + Care Team Providers + +------+ + | Care Sample Collector Name | Role | Phone | [...] Changes | NEUROSURGERY [address] | Dominick, Prescriptionist | | | | | [facility] [address] | | | | | | [place] | | | | | | [address] | | | | | | [phone] | | | +--------+ + + + [...]
--- OUTSIDE RECORDS SUMMARY | ~2020-04-03 | XMS | Encounter Summary ---
Demographics + + + | Address | [address] | | | [place] [address] | + + + | Home Phone [...] + | Organization | [facility] | | | and [place] | + + + | Address | Unknown | + + + | Phone | Unavailable | + + + Support + + + + + | Name | Relationship | Address | Phone | + + + + + | Juanita Espinal | ECON | [address] | | | | | [place] | | | | | [address] | | + + + + + Care Team Providers + +------+ + | Care Systems Support Specialist Name | Role | Phone | + +------+ + | Hemanth Lima PCP | | | MD | | | + +------+ + Encounter Details +--------+ + + + + | Date | Type | Department | Care Team | Description | +--------+ + + + + | 07/23/ | Hospital | [facility] | Cornia, Jaswant T, | | | 2017 | Encounter | MED CTR XRAY [address] | DPM [address] | | | | | [place] | [place], [place] | | | | | [place] [address] | [address] | | | | | [phone] | [phone] | | | | | | | [...]
--- OUTSIDE RECORDS SUMMARY | ~2020-04-03 | XMS | Encounter Summary ---
Demographics + + + | Address | [address] | | | [place] [address] | + + + | Home Phone | | + + + | Preferred Language | Unknown | + + + | Marital Status | | + + + | Pentecostalism Affiliation | 1041 | + + + | Race | Unknown | + + + | Ethnic Group | Unknown | + + + Author + + + | Author | [facility] | | | and [place] | + + + | Organization | [facility] | | | and [place] | + + + | Address | Unknown | + + + | Phone | Unavailable | + + + Support + + + + + | Name | Relationship | Address | Phone | + + + + + | Juanita Espinal | ECON | [address] | | | | | [place] | | | | | [address] | | + + + + + Care Team Providers + +------+ + | Care Rope Silica Machine Operator Name | Role | Phone | [...] | problem [facility] | [place], | [address] | | | | | - [place] | [place] [address] | Phone: | | | | | Procedures | Phone: | [phone] | | | | | [facility] unable | [phone] | Fax: | | | | | to reach, VM | Fax: | [phone] | | | | | full | [phone] | | | | | | 08/17/18 [...] | | | | | | [place] [address] | [place], [place] | | | | | | Phone: | [phone] Phone: | | | | | | [phone] | [phone] | | | | | | Fax: | Fax: | | | | | | [phone] | [phone] | +--------+ + + + + + [...] | Dizziness; Balance | | | | [place], [place] | [place] [address] | problem | | | | [address] | [phone] | | | | | [phone] | | | +--------+---------+ + + + [...] 9:45 AM PDT Corbin Boo PA-C [address] [facility], [address] [place] [address] PHONE: FAX: NEUROSURGERY FOLLOW-UP CHIEF COMPLAINT: Chief [...] History: Diagnosis Date Acute pansinusitis Atrial fibrillation ([facility]) 08-18-2016 Atypical chest pain Bilateral leg pain Contusion of knee with skin surface intact Right Anterior COPD (chronic obstructive pulmonary disease) ([facility]) Heart failure ([facility]) [place] (hard of hearing) Hyperlipoproteinemia type Li-a Impacted cerumen of right ear Low back pain Lumbar foraminal stenosis 08/13/2016 Lumbar herniated disc L1/T2 Left Lumbar neuritis L3-L4, L4-L5, L5/S1 Lumbar spondylosis Lumbar stenosis Moderate major depression, single episode ([facility]) Neoplasm of uncertain behavior of skin PONV (postoperative nausea and vomiting) projectile vomitting waking up after surgery Primary localized osteoarthritis of left hip Rheumatoid arthritis involving multiple sites ([facility]) Sacroiliac pain Spinal stenosis, lumbar [...] 04[facility] 05/26/2017 Procedure: L2-3, L3-4, L4-5 Lateral Anterior Interbody Fusion; L5-S1 Transforaminal Lumbar Interbody Fusion; Posterior Fusion @ L2-3, L3-4, L4-5, L5-S1; Surgeon: Edin Lynn MD; L ocation: [facility] Tumor [facility] [...] Right Anterior COPD (chronic obstructive pulmonary disease) ([facility]) Heart failure ([facility]) [place] (hard of hearing) Hyperlipoproteinemia type Li-a Impacted [...] that they can avoid additional s urgery. USP pain medication should be continued and tapered [...] | Ordered: 06/29/2018 | | Neurology - [place] | Referral | e | problem | [...]
--- OUTSIDE RECORDS SUMMARY | ~2020-04-03 | XMS | Encounter Summary ---
Demographics + + + | Address | [address] | | | [place] [address] | + + + | Home Phone [...] [facility] | | | and [place] | + + + | Address | Unknown | + + + | Phone | Unavailable | + + + Support + + + + + | Name | Relationship | Address | Phone | + + + + + | Juanita Espinal | ECON | [address] | | | | | [place] | | | | | [address] | | + + + + + Care Team Providers + +------+ + | Care Gun Sealing Machine Operator Name | Role | Phone | + +------+ + | Hemanth Lima PCP | | | MD | | | + +------+ + Reason for Visit + + + | Reason | Comments | + + + | Follow-up | | + + + | Atrial Fibrillation | | + + + Encounter Details +--------+---------+ + + + | Date | Type | Department | Care Team | Description | +--------+---------+ + + + | 10/20/ | Office | [facility] | Sarah Pena, | Atrial fibrillation | | 2017 | Visit | CARDIOLOGY [address] | with RVR ([facility]) | | | | [place], | [place], | (Primary Dx); Needs | | | | [place] [address] | [place] [address] | flu shot | | | | [phone] | [phone] | | | | | | | [...] + + + | Blood Pressure | 122/54 | 10/20/2017 11:28 AM | | | | | PST | | + + + + + | Pulse | 51 | 10/20/2017 11:28 AM | | | [...] + + + + | Weight | 62.4 kg (137 lb 9.1 | 10/20/2017 11:28 AM | | | | oz) | PST | | + + + + + | Height | 167.6 cm (5' 6") | 10/20/2017 11:28 AM | | | | | PST | | + + + + + | Body Mass Index | 22.2 | 10/20/2017 11:28 AM | | | [...] Instructions Patient Instructions Sirena Cifuentes RN - 10/20/2017 11:30 AM PSTFlu shot today Decrease Metoprolol to 50mg daily - you can use up your 100mg tablets and take 1/2 tablet o ne time daily. When you are ready for a refill, a new prescription for 50mg tablets - one t ablet one time daily has been sent to your pharmacy. Check blood pressure and pulse twice daily for two weeks, mail back in envelope provided Follow up appointment: 6 months Provider: Sarah Pena MD Date: Check-In Time: documented in this encounter Progress Notes Sarah Pena MD - 10/20/2017 11:30 AM PSTFormatting of this note might be different f rom the original. PATIENT NAME: Dorothea Calvo : 1945: AGE: 72 y.o. PRIMARY CARE: Hemanth Lima MD OUTPATIENT FOLLOW UP VISIT Date of Service: 10/20/2017 HISTORY OF PRESENT ILLNESS: Dorothea Calvo is a 72 y.o. female with a history of persistent atrial fibrillation, s willam stenosis, rheumatoid arthritis, and hypertension. She is being seen today for a 3 javon h follow up for atrial fibrillation. She was last seen 07/17/2017 at which time she was to start taking Xarelto 20 mg daily and to return in 3 months. Since that time, patient was seen in the Emergency Room in [place] for shortness of breath. She had a chest x-ray where they saw findings gutiérrez kileyive that she had congestive heart failure with preserved ejection fraction. She was adm itted for further evaluation. She was put on combination of furosemide and spironolactone. Today, patient is feeling good from a cardiac standpoint. She denies any cardiac symptoms. Patient is physically inactive at this time due to healing from heart surgery. Her daughter states she will start aqua therapy next week. There is no chest pain or chest discomfort bot h at rest and on exertion. Patient denies breathlessness. There is no palpitations, dizzines s or lightheadedness. There is no ankle or leg swelling. Patient can sleep on one pillow at night without difficulty breathing. MEDICAL, SURGICAL, AND PERSONAL HISTORY Past Medical, Surgical, Family, and Social History are reviewed in EPIC. CURRENT PROBLEMS Patient Active Problem List Diagnosis [...] due to multiple etiologies S/P lumbar fusion CURRENT MEDICATIONS Current Outpatient Prescriptions Medication Sig [...] mouth. Three times weekly. metoprolol succinate (TOPROL-XL) 100 mg ER tablet [...] Nabumetone Diarrhea ROS Review of Systems Constitutional: Negative for malaise/fatigue. Respiratory: Positive for shortness of breath. Cardiovascular: Positive for leg swelling. Negative for chest pain and palpitations. Neurological: Negative for dizziness. OBJECTIVE: PHYSICAL EXAM BP 122/54 | Pulse 51 | Resp 16 | Ht 1.676 m (5' 6") | Wt 62.4 kg (137 lb 9.1 oz) | BMI 22.20 kg/m Physical Exam Constitutional: She is oriented to person, place, and time. She appears well-developed and well-nourished. Female individual arrives in a wheelchair, accompanied by her daughter, showing no acute di stress. Neck: Normal carotid pulses and no JVD present. Carotid bruit is not present. Cardiovascular: Normal rate, regular rhythm, S1 normal, S2 normal, normal heart sounds and intact distal pulses. PMI is not displaced. Exam reveals no gallop and no friction rub. No murmur heard. Pulses: Carotid pulses are 2+ on the right side, and 2+ on the left side. Posterior tibial pulses are 2+ on the right side, and 2+ on the left side. Pulmonary/Chest: Effort normal and breath sounds normal. No accessory muscle usage. No resp iratory distress. She has no wheezes. She has no rhonchi. She has no rales. Abdominal: Soft. Normal appearance and normal aorta. She exhibits no abdominal bruit. There is no hepatosplenomegaly. There is no tenderness. Musculoskeletal: She exhibits no edema. Neurological: She is alert and oriented to person, place, and time. Gait normal. Skin: Skin is warm and dry. No cyanosis. Nails show no clubbing. Psychiatric: She has a normal mood and affect. Her mood appears not anxious. She does not e xhibit a depressed mood. ECG: Sinus bradycardia LAB RESULTS reviewed during visit today primarily from [facility]: LIPID No results found for: CHOL, TRIG, HDL, LDL, CHOLHDL, LDLEX, HDLEX, TRIGEX, CHOLEX CHEMISTRY Lab Results Component Value Date GLU 111 (H) 07/23/2017 GLUEX 128 09/01/2017 NA 138 07/23/2017 NAEX 132 09/01/2017 K 3.5 07/23/2017 KEX 4.2 09/01/2017 CL 104 07/23/2017 CLEX 96 09/01/2017 CO2 25 07/23/2017 CO2EX 2 09/01/2017 CALCIUM 9.1 07/23/2017 ALKPHOS 100 05/30/2017 AST 66 (H) 05/30/2017 ASTEX 45 (A) 09/06/2017 ALT 52 (H) 05/30/2017 ALTEX 128 (A) 09/06/2017 BILITOT 0.8 05/30/2017 CREA 0.61 07/23/2017 BUN 9 07/23/2017 EGFREX 85 09/01/2017 CREEX 0.68 09/01/2017 HEMATOLOGY Lab Results Component Value Date WBC 8.5 07/23/2017 WBCEX 18.1 09/01/2017 HGB 11.4 (L) 07/23/2017 HGBEX 11.6 09/01/2017 HCT 34.9 07/23/2017 HCTEX 35.4 09/01/2017 PLT 277 07/23/2017 PLTEX 384 09/01/2017 I reviewed records from Tristan French MD for emergency department visit on 09/07/2017. Above data and testing is reviewed this visit; testing below is historical data unless othe rwise specified. ASSESSMENT: 1. Heart Failure with acute preserved ejection fraction A. On 09/07/2017 patient was seen in the Emergency Room in [place] by Tristan French MD for shortness of breath. She had a chest x-ray where they saw findings suggestive that she h ad congestive heart failure with. She was admitted for further evaluation. She was put on c ombination of furosemide and spironolactone. 2. Persistent atrial fibrillation with rapid ventricular response, now bradycardia. A.Echocardiogram 09/05/2016 shows a technically difficult with [...] standpoint and she has no specific cardiac symptoms. There is no signs and symptoms of overt congestive heart failure. She is in a class I of [place] [employer] on functional class. Risk of stroke is reviewed today; herrisk factors are Hx of HTN (1), Age 65 to 74 (1) a nd Female Gender (1), giving hayde [id number] 3, estimating a 3= 3.2%risk of stroke [...] for scores of 2 or greater. She is on Eliquis to minimize the risk of stroke. She is on combination of metoprolol and diltiazem. She noticed that her pulse was been running in the mid 40s at home. 3. History of spinal stenosis A. She underwentL2-3, L3-4, L4-5 Lateral Anterior Interbody Fusion; L5-S1 Transforam inal Lumbar Interbody Fusion; Posterior Fusion @ L2-3, L3-4, L4-5, L5-S1; Surgeon: Edin Lynn MD; on 05/26/17. 4. Rheumatoid arthritis A. On chronic steroid, hypertension, paroxysmal atrial fibrillation, COPD. 5. Hypertension A. Today's blood pressure was well controlled. 6. Tobacco Use A. Patient stopped smoking in June. 7. Immunizations A. Patient has not received her influenza vaccine and is unsure of her pneumonia vaccines. Patient is encouraged to talk to her primary care provider regarding her pneumonia vaccines . PLAN: 1. Decrease metoprolol to 50 mg nightly due to increase heart rate. 2. I recommend a therapeutic lifestyle change including walking 30 minutes a day, choosing healthy choices of diet , including DASH diet and weight reduction. 3. Administer high dose influenza vaccine today. 4. Check blood pressure x 2 weeks. 5. Follow up in 6 months or sooner with concerns. I Alejandra Gao am acting as a scribe on behalf of, and in the presence of Sarah Pena MD. I have reviewed and edited this note. Alejandra Gao CMA 10/20/2017 I, Sarah Pena MD, personally performed the services described in this documentation, as scribed in my presence and it is both accurate and complete. Alejandra Gao CMA 7 11:36 Electronically signed by: Sarah Pena MD [facility] 10/20/2017 Portions of this chart may have been created with [employer] voice recognition software. Occasi onal wrong-word or sound-alike substitutions may have occurred due to the inherent munson itations of voice recognition software. Please read the chart carefully and recognize, using context, where these substitutions have occurred documented in this encounter Plan of Treatment Not on filedocumented as of this encounter Procedures + +--------+ + + + | Procedure Name | Priori | Date/Time | Associated Diagnosis | Comments | | | ty | | | | + +--------+ + + + | ECG 12 LEAD | Routin | 10/20/2017 | Atrial | Results for this | | | e | 11:33 AM | fibrillation with | procedure are in the | | | | PST | RVR ([facility]) | results section. | + +--------+ + + + documented in this encounter Results ECG 12 lead (10/20/2017 11:33 AM PST) + + + + + + | [...] + + + + | P-R | 162 | ms | [facility] | | | INTERVAL | | | | | + + + + + + | QRS | 90 | ms | [facility] | | | DURATION | | | | | + + + + + + | Q-T | 494 | ms | [facility] | | | INTERVAL | | | | | + + + + + + | Q-T | 455 | ms | [facility] | | | INTERVAL | | | | | | (CORRECTED) | | | | | + + + + + + | P WAVE AXIS | 73 | degrees | [facility] | | + + + + + + | QRS AXIS | 28 | degrees | [facility] | | + + + + + + | T AXIS | 66 | degrees | [facility] | | + + + + + + | INTERPRETAT | Sinus | | [facility] | | | ION TEXT | bradycardiaOtherwise | | | | | | normal ECGWhen compared | | | | | | with ECG of 23-JUL-2017 | | | | | | 11:55,No significant | | | | | | change was | | | | | | foundConfirmed by | | | | | | SARAH PENA MD | | | | | | ([id number]) on 10/21/2017 | | | | | | 6:00:45 AM | | | | + + [...] + | Atrial fibrillation with RVR (HCC) - Primary Atrial fibrillation | + + | Needs flu shot Need for prophylactic vaccination and inoculation against influenza | + + documented in this encounter
--- OUTSIDE RECORDS SUMMARY | ~2020-04-03 | XMS | Encounter Summary ---
Demographics + + + | Address | [address] | | | [place] [address] | + + + | Home Phone | | + + + | Preferred Language | Unknown | + + + | Marital Status | | + + + | Methodist Affiliation | 1041 | + + + | Race | Unknown | + + + | Ethnic Group | Unknown | + + + Author + + + | Author | [facility] | | | and [place] | + + + | Organization | [facility] | | | and [place] | + + + | Address | Unknown | + + + | Phone | Unavailable | + + + Support + + + + + | Name | Relationship | Address | Phone | + + + + + | Juanita Espinal | ECON | [address] | | | | | [place] | | | | | [address] | | + + + + + Care Team Providers + +------+ + | Care Ignition Specialist Name | Role | Phone | [...] + + | 10/20/ | Office | [facility] | Sarah Pena, | Atrial fibrillation | | 2017 | Visit | CARDIOLOGY [address] | [address] | with [facility] ([facility]) | | | | [place], | [place], | (Primary Dx); Needs | | | | [place] [address] | [place] [address] | flu shot | | | | [phone] | [phone] | | | | | | | [...] RESULTS reviewed during visit today primarily from [facility]: LIPID No results found for: CHOL, [...] was seen in the Emergency Room in [place] by Tristan French MD for shortness of [...] a nd Female Gender (1), giving hayde [id number] 3, estimating a 3= 3.2%risk of stroke [...] 11:36 Electronically signed by: Sarah Pena MD [facility] 10/20/2017 Portions of this chart may have been created with [employer] One[employer] Me (NOOM) voice recognition software. Occasi onal wrong-word or [...] | | PST | [facility] ([facility]) | results section. | + +--------+ [...] MD | | | | | | ([id number]) on 10/21/2017 | | | | | [...]
--- OUTSIDE RECORDS SUMMARY | ~2020-04-03 | XMS | Encounter Summary ---
Demographics + + + | Address | [address] | | | [place] [address] | + + + | Home Phone | | + + + | Preferred Language | Unknown | + + + | Marital Status | | + + + | Mosque Affiliation | 1041 | + + + | Race | Unknown | + + + | Ethnic Group | Unknown | + + + Author + + + | Author | [facility] | | | and [place] | + + + | Organization | [facility] | | | and [place] | + + + | Address | Unknown | + + + | Phone | Unavailable | + + + Support + + + + + | Name | Relationship | Address | Phone | + + + + + | Juanita Espinal | ECON | [address] | | | | | [place], [place] | | | | | [address] | | + + + + + Care Team Providers + +------+ + | Care Computer Applications Instructor Name | Role | Phone | + [...] | CARDIOLOGY [address] | MD [address] | | | | | [place], | [place], | | | | | [place] [address] | [place] [address] | | | | | [phone] | [phone] | | | | | | | [...] Resulting Agency Comment | + + | [facility] | + + + +---------+ + [...] Resulting Agency Comment | + + | [facility] | + + + +---------+ + [...] Resulting Agency Comment | + + | [facility] | + + + +---------+ + + [...] [facility]ing [facility] Comment | + + | [facility] | + + + +---------+ + [...] Comment | + + | [facility] | + + + +---------+ + + [...] Resulting Agency Comment | + + | [facility] | + + + +---------+ + [...] [facility] Comment | + + [facility] | + + + +---------+ [...] Resulting Agency Comment | + + | [facility] | + + + +---------+ + [...] Resulting Agency Comment | + + | [facility] | + + + +---------+ + [...] Resulting Agency Comment | + + | [facility] | + + + +---------+ + + [...] Comment | + + | [facility] | + + + +---------+ + + [...] Resulting Agency Comment | + + | [facility] | + + + +---------+ + + [...] Resulting Agency Comment | + + | [facility] | + + + +---------+ + + | Performing | Address | City/State/Zipcode | Phone Number | | Organization | | | | + +---------+ + + | EXTERNAL LAB | | | | + +---------+ + + documented in this encounter Visit Diagnoses Not on filedocumented in this encounter"
--- OUTSIDE RECORDS SUMMARY | ~2020-04-03 | XMS | Encounter Summary ---
Demographics + + + | Address | [address] | | | [place] [address] | + + + | Home Phone [...] | Organization | [facility] | | | and [place] | + + + | Address | Unknown | + + + | Phone | Unavailable | + + + Support + + + + + | Name | Relationship | Address | Phone | + + + + + | Juanita Espinal | ECON | [address] | | | | | [place] | | | | | [address] | | + + + + + Care Team Providers + +------+ + | Care Rv Repairer Name | Role | Phone | + [...] + | 03/09/ | Refill | [facility] | Isacc Sears, | Medication Refill | | 2017 | | CARDIOLOGY [address] | [address] | | | | | [place], | [place], | | | | | [place] [address] | [place] [address] | | | | | [phone] | | | | | | | [...]
--- OUTSIDE RECORDS SUMMARY | ~2020-04-03 | XMS | Encounter Summary ---
Demographics + + + | Address | [address] | | | [place] [address] | + + + | Home Phone | | + + + | Preferred Language | Unknown | + + + | Marital Status | | + + + | Quaker Affiliation | 1041 | + + + | Race | Unknown | + + + | Ethnic Group | Unknown | + + + Author + + + | Author | [facility] | | | and [place] | + + + | Organization | [facility] | | | and [place] | + + + | Address | Unknown | + + + | Phone | Unavailable | + + + Support + + + + + | Name | Relationship | Address | Phone | + + + + + | Juanita Espinal | ECON | [address] | | | | | [place] | | | | | [address] | | + + + + + Care Team Providers + +------+ + | Care Retirement Sales Consultant Name | Role | Phone | + +------+ + | Hemanth Lima PCP | | | MD | | | + +------+ + Encounter Details +--------+ + + + + | Date | Type | Department | Care Team | Description | +--------+ + + + + | 08/10/ | Orders Only | [facility] | Edin Lynn MD | Status post lumbar | | 2018 | | NEUROSURGERY [address] | [address] | spinal fusion | | | | [address] | [place] [address] | (Primary Dx) | | | | [place] | [phone] | | | | | [address] | | | | | | [phone] | | | +--------+ + + + [...] | interval complication. Dictated and Signed by: Janie Churchill | | Electronically signed: 06/29/2018 11:24 AM [...]
--- OUTSIDE RECORDS SUMMARY | ~2020-04-03 | XMS | Encounter Summary ---
Demographics + + + | Address | [address] | | | [place] [address] | + + + | Home Phone | | + + + | Preferred Language | Unknown | + + + | Marital Status | | + + + | Worship Affiliation | 1041 | + + + | Race | Unknown | + + + | Ethnic Group | Unknown | + + + Author + + + | Author | [facility] | | | and [place] | + + + | Organization | [facility] | | | and [place] | + + + | Address | Unknown | + + + | Phone | Unavailable | + + + Support + + + + + | Name | Relationship | Address | Phone | + + + + + | Juanita Espinal | ECON | [address] | | | | | [place] | | | | | [address] | | + + + + + Care Team Providers + +------+ + | Care Ad Clerk Name | Role | Phone | [...] | | | | | | | MO ARTHDSIS | | | | | | | POST/POSTERO | | | | | | | LATRL/POSTIN | | | | | | | TERBODY | | | | | | | LUMBAR MO | | | | | | | SPINE | | | | | | | FUSN,POST | | | | | | | TECH,EA | | | | | | | ADDNL SGMT | | | | | | | MO SPINE | | | | | | | FUSN,POST | | | | | | | TECH,EA | | | | | | | ADDNL SGMT | | | | | | | MO SPINE | | | | | | | FUSN,POST | | | | | | | TECH,EA | | | | | | | ADDNL SGMT | | | | | | | MO LUMBAR | | | | | | | SPINE | | | | | | | FUSION,ANTER | | | | | | | APPRCH MO | | | | | | | SPINAL | | | | | | | FUSION,ANT,E | | | | | | | A ADNL LEVEL | | | | | | | MO SPINAL | | | | | | [...] | | | | | | SEG MO | | | | | | | LAMINEC/FACE | | | | | | | TECT/FORAMIN | | | | | | | ,EACH ADDNL | | | | | | | MO | | | | | | | LAMINEC/FACE | | | | | | | TECT/FORAMIN | | | | | | | ,EACH ADDNL | | | | | | | MO INSJ | | | | | | | BIOMCHN DEV | | | | | | | INTERVERTEBR | | | | | | | AL DSC SPC | | | | | | | W/ARTHRD MO | | | | | | | INSJ | | | | | | | BIOMCHN DEV | | | | | | | INTERVERTEBR | | | | | | | AL DSC SPC | | | | | | | W/ARTHRD MO | | | | | | | INSJ | | | | | | | BIOMCHN DEV | | | | | | | INTERVERTEBR | | | | | | | AL DSC SPC | | | | | | | W/ARTHRD MO | | | | | | | [...] | | | | | [address] | [place] | | | | | [place] | [address] | | | | | [address] | | | | | | [phone] | Serafin Huerta, | | | | | | MD [address] | | | | | | [place] | | | | | | [address] | | | | | | | [...] +----+---+ + + | | 0 | [place] | | | | 8 | 43-degrees [...]
--- OUTSIDE RECORDS SUMMARY | ~2020-04-03 | XMS | Encounter Summary ---
Demographics + + + | Address | [address] | | | [place] [address] | + + + | Home Phone | | + + + | Preferred Language | Unknown | + + + | Marital Status | | + + + | Orthodox Affiliation | 1041 | + + + | Race | Unknown | + + + | Ethnic Group | Unknown | + + + Author + + + | Author | [facility] | | | and [place] | + + + | Organization | [facility] | | | and [place] | + + + | Address | Unknown | + + + | Phone | Unavailable | + + + Support + + + + + | Name | Relationship | Address | Phone | + + + + + | Juanita Espinal | ECON | [address] | | | | | [place] | | | | | [address] | | + + + + + Care Team Providers + +------+ + | Care Dust Collector Ore Crushing Name | Role | Phone | + [...] | +--------+ + + + + | 09/30/ | Telephone | [facility] | Edin Lynn MD | Medication Question | | 2017 | | NEUROSURGERY [address] | [address] | | | | | [address] | [place] [address] | | | | | [place] | [phone] | | | | | [address] | | | | | | [phone] | | | +--------+ + + + [...]
--- OUTSIDE RECORDS SUMMARY | ~2020-04-03 | XMS | Encounter Summary ---
Demographics + + + | Address | [address] | | | [place] [address] | + + + | Home Phone | | + + + | Preferred Language | Unknown | + + + | Marital Status | | + + + | Scientologist Affiliation | 1041 | + + + | Race | Unknown | + + + | Ethnic Group | Unknown | + + + Author + + + | Author | [facility] | | | and [place] | + + + | Organization | [facility] | | | and [place] | + + + | Address | Unknown | + + + | Phone | Unavailable | + + + Support + + + + + | Name | Relationship | Address | Phone | + + + + + | Juanita Espinal | ECON | [address] | | | | | [place] | | | | | [address] | | + + + + + Care Team Providers + +------+ + | Care Road Production General Manager Name | Role | Phone | [...] | Physical | Diagnoses | [place], | [place], | | | Services | Medicine and | Lumbar | Jeffry | Piotr Huizar MD | | | Required | Rehabilitatio | radiculopath | [address] | [address] | | | | n | y | [address] | [address] [place] | | | | | Spondylolist | [address] | [facility] [place] | | | | | hesis of | [place], [place] | [address] Phone: | | | | | lumbar | [address] | [phone] | | | | | region | Phone: | Fax: | | | | | Lumbar facet | [phone] | [phone] | | | | | arthropathy | Fax: | | | | | | [place] | [phone] | | | | | | stenosis [...] | +--------+ + + + + + Diagnostic/Screening (Routine) +--------+--------+ + + + + | Status | Reason | Specialty | Diagnoses / | Referred By | Referred To | | | | | Procedures | Contact | Contact | +--------+--------+ + + + + | Closed | | Radiology | Diagnoses | West, | OP ST | | | | | Hand | Jeffry | PETRA | | | | | weakness | TAMIKO Tyler | [facility] | | | | | Hyperreflexi | [address] | [address] | | | | | a | [address] | AVE | | | | | Procedures | [place] | [place] | | | | | MRI Cervical | [address] | [address] | | | | | Spine wo | Phone: | Phone: | | | | | Contrast | [phone] | [phone] | | | | | | Fax: | Fax: | | | | | | [phone] | [phone] | +--------+--------+ + + + + Reason for Visit + + + | Reason | Comments | + + + | Back Pain | low back pain | + + + Evaluate & Treat (Urgent) +--------+--------+ + + + + | Status | Reason | Specialty | Diagnoses / | Referred By | Referred To | | | | | Procedures | Contact | Contact | +--------+--------+ + + + + | Closed | | Neurosurgery | Diagnoses | Cla[place], | Edin Lynn | | | | | Lumbar | Hemanth Rincon MD [address] | | | | | stenosis | MD [place] | [address] | | | | | Procedures | [address] | [place] | | | | | [place] OFFICE | [place] | [address] | | | | | CONSULTATION | Simon | Phone: | | | | | NEW/ESTAB | [place] | [phone] | | | | | PATIENT 60 | [address] | Fax: | | | | | MIN | Phone: | [phone] | | | | | | [phone] | | | | | | | Fax: | | | | | | | [phone] | | +--------+--------+ + + + + Encounter Details +--------+---------+ + + + | Date | Type | Department | Care Team | Description | +--------+---------+ + + + | 07/23/ | Office | [facility] | [place], [place]ry | Lumbar radiculopathy | | 2016 | Visit | NEUROSURGERY [address] | [address] | (Primary Dx); | | | | [address] | [address] | Spondylolisthesis of | | | | [place], [place] | [place] [address] | lumbar region; | | | | [address] | [phone] | Lumbar facet | | | | [phone] | | arthropathy; | | | | [...] Hyperreflexia; | | | | | | Osteoporosis | +--------+---------+ + + + Social History [...] + + + | Blood Pressure | 147/77 | 07/23/2016 7:50 AM | | | | | PDT | | + + + + + | Pulse | 70 | 07/23/2016 7:50 AM | | | | | PDT | | + + + + + | Temperature | - | - | | + + + + + | Respiratory Rate | 16 | 07/23/2016 7:50 AM | | | | | PDT | | + + + + + | Oxygen Saturation | - | - | | + + + + + | Inhaled Oxygen | - | - | | | Concentration | | | | + + + + + | Weight | 62.6 kg (138 lb) | 07/23/2016 7:50 AM | | | | | PDT | | + + + + + | Height | 165.1 cm (5' 5") | 07/23/2016 7:50 AM | | | | | PDT | | + + + + + | Body Mass Index | 22.96 | 07/23/2016 7:50 AM | | | | | PDT | | + + + + + documented in this encounter Patient Instructions Patient Instructions Jeffry France PA-C - 07/23/2016 8:53 AM PDTToday we decided w irvin would obtain a cervical MRI and x-rays of your cervical spine as well. I would also like to have a DEXA scan to evaluate her bone health. In addition I would like you to intensify your efforts at smoking cessation. He may need to discuss this with your primary care kacy domínguez. In addition I would like you to follow-up with physiatry to help with conservative car e. We also discussed using a lumbar brace during times of activity that will flareup your b ack and leg symptoms. After we have completed your test and would like you to return to the office so that we may make further recommendations documented in this encounter Progress Notes Meggan Willis, Licensing Engineer - 07/23/2016 8:08 AM PDT Jeffry France PA-C [address] [place] [address], [address] [place], [place] [address] FAX: NEUROSURGERY HISTORY AND PHYSICAL EXAMINATION CHIEF COMPLAINT: Chief Complaint Patient presents with Back Pain low back pain HISTORY OF PRESENT ILLNESS: The patient is a 71 y.o. female with the complaint of back and bilateral leg pain symptoms that began Many years ago. The patient describes having had low back pain for many years. He has noted gradual and worsening problems with low back pain w nevah radiates into her legs. He started mostly on the right side but now his left side as w sayda. She cares for her has fairly severe rheumatoid arthritis. Her abilities to do her usual routines have greatly suffered due to her pain and her symptoms. The symptoms have been [...] right ear COPD (chronic obstructive pulmonary disease) ([facility]) Contusion of knee with skin surface intact Right Anterior Lumbar herniated disc L1/T2 Left Hyperlipoproteinemia type Li-a Spondylolisthesis of lumbar region L3/L4, L4/L5 Moderate major depression, single episode ([facility]) Primary localized osteoarthritis of left hip Rheumatoid arthritis involving multiple sites ([facility]) Sacroiliac pain Thoracic neuritis T1-T2 Lumbar neuritis L3-L4, L4-L5, L5/S1 Lumbar spondylosis Neoplasm of uncertain behavior of skin Spinal stenosis, lumbar Lumbar canal with neurogenic claudication PAST SURGICAL HISTORY: Past Surgical History Procedure Laterality Date [facility]ste[facility] 04[facility] Cataract surgery 2008 Dr. Andrew Maldonado Appendectomy [...] + rheumatoid arthritis. PHYSICAL EXAMINATION: Blood pressure 147/77, pulse 70, resp. rate 16, height 1.651 m (5' 5"), weight 62.596 kg (1 38 lb). Body mass index is 22.96 kg/(m^2). GENERAL: Dorothea Calvo [...] has no apparent deficits with short or acquisition advisor memory. CRANIAL NERVES: Fundoscopic Exam: The optic [...] Intrinsics 5 5 Ulnar Intrinsics 5 5 Business Affairs Manager Strength 4+ 4+ Hip Flexion 5 [...] changes from L2-S1. She has foraminal narrowing whi ch is noted at every level but worse at L4-5 on the right and L5-S1 on the left chest spondy lolisthesis noted at L3-4 and L4-5 Lumbar x-rays show spondylolisthesis at L3-4 and L4-5 with no instability on flexion extens ion views. ASSESSMENT: NEUROSURGICAL DIAGNOSES: Encounter Diagnoses Name Primary? Lumbar radiculopathy Yes Spondylolisthesis of lumbar region Lumbar facet arthropathy Foraminal stenosis of lumbar region Other spondylosis, lumbar region DDD (degenerative disc disease), lumbar Hand weakness Hyperreflexia Osteoporosis GENERAL DIAGNOSES: Past Medical History Diagnosis Date [...] arthritis involving multiple sites (HCC) Sacroiliac pain Thoracic neuritis T1-T2 Lumbar neuritis L3-L4, L4-L5, L5/S1 Lumbar spondylosis Neoplasm of uncertain behavior of skin Spinal stenosis, lumbar Lumbar canal with neurogenic claudication PLAN: Dorotheaadrienne Calvo presented today, and it was a pleasure seeing this patient and assessin g her neurologic problems. The patient has fairly significant back pain with leg symptoms consistent with her MRI find ings. She is on chronic steroid and most likely has a degree of osteoporosis. The patient also continues to smoke about half a pack a day. Disease make her less than ideal surgical candidate at this time. In addition the patient is hyperreflexive and has some bilateral mccann nd weakness. The patient has progressive symptoms despite non-operative measures. I had a lengthy discussion with the patient about her options for care including surgical a nd non-surgical options. In discussing the surgical options, we discussed in detail the patient's options for Extens mason lumbar fusion from L2-S1. The patient understands that in most instances the recovery f rom surgery can be lengthy and sometimes difficult. I would like the patient to have an MRI of her cervical spine as well as flexion and extens ion views to rule out significant spinal cord stenosis. In addition the patient should have a DEXA scan to evaluate her bone health prior to consideration of surgery. We also discuss ed the fact that she would need to quit smoking before we were to consider surgery on her rama mbar spine. In the interim I would like her to follow-up with physiatry for further evaluat ion and treatment. Hopefully intensifying conservative therapy will help alleviate some of her symptoms. I am recommending that she begin bracing now to help and assist with her current pain sympt oms. The bracing will continue after surgery as discussed with the patient. After the patient has completed her testing he will return to the office to review the resu lts and make further recommendations. She will begin smoking cessation discussions with her primary care provider as indicated ELECTRONICALLY SIGNED BY: Jeffry France PA-C, 07/23/2016 8:55 documented in this encounter Plan of Treatment + +---------+--------+ + + | Name | Type | Priori | Associated Diagnoses | Order Schedule | | | | ty | | | + +---------+--------+ + + | MRI Cervical Spine | Imaging | Routin | Hand weakness | Expected: | | wo Contrast | | e | Hyperreflexia | 07/23/2016, Expires: | | | | | | 07/23/2017 | + +---------+--------+ + + + + +--------+ + + | Name | Type | Priori | Associated Diagnoses | Order Schedule | | | | ty | | | + + +--------+ + + | [facility] | Outpatient | Routin | Lumbar | Ordered: 07/23/2016 | | | Referral | e | radiculopathy | | | | | | Spondylolisthesis [...] | | | disease), lumbar | | + + +--------+ + + documented as of this encounter Results XR Cervical Spine 4 or 5 Vws (08/13/2016 2:12 PM PDT) + + | Specimen | + + | | + + + + + | Narrative | Performed At | + + + | EXAM: XR CERVICAL SPINE 4 OR 5 VWS HISTORY: Neck pain | [facility] | | TECHNIQUE: AP, lateral, odontoid views of the cervical spine | [facility] | | COMPARISON: Cervical spine MRI [...] [address] | [place] | [phone] | | [facility] | | [address] | | | - IMAGING | | [...]
--- OUTSIDE RECORDS SUMMARY | ~2020-04-03 | XMS | Encounter Summary ---
Demographics + + + | Address | [address] | | | [place] [address] | + + + | Home Phone | | + + + | Preferred Language | Unknown | + + + | Marital Status | | + + + | Yazidism Affiliation | 1041 | + + + | Race | Unknown | + + + | Ethnic Group | Unknown | + + + Author + + + | Author | [facility] | | | and [place] | + + + | Organization | [facility] | | | and [place] | + + + | Address | Unknown | + + + | Phone | Unavailable | + + + Support + + + + + | Name | Relationship | Address | Phone | + + + + + | Juanita Espinal | ECON | [address] | | | | | [place] | | | | | [address] | | + + + + + Care Team Providers + +------+ + | Care Automobile Damage Field Appraiser Name | Role | Phone | + [...] [address] | [facility] [address] | Spondylolisthesis of | | | | [place], [place] | [phone] | lumbar region; | | | | [address] | | Lumbar facet | | | | [phone] | | arthropathy; | | | | [...]
--- OUTSIDE RECORDS SUMMARY | ~2020-04-03 | XMS | Encounter Summary ---
Demographics + + + | Address | [address] | | | [place] [address] | + + + | Home Phone [...] | Organization | [facility] | | | and [place] | + + + | Address | Unknown | + + + | Phone | Unavailable | + + + Support + + + + + | Name | Relationship | Address | Phone | + + + + + | Juanita Espinal | ECON | [address] | | | | | [place], [place] | | | | | [address] | | + + + + + Care Team Providers + +------+ + | Care Adjunct Spanish Instructor Name | Role | Phone | [...] | | [address] | Emergency Planning And Response Manager | | | | | [place], [place] | | | | | | [address] | | | | | | [phone] | | | +--------+ + + + [...]
--- OUTSIDE RECORDS SUMMARY | ~2020-04-03 | XMS | Encounter Summary ---
Demographics + + + | Address | [address] | | | [place] [address] | + + + | Home Phone | | + + + | Preferred Language | Unknown | + + + | Marital Status | | + + + | Shinto Affiliation | 1041 | + + + | Race | Unknown | + + + | Ethnic Group | Unknown | + + + Author + + + | Author | [facility] | | | and [place] | + + + | Organization | [facility] | | | and [place] | + + + | Address | Unknown | + + + | Phone | Unavailable | + + + Support + + + + + | Name | Relationship | Address | Phone | + + + + + | Juanita Espinal | ECON | [address] | | | | | [place] | | | | | [phone] | | + + + + + Care Team Providers + +------+ + | Care Senior Water Resources Engineer Name | Role | Phone | [...] | | | | | | | [place] ARTHDSIS | | | | | | | POST/POSTERO | | | | | | | LATRL/POSTIN | | | | | | | TERBODY | | | | | | | LUMBAR [place] | | | | | | | SPINE | | | | | | | FUSN,POST | | | | | | | TECH,EA | | | | | | | ADDNL SGMT | | | | | | | WI SPINE | | | | | | | FUSN,POST | | | | | | | TECH,EA | | | | | | | ADDNL SGMT | | | | | | | WI SPINE | | | | | | | FUSN,POST | | | | | | | TECH,EA | | | | | | | ADDNL SGMT | | | | | | | WI LUMBAR | | | | | | | SPINE | | | | | | | FUSION,ANTER | | | | | | | APPRCH WI | | | | | | | SPINAL | | | | | | | FUSION,ANT,E | | | | | | | A ADNL LEVEL | | | | | | | WI SPINAL | | | | | | [...] | | | | | | SEG WI | | | | | | | LAMINEC/FACE | | | | | | | TECT/FORAMIN | | | | | | | ,EACH ADDNL | | | | | | | WI | | | | | | | LAMINEC/FACE | | | | | | | TECT/FORAMIN | | | | | | | ,EACH ADDNL | | | | | | | WI INSJ | | | | | | | BIOMCHN DEV | | | | | | | INTERVERTEBR | | | | | | | AL DSC SPC | | | | | | | W/ARTHRD WI | | | | | | | INSJ | | | | | | | BIOMCHN DEV | | | | | | | INTERVERTEBR | | | | | | | AL DSC SPC | | | | | | | W/ARTHRD WI | | | | | | | INSJ | | | | | | | BIOMCHN DEV | | | | | | | INTERVERTEBR | | | | | | | AL DSC SPC | | | | | | | W/ARTHRD WI | | | | | | | [...] Description | +--------+---------+ + + + | 05/26/ | Surgery | [facility] | Edin Lynn MD | L2-3, L3-4, L4-5 | | 2017 | | MED CTR OR INTRA OP | [address] | Lateral Anterior | | | | [address] | [place] [address] | Interbody Fusion; | | | | HARDEEP Sousa | [phone] | L5-S1 Transforaminal | | | | [phone] | | Lumbar Interbody | | | | [phone] | | Fusion; Posterior | | | | | | Fusion @ L2-3, L3-4, | | | | | | L4-5, L5-S1 | +--------+---------+ + + + Social History [...] the original. DISCHARGE SUMMARY Pt. Name/Age/: Dorothea Calvo 72 y.o. 1945 Date of Admission: [...] the patient was admitted to [facility] and underwent a L2-S1 f usion. Patient [...] by: José Miguel Garcia, 06/06/2017 8:39 [facility] documented in this encounter Discharge Instructions Instructions [...] month post op appointment before your appointment. [id number] [employer]. [address] [place] [address], [place] [id number]. All righ ts reserved. This information is [...] might be diffe rent from the original. [facility] NEUROSURGERY PROGRESS NOTE PATIENT NAME: [...] Au MD 400 mg at 05/17 12/02 2131 ampicillin-sulbactam (UNASYN) 3 g in sodium chloride 0.9% 100 mL IVPB 3 g Intravenous 4 times per day Yann Au MD 200 mL/hr at 06/06/17 0628 3 g at 06/06/17 0628 apixaban (ELIQUIS) tablet 5 mg 5 mg Oral BID Isacc Sears MD 5 mg at 06/05/17 2 131 [...] 400 mg 400 mg Oral Daily Garrison Miguelangel Resendiz DO 400 mg at 06/05/17 0903 [...] has no apparent deficits with short or snf memory. MOTOR EXAM: Motor strength is stable 4+/5 R DF and HF SENSORY EXAM: Sensory exam is stable 24 HOUR LABS: All Component Based Labs None ASSESSMENT: NEUROSURGICAL DIAGNOSES: S/p lumbar fusion A Fib Mental status changes improved HOSPITAL/GENERAL DIAGNOSES: Past Medical History: Diagnosis Date Acute pansinusitis Atrial fibrillation ([facility]) 08-18-2016 Atypical chest pain Bilateral leg pain Contusion of knee with skin surface intact Right Anterior COPD (chronic obstructive pulmonary disease) ([facility]) Hyperlipoproteinemia type Li-a Impacted cerumen of right ear Low back pain Lumbar foraminal stenosis 08/13/2016 Lumbar herniated disc L1/T2 Left Lumbar neuritis L3-L4, L4-L5, L5/S1 Lumbar spondylosis Lumbar stenosis Moderate major depression, single episode ([facility]) Neoplasm of uncertain behavior of skin PONV (postoperative nausea and vomiting) projectile vomitting waking up after surgery Primary localized osteoarthritis of left hip Rheumatoid arthritis involving multiple sites ([facility]) Sacroiliac pain Spinal stenosis, lumbar Lumbar canal [...] BY: José Miguel Garcia PA-C, 06/06/2017 8:21 Jarad Strange MD - 06/05/2017 1:4 9 PM PDT [facility]PITAL[facility] PROGRESS NOTE Patient: Dorothea Calvo : 1945: Age: 72 y.o. MedRec: [id number] PCP: Hemanth Lima MD Admission date: 05/26/2017 [...] 06/05/17 0601 06/04/17 0604 06/03/17 0526 05/30/17 0337 GLU 103 110* 106 < > 126* [...] Digoxin Recent Labs Lab 06/02/17 0341 06/01/17 034 BNP 162* 423* ABG No results for input(s): PHART, PO2ART, VGG1DQA, QOD5WBE, BEART, W7IHSXHU in the last 168 h ours. No results for input(s): SPECSOURCE, PHPOCB, PCO2, PO2, HCO3, TCO2, BEART, BYXI2HBZ in the last 168 hours. Drug of overdose and abuse No results for input(s): ALCOHOL, ACTMN, SALICYLATE in the last 168 hours. No results for input(s): AMPHEQUAL, BARBITURATE, BENZSCR, CANNIBSCR, AMPHETAMINE, METHADSCR , OPIATESCR in the last 168 hours. Urinalysis Recent Labs Lab 06/04/17 194 GLUCOSEU Negative WBCUA 2-5* RBCUA 0-2 SQUAMEPIUA [...] right hip. No fracture or focal b kaern destructive change. Femoral acetabular relationships are within [...] Filed Weights: 05/26/17 0622 05/26/17 1630 05/27/17 2340 05/29/17 0135 Weight: 72.1 kg (159 lb) [...] oz) I/O last 24 Hours: In: 2190 [P.O.:1989; IV Piggyback:200] Out: 1650 [Urine:1650] I/O last [...] is eating better Says won't go to [place] (says if not [facility] rehab then home with family support) No N/V constipation Discussed hip xray. She says that "Dr France" talked to her about her hip area pain earlier UA negative (2-5 WBC considered negative) ROS See above Exam General Alert NAD Cardiac RRR 1/6 sys and tele reviewed earlier still has [...] for her RA) note also on [employer]rav[employer] GUIDE Left arm IV site swelling (thrombus) Dr [...] She says PCP is Dr Lima in [place] [facility] Problems Diagnosis No resolved problems to display. (dot meyaddendum tdnorefesh nownorefresh) (dot meyvent) (dot malnutattest is attestation for malnutrition) Plan Placement vs home pending Tele ended (dot meyaddendum tdnorefesh nownorefresh) (dot meytime meycritical meysign) Jarad Montes MD 06/05/2017 13:50 [facility] Reference. This is NOT part of [...] this chart may have been created with [employer] recognition software. Occasi onal wrong-word or sound-alike substitutions may have occurred due to the inherent munson itations of voice recognition software. Please read the chart carefully and recognize, using context, where these substitutions have occurred est, Jeffry Tyler PA-C - 06/05/2017 7:39 AM PDT [facility] NEUROSURGERY PROGRESS NOTE PATIENT NAME: Dorothea Calvo AGE: 72 y.o. DATE OF SERVICE: 06/05/2017 7:39 S: The patient did better yesterday. Pain is reasonably controlled. We have claudia working t [facility]. The patient has been voiding and [...] g Intravenous 4 times per day Yann uA MD 200 mL/hr at 06/05/17 0532 3 [...] 10 mg Oral Q4H PRN José Miguel Garcai PA-C OLANZapine zydis (zyPREXA ZYDIS) disintegrating tablet [...] Intake/Output Summary (Last 24 hours) at 06/05/17 0734 Last data filed at 06/05/17 0532 Gross [...] has no apparent deficits with short or termite treater memory. MOTOR EXAM: Motor strength is stable 4+/5 R DF and HF SENSORY EXAM: Sensory exam is stable 24 HOUR LABS: All Component Based Labs None ASSESSMENT: NEUROSURGICAL DIAGNOSES: S/p lumbar fusion A Fib Mental status changes improved HOSPITAL/GENERAL DIAGNOSES: Past Medical History: Diagnosis Date Acute pansinusitis Atrial fibrillation ([facility]) 08-18-2016 Atypical chest pain Bilateral leg pain Contusion of knee with skin surface intact Right Anterior COPD (chronic obstructive pulmonary disease) ([facility]) Hyperlipoproteinemia type Li-a Impacted cerumen of right ear Low back pain Lumbar foraminal stenosis 08/13/2016 Lumbar herniated disc L1/T2 Left Lumbar neuritis L3-L4, L4-L5, L5/S1 Lumbar spondylosis Lumbar stenosis Moderate major depression, single episode ([facility]) Neoplasm of uncertain behavior of skin PONV (postoperative nausea and vomiting) projectile vomitting waking up after surgery Primary localized osteoarthritis of left hip Rheumatoid arthritis involving multiple sites ([facility]) Sacroiliac pain Spinal stenosis, lumbar Lumbar canal [...] MD - 06/04/2017 12:33 P M PDT [place] HOSPITALIST PROGRESS NOTE Patient: Dorothea Calvo : 1945: Age: 72 y.o. MedRec: [id number] PCP: Hemanth Lima MD Admission date: 05/26/2017 [...] Jarad Montes MD 5 mg at 06/03/17 204 ondansetron (ZOFRAN ODT) disintegrating tablet 4 mg [...] Recent Labs Lab 06/04/17 0604 06/03/17 0526 06/02/17 0341 05/30/17 0337 GLU 110* 106 110* < > [...] ABG No results for input(s): PHART, PO2ART, RHX0CCQ, LQV4BZL, BEART, A9XACDVJ in the last 168 h ours. No results for input(s): SPECSOURCE, PHPOCB, PCO2, PO2, HCO3, TCO2, BEART, OZPQ0GGJ in the last 168 hours. Drug of [...] Component Value Units Date/Time Culture, Wound, Smear [[id number]] Collected: 06/01/17 1731 Order Status: Completed Lab [...] above Exam General Alert NAD Cardiac RRR 1/ sys and tele reviewed earlier OK Extremities [...] for her RA) note also on Arava GUIDE Left arm IV site swelling (thrombus) Dr [...] She says PCP is Dr Lima in [place] [facility] Problems Diagnosis No resolved problems to display. (dot meyaddendum tdnorefesh nownorefresh) (dot meyvent) (dot brandiattanna is attestation for malnutrition) Plan Right hip xray today I spoke with Dr Taveras and Dr Lynn I would favor her going to Rehab here Addendum (06/04/2017 18:27) I modified the UA order to allow microscopic and culture if indicated, one therapist though t patient had regressed with behavior (dot meyaddendum tdnorefesh nownorefresh) (dot meytime meycritical meysign) Jarad Montes MD 06/04/2017 12:33 [facility] Reference. This is NOT part of [...] this chart may have been created with [employer] voice recognition software. Occasi onal wrong-word or sound-alike substitutions may have occurred due to the inherent munson itations of voice recognition software. Please read the chart carefully and recognize, using context, where these substitutions have occurred eyer, Jarad Marroquin MD - 06/03/2017 6:54 PM PDT [place] HOSPITALIST PROGRESS NOTE Patient: Dorothea Calvo : 1945: Age: 72 y.o. MedRec: [id number] PCP: Hemanth Lima MD Admission date: 05/26/2017 [...] Daily Garrison Resendiz DO 400 mg at 06/03/17 0907 [...] José Miguel Garcia PA-C 100 mg at 06/02/177 traMADol (ULTRAM) tablet 100 mg 100 mg [...] ABG No results for input(s): PHART, PO2ART, KGK7OUM, QLN8BRW, BEART, H3BXLJOF in the last 168 h ours. No results for input(s): SPECSOURCE, PHPOCB, PCO2, PO2, HCO3, TCO2, BEART, HGMC6DAM in the last 168 hours. Drug of [...] Component Value Units Date/Time Culture, Wound, Smear [[id number]] Collected: 06/01/17 1731 Order Status: Completed Lab [...] completed shifts: In: 2061 [P.O.:1750; I.V.:107; IV Piggyback:] Out: 1974 [Urine:1974] Vitals Ranges: Temp: [36.4 [...] for her RA) note also on Arava GUIDE Left arm IV site swelling (thrombus) Dr [...] She says PCP is Dr Lima in [place] [facility] Problems Diagnosis No resolved problems to display. (dot meyaddendum tdnorefesh nownorefresh) (dot meyvent) (dot malnutattest is attestation for malnutrition) Plan Improving nicely Daughter says goal of [facility] Rehab (dot meyaddendum tdnorefesh nownorefresh) (dot meytime meycritical meysign) Jarad Montes MD 06/03/2017 18:54 [facility] Reference. This is NOT part of [...] this chart may have been created with [employer] voice recognition software. Occasi onal wrong-word or sound-alike substitutions may have occurred due to the inherent munson itations of voice recognition software. Please read the chart carefully and recognize, using context, where these substitutions have occurred Macie St RN - 06/03/2017 6:28 PM PDTPatient has history of frequent falls. Patient moved closer to [facility], room 326 for her safety. Call light in place, bed alarm on. Daughter by bedside . Jeffry Arevalo PA-C - 06/03/2017 7:48 AM PDTFormatting of this note might be different [facility] the [facility] PATIENT NAME: Dorothea [...] tablet 5 mg 5 mg Oral Nightly Jarda Montes MD 5 mg at 06/02/172036 ondansetron [...] has no apparent deficits with short or termite treater memory. MOTOR EXAM: Motor strength is stable 4+/5 R DF and HF SENSORY EXAM: Sensory exam is stable 24 HOUR LABS: All Component Based Labs None ASSESSMENT: NEUROSURGICAL DIAGNOSES: S/p lumbar fusion HOSPITAL/GENERAL DIAGNOSES: Past Medical History: Diagnosis Date Acute pansinusitis Atrial fibrillation ([facility]) 08-18-2016 Atypical chest pain Bilateral leg pain Contusion of knee with skin surface intact Right Anterior COPD (chronic obstructive pulmonary disease) ([facility]) Hyperlipoproteinemia type Li-a Impacted cerumen of right [...] strength, and directions x Pharmacy list names: [facility] [place] x [facility] insurance reported information Vaccines up to date? Yes No Unsure Influenza x Pneumococcal x Tdap x Shingles x Noted medications discrepancies or medication-related issues: Other: Medication: Prior to Admission Sig: Patient taking differently GUIDE as: Leflunomide 20 mg 1 tablet by mouth daily Held for surgery Magnesium 400 mg Take by mouth 1 capsule 3 times weekly Mon, Wed, Fri Cholecalciferol Take by mouth 100 units daily Medication review performed and electronically signed by Darwin Alejandre, Lathe Winder 21:45 Reviewed by: Raisa Duggan PharmD 06/02/2017 23:08 Edin Traylor MD - 06/02/2017 5:40 PM PDT [facility] NEUROSURGERY PROGRESS NOTE PATIENT NAME: [...] mg 4 mg Intravenous Q6H PRN SELIN Vaqsuez 4 mg at 05/29/17 1218 pharmacy consult: [...] has no apparent deficits with short or termite treater memory. MOTOR EXAM: Motor strength is stable 4+/5 R DF and HF SENSORY EXAM: Sensory exam is stable 24 HOUR LABS: All Component Based Labs None ASSESSMENT: NEUROSURGICAL DIAGNOSES: S/p lumbar fusion HOSPITAL/GENERAL DIAGNOSES: Past Medical History: Diagnosis Date Acute pansinusitis Atrial fibrillation ([facility]) 08-18-2016 Atypical chest pain Bilateral leg pain Contusion of knee with skin surface intact Right Anterior COPD (chronic obstructive pulmonary disease) ([facility]) Hyperlipoproteinemia type Li-a Impacted cerumen of right [...] SIGNED BY: Edin Lynn MD, 06/02/2017 17:40 Alexandr, Jarad Marroquin MD - 06/02/2017 7:50 AM PDTFormattin g of this note might be different from the original. [place] HOSPITALIST PROGRESS NOTE Patient: Dorothea Calvo : 1945: Age: 72 y.o. MedRec: [id number] PCP: Hemanth Lima MD Admission date: 05/26/2017 [...] martinez PA-C 1.25 mg at 05/26/17 185 furosemide (LASIX) injection 20 mg 20 mg [...] tablet 20 mEq 20 mEq Oral BID Yann Au MD 20 mEq at 06/01/17 [...] ABG No results for input(s): PHART, PO2ART, FXP2EIP, QLM9WPR, BEART, [id number] in the last 168 h ours. No results for input(s): SPECSOURCE, PHPOCB, PCO2, PO2, HCO3, TCO2, BEART, USBC5CKV in the last 168 hours. Drug of [...] Component Value Units Date/Time Culture, Wound, Smear [[id number]] Collected: 06/01/17 173 Order Status: Sent Lab Status: In process [...] oz) I/O last 24 Hours: In: 1946 [P.O.:194] Out: 2650 [Urine:2650] I/O last 3 completed [...] for her RA) note also on Arava GUIDE Left arm IV site swelling (thrombus) Dr [...] She says PCP is Dr Lima in [place] [facility] Problems Diagnosis No resolved problems to display. (dot meyaddendum tdnorefesh nownorefresh) (dot meyvent) (dot malnutattest is attestation for malnutrition) Plan Zyprexa 5 mg every 9 pm Stopped IV lasix given exam and Echo Pharmacy reviewed GUIDE med list Time spent with the patient (of which more than 50% was in counseling and/or coordination t he patient's care as outlined above) in minutes exceeded 35 minutes. (dot meyaddendum tdnorefesh nownorefresh) (dot meytime meycritical meysign) Jarad Montes MD 06/02/2017 7:50 [facility] Reference. This is NOT part of [...] (such as CHF or CP or Pneumonia) 23 Patient is improved today with resolution of symptoms 24th Worse with recurrence of symptoms requiring further testing Portions of this chart may have been created with [employer] voice recognition software. Occasi onal wrong-word or sound-alike substitutions may have occurred due to the inherent munson itations of voice recognition software. Please read the chart carefully and recognize, using context, where these substitutions have occurred Isacc Madrid MD - 06/02/2017 7:47 AM PDT PATIENT NAME: Dorothea aClvo : 1945: AGE: 72 y.o. ADMISSION DATE: [...] Cardiovascular Palp/Percussion: PMI in 5th ICS at [facility]; no lifts, thrills, palp S3 or S4. [...] He is in a class I of [place] [employer] functional class. There is no fluid retention on physical examin ation. Rate versus rhythm control strategy was discussed with patient. She is now on rhythm con trol strategy with amiodarone Risk of stroke is reviewed today; her risk factors are Hx of HTN (1), Age 65 to 74 (1) an d Female Gender (1), giving her a [id number]-TFFa of 3, estimating a 3= 3.2% risk [...] L5-S1; Surgeon: Edin Lynn MD; on 05/26/17. B. Her main complaint today is thigh [...] made to ensure accuracy; however, inadvertent computerized barback errors may be pre sent. Electronically signed by: Isacc Sears MD 06/02/2017 7:47 est, Jeffry Tyler PA-C - 06/01/2017 2:26 PM PDT [facility] NEUROSURGERY PROGRESS NOTE PATIENT NAME: [...] injection 12.5 mg 12.5 mg Intravenous Q4H PRHenry Garcia PA-C Or diphenhydrAMINE (BENADRYL) tablet 25 mg 25 mg Oral Q4H PRN José Miguel Garcia PA-C 25 mg at 05/28/17 0205 Or diphenhydrAMINE (BENADRYL) 12.5 mg/5 mL liquid 25 mg 25 mg Oral Q4H PRHenry Garcia PA-C docusate sodium (COLACE) capsule 100 [...] has no apparent deficits with short or snf memory. MOTOR EXAM: Motor strength is stable 4+/5 R DF and HF SENSORY EXAM: Sensory exam is stable 24 HOUR LABS: All Component Based Labs None ASSESSMENT: NEUROSURGICAL DIAGNOSES: S/p lumbar fusion HOSPITAL/GENERAL DIAGNOSES: Past Medical History: Diagnosis Date Acute pansinusitis Atrial fibrillation ([facility]) 08-18-2016 Atypical chest pain Bilateral leg pain Contusion of knee with skin surface intact Right Anterior COPD (chronic obstructive pulmonary disease) ([facility]) Hyperlipoproteinemia type Li-a Impacted cerumen of right ear Low back pain Lumbar foraminal stenosis 08/13/2016 Lumbar herniated disc L1/T2 Left Lumbar neuritis L3-L4, L4-L5, L5/S1 Lumbar spondylosis Lumbar stenosis Moderate major depression, single episode ([facility]) Neoplasm of uncertain behavior of skin PONV (postoperative nausea and vomiting) projectile vomitting waking up after surgery Primary localized osteoarthritis of left hip Rheumatoid arthritis involving multiple sites ([facility]) Sacroiliac pain Spinal stenosis, lumbar Lumbar canal [...] MD - 06/01/2017 10:32 A M PDT [facility] PMG Hospitalist Progress Note Dorothea Calvo is a 72 y.o. female ASSESSMENT and PLAN: 1. Atrial fibrillation with RVR This patient has a previous history of paroxysmal atrial fibrillation. Echocardiography ob tained today from [facility] shows a LVEF of 0.65-0.7 with poor acoustic windows on asses [facility] in 08/2016. Echo was repeated today [...] as outlined above. Yann Au 06/01/2017 10:32 [facility] Portions of this chart may have been created with [employer] voice recognition software. Occasi onal wrong-word or sound-alike substitutions may have occurred due to the inherent munson itations of voice recognition software. Please read the chart carefully and recognize, using context, where these substitutions have occurred Garrison Jaffe DO - 05/31/2017 10:55 PM PDT [facility] BRIEF NIGHT COVERAGE NOTE Patient: Dorothea Calvo : 1945: Age: 72 y.o. MedRec: [id number] Admission date: 05/26/2017 Hospital day # : [...] fib in 140s to 150s, on the radiation monitor she tri ed to convert to sinus rhythm for a few seconds and then would go back into A. fib. Patient has received complete infusion of amiodarone earlier in admission and is currently on oral amiodarone 400 mg by mouth twice a day. Assessment/Plan: Discussed case with Dr. Roberts, manager generation immigration consultant, who recommended to con tinue with additional [...] rate control. Garrison Resendiz DO 05/31/2017 22:56 [facility] Portions of this chart may have been created with [employer] voice recognition software. Occasi onal wrong-word or sound-alike substitutions may have occurred due to the inherent munson itations of voice recognition software. Please read the chart carefully and recognize, using context, where these substitutions have occurred ADDENDUM: Patient's potassium came back 3.8 and magnesium 1.8, hence will give 40 oral potassium and 2 g IV magnesium rider. Garrison Resendiz DO 05/31/2017 23:53 [facility] Garrison Resendiz DO at 017 11:53 PM Yann Dumont MD - 05/31/2017 8:13 PM PDT [facility] PMG Hospitalist Progress Note Dorothea Calvo is [...] as outlined above. Yann Au 05/31/2017 20:13 [facility] Portions of this chart may have been created with [employer] voice recognition software. Occasi onal wrong-word or sound-alike substitutions may have occurred due to the inherent munson itations of voice recognition software. Please read the chart carefully and recognize, using context, where these substitutions have occurred A ESTHERYaEdin prieto MD - 9:49 AM PDT [facility] NEUROSURGERY PROGRESS NOTE PATIENT NAME: [...] 30 mL Oral BID PRN José Miguel Garica PA-C 30 mL at 05/28/17 0038 magnesium oxide (MAG-OX) tablet 400 mg 400 mg Oral Daily Garrison Miguelangel Resendiz DO 400 mg at 05/31/17 0830 [...] has no apparent deficits with short or termite treater memory. MOTOR EXAM: Motor strength is stable [...] Anterior COPD (chronic obstructive pulmonary disease) ([facility]) Hyperlipoproteinemia type Li-a Impacted cerumen of right ear Low back pain Lumbar foraminal stenosis 08/13/2016 Lumbar herniated disc L1/T2 Left Lumbar neuritis L3-L4, L4-L5, L5/S1 Lumbar spondylosis Lumbar stenosis Moderate major depression, single episode ([facility]) Neoplasm of uncertain behavior of skin PONV (postoperative nausea and vomiting) projectile vomitting waking up after surgery Primary localized osteoarthritis of left hip Rheumatoid arthritis involving multiple sites ([facility]) Sacroiliac pain Spinal stenosis, lumbar Lumbar canal [...] Garrison Jaffe DO - 05/31/2017 4:22 AM PDTFormlam gongora of this note might be different from the original. [facility] BRIEF NIGHT COVERAGE NOTE Patient: Dorothea Calvo : 1945: Age: 72 y.o. MedRec: [id number] Admission date: 05/26/2017 Hospital day # : [...] and reassess. Garrison Resendiz DO 05/31/2017 4:22 [facility] Portions of this chart may have been created with [employer] voice recognition software. Occasi onal wrong-word or [...] oral Amiodarone. Garrison Resendiz DO 05/31/2017 5:08 [facility] Yann Dumont MD - 05/30/2017 3:58 [...] going to see if the telemetry psychiatry ent consultant is available prior to medicating her. [...] Rincon MD - 05/30/2017 8:27 AM PDT [facility] NEUROSURGERY PROGRESS NOTE PATIENT NAME: [...] has no apparent deficits with short or termite treater memory. MOTOR EXAM: Motor strength is stable 4+/5 R DF SENSORY EXAM: Sensory exam is stable 24 HOUR LABS: All Component Based Labs None ASSESSMENT: NEUROSURGICAL DIAGNOSES: S/p lumbar fusion HOSPITAL/GENERAL DIAGNOSES: Past Medical History: Diagnosis Date Acute pansinusitis Atrial fibrillation ([facility]LY [facility]) 08-18-2016 Atypical chest pain Bilateral leg pain Contusion of knee with skin surface intact Right Anterior COPD (chronic obstructive pulmonary disease) ([facility]) Hyperlipoproteinemia type Li-a Impacted cerumen of right ear Low back pain Lumbar foraminal stenosis 08/13/2016 Lumbar herniated disc L1/T2 Left Lumbar neuritis L3-L4, L4-L5, L5/S1 Lumbar spondylosis Lumbar stenosis Moderate major depression, single episode ([facility]) Neoplasm of uncertain behavior of skin PONV (postoperative nausea and vomiting) projectile vomitting waking up after surgery Primary localized osteoarthritis of left hip Rheumatoid arthritis involving multiple sites ([facility]) Sacroiliac pain Spinal stenosis, lumbar Lumbar canal [...] rodriguez MD - 05/30/2017 7:47 AM PDT [facility] Hospitalist Progress Note Dorothea Calvo is [...] she was using her walker with the LEATHER ROLLER on one side and nurse on the other in the patient's legs gave out and th ey helped her to the ground. VITALS: Temp: [...] as outlined above. Yann Au 05/30/2017 7:47 [facility] Portions of this chart may have been created with [employer] voice recognition software. Occasi onal wrong-word or sound-alike substitutions may have occurred due to the inherent munson itations of voice recognition software. Please read the chart carefully and recognize, using context, where these substitutions have occurred Yann Dumont MD - 0 05/29/2017 11:51 AM PDT [facility] Hospitalist Progress Note Dorothea Calvo is [...] ination the patient's care as outlined above. Ynan Au 05/29/2017 11:54 [facility] Portions of this chart may have been created with [employer] voice recognition software. Occasi onal wrong-word or sound-alike substitutions may have occurred due to the inherent munson itations of voice recognition software. Please read the chart carefully and recognize, using context, where these substitutions have occurred uCorbin ferrer PA - 05/29/2017 8:21 AM PDT [facility] NEUROSURGERY PROGRESS NOTE PATIENT NAME: Dorothea Calvo AGE: 72 y.o. DATE OF SERVICE: 05/29/2017 8:23 S: Patient is doing well this AM. However, she was completely appropriate yesterday AM as w ell. Ultimately she required dosing with dilaudid yesterday [...] 5-15 mg/hr Intrav enous Titrated Garrison Resendiz, Stopped at 05/29/17 0716 diphenhydrAMINE (BENADRYL) injection [...] martinez PA-C 1.25 mg at 05/26/17 185 haloperidol lactate (HALDOL) injection 2-5 mg 2-5 [...] Miguel Garcia PA-C 100 mg at 05/29/17 0612 [...] PRN SHAUN Chapman 50 mg at 05/16 ALLERGIES: Allergies Allergen Reactions Adhesive & Tape [...] has no apparent deficits with short or termite treater memory. MOTOR EXAM: Motor strength is stable 4+/5 Rt DF SENSORY EXAM: Sensory exam is stable 24 HOUR LABS: All Component Based Labs None ASSESSMENT: NEUROSURGICAL DIAGNOSES: S/p lumbar fusion HOSPITAL/GENERAL DIAGNOSES: Past Medical History: Diagnosis Date Acute pansinusitis Atrial fibrillation ([facility]) 08-18-2016 Atypical chest pain Bilateral leg pain Contusion of knee with skin surface intact Right Anterior COPD (chronic obstructive pulmonary disease) ([facility]) Hyperlipoproteinemia type Li-a Impacted cerumen of right [...] note might be different from the original. [facility] Hospitalist Progress Note Dorothea Calvo is [...] A pr eliminary report was sent by [facility] with no significant discrepancy. Dictated and S [...] as outlined above. Yann Au 05/28/2017 18:33 [facility] Portions of this chart may have been created with [employer] voice recognition software. Occasi onal wrong-word or sound-alike substitutions may have occurred due to the inherent munson itations of voice recognition software. Please read the chart carefully and recognize, using context, where these substitutions have occurred A ESTHERSuCorbin ferrer PA - 05/28/2017 8:12 AM PDT [facility] NEUROSURGERY PROGRESS NOTE PATIENT NAME: [...] infusion 5-15 mg/hr Intrav enous Titrated Garrison P Resendiz, DO Stopped at 05/28/17 0239 dilTIAZem (CARDIZEM) 5 mg/mL injection Stopped at 05/28/17 0030 dilTIAZem (CARDIZEM) injection 10 mg 10 mg Intravenous Once Garrison P Marco, DO Sto pped at 05/28/17 0237 diphenhydrAMINE [...] 400 mg 400 mg Oral Daily Garrison Miguelangel Resendiz DO 400 mg at 05/28/17 0613 menthol (HALLS COUGH DROP) lozenge 1 lozenge 1 lozenge Buccal Q2H PRN SELIN NielsenC methocarbamol (ROBAXIN) tablet 750 mg 750 mg [...] SHAUN Chapman 50 mg at 05/16 01/02 221 ALLERGIES: Allergies Allergen Reactions Adhesive & Tape [...] has no apparent deficits with short or termite treater memory. MOTOR EXAM: Motor strength is stable 4+/5 Rt DF SENSORY EXAM: Sensory exam is stable 24 HOUR LABS: All Component Based Labs None ASSESSMENT: NEUROSURGICAL DIAGNOSES: S/p lumbar fusion HOSPITAL/GENERAL DIAGNOSES: Past Medical History: Diagnosis Date Acute pansinusitis Atrial fibrillation ([facility]) 08-18-2016 Atypical chest pain Bilateral leg pain Contusion of knee with skin surface intact Right Anterior COPD (chronic obstructive pulmonary disease) ([facility]) Hyperlipoproteinemia type Li-a Impacted cerumen of right ear Low back pain Lumbar foraminal stenosis 08/13/2016 Lumbar herniated disc L1/T2 Left Lumbar neuritis L3-L4, L4-L5, L5/S1 Lumbar spondylosis Lumbar stenosis Moderate major depression, single episode ([facility]) Neoplasm of uncertain behavior of skin PONV (postoperative nausea and vomiting) projectile vomitting waking up after surgery Primary localized osteoarthritis of left hip Rheumatoid arthritis involving multiple sites ([facility]) Sacroiliac pain Spinal stenosis, lumbar Lumbar canal [...] PA - 05/27/2017 4:46 PM P DT [facility] NEUROSURGERY PROGRESS NOTE PATIENT NAME: [...] this and reports agitation as well with thi s. She was commenting about people in the [...] Q6H PRN SHAUN Lea 10 mg at 05/26/171828 metoclopramide (REGLAN) tablet 10 mg 10 mg [...] Diagnosis Date Acute pansinusitis Atrial fibrillation ([facility]) 08-18-2016 Atypical chest pain Bilateral leg pain Contusion of knee with skin surface intact Right Anterior COPD (chronic obstructive pulmonary disease) ([facility]) Hyperlipoproteinemia type Li-a Impacted cerumen of right [...] home in 1-2 days ELECTRONICALLY SIGNED BY: SHANU Gooden, 05/27/2017 16:[address] RN - 05/27/2017 8:45 AM P Nusrat RN was called into room. Patient found sitting on floor by bed with bed alarm on. Gaby jordan stated that she needed to go to [...] signed by: Macie Mccullough RN 05/27/2017 9:11 Irina, Jeffry Tyler PA-C - 05/27/2017 7:27 AM PDT . [facility] NEUROSURGERY PROGRESS NOTE PATIENT NAME: [...] 10 mg 10 mg Rectal Daily PRN HSAUN Vasquez calcium carbonate (TUMS) chewable tablet 1,000 [...] 1.25 mg 1.25 mg Intravenous Q6H PRN SHAUN Lara-C 1.25 mg at 05/26/17 1859 HYDROmorphone (DILAUDID) [...] Intake/Output Summary (Last 24 hours) at 05/27/17 9562 Last data filed at 05/27/17 0607 Gross [...] has no apparent deficits with short or termite treater memory. MOTOR EXAM: Motor strength is stable 4+/5 Rt DF SENSORY EXAM: Sensory exam is stable 24 HOUR LABS: All Component Based Labs None ASSESSMENT: NEUROSURGICAL DIAGNOSES: S/p lumbar fusion HOSPITAL/GENERAL DIAGNOSES: Past Medical History: Diagnosis Date Acute pansinusitis Atrial fibrillation ([facility]) 08-18-2016 Atypical chest pain Bilateral leg pain Contusion of knee with skin surface intact Right Anterior COPD (chronic obstructive pulmonary disease) ([facility]) Hyperlipoproteinemia type Li-a Impacted cerumen of right ear Low back pain Lumbar foraminal stenosis 08/13/2016 Lumbar herniated disc L1/T2 Left Lumbar neuritis L3-L4, L4-L5, L5/S1 Lumbar spondylosis Lumbar stenosis Moderate major depression, single episode ([facility]) Neoplasm of uncertain behavior of skin PONV (postoperative nausea and vomiting) projectile vomitting waking up after surgery Primary localized osteoarthritis of left hip Rheumatoid arthritis involving multiple sites ([facility]) Sacroiliac pain Spinal stenosis, lumbar Lumbar canal [...] get a stat read from the radiologist, [facility] umented in this encounter Plan of Treatment + [...] | | | 05/22/ | | | 2017:N | | | euromo | | | [...] | | [place] | | | [place] | | | | | | FrameE [...] | | Jackso | | | [place] | +---+--------+ documented in this encounter Results [...] + | [facility] | [address] | [place] | [phone] | | [facility] | | [address] | | | - LABORATORY | | [...] | | | | mg/dL | [facility] | | | | | | MEDICAL | | | | | | CENTER - | | | | | | LABORATORY | | + + + + + + | eGFR if not | >60Comment: GLOMERULAR | >=60 | [facility] | | | | FILTRATION | mL/min/1.73m2 | [facility] | | | [place] | RATE,ESTIMATED | | MEDICAL | | | | mL/min/1.11g7Zxys than | | CENTER - | | [...] ST. | [address] | [place], [place] | [phone] | | [facility] | | [address] | | | - LABORATORY | | [...] [address] | [place] | [phone] | | [facility] | | [address] | | | - LABORATORY | | [...] 7 | 7 - 18 mg/dL | [facility] | | | | | | [facility] | | | | | | MEDICAL | | | | | | CENTER - | | | | | | LABORATORY | | + + + + + + | Creatinine | 0.66 | 0.60 - 1.30 | [facility] | | | | | mg/dL | [facility] | | | | | | MEDICAL | | | | | | CENTER - | | | | | | LABORATORY | | + + + + + + | eGFR if not | >60Comment: GLOMERULAR | >=60 | [facility] | | | | FILTRATION | mL/min/1.73m2 | [facility] | | | [place] | RATE,ESTIMATED | | MEDICAL | | | | mL/min/1.75y7Mman than | | CENTER - | | [...] + | [facility] | [address] | [place] | [phone] | | [facility] | | [address] | | | - LABORATORY | | [...] | Urine | | Yellow, Straw | [facility] | | | | | | MEDICAL | | | | | | CENTER - | | | | | | LABORATORY | | + + + + + + | Clarity | Lazaro (A) | Clear | [facility] | | [...] - 1.030 | [facility] | | | [place], | | | [facility] | | [...] ST. | [address] | [place] | [phone] | | [facility] | | [address] | | | - LABORATORY | | [...] + | [facility] | [address] | [place] | [phone] | | [facility] | | [address] | | | - LABORATORY | | [...] not | >60Comment: GLOMERULAR | >=60 | [facility] | | | | FILTRATION | mL/min/1.73m2 | [facility] | | | [place] | RATE,ESTIMATED | | MEDICAL | | | | mL/min/1.86k6Ucpp than | | CENTER - | | [...] [address] | [place] | [phone] | | [facility] | | [address] | | | - LABORATORY | | [...] | | | | | mg/dL | [facility] | | | | | | MEDICAL | | | | | | CENTER - | | | | | | LABORATORY | | + + + + + + | eGFR if not | >60Comment: GLOMERULAR | >=60 | [facility] | | | | FILTRATION | mL/min/1.73m2 | [facility] | | | [place] | RATE,ESTIMATED | | MEDICAL | | | | mL/min/1.40o5Qsmg than | | CENTER - | | [...] | | | | | mg/dL | [facility] | | | | | | [...] [address] | [place] | [phone] | | [facility] | | [address] | | | - LABORATORY | | [...] + | [facility] | [address] | [place] | [phone] | | [facility] | | [address] | | | - LABORATORY | | [...] mL/min/1.73m2 | [facility] | | | [place] | RATE,ESTIMATED | | MEDICAL | | | | mL/min/1.29g5Efuu than | | CENTER - | | [...] Ratio | appended report. These | | [facility] | | | | results have [...] [address] | [place] | [phone] | | [facility] | | [address] | | | - LABORATORY | | | | + + + + + B Type Natriuretic Peptide (06/02/2017 3:41 AM PDT) + +---------+ + + + | Component | Value | Ref Range | Performed | Pathologist | | | | | At | Signature | + +---------+ + + + | BNP | 162 (H) | <100 pg/mL | [facility] | | | | | [...] + | [facility] | [address] | [place] | [phone] | | [facility] | | [address] | | | - LABORATORY | | | | + + + + + Culture, Wound, Smear (06/01/2017 5:31 PM PDT) + + + + + + | Component | Value | Ref Range | Performed | Pathologist | | | | | At | Signature | + + + + + + | Culture | No Growth | | [facility] | | | | | | [facility] | | | | | | MEDICAL | | | | | | CENTER - | | | | | | LABORATORY | | + + + + + + | Gram Stain | 3+ White Blood Cells | | [facility] | | | Result | | | [facility] | | | | | | MEDICAL | | | | | | CENTER - | | | | | | LABORATORY | | + + + + + + | Gram Stain | 1+ Epithelial cells | | [facility] | | | Result | | | [facility] | | | | | | MEDICAL | | | | | | CENTER - | | | | | | LABORATORY | | + + + + + + | Gram Stain | No organisms seen | | [facility] | | | Result | | | [facility] | | [...] [address] | [place] | [phone] | | [facility] | | [address] | | | - LABORATORY | | [...] [address] | | | Patient Number [id number] Date of Study | | | 06/01/2017 Visit Number [id number] | | | Referring Physician MARCO ZIMMERMAN P Number Date of | | | 1945 [address] [place] | | | SHER[place] | | | KARENA Age 72 year(s) | | | Interpreting BECKY SMITH | | | Sand Temperer ISACC SEARS, | | | | | | Gender Female Nurse | | | Stress Cook [place] | | | Procedure Type of Study [...] Volume: 48.46 ml | | | EF Mvbohzdzx70% Left | | | Ventricle Diastolic Dimension: [...] Volume: 48.46 ml | | | EF Ldkcsuxgw52% | | | | | | Left [...] Number 455 | | DEBRA Patient Number [id number] Date of Study 06/01/2017 Visit Number | | [id number] Referring Physician MARCO Means | | Number Date of 1945 [address] [place] | | [facility] Age 72 year(s) | | Interpreting BECKY SMITH Sand Temperer | | ISACC SEARS MD Gender | [...] LA Volume: 48.46 ml | | EF Jdhckjity62% Left Ventricle Diastolic Dimension: | | 4.83 [...] LA Volume: 48.46 ml | | EF Falmvwisb87% | | | | Left Ventricle | [...] [address] | [place] | [phone] | | [facility] | | [address] | | | - LABORATORY | | [...] 12 | 7 - 18 mg/dL | [facility] | | | | | | [facility] | | | | | | MEDICAL | | | | | | CENTER - | | | | | | LABORATORY | | + + + + + + | Creatinine | 0.56 (L) | 0.60 - 1.30 | [facility] | | | | | mg/dL | [facility] | | | | | | MEDICAL | | | | | | CENTER - | | | | | | LABORATORY | | + + + + + + | eGFR if not | >60Comment: GLOMERULAR | >=60 | [facility] | | | | FILTRATION | mL/min/1.73m2 | [facility] | | | [place] | RATE,ESTIMATED | | MEDICAL | | | | mL/min/1.27k3Xldd than | | CENTER - | | [...] [address] | [place] | [phone] | | [facility] | | [address] | | | - LABORATORY | | | | + + + + + B Type Natriuretic Peptide (06/01/2017 3:46 AM PDT) + +---------+ + + + | Component | Value | Ref Range | Performed | Pathologist | | | | | At | Signature | + +---------+ + + + | BNP | 423 (H) | <100 pg/mL | [facility] | | | | | [...] + | [facility] | [address] | [place] | [phone] | | [facility] | | [address] | | | - LABORATORY | | [...] [address] | [place] | [phone] | | [facility] | | [address] | | | - LABORATORY | | [...] [address] | [place] | [phone] | | [facility] | | [address] | | | - LABORATORY | | | | + + + + + ECG 12 lead (05/31/2017 2:13 PM PDT) + + + + + + | Component | Value | Ref Range | Performed | Pathologist | | | | | At | Signature | + + + + + + | VENTRICULAR | 72 | BPM | MO MUSE | | | RATE EKG | | | | | + + + + + + | ATRIAL RATE | 72 | BPM | WASAM MUSE | | + + + + [...] | | | | TRACIE RAMOS MD ([id number]) | | | | | | on [...] | | | | TRACIE RAMOS MD ([id number]) | | | | | | on [...] arrhythmiaShort | | | | | | [place] intervalNonspecific | | | | | | [...] MD | | | | | | ([id number]) on 05/31/2017 | | | | | [...] by | | | | | | RACHEL DAS, TRACIE ([id number]) | | | | | | on [...] | samples are screened | uIU/mL | [facility] | | | | using a [...] [address] | [place] | [phone] | | [facility] | | [address] | | | - LABORATORY | | [...] | mL/min/1.73m2 | [facility] | | | [place] | RATE,ESTIMATED | | MEDICAL | | | | mL/min/1.69d7Ptyy than | | CENTER - | | [...] + | [facility] | [address] | [place] | [phone] | | [facility] | | [address] | | | - LABORATORY | | | | + + + + + CBC with Differential (05/30/2017 3:36 AM PDT) + + + + + + | Component | Value | Ref Range | Performed | Pathologist | | | | | At | Signature | + + + + + + | WBC | 10.9 | 4.0 - 11.0 K/uL | [facility] [...] + | [facility] | [address] | [place] | [phone] | | [facility] | | [address] | | | - LABORATORY | | [...] | | | | | | TRACIE ([id number]) on | | | | | | [...] Done | | [facility] | | | [place] | | | [facility] | | [...] [address] | [place] | [phone] | | [facility] | | [address] | | | - LABORATORY | | [...] + | [facility] | [address] | [place] | [phone] | | [facility] | | [address] | | | - LABORATORY | | [...] | | | | | | [facility] | | | | | | MEDICAL | | | | | | CENTER - | | | | | | LABORATORY | | + + + + + + | BUN | 9 | 7 - 18 mg/dL | [facility] | | | | | | [facility] | | | | | | MEDICAL | | | | | | CENTER - | | | | | | LABORATORY | | + + + + + + | Creatinine | 0.47 (L) | 0.60 - 1.30 | [facility] | | | | | mg/dL | [facility] | | | | | | MEDICAL | | | | | | CENTER - | | | | | | LABORATORY | | + + + + + + | eGFR if not | >60Comment: GLOMERULAR | >=60 | [facility] | | | | FILTRATION | mL/min/1.73m2 | [facility] | | | [place] | RATE,ESTIMATED | | MEDICAL | | | | mL/min/1.75d5Vcpg than | | CENTER - | | [...] | | | | | mg/dL | [facility] | | | | | | [...] [address] | [place] | [phone] | | [facility] | | [address] | | | - LABORATORY | | [...] MD | | | | | | ([id number]) on 05/28/2017 | | | | | [...] + | [facility] | [address] | [place] | [phone] | | [facility] | | [address] | | | - LABORATORY | | [...] [address] | [place] | [phone] | | [facility] | | [address] | | | - LABORATORY | | | | + + + + + Magnesium (05/27/2017 11:04 PM PDT) + +-------+ + + + | Component | Value | Ref Range | Performed | Pathologist | | | | | At | Signature | + +-------+ + + + | Magnesium | 1.8 | 1.8 - 2.5 mg/dL | [facility] [...] [facility] | [address] | [place], [place] | [phone] | | [facility] | | [address] | | | - LABORATORY | | [...] | | | | TRACIE RAMOS MD ([id number]) | | | | | | on [...] - 1.030 | [facility] | | | [place], | | | [facility] | | [...] | + + + + + | [facility] | [address] | [place] | [phone] | | [facility] | | [address] | | | - LABORATORY | | [...] | | | | | | [facility] | | | | | | [...] [address] | [place] | [phone] | | [facility] | | [address] | | | - LABORATORY | | [...] + | [facility] | [address] | [place] | [phone] | | [facility] | | [address] | | | - LABORATORY | | [...] 0.49 (L) | 0.60 - 1.30 | [facility] | [...] | | | FILTRATION | mL/min/1.73m2 | [facility] | | | [place] | RATE,ESTIMATED | | MEDICAL | | | | mL/min/1.30u3Bqbf than | | CENTER - | | [...] | | | | | mg/dL | [facility] | | | | | | MEDICAL | | | | | | CENTER - | | | | | | LABORATORY | | + + + + + + | Albumin | 2.9 (L) | 3.2 - 5.0 g/dL | [facility] | | | | | | [facility] | | | | | | [...] [address] | [place] | [phone] | | [facility] | | [address] | | | - LABORATORY | | [...] | | Basophils | | K/uL | [facility] | | | | | | [...] ST. | [address] | [place], [place] | [phone] | | [facility] | | [address] | | | - LABORATORY | | [...] | | Dictated and Signed by: Jossue Kenan, MD | | Electronically signed: 05/27/2017 5:42 [...] | | | | TRACIE RAMOS MD ([id number]) | | | | | | on [...] changes. A preliminary report was sent by [facility] with no | | | significant discrepancy. Dictated and Signed by: Ilya Garcia MD | | | Electronically signed: 05/27/2017 [...] | A preliminary report was sent by [facility] with no significant | | discrepancy. | [...] postoperative complication. Dictated and Signed by: Rafael Lima | | MD Zbigniew Electronically signed: 05/26/2017 [...] | | +---+---+ + +---------+ +-----+-------+---+ | ampicillin-sulbactam (UNASYN) 3 [...] +---+---+ | | | +---+---+ + +-------+ +---------+---+ + | bacitracin injection PRN, | Given | 05/26/20 | 50,000 | | Surgical | | Starting Thu05/26/17 at 0854, | | 17 8:54 | Units | | Site | | Intra-op | | AM PDT | | | | + +-------+ +---------+---+ + +---+---+ | | | +---+---+ + +-------+ +--------+---+ + | bupivacaine (liposomal) | Given | 05/26/20 | 20 mLs | | Surgical | | (EXPAREL) 1.3% injection PRN, | | 17 8:54 | | | Site | | Starting Thu05/26/17 at 0854, | | AM PDT | | | | | Intra-op | | | | | | + +-------+ +--------+---+ + +---+---+ | | | +---+---+ + +-------+ +--------+---+ + | bupivacaine 0.5%-EPINEPHrine | Given | 05/26/20 | 20 mLs | | Surgical | | 1:200,000 injection PRN, | | 17 8:54 | | | Site | | Starting Thu05/26/17 at 0854, | | AM PDT | | | | | Intra-op | | | | | | + +-------+ +--------+---+ + +---+---+ | | | +---+---+ + [...] PDT | | | | +-------+ +--------+---+---+ + +---+ | | | + +---+ [...] | | | | 05/26/17 at 1626, Oral route | | | [...] | | TIMES DAILY, First dose on e | | AM PDT | | | [...] PDT | | | | | Starting [facility] 05/26/17 at 1626 | | | | [...] | | | | PRN, Pain, Starting [facility] 05/28/17 | | | | | | [...] | | | | | modification) on [facility] 05/28/17 at | | | | | [...] PDT | | | | | on 06/02/17 at 2100 | | | | | [...] AM PDT | | | | | 05/29/17 at 1215 | | | | [...] | | | | 05/26/17 at 2146, Vesicant. When | | | | | | [...] | | | + +---+ + +-------+ +--------+---+---+ | senna (SENOKOT) tablet [...]
--- OUTSIDE RECORDS SUMMARY | ~2020-04-03 | XMS | Encounter Summary ---
Demographics + + + | Address | [address] | | | [place] [address] | + + + | Home Phone | | + + + | Preferred Language | Unknown | + + + | Marital Status | | + + + | Bahai Affiliation | 1041 | + + + | Race | Unknown | + + + | Ethnic Group | Unknown | + + + Author + + + | Author | [facility] | | | and [place] | + + + | Organization | [facility] | | | and [place] | + + + | Address | Unknown | + + + | Phone | Unavailable | + + + Support + + + + + | Name | Relationship | Address | Phone | + + + + + | Juanita Espinal | ECON | [address] | | | | | [place] | | | | | [address] | | + + + + + Care Team Providers + +------+ + | Care Wildlife Biologist Name | Role | Phone | + [...] + | 10/14/ | Telephone | [facility] | Isacc Sears, | Lab Order | | 2016 | | [facility] [address] | [place] [address] | | | | | [place], | [place], | | | | | [place] [address] | [place] [address] | | | | | [phone] | [phone] | | | | | | | [...] Expires: | | | | | [facility] ([facility]) Encounter | 10/15/2018 | | | | | for lipid screening | | | | | | for cardiovascular | | | | | | disease | | + +------+--------+ + + documented as of this encounter Visit Diagnoses + + | Diagnosis | + + | Atrial fibrillation with [facility] ([facility]) - Primary Atrial fibrillation | + + | Encounter for lipid screening for cardiovascular disease | + + documented in this encounter"
--- OUTSIDE RECORDS SUMMARY | ~2020-04-03 | XMS | Encounter Summary ---
Demographics + + + | Address | [address] | | | [place] [address] | + + + | Home Phone | | + + + | Preferred Language | Unknown | + + + | Marital Status | | + + + | Synagogue Affiliation | 1041 | + + + | Race | Unknown | + + + | Ethnic Group | Unknown | + + + Author + + + | Author | [facility] | | | and [place] | + + + | Organization | [facility] | | | and [place] | + + + | Address | Unknown | + + + | Phone | Unavailable | + + + Support + + + + + | Name | Relationship | Address | Phone | + + + + + | Juanita Espinal | ECON | [address] | | | | | [place] | | | | | [address] | | + + + + + Care Team Providers + +------+ + | Care Sheet Rock Applicator Name | Role | Phone | + [...] [address] | | | | | [place], [place] | [place] [address] | | | | | [address] | [phone] | | | | | [phone] | | | +--------+ + + + [...]
--- OUTSIDE RECORDS SUMMARY | ~2020-04-03 | XMS | Encounter Summary ---
Demographics + + + | Address | [address] | | | [place] [address] | + + + | Home Phone | | + + + | Preferred Language | Unknown | + + + | Marital Status | | + + + | Protestant Affiliation | 1041 | + + + | Race | Unknown | + + + | Ethnic Group | Unknown | + + + Author + + + | Author | [facility] | | | and [place] | + + + | Organization | [facility] | | | and [place] | + + + | Address | Unknown | + + + | Phone | Unavailable | + + + Support + + + + + | Name | Relationship | Address | Phone | + + + + + | Juanita Espinal | ECON | [address] | | | | | [place] | | | | | [address] | | + + + + + Care Team Providers + +------+ + | Care Video Systems Engineer Name | Role | Phone | [...] | | | | | | | [place] ARTHDSIS | | | | | | | POST/POSTERO | | | | | | | LATRL/POSTIN | | | | | | | TERBODY | | | | | | | LUMBAR [place] | | | | | | | SPINE | | | | | | | FUSN,POST | | | | | | | TECH,EA | | | | | | | ADDNL SGMT | | | | | | | IL SPINE | | | | | | | FUSN,POST | | | | | | | TECH,EA | | | | | | | ADDNL SGMT | | | | | | | IL SPINE | | | | | | | FUSN,POST | | | | | | | TECH,EA | | | | | | | ADDNL SGMT | | | | | | | IL LUMBAR | | | | | | | SPINE | | | | | | | FUSION,ANTER | | | | | | | APPRCH IL | | | | | | | SPINAL | | | | | | | FUSION,ANT,E | | | | | | | A ADNL LEVEL | | | | | | | IL SPINAL | | | | | | [...] | | | | | | SEG IL | | | | | | | LAMINEC/FACE | | | | | | | TECT/FORAMIN | | | | | | | ,EACH ADDNL | | | | | | | IL | | | | | | | LAMINEC/FACE | | | | | | | TECT/FORAMIN | | | | | | | ,EACH ADDNL | | | | | | | IL INSJ | | | | | | | BIOMCHN DEV | | | | | | | INTERVERTEBR | | | | | | | AL DSC SPC | | | | | | | W/ARTHRD IL | | | | | | | INSJ | | | | | | | BIOMCHN DEV | | | | | | | INTERVERTEBR | | | | | | | AL DSC SPC | | | | | | | W/ARTHRD IL | | | | | | | INSJ | | | | | | | BIOMCHN DEV | | | | | | | INTERVERTEBR | | | | | | | AL DSC SPC | | | | | | | W/ARTHRD IL | | | | | | | [...] + + | 05/26/ | Surgery | [facility] | Edin Lynn MD | L2-3, L3-4, L4-5 | | 2017 | | MED CTR OR INTRA OP | [address] | Lateral Anterior | | | | [address] | [place] [address] | Interbody Fusion; | | | | HARDEEP Sousa | [phone] | L5-S1 Transforaminal | | | | [id number] | | Lumbar Interbody | | | | [phone] | | Fusion; Posterior | | | [...] of admission the patient was admitted to [facility] and underwent a L2-S1 f usion. Patient [...] by: José Miguel Garcia, 06/06/2017 8:39 [facility] documented in this encounter Discharge Instructions Instructions [...] month post op appointment before your appointment. [id number] [employer] [place] [address], [place] [id number]. All righ ts reserved. This information is [...] might be diffe rent from the original. [facility] NEUROSURGERY PROGRESS NOTE PATIENT NAME: Dorothea Calvo [...] has no apparent deficits with short or group home memory. MOTOR EXAM: Motor strength is stable 4+/5 R DF and HF SENSORY EXAM: Sensory exam is stable 24 HOUR LABS: All Component Based Labs None ASSESSMENT: NEUROSURGICAL DIAGNOSES: S/p lumbar fusion A Fib Mental status changes improved HOSPITAL/GENERAL DIAGNOSES: Past Medical History: Diagnosis Date Acute pansinusitis Atrial fibrillation ([facility]) 08-18-2016 Atypical chest pain Bilateral leg pain Contusion of knee with skin surface intact Right Anterior COPD (chronic obstructive pulmonary disease) ([facility]) Hyperlipoproteinemia type Li-a Impacted cerumen of right ear Low back pain Lumbar foraminal stenosis 08/13/2016 Lumbar herniated disc L1/T2 Left Lumbar neuritis L3-L4, L4-L5, L5/S1 Lumbar spondylosis Lumbar stenosis Moderate major depression, single episode ([facility]) Neoplasm of uncertain behavior of skin PONV (postoperative nausea and vomiting) projectile vomitting waking up after surgery Primary localized osteoarthritis of left hip Rheumatoid arthritis involving multiple sites ([facility]) Sacroiliac pain Spinal stenosis, [...] MD - 06/05/2017 1:[address] [facility] [place] [facility] HOSPITALIST PROGRESS NOTE Patient: Dorothea Calvo : 1945: Age: 72 y.o. MedRec: [id number] PCP: Hemanth Lima MD Admission date: 05/26/2017 [...] ABG No results for input(s): PHART, PO2ART, XKS1VNG, CRA6BYB, BEART, [id number] in the last 168 h ours. No results for input(s): SPECSOURCE, PHPOCB, PCO2, PO2, HCO3, TCO2, BEART, [id number] in the last 168 hours. Drug of [...] Filed Weights: 05/26/17 0622 05/26/17 1630 05/27/17 2343 05/29/17 0135 Weight: 72.1 kg (159 lb) [...] is eating better Says won't go to [place] (says if not [facility] rehab then home with family support) No [...] for her RA) note also on [employer] NETWORK SECURITY ARCHITECT Left arm IV site swelling (thrombus) Dr Hall saw her and felt it was resolving (after sp ontaneous draining) does recommend warm compresses and antibiotics for several days Acute metabolic encephalopathy Depression, unspecified depression type Anxiety state, unspecified Delirium due to multiple etiologies Zyprexa had helped and iSmon restarting on at 9 pm low dose 5 mg Tele Psych consult on (patient has developed cognitive deficits over the pasty year an d delerium here) with recommend Zyprexa low dose (seroquel other option less cardiac effects ) is improved but impulsive, She says PCP is Dr Lima in [place] Resolved [facility] Problems Diagnosis No resolved problems to display. (dot meyaddendum tdnorefesh nownorefresh) (dot meyvent) (dot malnutattest is attestation for malnutrition) Plan Placement vs home pending Tele ended (dot meyaddendum tdnorefesh nownorefresh) (dot meytime meycritical meysign) Jarad Montes MD 06/05/2017 13:50 [facility] Reference. This is NOT part of [...] this chart may have been created with [employer] recognition software. Occasi onal wrong-word or sound-alike substitutions may have occurred due to the inherent munson itations of voice recognition software. Please read the chart carefully and recognize, using context, where these substitutions have occurred est, Jeffry Tyler PA-C - 06/05/2017 7:39 AM PDT [facility] NEUROSURGERY PROGRESS NOTE PATIENT NAME: Dorothea Calvo AGE: 72 y.o. DATE OF SERVICE: 06/05/2017 7:39 S: The patient did better yesterday. Pain is reasonably controlled. We have claudia working t [facility]. The patient has been voiding and [...] Intake/Output Summary (Last 24 hours) at 06/05/17 0726 Last data filed at 06/05/17 0532 Gross [...] has no apparent deficits with short or superintendent container terminal memory. MOTOR EXAM: Motor strength is stable 4+/5 R DF and HF SENSORY EXAM: Sensory exam is stable 24 HOUR LABS: All Component Based Labs None ASSESSMENT: NEUROSURGICAL DIAGNOSES: S/p lumbar fusion A Fib Mental status changes improved HOSPITAL/GENERAL DIAGNOSES: Past Medical History: Diagnosis Date Acute pansinusitis Atrial fibrillation ([facility]) 08-18-2016 Atypical chest pain Bilateral leg pain Contusion of knee with skin surface intact Right Anterior COPD (chronic obstructive pulmonary disease) ([facility]) Hyperlipoproteinemia type Li-a Impacted cerumen of right ear Low back pain Lumbar foraminal stenosis 08/13/2016 Lumbar herniated disc L1/T2 Left Lumbar neuritis L3-L4, L4-L5, L5/S1 Lumbar spondylosis Lumbar stenosis Moderate major depression, single episode ([facility]) Neoplasm of uncertain behavior of skin PONV (postoperative nausea and vomiting) projectile vomitting waking up after surgery Primary localized osteoarthritis of left hip Rheumatoid arthritis involving multiple sites ([facility]) Sacroiliac pain Spinal stenosis, [...] MD - 06/04/2017 12:33 P M PDT [place] HOSPITALIST PROGRESS NOTE Patient: Dorothea Calvo : 1945: Age: 72 y.o. MedRec: [id number] PCP: Hemanth Lima MD Admission date: 05/26/2017 [...] ABG No results for input(s): PHART, PO2ART, PLX8GRW, ZQL2BAB, BEART, [id number] in the last 168 h ours. No results for input(s): SPECSOURCE, PHPOCB, PCO2, PO2, HCO3, TCO2, BEART, [id number] in the last 168 hours. Drug of [...] Component Value Units Date/Time Culture, Wound, Smear [[id number]] Collected: 06/01/17 1731 Order Status: Completed Lab [...] for her RA) note also on [employer] NETWORK SECURITY ARCHITECT Left arm IV site swelling (thrombus) Dr [...] She says PCP is Dr Lima in [place] [facility] Problems Diagnosis No resolved problems to display. (dot meyaddendum tdnorefesh nownorefresh) (dot meyvent) (dot brandiattanna is attestation for malnutrition) Plan Right hip xray today I spoke with Dr Taversa and Dr Lynn I would favor her going to Rehab here Addendum (06/04/2017 18:27) I modified the UA order to allow microscopic and culture if indicated, one therapist though t patient had regressed with behavior (dot meyaddendum tdnorefesh nownorefresh) (dot meytime meycritical meysign) Jarad Montes MD 06/04/2017 12:33 [facility] Reference. This is NOT part of [...] this chart may have been created with [email or web address] voice recognition software. Occasi onal wrong-word or sound-alike substitutions may have occurred due to the inherent munson itations of voice recognition software. Please read the chart carefully and recognize, using context, where these substitutions have occurred eyer, Jarad Marroquin MD - 06/03/2017 6:54 PM PDT [place] HOSPITALIST PROGRESS NOTE Patient: Dorothea Calvo : 1945: Age: 72 y.o. MedRec: [id number] PCP: Hemanth Lima MD Admission date: 05/26/2017 [...] 5 mg 5 mg Oral Nightly Jarad Motnes MD 5 mg at 06/02/172036 ondansetron (ZOFRAN [...] ABG No results for input(s): PHART, PO2ART, SHQ9BLR, XWH6NCM, BEART, [id number] in the last 168 h ours. No results for input(s): SPECSOURCE, PHPOCB, PCO2, PO2, HCO3, TCO2, BEART, [id number] in the last 168 hours. Drug of [...] Component Value Units Date/Time Culture, Wound, Smear [[id number]] Collected: 06/01/17 1731 Order Status: Completed Lab [...] for her RA) note also on [employer] NETWORK SECURITY ARCHITECT Left arm IV site swelling (thrombus) Dr [...] She says PCP is Dr Lima in [place] Resolved [facility] Problems Diagnosis No resolved problems to display. (dot meyaddendum tdnorefesh nownorefresh) (dot meyvent) (dot malnutattest is attestation for malnutrition) Plan Improving nicely Daughter says goal of [facility] Rehab (dot meyaddendum tdnorefesh nownorefresh) (dot meytime meycritical meysign) Jarad Montes MD 06/03/2017 18:54 [facility] Reference. This is NOT part of [...] this chart may have been created with [email or web address] voice recognition software. Occasi onal wrong-word or sound-alike substitutions may have occurred due to the inherent munson itations of voice recognition software. Please read the chart carefully and recognize, using context, where these substitutions have occurred Macie St RN - 06/03/2017 6:28 PM PDTPatient has history of frequent falls. Patient moved closer to [employer] station, room 326 for her safety. Call light in place, bed alarm on. Daughter by bedside . Jeffry Arevalo PA-C - 06/03/2017 7:48 AM PDTFormatting of this note might be different [facility] PATIENT NAME: Dorothea [...] has no apparent deficits with short or superintendent container terminal memory. MOTOR EXAM: Motor strength is stable 4+/5 R DF and HF SENSORY EXAM: Sensory exam is stable 24 HOUR LABS: All Component Based Labs None ASSESSMENT: NEUROSURGICAL DIAGNOSES: S/p lumbar fusion HOSPITAL/GENERAL DIAGNOSES: Past Medical History: Diagnosis Date Acute pansinusitis Atrial fibrillation ([facility]) 08-18-2016 Atypical chest pain Bilateral leg pain Contusion of knee with skin surface intact Right Anterior COPD (chronic obstructive pulmonary disease) ([facility]) Hyperlipoproteinemia type Li-a Impacted cerumen [...] and directions x Pharmacy list names: [facility] [place] x [facility] insurance reported information Vaccines up to date? Yes No Unsure Influenza x Pneumococcal x Tdap x Shingles x Noted medications discrepancies or medication-related issues: Other: Medication: Prior to Admission Sig: Patient taking differently NETWORK SECURITY ARCHITECT as: Leflunomide 20 mg 1 tablet by mouth daily Held for surgery Magnesium 400 mg Take by mouth 1 capsule 3 times weekly Mon, Wed, Fri Cholecalciferol Take by mouth 100 units daily Medication review performed and electronically signed by Darwin Alejandre, Assembly Machine Tool Setter 21:45 Reviewed by: Raisa Duggan PharmD 06/02/2017 23:08 Edin Traylor MD - 06/02/2017 5:40 PM PDT [facility] NEUROSURGERY PROGRESS NOTE PATIENT NAME: Dorothea Calvo [...] has no apparent deficits with short or superintendent container terminal memory. MOTOR EXAM: Motor strength is stable 4+/5 R DF and HF SENSORY EXAM: Sensory exam is stable 24 HOUR LABS: All Component Based Labs None ASSESSMENT: NEUROSURGICAL DIAGNOSES: S/p lumbar fusion HOSPITAL/GENERAL DIAGNOSES: Past Medical History: Diagnosis Date Acute pansinusitis Atrial fibrillation ([facility]) 08-18-2016 Atypical chest pain Bilateral leg pain Contusion of knee with skin surface intact Right Anterior COPD (chronic obstructive pulmonary disease) ([facility]) Hyperlipoproteinemia type Li-a Impacted cerumen [...] note might be different from the original. [place] HOSPITALIST PROGRESS NOTE Patient: Dorothea Calvo : 1945: Age: 72 y.o. MedRec: [id number] PCP: Hemanth Lima MD Admission date: 05/26/2017 [...] mg 100 mg Oral BID José Miguel Gacria PA-C 1 00 mg at 06/01/172033 enalaprilat (VASOTEC) injection 1.25 mg 1.25 mg Intravenous Q6H PRN José Miguel martinez PA-C 1.25 mg at 05/26/17 185 furosemide (LASIX) injection 20 mg 20 mg Intravenous BID (8 and 16) Yann uA MD 20 mg at 06/01/17 1600 HYDROmorphone [...] ABG No results for input(s): PHART, PO2ART, HTU2SWU, YSJ8ARD, BEART, [id number] in the last 168 h ours. No results for input(s): SPECSOURCE, PHPOCB, PCO2, PO2, HCO3, TCO2, BEART, [id number] in the last 168 hours. Drug of [...] Component Value Units Date/Time Culture, Wound, Smear [[id number]] Collected: 06/01/17 173 Order Status: Sent Lab [...] for her RA) note also on [employer] NETWORK SECURITY ARCHITECT Left arm IV site swelling (thrombus) Dr [...] She says PCP is Dr Lima in [place] [facility] Problems Diagnosis No resolved problems to display. (dot meyaddendum tdnorefesh nownorefresh) (dot meyvent) (dot malnutattest is attestation for malnutrition) Plan Zyprexa 5 mg every 9 pm Stopped IV lasix given exam and Echo Pharmacy reviewed NETWORK SECURITY ARCHITECT med list Time spent with the patient (of which more than 50% was in counseling and/or coordination t he patient's care as outlined above) in minutes exceeded 35 minutes. (dot meyaddendum tdnorefesh nownorefresh) (dot meytime meycritical meysign) Jaard Montes MD 06/02/2017 7:50 [facility] Reference. This is NOT part of [...] this chart may have been created with [email or web address] voice recognition software. Occasi onal wrong-word or [...] Cardiovascular Palp/Percussion: PMI in 5th ICS at [facility]; no lifts, thrills, palp S3 or S4. [...] He is in a class I of [employer] [employer] functional class. There is no fluid retention on physical examin ation. Rate versus rhythm control strategy was discussed with patient. She is now on rhythm con trol strategy with amiodarone Risk of stroke is reviewed today; her risk factors are Hx of HTN (1), Age 65 to 74 (1) an d Female Gender (1), giving her a [id number] of 3, estimating a 3= 3.2% risk [...] made to ensure accuracy; however, inadvertent computerized cabinet professional errors may be pre sent. Electronically signed by: Isacc Sears MD 06/02/2017 7:47 est, Jeffry Tyler PA-C - 06/01/2017 2:26 PM PDT [facility] NEUROSURGERY PROGRESS NOTE PATIENT NAME: Dorothea Calvo [...] mg 4 mg Intravenous Q6H PRN SELIN aVsquez 4 mg at 05/29/17 1218 phenol (CHLORASEPTIC) [...] has no apparent deficits with short or group home memory. MOTOR EXAM: Motor strength is stable 4+/5 R DF and HF SENSORY EXAM: Sensory exam is stable 24 HOUR LABS: All Component Based Labs None ASSESSMENT: NEUROSURGICAL DIAGNOSES: S/p lumbar fusion HOSPITAL/GENERAL DIAGNOSES: Past Medical History: Diagnosis Date Acute pansinusitis Atrial fibrillation ([facility]) 08-18-2016 Atypical chest pain Bilateral leg pain Contusion of knee with skin surface intact Right Anterior COPD (chronic obstructive pulmonary disease) ([facility]) Hyperlipoproteinemia type Li-a Impacted cerumen of right ear Low back pain Lumbar foraminal stenosis 08/13/2016 Lumbar herniated disc L1/T2 Left Lumbar neuritis L3-L4, L4-L5, L5/S1 Lumbar spondylosis Lumbar stenosis Moderate major depression, single episode ([facility]) Neoplasm of uncertain behavior of skin PONV (postoperative nausea and vomiting) projectile vomitting waking up after surgery Primary localized osteoarthritis of left hip Rheumatoid arthritis involving multiple sites ([facility]) Sacroiliac pain Spinal stenosis, [...] MD - 06/01/2017 10:32 A M PDT [facility] PMG Hospitalist Progress Note Dorothea Calvo is a 72 y.o. female ASSESSMENT and PLAN: 1. Atrial fibrillation with RVR This patient has a previous history of paroxysmal atrial fibrillation. Echocardiography ob tained today from [facility] shows a LVEF of 0.65-0.7 with [facility]. Echo was repeated today [...] as outlined above. Yann Au 06/01/2017 10:32 [facility] Portions of this chart may have been created with [email or web address] voice recognition software. Occasi onal wrong-word or sound-alike substitutions may have occurred due to the inherent munson itations of voice recognition software. Please read the chart carefully and recognize, using context, where these substitutions have occurred Garrison Jaffe DO - 05/31/2017 10:[address] [facility] BRIEF NIGHT COVERAGE NOTE Patient: Dorothea Calvo : 1945: Age: 72 y.o. MedRec: [id number] Admission date: 05/26/2017 Hospital day # : [...] fib in 140s to 150s, on the pet stylist she tri ed to convert to sinus rhythm for a few seconds and then would go back into A. fib. Patient has received complete infusion of amiodarone earlier in admission and is currently on oral amiodarone 400 mg by mouth twice a day. Assessment/Plan: Discussed case with Dr. Roberts, surveyor's assistant television engineering teacher, who recommended to con tinue with additional [...] rate control. Garrison Resendiz DO 05/31/2017 22:56 [facility] Portions of this chart may have been created with [email or web address] voice recognition software. Occasi onal wrong-word or sound-alike substitutions may have occurred due to the inherent munson itations of voice recognition software. Please read the chart carefully and recognize, using context, where these substitutions have occurred ADDENDUM: Patient's potassium came back 3.8 and magnesium 1.8, hence will give 40 oral potassium and 2 g IV magnesium rider. Garrison Resendiz DO 05/31/2017 23:53 [facility] by Garrison Resendiz DO at 017 11:53 PM Yann Dumont MD - 05/31/2017 8:13 PM PDT [facility] PMG Hospitalist Progress Note Dorothea [...] as outlined above. Yann Au 05/31/2017 20:13 [facility] Portions of this chart may have been created with [email or web address] voice recognition software. Occasi onal wrong-word or sound-alike substitutions may have occurred due to the inherent munson itations of voice recognition software. Please read the chart carefully and recognize, using context, where these substitutions have occurred A ESTHERYaEdin prieto MD - 9:49 AM PDT [facility] NEUROSURGERY PROGRESS NOTE PATIENT NAME: Dorothea Calvo [...] has no apparent deficits with short or superintendent container terminal memory. MOTOR EXAM: Motor strength is stable [...] Right Anterior COPD (chronic obstructive pulmonary disease) ([facility]) Hyperlipoproteinemia type Li-a Impacted cerumen of right ear Low back pain Lumbar foraminal stenosis 08/13/2016 Lumbar herniated disc L1/T2 Left Lumbar neuritis L3-L4, L4-L5, L5/S1 Lumbar spondylosis Lumbar stenosis Moderate major depression, single episode ([facility]) Neoplasm of uncertain behavior of skin PONV (postoperative nausea and vomiting) projectile vomitting waking up after surgery Primary localized osteoarthritis of left hip Rheumatoid arthritis involving multiple sites ([facility]) Sacroiliac pain Spinal stenosis, [...] note might be different from the original. [facility] BRIEF NIGHT COVERAGE NOTE Patient: Dorothea Calvo : 1945: Age: 72 y.o. MedRec: [id number] Admission date: 05/26/2017 Hospital day # : [...] and reassess. Garrison Resendiz DO 05/31/2017 4:22 [facility] Portions of this chart may have been created with [email or web address] voice recognition software. Occasi onal wrong-word or [...] oral Amiodarone. Garrison Resendiz DO 05/31/2017 5:08 [facility] Yann Dumont MD - 05/30/2017 3:58 [...] going to see if the telemetry psychiatry qm consultant is available prior to medicating her. [...] Rincon MD - 05/30/2017 8:27 AM PDT [facility] NEUROSURGERY PROGRESS NOTE PATIENT NAME: Dorothea Calvo [...] has no apparent deficits with short or superintendent container terminal memory. MOTOR EXAM: Motor strength is stable 4+/5 R DF SENSORY EXAM: Sensory exam is stable 24 HOUR LABS: All Component Based Labs None ASSESSMENT: NEUROSURGICAL DIAGNOSES: S/p lumbar fusion HOSPITAL/GENERAL DIAGNOSES: Past Medical History: Diagnosis Date Acute pansinusitis Atrial fibrillation ([facility]) 08-18-2016 Atypical chest pain Bilateral leg pain Contusion of knee with skin surface intact Right Anterior COPD (chronic obstructive pulmonary disease) ([facility]) Hyperlipoproteinemia type Li-a Impacted cerumen of right ear Low back pain Lumbar foraminal stenosis 08/13/2016 Lumbar herniated disc L1/T2 Left Lumbar neuritis L3-L4, L4-L5, L5/S1 Lumbar spondylosis Lumbar stenosis Moderate major depression, single episode ([facility]) Neoplasm of uncertain behavior of skin PONV (postoperative nausea and vomiting) projectile vomitting waking up after surgery Primary localized osteoarthritis of left hip Rheumatoid arthritis involving multiple sites ([facility]) Sacroiliac pain Spinal stenosis, [...] rodriguez MD - 05/30/2017 7:47 AM PDT [facility] PMG Hospitalist Progress Note Dorothea [...] she was using her walker with the GRINDER DRESSER on one side and nurse on the [...] as outlined above. Yann Au 05/30/2017 7:47 [facility] Portions of this chart may have been created with [email or web address] voice recognition software. Occasi onal wrong-word or sound-alike substitutions may have occurred due to the inherent munson itations of voice recognition software. Please read the chart carefully and recognize, using context, where these substitutions have occurred Yann Dumont MD - 0 05/29/2017 11:51 AM PDT [facility] PMG Hospitalist Progress Note Dorothea [...] as outlined above. Yann Au 05/29/2017 11:54 [facility] Portions of this chart may have been created with [email or web address] voice recognition software. Occasi onal wrong-word or sound-alike substitutions may have occurred due to the inherent munson itations of voice recognition software. Please read the chart carefully and recognize, using context, where these substitutions have occurred uCorbin ferrer PA - 05/29/2017 8:21 AM PDT [facility] NEUROSURGERY PROGRESS NOTE PATIENT NAME: Dorothea Calvo [...] has no apparent deficits with short or superintendent container terminal memory. MOTOR EXAM: Motor strength is stable 4+/5 Rt DF SENSORY EXAM: Sensory exam is stable 24 HOUR LABS: All Component Based Labs None ASSESSMENT: NEUROSURGICAL DIAGNOSES: S/p lumbar fusion HOSPITAL/GENERAL DIAGNOSES: Past Medical History: Diagnosis Date Acute pansinusitis Atrial fibrillation ([facility]) 08-18-2016 Atypical chest pain Bilateral leg pain Contusion of knee with skin surface intact Right Anterior COPD (chronic obstructive pulmonary disease) ([facility]) Hyperlipoproteinemia type Li-a Impacted cerumen [...] note might be different from the original. [facility] Hospitalist Progress Note Dorothea [...] A pr eliminary report was sent by [employer] with no significant discrepancy. Dictated and S [...] as outlined above. Yann Au 05/28/2017 18:33 [facility] Portions of this chart may have been created with [email or web address] voice recognition software. Occasi onal wrong-word or sound-alike substitutions may have occurred due to the inherent munson itations of voice recognition software. Please read the chart carefully and recognize, using context, where these substitutions have occurred A ESTHERSuCorbin ferrer PA - 05/28/2017 8:12 AM PDT [facility] NEUROSURGERY PROGRESS NOTE PATIENT NAME: Dorothea Calvo [...] has no apparent deficits with short or superintendent container terminal memory. MOTOR EXAM: Motor strength is stable 4+/5 Rt DF SENSORY EXAM: Sensory exam is stable 24 HOUR LABS: All Component Based Labs None ASSESSMENT: NEUROSURGICAL DIAGNOSES: S/p lumbar fusion HOSPITAL/GENERAL DIAGNOSES: Past Medical History: Diagnosis Date Acute pansinusitis Atrial fibrillation ([facility]) 08-18-2016 Atypical chest pain Bilateral leg pain Contusion of knee with skin surface intact Right Anterior COPD (chronic obstructive pulmonary disease) ([facility]) Hyperlipoproteinemia type Li-a Impacted cerumen of right ear Low back pain Lumbar foraminal stenosis 08/13/2016 Lumbar herniated disc L1/T2 Left Lumbar neuritis L3-L4, L4-L5, L5/S1 Lumbar spondylosis Lumbar stenosis Moderate major depression, single episode ([facility]) Neoplasm of uncertain behavior of skin PONV (postoperative nausea and vomiting) projectile vomitting waking up after surgery Primary localized osteoarthritis of left hip Rheumatoid arthritis involving multiple sites ([facility]) Sacroiliac pain Spinal stenosis, [...] PA - 05/27/2017 4:46 PM P DT [facility] NEUROSURGERY PROGRESS NOTE PATIENT NAME: Dorothea Calvo [...] History: Diagnosis Date Acute pansinusitis Atrial fibrillation ([facility]) 08-18-2016 Atypical chest pain Bilateral leg pain Contusion of knee with skin surface intact Right Anterior COPD (chronic obstructive pulmonary disease) ([facility]) Hyperlipoproteinemia type Li-a Impacted cerumen [...] PA-C - 05/27/2017 7:27 AM PDT . [facility] NEUROSURGERY PROGRESS NOTE PATIENT NAME: Dorothea Calvo [...] Intake/Output Summary (Last 24 hours) at 05/27/17 8581 Last data filed at 05/27/17 0607 Gross [...] has no apparent deficits with short or superintendent container terminal memory. MOTOR EXAM: Motor strength is stable 4+/5 Rt DF SENSORY EXAM: Sensory exam is stable 24 HOUR LABS: All Component Based Labs None ASSESSMENT: NEUROSURGICAL DIAGNOSES: S/p lumbar fusion HOSPITAL/GENERAL DIAGNOSES: Past Medical History: Diagnosis Date Acute pansinusitis Atrial fibrillation ([facility]) 08-18-2016 Atypical chest pain Bilateral leg pain Contusion of knee with skin surface intact Right Anterior COPD (chronic obstructive pulmonary disease) ([facility]) Hyperlipoproteinemia type Li-a Impacted cerumen of right ear Low back pain Lumbar foraminal stenosis 08/13/2016 Lumbar herniated disc L1/T2 Left Lumbar neuritis L3-L4, L4-L5, L5/S1 Lumbar spondylosis Lumbar stenosis Moderate major depression, single episode ([facility]) Neoplasm of uncertain behavior of skin PONV (postoperative nausea and vomiting) projectile vomitting waking up after surgery Primary localized osteoarthritis of left hip Rheumatoid arthritis involving multiple sites ([facility]) Sacroiliac pain Spinal stenosis, [...] of d ouble vision. RN stated other usarez was normal from a neuro standpoint other [...] get a stat read from the radiologist, [facility] umented in this encounter Plan of Treatment [...] | | [place] | | | [place] | | | | | | FrameE [...] | | [place] | | | [place] | +---+--------+ documented in this encounter Results [...] + | [facility] | [address] | [place] | [phone] | | [facility] | | [address] | | | - LABORATORY | | [...] mL/min/1.73m2 | [facility] | | | [place] | RATE,ESTIMATED | | MEDICAL | | | | mL/min/1.17a2Gpsm than | | CENTER - | | [...] ST. | [address] | [place], [place] | [phone] | | [facility] | | [address] | | | - LABORATORY | | [...] [address] | [place] | [phone] | | [facility] | | [address] | | | - LABORATORY | | [...] | 0.66 | 0.60 - 1.30 | [facility] | | | | | mg/dL | [facility] | | | | | | MEDICAL | | | | | | CENTER - | | | | | | LABORATORY | | + + + + + + | eGFR if not | >60Comment: GLOMERULAR | >=60 | [facility] | | | | FILTRATION | mL/min/1.73m2 | [facility] | | | [place] | RATE,ESTIMATED | | MEDICAL | | | | mL/min/1.21r4Ztyd than | | CENTER - | | [...] + | [facility] | [address] | [place] | [phone] | | [facility] | | [address] | | | - LABORATORY | | [...] - 1.030 | [facility] | | | [place], | | | [facility] | | [...] ST. | [address] | [place] | [phone] | | [facility] | | [address] | | | - LABORATORY | | [...] + | [facility] | [address] | [place] | [phone] | | [facility] | | [address] | | | - LABORATORY | | [...] mL/min/1.73m2 | [facility] | | | [place] | RATE,ESTIMATED | | MEDICAL | | | | mL/min/1.08q5Iuwe than | | CENTER - | | [...] [address] | [place] | [phone] | | [facility] | | [address] | | | - LABORATORY | | [...] | | | | | mg/dL | [facility] | | | | | | MEDICAL | | | | | | CENTER - | | | | | | LABORATORY | | + + + + + + | eGFR if not | >60Comment: GLOMERULAR | >=60 | [facility] | | | | FILTRATION | mL/min/1.73m2 | [facility] | | | PANAMANIAN | RATE,ESTIMATED | | MEDICAL | | | | mL/min/1.18y9Zpbg than | | CENTER - | | [...] | | | | | mg/dL | [facility] | | | | | | MEDICAL [...] [address] | [place] | [phone] | | [facility] | | [address] | | | - LABORATORY | | [...] + | [facility] | [address] | [place] | [phone] | | [facility] | | [address] | | | - LABORATORY | | [...] mL/min/1.73m2 | [facility] | | | [place] | RATE,ESTIMATED | | MEDICAL | | | | mL/min/1.71v4Hjcc than | | CENTER - | | [...] Ratio | appended report. These | | [facility] | | | | results have been [...] [address] | [place] | [phone] | | [facility] | | [address] | | | - LABORATORY | | [...] + | [facility] | [address] | [place] | [phone] | | [facility] | | [address] | | | - LABORATORY | | [...] [address] | [place] | [phone] | | [facility] | | [address] | | | - LABORATORY | | [...] [address] | | | Patient Number [id number] Date of Study | | | 06/01/2017 Visit Number [id number] | | | Referring Physician MARCO ZIMMERMAN P Number Date of | | | 1945 Orthotics Assistant TOLU | | | SHERWIN | | | KARENA Age 72 year(s) | | | Interpreting BECKY SMITH | | | Category Analyst ISACC SEARS, | | | | | | Gender Female Nurse | | | Stress Settlement Worker | | | Procedure Type of Study [...] Volume: 48.46 ml | | | EF Azvmaxeex86% Left | | | Ventricle Diastolic Dimension: [...] Volume: 48.46 ml | | | EF Zfrorppel11% | | | | | | Left [...] Number 455 | | DEBRA Patient Number [id number] Date of Study 06/01/2017 Visit Number | | [id number] Referring Physician MARCO Means | | Number Date of 1945 Orthotics Assistant TOLU COURTNEY | | [facility] Age 72 year(s) | | Interpreting BECKY SMITH Category Analyst | | ISACC SEARS MD Gender | [...] LA Volume: 48.46 ml | | EF Njgndtomr49% Left Ventricle Diastolic Dimension: | | 4.83 [...] LA Volume: 48.46 ml | | EF Pfwwyjfza10% | | | | Left Ventricle | [...] [address] | [place] | [phone] | | [facility] | | [address] | | | - LABORATORY | | [...] 0.56 (L) | 0.60 - 1.30 | [facility] | | | | | mg/dL [...] mL/min/1.73m2 | [facility] | | | PANA[place]IAN | RATE,ESTIMATED | | MEDICAL | | | | mL/min/1.06o7Ndgd than | | CENTER - | | [address] | [place] | [phone] | | [facility] | | [address] | | | - LABORATORY | | [...] + | [facility] | [address] | [place] | [phone] | | [facility] | | [address] | | | - LABORATORY | | [...] [address] | [place] | [phone] | | [facility] | | [address] | | | - LABORATORY | | [...] [address] | [place] | [phone] | | [facility] | | [address] | | | - LABORATORY | | [...] | | | | TRACIE RAMOS MD ([id number]) | | | | | | on [...] | | | | TRACIE RAMOS MD ([id number]) | | | | | | on [...] arrhythmiaShort | | | | | | [place] intervalNonspecific | | | | | | [...] MD | | | | | | ([id number]) on 05/31/2017 | | | | | [...] | | | | RACHEL DAS, TRACIE ([id number]) | | | | | | on [...] [address] | [place] | [phone] | | [facility] | | [address] | | | - LABORATORY | | [...] | mL/min/1.73m2 | [facility] | | | PA[place] | RATE,ESTIMATED | | MEDICAL | | | | mL/min/1.96o7Snhv than | | CENTER - | | [...] + | [facility] | [address] | [place] | [phone] | | [facility] | | [address] | | | - LABORATORY | | [...] + | [facility] | [address] | [place] | [phone] | | [facility] | | [address] | | | - LABORATORY | | [...] | | | | | | TRACIE ([id number]) on | | | | | | [...] [address] | [place] | [phone] | | [facility] | | [address] | | | - LABORATORY | | [...] + | [facility] | [address] | [place] | [phone] | | [facility] | | [address] | | | - LABORATORY | | [...] mL/min/1.73m2 | [facility] | | | [place] | RATE,ESTIMATED | | MEDICAL | | | | mL/min/1.64b2Isgv than | | CENTER - | | [...] [address] | [place] | [phone] | | [facility] | | [address] | | | - LABORATORY | | [...] MD | | | | | | ([id number]) on 05/28/2017 | | | | | [...] + | [facility] | [address] | [place] | [phone] | | [facility] | | [address] | | | - LABORATORY | | [...] [address] | [place] | [phone] | | [facility] | | [address] | | | - LABORATORY | | [...] ST. | [address] | [place], [place] | [phone] | | [facility] | | [address] | | | - LABORATORY | | [...] | | | | TRACIE RAMOS MD ([id number]) | | | | | | on [...] - 1.030 | [facility] | | | [place], | | | [facility] | | [...] ST. | [address] | [place] | [phone] | | [facility] | | [address] | | | - LABORATORY | | [...] | | | | | | [facility] | | | | | | MEDICAL [...] [address] | [place] | [phone] | | [facility] | | [address] | | | - LABORATORY | | [...] + | [facility] | [address] | [place] | [phone] | | [facility] | | [address] | | | - LABORATORY | | [...] | | | FILTRATION | mL/min/1.73m2 | [facility] | | | PANA[place]IAN | RATE,ESTIMATED | | MEDICAL | | | | mL/min/1.02p2Jruc than | | CENTER - | | [...] | | | | | mg/dL | [facility] | | | | | | MEDICAL | | | | | | CENTER - | | | | | | LABORATORY | | + + + + + + | Albumin | 2.9 (L) | 3.2 - 5.0 g/dL | [facility] | | | | | | [facility] | | | | | | MEDICAL [...] [address] | [place] | [phone] | | [facility] | | [address] | | | - LABORATORY | | [...] | | Basophils | | K/uL | [facility] | | | | | [...] ST. | [address] | [place], [place] | [phone] | | [facility] | | [address] | | | - LABORATORY | | [...] | | | | TRACIE RAMOS MD ([id number]) | | | | | | on [...] changes. A preliminary report was sent by [employer] with no | | | significant discrepancy. [...] | A preliminary report was sent by [employer] with no significant | | discrepancy. | [...] PDT | | | | | Starting Counts Include [facility] 05/26/17 at 1626 | | | [...] | | | | PRN, Pain, Starting [facility] 05/28/17 | | | | | | [...] | | | | | modification) on [facility] 05/28/17 at | | | | | [...]
--- OUTSIDE RECORDS SUMMARY | ~2020-04-03 | XMS | Encounter Summary ---
Demographics + + + | Address | [address] | | | [place] [address] | + + + | Home Phone | | + + + | Preferred Language | Unknown | + + + | Marital Status | | + + + | Yazidism Affiliation | [id number] | + + + | Race | Unknown | + + + | Ethnic Group | Unknown | + + + Author + + + | Author | [facility] | | | and [place] | + + + | Organization | [facility] | | | and [place] | + + + | Address | Unknown | + + + | Phone | Unavailable | + + + Support + + + + + | Name | Relationship | Address | Phone | + + + + + | Juanita Espinal | ECON | [address] | | | | | [place] | | | | | [phone] | | + + + + + Care Team Providers + +------+ + | Care Travel Assistant Name | Role | Phone | [...] | | | | | | | AR ARTHDSIS | | | | | | | POST/POSTERO | | | | | | | LATRL/POSTIN | | | | | | | TERBODY | | | | | | | LUMBAR AR | | | | | | | SPINE | | | | | | | FUSN,POST | | | | | | | TECH,EA | | | | | | | ADDNL SGMT | | | | | | | AR SPINE | | | | | | | FUSN,POST | | | | | | | TECH,EA | | | | | | | ADDNL SGMT | | | | | | | AR SPINE | | | | | | | FUSN,POST | | | | | | | TECH,EA | | | | | | | ADDNL SGMT | | | | | | | AR LUMBAR | | | | | | | SPINE | | | | | | | FUSION,ANTER | | | | | | | APPRCH AR | | | | | | | SPINAL | | | | | | | FUSION,ANT,E | | | | | | | A ADNL LEVEL | | | | | | | AR SPINAL | | | | | | [...] | | | | | | SEG AR | | | | | | | LAMINEC/FACE | | | | | | | TECT/FORAMIN | | | | | | | ,EACH ADDNL | | | | | | | AR | | | | | | | LAMINEC/FACE | | | | | | | TECT/FORAMIN | | | | | | | ,EACH ADDNL | | | | | | | AR INSJ | | | | | | | BIOMCHN DEV | | | | | | | INTERVERTEBR | | | | | | | AL DSC SPC | | | | | | | W/ARTHRD AR | | | | | | | INSJ | | | | | | | BIOMCHN DEV | | | | | | | INTERVERTEBR | | | | | | | AL DSC SPC | | | | | | | W/ARTHRD AR | | | | | | | INSJ | | | | | | | BIOMCHN DEV | | | | | | | INTERVERTEBR | | | | | | | AL DSC SPC | | | | | | | W/ARTHRD AR | | | | | | | [...] + + | 05/26/ | Hospital | [facility] | Edin Lynn MD | Gait abnormality | | 2017 - | Encounter | MED CTR SUR[facility] | [address] | (Primary Dx); Atrial | | | | [address] | [place] [address] | fibrillation with | | 06/06/ | | [place] [id number] | [phone] | RVR (HCC); Status | | 2016 | | [phone] | | post lumbar spinal | | [...] of admission the patient was admitted to [facility] and underwent a L2-S1 f usion. Patient [...] by: José Miguel Garcia, 06/06/2017 8:39 [facility] documented in this encounter Discharge [...] month post op appointment before your appointment. [phone] [employer]. [address] [place] [address], [place] [address]. All [facility] reserved. This information is not intended [...] might be diffe rent from the original. [facility] NEUROSURGERY PROGRESS NOTE PATIENT NAME: Dorothea [...] has no apparent deficits with short or longterm memory. MOTOR EXAM: Motor strength is stable 4+/5 R DF and HF SENSORY EXAM: Sensory exam is stable 24 HOUR LABS: All Component Based Labs None ASSESSMENT: NEUROSURGICAL DIAGNOSES: S/p lumbar fusion A Fib Mental status changes improved HOSPITAL/GENERAL DIAGNOSES: Past Medical History: Diagnosis Date Acute pansinusitis Atrial fibrillation ([facility]) 08-18-2016 Atypical chest pain Bilateral leg pain Contusion of knee with skin surface intact Right Anterior COPD (chronic obstructive pulmonary disease) ([facility]) Hyperlipoproteinemia type Li-a Impacted cerumen of right ear Low back pain Lumbar foraminal stenosis 08/13/2016 Lumbar herniated disc L1/T2 Left Lumbar neuritis L3-L4, L4-L5, L5/S1 Lumbar spondylosis Lumbar stenosis Moderate major depression, single episode ([facility]) Neoplasm of uncertain behavior of skin PONV (postoperative nausea and vomiting) projectile vomitting waking up after surgery Primary localized osteoarthritis of left hip Rheumatoid arthritis involving multiple sites ([facility]) Sacroiliac pain Spinal stenosis, lumbar [...] MD - 06/05/2017 1:4 9 PM PDT [facility] [place] [facility] HOSPITALIST PROGRESS NOTE Patient: Dorothea Calvo : 1945: Age: 72 y.o. MedRec: [id number] PCP: Hemanth Lima MD Admission date: 05/26/2017 [...] g 17 g Oral Daily José Miguel aGrcia PA-C 17 g at 06/01/17 0858 predniSONE [...] ABG No results for input(s): PHART, PO2ART, KCN4TUT, EER8UAA, BEART, [id number] in the last 168 h ours. No results for input(s): SPECSOURCE, PHPOCB, PCO2, PO2, HCO3, TCO2, BEART, [id number] in the last 168 hours. Drug of [...] is eating better Says won't go to [place] (says if not [facility] rehab then home with family support) No [...] for her RA) note also on [employer] Left arm IV site swelling (thrombus) Dr [...] She says PCP is Dr Lima in [place] [facility] Problems Diagnosis No resolved problems to display. (dot meyaddendum tdnorefesh nownorefresh) (dot meyvent) (dot malnutattest is attestation for malnutrition) Plan Placement vs home pending Tele ended (dot meyaddendum tdnorefesh nownorefresh) (dot meytime meycritical meysign) Jarad Montes MD 06/05/2017 13:50 [facility]. This is NOT part of the [...] this chart may have been created with [employer] voice recognition software. Occasi onal wrong-word or sound-alike substitutions may have occurred due to the inherent munson itations of voice recognition software. Please read the chart carefully and recognize, using context, where these substitutions have occurred Jeffry Arevalo PA-C - 06/05/2017 7:[address] [facility] NEUROSURGERY PROGRESS NOTE PATIENT NAME: Dorothea Calvo AGE: 72 y.o. DATE OF SERVICE: 06/05/2017 7:39 S: The patient did better yesterday. Pain is reasonably controlled. We have [facility] rehab. The patient has been voiding and [...] has no apparent deficits with short or lobsterman memory. MOTOR EXAM: Motor strength is stable 4+/5 R DF and HF SENSORY EXAM: Sensory exam is stable 24 HOUR LABS: All Component Based Labs None ASSESSMENT: NEUROSURGICAL DIAGNOSES: S/p lumbar fusion A Fib Mental status changes improved HOSPITAL/GENERAL DIAGNOSES: Past Medical History: Diagnosis Date Acute pansinusitis Atrial fibrillation ([facility]) 08-18-2016 Atypical chest pain Bilateral leg pain Contusion of knee with skin surface intact Right Anterior COPD (chronic obstructive pulmonary disease) ([facility]) Hyperlipoproteinemia type Li-a Impacted cerumen of right ear Low back pain Lumbar foraminal stenosis 08/13/2016 Lumbar herniated disc L1/T2 Left Lumbar neuritis L3-L4, L4-L5, L5/S1 Lumbar spondylosis Lumbar stenosis Moderate major depression, single episode ([facility]) Neoplasm of uncertain behavior of [...] MD - 06/04/2017 12:33 P M PDT [place] HOSPITALIST PROGRESS NOTE Patient: Dorothea Calvo : 1945: Age: 72 y.o. MedRec: [id number] PCP: Hemanth Lima MD Admission date: 05/26/2017 [...] 4 mg 4 mg Intravenous Q6H PRN SELNI Vasquez 4 mg at 05/29/17 1218 phenol [...] ABG No results for input(s): PHART, PO2ART, MGC5ZWE, WMH8OZC, BEART, [id number] in the last 168 h ours. No results for input(s): SPECSOURCE, PHPOCB, PCO2, PO2, HCO3, TCO2, BEART, [id number] in the last 168 hours. Drug of [...] Component Value Units Date/Time Culture, Wound, Smear [[id number]] Collected: 06/01/17 1731 Order Status: Completed Lab [...] for her RA) note also on [employer] Left arm IV site swelling (thrombus) Dr [...] She says PCP is Dr Lima in [place] [facility] Diagnosis No resolved problems [...] meycritical meysign) Jarad Montes MD 06/04/2017 12:33 [facility]. This is NOT part of the [...] this chart may have been created with [employer] voice recognition software. Occasi onal wrong-word or sound-alike substitutions may have occurred due to the inherent munson itations of voice recognition software. Please read the chart carefully and recognize, using context, where these substitutions have occurred eyer, Jarad Marroquin MD - 06/03/2017 6:54 PM PDT [facility] HOSPITAL[facility] PROGRESS NOTE Patient: Dorothea Calvo : 1945: Age: 72 y.o. MedRec: [id number] PCP: Hemanth Lima MD Admission date: 05/26/2017 [...] 30 mL Oral BID PRN José Miguel Gacria PA-C 30 mL at 05/28/17 0038 magnesium [...] ABG No results for input(s): PHART, PO2ART, VVO2XNA, TUR6TFX, BEART, [id number] in the last 168 h ours. No results for input(s): SPECSOURCE, PHPOCB, PCO2, PO2, HCO3, TCO2, BEART, [id number] in the last 168 hours. Drug of [...] Component Value Units Date/Time Culture, Wound, Smear [[id number]] Collected: 06/01/17 4016 Order Status: Completed Lab Status: Final result [...] for her RA) note also on [employer] Left arm IV site swelling (thrombus) Dr [...] She says PCP is Dr Lima in [place] [facility] Diagnosis No resolved problems to display. (dot meyaddendum tdnorefesh nownorefresh) (dot meyvent) (dot malnutattest is attestation for malnutrition) Plan Improving nicely Daughter says goal of [facility] Rehab (dot meyaddendum tdnorefesh nownorefresh) (dot meytime meycritical meysign) Jarad Montes MD 06/03/2017 18:54 [facility]. This is NOT part of the [...] this chart may have been created with [employer] voice recognition software. Occasi onal wrong-word or sound-alike substitutions may have occurred due to the inherent munson itations of voice recognition software. Please read the chart carefully and recognize, using context, where these substitutions have occurred Macie St RN - 06/03/2017 6:28 PM PDTPatient has history of frequent falls. Patient moved closer to [facility], room 326 for her safety. Call light in place, bed alarm on. Daughter by bedside . Jeffry Arevalo PA-C - 06/03/2017 7:48 AM PDTFormatting of this note might be different from the [facility] NEUROSURGERY PROGRESS NOTE PATIENT NAME: Dorothea [...] Garrisonla nena Resendiz DO 400 mg at 06/02/17 0812 [...] has no apparent deficits with short or longterm memory. MOTOR EXAM: Motor strength is stable [...] Right Anterior COPD (chronic obstructive pulmonary disease) ([facility]) Hyperlipoproteinemia type Li-a Impacted cerumen of right ear Low back pain Lumbar foraminal stenosis 08/13/2016 Lumbar herniated disc L1/T2 Left Lumbar neuritis L3-L4, L4-L5, L5/S1 Lumbar spondylosis Lumbar stenosis Moderate major depression, single episode ([facility]) Neoplasm of uncertain behavior of skin PONV (postoperative nausea and vomiting) projectile vomitting waking up after surgery Primary localized osteoarthritis of left hip Rheumatoid arthritis involving multiple sites ([facility]) Sacroiliac pain Spinal stenosis, lumbar [...] Prior to Admission Sig: Patient taking differently [employer] as: Leflunomide 20 mg 1 tablet by mouth daily Held for surgery Magnesium 400 mg Take by mouth 1 capsule 3 times weekly Mon, Wed, Fri Cholecalciferol Take by mouth 100 units daily Medication review performed and electronically signed by Darwin Alejandre, Graphics Coordinator 21:45 Reviewed by: Raisa Duggan, PharmMarion 06/02/2017 23:08 Edin Traylor MD - 06/02/2017 5:[address] [facility] NEUROSURGERY PROGRESS NOTE PATIENT NAME: Dorothea [...] has no apparent deficits with short or longterm memory. MOTOR EXAM: Motor strength is stable 4+/5 R DF and HF SENSORY EXAM: Sensory exam is stable 24 HOUR LABS: All Component Based Labs None ASSESSMENT: NEUROSURGICAL DIAGNOSES: S/p lumbar fusion HOSPITAL/GENERAL DIAGNOSES: Past Medical History: Diagnosis Date Acute pansinusitis Atrial fibrillation ([facility]) 08-18-2016 Atypical chest pain Bilateral leg pain Contusion of knee with skin surface intact Right Anterior COPD (chronic obstructive pulmonary disease) ([facility]) Hyperlipoproteinemia type Li-a Impacted cerumen [...] might be different from the original. [facility] [place] HOSPITALIST PROGRESS NOTE Patient: Dorothea Calvo : 1945: Age: 72 y.o. MedRec: [id number] PCP: Hemanth Lima MD Admission date: 05/26/2017 [...] ABG No results for input(s): PHART, PO2ART, UES4RID, FIX9WKE, BEART, [id number] in the last 168 h ours. No results for input(s): SPECSOURCE, PHPOCB, PCO2, PO2, HCO3, TCO2, BEART, [id number] in the last 168 hours. Drug of [...] Component Value Units Date/Time Culture, Wound, Smear [[id number]] Collected: 06/01/171730 Order Status: Sent Lab Status: [...] for her RA) note also on [employer] Left arm IV site swelling (thrombus) Dr [...] She says PCP is Dr Lima in [place] [facility] Diagnosis No resolved problems to display. (dot meyaddendum tdnorefesh nownorefresh) (dot meyvent) (dot malnutattest is attestation for malnutrition) Plan Zyprexa 5 mg every 9 pm Stopped IV lasix given exam and [facility] Pharmacy reviewed [employer] med list Time spent with the patient (of which more than 50% was in counseling and/or coordination t he patient's care as outlined above) in minutes exceeded 35 minutes. (dot meyaddendum tdnorefesh nownorefresh) (dot meytime meycritical meysign) Jarad Montes MD 06/02/2017 7:50 [facility]. This is NOT part of the [...] this chart may have been created with [employer] voice recognition software. Occasi onal wrong-word or [...] He is in a class I of [place] [employer] functional class. There is no fluid retention on physical examin ation. Rate versus rhythm control strategy was discussed with patient. She is now on rhythm con trol strategy with amiodarone Risk of stroke is reviewed today; her risk factors are Hx of HTN (1), Age 65 to 74 (1) an d Female Gender (1), giving her a [id number] of 3, estimating a 3= 3.2% risk [...] made to ensure accuracy; however, inadvertent computerized portal architect errors may be pre sent. Electronically signed by: Isacc Sears MD 06/02/2017 7:47 est, Jeffry Tyler PA-C - 06/01/2017 2:[address] [facility] NEUROSURGERY PROGRESS NOTE PATIENT NAME: Dorothea [...] has no apparent deficits with short or lobsterman memory. MOTOR EXAM: Motor strength is stable 4+/5 R DF and HF SENSORY EXAM: Sensory exam is stable 24 HOUR LABS: All Component Based Labs None ASSESSMENT: NEUROSURGICAL DIAGNOSES: S/p lumbar fusion HOSPITAL/GENERAL DIAGNOSES: Past Medical History: Diagnosis Date Acute pansinusitis Atrial fibrillation ([facility]) 08-18-2016 Atypical chest pain Bilateral leg pain Contusion of knee with skin surface intact Right Anterior COPD (chronic obstructive pulmonary disease) ([facility]) Hyperlipoproteinemia type Li-a Impacted cerumen of right ear Low back pain Lumbar foraminal stenosis 08/13/2016 Lumbar herniated disc L1/T2 Left Lumbar neuritis L3-L4, L4-L5, L5/S1 Lumbar spondylosis Lumbar stenosis Moderate major depression, single episode ([facility]) Neoplasm of uncertain behavior of [...] MD - 06/01/2017 10:32 A M PDT Merged with [facility]G Hospitalist Progress Note Dorothea Calvo is a 72 y.o. female ASSESSMENT and PLAN: 1. Atrial fibrillation with RVR This patient has a previous history of paroxysmal atrial fibrillation. Echocardiography ob tained today from [facility] shows a LVEF of 0.65-0.7 with poor acoustic windows on asses [facility] in 08/2016. Echo was repeated today [...] as outlined above. Yann Au 06/01/2017 10:32 [facility] Portions of this chart may have been created with [employer] voice recognition software. Occasi onal wrong-word or sound-alike substitutions may have occurred due to the inherent munson itations of voice recognition software. Please read the chart carefully and recognize, using context, where these substitutions have occurred Garrison Jaffe DO - 05/31/2017 10:55 PM PDT [facility] BRIEF NIGHT COVERAGE NOTE Patient: Dorothea Calvo : 1945: Age: 72 y.o. MedRec: [id number] Admission date: 05/26/2017 Hospital day # : [...] fib in 140s to 150s, on the strategic debriefing specialist she tri ed to convert to sinus rhythm for a few seconds and then would go back into A. fib. Patient has received complete infusion of amiodarone earlier in admission and is currently on oral amiodarone 400 mg by mouth twice a day. Assessment/Plan: Discussed case with Dr. Roberts, bowling ball assembler dining chair seat cushion trimmer, who recommended to con tinue with additional [...] rate control. Garrison Resendiz DO 05/31/2017 22:56 [facility] Portions of this chart may have been created with [employer] voice recognition software. Occasi onal wrong-word or sound-alike substitutions may have occurred due to the inherent munson itations of voice recognition software. Please read the chart carefully and recognize, using context, where these substitutions have occurred ADDENDUM: Patient's potassium came back 3.8 and magnesium 1.8, hence will give 40 oral potassium and 2 g IV magnesium rider. Garrison Resendiz DO 05/31/2017 23:53 [facility] signed by Garrison Resendiz DO at 017 11:53 PM Yann Dumont MD - 05/31/2017 8:13 PM PDT Merged with [facility] PMG Hospitalist Progress Note Dorothea Calvo is [...] as outlined above. Yann Au 05/31/2017 20:13 [facility] Portions of this chart may have been created with [employer] voice recognition software. Occasi onal wrong-word or sound-alike substitutions may have occurred due to the inherent munson itations of voice recognition software. Please read the chart carefully and recognize, using context, where these substitutions have occurred Edin Traylor MD - 9:[address] [facility] NEUROSURGERY PROGRESS NOTE PATIENT NAME: Dorothea [...] mg 10 mg Intravenous Q6H PRN SHAUN eLa 10 mg at 05/26/17 1829 metoclopramide (REGLAN) [...] has no apparent deficits with short or longterm memory. MOTOR EXAM: Motor strength is stable 4+/5 R DF and HF SENSORY EXAM: Sensory exam is stable 24 HOUR LABS: All Component Based Labs None ASSESSMENT: NEUROSURGICAL DIAGNOSES: S/p lumbar fusion HOSPITAL/GENERAL DIAGNOSES: Past Medical History: Diagnosis Date Acute pansinusitis Atrial fibrillation ([facility]) 08-18-2016 Atypical chest pain Bilateral leg pain Contusion of knee with skin surface intact Right Anterior COPD (chronic obstructive pulmonary disease) ([facility]) Hyperlipoproteinemia type Li-a Impacted cerumen of right ear Low back pain Lumbar foraminal stenosis 08/13/2016 Lumbar herniated disc L1/T2 Left Lumbar neuritis L3-L4, L4-L5, L5/S1 Lumbar spondylosis Lumbar stenosis Moderate major depression, single episode ([facility]) Neoplasm of uncertain behavior of skin PONV (postoperative nausea and vomiting) projectile vomitting waking up after surgery Primary localized osteoarthritis of left hip Rheumatoid arthritis involving multiple sites ([facility]) Sacroiliac pain Spinal stenosis, lumbar [...] note might be different from the original. [facility] BRIEF NIGHT COVERAGE NOTE Patient: Dorothea Calvo : 1945: Age: 72 y.o. MedRec: [id number] Admission date: 05/26/2017 Hospital day # : [...] and reassess. Garrison Resendiz DO 05/31/2017 4:22 [facility] Portions of this chart may have been created with [employer] voice recognition software. Occasi onal wrong-word or [...] oral Amiodarone. Garrison Resendiz DO 05/31/2017 5:08 [facility] Yann Dumont MD - 05/30/2017 3:58 PM [...] going to see if the telemetry psychiatry sales consultant residential manager is available prior to medicating her. I [...] Rincon MD - 05/30/2017 8:[address] [facility] NEUROSURGERY PROGRESS NOTE PATIENT NAME: Dorothea [...] has no apparent deficits with short or lobsterman memory. MOTOR EXAM: Motor strength is stable 4+/5 R DF SENSORY EXAM: Sensory exam is stable 24 HOUR LABS: All Component Based Labs None ASSESSMENT: NEUROSURGICAL DIAGNOSES: S/p lumbar fusion HOSPITAL/GENERAL DIAGNOSES: Past Medical History: Diagnosis Date Acute pansinusitis Atrial fibrillation ([facility]) 08-18-2016 Atypical chest pain Bilateral leg pain Contusion of knee with skin surface intact Right Anterior COPD (chronic obstructive pulmonary disease) ([facility]) Hyperlipoproteinemia type Li-a Impacted cerumen of right ear Low back pain Lumbar foraminal stenosis 08/13/2016 Lumbar herniated disc L1/T2 Left Lumbar neuritis L3-L4, L4-L5, L5/S1 Lumbar spondylosis Lumbar stenosis Moderate major depression, single episode ([facility]) Neoplasm of uncertain behavior of skin PONV (postoperative nausea and vomiting) projectile vomitting waking up after surgery Primary localized osteoarthritis of left hip Rheumatoid arthritis involving multiple sites ([facility]) Sacroiliac pain Spinal stenosis, lumbar [...] rodriguez MD - 05/30/2017 7:47 AM PDT Merged with [facility] PMG Hospitalist Progress Note Dorothea Calvo is [...] she was using her walker with the RADIOLOGIST DIAGNOSTIC on one side and nurse on the [...] as outlined above. Yann Au 05/30/2017 7:47 [facility] Portions of this chart may have been created with [employer] voice recognition software. Occasi onal wrong-word or sound-alike substitutions may have occurred due to the inherent munson itations of voice recognition software. Please read the chart carefully and recognize, using context, where these substitutions have occurred Yann Dumont MD - 0 05/29/2017 11:51 AM PDT Merged with [facility] PMG Hospitalist Progress Note Dorothea Calvo is [...] as outlined above. Yann Au 05/29/2017 11:54 [facility] Portions of this chart may have been created with [employer] voice recognition software. Occasi onal wrong-word or sound-alike substitutions may have occurred due to the inherent munson itations of voice recognition software. Please read the chart carefully and recognize, using context, where these substitutions have occurred A ESTHERSuCorbin ferrer PA - 05/29/2017 8:[address] [facility] NEUROSURGERY PROGRESS NOTE PATIENT NAME: Dorothea [...] has no apparent deficits with short or lobsterman memory. MOTOR EXAM: Motor strength is stable 4+/5 Rt DF SENSORY EXAM: Sensory exam is stable 24 HOUR LABS: All Component Based Labs None ASSESSMENT: NEUROSURGICAL DIAGNOSES: S/p lumbar fusion HOSPITAL/GENERAL DIAGNOSES: Past Medical History: Diagnosis Date Acute pansinusitis Atrial fibrillation ([facility]) 08-18-2016 Atypical chest pain Bilateral leg pain Contusion of knee with skin surface intact Right Anterior COPD (chronic obstructive pulmonary disease) ([facility]) Hyperlipoproteinemia type Li-a Impacted cerumen [...] note might be different from the original. Merged with [facility] PMG Hospitalist Progress Note Dorothea Calvo is [...] A pr eliminary report was sent by [employer] with no significant discrepancy. Dictated and S [...] as outlined above. Yann Au 05/28/2017 18:33 [facility] Portions of this chart may have been created with [employer] voice recognition software. Occasi onal wrong-word or sound-alike substitutions may have occurred due to the inherent munson itations of voice recognition software. Please read the chart carefully and recognize, using context, where these substitutions have occurred uCorbin ferrer PA - 05/28/2017 8:[address] [facility] NEUROSURGERY PROGRESS NOTE PATIENT NAME: Dorothea [...] has no apparent deficits with short or longterm memory. MOTOR EXAM: Motor strength is stable 4+/5 Rt DF SENSORY EXAM: Sensory exam is stable 24 HOUR LABS: All Component Based Labs None ASSESSMENT: NEUROSURGICAL DIAGNOSES: S/p lumbar fusion HOSPITAL/GENERAL DIAGNOSES: Past Medical History: Diagnosis Date Acute pansinusitis Atrial fibrillation ([facility]) 08-18-2016 Atypical chest pain Bilateral leg pain Contusion of knee with skin surface intact Right Anterior COPD (chronic obstructive pulmonary disease) ([facility]) Hyperlipoproteinemia type Li-a Impacted cerumen of right ear Low back pain Lumbar foraminal stenosis 08/13/2016 Lumbar herniated disc L1/T2 Left Lumbar neuritis L3-L4, L4-L5, L5/S1 Lumbar spondylosis Lumbar stenosis Moderate major depression, single episode ([facility]) Neoplasm of uncertain behavior of skin PONV (postoperative nausea and vomiting) projectile vomitting waking up after surgery Primary localized osteoarthritis of left hip Rheumatoid arthritis involving multiple sites ([facility]) Sacroiliac pain Spinal stenosis, lumbar [...] PA - 05/27/2017 4:[address] [facility] NEUROSURGERY PROGRESS NOTE PATIENT NAME: Dorothea [...] Right Anterior COPD (chronic obstructive pulmonary disease) ([facility]) Hyperlipoproteinemia type Li-a Impacted cerumen of right ear Low back pain Lumbar foraminal stenosis 08/13/2016 Lumbar herniated disc L1/T2 Left Lumbar neuritis L3-L4, L4-L5, L5/S1 Lumbar spondylosis Lumbar stenosis Moderate major depression, single episode ([facility]) Neoplasm of uncertain behavior of skin PONV (postoperative nausea and vomiting) projectile vomitting waking up after surgery Primary localized osteoarthritis of left hip Rheumatoid arthritis involving multiple sites ([facility]) Sacroiliac pain Spinal stenosis, lumbar [...] PA-C - 05/27/2017 7:[address] [facility] NEUROSURGERY PROGRESS NOTE PATIENT NAME: Dorothea [...] Intake/Output Summary (Last 24 hours) at 05/27/17 0745 Last data filed at 05/27/17 0607 Gross [...] has no apparent deficits with short or longterm memory. MOTOR EXAM: Motor strength is stable 4+/5 Rt DF SENSORY EXAM: Sensory exam is stable 24 HOUR LABS: All Component Based Labs None ASSESSMENT: NEUROSURGICAL DIAGNOSES: S/p lumbar fusion HOSPITAL/GENERAL DIAGNOSES: Past Medical History: Diagnosis Date Acute pansinusitis Atrial fibrillation ([facility]) 08-18-2016 Atypical chest pain Bilateral leg pain Contusion of knee with skin surface intact Right Anterior COPD (chronic obstructive pulmonary disease) ([facility]) Hyperlipoproteinemia type Li-a Impacted cerumen of right ear Low back pain Lumbar foraminal stenosis 08/13/2016 Lumbar herniated disc L1/T2 Left Lumbar neuritis L3-L4, L4-L5, L5/S1 Lumbar spondylosis Lumbar stenosis Moderate major depression, single episode ([facility]) Neoplasm of uncertain behavior of skin PONV (postoperative nausea and vomiting) projectile vomitting waking up after surgery Primary localized osteoarthritis of left hip Rheumatoid arthritis involving multiple sites ([facility]) Sacroiliac pain Spinal stenosis, lumbar [...] get a stat read from the radiologist, [facility] umshauna in this encounter Plan of Treatment [...] | | Jackso | | | n [place] | | | | | | FrameE [...] | | Jackso | | | n [place] | +---+--------+ documented in this encounter Results [...] + | [facility] | [address] | [place] | [phone] | | [facility] | | [address] | | | - LABORATORY | | [...] | mL/min/1.73m2 | [facility] | | | [place] | RATE,ESTIMATED | | MEDICAL | | | | mL/min/1.14q8Aovw than | | CENTER - | | [...] [address] | [place] | [phone] | | [facility] | | [address] | | | - LABORATORY | | [...] [address] | [place] | [phone] | | [facility] | | [address] | | | - LABORATORY | | [...] 7 | 7 - 18 mg/dL | [facility] | | | | | | ST. [...] mL/min/1.73m2 | [facility] | | | [place] | RATE,ESTIMATED | | MEDICAL | | | | mL/min/1.43s2Hgve than | | CENTER - | | [...] [address] | [place] | [phone] | | [facility] | | [address] | | | - LABORATORY | | [...] - 1.030 | [facility] | | | [place], | | | [facility] | | [...] ST. | [address] | [place] | [phone] | | [facility] | | [address] | | | - LABORATORY | | [...] + | [facility] | [address] | [place] | [phone] | | [facility] | | [address] | | | - LABORATORY | | [...] mL/min/1.73m2 | [facility] | | | [place] | RATE,ESTIMATED | | MEDICAL | | | | mL/min/1.28d6Csze than | | CENTER - | | [...] [address] | [place] | [phone] | | [facility] | | [address] | | | - LABORATORY | | [...] | mL/min/1.73m2 | [facility] | | | [place] | RATE,ESTIMATED | | MEDICAL | | | | mL/min/1.22h9Urpu than | | CENTER - | | [...] + | [facility] | [address] | [place], [place] | [phone] | | [facility] | | [address] | | | - LABORATORY | | [...] + | [facility] | [address] | [place] | [phone] | | [facility] | | [address] | | | - LABORATORY | | [...] | | | FILTRATION | mL/min/1.73m2 | [facility] | | | [place] | RATE,ESTIMATED | | MEDICAL | | | | mL/min/1.27n1Mole than | | CENTER - | | [...] | | | | | mg/dL | [facility] | | | | | | MEDICAL | | | | | | CENTER - | | | | | | LABORATORY | | + + + + + + | BUN/Creatin | 25.0Comment: This is an | | [facility] | | | ine Ratio | appended report. These | | [facility] | | | | results have [...] [address] | [place] | [phone] | | [facility] | | [address] | | | - LABORATORY | | [...] [address] | [place] | [phone] | | [facility] | | [address] | | | - LABORATORY | | [...] [address] | [place] | [phone] | | [facility] | | [address] | | | - LABORATORY | | [...] 455 DEBRA | | | Patient Number [id number] Date of Study | | | 06/01/2017 Visit Number [id number] | | | Referring Physician MARCO Means Number Date of | | | 1945 Seismograph Chief TOLU | | | SHERWIN | | | KARENA Age 72 year(s) | | | Interpreting BECKY SMITH | | | Mirror Silverer ISACC SEARS, | | | | | | Gender Female Nurse | | | Stress Risk Control Product Liability Director | | | Procedure Type of Study [...] Volume: 48.46 ml | | | EF Fqfkraoxo43% Left | | | Ventricle Diastolic Dimension: [...] Volume: 48.46 ml | | | EF Lwdqgzfbn21% | | | | | | Left [...] Number 455 | | DEBRA Patient Number [id number] Date of Study 06/01/2017 Visit Number | | [id number] Referring Physician MARCO Means | | Number Date of 1945 Seismograph Chief TOLU COURTNEY | | [facility] Age 72 year(s) | | Interpreting BECKY SMITH Mirror Silverer | | ISACC SEARS MD Gender | [...] [place] Volume: 48.46 ml | | EF Ghzxkqmfh05% Left Ventricle Diastolic Dimension: | | 4.83 [...] [place] Volume: 48.46 ml | | EF Kkvbdplhi83% | | | | Left Ventricle | [...] [address] | [place] | [phone] | | [facility] | | [address] | | | - LABORATORY | | [...] 0.56 (L) | 0.60 - 1.30 | [facility] | | | | | mg/dL [...] mL/min/1.73m2 | [facility] | | | [place] | RATE,ESTIMATED | | MEDICAL | | | | mL/min/1.53i7Vevl than | | CENTER - | | [...] + | [facility] | [address] | [place] | [phone] | | [facility] | | [address] | | | - LABORATORY | | [...] [address] | [place] | [phone] | | [facility] | | [address] | | | - LABORATORY | | [...] [address] | [place] | [phone] | | [facility] | | [address] | | | - LABORATORY | | [...] + | [facility] | [address] | [place] | [phone] | | [facility] | | [address] | | | - LABORATORY | | [...] | | | | TRACIE RAMOS MD ([id number]) | | | | | | on [...] | | | | TRACIE RAMOS MD ([id number]) | | | | | | on [...] arrhythmiaShort | | | | | | AR intervalNonspecific | | | | | | [...] MD | | | | | | ([id number]) on 05/31/2017 | | | | | [...] | | | | TRACIE RAMOS MD ([id number]) | | | | | | on [...] [address] | [place] | [phone] | | [facility] | | [address] | | | - LABORATORY | | [...] | | | FILTRATION | mL/min/1.73m2 | [facility] | | | [place] | RATE,ESTIMATED | | MEDICAL | | | | mL/min/1.98w0Byns than | | CENTER - | | [...] | | | | | mg/dL | [facility] | | | | | | [...] + | [facility] | [address] | [place] | [phone] | | [facility] | | [address] | | | - LABORATORY | | [...] [address] | [place] | [phone] | | [facility] | | [address] | | | - LABORATORY | | [...] | | | | | | TRACIE ([id number]) on | | | | | | [...] [address] | [place] | [phone] | | [facility] | | [address] | | | - LABORATORY | | [...] + | [facility] | [address] | [place] | [phone] | | [facility] | | [address] | | | - LABORATORY | | [...] mL/min/1.73m2 | [facility] | | | [place] | RATE,ESTIMATED | | MEDICAL | | | | mL/min/1.52q6Xgvj than | | CENTER - | | [...] ST. | [address] | [place] | [phone] | | [facility] | | [address] | | | - LABORATORY | | [...] MD | | | | | | ([id number]) on 05/28/2017 | | | | | [...] + | [facility] | [address] | [place] | [phone] | | [facility] | | [address] | | | - LABORATORY | | [...] [facility] | [address] | [place] | [phone] | | [facility] | | [address] | | | - LABORATORY | | [...] [address] | [place] | [phone] | | [facility] | | [address] | | | - LABORATORY | | [...] | | | | TRACIE RAMOS MD ([id number]) | | | | | | on [...] - 1.030 | [facility] | | | [place], | | | [facility] | | [...] | | Urine | | | [facility] | | | | | | MEDICAL [...] | | | Urine | | | [facility] | | | | | | [...] ST. | [address] | [place], [place] | [phone] | | [facility] | | [address] | | | - LABORATORY | | [...] [address] | [place] | [phone] | | [facility] | | [address] | | | - LABORATORY | | [...] + | [facility] | [address] | [place] | [phone] | | [facility] | | [address] | | | - LABORATORY | | [...] mL/min/1.73m2 | [facility] | | | [place] | RATE,ESTIMATED | | MEDICAL | | | | mL/min/1.77g0Lufo than | | CENTER - | | [...] [address] | [place] | [phone] | | [facility] | | [address] | | | - LABORATORY | | [...] ST. | [address] | [place] | [phone] | | [facility] | | [address] | | | - LABORATORY | | [...] | | | | TRACIE RAMOS MD ([id number]) | | | | | | on [...] changes. A preliminary report was sent by [facility] with no | | | significant discrepancy. [...] | A preliminary report was sent by [facility] with no significant | | discrepancy. | [...] | | | | | | | [facility] 05/31/17 at 1800, For 1 dose, | [...] | | | | | | | [facility] 05/31/17 at 2315, For 1 dose, | [...] | | | | | | | [facility] 05/28/17 at 0000, Initial | | | [...] 5 mg/mL | | | injection Starting [facility] 05/28/17 | | | at 0953, For 1 dose, MARITA, | | | GENO: shanna corona, | | + +---+ | | | + +---+ + +-------+ +-------+---+---+ | dilTIAZem (CARDIZEM) injection | Given | 05/28/20 | 15 mg | | | | 15 mg 15 mg, Intravenous, ONCE, | | 17 9:50 | | | | | [facility] 05/28/17 at 1015, For 1 dose, | [...] 17 10:07 | | | | | [facility] 05/28/17 at 1030, For 1 dose, | [...] | | | | | Agitation, Starting [facility] 05/28/17 | | | | | | [...] | | | | | Agitation, Starting [facility] 05/28/17 | | | | | | [...] | | | | | | | [facility] 05/28/17 at 1900, Mix with 2 | [...] | | | | PRN, Pain, Starting [facility] 05/28/17 | | | | | | [...] | | | | | modification) on [facility] 05/28/17 at | | | | | [...] | | | | | | | [facility] 05/26/17 at 1345, For 3 doses, | [...] 5:29 | | | | | ONCE, [facility] 05/28/17 at 0530, For 1 | | [...] AM PDT | | | | | [facility] 05/29/17 at 1215 | | | | [...]
--- OUTSIDE RECORDS SUMMARY | ~2020-04-03 | XMS | Encounter Summary ---
Demographics + + + | Address | [address] | | | [place] [address] | + + + | Home Phone | | + + + | Preferred Language | Unknown | + + + | Marital Status | | + + + | Catholic Affiliation | 1041 | + + + | Race | Unknown | + + + | Ethnic Group | Unknown | + + + Author + + + | Author | [facility] | | | and [place] | + + + | Organization | [facility] | | | and [place] | + + + | Address | Unknown | + + + | Phone | Unavailable | + + + Support + + + + + | Name | Relationship | Address | Phone | + + + + + | Juanita Espinal | ECON | [address] | | | | | [place] | | | | | [address] | | + + + + + Care Team Providers + +------+ + | Care Hazardous Waste Material Technician Name | Role | Phone | [...] | 01/31/ | Refill | [facility] | Isacc Sears, | Medication Refill | | 2018 | | CARDIOLOGY [address] | [address] | | | | | [place], | [place], | | | | | [place] [address] | [place] [address] | | | | | [phone] | [phone] | | | | | | | [...]
--- OUTSIDE RECORDS SUMMARY | ~2020-04-03 | XMS | Encounter Summary ---
Demographics + + + | Address | [address] | | | [place] [address] | + + + | Home Phone | | + + + | Preferred Language | Unknown | + + + | Marital Status | | + + + | Yazidism Affiliation | 1041 | + + + | Race | Unknown | + + + | Ethnic Group | Unknown | + + + Author + + + | Author | [facility] | | | and [place] | + + + | Organization | [facility] | | | and [place] | + + + | Address | Unknown | + + + | Phone | Unavailable | + + + Support + + + + + | Name | Relationship | Address | Phone | + + + + + | Juanita Espinal | ECON | [address] | | | | | [place] | | | | | [address] | | + + + + + Care Team Providers + +------+ + | Care Pipeline Operator Name | Role | Phone | [...] [address] | | | | | [place], [place] | [place] [address] | | | | | [address] | [phone] | | | | | [phone] | | | +--------+--------+ + + + [...]
--- OUTSIDE RECORDS SUMMARY | ~2020-04-03 | XMS | Encounter Summary ---
Demographics + + + | Address | [address] | | | [place] [address] | + + + | Home Phone | | + + + | Preferred Language | Unknown | + + + | Marital Status | | + + + | Scientology Affiliation | 1041 | + + + | Race | Unknown | + + + | Ethnic Group | Unknown | + + + Author + + + | Author | [facility] | | | and [place] | + + + | Organization | [facility] | | | and [place] | + + + | Address | Unknown | + + + | Phone | Unavailable | + + + Support + + + + + | Name | Relationship | Address | Phone | + + + + + | Juanita Espinal | ECON | [address] | | | | | [place] | | | | | [address] | | + + + + + Care Team Providers + +------+ + | Care Cathead Worker Name | Role | Phone | + [...] | | Spondylolist | [address] | [facility] [place] | | | | | hesis of | [place], [place] | [address] Phone: | | | | | lumbar | [address] | [phone] | | | | | region | Phone: | Fax: | | | | | Lumbar facet | [phone] | [phone] | | | | | arthropathy | Fax: | | | | | | Foraminal | [phone] | | | | | | stenosis [...] | | weakness | TAM[place]KO Tyler | [facility] | | | | | Hyperreflexi | [address] | [address] | | | | | a | [address] | AVE | | | | | Procedures | [place] | [place] | | | | | MRI Cervical | [address] | [address] | | | | | Spine wo | Phone: | Phone: | | | | | Contrast | [phone] | [phone] | | | | | | Fax: | Fax: | | | | | | [phone] | [phone] | +--------+--------+ + + + + Reason [...] | | Procedures | [address] | [place] | | | | | [place] OFFICE | Yvonne Avirvin | [address] | | | | | CONSULTATION | Simon | Phone: | | | | | NEW/ESTAB | [place] | [phone] | | | | | PATIENT 60 | [address] | Fax: | | | | | MIN | Phone: | [phone] | | | | | | [phone] | | | | | | | Fax: | | | | | | | [phone] | | +--------+--------+ + + + + Encounter Details +--------+---------+ + + + | Date | Type | Department | Care Team | Description | +--------+---------+ + + + | 07/23/ | Office | [facility] | [place] | Lumbar radiculopathy | | 2016 | Visit | NEUROSURGERY [address] | [address] | (Primary Dx); | | | | [address] | [address] | Spondylolisthesis of | | | | [place], [place] | [place] [address] | lumbar region; | | | | [address] | [phone] | Lumbar facet | | | | [phone] | | arthropathy; | | | | [...] in this encounter Progress Notes Meggan Willis, Service Order Expediter - 07/23/2016 8:08 AM PDT [place] France PA-C [address] [place] [address], [address] [place], [place] [address] FAX: NEUROSURGERY HISTORY AND PHYSICAL EXAMINATION CHIEF [...] right ear COPD (chronic obstructive pulmonary disease) ([facility]) Contusion of knee with skin surface intact Right Anterior Lumbar herniated disc L1/T2 Left Hyperlipoproteinemia type Li-a Spondylolisthesis of lumbar region L3/L4, 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 Moderate major depression, single episode ([facility]) Primary localized osteoarthritis of left hip Rheumatoid arthritis involving multiple sites ([facility]) Sacroiliac pain Thoracic neuritis T1-T2 Lumbar neuritis L3-L4, L4-L5, L5/S1 Lumbar spondylosis Neoplasm of uncertain behavior of skin Spinal stenosis, lumbar Lumbar canal with neurogenic claudication PAST SURGICAL HISTORY: Past Surgical History Procedure Laterality Date Hysterectomy 04/1971 [facility] Cataract surgery 2008 Dr. Andrew Maldonado Appendectomy [...] has no apparent deficits with short or adjunct faculty for medical terminology memory. CRANIAL NERVES: Fundoscopic Exam: The optic [...] Intrinsics 5 5 Ulnar Intrinsics 5 5 Electronics Mechanic Strength 4+ 4+ Hip Flexion 5 5 [...] odontoid views of the cervical spine | [facility] | | COMPARISON: Cervical spine MRI 08/07/2016 [...] [address] | [place] | [phone] | | [facility] | | [address] | | | - IMAGING | | [...]
--- OUTSIDE RECORDS SUMMARY | ~2020-04-03 | XMS | Encounter Summary ---
Demographics + + + | Address | [address] | | | [place] [address] | + + + | Home Phone [...] + + | Author | [facility] | | | and [place] | + + + | Organization | [facility] | | | and [place] | + + + | Address | Unknown | + + + | Phone | Unavailable | + + + Support + + + + + | Name | Relationship | Address | Phone | + + + + + | Juanita Espinal | ECON | [address] | | | | | [place] | | | | | [address] | | + + + + + Care Team Providers + +------+ + | Care Warehouse Selector Name | Role | Phone | + [...] | | [address] | [place] [address] | | | | | [place] | [phone] | | | | | [address] | | | | | | [phone] | | | +--------+ + + + [...]
--- OUTSIDE RECORDS SUMMARY | ~2020-04-03 | XMS | Encounter Summary ---
Demographics + + + | Address | [address] | | | [place] [address] | + + + | Home Phone | | + + + | Preferred Language | Unknown | + + + | Marital Status | | + + + | Muslim Affiliation | 1041 | + + + | Race | Unknown | + + + | Ethnic Group | Unknown | + + + Author + + + | Author | [facility] | | | and [place] | + + + | Organization | [facility] | | | and [place] | + + + | Address | Unknown | + + + | Phone | Unavailable | + + + Support + + + + + | Name | Relationship | Address | Phone | + + + + + | Juanita Espinal | ECON | [address] | | | | | [place] | | | | | [address] | | + + + + + Care Team Providers + +------+ + | Care Paralegal Secretary Name | Role | Phone | + +------+ + | Hemanth Lima PCP | | | MD | | | + +------+ + Reason for Visit + + + | Reason | Comments | + + + | Results, Imaging | | + + + Encounter Details +--------+ + + + + | Date | Type | Department | Care Team | Description | +--------+ + + + + | 08/12/ | Telephone | [facility] | Edin Lynn MD | Results, Imaging | | 2016 | | NEUROSURGERY [address] | [address] | | | | | [address] | [place] [address] | | | | | [place] | [phone] | | | | | [address] | | | | | | [phone] | | | +--------+ + + + [...]
--- OUTSIDE RECORDS SUMMARY | ~2020-04-03 | XMS | Encounter Summary ---
Demographics + + + | Address | [address] | | | [place] [address] | + + + | Home Phone [...] + + | Organization | [facility] | | | and [place] | + + + | Address | Unknown | + + + | Phone | Unavailable | + + + Support + + + + + | Name | Relationship | Address | Phone | + + + + + | Juanita Espinal | ECON | [address] | | | | | [place], [place] | | | | | [address] | | + + + + + Care Team Providers + +------+ + | Care Vacuum Caster Name | Role | Phone | + [...] | | [address] | Braided Band Assembler | | | | | [place], [place] | | | | | | [address] | | | | | | [phone] | | | +--------+ + + + [...]
--- OUTSIDE RECORDS SUMMARY | ~2020-04-03 | XMS | Encounter Summary ---
Demographics + + + | Address | [address] | | | [place] [address] | + + + | Home Phone | | + + + | Preferred Language | Unknown | + + + | Marital Status | | + + + | Quaker Affiliation | 1041 | + + + | Race | Unknown | + + + | Ethnic Group | Unknown | + + + Author + + + | Author | [facility] | | | and [place] | + + + | Organization | [facility] | | | and [place] | + + + | Address | Unknown | + + + | Phone | Unavailable | + + + Support + + + + + | Name | Relationship | Address | Phone | + + + + + | Juanita Espinal | ECON | [address] | | | | | [place] | | | | | [address] | | + + + + + Care Team Providers + +------+ + | Care Employee Benefits Manager Name | Role | Phone | [...] + + | 08/25/ | Office | [facility] | Edin Lynn MD | Status post lumbar | | 2017 | Visit | NEUROSURGERY [address] | [address] | spinal fusion | | | | [address] | [place] [address] | (Primary Dx); | | | | [place] | [phone] | Age-related | | | | [address] | | osteoporosis with | | | | [phone] | | current pathological | | | [...] t he original. Edin Lynn MD [address] [facility], [address] [place] [address] NEUROSURGERY FOLLOW-UP CHIEF COMPLAINT: Chief Complaint Patient [...] Diagnosis Date Acute pansinusitis Atrial fibrillation ([facility]) 08-18-2016 Atypical chest pain Bilateral leg pain Contusion of knee with skin surface intact Right Anterior COPD (chronic obstructive pulmonary disease) ([facility]) [place] (hard of hearing) Hyperlipoproteinemia type Li-a Impacted cerumen of right ear Low back pain Lumbar foraminal stenosis 08/13/2016 Lumbar herniated disc L1/T2 Left Lumbar neuritis L3-L4, L4-L5, L5/S1 Lumbar spondylosis Lumbar stenosis Moderate major depression, single episode ([facility]) Neoplasm of uncertain behavior of skin PONV (postoperative nausea and vomiting) projectile vomitting waking up after surgery Primary localized osteoarthritis of left hip Rheumatoid arthritis involving multiple sites ([facility]) Sacroiliac pain Spinal stenosis, lumbar Lumbar canal [...] hope that they can avoid additional surgery. quality assurance qa lab technician pain medication should be continued and tapered [...]
--- OUTSIDE RECORDS SUMMARY | ~2020-04-03 | XMS | Encounter Summary ---
Demographics + + + | Address | [address] | | | [place] [address] | + + + | Home Phone [...] + | Organization | [facility] | | | and [place] | + + + | Address | Unknown | + + + | Phone | Unavailable | + + + Support + + + + + | Name | Relationship | Address | Phone | + + + + + | Juanita Espinal | ECON | [address] | | | | | [place] | | | | | [address] | | + + + + + Care Team Providers + +------+ + | Care Laundry Worker Name | Role | Phone | [...] + + | 11/27/ | Office | [facility] | Edin Lynn MD | S/P lumbar fusion | | 2018 | Visit | NEUR[address]URGERY [address] | [address] | (Primary Dx); | | | | [address] | [place] [address] | Spondylolisthesis of | | | | [place] | [phone] | lumbar region; | | | | [address] | | Lumbar | | | | [phone] | Jeffry France | radiculopathy; | | | | | [address] | Lumbar foraminal | | | | | [address] | stenosis; Lumbar | | | | | [place] [address] | facet arthropathy | | | | | [phone] | | | | | | | [...] Jeffry France PA-C and Edin Lynn MD [address] [place] [address], [address] [place] [id number] NEUROSURGERY FOLLOW-UP CHIEF COMPLAINT: Chief Complaint Patient [...] History: Diagnosis Date Acute pansinusitis Atrial fibrillation ([facility]) 08-18-2016 Atypical chest pain Bilateral leg pain Contusion of knee with skin surface intact Right Anterior COPD (chronic obstructive pulmonary disease) ([facility]) Heart failure ([facility]) [place] (hard of hearing) Hyperlipoproteinemia type Li-a Impacted cerumen of right ear Low back pain Lumbar foraminal stenosis 08/13/2016 Lumbar herniated disc L1/T2 Left Lumbar neuritis L3-L4, L4-L5, L5/S1 Lumbar spondylosis Lumbar stenosis Moderate major depression, single episode ([facility]) Neoplasm of uncertain behavior of skin PONV [...] S he is still working with PT. half-way pain medication does not appear to be [...]
--- OUTSIDE RECORDS SUMMARY | ~2020-04-03 | XMS | Encounter Summary ---
Demographics + + + | Address | [address] | | | [place] [address] | + + + | Home Phone [...] | Organization | [facility] | | | and [place] | + + + | Address | Unknown | + + + | Phone | Unavailable | + + + Support + + + + + | Name | Relationship | Address | Phone | + + + + + | Juanita Espinal | ECON | [address] | | | | | [place] | | | | | [address] | | + + + + + Care Team Providers + +------+ + | Care Parts Analyst Name | Role | Phone | [...] [address] | | | | | [place], [place] | [place] | | | | | [address] | [address] | | | | | [phone] | | | +--------+--------+ + + + [...]
--- OUTSIDE RECORDS SUMMARY | ~2020-04-03 | XMS | Encounter Summary ---
Demographics + + + | Address | [address] | | | [place] [address] | + + + | Home Phone | | + + + | Preferred Language | Unknown | + + + | Marital Status | | + + + | Evangelical Affiliation | 1041 | + + + | Race | Unknown | + + + | Ethnic Group | Unknown | + + + Author + + + | Author | [facility] | | | and [place] | + + + | Organization | [facility] | | | and [place] | + + + | Address | Unknown | + + + | Phone | Unavailable | + + + Support + + + + + | Name | Relationship | Address | Phone | + + + + + | Juanita Espinal | ECON | [address] | | | | | [place], [place] | | | | | [address] | | + + + + + Care Team Providers + +------+ + | Care Senior Technical Trainer Name | Role | Phone | + [...] | | | [address] | [place] [address] | | | | | [place] [address] | | | | | | [phone] | | | +--------+ + + + [...]
--- OUTSIDE RECORDS SUMMARY | ~2020-04-03 | XMS | Encounter Summary ---
Demographics + + + | Address | [address] | | | [place] [address] | + + + | Home Phone | | + + + | Preferred Language | Unknown | + + + | Marital Status | | + + + | Confucianist Affiliation | 1041 | + + + | Race | Unknown | + + + | Ethnic Group | Unknown | + + + Author + + + | Author | [facility] | | | and [place] | + + + | Organization | [facility] | | | and [place] | + + + | Address | Unknown | + + + | Phone | Unavailable | + + + Support + + + + + | Name | Relationship | Address | Phone | + + + + + | Juanita Espinal | ECON | [address] | | | | | [place] | | | | | [address] | | + + + + + Care Team Providers + +------+ + | Care Architectural Design Professor Name | Role | Phone | [...] + + | 08/22/ | Telephone | [facility] | Piotr Villaseñor | Other (post | | 2016 | | PHYSIATRY [address] | [address] | injection symptoms) | | | | [address] | [place], [place] | | | | | [place], [place] | [address] | | | | | [address] | | | | | | [phone] | | | +--------+ + + + [...]
--- OUTSIDE RECORDS SUMMARY | ~2020-04-03 | XMS | Encounter Summary ---
Demographics + + + | Address | [address] | | | [place] [address] | + + + | Home Phone | | + + + | Preferred Language | Unknown | + + + | Marital Status | | + + + | Buddhism Affiliation | 1041 | + + + | Race | Unknown | + + + | Ethnic Group | Unknown | + + + Author + + + | Author | [facility] | | | and [place] | + + + | Organization | [facility] | | | and [place] | + + + | Address | Unknown | + + + | Phone | Unavailable | + + + Support + + + + + | Name | Relationship | Address | Phone | + + + + + | Juanita Espinal | ECON | [address] | | | | | [place] | | | | | [address] | | + + + + + Care Team Providers + +------+ + | Care Plant Guard Name | Role | Phone | + [...] | | [address] | [place] [address] | Spondylolisthesis of | | | | [place], [place] | [phone] | lumbar region; | | | | [address] | | Lumbar facet | | | | [phone] | | arthropathy; | | | | [...] thoracic aorta and likely the subclavian | [facility] | | arteries as well. The [...] + | [address] | [address] | [place] | [phone] | | [facility] | | [address] | | | - IMAGING | | [...] + | [facility] [facility] | [address] | [place], [place] | [phone] | | [facility] | | [address] | | | - LABORATORY | | [...] mL/min/1.73m2 | [facility] | | | [facility] | RATE,ESTIMATED | | MEDICAL | | | | mL/min/1.72y6Ukeh than | | CENTER - | | [...] [address] | [place] | [phone] | | [facility] | | [address] | | | - LABORATORY | | [...] MD | | | | | | ([id number]) on 05/04/2017 | | | | | [...]
--- OUTSIDE RECORDS SUMMARY | ~2020-04-03 | XMS | Encounter Summary ---
Demographics + + + | Address | [address] | | | [place] [address] | + + + | Home Phone | | + + + | Preferred Language | Unknown | + + + | Marital Status | | + + + | Mormon Affiliation | 1041 | + + + | Race | Unknown | + + + | Ethnic Group | Unknown | + + + Author + + + | Author | [facility] | | | and [place] | + + + | Organization | [facility] | | | and [place] | + + + | Address | Unknown | + + + | Phone | Unavailable | + + + Support + + + + + | Name | Relationship | Address | Phone | + + + + + | Juanita Espinal | ECON | [address] | | | | | [place] | | | | | [address] | | + + + + + Care Team Providers + +------+ + | Care Hydramatic Mechanic Name | Role | Phone | [...] | | | 2017 | | [facility] | MD [address] [facility] | | | | | [address], | [place] [address] | | | | | [address] [place] | [place] | | | | | [place] [address] | [address] | | | | | [phone] | | | +--------+ + + + [...]
--- OUTSIDE RECORDS SUMMARY | ~2020-04-03 | XMS | Encounter Summary ---
Demographics + + + | Address | [address] | | | [place] [address] | + + + | Home Phone [...] | Organization | [facility] | | | and [place] | + + + | Address | Unknown | + + + | Phone | Unavailable | + + + Support + + + + + | Name | Relationship | Address | Phone | + + + + + | Juanita Espinal | ECON | [address] | | | | | [place] | | | | | [address] | | + + + + + Care Team Providers + +------+ + | Care Intensive Care Specialist Name | Role | Phone | [...] + + | 07/23/ | Telephone | [facility] | Cam Francelas | Records Request | | 2016 | | NEUROSURGERY [address] | [address] | | | | | [facility] [address] | [address] | | | | | [place], [place] | [place] [address] | | | | | [address] | [phone] | | | | | [phone] | | | +--------+ + + + [...] OSTEOPOROSIS. COMPARISON: None. PROTOCOL: Bone | [facility] | | mineral density was [...] ST. | [address] | [place], [place] | [phone] | | [facility] | | [address] | | | - IMAGING | | | | + + + + + documented in this encounter Visit Diagnoses + + | Diagnosis | + + | Osteoporosis - Primary Osteoporosis, unspecified | + + documented in this encounter"
--- OUTSIDE RECORDS SUMMARY | ~2020-04-03 | XMS | Encounter Summary ---
Demographics + + + | Address | [address] | | | [place] [address] | + + + | Home Phone [...] | [facility] | | | and [place] | + + + | Address | Unknown | + + + | Phone | Unavailable | + + + Support + + + + + | Name | Relationship | Address | Phone | + + + + + | Juanita Espinal | ECON | [address] | | | | | [place] | | | | | [address] | | + + + + + Care Team Providers + +------+ + | Care Churn Driller Helper Name | Role | Phone | [...] | | n | y | [address] | [facility] | | | | | Spondylolist | [address] | [place], [place] | | | | | hesis of | [place], [place] | [address] Phone: | | | | | lumbar | [address] | [phone] | | | | | region | Phone: | Fax: | | | | | Lumbar facet | [phone] | [phone] | | | | | arthropathy | Fax: | | | | | | Foraminal | [phone] | | | | | | stenosis [...] + + | 08/13/ | Office | [facility] | Carolyn, | Lumbar radiculopathy | | 2016 | Visit | PHYSIATRY [address] | [address] | (Primary Dx); | | | | [address] | [address] | Spondylolisthesis of | | | | [place], [place] | [place] [address] | lumbar region; DDD | | | | [address] | [phone] | (degenerative disc | | | | [phone] | | disease), lumbar; | | | [...] of blood sugars if you are diabetic. longterm risk can lead to osteoporosis which is [...] of the procedure you must provide a water truck driver to take you home. For all [...] Rheumatoid arthritis involving multiple sites ([facility]) Sacroiliac pain Thoracic neuritis T1-T2 Lumbar neuritis L3-L4, L4-L5, L5/S1 Lumbar spondylosis Neoplasm of uncertain behavior of skin Spinal stenosis, lumbar Lumbar canal with neurogenic claudication Lumbar foraminal stenosis 08/13/2016 PAST SURGICAL HISTORY: Past Surgical History Procedure Laterality Date Hyste[facility] 04[facility] [address] [facility] Cataract surgery 2008 Dr. Andrew Maldonado [...] has no apparent deficits with short or lumber salvager memory. 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 Unfortunately she cont inues to have significant [...] Lumbosacral radiculopathy ICD-10 Code M54.16 | [facility] | | Dorothea Calvo presents to the fluoroscopy suite for [facility] | | fluoroscopically-guided bilateral S1 transforaminal epidural [...] | + + + + + | [address] | [address] | [place] | [phone] | | [facility] | | [address] | | | - IMAGING | | [...]
--- OUTSIDE RECORDS SUMMARY | ~2020-04-03 | XMS | Encounter Summary ---
Demographics + + + | Address | [address] | | | [place] [address] | + + + | Home Phone | | + + + | Preferred Language | Unknown | + + + | Marital Status | | + + + | Confucianist Affiliation | 1041 | + + + | Race | Unknown | + + + | Ethnic Group | Unknown | + + + Author + + + | Author | [facility] | | | and [place] | + + + | Organization | [facility] | | | and [place] | + + + | Address | Unknown | + + + | Phone | Unavailable | + + + Support + + + + + | Name | Relationship | Address | Phone | + + + + + | Juanita Espinal | ECON | [address] | | | | | [place] | | | | | [address] | | + + + + + Care Team Providers + +------+ + | Care Seating Captain Name | Role | Phone | + [...] | | [address] | [place] [address] | (Primary Dx) | | | | [place] | [phone] | | | | | [address] | | | | | | [phone] | | | +--------+ + + + [...]
--- OUTSIDE RECORDS SUMMARY | ~2020-04-03 | XMS | Encounter Summary ---
Demographics + + + | Address | [address] | | | [place] [address] | + + + | Home Phone [...] | Organization | [facility] | | | and [place] | + + + | Address | Unknown | + + + | Phone | Unavailable | + + + Support + + + + + | Name | Relationship | Address | Phone | + + + + + | Juanita Espinal | ECON | [address] | | | | | [place] | | | | | [address] | | + + + + + Care Team Providers + +------+ + | Care Linoleum Floor Installer Name | Role | Phone | [...] | | [address] | [place] [address] | | | | | [place] | [phone] | | | | | [address] | | | | | | [phone] | | | +--------+ + + + [...]
[~2020-04-03 09:20] MED LIST changes: +NORCO 5-325 TA1 EACH PO
[2020-04-03] MEDS ORDERED: TRAMADOL HCL50 MG PO (09:34)
== END 2020-04-03 10:35 | disposition home or self-care (01) ==
LOC: ED 09:20
DX: S93.401A Sprain of unspecified ligament of right ankle, initial encounter (principal); I48.91 Unspecified atrial fibrillation; F17.200 Nicotine dependence, unspecified, uncomplicated; Z91.048 Other nonmedicinal substance allergy status; Z88.5 Allergy status to narcotic agent; Z79.899 Other long term (current) drug therapy; X50.1XXA Overexertion from prolonged static or awkward postures, initial encounter
CPT/HCPCS: 73610; 99283-25

== ENCOUNTER 2021-06-02 15:00 | Observation (INO) | payer MEDICARE, OTHER ==
[~2021-06-02] VITALS: Ht 167.6 cm; Wt 52.6 kg
[~2021-06-02 15:00] MED LIST changes: +TRAMADOL HCL50 MG PO
--- NOTE | 2021-06-02 18:40 | NUR ---
76 year old FEMALE PATIENT ADMITTED TO CCU FROM ED VIA STRETCHER UNDER DR. JACOBO WITH DX OF AFIB RVR. PATIENT IS ALERT, ORIENTED AND COOPERATIVE. IS TAZLINA. PATIENT C/O SLIGHT PAIN IN RIGHT WRIST. IVF HUNG TO LEFT ARM SITE. PATIENT DAUGHTER IS IN ROOM. ADMISSION STARTED.
--- NOTE | 2021-06-02 19:19 | NUR ---
REPORT TO NEXT SHIFT. PATIENT IS RESTING IN BED. HR-64, BP-141/74. O2 ON RA-99.
--- NOTE | 2021-06-02 19:41 | NUR ---
PATIENT UP TO THE BSC. SLIGHTLY UNSTEADY ON HER FEET. MILD DIZZINESS. HR CONTINUES TO BE WELL CONTROLLED IN 70-80'S. PATIENT VOIDED 100 MLS CLEAR URINE. REQUESTED SOME FOOD WHICH TUBE REPAIRER WILL BRING. IV SITE WNL, FLUIDS PER ORDER.
--- NOTE | 2021-06-02 19:55 | NUR ---
DISCUSSED PATIENT'S HR 50-60'S WITH MD AND IRREGULAR SINUS RHYTHM. CONFIRMED TO GIVE CARDIZEM ORDERED. REVIEW LABS, PATIENT'S MAG 1.7, ORDERS RECEIVED FOR 2G MAG. VERIFIED WITH REPEAT BACK.
--- NOTE | 2021-06-02 20:59 | NUR ---
PATIENT INCONTINENT OF LOOSE STOOL. PATIENT REPORTS THIS IS SOMEWHAT NORMAL FOR HER. ASSISTED TO CLEAN UP AND NEW ATTENDS IN PLACE. PATIENT RETURNED TO BED. HAD A PM SNACK. NEW IV SITE ESTABLISHED DUE TO BLOOD AND PAIN AT CURRENT IV SITE. IV MAG STARTED AND CARDIZEM PROVIDED. PATIENT RESTING IN BED. CALL LIGHT IN REACH.
--- NOTE | 2021-06-02 21:51 | NUR ---
PATIENT UP TO THE [facility] TO VOID. TOLERATED WELL. HR 80'S WITH ACTIVITY. PATIENT TURNED OFF TV AND LIGHTS WERE DIMMED FOR SLEEP.
--- NOTE | 2021-06-02 23:00 | NUR ---
PATIENT APPEARS TO BE SLEEPING WELL. HEART RHYTHM HAD CHANGED FROM SINUS WITH FREQUENT PACs TO FLUTTER THEN BACK TO SINUS. ALL RATE CONTROLLED IN 60'S AND 70'S. BP WNL.
--- NOTE | 2021-06-03 00:30 | NUR ---
PATIENT CALLED FOR ASSISTNACE. UP TO THE [facility] TO VOID. PATIENT TOLERATED WELL. HR 80-90'S WITH ACTIVITY. MINIMAL DIZZINESS AT THIS TIME. STEADY ON HER FEET. PATIENT RETURNED TO BED AND DENIED OTHER NEEDS. [facility] IV FLUIDS PER ORDER, SITE WNL.
--- NOTE | 2021-06-03 01:58 | NUR ---
PATIENT UP TO THE BATHROOM TO VOID. REPORTS FEELING BETTER, ALMOST NO DIZZINESS AND DOESN'T FEEL WEAK. APPEARS STEADY. VOIDED AND RETURNED TO BED. PROVIDED WITH PO CARDIZEM PER ORDERS. HR 60-70'S.
--- NOTE | 2021-06-03 04:00 | NUR ---
PATIENT SLEEPING SOUNDLY. VS STABLE. CALL LIGHT IN REACH.
--- NOTE | 2021-06-03 05:45 | NUR ---
PATIENT UP TO BSC WITH SHELLY JEWELL ASSIST
--- NOTE | 2021-06-03 06:00 | NUR ---
TOURNIQUET FOUND BY LAB STAFF AND REMOVED. PATIENT REPORTED THIS TO SHELLY RN AFTER THEY HAD LEFT. TOURNIQUET HAD BEEN LEFT IN PLACE BY THIS RN AT 2100. AREA IS RED. BLANCHABLE. PATIENT DENIED PAIN. STATED "I DIDN'T EVEN KNOW IT WAS THERE." PATIENT'S FAMILY INFORMED. WILL CONTINUE TO MONITOR THE SIGHT.
--- NOTE | 2021-06-03 07:30 | EKG ---
[facility] [address] [facility] [place] [address] Signed Atrial fibrillation with rapid ventricular response Nonspecific ST and T wave abnormality Abnormal ECG When compared with ECG of 01-SEP-2017 12:05, Left bundle branch block is no longer present Confirmed by BLAISE JACOBO MD ([id number]) on 06/03/2021 7:30:26 AM Electronically Signed By: BLAISE JACOBO MD 06/03/21 0730 PATIENT NAME: KATTY QUINN DEBRA Electrocardiogram DATE OF : 45 PHYSICIAN: BLAISE JACOBO MD REPORT #: [id number] REPORT IS CONFIDENTIAL AND NOT TO BE RELEASED WITHOUT AUTHORIZATION
--- NOTE | 2021-06-03 09:00 | NUR ---
TOOK BREAKFAST WELL. DENIES PROBLEMS.
--- NOTE | 2021-06-03 09:30 | NUR ---
ORDERS RECIEVED FROM DR. JACOBO TO STOP IVF. THIS DONE. PATIENT IS VERY TALKATIVE, TALKING ABOUT THE OF HER AND MANY OTHER THINGS GOING ON IN HER LIFE. EMOTIONAL SUPPORT GIVEN. HAS BEEN TEARY AT TIMES THIS MORNING.
--- NOTE | 2021-06-03 10:00 | NUR ---
UP TO BR TO VOID, IS FAIRLY STABLE ON FEET. C/O MILD DIZZINESS. HR-80 WITH EXERTION.
--- NOTE | 2021-06-03 10:15 | NUR ---
AMBULATED IN HALLWAY ON MONITOR. HR 80. STATES SHE IS LESS DIZZY TODAY. IS FAIRLY STABLE ON FEET. AFTER RESTING FOR APPROX 5 MIN, PATIENT USED WALKER FOR AMBULATION, DID WELL USING WALKER.
--- NOTE | 2021-06-03 11:44 | NUR ---
SPOKE WITH PATIENT IN ROOM. PATIENT IS UP IN CHAIR. PATIENT IS RECENTLY AND LIVES ALONE ON [address]. DAUGHTER AND HER FAMILY LIVE CLOSE BY. PATIENTS PREFERENCE FOR DISCHARGE IS TO RETURN HOME. PATIENT DRIVES. USES NO DME BUT HAS WALKER, WHEELCHAIR, WALK-IN BATHTUB, BARS IN BATHROOM. HOUSE IS ONE LEVEL. PATIENT HAS LIFE ALERT AND THIS IS ACTIVE. PATIENT DENIES ANY FINANCIAL WORRIES FOR COST OF MEDS/FOOD/UTILITIES. PATIENT STATES HER 15 YEAR OLD GRANDDAUGHTER COMES REGULARLY TO VISIT WITH HER. SHE IS INTERESTED IN POSSIBLY HIRING SOME HELP FOR AROUND THE HOUSE. PATIENT IS VERY TEARFUL REGARDING RECENT LOSS OF HER . SHE STATES SHE THINKS THE STRESS OF TAKING CARE OF HIM FOR MANY YEARS AND NOW SHE HAS NOTHING TO DO IS A PROBLEM. SHE ALSO STATES SHE AND HE SPENT 38 YEARS TOGETHER WITH THE LAST DECADE HIM WORKING FROM HOME SO THEY WERE NEVER APART. WE DISCUSSED GRIEF. SUGGESTED SHE JOIN A GRIEF GROUP. SHE DOES NOT THINK SHE IS INTERESTED IN THIS. SHE FEELS SHE JUST NEEDS TO WORK THROUGH IT ON HER OWN. SHE HAS LOCAL PCP WHO SHE FEELS VERY CLOSE TOO AND HE IS RETIRING. SHE IS VERY SAD ABOUT THIS ALSO. DISCUSSED SHE WILL NEED TO FIND NEW PCP AFTER . SHE STATES SHE WILL PICK SOMEONE FROM THAT OFFICE. SHE IS HOPING TO GET IN TO SEE HIM SOON OR AT LEAST BEFORE HE RETIRES. DISCUSSED STAFF WILL BE MAKING FOLLOW UP APPT FOR HER BEFORE DISCHARGE. PATIENT SAT AND SPOKE ABOUT HER LIFE WITH HER FOR EXTENDED TIME. ENCOURAGED HER TO TALK ABOUT HER GRIEF WITH FAMILY AND FRIENDS. SHE STATES SHE WILL. DISCUSSED SHE MAY NEED TO SEE [employer] AND SHE IS OPEN TO THIS. PATIENT WANTS "FIX WHATEVER IS GOING ON" SO SHE CAN STAY IN HER HOME. SHE HAS NO QUESTIONS OR CONCERNS EXCEPT MAYBE SOME HELP WITH HOUSEWORK FOR AWHILE. BROCHURE GIVEN FOR HELPING HANDS. ALSO DISCUSSED THERE IS A STATE CAREGIVER LIST, BUT THIS IS PRIVATE HIRE. SHE STATES UNDERSTANDING. NO BARRIERS TO HOME AT THIS TIME.
--- NOTE | 2021-06-03 13:18 | NUR ---
RECEIVED CALL FROM PATIENTS DAUGHTER GALI. DISCUSSED MY CONVERSATION WITH PATIENT. ISAURA SAYS SHE HAS CALLED HELPING HANDS. SHE STATES THEY HAVE SOMEONE WHO IS GOING TO HELP HER, MORE OF A HELP DESK ASSOCIATE. SHE AGREES PATIENT IS GRIEVING AND LONELY. 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 SHE HAS BEEN IN TOUCH WITH DESIRE FOR HEALING. SHE CONFIRMS THAT PATIENT HAS LIFE ALERT AND DME TO USE. SHE SAYS IF PATIENT IS DISCHARGED LATER TODAY TO HAVE STAFF CALL HER AND SHE WILL COME UP. STAFF UPDATED.
[2021-06-03] MEDS ORDERED: SERTRALINE HCL25 MG PO (13:25)
[2021-06-03] MEDS ORDERED: DILTIAZEM 24HR120 MG PO (13:25)
--- NOTE | 2021-06-03 13:53 | NUR ---
MED REC COMPLETE
--- NOTE | 2021-06-03 14:20 | NUR ---
SPOKE WITH PATIENT IN ROOM AGAIN. 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 SHE SAID SHE WOULD BE VERY INTERESTED IN THIS. STATES "I JUST GET LONELY SOMETIMES". SHE STATES SHE WILL GIVE TO HER DAUGHTER WHEN SHE COMES.
--- NOTE | 2021-06-03 14:40 | NUR ---
DISCHARGE INSTRUCTIONS GIVEN TO PATIENT AND PT DAUGHTER.
--- NOTE | 2021-06-03 14:42 | NUR ---
BEST CABRERA IN WITH PT. WILL CHECK BACK
--- NOTE | 2021-06-03 14:45 | NUR ---
DISCHARGED TO HOME, ACCOMP BY DAUGHTER. DISCHARGED VIA W/C.
== END 2021-06-03 14:49 | disposition home or self-care (01) ==
LOC: ED 15:00 → CCU 15:02
PROVIDERS: ADMIT Internal Medicine; ATTEND Internal Medicine
DX: I48.0 Paroxysmal atrial fibrillation (principal); M06.9 Rheumatoid arthritis, unspecified; F41.9 Anxiety disorder, unspecified; R91.1 Solitary pulmonary nodule; F17.200 Nicotine dependence, unspecified, uncomplicated; F43.29 Adjustment disorder with other symptoms; Z98.1 Arthrodesis status; Z88.5 Allergy status to narcotic agent; Z88.8 Allergy status to other drugs, medicaments and biological substances; Z91.09 Other allergy status, other than to drugs and biological substances; Z20.822 Contact with and (suspected) exposure to COVID-19
CPT/HCPCS: 71045; 80048; 80053; 83735; 84484; 85025; 93005; 93010; 93306; 96365; 96375; 99285-25; C9803; G0378; J3475; J3480; J7030; U0003

== ENCOUNTER 2022-07-15 08:05 | Day surgery (SDC) | payer MEDICARE ==
[~2022-07-15] VITALS: Ht 167.6 cm; Wt 50.9 kg
--- NOTE | ~2022-07-15 | OR ---
[facility] [address] [place], [place] [address] Draft DATE OF OPERATION: 07/15/2022 SURGEON: Michael Crowell MD LOCATION: [facility] Outpatient Surgery. PREOPERATIVE DIAGNOSIS: Right pharyngeal tumor. POSTOPERATIVE DIAGNOSIS: Right pharyngeal tumor. PROCEDURE: Direct laryngoscopy, biopsy of right pharyngeal tumor. ANESTHESIA: General orotracheal, NETWORK OPERATIONS LEAD, Jaz. PREOPERATIVE HISTORY: Ms. Quinn is a 77-year-old lady with a right pharyngeal tumor and a right neck node. This is very suspicious for neoplasia. She is taken to the operating for the above-mentioned procedures. OPERATIVE PROCEDURE AND FINDINGS: After informed consent, the patient was taken to the operating room, placed in the supine position where general orotracheal anesthesia was induced. The patient and procedure were verified. The patient was repositioned. Digital palpation of the right tonsil showed moderately indurated tumor extending from the tonsil fossa down inferiorly several cm. This tumor was not fixed to deep tissues. Fairly nodular and extended up to the edge of the soft palate, did not involve the posterior pharyngeal wall. An anterior commissure laryngoscope was then used to visualize the hypopharynx, larynx. Other than the right tonsil, the disk this procedure was unremarkable. Vocal cords move well. Piriform is clear. The lesion did extend down the lateral pharyngeal wall 2 or 3 cm, but did not involve the larynx or the posterior pharyngeal wall. McIvor mouth gag then was placed into suspension. Multiple biopsies of the tumor were taken and sent to pathology in formalin. Minimal bleeding stopped afterwards. Pharynx was suctioned clear of blood and secretions. Mouth gag was removed. The patient was awakened, extubated, transported to recovery room in good condition. No complications. PATIENT NAME: KATTY QUINN OPERATIVE REPORT DATE OF : 45 REPORT #: [id number] PHYSICIAN: MICHAEL CROWELL MD PCP: FORREST GRIFFIN MD REPORT IS CONFIDENTIAL AND NOT TO BE RELEASED WITHOUT AUTHORIZATION [facility] [address] [place] [address] [place], [place] [address] Draft BLOOD LOSS: Minimal. SPECIMEN TO PATHOLOGY: Right tonsil tumor. DRAINS: No drains. Michael Crowell MD GC/MODL /[id number] Copies: ~ PATIENT NAME: KATTY QUINN OPERATIVE REPORT DATE OF : 45 REPORT #: [id number] PHYSICIAN: MICHAEL CROWELL MD PCP: FORREST GRIFFIN MD REPORT IS CONFIDENTIAL AND NOT TO BE RELEASED WITHOUT AUTHORIZATION
[~2022-07-15 08:05] MED LIST changes: +DILTIAZEM 24HR120 MG PO; +ELIQUIS2.5 MG PO; +PACERONE100 MG PO; +SERTRALINE HCL25 MG PO
--- NOTE | 2022-07-18 15:22 | PATH ---
[facility] [address] [place], [place] [address] Signed SPECIMEN(S): A RIGHT TONSIL TUMOR SPECIMEN SOURCE: A. 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 FINAL PATHOLOGIC DIAGNOSIS: Right tonsil tumor: - Invasive, moderately differentiated squamous cell carcinoma. - A P16 immunostain is positive for overexpression within the tumor. COMMENT: A P16 immunostain is performed with appropriate controls (block A1) is positive for overexpression within the area of concern. As part of [employer] Quality Improvement Program, this case was reviewed by another member of our pathology staff. A diagnostic notification to the office of Dr. Eubanks is initiated by Dr. Fowler and will be recorded separately. JVR:[id number] MICROSCOPIC EXAMINATION: Histologic sections of all submitted blocks are examined by light microscopy. These findings, together with the gross examination, support the pathologic diagnosis. 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 A discrete mass/lesions are grossly identified. The specimen is submitted in toto in one cassette (A1). AI (under the direct supervision of a pathologist) The Gross Description was prepared using a voice recognition system. The report was reviewed for accuracy; however, sound-alike word errors, addition and/or deletions may occur. If there is any question about this report, please contact Client Services. PERFORMING LABORATORY: PATIENT NAME: KATTY QUINN PATHOLOGY DATE OF : 45 REPORT #: [id number] PHYSICIAN: KEVEN CEDILLO PCP: FORREST GRIFFIN MD REPORT IS CONFIDENTIAL AND NOT TO BE RELEASED WITHOUT AUTHORIZATION [facility] [address] [facility] [place] [address] Signed The technical component was performed by [facility], [address] [place] [address] (CLIA# [id number]). Professional interpretation was performed by [facility] - [facility], [address] [place] [id number] (CLIA#: [id number]). Diagnostician: Prince Fowler MD Pathologist Electronically Signed 07/18/2022 Copies: ~ PATIENT NAME: KATTY QUINN PATHOLOGY DATE OF : 45 REPORT #: [id number] PHYSICIAN: KEVEN CEDILLO PCP: FORREST GRIFFIN MD REPORT IS CONFIDENTIAL AND NOT TO BE RELEASED WITHOUT AUTHORIZATION
== END 2022-07-15 11:05 | disposition home or self-care (01) ==
LOC: DS 08:05
PROVIDERS: ATTEND Otolaryngology
PROC: 0CBM8ZX Excision of Pharynx, Via Natural or Artificial Opening Endoscopic, Diagnostic (ICD-10-PCS; principal; 2022-07-15 09:00)
DX: C11.1 Malignant neoplasm of posterior wall of nasopharynx (principal); C77.0 Secondary and unspecified malignant neoplasm of lymph nodes of head, face and neck; I48.91 Unspecified atrial fibrillation; Z79.01 Long term (current) use of anticoagulants; J44.9 Chronic obstructive pulmonary disease, unspecified; Z88.5 Allergy status to narcotic agent; Z88.8 Allergy status to other drugs, medicaments and biological substances
CPT/HCPCS: 00320; J0131; J0330; J2001; J2405; J2704; J7121

== ENCOUNTER 2022-09-08 19:01 | Emergency (ER) | payer MEDICARE ==
[~2022-09-08] VITALS: Ht 170.2 cm; Wt 51.4 kg
[2022-09-08] MEDS ORDERED: CEPHALEXIN500 M1 PO (22:33)
== END 2022-09-08 22:54 | disposition home or self-care (01) ==
LOC: ED 19:01
DX: I80.8 Phlebitis and thrombophlebitis of other sites (principal); L03.113 Cellulitis of right upper limb; F17.200 Nicotine dependence, unspecified, uncomplicated; Z88.5 Allergy status to narcotic agent; Z88.8 Allergy status to other drugs, medicaments and biological substances; Z91.09 Other allergy status, other than to drugs and biological substances; Z79.01 Long term (current) use of anticoagulants
CPT/HCPCS: 36415; 80053; 85025; 93971; A9270; J7030

== ENCOUNTER 2022-09-18 08:55 | Day surgery (SDC) | payer MEDICARE ==
[~2022-09-18] VITALS: Ht 165.1 cm; Wt 50.5 kg
--- NOTE | ~2022-09-18 | OR ---
[facility] [address] [place], [place] [address] Draft DATE OF OPERATION: 09/18/2022 SURGEON: Maricel Lyons MD PREOPERATIVE DIAGNOSIS: Right tonsillar carcinoma, ongoing chemotherapy and radiation therapy. POSTOPERATIVE DIAGNOSIS: Right tonsillar carcinoma, ongoing chemotherapy and radiation therapy. PROCEDURE: 1. Placement of left subclavian Port-A-Cath device (Bard port). 2. Surgeon-directed fluoroscopy. ANESTHESIA: Local with monitored anesthesia care, Salty Rooney CRNA and local 10 mL of 0.25% Marcaine with epinephrine. INDICATION: This 77-year-old white woman is a patient of Kamryn Andino and primary care provider, Gita Griffin and has been diagnosed with right tonsillar carcinoma. She is undergoing chemotherapy and radiation therapy currently. She now needs a central venous access for chemotherapy as her peripheral veins are now poorly tolerating the regimen. She does have some fullness, swelling and mild edema of the right lateral neck related to radiation as well as the location of the tumor bed and on that basis, a subclavian approach for Port-A-Cath placement has been recommended. The risk of bleeding, infection, pneumothorax, and other unforeseen complications were reviewed with her. She understands and wished to proceed. FINDINGS: Dark, nonpulsatile blood was noted from the left subclavian vein. The catheter was placed without problem and good function is noted. Fluoroscopy confirmed the catheter to be in the superior vena cava and good function is noted. DESCRIPTION OF PROCEDURE: The patient was brought to the operating room, placed in the supine position with mild Trendelenburg. The arms were placed at the side. Preoperative antibiotic Ancef was given. Sequential compression device stockings were used and heparin subcutaneously administered. The upper torso was prepared with a chlorhexidine solution and draped sterilely including all the neck and upper chest. PATIENT NAME: KATTY QUINN OPERATIVE REPORT DATE OF : 45 REPORT #: [id number] PHYSICIAN: MARICEL LYONS MD PCP: GITA GRIFFIN MD REPORT IS CONFIDENTIAL AND NOT TO BE RELEASED WITHOUT AUTHORIZATION [facility] [address] [place], [place] [address] Draft After satisfactory sedation, 0.25% Marcaine was injected in the left infraclavicular space. Using the Seldinger technique with a Bard port catheter kit needle and 3 mL syringe, the left subclavian vein was easily accessed showing dark nonpulsatile blood. A flexible J-wire was passed down the needle. Under fluoroscopic control, the wire was found to be in the right heart system. A transverse injection over the left pectoralis of the local anesthetic was undertaken. Transverse incision was made and electrocautery was used for hemostasis. A pocket was developed inferiorly. The port was partially secured to the pectoralis fascia. At the site from which the wire emanated, an 11 blade was used to incise the skin. A dilator and subsequent dilator and peel-away sheath introducer passed over the wire and the wire and dilator removed. Vigorous dark nonpulsatile bleeding was noted. The previously inspected Groshong-tip catheter for the Bard port kit was passed down the sheath as far as possible and the sheath removed completely. A syringe was used to aspirate in the port, which showed dark nonpulsatile blood. The patient was then placed in the neutral position and a small amount of IV contrast placed in the catheter. Under fluoroscopic control, the catheter tip was withdrawn to the superior vena cava. Irrigation was undertaken with saline. Using the tunneling device, the catheter was delivered to the port pocket site, trimmed to the appropriate length and secured to the port with the enclosed collar device per manufacture's instructions. The previously placed Vicryl sutures were secured in place. The curve on the catheter appeared to be appropriate. Fluoroscopy was used to confirm the position of the catheter and the contour of the catheter showing no sign of kink or other abnormality. Aspiration on the port and irrigation showed dark nonpulsatile blood and easy flushing. The port pocket was then secured with interrupted 2-0 Vicryl and a running subcuticular 3-0 Vicryl for the skin. Steri-Strips were applied as was an Acticoat dressing. The subclavian incision was similarly approximated. The patient was taken to the recovery room in good condition and suffered no complication. Sponge, needle, and instrument counts were reported as correct x3. MD SARAI Solomon/MODL PATIENT NAME: KATTY QUINN OPERATIVE REPORT DATE OF : 45 REPORT #: [id number] PHYSICIAN: MARICEL LYONS MD PCP: GITA GRIFFIN MD REPORT IS CONFIDENTIAL AND NOT TO BE RELEASED WITHOUT AUTHORIZATION [address] [address] Draft /[id number] cc: SHAUN Lewis MD Gary Crabtree, MD Juno Choe, MD, PH.D. Copies: GRAYSON COMER MD, GARY MD CHOE, JUNO ~ PATIENT NAME: KATTY QUINN DEBRA OPERATIVE REPORT DATE OF : 45 REPORT #: [id number] PHYSICIAN: MARICEL LYONS MD PCP: GITA GRIFFIN MD REPORT IS CONFIDENTIAL AND NOT TO BE RELEASED WITHOUT AUTHORIZATION
[~2022-09-18 08:55] MED LIST changes: +BENAZEPRIL HCL10 MG; +CEPHALEXIN500 M1 PO
[2022-09-18] MEDS ORDERED: OXYCODON-ACETA1 EAC2 PO (14:15)
[2022-09-18] MEDS ORDERED: ACETAMINOPHEN500 MG PO (14:15)
--- NOTE | 2022-09-18 15:25 | NUR ---
09/18/22 1525 Sheets,Karissa 1401 PT ARRIVED TO PACU ON RA AND TLAKING TO RN. PT REPORTS SMALL AMOUNT OF PAIN IN LEFT CHEST THAT IS TOLERABLE. AFIB NOTED AND BASELINE FOR PT PER DATA ENGINEER. 1415 X-RAY AT BEDSIDE AND MD TALKING TO PT AFTER LOOKING AT XRAY. PT IN AND OUT OF AFIB. PT DENIES NAUSEA. 1430 PT SIPPING WATER AND TALKING TO DIGITAL MEDIA MANAGER AT BEDSIDE. 1450 PT DRESSED WITHOUT CONCERNS. DC INSTRUCTIONS GIVEN. 1500 PT DC VIA WC WITH PAPERWORK AND RX, DAUGHTER UPDATED AND ALL QUESTIONS ANSWERED.
== END 2022-09-18 15:00 | disposition home or self-care (01) ==
LOC: DS 08:55
PROVIDERS: ATTEND Surgery
DX: C09.9 Malignant neoplasm of tonsil, unspecified (principal); R63.4 Abnormal weight loss; Z90.711 Acquired absence of uterus with remaining cervical stump
CPT/HCPCS: 71045; 76000; C1788; J0690; J1644; J2704; J7121

== ENCOUNTER 2022-10-07 08:58 | Day surgery (SDC) | payer MEDICARE ==
[~2022-10-07] VITALS: Ht 170.2 cm; Wt 48.2 kg
[~2022-10-07 08:58] MED LIST changes: +ACETAMINOPHEN500 MG PO; +OXYCODON-ACETA1 EAC2 PO; +PREDNISONE20 MG PO
[2022-10-07] MEDS ORDERED: NEURONTIN300 MG PO (09:19)
[2022-10-07] MEDS ORDERED: BENADRYL25 MG PO (09:19)
--- NOTE | 2022-10-07 09:54 | NUR ---
OUTPATIENT REFERRAL SENT TO ME FOR NUTRITION ASSESSMENT AND RECOMMENDATIONS FOR PEG TUBE FEEDING IT IS EXPECTED THAT HER BY MOUTH INTAKE WILL DECREASE AND HER CALORIE AND PROTEIN NEEDS WILL NOT BE MET BY MOUTH. PATIENT HAS TONSILAR CANCER. DR. PRIETO OTOOLE IS DOING RADIATION THERAPY. PATIENT IS CURRENTLY ABLE TO EAT/DRINK BY MOUTH BUT ONLY SOFT FOODS SUCH PUDDING AND 3 ENSURE PLUS OR GLUCERNA DRINKS PER DAY (PATIENT DOES NOT HAVE DIABETES, THE GLUCERNA IS FREE FROM THE CANCER CENTER). PATIENT'S DAUGHTER, ISAURA, WILL BE HELPING WITH THE FEEDINGS AT HOME. ESTIMATED CALORIE NEEDS: 0267-2930 (30-35 LIAM/KG) ESTIMATED PROTEIN NEEDS: 60-75 GRAMS/DAY (1.2-1.5 GM/KG) ESTIMATED FLUID NEEDS: AT LEAST 1500 ML/DAY (30 ML/KG) PEG FEEDING RECS: JEVITY 1.2 FORMULA, 5 CARTONS PER DAY. I SUGGESTED SHE START BY BOLUSING 1/2 CARTON THEN WAIT 20 MIN. AND BOLUS THE OTHER 1/2 CARTON. THIS WILL ALLOW THE STOMACH TO ADJUST TO THE VOLUME BEING INFUSED. I ALSO SUGGESTED AIMING FOR 1.5 CARTONS FOR BREAKFAST, 2 FOR LUNCH, AND 1.5 FOR DINNER OR SOMETHING SIMILAR. FLUSH WITH 100 ML WATER AFTER EACH FEEDING. 5 CARTONS OF JEVITY 1.2 PROVIDES 1,425 CALORIES, 66 GM PROTEIN, 955 ML WATER. A NOTE WILL BE SENT TO DR. OTOOLE'S OFFICE SO THEY CAN ASSIST IN SETTING UP GETTING THE FORMULA AND SUPPLIES DELIVERED TO THE PATIENT'S HOME. I WILL FOLLOW-UP WITH PATIENT AN OUTPATIENT.
--- NOTE | 2022-10-07 12:15 | NUR ---
10/07/22 1215 Keiry Trinidad 1036 PT ARRIVED IN PACU SLEEPY WITH NO C/O'S. [address] AT BEDSIDE. ALL QUESTIONS ANSWERED. 1120 SNORING. 1130 SITTING AT BEDSIDE GETTING DRESSED WITH STAND BY ASSIST. 1145 DC INSTRUCTIONS GIVEN AND SHOWN HOW TO FLUSH PEG TUBE TO PT/DAUGHTER. ANSWERED ALL QUESTIONS AND BOOKLET GIVEN ON HOW TO CARE/FLUSH PEG TUBE. 1150 LEFT VIA W/C.
--- NOTE | 2022-10-08 11:36 | OR ---
[facility] [address] [place], [place] [address] Signed DATE OF OPERATION: 10/07/2022 SURGEON: Maricel Lyons MD PREOPERATIVE DIAGNOSES: 1. Right tonsillar carcinoma, ongoing chemotherapy and radiation therapy. 2. Oropharyngeal aphthous lesions, difficulty swallowing and weight loss. POSTOPERATIVE DIAGNOSES: 1. Right tonsillar carcinoma, ongoing chemotherapy and radiation therapy. 2. Oropharyngeal aphthous lesions, difficulty swallowing and weight loss. PROCEDURES: 1. Upper endoscopy showing diffuse gastritis. 2. Percutaneous endoscopic gastrostomy tube placement. ANESTHESIA: Propofol infusion; Jaz Alfonso, TEMPER MILL ROLLER and local 10 mL of 1% lidocaine. INDICATION: This 77-year-old white woman is a patient of Dr. Griffin and was found to have a right tonsillar carcinoma as diagnosed by Dr. Eubanks. She has been under the therapy of Dr. Dahl and Lyndsey including chemotherapy and radiation therapy. A Port-A-Cath has been in place and has been functioning well. The patient has been recommended to have a percutaneous endoscopic (PEG) feeding tube as she is having difficulty maintaining her weight. She does have some aphthous lesions of her oropharyngeal area. She does not have complete dysphagia but swallowing of food is becoming more problematic. She understands the risk of PEG tube placement including but not limited to bleeding, infection, dislodgement and so on. She understands and she wished to proceed. FINDINGS: Upper endoscopy did demonstrate rather diffuse gastritis but no sign of ulceration. The esophagus was normal. There was no gastric outlet obstruction at the pylorus. The duodenum was normal. Placement of PEG feeding tube was without complication and appears to be functioning well. DESCRIPTION OF PROCEDURE: The patient was brought to the endoscopy suite and placed in the supine position. Preoperative antibiotic Ancef was given. Sequential compression device stockings were used. She was given intravenous sedation by the metal cans supervisor. Abdominal examination Electronically Signed By: MARICEL LYONS MD 10/08/22 1142 PATIENT NAME: KATTY QUINN OPERATIVE REPORT DATE OF : 45 REPORT #: [id number] PHYSICIAN: MARICEL LYONS MD PCP: FORREST GRIFFIN MD REPORT IS CONFIDENTIAL AND NOT TO BE RELEASED WITHOUT AUTHORIZATION [facility] [address] [place], [place] [address] Signed confirming no evidence of scars. A bite block was placed. Lidocaine hypopharyngeal anesthesia had been administered. An Olympus video upper endoscope was passed in the hypopharynx. The vocal cords appeared normal. Scope was advanced to the esophagus, which throughout its length was normal. The scope was passed to the stomach, which was insufflated with air. There appeared to be diffuse gastritis but no sign of actual ulceration. The pylorus was normal. Scope was passed into the duodenum, which was normal. The scope was withdrawn and abdominal palpation undertaken. Transillumination was without impediment and a bit lower than generally speaking. The area of maximum impulse upon impression of the anterior abdominal wall of the stomach and maximum transillumination was designated as a site for PEG tube. The area was prepared with a Betadine solution and draped sterilely. A 1% lidocaine was injected subcutaneously. The site was incised with an 11 blade. Using the enclosed angiocatheter under direct visualization with the endoscope, the catheter was passed into the gastric lumen. The wire enclosed in the RawFlow PEG tube kit was passed into the angiocatheter and using the snare also within the kit, the wire was grasped and withdrawn in continuity with the scope. The looped end of the wire was then affixed to the catheter per manufacture's instructions and gently drawn down the esophagus into the stomach and secured against the abdominal wall. The endoscope was reinserted and found to be minimal trauma to the distal esophagus. The position of the us of the PEG tube was good. The enclosed flange was placed over the tubing and anti-infective ointment applied to the site. The round flange was secured snugly but not tight against the skin and 0 nylon tie was used to secure the flange more fully. Sutures were not used to secure the flange only tightening of the neck of the flange to the catheter itself. The rate control device was applied as was the infusion port. Irrigation under direct visualization of the catheter with tap water showed good function of the catheter and well positioned. Photographs were taken throughout. The scope was carefully withdrawn. There were no other findings of concern. The catheter was then secured to the abdominal wall with an OpSite dressing secured in place. MD SARAI Solomon/ARIANAL /[id number] Electronically Signed By: MARICEL LYONS MD 10/08/22 1142 PATIENT NAME: KATTY QUINN OPERATIVE REPORT DATE OF : 45 REPORT #: [id number] PHYSICIAN: MARICEL LYONS MD PCP: FORREST GRIFFIN MD REPORT IS CONFIDENTIAL AND NOT TO BE RELEASED WITHOUT AUTHORIZATION [facility] [address] [place], [place] [address] Signed cc: MD Michael Parker MD Juno Choe, MD, PH.D. Copies: GRAYSON COMER MD, GARY MD CHOE, JUNO ~ Electronically Signed By: MARICEL LYONS MD 10/08/22 1142 PATIENT NAME: KATTY QUINN DEBRA OPERATIVE REPORT DATE OF : 45 REPORT #: [id number] PHYSICIAN: MARICEL LYONS MD PCP: FORREST GRIFFIN MD REPORT IS CONFIDENTIAL AND NOT TO BE RELEASED WITHOUT AUTHORIZATION
== END 2022-10-07 11:50 | disposition home or self-care (01) ==
LOC: DS 08:58
PROVIDERS: ATTEND Surgery
PROC: 0DH63UZ Insertion of Feeding Device into Stomach, Percutaneous Approach (ICD-10-PCS; principal; 2022-10-07 09:25)
DX: C09.9 Malignant neoplasm of tonsil, unspecified (principal); R63.4 Abnormal weight loss; Z90.711 Acquired absence of uterus with remaining cervical stump; Z68.1 Body mass index [BMI] 19.9 or less, adult
CPT/HCPCS: J0690; J1644; J2704; J7121

== ENCOUNTER 2022-10-31 03:55 | Emergency (ER) | payer MEDICARE ==
[~2022-10-31 03:55] MED LIST changes: +BENADRYL25 MG PO; +NEURONTIN300 MG PO
[2022-10-31] MEDS ORDERED: ONDANSETRON ODT4 MG PO (09:32)
[2022-10-31] MEDS ORDERED: MORPHINE S10 MG/5 ML PO (09:32)
== END 2022-10-31 10:17 | disposition home or self-care (01) ==
LOC: ED 03:55
DX: I71.40 Abdominal aortic aneurysm, without rupture, unspecified (principal); I74.5 Embolism and thrombosis of iliac artery; K55.9 Vascular disorder of intestine, unspecified; I48.91 Unspecified atrial fibrillation; F17.200 Nicotine dependence, unspecified, uncomplicated; Z20.822 Contact with and (suspected) exposure to COVID-19; Z91.040 Latex allergy status; Z88.8 Allergy status to other drugs, medicaments and biological substances; Z88.5 Allergy status to narcotic agent; Z79.899 Other long term (current) drug therapy; Z79.01 Long term (current) use of anticoagulants
CPT/HCPCS: 36415; 70450; 71045; 72125; 73080; 74177; 80053; 81003; 82553; 83605; 83690; 85025; 85610; 87502; 99284-25; C9803; G0480; J1170; J7121; Q9967; U0003